=== PATIENT | male | born 1970 | race Caucasian/White ===

== ENCOUNTER 2018-09-13 20:54 | Emergency (ER) | payer OTHER, MEDICAID, SELFPAY ==
[2018-09-13] VITALS (12 sets, daily range): BP systolic 85–117; BP diastolic 50–67; PULSE 102–110; RESP 18–22; TEMP 36.5–36.7; O2SAT 89–96; BMI 29.2
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
--- NOTE | 2018-09-13 21:24 | PC.NURSE ---
Alert, oriented, skin warm and dry to touch, resp at 22 non labored. remains on 02 at 3 liters per canula. C/o severe abd pain. B/P remain low. Morphine 1 mg IV given. Pt transported to ct
[2018-09-13 21:28] LABS: Basophils % 0.3 % (0.1-2.0); Eosinophils # 0.2 K/mm3 (0.0-0.4); Eosinophils % 1.4 % (0.1-12.0); Lymphocytes # 1.9 K/mm3 (0.7-4.5); Lymphocytes % 13.8 % (10-50); Mean Corpuscular HGB Conc 31.6 g/dL (31.8-35.4); Mean Corpuscular Hemoglobin 28.8 pg (27.0-31.2); Mean Corpuscular Volume 91.3 fl (80-94); Mean Platelet Volume 6.7 fl (7.4-10.4); Monocytes # 0.9 K/mm3 (0.1-1.0); Monocytes % 6.4 % (1.7-9.3); Neutrophils # 10.6 K/mm3 (1.8-7.8); Neutrophils % 78.1 % (37.0-80.0); Platelet Count 486 K/mm3 (142-424); Red Blood Count 2.59 M/mm3 (4.60-6.20); Red Cell Distribution Width 13.1 % (11.5-17.5); White Blood Count 13.5 K/mm3 (4.8-10.8)
[2018-09-13 21:34] LABS: Hematocrit 23.7 % (42.0-52.0); Hemoglobin 7.5 g/dL (14.1-18.0)
[2018-09-13 21:37] LABS: Alanine Aminotransferase 24 U/L (12-78); Albumin Level 2.5 gm/dL (3.4-5.0); Albumin/Globulin Ratio 0.7 (1.1-1.8); Alkaline Phosphatase 80 U/L (46-116); Anion Gap 17.3 mEq/L (5-15); Aspartate Amino Transferase 19 U/L (15-37); Bilirubin,Total 0.5 mg/dL (0.2-1.0); Blood Urea Nitrogen 15 mg/dL (7-18); Calcium 8.4 mg/dL (8.5-10.1); Carbon Dioxide 22 mmol/L (21.0-32.0); Chloride 100 mmol/L (98-107); Creatinine Clearance Estimated 124 mL/min (50-200); Estimated Glomerular Filt Rate 80 ml/min (>60); GFR (African American) 97 ML/MIN (>60); Globulin 3.7 gm/dl (1.3-3.2); Glucose 140 mg/dL (74-106); Potassium 4.3 mmoL/L (3.5-5.1); Sodium 135 mmol/L (136-145); Total Protein,Serum 6.2 gm/dL (6.4-8.2); Troponin I < 0.02 ng/ml (0.00-0.06)
--- NOTE | 2018-09-13 21:43 | PC.NURSE ---
Rashmi Grossman Calling to see about flight
--- NOTE | 2018-09-13 21:47 | PC.NURSE ---
[employer] called declined for weather will check other services.
--- NOTE | 2018-09-13 21:49 | [facility].EDGENADL ---
ED Disposition Clinical Impression: Pneumothorax on left Traumatic rupture of spleen Qualifiers: Encounter type: initial encounter Qualified Code(s): S36.09XA - Other injury of spleen, initial encounter Ribs, multiple fractures Qualifiers: Encounter type: initial encounter Fracture type: closed Laterality: bilateral Qualified Code(s): S22.43XA - Multiple fractures of ribs, bilateral, initial encounter for closed fracture Right pulmonary contusion Qualifiers: Encounter type: initial encounter Qualified Code(s): S27.321A - Contusion of lung, unilateral, initial encounter Disposition: Xfer Short-Term Hosp Condition on Discharge: Critical Referrals: Provider,Referral, MD [Primary Care Provider] - Forms: Transfer Record - ED - Critical Care Critical Care Time: Yes Attestation: On 09/13/18, the high probability of a clinically significant, sudden or life threatening deterioration of the following system(s) required my full and direct attention, intervention and personal management. The time I documented below is in addition to time spent performing reported procedures but includes the following listed in this critical care notation. Total Critical Care Time: 60 Vital system(s) involved:: Shock (Hemorrhage) My critical care processes included: Assessment & monitoring of V/S, Initial and Re-exams, Data Review/Interpretation, Coordinating Care, Medication Orders and management Medical Decision Making - Medical Records Medical records reviewed: Yes: I reviewed the patient's medical records. - Jose Inquiry Pt receiving controlled substance: No Vital Signs: 09/13/18 20:54 09/13/18 20:56 Temperature 98.0 F Temperature Source Oral Pulse Rate [Right Brachial] 106 H 102 H Respiratory Rate 20 Blood Pressure [Right Arm] 93/57 L 96/57 L Blood Pressure Mean [Right Arm] 69 70 Blood Pressure Source [Right Arm] Automatic Cuff Automatic Cuff Blood Pressure Position [Right Arm] Supine Sitting 02 Sat by Pulse Oximetry 92 L 89 L Oxygen Delivery Method Nasal Cannula Room Air Oxygen Flow Rate (LPM) 3 - Lab Data Lab results reviewed: Yes: I reviewed the patient's lab results. Lab Results 09/13/18 21:05: WBC 13.5 H, RBC 2.59 L, Hgb 7.5 L*, Hct 23.7 L*, MCV 91.3, MCH 28.8, MCHC 31.6 L, RDW 13.1, Plt Count 486 H, MPV 6.7 L, Neut % (Auto) 78.1, Lymph % (Auto) 13.8, [place] % (Auto) 6.4, Eos % (Auto) 1.4, Baso % (Auto) 0.3, Neut # (Auto) 10.6 H, Lymph # (Auto) 1.9, [place] # (Auto) 0.9, Eos # (Auto) 0.2, Baso # (Auto) 0.0 09/13/18 21:05: Sodium 135 L, Potassium 4.3, Chloride 100, Carbon Dioxide 22, Anion Gap 17.3 H, BUN 15, Creatinine 1.00, Estimated Creat Clear 124, Estimated GFR 80, Est GFR ( Amer) 97, Glucose 140 H, Calcium 8.4 L, Total Bilirubin 0.5, AST 19, ALT 24, Alkaline Phosphatase 80, Troponin I < 0.02, Total Protein 6.2 L, Albumin 2.5 L, Globulin 3.7 H, Albumin/Globulin Ratio 0.7 L Result diagrams: 09/13/18 21:05 09/13/18 21:05 Orders (Tests/Meds): ED MEDICATIONS Discontinued Medications Generic Name Dose Route Start Last Admin Trade Name Freq PRN Reason Stop Dose Admin Morphine Sulfate 1 mg 09/13/18 21:23 09/13/18 21:24 Morphine 2mg/Ml Syringe IV 09/13/18 21:24 1 mg ONCE ONE Administration ORDERS Category Date Time Status CT abdomen pelvis wo con Stat Cat Scan 09/13/18 21:[address] cervical spine wo con Stat Cat Scan 09/13/18 21:[address] chest wo con Stat Cat Scan 09/13/18 21:05 Ordered XR chest portable Stat Exams 09/13/18 21:07 Taken ECG Request by /Roseanne Stat Y 09/13/18 21:05 Ordered - Radiology Data #1 Image(s): Chest Image Reviewed: Yes I reviewed the patient's radiology image Preliminary Findings: Abnormal (pul contusion) - CT Data CT Scan: C-Spine, Abdomen, Pelvis, Chest Time Received: 22:[address] Reviewed: Yes: I have viewed the radiologist's interpretation Preliminary Findings: Abnormal (see reports ) - ECG Data Tracing #1 Normal
--- NOTE | 2018-09-13 21:56 | ED_ITS ---
ED Disposition Clinical Impression: Pneumothorax on left Traumatic rupture of spleen Qualifiers: Encounter type: initial encounter Qualified Code(s): S36.09XA - Other injury of spleen, initial encounter Ribs, multiple fractures Qualifiers: Encounter type: initial encounter Fracture type: closed Laterality: bilateral Qualified Code(s): S22.43XA - Multiple fractures of ribs, bilateral, initial encounter for closed fracture Right pulmonary contusion Qualifiers: Encounter type: initial encounter Qualified Code(s): S27.321A - Contusion of lung, unilateral, initial encounter Disposition: Xfer Short-Term Hosp Condition on Discharge: Critical Referrals: Provider,Referral, MD [Primary Care Provider] - Forms: Transfer Record - ED - Critical Care Critical Care Time: Yes Attestation: On 09/13/18, the high probability of a clinically significant, sudden or life threatening deterioration of the following system(s) required my full and direct attention, intervention and personal management. The time I documented below is in addition to time spent performing reported procedures but includes the following listed in this critical care notation. Total Critical Care Time: 60 Vital system(s) involved:: Shock (Hemorrhage) My critical care processes included: Assessment & monitoring of V/S, Initial and Re-exams, Data Review/Interpretation, Coordinating Care, Medication Orders and management Medical Decision Making - Medical Records Medical records reviewed: Yes: I reviewed the patient's medical records. - Jose Inquiry Pt receiving controlled substance: No Vital Signs: 09/13/18 20:54 09/13/18 20:56 Temperature 98.0 F Temperature Source Oral Pulse Rate [Right Brachial] 106 H 102 H Respiratory Rate 20 Blood Pressure [Right Arm] 93/57 L 96/57 L Blood Pressure Mean [Right Arm] 69 70 Blood Pressure Source [Right Arm] Automatic Cuff Automatic Cuff Blood Pressure Position [Right Arm] Supine Sitting 02 Sat by Pulse Oximetry 92 L 89 L Oxygen Delivery Method Nasal Cannula Room Air Oxygen Flow Rate (LPM) 3 - Lab Data Lab results reviewed: Yes: I reviewed the patient's lab results. Lab Results 09/13/18 21:05: WBC 13.5 H, RBC 2.59 L, Hgb 7.5 L*, Hct 23.7 L*, MCV 91.3, MCH 28.8, MCHC 31.6 L, RDW 13.1, Plt Count 486 H, MPV 6.7 L, Neut % (Auto) 78.1, Lymph % (Auto) 13.8, [place] % (Auto) 6.4, Eos % (Auto) 1.4, Baso % (Auto) 0.3, Neut # (Auto) 10.6 H, Lymph # (Auto) 1.9, [place] # (Auto) 0.9, Eos # (Auto) 0.2, B aso # (Auto) 0.0 09/13/18 21:05: Sodium 135 L, Potassium 4.3, Chloride 100, Carbon Dioxide 22, Anion Gap 17.3 H, BUN 15, Creatinine 1.00, Estimated Creat Clear 124, Estimated GFR 80, Est GFR ( Amer) 97, Glucose 140 H, Calcium 8.4 L, Total Bilirubin 0.5, AST 19, ALT 24, Alkaline Phosphatase 80, Troponin I < 0.02, Total Protein 6.2 L, Albumin 2.5 L, Globulin 3.7 H, Albumin/Globulin Ratio 0.7 L Result diagrams: 09/13/18 21:05 09/13/18 21:05 Orders (Tests/Meds): ED MEDICATIONS Discontinued Medications Generic Name Dose Route Start Last Admin Trade Name Freq PRN Reason Stop Dose Admin Morphine Sulfate 1 mg 09/13/18 21:23 09/13/18 21:24 Morphine 2mg/Ml Syringe IV 09/13/18 21:24 1 mg ONCE ONE Administration
--- NOTE | 2018-09-13 22:00 | PC.NURSE ---
Pt gave verbal consent to receive blood, pt understood that the blood was uncrossed and not matched and agreed. Verbal consent was given to myself and Can KEVIN.
--- NOTE | 2018-09-13 22:05 | PC.NURSE ---
Lab notified to get 2 units un typed blood to the room.
--- NOTE | 2018-09-13 22:15 | PC.NURSE ---
Second unit of blood started at this.
--- NOTE | 2018-09-13 22:20 | PC.NURSE ---
Report called to Víctor Garcia RN from ER at this time.
--- NOTE | 2018-09-13 22:30 | PC.NURSE ---
EMS at bedside to transfer pt.
--- NOTE | 2018-09-14 01:26 | PC.NURSE ---
Addendum entered by Shu Kang RN 09/14/18 01:27: Blood was started 09/13/18 22:10 Original Note: First unit of blood started at this time. Jo. Fredy KEVIN at the bedside with myself and the pt.
--- NOTE | 2018-09-14 01:28 | PC.NURSE ---
First unit of blood complete.
--- NOTE | 2018-09-14 01:31 | PC.NURSE ---
Late entry Upon arrival to ER room to accompany pt for transport to . Pt noted to have blood transfusion in progress along with 0.9% NS infusing in RFA. LR infusing in RAC. Pt was accompanied by this nurse, jinriksha driver and EMT in route to . During transfer pt c/o pain with rating of 10 on [employer] DELINQUENCY PREVENTION. Pt was administered fentanyl 25 mcg IV x3 per jinriksha driver per MD order @ 2250, 2302, 2317. Pt was also administered additional 1 L LR. VS unstable at times. Pt remained A&O x3 during transfer. Pt arrived to hospital at 2321. Blood vitals are as follows in route to hospital: 2241- 139/83, T 96.9, P 104, R 21, 96% 2L 2250 - 134/81, P 105, R 22, 90% on nonrebreather 2254 - 131/79, P 103, R 21, 100% on nonrebreather 2302 - 137/96, P 105, R 22, 100% nonrebreather 2305 - 141/90, T 96.7, P 102, R 20, 100% nonrebreather, 2nd Unit Blood transfusion Complete 2312 - 148/90, P 106, R 22, R 98% 2 L NC 2317 - 153/115, P 108, R22, 97% 2L NC 2321 - 152/105, T 97.4, P 106, 100% 2L NC, Arrived to hospital
[2018-09-14 07:09] VITALS: BP 117/59; PULSE 107; RESP 20; TEMP 36.6; O2SAT 96
== END 2018-09-13 22:37 | disposition short-term general hospital (02) ==
PROVIDERS: Emergency Provider Emergency Medicine
DX: S22.43XA Multiple fractures of ribs, bilateral, initial encounter for closed fracture (principal); S36.09XA Other injury of spleen, initial encounter; S27.321A Contusion of lung, unilateral, initial encounter; J93.9 Pneumothorax, unspecified; V89.2XXA Person injured in unspecified motor-vehicle accident, traffic, initial encounter
CPT/HCPCS: 36430; 71045; 71250; 72125; 74176; 80053; 84484; 85025; 86850; 93005; 96365; 96375; 96376; 99285; P9016

== ENCOUNTER → 2018-11-15 13:53 | Outpatient (CLI) | payer MEDICAID, SELFPAY ==
[2018-11-15 16:50] LABS: Amphetamine/Metha Screen,Urine Negative ng/mL (<1000); Barbiturates Screen,Urine Negative ng/mL (<200); Benzodiazepines Screen,Urine Negative ng/mL (<200); Cannabinoid Screen,Urine Negative ng/mL (<50); Cocaine Screen,Urine Negative ng/mL (<300); Methadone Screen,Urine Negative ng/mL (<300); Opiate Screen,Urine Negative ng/mL (<300); Phencyclidine Screen,Urine Negative ng/mL (<25)
[2018-11-25 22:24] LABS: Opiates Negative (Cutoff=100)
== END ==
PROVIDERS: Visit Provider Emergency Medicine
DX: R30.0 Dysuria (principal); Z79.891 Long term (current) use of opiate analgesic
CPT/HCPCS: 80305; 80361; 80365; G0480

== ENCOUNTER → 2018-12-13 11:44 | Outpatient (CLI) | payer MEDICAID, SELFPAY ==
--- NOTE | 2018-12-13 11:57 | XR_ITS ---
PROCEDURE: XR KNEE RT 2V CLINICAL INDICATION: knee pain COMPARISON: No exams were available for comparison FINDINGS: No fracture or dislocation. No lytic or blastic change. There is normal mineralization. The joint spaces are well-preserved. No significant degenerative/arthritic changes. No erosive changes evident. Other findings:None. IMPRESSION: No acute findings. Dictated by: Kumar Johnston MD 12/13/2018 14:45 Electronically signed by Kumar Johnston MD in [place] 12/13/2018 14:45
--- NOTE | 2018-12-13 11:57 | XR_ITS ---
PROCEDURE: XR LUMBAR SPINE 2-3V CLINICAL INDICATION: back pain COMPARISON: ABDPELWO CT abdomen pelvis wo con from 09/13/2018 FINDINGS: There is kyphosis of the thoracolumbar junction with mild wedging a T11-T12 and L1 with anterior osteophytes at these levels. This wedging does appear old. No acute fracture or dislocation. No lytic or blastic change. Postsurgical changes are present of the right hip IMPRESSION: Kyphosis of the thoracolumbar spine with chronic wedging of T11-T12 and L1 with degenerative disc disease at these levels. No acute finding. Dictated by: Kumar Johnston MD 12/13/2018 14:34 Electronically signed by Kumar Johnston MD in [facility] 12/13/2018 14:34
--- NOTE | 2018-12-13 11:57 | XR_ITS ---
PROCEDURE: XR SHOULDER RT MIN 2V CLINICAL INDICATION: right shoulder pain COMPARISON: No exams were available for comparison FINDINGS: There are mild osteoarthritic changes of the acromioclavicular joint. The glenohumeral joint has an unremarkable appearance. No fracture or dislocation. No significant subacromial stenosis. IMPRESSION: Mild osteoarthritis of the acromioclavicular joint otherwise negative Dictated by: Kumar Johnston MD 12/13/2018 14:30 Electronically signed by Kumar Johnston MD in [facility] 12/13/2018 14:30
--- NOTE | 2018-12-13 11:57 | XR_ITS ---
PROCEDURE: XR CERVICAL SPINE 3V CLINICAL INDICATION: neck pain Neck pain COMPARISON: No exams were available for comparison FINDINGS: Straightening of cervical lordosis which may be due to patient positioning or muscle spasm. There is 2 mm anterolisthesis of C5 on C6. The disc spaces are well preserved. No fracture or dislocation. No lytic or blastic change. Carotid calcifications are noted. IMPRESSION: Straightening of lordosis otherwise negative Dictated by: Kumar Johnston MD 12/13/2018 14:46 Electronically signed by Kumar Johnston MD in [facility] 12/13/2018 14:46
--- NOTE | 2018-12-13 11:57 | XR_ITS ---
PROCEDURE: XR HIP LT 2-3V W/PELVIS CLINICAL INDICATION: hip pain Posttraumatic pain COMPARISON: No exams were available for comparison FINDINGS: There has been prior ORIF of the right acetabulum with a bone plate and multiple screws at the acetabular region with mild osteoarthritic change of the right hip. There is slight decrease in the left hip joint space superiorly which may be seen with early osteoarthritic change. No acute fracture or dislocation evident. No lytic or blastic change IMPRESSION: Minimal osteoarthritic change of the left hip and right hip with post surgical changes of the right hip Dictated by: Kumar Johnston MD 12/13/2018 15:12 Electronically signed by Kumar Johnston MD in [facility] 12/13/2018 15:12
== END ==
PROVIDERS: PCP Emergency Medicine; Visit Provider Emergency Medicine
DX: M25.552 Pain in left hip (principal); M54.2 Cervicalgia; M25.561 Pain in right knee; M54.9 Dorsalgia, unspecified; M25.511 Pain in right shoulder
CPT/HCPCS: 72040; 72100; 73030; 73502; 73560

== ENCOUNTER → 2019-01-10 14:27 | Outpatient (CLI) | payer MEDICAID, SELFPAY ==
[2019-01-10 20:26] LABS: Amphetamine/Metha Screen,Urine Negative ng/mL (<1000); Barbiturates Screen,Urine Negative ng/mL (<200); Benzodiazepines Screen,Urine Negative ng/mL (<200); Cannabinoid Screen,Urine Negative ng/mL (<50); Cocaine Screen,Urine Negative ng/mL (<300); Methadone Screen,Urine Negative ng/mL (<300); Opiate Screen,Urine Positive ng/mL (<300); Phencyclidine Screen,Urine Negative ng/mL (<25)
== END ==
PROVIDERS: Visit Provider Emergency Medicine
DX: Z79.899 Other long term (current) drug therapy (principal)
CPT/HCPCS: 80305

== ENCOUNTER → 2019-03-13 14:02 | Outpatient (CLI) | payer OTHER, SELFPAY ==
[2019-03-13 16:55] LABS: Amphetamine/Metha Screen,Urine Negative ng/mL (<1000); Barbiturates Screen,Urine Negative ng/mL (<200); Benzodiazepines Screen,Urine Negative ng/mL (<200); Cannabinoid Screen,Urine Negative ng/mL (<50); Cocaine Screen,Urine Negative ng/mL (<300); Methadone Screen,Urine Negative ng/mL (<300); Opiate Screen,Urine Negative ng/mL (<300); Phencyclidine Screen,Urine Negative ng/mL (<25)
[2019-05-20 18:13] LABS: Oxycodone (GC/MS) 392 ng/mL (Cutoff=100)
[2019-05-20 22:06] LABS: Opiates Negative (Cutoff=100); Oxymorphone (GC/MS) 646 ng/mL (Cutoff=100)
== END ==
PROVIDERS: Emergency Medicine; Visit Provider Nurse Practitioner Family
DX: Z79.899 Other long term (current) drug therapy (principal)
CPT/HCPCS: 80305; 80361; 80365; G0480

== ENCOUNTER → 2019-05-08 16:53 | Outpatient (CLI) | payer OTHER, SELFPAY ==
[2019-05-08 20:58] LABS: Amphetamine/Metha Screen,Urine Negative ng/mL (<1000); Barbiturates Screen,Urine Negative ng/mL (<200); Benzodiazepines Screen,Urine Negative ng/mL (<200); Cannabinoid Screen,Urine Negative ng/mL (<50); Cocaine Screen,Urine Negative ng/mL (<300); Methadone Screen,Urine Negative ng/mL (<300); Opiate Screen,Urine Negative ng/mL (<300); Phencyclidine Screen,Urine Negative ng/mL (<25)
== END ==
PROVIDERS: Visit Provider Emergency Medicine
DX: Z79.899 Other long term (current) drug therapy (principal)
CPT/HCPCS: 80305

== ENCOUNTER → 2019-07-31 14:34 | Outpatient (CLI) | payer OTHER, SELFPAY ==
--- NOTE | 2019-07-31 14:44 | XR_ITS ---
PROCEDURE: XR HIP RT 2-3V W/PELVIS CLINICAL INDICATION: right hip pain COMPARISON: ABDPELWO CT abdomen pelvis wo con from 09/13/2018 XR HIP LT 2-3V W/PELVIS from 12/13/2018 FINDINGS: There has been prior surgery of the right hip 2 bone plates over the acetabulum. There are minimal osteoarthritic changes of the right hip. No acute fracture or dislocation. IMPRESSION: Prior ORIF of the right acetabulum with minimal osteoarthritis Dictated by: Kumar Johnston MD 07/31/2019 16:12 Electronically signed by Kumar Johnston MD in [facility] 07/31/2019 16:12
--- NOTE | 2019-07-31 14:44 | XR_ITS ---
PROCEDURE: XR HIP LT 2-3V W/PELVIS CLINICAL INDICATION: left hip pain COMPARISON: XR HIP LT 2-3V W/PELVIS from 12/13/2018 FINDINGS: No fracture or dislocation is evident. No significant degenerative change. No lytic or blastic change. Unremarkable soft tissues. IMPRESSION: Negative left hip Dictated by: Kumar Johnston MD 07/31/2019 16:10 Electronically signed by Kumar Johnston MD in [facility] 07/31/2019 16:10
== END ==
PROVIDERS: PCP Emergency Medicine; Visit Provider Orthopaedic Surgery
DX: M25.551 Pain in right hip (principal); M25.552 Pain in left hip
CPT/HCPCS: 73502

== ENCOUNTER → 2019-09-17 16:46 | Outpatient (CLI) | payer OTHER, SELFPAY ==
[2019-09-19 10:59] LABS: Testosterone,Total 203 ng/dL (264-916)
== END ==
PROVIDERS: Visit Provider Emergency Medicine
DX: R53.83 Other fatigue (principal); R79.89 Other specified abnormal findings of blood chemistry
CPT/HCPCS: 84403

== ENCOUNTER → 2019-10-08 10:00 | Outpatient (CLI) | payer OTHER, SELFPAY ==
[2019-10-09 06:38] LABS: Testosterone,Total 227 ng/dL (264-916)
== END ==
PROVIDERS: Visit Provider Physician Assistant
DX: R79.89 Other specified abnormal findings of blood chemistry (principal)
CPT/HCPCS: 36415; 84403

== ENCOUNTER → 2019-10-29 15:16 | Outpatient (CLI) | payer OTHER, SELFPAY ==
[2019-10-29 17:32] LABS: Coronavirus 19 IgG Antibody Negative (Negative); Coronavirus 19 IgM Antibody Negative (Negative)
== END ==
PROVIDERS: PCP Emergency Medicine; Visit Provider Emergency Medicine
DX: Z01.818 Encounter for other preprocedural examination (principal); G47.33 Obstructive sleep apnea (adult) (pediatric); G47.36 Sleep related hypoventilation in conditions classified elsewhere; R06.83 Snoring; R40.0 Somnolence
CPT/HCPCS: 36415; 86328; 95811

== ENCOUNTER → 2019-12-10 12:57 | Outpatient (CLI) | payer OTHER, SELFPAY ==
--- NOTE | 2019-12-10 12:57 | MR_ITS ---
PROCEDURE: MR HIP LT WO CON CLINICAL INDICATION: left hip pain Pt. c/o left hip pain with no known injury or trauma. Pt has had prior rt hip surgery. prior left hip xrays done 07/31/19 COMPARISON: CR XR HIP LT 2-3V W/PELVIS from 07/31/2019 TECHNIQUE: Routine multiplanar multi echo sequences are performed without gadolinium enhancement. FINDINGS: There is significant artifact from the right acetabular plates and screws obscuring evaluation of the right hip. The left hip has an unremarkable appearance. There is no evidence of fracture or dislocation. No evidence of avascular necrosis. No bony destructive process apparent. No overlying soft tissue mass or abnormal fluid collection. No significant effusion. There is some increased activity posterior to the superior aspect of the greater trochanter nonspecific but could be seen with trochanteric bursitis. IMPRESSION: 1. Possible trochanteric bursitis on the left. 2. Otherwise negative MRI of the left hip Dictated by: Kumar Johnston MD 12/12/2019 10:42 Kumar Johnston MD in [facility] 12/12/2019 10:42
== END ==
PROVIDERS: PCP Emergency Medicine; Visit Provider Emergency Medicine
DX: M25.552 Pain in left hip (principal)
CPT/HCPCS: 73721

== ENCOUNTER → 2020-01-21 08:58 | Outpatient (POV) | payer OTHER, SELFPAY ==
[2020-01-21 09:17] VITALS: BP 139/82; PULSE 85; RESP 18; O2SAT 98; BMI 32.4
--- NOTE | 2020-01-21 10:12 | HMH.PMCON ---
Assessment and Plan (1) Trochanteric bursitis of left hip Status: Chronic Category: Medical Code(s): M70.62 - Trochanteric bursitis, left hip (2) Sacroiliitis Status: Chronic Category: Medical Code(s): M46.1 - Sacroiliitis, not elsewhere classified - Assessment and plan all Dx Assessment and Plan for all problems:: We will schedule the patient for a left SI joint injection left greater trochanteric bursa injection. I will follow-up with him after this reassess his symptoms at that time he has been instructed to call the office if he has any issues prior to his next appointment. We will also send him to physical therapy to develop a home program. Dr. Payne has reviewed this note and agrees with this plan of care. This note was dictated using voice recognition software and may contain errors or omissions HPI - Data of Consult Consult date: 01/21/20 Requesting Physician: Deborah Cervantes APRN Primary Care Provider: Anatoliy Coyne MD - Consult Narrative Reason for consult: Hip pain, back pain History of present illness: Mr. Cooper is a 49 year old male patient is a pleasant 49-year-old white male who presents today for consultation regards to his left hip and low back pain. Patient had a surgery on his right hip back 18 years ago. Patient's not having much pain from this however he does have left hip pain left low back pain. Patient has extreme tenderness over his left SI. Patient also has extreme tenderness over his left greater trochanteric bursa. Patient rates his pain a 6 out of 10. Patient is currently on a low dose of Percocet which has not been extremely helpful however it does take the edge off of his pain. It is an appropriate dose. Patient does have a positive Pascual test SI joint compression test and distraction test and Kirstie's test on the left side. Dr. Payne has reviewed this note and agrees with this plan of care. This note was dictated using voice recognition software and may contain errors or omissions states that he would like to transition physical therapy to a home based program. I do agree with this. CC: Deborah Cervantes APRN [facility] History I have reviewed the patient's past medical history: Yes Medical History: Reports:: Anxiety, Hypertension Denies:: Cancer, Diabetes Mellitus Type 1, Diabetes Mellitus Type 2, MRSA *Have you ever received a pneumonia vaccine?: Yes *Have you received a flu vaccine this season?: Yes Other Medical History: Reports: Other Laterality Cases: Right: Arthroscopy Hip Other Surgeries: Yes: No Previous Surgery, Colonoscopy, Hernia Repair, Splenectomy Amputation: No Fractures: Yes - *Social History Smoking Status: Current every day smoker Tobacco Type: cigarettes # Packs/Day (cigarettes): 1 Alcohol Intake: never Alcohol Intake Frequency:: a few times a month Substance Use Type: denies use *Occupational Status:: other Housing: house Household Members: other *Travel in the last 8 weeks: None - Psychiatric History Pschychiatric History:: Reports:: Anxiety Family Hx:: Unable to obtain Review of Systems - Review of Systems ROS General: no recent weight change, no fever, no sleep disturbances Respiratory: no cough, no shortness of air, no recurring pulmonary infections Cardiovascular/Peripheral Vascular: No chest pain, No palpitations, no edema, no shortness of breath. Gastrointestinal: no new onset incontinence, normal bowel movements reported Genitourinary: no new onset incontinence Musculoskeletal: Left SI joint pain, left hip pain Psychiatric: normal mood/ affect Neurological: [denies new onset weakness in extremities], [denies new onset balance issues] Meds Home Medications Medication Instructions Recorded Confirmed Type nicotine 21 mg/24 hr daily 1 patch TRANSDERMA DAILY #30 each 05/08/19 01/07/20 Rx transdermal patch lisinopril 20 mg tablet 20 mg PO DAILY #30 tab 11/14/19 01/07/20 Rx loratadine 10 mg tablet 10 mg PO D
== END ==
PROVIDERS: PCP Emergency Medicine; Visit Provider Clinical Nurse Specialist Family Health
DX: M70.62 Trochanteric bursitis, left hip (principal); M46.1 Sacroiliitis, not elsewhere classified
CPT/HCPCS: 99202

== ENCOUNTER → 2020-01-21 14:21 | Outpatient (CLI) | payer OTHER, SELFPAY ==
--- NOTE | 2020-01-21 14:21 | MR_ITS ---
PROCEDURE: MR LUMBAR SPINE WO CON CLINICAL INDICATION: back pain LBP WITH BILATERAL HIP PAIN BUT LT HIP IS WORSE. SYMPTOMS X3-4YRS. NO INJURY. LT LEG PAIN. PRIOR X-RAY 12-13-18 COMPARISON: CR XR LUMBAR SPINE 2-3V from 12/13/2018 TECHNIQUE: Standard multiplanar multiecho sequences are performed without contrast. 3-D MIP and myelographic images are also rendered and reviewed FINDINGS: There is normal alignment. There is kyphosis of the lower thoracic spine. Mild degenerative disc disease T11-T12. Degenerative disc disease with endplate irregularity is present at T12-L1 with mild bulging disc. The spinal cord ends at the L1-L2 level. There is minimal central disc protrusion at T12-L1 without impingement. There is mild narrowing of the canal at this level at 11 mm. There is mild wedge contour of T12 and L1 which appears chronic. L1-L2: Unremarkable. L2-L3: Unremarkable. L3-L4: Mild facet hypertrophic change with a small amount fluid in the facet joints at this level. L4-5: Mild facet hypertrophic change L5-S1: Bulging disc with a small broad based central disc protrusion slightly eccentric toward the left. This disc protrusion abuts the anterior medial aspect of both S1 nerve roots with bilateral lateral recess narrowing. Annular fissure is present centrally. There is facet hypertrophic change with bilateral foraminal narrowing greater on the left. There is a small area of increased T2 signal in the inferior endplate of L5 posteriorly. Incidental note is made of a 2 cm left renal cyst. IMPRESSION: 1. Kyphosis of the lower thoracic spine with degenerative disc disease at T11-T12 and T12-L1 with bulging disc and small central disc protrusion at T12-L1 and with narrowing of the canal at that level. No impingement. 2. L3-L4: Mild facet hypertrophic change with a small amount fluid in the facet joints at this level. 3. L4-5: Mild facet hypertrophic change 4. L5-S1: Bulging disc with a small broad based central disc protrusion slightly eccentric toward the left. This disc protrusion abuts the anterior medial aspect of both S1 nerve roots with bilateral lateral recess narrowing. Annular fissure is present centrally. There is facet hypertrophic change with bilateral foraminal narrowing greater on the left. There is a small area of increased T2 signal in the inferior endplate of L5 posteriorly. Dictated by: Kumar Johnston MD 01/22/2020 12:35 Kumar Johnston MD in [place] 01/22/2020 12:35
== END ==
PROVIDERS: PCP Emergency Medicine; Visit Provider Emergency Medicine
DX: M54.5 Low back pain (principal)
CPT/HCPCS: 72148; 76376

== ENCOUNTER 2020-01-28 14:17 | Day surgery (SDC) | payer OTHER, SELFPAY ==
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
[2020-01-28 14:54] VITALS: BP 143/91; PULSE 96; RESP 18; TEMP 36.4; O2SAT 96; BMI 32.4
--- NOTE | 2020-01-28 15:23 | P.PCN_ITS ---
- Procedure Date: 01/28/20 Time: 15:24 Anesthesiologist:: Deborah Cervantes APRN Complications:: None Pre-procedure Diagnosis:: Sacroiliitis, bursitis Post-procedure Diagnosis:: Same Indications for Procedure:: Mr. Cooper is a 49 year old male patient is a pleasant 49-year-old white male who presents today for left SI joint injection left greater trochanteric bursa injection. Patient has pain in his left hip and low back. Patient had a surgery on his right hip back 18 years ago. Patient's not having much pain from this however he does have left hip pain left low back pain. Patient has extreme tenderness over his left SI. Patient also has extreme tenderness over his left greater trochanteric bursa. Patient rates his pain a 6 out of 10. Patient had an MRI of his lower lumbar spine. At L5-S1 he does have a nerve abutment. If this does not help him today we will move forward with potential epidural steroid injections. Procedure Details:: Informed consent was obtained and the risks and benefits of the procedure were explained to the patient. Patient was taken to the procedure room. Patient was placed prone on the procedure table. The [right] hip was prepped using ChloraPrep as a cleansing solution. The skin and subcutaneous tissues were anesthetized using lidocaine. Using fluoroscopic guidance I placed a 22-gauge spinal needle into the inferior aspect of the [right] SI joint. After this I injected 5 mL bupivacaine 0.25% and Depo-Medrol 40 mg into the [right] SI joint. We then moved onto the bursa. Under fluoroscopic guidance the area of maximal tenderness was identified. The skin overlying the left hip region was prepped with ChloraPrep and draped in sterile fashion. Strict aseptic technique was observed throughout the entire procedure. The skin was anesthetized with 1% lidocaine without epinephrine. A 22-gauge spinal needle was passed to the area of the greater trochanteric bursa using fluoroscopic guidance. 1.5 mL's of Omnipaque 300 preservative-free contrast was injected into the joint to confirm location 3 mL's of a solution containing 0.25% bupivacaine and 40 mg of Depo- Medrol were injected into the bursa the patient tolerated this well with no complications. The needle was withdrawn and bandages were placed over the puncture site. On examination after the procedure, 70% pain relief was reported. The patient tolerated the procedure well with no complication. Plan and Disposition:: See the patient back in several weeks reassess his symptoms at that time he has been instructed to call the office if he has any issues prior to his next appointment. If the patient does not get any relief from this he may need an epidural steroid injection. Dr. Payne has reviewed this note and agrees with this plan of care. This note was dictated using voice recognition software and may contain errors or omissions
[2020-01-28 15:28] VITALS: BP 125/85; PULSE 84; RESP 18; O2SAT 98
[2020-01-28 15:29] VITALS: BP 132/85; PULSE 85; RESP 18; O2SAT 98
[2020-01-28 15:41] VITALS: BP 148/88; PULSE 87; RESP 18; O2SAT 98
== END 2020-01-28 15:42 | disposition home or self-care (01) ==
LOC: SC.PAINP 14:19
PROVIDERS: PCP Emergency Medicine; Visit Provider Clinical Nurse Specialist Family Health
DX: M46.1 Sacroiliitis, not elsewhere classified (principal); M70.61 Trochanteric bursitis, right hip; R91.8 Other nonspecific abnormal finding of lung field; K43.9 Ventral hernia without obstruction or gangrene
CPT/HCPCS: 20610; 27096; 71260; 74177; 77002; G0260; J1040; Q9966; Q9967

== ENCOUNTER → 2020-02-18 11:13 | Outpatient (POV) | payer OTHER, SELFPAY ==
[2020-02-18 11:22] VITALS: BP 156/82; PULSE 98; RESP 18; TEMP 36.8; O2SAT 98; BMI 32.3
--- NOTE | 2020-02-18 12:07 | HMH.PAINSOAP ---
[facility] Pain Management SOAP Note Subjective:: Pleasant 49-year-old white male who presents today for follow-up after left SI left greater trochanteric bursa injection. Patient got 90% relief of his symptomology. He rates his pain today a 2 out of 10. Patient has also recently lost 23 pounds. He is continuing a exercise program at home he is also eating healthy. Patient and I discussed repeating the injection one time when his pain begins to return. He is interested in doing so. Overall patient doing well. He does have a positive Pascual test Kirstie's test SI joint compression test and tender over his left greater trochanteric bursa. ROS General: no recent weight change, no fever, no sleep disturbances Respiratory: no cough, no shortness of air, no recurring pulmonary infections Cardiovascular/Peripheral Vascular: No chest pain, No palpitations, no edema, no shortness of breath. Gastrointestinal: no new onset incontinence, normal bowel movements reported Genitourinary: no new onset incontinence Musculoskeletal: Left hip pain, left SI joint pain Psychiatric: normal mood/ affect, Neurological: [denies new onset weakness in extremities], [denies new onset balance issues] Objective:: Physical Exam General: Alert and oriented x3, no acute distress, pleasant and cooperative, [on room air] Lungs: Resps E/U, Symmetrical chest expansion, Eyes: PERRL Musculoskeletal: Flexion and extension of lumbar spine somewhat guarded secondary to pain, deep tendon reflexes normal, strength in upper and lower extremities [5/5], slightly antalgic gait noted Neurological: speech clear, 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 I will follow-up with him after this reassess his symptoms at that time. He has been instructed to call the office if he has any issues prior to his next appointment. Dr. Payne has reviewed this note and agrees with this plan of care. This note was dictated using voice recognition software and may contain errors or omissions [facility] History I have reviewed the patient's past medical history: Yes Medical History: Reports:: Anxiety, Hyperlipidemia, Hypertension Denies:: Cancer, Diabetes Mellitus Type 1, Diabetes Mellitus Type 2, MRSA, Seizures *Have you ever received a pneumonia vaccine?: Yes *Have you received a flu vaccine this season?: Yes Other Medical History: Reports: Other. Denies: Blood Transfusion Reaction Laterality Cases: Right: Arthroscopy Hip Other Surgeries: Yes: No Previous Surgery, Colonoscopy, Hernia Repair, Splenectomy Amputation: No Fractures: Yes - *Social History Smoking Status: Current every day smoker Tobacco Type: cigarettes # Packs/Day (cigarettes): 1 Alcohol Intake: never Alcohol Intake Frequency:: a few times a month Substance Use Type: denies use *Occupational Status:: other Housing: house Household Members: spouse *Travel in the last 8 weeks: None - Psychiatric History Pschychiatric History:: Reports:: Anxiety Family Hx:: Unable to obtain
== END ==
PROVIDERS: PCP Emergency Medicine; Visit Provider Clinical Nurse Specialist Family Health
DX: M46.1 Sacroiliitis, not elsewhere classified (principal); M71.9 Bursopathy, unspecified
CPT/HCPCS: 99212

== ENCOUNTER 2020-02-18 14:30 | Outpatient (RCR) | payer OTHER, SELFPAY ==
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
== END 2020-02-18 15:20 | disposition home or self-care (01) ==
LOC: PT 14:30
PROVIDERS: PCP Emergency Medicine; Visit Provider Clinical Nurse Specialist Family Health
DX: M54.5 Low back pain; M25.552 Pain in left hip; M25.551 Pain in right hip
CPT/HCPCS: 97110; 97163

== ENCOUNTER 2020-03-03 14:18 | Day surgery (SDC) | payer OTHER, SELFPAY ==
[2020-03-03 14:37] VITALS: BP 160/94; PULSE 100; RESP 18; TEMP 36.4; O2SAT 98; BMI 31.5
[2020-03-03 15:20] VITALS: BP 120/75; PULSE 85; RESP 18; O2SAT 98
[2020-03-03 15:25] VITALS: BP 125/85; PULSE 85; RESP 18; O2SAT 98
--- NOTE | 2020-03-03 15:39 | HMH.PMPROC ---
- Procedure Date: 03/03/20 Time: 15:39 Anesthesiologist:: Deborah Cervantes APRN Complications:: None Pre-procedure Diagnosis:: Sacroiliitis, bursitis Post-procedure Diagnosis:: Same Indications for Procedure:: Mr. Cooper is a 49 year old male patient is a pleasant 49-year-old white male who presents today for left SI joint injection left greater trochanteric bursa injection. Patient has pain in his left hip and low back. Patient had a surgery on his right hip back 18 years ago. Patient's not having much pain from this however he does have left hip pain left low back pain. Patient has extreme tenderness over his left SI. Patient also has extreme tenderness over his left greater trochanteric bursa. Patient rates his pain a 4 out of 10. Patient did extremely well with this injection in the past. If he does not get the same relief we may discuss epidural steroid injections. Procedure Details:: Informed consent was obtained and the risks and benefits of the procedure were explained to the patient. Patient was taken to the procedure room. Patient was placed prone on the procedure table. The left hip was prepped using ChloraPrep as a cleansing solution. The skin and subcutaneous tissues were anesthetized using lidocaine. Using fluoroscopic guidance I placed a 22-gauge spinal needle into the inferior aspect of the left SI joint. After this I injected 5 mL bupivacaine 0.25% and Depo-Medrol 40 mg into the left SI joint. The patient tolerated the procedure well with no complication. He then moved onto the left greater trochanteric bursa. After informed consent was obtained and the risk and benefits were explained to the patient the patient was taken to the procedure room and placed in supine position. Under fluoroscopic guidance the area of maximal tenderness was identified. The skin overlying the left hip region was prepped with ChloraPrep and draped in sterile fashion. Strict aseptic technique was observed throughout the entire procedure. The skin was anesthetized with 1% lidocaine without epinephrine. A 22-gauge spinal needle was passed to the area of the greater trochanteric bursa using fluoroscopic guidance. 1.5 mL's of Omnipaque 300 preservative-free contrast was injected into the joint to confirm location 3 mL's of a solution containing 0.25% bupivacaine and 40 mg of Depo-Medrol were injected into the bursa the patient tolerated this well with no complications. The needle was withdrawn and bandages were placed over the puncture site. On examination after the procedure, 60% pain relief was reported. Plan and Disposition:: We will see the patient back in several weeks reassess his symptoms at that time he has been instructed to call the office if he has any issues prior to his next appointment. Dr. Payne has reviewed this note and agrees with this plan of care. This note was dictated using voice recognition software and may contain errors or omissions
[2020-03-03 15:42] VITALS: BP 159/91; PULSE 100; RESP 20; O2SAT 98
== END 2020-03-03 15:42 | disposition home or self-care (01) ==
LOC: SC.PAINP 14:18
PROVIDERS: PCP Emergency Medicine; Visit Provider Clinical Nurse Specialist Family Health
DX: M46.1 Sacroiliitis, not elsewhere classified (principal); M70.62 Trochanteric bursitis, left hip
CPT/HCPCS: 20610; 27096; 77002; G0260; J1030; Q9966

== ENCOUNTER → 2020-03-18 11:39 | Outpatient (CLI) | payer OTHER, SELFPAY ==
[2020-03-18 12:34] LABS: Basophils # 0.2 K/mm3 (0-0.2); Basophils % 1.7 % (0.1-2.0); Eosinophils # 0.2 K/mm3 (0.0-0.4); Eosinophils % 1.7 % (0.1-12.0); Lymphocytes # 4.3 K/mm3 (0.7-4.5); Lymphocytes % 31.5 % (10-50); Mean Corpuscular HGB Conc 33.3 g/dL (31.8-35.4); Mean Corpuscular Hemoglobin 31.5 pg (27.0-31.2); Mean Corpuscular Volume 94.6 fl (80-94); Monocytes # 1.1 K/mm3 (0.1-1.0); Monocytes % 7.7 % (1.7-9.3); Neutrophils # 7.8 K/mm3 (1.8-7.8); Neutrophils % 57.3 % (37.0-80.0); Platelet Count 593 K/mm3 (142-424); Red Blood Count 6.02 M/mm3 (4.60-6.20); Red Cell Distribution Width 13.6 % (11.5-17.5); White Blood Count 13.6 K/mm3 (4.8-10.8)
[2020-03-18 13:03] LABS: Chloride 103 mmol/L (98-107); Potassium 5.4 mmoL/L (3.5-5.1); Sodium 138 mmol/L (136-145)
[2020-03-18 13:06] LABS: Anion Gap 16.4 mEq/L (5-15); Blood Urea Nitrogen 18 mg/dl (9-20); Calcium 10.4 mg/dl (8.4-10.2); Carbon Dioxide 24 mmol/L (22.0-30.0); Estimated Glomerular Filt Rate 103 ml/min (>60); GFR (African American) 125 ML/MIN (>60); Glucose 100 mg/dl (74-100)
[2020-03-18 13:24] LABS: Coronavirus 19 IgG Antibody Negative (Negative); Coronavirus 19 IgM Antibody Negative (Negative)
== END ==
PROVIDERS: Visit Provider Surgery
DX: Z01.818 Encounter for other preprocedural examination (principal); Z03.818 Encounter for observation for suspected exposure to other biological agents ruled out; K43.2 Incisional hernia without obstruction or gangrene
CPT/HCPCS: 36415; 80048; 85025; 86328

== ENCOUNTER 2020-03-19 06:11 | Day surgery (SDC) | payer OTHER, SELFPAY ==
[2020-03-13 14:05] VITALS: BMI 29.9
[2020-03-19] VITALS (12 sets, daily range): BP systolic 103–122; BP diastolic 58–80; PULSE 92–97; RESP 14–18; TEMP 36.2–43; O2SAT 94–98
--- NOTE | 2020-03-19 07:51 | P.PN_ITS ---
[facility] Anesthesia Checklist - Patient Identification Patient Identification: Arm Band, Verbal (Name & ) - Structural Data Admitted From: Home Planned Operative Procedure/s: Laparoscopic incisional hernia repair Consent for Planned Operative Procedure(s) Verified: Yes Verified Documents: Surgical Consent, History and Physical - NPO Status Verified Time NPO: 20:00 - Chart Verification Results Verified: CBC, BMP - Additional verifications Anesthesia Reactions: No Hx Blood Transfusions: No Blood Transfusion Reaction: No - Airway Assessment C-Spine Mobility Assessed: Yes (MP 2, TMD 3) TMJ Mobility Assessed: Yes Dentition: Poor Dentition - Neurological Assessment Level of Consciousness: Awake, Alert, Appropriate, Follows Commands Hx Seizures: No Numbness or tingling in extremities: Yes - Anesthesia Plan Anesthesia Risk discussed: Yes Anesthesia Plan: Verified ASA Class: III Anesthesia Type: General [facility] History I have reviewed the patient's past medical history: Yes Medical History: Reports:: Hyperlipidemia, Hypertension Denies:: Cancer, Diabetes Mellitus Type 1, Diabetes Mellitus Type 2, Internal Pacemaker, MRSA, Seizures *Have you ever received a pneumonia vaccine?: No *Have you received a flu vaccine this season?: No Other Medical History: Reports: Other. Denies: Blood Transfusion Reaction Comment:: MASOOD uses CPAP, obesity, pulmonary HTN, chronic pain, Testosterone Anesthesia experience/problems:: None Laterality Cases: Right: Arthroscopy Hip Other Surgeries: Yes: Colonoscopy, Hernia Repair (x2), Splenectomy. No: Pacemaker Amputation: No Fractures: Yes - *Social History Last grade of school completed: Some college Smoking Status: Current every day smoker Tobacco Type: cigarettes # Packs/Day (cigarettes): 1 Alcohol Intake: never Alcohol Intake Frequency:: a few times a month Substance Use Type: denies use *Occupational Status:: other Housing: house Household Members: spouse *Travel in the last 8 weeks: None - Psychiatric History Pschychiatric History:: Reports:: Anxiety Family Hx:: Unable to obtain
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
--- NOTE | 2020-03-19 09:22 | HMH.ANESI ---
[facility] Anesthesia Record Part I Intake, IV Amount: 1,200 Estimated blood loss (mL): 15 Urine output (mL): 0 (NM) Blood Products used (#): none Blood Pressure: 112/74 SaO2: 94 Pulse Rate: 94 Respiratory Rate: 14 Temperature: 98.5 F Patient is:: Awake, Drowsy, Stable Stable to PACU at:: 09:20
[2020-03-19 09:29] LABS: Microscopic,Cath URINE MICROSCOPIC (MICROSCOPIC)
[2020-03-19 09:34] LABS: Appearance,Urine/Cath CLEAR (Clear); Bilirubin,Cath Negative (Negative); Blood, Urine/Cath Negative (Negative); Color,Urine/Cath YELLOW (Yellow); Glucose,Urine/Cath (UA) Negative (Negative); Ketones,Urine/Cath Negative (Negative); Leukocyte Esterase,Cath Negative (Negative); Nitrate,Cath Negative (Negative); PH,Urine/Cath 5.5 (5.0-8.5); Protein,Urine/Cath Negative (Negative); Specific Gravity, Urine/Cath >= 1.030 (1.005-1.030); Urobilinogen,Cath 0.2 EU/dl (0.2)
[2020-03-19 09:44] LABS: RBC,Urine/Cath Occasional # /hpf (0-3); Squamous Epithelial Ur./Cath Occasional #/hpf (0-5)
--- NOTE | 2020-03-19 10:14 | PC.NURSE ---
[id number]-detailed report called to HERBERTH Brenner 0932-pt transported to post op via stretcher w/amy rails up and left in care of HERBERTH Brenner with bed locked in lowest position, vss, pt stable
--- NOTE | 2020-03-19 18:13 | HMH.ANESII ---
[facility] Anesthesia Record Part II Discharge Time: 09:50 Destination: Surgical Day Care (OP Surgery) PACU nurse assessment reviewed?: Yes Patient Condition:: Good Anesthesia Complications:: None Swallowing reflex intact?: Yes Cyanosis?: No Blood Pressure: 103/68 Pulse Rate: 92 Temperature: 97.8 F Mental Status: Alert & Oriented Pain level:: 5 Nausea and/or vomitting:: None Intake, IV Amount: 0
== END 2020-03-19 10:22 | disposition home or self-care (01) ==
LOC: OR 06:14
PROVIDERS: PCP Emergency Medicine; Visit Provider Surgery
PROC: 0WQF4ZZ Repair Abdominal Wall, Percutaneous Endoscopic Approach (ICD-10-PCS; CPT 49655; principal; 2020-03-19 07:30)
DX: K43.2 Incisional hernia without obstruction or gangrene (principal); K66.0 Peritoneal adhesions (postprocedural) (postinfection); E78.5 Hyperlipidemia, unspecified; I10 Essential (primary) hypertension; G47.33 Obstructive sleep apnea (adult) (pediatric); I27.20 Pulmonary hypertension, unspecified; G89.29 Other chronic pain; F41.9 Anxiety disorder, unspecified; E66.9 Obesity, unspecified; Z68.30 Body mass index [BMI] 30.0-30.9, adult; Z72.0 Tobacco use; Z79.899 Other long term (current) drug therapy
CPT/HCPCS: 49655; 81001; 96374; C1781; J2405

== ENCOUNTER → 2020-03-31 10:52 | Outpatient (POV) | payer OTHER, SELFPAY ==
[2020-03-31 11:28] VITALS: BP 142/75; PULSE 85; RESP 18; O2SAT 98; BMI 30.4
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
== END ==
PROVIDERS: PCP Emergency Medicine; Visit Provider Clinical Nurse Specialist Family Health
DX: M46.1 Sacroiliitis, not elsewhere classified (principal); M70.62 Trochanteric bursitis, left hip
CPT/HCPCS: 94762; 99212; G0463

== ENCOUNTER → 2020-05-05 07:59 | Outpatient (CLI) | payer OTHER, SELFPAY ==
[2020-05-06 08:15] LABS: Benzodiazepines Screen,Urine Negative ng/ml (<200)
[2020-05-06 08:16] LABS: Amphetamine/Metha Screen,Urine Negative ng/ml (<1000)
[2020-05-06 08:17] LABS: Barbiturates Screen,Urine Negative ng/ml (<200); Methadone Screen,Urine Negative ng/ml (<300)
[2020-05-06 08:18] LABS: Cannabinoid Screen,Urine Negative ng/ml (<50)
[2020-05-06 08:19] LABS: Cocaine Screen,Urine Negative ng/ml (<300); Opiate Screen,Urine Positive ng/ml (<300)
[2020-05-06 08:20] LABS: Phencyclidine Screen,Urine Negative ng/ml (<25)
[2020-05-06 10:25] LABS: Basophils # 0.2 K/mm3 (0-0.2); Basophils % 1.5 % (0.1-2.0); Eosinophils # 0.2 K/mm3 (0.0-0.4); Eosinophils % 1.6 % (0.1-12.0); Hematocrit 53.4 % (42.0-52.0); Hemoglobin 17.1 g/dL (14.1-18.0); Lymphocytes # 4.1 K/mm3 (0.7-4.5); Mean Corpuscular Hemoglobin 31.4 pg (27.0-31.2); Mean Corpuscular Volume 98.1 fl (80-94); Mean Platelet Volume 9.9 fl (7.4-10.4); Monocytes # 0.9 K/mm3 (0.1-1.0); Monocytes % 7.3 % (1.7-9.3); Neutrophils # 7.3 K/mm3 (1.8-7.8); Neutrophils % 57.6 % (37.0-80.0); Platelet Count 564 K/mm3 (142-424); Red Blood Count 5.44 M/mm3 (4.60-6.20); White Blood Count 12.7 K/mm3 (4.8-10.8)
[2020-05-06 10:36] LABS: Chloride 105 mmol/L (98-107); Potassium 5.8 mmoL/L (3.5-5.1); Sodium 140 mmol/L (136-145)
[2020-05-06 10:38] LABS: Blood Urea Nitrogen 15 mg/dl (9-20); Estimated Glomerular Filt Rate 103 ml/min (>60); GFR (African American) 125 ML/MIN (>60)
[2020-05-06 10:39] LABS: Alanine Aminotransferase 30 U/L (12-78); Albumin Level 4.8 g/dl (3.5-5.0); Albumin/Globulin Ratio 1.7 (1.1-1.8); Alkaline Phosphatase 98 U/L (38-126); Aspartate Amino Transferase 28 U/L (17-59); Bilirubin,Total 0.6 mg/dl (0.2-1.3); Calcium 10.3 mg/dl (8.4-10.2); Carbon Dioxide 26 mmol/L (22.0-30.0); Cholesterol 188 mg/dl (140-200); Globulin 2.9 g/dL (1.3-3.2); Glucose 89 mg/dl (74-100); HDL Cholesterol 19 mg/dl (40-60); Total Protein,Serum 7.7 g/dl (6.3-8.2)
[2020-05-06 10:51] LABS: Direct LDL Cholesterol 97.99 mg/dL (100-129); Triglycerides 581 mg/dl (30-150)
[2020-05-06 14:10] LABS: Prostate Specific Ag Screen 1.2 ng/ml (0.0-4.0)
== END ==
PROVIDERS: Visit Provider Emergency Medicine
DX: M46.1 Sacroiliitis, not elsewhere classified (principal); E66.3 Overweight; Z12.5 Encounter for screening for malignant neoplasm of prostate; Z79.899 Other long term (current) drug therapy
CPT/HCPCS: 80053; 80061; 80305; 85025; G0103

== ENCOUNTER → 2020-05-26 13:58 | Outpatient (CLI) | payer OTHER, SELFPAY ==
[2020-05-26 16:25] LABS: Anion Gap 12.6 mEq/L (5-15); Blood Urea Nitrogen 9 mg/dl (9-20); Calcium 10.4 mg/dl (8.4-10.2); Carbon Dioxide 26 mmol/L (22.0-30.0); Chloride 103 mmol/L (98-107); Estimated Glomerular Filt Rate 90 ml/min (>60); GFR (African American) 109 ML/MIN (>60); Glucose 99 mg/dl (74-100); Potassium 5.6 mmoL/L (3.5-5.1); Sodium 136 mmol/L (136-145)
== END ==
LOC: LAB 13:58 → RT 14:09
PROVIDERS: PCP Emergency Medicine; Visit Provider Specialist
DX: G47.33 Obstructive sleep apnea (adult) (pediatric) (principal); G47.34 Idiopathic sleep related nonobstructive alveolar hypoventilation; E87.5 Hyperkalemia; Z68.31 Body mass index [BMI] 31.0-31.9, adult
CPT/HCPCS: 36415; 80048; 94762

== ENCOUNTER → 2020-06-02 12:31 | Outpatient (CLI) | payer OTHER, SELFPAY ==
--- NOTE | 2020-06-02 12:31 | CT_ITS ---
PROCEDURE: CT SINUS WO CON CLINICAL HISTORY: Nasal polyps, history deviated nasal septum COMPARISON: No exams were available for comparison TECHNIQUE: Axial images obtained with sagittal and coronal reformats. All CT scans at the facility use one or more dose reduction, viz: automated exposure control, ma/kV adjustment per patient size (including targeted exams where dose is matched to indication, i.e. head), or iterative reconstruction technique. FINDINGS: No significant mucosal thickening. No air-fluid levels. The ostiomeatal units are patent. There is moderate leftward nasal septal deviation anteriorly. There is a small soft tissue density in the left nasal canal measuring approximately 4-5 mm and could represent a small polyp versus prominent mucosal fold. There is narrowing of the left nasal canal from the nasal septal deviation. TMJs have an unremarkable appearance. The orbits are unremarkable. No mastoid effusion. IMPRESSION: Leftward nasal septal deviation with possible small nasal polyp otherwise negative CT sinuses Dictated by: Kumar Johnston MD 06/02/2020 13:35 Kumar Johnston MD in [place] 06/02/2020 13:35
== END ==
PROVIDERS: PCP Emergency Medicine; Visit Provider Otolaryngology
DX: J33.9 Nasal polyp, unspecified (principal)
CPT/HCPCS: 70486

== ENCOUNTER → 2020-06-25 09:12 | Outpatient (CLI) | payer OTHER, SELFPAY ==
--- NOTE | 2020-06-25 09:37 | ECG_ITS ---
APPROVED REPORT Exam: Resting ECG HR:100 bpm ECG Measurements Heart Rate 100 AXES AK 168 P 54 QRSd 100 QRS 93 QT 326 T 27 QTc 420 Conclusion Normal sinus rhythm Rightward axis Incomplete right bundle branch block Borderline ECG Electronically signed by : Orion Erazo, 06/25/2020 13:19:40
[2020-06-25 10:09] LABS: Basophils # 0.2 K/mm3 (0-0.2); Basophils % 1.2 % (0.1-2.0); Eosinophils # 0.4 K/mm3 (0.0-0.4); Eosinophils % 2.5 % (0.1-12.0); Hematocrit 55.2 % (42.0-52.0); Hemoglobin 17.5 g/dL (14.1-18.0); Lymphocytes # 3.5 K/mm3 (0.7-4.5); Lymphocytes % 22.8 % (10-50); Mean Corpuscular HGB Conc 31.7 g/dL (31.8-35.4); Mean Corpuscular Hemoglobin 30.8 pg (27.0-31.2); Mean Corpuscular Volume 97.1 fl (80-94); Mean Platelet Volume 8.5 fl (7.4-10.4); Monocytes # 1.2 K/mm3 (0.1-1.0); Monocytes % 7.7 % (1.7-9.3); Neutrophils % 65.7 % (37.0-80.0); Platelet Count 458 K/mm3 (142-424); Red Blood Count 5.69 M/mm3 (4.60-6.20); Red Cell Distribution Width 13.9 % (11.5-17.5); White Blood Count 15.2 K/mm3 (4.8-10.8)
[2020-06-25 10:14] LABS: MANUAL DIFFERENTIAL MANUAL DIFFERENTIAL (MANUAL DIFF)
[2020-06-25 10:37] LABS: Chloride 105 mmol/L (98-107); Potassium 5.1 mmoL/L (3.5-5.1); Sodium 137 mmol/L (136-145)
[2020-06-25 10:40] LABS: Alanine Aminotransferase 21 U/L (12-78); Albumin Level 4.6 g/dl (3.5-5.0); Alkaline Phosphatase 83 U/L (38-126); Anion Gap 15.1 mEq/L (5-15); Aspartate Amino Transferase 21 U/L (17-59); Bilirubin,Total 0.6 mg/dl (0.2-1.3); Blood Urea Nitrogen 16 mg/dl (9-20); Calcium 9.5 mg/dl (8.4-10.2); Carbon Dioxide 22 mmol/L (22.0-30.0); Estimated Glomerular Filt Rate 90 ml/min (>60); GFR (African American) 109 ML/MIN (>60); Globulin 2.3 g/dL (1.3-3.2); Glucose 178 mg/dl (74-100); Total Protein,Serum 6.9 g/dl (6.3-8.2)
[2020-06-25 11:38] LABS: Lymphocytes % 28 % (10-50); Monocytes % 2 % (2-9); Neutrophils % 70 % (42-76); Total Cells Counted 100
[2020-06-25 11:39] LABS: Coronavirus 19 IgG Antibody Negative (Negative); Coronavirus 19 IgM Antibody Negative (Negative); Platelet Estimate Normal; RBC Morphology Normal
== END ==
PROVIDERS: Visit Provider Otolaryngology
DX: Z01.818 Encounter for other preprocedural examination (principal); Z20.822 Contact with and (suspected) exposure to COVID-19; J33.9 Nasal polyp, unspecified
CPT/HCPCS: 36415; 80053; 85007; 85025; 86328; 93005

== ENCOUNTER 2020-06-26 07:51 | Day surgery (SDC) | payer OTHER, SELFPAY ==
[2020-06-23 10:18] VITALS: BMI 33.0
[2020-06-26] VITALS (11 sets, daily range): BP systolic 123–161; BP diastolic 74–95; PULSE 70–88; RESP 12–18; TEMP 36–36.7; O2SAT 89–96
--- NOTE | 2020-06-26 10:22 | P.PN_ITS ---
[facility] Anesthesia Checklist - Structural Data Admitted From: Home Planned Operative Procedure/s: excision nasal polyp Consent for Planned Operative Procedure(s) Verified: Yes - Additional verifications Anesthesia Reactions: No Hx Blood Transfusions: No Blood Transfusion Reaction: No - Airway Assessment C-Spine Mobility Assessed: Yes TMJ Mobility Assessed: Yes Dentition: Good Dentition - Neurological Assessment Level of Consciousness: Awake, Alert, Appropriate - Anesthesia Plan Anesthesia Risk discussed: Yes Anesthesia Plan: Verified ASA Class: II Anesthesia Type: General [facility] History I have reviewed the patient's past medical history: Yes Medical History: Reports:: Anxiety, Hyperlipidemia, Hypertension, Seizures Denies:: Cancer, Diabetes Mellitus Type 1, Diabetes Mellitus Type 2, Internal Pacemaker, MRSA *Have you ever received a pneumonia vaccine?: No *Have you received a flu vaccine this season?: No Other Medical History: Reports: Other. Denies: Blood Transfusion Reaction Anesthesia experience/problems:: none Laterality Cases: Right: Arthroscopy Hip Other Surgeries: Yes: No Previous Surgery, Colonoscopy, Hernia Repair, Splenectomy. No: Pacemaker Amputation: No Fractures: Yes - *Social History Last grade of school completed: Some college Smoking Status: Current every day smoker Tobacco Type: cigarettes # Packs/Day (cigarettes): 1 Alcohol Intake: current Alcohol Intake Frequency:: holidays/special occasions only Substance Use Type: denies use *Occupational Status:: unemployed Housing: house Household Members: spouse *Travel in the last 8 weeks: None - Psychiatric History Pschychiatric History:: Reports:: Anxiety Family Hx:: No significant family history
--- NOTE | 2020-06-26 10:32 | SUR.OPER ---
francis delivered to pathologist at 1025
--- NOTE | 2020-06-26 10:33 | SUR.OPER ---
pathology called report to room [address] nguyen
--- NOTE | 2020-06-26 10:51 | HMH.ANESI ---
[facility] Anesthesia Record Part I Intake, IV Amount: 1,200 Estimated blood loss (mL): 0 Urine output (mL): 0 Blood Pressure: 123/83 SaO2: 92 Pulse Rate: 88 Respiratory Rate: 12 Temperature: 97.8 F Patient is:: Awake, Stable Stable to PACU at:: 10:50
--- NOTE | 2020-06-26 11:08 | P.OP_ITS ---
Date of procedure: 06/26/20 Pre-op Diagnosis:: 1. 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 Recurrent left-sided epistaxis Post-op Diagnosis:: Same Procedure performed:: 1. Removal of papilloma left nasal fossa involving left septum and inferior turbinate Surgeon:: Rober Morales MD LEAD PORTFOLIO MANAGER:: Carl Avilez Anesthesia: GETA Estimated blood loss (mL): 10 Operative findings:: Same Operative note:: With patient under general anesthesia, maintained with an oral endotracheal tube, the face was prepped and draped. The eyes were protected with Steri- Strips, the nose was decongested with topical cocaine and 3 cc of 2% lidocaine with epi were injected into the left side of the nasal septum as well as the left inferior turbinate. There was papillomatous tissue involving the medial aspect of the left side of the nasal septum as well as the medial aspect of the left superior turbinate, using the cupped forceps the papillomatous tissue was removed from both of those sites and submitted together. Bleeding was less than 10 cc and stopped with suction cautery. Surgicel snow was placed over the septum as well as over the turbinate and all the bleeding was stopped at the time the patient was sent to recovery. Frozen section analysis of the tissue confirmed the clinical finding of a papilloma but the pathologist was not certain whether it was the inverting type or the regular type of papilloma and that was deferred to the final sections. The patient tolerated the procedure well and was sent to recovery in good general condition. Condition: stable Disposition: PACU Complications:: none
--- NOTE | 2020-06-26 13:04 | HMH.ANESII ---
[facility] Anesthesia Record Part II Discharge Time: 11:20 Destination: floor PACU nurse assessment reviewed?: Yes Patient Condition:: Good Anesthesia Complications:: None Swallowing reflex intact?: Yes Cyanosis?: No Blood Pressure: 151/91 Pulse Rate: 79 Temperature: 96.8 F Mental Status: Alert & Oriented Pain level:: 0 Nausea and/or vomitting:: None Intake, IV Amount: 1,500
== END 2020-06-26 11:55 | disposition home or self-care (01) ==
LOC: OR 07:53
PROVIDERS: PCP Emergency Medicine; Visit Provider Otolaryngology
PROC: (CPT 30117; principal; 2020-06-26 10:30)
DX: R04.0 Epistaxis (principal); D14.0 Benign neoplasm of middle ear, nasal cavity and accessory sinuses; F41.9 Anxiety disorder, unspecified; E78.5 Hyperlipidemia, unspecified; I10 Essential (primary) hypertension; R56.9 Unspecified convulsions; Z87.39 Personal history of other diseases of the musculoskeletal system and connective tissue; Z72.0 Tobacco use; G47.33 Obstructive sleep apnea (adult) (pediatric); Z79.899 Other long term (current) drug therapy
CPT/HCPCS: 30117; 96374; 96375; J2405

== ENCOUNTER → 2020-06-30 15:31 | Outpatient (CLI) | payer OTHER, SELFPAY ==
[2020-06-30 16:10] LABS: Amphetamine/Metha Screen,Urine Negative ng/ml (<1000)
[2020-06-30 16:11] LABS: Barbiturates Screen,Urine Negative ng/ml (<200)
[2020-06-30 16:12] LABS: Benzodiazepines Screen,Urine Negative ng/ml (<200)
[2020-06-30 16:13] LABS: Cannabinoid Screen,Urine Negative ng/ml (<50)
[2020-06-30 16:14] LABS: Cocaine Screen,Urine Negative ng/ml (<300); Methadone Screen,Urine Negative ng/ml (<300)
[2020-06-30 16:15] LABS: Opiate Screen,Urine Positive ng/ml (<300)
[2020-06-30 16:16] LABS: Phencyclidine Screen,Urine Negative ng/ml (<25)
== END ==
PROVIDERS: Visit Provider Emergency Medicine
DX: Z79.899 Other long term (current) drug therapy (principal)
CPT/HCPCS: 80305

== ENCOUNTER 2020-07-14 10:50 | Outpatient (CLI) | payer OTHER, SELFPAY ==
[2020-07-14 10:52] VITALS: BMI 32.7
[2020-07-14 11:10] LABS: Hematocrit 51.5 % (42.0-52.0); Hemoglobin 17.3 g/dL (14.1-18.0)
[2020-07-14 12:00] VITALS: BP 120/72; PULSE 79; RESP 18; TEMP 36.6; O2SAT 97
[2020-07-14 12:40] VITALS: BP 123/72; PULSE 78; RESP 18; TEMP 36.6; O2SAT 97
== END 2020-07-14 12:45 | disposition home or self-care (01) ==
LOC: INF 10:50
PROVIDERS: Visit Provider Urology
DX: R71.8 Other abnormality of red blood cells (principal)
CPT/HCPCS: 36415; 85014; 85018; 99195

== ENCOUNTER → 2020-07-28 11:24 | Outpatient (POV) | payer OTHER, SELFPAY ==
[2020-07-28 11:32] VITALS: BP 128/78; PULSE 103; RESP 18; O2SAT 98; BMI 31.9
--- NOTE | 2020-07-28 13:03 | P.CONS_ITS ---
[facility] Pain Management SOAP Note Subjective:: Patient is a pleasant 49-year-old white male who presents today for follow-up. Patient had a SI joint injection back in February and is done extremely well until recently. He is now having bilateral SI joint pain. Patient has a positive Pascual test SI joint compression test Kirstie's test and distraction test bilaterally. Patient is on Butler from his primary care physician. Primary care physician would like us to potentially take this over. This is per the patient. I discussed with the patient that he would have to talk to Dr. Kulkarni about this at his next visit. Patient is agreeable he rates his pain a 5 out of 10 today. Patient gets up to 80% relief with his injections up to 3 months. ROS General: no recent weight change, no fever, no sleep disturbances Respiratory: no cough, no shortness of air, no recurring pulmonary infections Cardiovascular/Peripheral Vascular: No chest pain, No palpitations, no edema, no shortness of breath. Gastrointestinal: no new onset incontinence, normal bowel movements reported Genitourinary: no new onset incontinence Musculoskeletal: SI joint pain Psychiatric: normal mood/ affect Neurological: [denies new onset weakness in extremities], [denies new onset balance issues] Objective:: Physical Exam General: Alert and oriented x3, no acute distress, pleasant and cooperative, [on room air] Lungs: Resps E/U, Symmetrical chest expansion, Eyes: PERRL Musculoskeletal: Flexion and extension of lumbar spine somewhat guarded secondary to pain, deep tendon reflexes normal, strength in upper and lower extremities [5/5], antalgic gait noted Neurological: speech clear, surgery nurse equal, no gross sensory deficits Assessment:: Sacroiliitis Plan:: We will schedule the patient for bilateral SI joint injections. We will allow for Dr. Kulkarni to talk with the patient during his injection about taking over his Butler. I will follow-up with him after his injection reassess his symptoms at that time he has been instructed to call the office if he has any issues prior to his next appointment. Dr. Payne has reviewed this note and agrees with this plan of care. This note was dictated using voice recognition software and may contain errors or omissions [facility] History I have reviewed the patient's past medical history: Yes Medical History: Reports:: Anxiety, Hyperlipidemia, Hypertension, Seizures Denies:: Cancer, Diabetes Mellitus Type 1, Diabetes Mellitus Type 2, Internal Pacemaker, MRSA *Have you ever received a pneumonia vaccine?: Yes *Have you received a flu vaccine this season?: Yes Other Medical History: Reports: Sinus Problems, Other. Denies: Blood Transfusion Reaction Laterality Cases: Right: Arthroscopy Hip Other Surgeries: Yes: No Previous Surgery, Colonoscopy, Hernia Repair (ventral hernia repair), Sinus Surgery, Splenectomy. No: Pacemaker Amputation: No Fractures: Yes - *Social History Smoking Status: Current every day smoker Tobacco Type: cigarettes # Packs/Day (cigarettes): 1 Alcohol Intake: current Alcohol Intake Frequency:: a few times a week Substance Use Type: denies use *Occupational Status:: other Housing: house Household Members: spouse *Travel in the last 8 weeks: None - Psychiatric History Pschychiatric History:: Reports:: Anxiety Family Hx:: No significant family history
== END ==
PROVIDERS: Visit Provider Clinical Nurse Specialist Family Health
DX: M46.1 Sacroiliitis, not elsewhere classified (principal)
CPT/HCPCS: 99212; G0463

== ENCOUNTER 2020-08-15 14:49 | Day surgery (SDC) | payer OTHER, SELFPAY ==
[2020-08-15 15:18] VITALS: BP 157/99; PULSE 101; RESP 20; TEMP 36.4; O2SAT 96; BMI 33.0
--- NOTE | 2020-08-15 15:35 | HMH.PMPROC ---
- Procedure Date: 08/15/20 Time: 15:35 Anesthesiologist:: Jona Payne MD Complications:: None Pre-procedure Diagnosis:: Sacroiliitis Post-procedure Diagnosis:: Same Indications for Procedure:: This patient is a pleasant 49-year-old white male who we are treating for bilateral hip pain. He is tender over both SI joints. He has a positive Kirstie's test bilaterally. He is positive Pascual test bilaterally. He has positive SI joint compression test bilaterally. He has a positive distraction test bilaterally. We will do bilateral SI joint injections today to see if we can get him significant relief for several months again of his SI joint pain. Procedure Details:: B/L SI joint injection under fluoroscopy Informed consent was obtained and the risks and benefits of the procedure was explained to the patient. The patient was taken to the procedure room and placed prone on the procedure table. The patient was prepped using ChloraPrep. The skin and subcutaneous tissues overlying the SI joints were anesthetized using lidocaine. I placed a 22-gauge needle first in the left SI joint and second in the right SI joint. Needle placement was confirmed with dye. After this we injected 5 mL bupivacaine 0.25% and Depo-Medrol 40 mg into each SI joint. Patient tolerated the procedure well with no complication. Plan and Disposition:: We will follow-up with him in 2 weeks. Will reevaluate his symptoms at that time.
[2020-08-15 15:41] VITALS: BP 133/86; BP 139/79; PULSE 86; RESP 18; O2SAT 98
[2020-08-15 15:46] VITALS: BP 155/52; PULSE 97; RESP 20; O2SAT 96
== END 2020-08-15 15:47 | disposition home or self-care (01) ==
LOC: SC.PAINP 14:50
PROVIDERS: PCP Emergency Medicine; Visit Provider Anesthesiology
DX: M46.1 Sacroiliitis, not elsewhere classified (principal); F41.9 Anxiety disorder, unspecified; E78.5 Hyperlipidemia, unspecified; I10 Essential (primary) hypertension; M71.9 Bursopathy, unspecified; R56.9 Unspecified convulsions; Z72.0 Tobacco use
CPT/HCPCS: 27096; G0260; J1030; Q9966

== ENCOUNTER → 2020-08-18 18:01 | Outpatient (CLI) | payer OTHER, SELFPAY ==
[2020-08-18 18:59] LABS: Barbiturates Screen,Urine Negative ng/ml (<200); Benzodiazepines Screen,Urine Negative ng/ml (<200)
[2020-08-18 19:00] LABS: Amphetamine/Metha Screen,Urine Negative ng/ml (<1000)
[2020-08-18 19:01] LABS: Cannabinoid Screen,Urine Negative ng/ml (<50)
[2020-08-18 19:02] LABS: Cocaine Screen,Urine Negative ng/ml (<300); Methadone Screen,Urine Negative ng/ml (<300)
[2020-08-18 19:03] LABS: Opiate Screen,Urine Positive ng/ml (<300)
[2020-08-18 19:04] LABS: Phencyclidine Screen,Urine Negative ng/ml (<25)
== END ==
PROVIDERS: Visit Provider Emergency Medicine
DX: M70.62 Trochanteric bursitis, left hip (principal)
CPT/HCPCS: 80305

== ENCOUNTER → 2020-09-15 10:28 | Outpatient (POV) | payer OTHER, SELFPAY ==
[2020-09-15 10:44] VITALS: BP 177/92; PULSE 109; RESP 18; O2SAT 96; BMI 29.8
--- NOTE | 2020-09-15 12:06 | HMH.PAINSOAP ---
[facility] Pain Management SOAP Note Subjective:: Patient is a 49-year-old white male who presents today for follow-up after bilateral SI joint injections. Patient is being treated for chronic sacroiliitis. He says that he is having pain with sitting. Patient's pain lessens when he is walking. He has occasional leg pain with prolonged walking. He has seen a chiropractor twice with no significant relief. Bending forward does not worsen his pain. He is tender to palpation to bilateral SI joints. He did see Dr. Armenta who performed a left bursa injection, however, he says that after the second injection his pain was worse. He does report to have gotten 60 to 70% relief with his last injections on 08/15/[address] Kulkarni to bilateral SIs. He would like to repeat the injections. He does continue with home stretching. We did discuss trying Duexis. He would like to try samples of the medication today to see if this gives him relief. If he does get relief with Duexis, we will order the medication for him. Review of Systems General: No recent weight changes, no fever, no sleep disturbances Respiratory: No cough, no shortness of air, no recurring pulmonary infections Cardiovascular/peripheral vascular: No chest pain, no palpitations, no edema, no shortness of breath Gastrointestinal: No new onset incontinence, normal bowel movements reported Genitourinary: No new onset incontinence Musculoskeletal: Low back pain worse with sitting, improves with standing, intermittently radiating into bilateral lower extremities Psychiatric: Normal mood/affect Neurological: [Denies weakness in extremities], [denies balance issues] Objective:: Physical exam General: Alert and oriented x3, no acute distress, pleasant and cooperative, [on room air] Lungs: Respirations even and unlabored, symmetrical chest expansion Eyes: PERRL Musculoskeletal: Flexion and extension of [] lumbar spine somewhat guarded secondary to pain, deep tendon reflexes normal, strength in upper and lower extremities [5/5], [abnormal gait noted], positive Kirstie's test, positive distraction test, positive compression test Neurological: 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 Patient was given Duexis samples today to see if this relieves any of his pain. He did get 60 to 70% relief with the previous injections for approximately 2 weeks. We will see him back in the clinic after his injections for reevaluation of his symptoms. He will continue with home stretching and ice and heat therapies. Risks and benefits of the procedure have been explained to the patient. Patient would like to proceed with the procedure. Possible side effects of corticosteroids have been discussed with the patient. Patient has been instructed to contact the clinic with any concerns before the next appointment. Dr. Payne has reviewed this note and agrees with this plan of care. This note was dictated using voice recognition software and make contain errors or omissions. [facility] History I have reviewed the patient's past medical history: Yes Medical History: Reports:: Anxiety, Hyperlipidemia, Hypertension Denies:: Cancer, Diabetes Mellitus Type 1, Diabetes Mellitus Type 2, Internal Pacemaker, MRSA, Seizures *Have you ever received a pneumonia vaccine?: No *Have you received a flu vaccine this season?: Yes Other Medical History: Reports: Sinus Problems, Other. Denies: Blood Transfusion Reaction Laterality Cases: Right: Arthroscopy Hip Other Surgeries: Yes: No Previous Surgery, Colonoscopy, Hernia Repair, Sinus Surgery, Splenectomy, Other. No: Pacemaker Amputation: No Fractures: Yes - *Social History Smoking Status: Current every day smoker Tobacco Type: cigarettes # Packs/Day (cigarettes): 1 Alcohol Intake: never Alcohol Intake Frequency:: a few times a week Substance Use Type: denies use *
== END ==
PROVIDERS: PCP Emergency Medicine; Visit Provider Clinical Nurse Specialist Family Health
DX: M46.1 Sacroiliitis, not elsewhere classified (principal)
CPT/HCPCS: 99212; G0463

== ENCOUNTER 2020-10-09 09:06 | Emergency (ER) | payer OTHER, SELFPAY ==
[2020-10-09 09:14] VITALS: BP 152/95; PULSE 111; RESP 16; TEMP 36.8; O2SAT 98; BMI 31.5
--- NOTE | 2020-10-09 09:39 | US_ITS ---
PROCEDURE: US ABDOMEN LIMITED CLINICAL INDICATION: RUQ pain COMPARISON: CT CT ABDOMEN PELVIS W CON from 01/28/2020 FINDINGS: PANCREAS: No obvious pancreatic abnormality. There is poor visualization of the pancreas which could be better evaluated with CT if clinically warranted. LIVER: No focal liver lesions demonstrated. Homogeneous echogenicity. No intrahepatic biliary ductal dilatation evident. There is appropriate direction of blood flow within a non dilated portal vein RIGHT KIDNEY: Unremarkable. Normal size and echogenicity. No hydronephrosis GALLBLADDER: No gallstones, gallbladder wall thickening, pericholecystic fluid, or biliary dilatation. IMPRESSION: Unremarkable limited abdominal ultrasound as detailed above disc Dictated by: Kumar Johnston MD 10/09/2020 10:17 Kumar Johnston MD in [place] 10/09/2020 10:17
--- NOTE | 2020-10-09 09:39 | HMH.EDABDPAI ---
ED Disposition Clinical Impression: Biliary colic Disposition: Home, Self-Care Condition on Discharge: Good Prescriptions: Hydrocod/Acet 5/325 mg [[place] 5/325mg tablet] 1 tab PO Q6HP PRN #12 tab PRN Reason: Mild Pain Transmission Status: Sent to [facility] Referrals: Anatoliy Coyne MD [Primary Care Provider] - - Critical Care Critical Care Time: No Attestation: On 10/09/20, the high probability of a clinically significant, sudden or life threatening deterioration of the following system(s) required my full and direct attention, intervention and personal management. The time I documented below is in addition to time spent performing reported procedures but includes the following listed in this critical care notation. Medical Decision Making - Medical Records Medical records reviewed: Yes: I reviewed the patient's medical records. - Jose Inquiry Pt receiving controlled substance: No Vital Signs: 10/09/20 09:14 10/09/20 10:33 10/09/20 12:10 Temperature 98.2 F Temperature Source Oral Pulse Rate 81 78 Pulse Rate [Radial] 111 H Respiratory Rate 16 16 16 Blood Pressure 160/94 H 151/87 H Blood Pressure [Right Arm] 152/95 H Blood Pressure Mean 120 Blood Pressure Mean [Right Arm] 114 Blood Pressure Position Sitting Blood Pressure Position [Right Arm] Sitting 02 Sat by Pulse Oximetry 98 100 Oxygen Delivery Method Room Air - Lab Data Lab Results 10/09/20 09:20: Urine Color Yellow, Urine Appearance Clear, Urine pH 6.0, Ur Specific [place] <= 1.005, Urine Protein Negative, Urine Glucose (UA) Negative, Urine Ketones Negative, Urine Blood Negative, Urine Nitrate Negative, Urine Bilirubin Negative, Urine Urobilinogen 0.2, Ur Leukocyte Esterase Negative, Urine RBC None, Urine WBC 3-5, Ur Squamous Epith Cells 3-5, Urine Bacteria None 10/09/20 09:34: WBC 11.4 H, RBC 5.55, Hgb 17.6, Hct 52.1 H, MCV 93.8, MCH 31.6 H, MCHC 33.7, RDW 14.2, Plt Count 476 H, MPV 8.0, Neut % (Auto) 59.9, Lymph % (Auto) 26.6, [place] % (Auto) 8.8, Eos % (Auto) 3.0, Baso % (Auto) 1.7, Neut # (Auto) 6.8, Lymph # (Auto) 3.0, [place] # (Auto) 1.0, Eos # (Auto) 0.3, Baso # (Auto) 0.2 10/09/20 09:34: Sodium 138, Potassium 5.3 H, Chloride 105, Carbon Dioxide 25, Anion Gap 13.3, BUN 13, Creatinine 0.80, Estimated Creat Clear 159, Estimated GFR 103, Est GFR ( Amer) 125, Glucose 112 H, Calcium 9.0, Total Bilirubin 0.6, AST 32, ALT 23, Alkaline Phosphatase 84, Total Protein 7.6, Albumin 4.8, Globulin 2.8, Albumin/Globulin Ratio 1.7, Lipase 31 Result diagrams: 10/09/20 09:34 10/09/20 09:34 Orders (Tests/Meds): ED MEDICATIONS Discontinued Medications Generic Name Dose Route Start Last Admin Trade Name Freq PRN Reason Stop Dose Admin Sodium Chloride 1,000 mls @ 999 mls/hr 10/09/20 09:30 10/09/20 09:43 Sod Chlor 0.9% 1000ml Bag IV 10/09/20 10:30 999 mls/hr .Q1H1M ОЛЬГА Administration Sodium Chloride 1,000 mls @ 999 mls/hr 10/09/20 09:45 Sod Chlor 0.9% 1000ml Bag IV 10/09/20 10:45 .Q1H1M ОЛЬГА Ketorolac Tromethamine 15 mg 10/09/20 09:56 10/09/20 09:58 Ketorolac 30mg/Ml Vial IV 10/09/20 09:57 15 mg ONCE ONE Administration Morphine Sulfate 2 mg 10/09/20 10:39 10/09/20 10:40 Morphine 2mg/Ml Syringe IV 10/09/20 10:40 2 mg ONCE ONE Administration Morphine Sulfate 4 mg 10/09/20 12:07 10/09/20 12:08 Morphine 4mg/Ml Syringe IV 10/09/20 12:08 4 mg ONCE ONE Administration Ondansetron HCl 4 mg 10/09/20 09:29 10/09/20 09:43 Ondansetron 4mg/2ml Vial IV 10/09/20 09:30 4 mg ONCE ONE Administration ORDERS Category Date Time Status US RUQ [US abdomen limited] Stat Exams 10/09/20 09:39 Taken EKG Request [ECG Request by /Roseanne] Stat Y 10/09/20 09:14 Ordered Medical Decision Narrative: 49-year-old male presents with right-sided pain. He is in no acute distress nontoxic-appearing does not have acute abdomen on exam. I am concerned for possible
[2020-10-09 09:47] LABS: Microscopic, Urine URINE MICROSCOPIC (MICROSCOPIC)
[2020-10-09 09:54] LABS: Basophils # 0.2 K/mm3 (0-0.2); Basophils % 1.7 % (0.1-2.0); Eosinophils # 0.3 K/mm3 (0.0-0.4); Hematocrit 52.1 % (42.0-52.0); Hemoglobin 17.6 g/dL (14.1-18.0); Lymphocytes % 26.6 % (10-50); Mean Corpuscular HGB Conc 33.7 g/dL (31.8-35.4); Mean Corpuscular Hemoglobin 31.6 pg (27.0-31.2); Mean Corpuscular Volume 93.8 fl (80-94); Monocytes % 8.8 % (1.7-9.3); Neutrophils # 6.8 K/mm3 (1.8-7.8); Neutrophils % 59.9 % (37.0-80.0); Platelet Count 476 K/mm3 (142-424); Red Blood Count 5.55 M/mm3 (4.60-6.20); Red Cell Distribution Width 14.2 % (11.5-17.5); White Blood Count 11.4 K/mm3 (4.8-10.8)
[2020-10-09 09:56] LABS: Appearance,Urine CLEAR (Clear); Bilirubin,Urine Negative (Negative); Blood, Urine Negative (Negative); Color,Urine YELLOW (Yellow); Glucose,Urine (UA) Negative (Negative); Ketones,Urine Negative (Negative); Leukocyte Esterase,Urine Negative (Negative); Nitrate,Urine Negative (Negative); Protein,Urine Negative (Negative); Specific Gravity, Urine <= 1.005 (1.005-1.030); Urobilinogen,Urine 0.2 EU/dl (0.2)
[2020-10-09 10:02] LABS: Chloride 105 mmol/L (98-107)
[2020-10-09 10:03] LABS: Potassium 5.3 mmoL/L (3.5-5.1); Sodium 138 mmol/L (136-145)
[2020-10-09 10:05] LABS: Alanine Aminotransferase 23 U/L (12-78); Albumin Level 4.8 g/dl (3.5-5.0); Alkaline Phosphatase 84 U/L (38-126); Anion Gap 13.3 mEq/L (5-15); Aspartate Amino Transferase 32 U/L (17-59); Bilirubin,Total 0.6 mg/dl (0.2-1.3); Blood Urea Nitrogen 13 mg/dl (9-20); Carbon Dioxide 25 mmol/L (22.0-30.0); Creatinine Clearance Estimated 159 mL/min (50-200); Estimated Glomerular Filt Rate 103 ml/min (>60); GFR (African American) 125 ML/MIN (>60); Globulin 2.8 g/dL (1.3-3.2); Lipase 31 U/L (23-300); Total Protein,Serum 7.6 g/dl (6.3-8.2)
[2020-10-09 10:06] LABS: Albumin/Globulin Ratio 1.7 (1.1-1.8); Glucose 112 mg/dl (74-100)
[2020-10-09 10:33] VITALS: BP 160/94; PULSE 81; RESP 16; O2SAT 100
--- NOTE | 2020-10-09 10:59 | CT_ITS ---
PROCEDURE: CT ABDOMEN PELVIS WO CON CLINICAL INDICATION: RUQ pain COMPARISON: CT CT ABDOMEN PELVIS W CON from 01/28/2020 TECHNIQUE: Axial images obtained with sagittal and coronal reformats. All CT scans at the facility use one or more dose reduction, viz: automated exposure control, ma/kV adjustment per patient size (including targeted exams where dose is matched to indication, i.e. head), or iterative reconstruction technique. FINDINGS: LOWER THORAX: Coronary artery calcification noted ABDOMEN & PELVIS: The liver, adrenal glands, and pancreas have an unremarkable appearance. A normal spleen is not identified. There appears to be multiple splenules present. There is given history of prior spleen surgery. This did have a similar appearance compared to the previous study. There is a small gastric diverticulum posteriorly. No radiopaque gallstones. There are nonobstructing right renal calculi measuring up to 3 mm in the lower pole on the right. Unremarkable appendix. The bowel gas pattern is nonspecific. No evidence of obstruction or free air. There is colonic diverticulosis. No evidence of diverticulitis. Prostate is slightly enlarged measuring 5 cm with central calcification. No pelvic mass. Postsurgical changes of the right hemipelvis with metallic artifact. There is a bone plate in the lateral aspect of the ischium and lower ilium with at least 1 of the screws extending beyond the medial cortex of the ileum. No acute bony finding. There is mild kyphosis at the thoracolumbar junction with degenerative changes. There is a small umbilical hernia containing fat slightly hyperdense. Previously noted supraumbilical hernia is no longer apparent IMPRESSION: No acute finding. Nonobstructing right renal calculi Colonic diverticulosis without diverticulitis. Dictated by: Kumar Johnston MD 10/09/2020 11:37 Kumar Johnston MD in [place] 10/09/2020 11:37
--- NOTE | 2020-10-09 11:07 | PC.NURSE ---
specialty transformer assembler called advising pt refusing IV contrast, Dr Brian notified, advised to continue scan non contrast.
[2020-10-09 12:06] VITALS: BP 151/87; PULSE 91; RESP 18; O2SAT 99
[2020-10-09 12:10] VITALS: BP 151/87; PULSE 78; RESP 16
--- NOTE | 2020-10-09 12:26 | PC.NURSE ---
Dr Sutherland speaking to Dr Brian
[2020-10-09 12:44] VITALS: BP 151/87; PULSE 91; RESP 18; TEMP 36.8; O2SAT 99
== END 2020-10-09 12:47 | disposition home or self-care (01) ==
PROVIDERS: Emergency Provider Emergency Medicine; PCP Emergency Medicine
DX: K80.50 Calculus of bile duct without cholangitis or cholecystitis without obstruction (principal); E87.5 Hyperkalemia; F41.9 Anxiety disorder, unspecified; I10 Essential (primary) hypertension; E78.5 Hyperlipidemia, unspecified; F17.210 Nicotine dependence, cigarettes, uncomplicated
CPT/HCPCS: 74176; 76705; 80053; 81001; 83690; 85025; 96365; 96375; 96376; 99284; J2405

== ENCOUNTER → 2020-10-09 14:12 | Outpatient (CLI) | payer OTHER, SELFPAY ==
--- NOTE | 2020-10-09 10:20 | ECG_ITS ---
APPROVED REPORT Exam: Resting ECG HR:84 bpm ECG Measurements Heart Rate 84 AXES VA 176 P 26 QRSd 96 QRS 64 QT 340 T 44 QTc 401 Conclusion Normal sinus rhythm Normal ECG Electronically signed by : Orion Erazo, 10/09/2020 21:31:14
== END ==
PROVIDERS: Visit Provider Surgery
DX: Z01.818 Encounter for other preprocedural examination (principal); K82.9 Disease of gallbladder, unspecified
CPT/HCPCS: 93005; U0003

== ENCOUNTER 2020-10-10 12:34 | Day surgery (SDC) | payer OTHER, SELFPAY ==
[2020-10-09 15:43] VITALS: BMI 31.1
[2020-10-10] VITALS (11 sets, daily range): BP systolic 140–163; BP diastolic 64–91; PULSE 73–102; RESP 14–18; TEMP 6.1–43; O2SAT 94–97
--- NOTE | 2020-10-10 15:01 | P.PN_ITS ---
[facility] Anesthesia Checklist - Patient Identification Patient Identification: Arm Band - Structural Data Admitted From: Home Planned Operative Procedure/s: Laparoscopic Cholecystectomy Consent for Planned Operative Procedure(s) Verified: Yes Verified Documents: Surgical Consent, History and Physical - NPO Status Verified Time NPO: 00:00 - Additional verifications Anesthesia Reactions: No Hx Blood Transfusions: No Blood Transfusion Reaction: No - Airway Assessment C-Spine Mobility Assessed: Yes (mp2) TMJ Mobility Assessed: Yes Dentition: Good Dentition - Neurological Assessment Level of Consciousness: Awake, Alert - Anesthesia Plan Anesthesia Risk discussed: Yes Anesthesia Plan: Verified ASA Class: II Anesthesia Type: General [facility] History I have reviewed the patient's past medical history: Yes Medical History: Reports:: Anxiety, Hyperlipidemia, Hypertension Denies:: Cancer, Diabetes Mellitus Type 1, Diabetes Mellitus Type 2, Internal Pacemaker, MRSA, Seizures *Have you ever received a pneumonia vaccine?: No *Have you received a flu vaccine this season?: No Other Medical History: Reports: Sinus Problems, Other. Denies: Blood Transfusion Reaction Anesthesia experience/problems:: nac Laterality Cases: Right: Arthroscopy Hip Other Surgeries: Yes: Colonoscopy, Hernia Repair, Sinus Surgery, Splenectomy, Other. No: Pacemaker Amputation: No Fractures: Yes - *Social History Last grade of school completed: Advanced degree Smoking Status: Current every day smoker Tobacco Type: cigarettes # Packs/Day (cigarettes): 35 Alcohol Intake: current Alcohol Intake Frequency:: a few times a week Substance Use Type: denies use *Occupational Status:: unemployed Housing: house Household Members: spouse *Travel in the last 8 weeks: None - Psychiatric History Pschychiatric History:: Reports:: Anxiety Family Hx:: No significant family history
--- NOTE | 2020-10-10 15:38 | HMH.OPNOTE ---
Date of procedure: 10/10/20 Pre-op Diagnosis:: Biliary colic Post-op Diagnosis:: Chronic cholecystitis Procedure performed:: Laparoscopic cholecystectomy Surgeon:: Min Sutherland MD [employer]ER[employer] ARRANGEMENT SPECIALIST:: Figueroa Rocha Anesthesia: GETHillary Estimated blood loss (mL): 15 Operative findings:: Significant pericholecystic fat stranding Infundibular thickening Multiple midline adhesions from prior laparotomy No obvious trocar injury to adhesed colon or small bowel Operative note:: After informed consent was obtained, the patient was taken to the operating room and placed in the supine position. General anesthesia was induced and the abdomen was prepped and draped in a sterile fashion. After infiltration with local anesthetic an infraumbilical incision was made. A Veress needle was placed in position. The abdomen was insufflated. A 5 mm optical trocar was placed in position. Under direct visualization, a 12 mm trocar was placed in the subxiphoid position and 2 additional 5 mm trocars were placed in the right upper quadrant. The gallbladder was elevated up and over the liver margin. The tissue around the cystic duct was carefully dissected. 3 clips were placed proximally and the duct was transected with harmonic purnima. Harmonic purnima were then utilized to dissect the gallbladder away from the liver margin with careful attention to the control of the cystic artery. The gallbladder was placed in a retrieval bag and removed through the subxiphoid trocar site. The right upper quadrant was thoroughly irrigated. No active bleeding or bile leak was noted. Fascia at the subxiphoid trocar site was not closed secondary to proximity of adhesed colon. The remaining trocars were removed. All wounds were irrigated and skin was closed with 4-0 Monocryl in a subcuticular fashion. Steri-Strips were applied. The patient's anesthetic agents were reversed and extubation was completed prior to transfer to recovery in stable condition. Condition: stable Disposition: PACU Specimens:: Gallbladder Complications:: No immediate
--- NOTE | 2020-10-10 15:44 | HMH.ANESI ---
[facility] Anesthesia Record Part I Intake, IV Amount: 1,400 Estimated blood loss (mL): 10 Urine output (mL): 0 Blood Pressure: 140/91 SaO2: 94 Pulse Rate: 97 Respiratory Rate: 16 Temperature: 99.5 F Patient is:: Drowsy, Stable Stable to PACU at:: 15:40
--- NOTE | 2020-10-10 17:28 | HMH.ANESII ---
[facility] Anesthesia Record Part II Discharge Time: 16:10 Destination: Surgical Day Care (OP Surgery) PACU nurse assessment reviewed?: Yes Patient Condition:: Good Anesthesia Complications:: None Swallowing reflex intact?: Yes Cyanosis?: No Blood Pressure: 163/89 Pulse Rate: 100 Temperature: 99 F Mental Status: Alert & Oriented Pain level:: 5 Nausea and/or vomitting:: None Intake, IV Amount: 0
== END 2020-10-10 16:41 | disposition home or self-care (01) ==
LOC: OR 12:34
PROVIDERS: PCP Emergency Medicine; Visit Provider Surgery
PROC: 0FT44ZZ Resection of Gallbladder, Percutaneous Endoscopic Approach (ICD-10-PCS; CPT 47562; principal; 2020-10-10 14:15)
DX: K81.1 Chronic cholecystitis; K82.8 Other specified diseases of gallbladder; E78.5 Hyperlipidemia, unspecified; I10 Essential (primary) hypertension; F41.9 Anxiety disorder, unspecified; Z72.0 Tobacco use; Z79.899 Other long term (current) drug therapy
CPT/HCPCS: 47562; 96374; J2405

== ENCOUNTER → 2020-10-17 11:29 | Outpatient (CLI) | payer OTHER, SELFPAY ==
[2020-10-17 12:10] LABS: Chloride 105 mmol/L (98-107); Sodium 141 mmol/L (136-145)
[2020-10-17 12:11] LABS: Potassium 5.8 mmoL/L (3.5-5.1)
[2020-10-17 12:13] LABS: Blood Urea Nitrogen 15 mg/dl (9-20); Estimated Glomerular Filt Rate 103 ml/min (>60); GFR (African American) 125 ML/MIN (>60)
[2020-10-17 12:14] LABS: Anion Gap 14.8 mEq/L (5-15); Calcium 10.2 mg/dl (8.4-10.2); Carbon Dioxide 27 mmol/L (22.0-30.0); Glucose 106 mg/dl (74-100)
[2020-10-17 18:35] LABS: Amphetamine/Metha Screen,Urine Negative ng/ml (<1000)
[2020-10-17 18:37] LABS: Barbiturates Screen,Urine Negative ng/ml (<200)
[2020-10-17 18:38] LABS: Benzodiazepines Screen,Urine Negative ng/ml (<200); Cannabinoid Screen,Urine Negative ng/ml (<50)
[2020-10-17 18:39] LABS: Cocaine Screen,Urine Negative ng/ml (<300)
[2020-10-17 18:40] LABS: Methadone Screen,Urine Negative ng/ml (<300); Opiate Screen,Urine Positive ng/ml (<300)
[2020-10-17 18:46] LABS: Phencyclidine Screen,Urine Negative ng/ml (<25)
[2020-10-19 11:33] LABS: Peripheral Smear Review Scanned Result
== END ==
LOC: SC.PAINP 11:59 → LAB 12:26 → SC.PAINP 12:27
PROVIDERS: PCP Emergency Medicine; Visit Provider Anesthesiology Pain Medicine
DX: D72.9 Disorder of white blood cells, unspecified (principal); E87.5 Hyperkalemia; M46.1 Sacroiliitis, not elsewhere classified
CPT/HCPCS: 36415; 80048; 80305

== ENCOUNTER 2020-11-21 10:52 | Day surgery (SDC) | payer OTHER, SELFPAY ==
[2020-11-21 11:09] VITALS: BP 115/82; PULSE 106; RESP 18; TEMP 36.4; O2SAT 98; BMI 31.1
[2020-11-21 11:40] VITALS: BP 151/99; PULSE 102; RESP 18; O2SAT 95
[2020-11-21 11:42] VITALS: BP 173/100; PULSE 101; RESP 18; O2SAT 95
--- NOTE | 2020-11-21 11:48 | HMH.PMPROC ---
- Procedure Date: 11/21/20 Time: 11:48 Anesthesiologist:: Luh Escobar MD Complications:: None Pre-procedure Diagnosis:: Bilateral sacroiliitis, bilateral hip pain, chronic low back pain Post-procedure Diagnosis:: Same Indications for Procedure:: This patient is a very pleasant 50-year-old white male who presents today with chronic low back pain and bilateral hip pain related to the above diagnosis. He has failed conservative treatment including oral pain medication and home stretching program for greater than 6 weeks. He has previously trialed chiropractic adjustments with no relief. He has previously undergone a left bursa injection with Dr. Armenta but unfortunately he states that after the second injection his pain worsened. He has previously undergone bilateral SI joint injections in our clinic and received 60 to 70% pain relief with the last injection which was performed on August 15, 2020. The plan for today is for the patient to undergo repeat bilateral SI joint injections under fluoroscopy. Procedure Details:: B/L SI joint injection under fluoroscopy Informed consent was obtained and the risks and benefits of the procedure was explained to the patient. The patient was taken to the procedure room and placed prone on the procedure table. The patient was prepped using ChloraPrep. The skin and subcutaneous tissues overlying the SI joints were anesthetized using lidocaine. I placed a 22-gauge needle first in the left SI joint and second in the right SI joint. Needle placement was confirmed with dye. After this we injected 5 mL bupivacaine 0.25% and Depo-Medrol 40 mg into each SI joint. Patient tolerated the procedure well with no complications. Plan and Disposition:: Follow-up with this patient in 2 weeks. Will reevaluate pain symptoms at that time.
[2020-11-21 11:54] VITALS: BP 120/94; PULSE 100; RESP 20; O2SAT 98
== END 2020-11-21 11:55 | disposition home or self-care (01) ==
LOC: SC.PAINP 10:54
PROVIDERS: PCP Emergency Medicine; Visit Provider Anesthesiology Pain Medicine
DX: M46.1 Sacroiliitis, not elsewhere classified (principal); M54.5 Low back pain; G89.29 Other chronic pain
CPT/HCPCS: 27096; G0260; J1030; Q9966

== ENCOUNTER → 2020-12-12 17:50 | Outpatient (CLI) | payer OTHER, SELFPAY ==
[2020-12-12 18:50] LABS: Amphetamine/Metha Screen,Urine Negative ng/ml (<1000)
[2020-12-12 18:51] LABS: Barbiturates Screen,Urine Negative ng/ml (<200)
[2020-12-12 18:52] LABS: Benzodiazepines Screen,Urine Negative ng/ml (<200); Cannabinoid Screen,Urine Negative ng/ml (<50)
[2020-12-12 18:53] LABS: Cocaine Screen,Urine Negative ng/ml (<300); Methadone Screen,Urine Negative ng/ml (<300)
[2020-12-12 18:54] LABS: Opiate Screen,Urine Positive ng/ml (<300)
[2020-12-12 18:55] LABS: Phencyclidine Screen,Urine Negative ng/ml (<25)
== END ==
PROVIDERS: Visit Provider Emergency Medicine
DX: Z79.899 Other long term (current) drug therapy (principal)
CPT/HCPCS: 80305

== ENCOUNTER → 2020-12-30 10:38 | Outpatient (CLI) | payer OTHER, SELFPAY ==
[2020-12-30 11:22] LABS: Basophils # 0.1 K/mm3 (0-0.2); Basophils % 1.5 % (0.1-2.0); Eosinophils # 0.2 K/mm3 (0.0-0.4); Eosinophils % 1.7 % (0.1-12.0); Hematocrit 56.7 % (42.0-52.0); Lymphocytes # 2.6 K/mm3 (0.7-4.5); Lymphocytes % 29.8 % (10-50); Mean Corpuscular HGB Conc 33.2 g/dL (31.8-35.4); Mean Corpuscular Volume 99.3 fl (80-94); Mean Platelet Volume 8.5 fl (7.4-10.4); Monocytes % 11.4 % (1.7-9.3); Neutrophils # 4.8 K/mm3 (1.8-7.8); Neutrophils % 55.5 % (37.0-80.0); Platelet Count 478 K/mm3 (142-424); Red Blood Count 5.71 M/mm3 (4.60-6.20); White Blood Count 8.7 K/mm3 (4.8-10.8)
[2020-12-30 12:16] LABS: Anion Gap 13.5 mEq/L (5-15); Blood Urea Nitrogen 9 mg/dl (9-20); Calcium 10.1 mg/dl (8.4-10.2); Carbon Dioxide 26 mmol/L (22.0-30.0); Chloride 102 mmol/L (98-107); Estimated Glomerular Filt Rate 143 ml/min (>60); GFR (African American) 173 ML/MIN (>60); Glucose 110 mg/dl (74-100); Potassium 5.5 mmoL/L (3.5-5.1); Sodium 136 mmol/L (136-145)
[2020-12-30 13:59] LABS: Hemoglobin 18.8 g/dL (14.1-18.0)
== END ==
PROVIDERS: Visit Provider Otolaryngology
DX: Z01.812 Encounter for preprocedural laboratory examination (principal); Z11.52 Encounter for screening for COVID-19; B35.1 Tinea unguium; L60.3 Nail dystrophy; L60.8 Other nail disorders; E66.9 Obesity, unspecified; Z68.30 Body mass index [BMI] 30.0-30.9, adult
CPT/HCPCS: 36415; 80048; 85025; C9803; U0003; U0005

== ENCOUNTER 2021-01-01 07:09 | Day surgery (SDC) | payer OTHER, SELFPAY ==
[2020-12-31 11:59] VITALS: BMI 30.7
[2021-01-01 08:08] VITALS: BP 144/85; PULSE 84; RESP 18; TEMP 36.6; O2SAT 96
--- NOTE | 2021-01-01 09:51 | HMH.ANESCL ---
[facility] Anesthesia Checklist - Structural Data Admitted From: Home Planned Operative Procedure/s: excision neoplasm back/chest Consent for Planned Operative Procedure(s) Verified: Yes - Additional verifications Anesthesia Reactions: No Hx Blood Transfusions: No Blood Transfusion Reaction: No - Airway Assessment C-Spine Mobility Assessed: Yes TMJ Mobility Assessed: Yes Dentition: Poor Dentition - Neurological Assessment Level of Consciousness: Awake, Alert, Appropriate - Anesthesia Plan Anesthesia Risk discussed: Yes Anesthesia Plan: Verified ASA Class: II Anesthesia Type: MAC [facility] History I have reviewed the patient's past medical history: Yes Medical History: Reports:: Anxiety, Hyperlipidemia, Hypertension Denies:: Cancer, Diabetes Mellitus Type 1, Diabetes Mellitus Type 2, Internal Pacemaker, MRSA, Seizures *Have you ever received a pneumonia vaccine?: No *Have you received a flu vaccine this season?: No Other Medical History: Reports: Sinus Problems, Other. Denies: Blood Transfusion Reaction Anesthesia experience/problems:: none Laterality Cases: Right: Arthroscopy Hip Other Surgeries: Yes: No Previous Surgery, Cholecystectomy, Colonoscopy, Hernia Repair, Sinus Surgery, Splenectomy, Other. No: Pacemaker Amputation: No Fractures: Yes - *Social History Last grade of school completed: Advanced degree Smoking Status: Former smoker Tobacco Type: cigarettes # Packs/Day (cigarettes): 1 #Yrs smoked (if former smoker): 10 Alcohol Intake: current Alcohol Intake Frequency:: a few times a week Substance Use Type: denies use *Occupational Status:: unemployed Housing: house Household Members: family *Travel in the last 8 weeks: None - Psychiatric History Pschychiatric History:: Reports:: Anxiety Family Hx:: No significant family history
[2021-01-01 10:06] VITALS: BP 146/79; PULSE 84; RESP 18; TEMP 36.3; O2SAT 95
[2021-01-01 10:21] VITALS: BP 144/81; PULSE 92; RESP 18; O2SAT 98
[2021-01-01 10:36] VITALS: BP 144/86; PULSE 94; RESP 18; O2SAT 98
--- NOTE | 2021-01-01 15:10 | HMH.OPNOTE ---
Date of procedure: 01/01/21 Pre-op Diagnosis:: 1. 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 Neoplasm right side of back overlying the scapula 2.4 cm Post-op Diagnosis:: same Procedure performed:: 1. Excision of neoplasm left upper chest 2.8 cm with tissue rearrangement geometric plastic repair 2. Excision of neoplasm right scapular area 2.4 cm with tissue rearrangement Z-plasty repair Surgeon:: Rober Morales MD SLICE CUTTING MACHINE OPERATOR:: Carl Avilez Anesthesia: MAC Estimated blood loss (mL): 5 Operative findings:: same Operative note:: The upper chest was prepped and draped the perilesional area was infiltrated with a total of 10 cc of 2% lidocaine containing epinephrine. The perilesional area was then marked out in the david out was incised and the lesion was excised completely and submitted. Anterior and posterior incisions were made and a tissue rearrangement geometric plastic repair was done with interrupted 4-0 nylon sutures dressings were applied. The patient was then repositioned and the lesion on the right scapula measured 2.4 cm 5 cc of 2% lidocaine with epi were injected into the perilesional area after prepping and draping and the david out was incised and the lesion was excised and submitted. A Z-plasty repair was done after anterior and posterior incisions and the patient obtained an excellent repair dressings were applied and the patient was sent to recovery in good general condition. Condition: stable Disposition: PACU Complications:: none
== END 2021-01-01 10:31 | disposition home or self-care (01) ==
LOC: OR 07:11
PROVIDERS: PCP Emergency Medicine; Visit Provider Otolaryngology
PROC: (CPT 14000; principal; 2021-01-01 08:45)
DX: L82.1 Other seborrheic keratosis (principal); F41.9 Anxiety disorder, unspecified; E78.5 Hyperlipidemia, unspecified; I10 Essential (primary) hypertension; Z87.891 Personal history of nicotine dependence; Z79.899 Other long term (current) drug therapy
CPT/HCPCS: 14000; 14020; 96374

== ENCOUNTER 2021-01-16 09:58 | Outpatient (CLI) | payer OTHER, SELFPAY ==
[2021-01-16 10:04] VITALS: BMI 30.1
== END 2021-01-16 11:00 | disposition home or self-care (01) ==
LOC: INF 09:59
PROVIDERS: PCP Emergency Medicine; Visit Provider Urology
DX: R79.1 Abnormal coagulation profile (principal)
CPT/HCPCS: 99195

== ENCOUNTER → 2021-01-30 17:37 | Outpatient (CLI) | payer OTHER, SELFPAY ==
[2021-01-30 19:02] LABS: Amphetamine/Metha Screen,Urine Negative ng/ml (<1000); Barbiturates Screen,Urine Negative ng/ml (<200)
[2021-01-30 19:04] LABS: Benzodiazepines Screen,Urine Negative ng/ml (<200)
[2021-01-30 19:05] LABS: Cannabinoid Screen,Urine Negative ng/ml (<50); Cocaine Screen,Urine Negative ng/ml (<300)
[2021-01-30 19:06] LABS: Methadone Screen,Urine Negative ng/ml (<300)
[2021-01-30 19:07] LABS: Opiate Screen,Urine Positive ng/ml (<300); Phencyclidine Screen,Urine Negative ng/ml (<25)
== END ==
PROVIDERS: Visit Provider Emergency Medicine
DX: Z79.899 Other long term (current) drug therapy (principal)
CPT/HCPCS: 80305

== ENCOUNTER 2021-02-06 12:04 | Outpatient (CLI) | payer OTHER, SELFPAY ==
[2021-02-06 12:08] VITALS: BMI 30.8
[2021-02-06 12:24] LABS: Hematocrit 52.2 % (42.0-52.0); Hemoglobin 17.3 g/dL (14.1-18.0)
[2021-02-06 13:18] VITALS: BP 153/73; PULSE 86; RESP 17; O2SAT 96
--- NOTE | 2021-02-06 13:18 | PC.NURSE ---
1245- 20g IV established to the right forearm by this nurse. Roe Moore from lab at chair side for therapeutic phlebotomy. 1248- vitals assessed as 163/92 83HR. phlebotomy started at this time. 1315- phlebotomy finished at this time. 250ml taken off by Roe Moore. pt tolerated well.
== END 2021-02-06 13:20 | disposition home or self-care (01) ==
LOC: INF 12:05
PROVIDERS: PCP Emergency Medicine; Visit Provider Urology
DX: R79.1 Abnormal coagulation profile (principal)
CPT/HCPCS: 85014; 85018; 99195

== ENCOUNTER → 2021-02-13 09:48 | Outpatient (CLI) | payer OTHER, SELFPAY | PROVIDERS: PCP Emergency Medicine; Visit Provider Otolaryngology | DX: G47.33 Obstructive sleep apnea (adult) (pediatric) (principal) ==

== ENCOUNTER → 2021-03-13 18:21 | Outpatient (CLI) | payer OTHER, SELFPAY ==
[2021-03-13 19:57] LABS: Amphetamine/Metha Screen,Urine Negative ng/ml (<1000); Barbiturates Screen,Urine Negative ng/ml (<200)
[2021-03-13 19:58] LABS: Benzodiazepines Screen,Urine Negative ng/ml (<200)
[2021-03-13 19:59] LABS: Cannabinoid Screen,Urine Negative ng/ml (<50); Cocaine Screen,Urine Negative ng/ml (<300)
[2021-03-13 20:00] LABS: Methadone Screen,Urine Negative ng/ml (<300)
[2021-03-13 20:01] LABS: Opiate Screen,Urine Positive ng/ml (<300); Phencyclidine Screen,Urine Negative ng/ml (<25)
== END ==
PROVIDERS: Visit Provider Emergency Medicine
DX: M25.552 Pain in left hip (principal); Z79.899 Other long term (current) drug therapy
CPT/HCPCS: 80305

== ENCOUNTER → 2021-05-08 16:00 | Outpatient (CLI) | payer OTHER, SELFPAY ==
[2021-05-08 19:04] LABS: Amphetamine/Metha Screen,Urine Negative ng/ml (<1000)
[2021-05-08 19:05] LABS: Barbiturates Screen,Urine Negative ng/ml (<200); Benzodiazepines Screen,Urine Negative ng/ml (<200)
[2021-05-08 19:06] LABS: Cannabinoid Screen,Urine Negative ng/ml (<50)
[2021-05-08 19:07] LABS: Cocaine Screen,Urine Negative ng/ml (<300)
[2021-05-08 19:08] LABS: Methadone Screen,Urine Negative ng/ml (<300)
[2021-05-08 19:09] LABS: Opiate Screen,Urine Positive ng/ml (<300)
[2021-05-08 19:10] LABS: Phencyclidine Screen,Urine Negative ng/ml (<25)
== END ==
PROVIDERS: Visit Provider Emergency Medicine
DX: Z79.899 Other long term (current) drug therapy (principal)
CPT/HCPCS: 80305

== ENCOUNTER → 2021-06-26 10:39 | Outpatient (CLI) | payer OTHER, SELFPAY ==
[2021-06-26 15:04] LABS: Amphetamine/Metha Screen,Urine Negative ng/ml (<1000)
[2021-06-26 15:05] LABS: Barbiturates Screen,Urine Negative ng/ml (<200); Benzodiazepines Screen,Urine Negative ng/ml (<200)
[2021-06-26 15:06] LABS: Cannabinoid Screen,Urine Negative ng/ml (<50)
[2021-06-26 15:07] LABS: Cocaine Screen,Urine Negative ng/ml (<300); Methadone Screen,Urine Negative ng/ml (<300)
[2021-06-26 15:08] LABS: Opiate Screen,Urine Positive ng/ml (<300); Phencyclidine Screen,Urine Negative ng/ml (<25)
== END ==
PROVIDERS: Visit Provider Emergency Medicine
DX: M70.62 Trochanteric bursitis, left hip (principal)
CPT/HCPCS: 80305

== ENCOUNTER → 2021-07-09 19:52 | Outpatient (CLI) | payer OTHER, SELFPAY | PROVIDERS: PCP Emergency Medicine; Visit Provider Otolaryngology | DX: G47.33 Obstructive sleep apnea (adult) (pediatric) (principal) | CPT/HCPCS: 95810 ==

== ENCOUNTER → 2021-07-16 12:09 | Outpatient (CLI) | payer OTHER, SELFPAY ==
[2021-07-16 12:14] LABS: MANUAL DIFFERENTIAL MANUAL DIFFERENTIAL (MANUAL DIFF)
[2021-07-16 13:06] LABS: Basophils # 0.1 K/mm3 (0-0.2); Basophils % 1.3 % (0.1-2.0); Eosinophils # 0.2 K/mm3 (0.0-0.4); Eosinophils % 2.7 % (0.1-12.0); Hematocrit 52.4 % (42.0-52.0); Hemoglobin 16.5 g/dL (14.1-18.0); Lymphocytes # 2.7 K/mm3 (0.7-4.5); Lymphocytes % 30.5 % (10-50); Mean Corpuscular HGB Conc 31.4 g/dL (31.8-35.4); Mean Corpuscular Hemoglobin 33.7 pg (27.0-31.2); Mean Platelet Volume 8.6 fl (7.4-10.4); Neutrophils # 4.8 K/mm3 (1.8-7.8); Neutrophils % 54.5 % (37.0-80.0); Platelet Count 462 K/mm3 (142-424); Red Cell Distribution Width 14.7 % (11.5-17.5); White Blood Count 8.8 K/mm3 (4.8-10.8)
[2021-07-16 13:09] LABS: Alanine Aminotransferase 46 U/L (12-78); Aspartate Amino Transferase 40 U/L (17-59); Bilirubin,Unconjugated 0.5 mg/dL (0.0-1.1)
[2021-07-16 13:10] LABS: Albumin Level 4.5 g/dl (3.5-5.0); Alkaline Phosphatase 78 U/L (38-126); Bilirubin,Direct 0.2 mg/dl (0.0-0.4); Bilirubin,Indirect 0.4 mg/dL (0.0-0.9); Bilirubin,Total 0.6 mg/dl (0.2-1.3); Total Protein,Serum 6.7 g/dl (6.3-8.2)
[2021-07-16 18:47] LABS: Eosinophils % 2 % (0-3); Lymphocytes % 35 % (10-50); Macrocytosis 2+; Monocytes % 11 % (2-9); Neutrophils % 50 % (42-76); Platelet Estimate Slight Increase; Stomatocytes 2+; Total Cells Counted 100
[2021-07-26 12:21] LABS: Testosterone, Total, LC/MS 426.2 ng/dL (264.0-916.0); Testosterone,Free 13.2 pg/mL (6.8-21.5)
== END ==
PROVIDERS: PCP Emergency Medicine; Visit Provider Urology
DX: E29.1 Testicular hypofunction (principal)
CPT/HCPCS: 36415; 80076; 84402; 84403; 85007; 85014; 85018; 85048; 85049

== ENCOUNTER → 2021-08-21 16:14 | Outpatient (CLI) | payer OTHER, SELFPAY ==
[2021-08-21 14:38] LABS: Amphetamine/Metha Screen,Urine Negative ng/ml (<1000); Barbiturates Screen,Urine Negative ng/ml (<200)
[2021-08-21 14:39] LABS: Benzodiazepines Screen,Urine Negative ng/ml (<200)
[2021-08-21 14:40] LABS: Cannabinoid Screen,Urine Negative ng/ml (<50); Cocaine Screen,Urine Negative ng/ml (<300)
[2021-08-21 14:41] LABS: Methadone Screen,Urine Negative ng/ml (<300); Opiate Screen,Urine Positive ng/ml (<300)
[2021-08-21 14:42] LABS: Phencyclidine Screen,Urine Negative ng/ml (<25)
== END ==
PROVIDERS: Visit Provider Emergency Medicine
DX: G89.29 Other chronic pain (principal)
CPT/HCPCS: 80305

== ENCOUNTER → 2021-08-28 14:19 | Outpatient (CLI) | payer OTHER, SELFPAY ==
--- NOTE | 2021-08-28 14:22 | CT_ITS ---
FINAL REPORT TECHNIQUE: Thin section axial CT images of the facial bones and sinuses were obtained without contrast. Coronal reformatted images were also obtained. This study was performed with techniques to keep radiation doses as low as reasonably achievable, (ALARA). Individualized dose reduction techniques using automated exposure control or adjustment of mA and/or kV according to the patient's size were employed. CLINICAL HISTORY: hx sinusitis COMPARISON: June 02, 2020 FINDINGS: CT SINUSES There is no evidence of mucosal thickening. No fluid levels are identified. The ostiomeatal units have an unremarkable appearance. There is leftward deviation of the cartilaginous nasal septum and mild rightward deviation of the bony nasal septum. No fracture or acute bony abnormality is identified. IMPRESSION: Overall stable exam. Reviewed, Interpreted and Dictated by Cristopher Lucas III, MD Transcribed by Florence Franco Authenticated and [facility]
== END ==
PROVIDERS: PCP Emergency Medicine; Visit Provider Otolaryngology
DX: K13.79 Other lesions of oral mucosa (principal); G47.33 Obstructive sleep apnea (adult) (pediatric)
CPT/HCPCS: 70486

== ENCOUNTER 2021-08-31 11:03 | Outpatient (CLI) | payer OTHER, SELFPAY ==
[2021-08-31 11:08] VITALS: BMI 28.7
--- NOTE | 2021-08-31 11:14 | PC.NURSE ---
1114-collected labs via peripheral stick; if hct >50 pt will need therapeutic phlebotomy
[2021-08-31 11:27] LABS: Hematocrit 50.5 % (42.0-52.0); Hemoglobin 16.4 g/dL (14.1-18.0)
[2021-08-31 11:52] VITALS: BP 148/79; PULSE 108; RESP 18
[2021-08-31 12:08] VITALS: BP 155/80; PULSE 107; RESP 18
== END 2021-08-31 12:08 | disposition home or self-care (01) ==
PROVIDERS: PCP Emergency Medicine; Visit Provider Urology
DX: R71.8 Other abnormality of red blood cells (principal)
CPT/HCPCS: 36415; 85014; 85018; 99195

== ENCOUNTER 2021-10-06 13:58 | Emergency (ER) | payer OTHER, SELFPAY ==
[2021-10-06 14:52] VITALS: PULSE 105; RESP 18; TEMP 36.8; O2SAT 96; BMI 28.4
--- NOTE | 2021-10-06 14:52 | HMH.EDUTC ---
[facility] [place] Disposition Clinical Impression: Viral syndrome, Exposure to COVID-19 virus Disposition: Home, Self-Care Condition on Discharge: Good Instructions: DI for COVID-19 (Suspected or Confirmed ), Preventing the Spread of Coronavirus Discharge Instructions Additional Instructions: Drink plenty of fluids. Take tylenol for pain or fever. Return if you begin to have difficulty breathing. Follow up with your regular doctor. GO TO THE ER FOR ANY WORSENING SYMPTOMS Quarantine until you know the results of your covid-19 test. If it is positive, the health department should call you and give you further instructions about your length of Quarantine and other things. Notify your school or workplace of your results and follow their instructions regarding return to work/school. Referrals: Anatoliy Coyne MD [Primary Care Provider] - Time of Disposition: 14:54 Medical Decision Making - Medical Records Medical records reviewed: No: I reviewed the patient's medical records. - Jose Inquiry Pt receiving controlled substance: No Vital Signs: 10/06/21 14:52 10/06/21 14:58 Temperature 98.2 F 98.2 F Temperature Source Oral Pulse Rate 105 H Pulse Rate [Left] 105 H Respiratory Rate 18 18 Blood Pressure 0/0 L 02 Sat by Pulse Oximetry 96 Orders (Tests/Meds): ORDERS Category Date Time Status Covid-19 Nasal PCR ([facility]) Routine Lab 10/06/21 15:13 Received [facility] [place] HPI - General Stated complaint: covid test Time Seen by Provider: 10/06/21 14:55 - History of Present Illness Provider Complaint: He is here after being exposed to covid-19 and starting to feel bad over the past 1 day. - Related Data Home Medications Medication Instructions Recorded Confirmed testosterone cypionate 200 mg/mL 200 mg IM QMONTH ml 12/10/19 09/23/21 intramuscular oil Nicotine [Nicotine Patch 1 patch TRANSDERMA DAILY 06/23/20 09/23/21 21mg/24hrs] Trazodone HCl 50 mg PO HS 10/09/20 09/23/21 Previous Rx's Medication Instructions Recorded sildenafil (pulm.hypertension) 20 20 mg PO DAILY PRN #40 tab 05/20/21 mg tablet lisinopril 40 mg tablet See Rx Instructions .ROUTE 07/06/21 .COMPLEX #30 tab gabapentin 600 mg tablet 600 mg PO TID #90 tab 08/21/21 hydrocodone 7.5 mg-acetaminophen 1 tab PO BID PRN #60 tab 08/21/21 325 mg tablet fexofenadine 180 mg tablet See Rx Instructions .ROUTE 09/11/21 .COMPLEX #90 tab azithromycin 250 mg tablet See Rx Instructions PO .COMPLEX #6 09/30/21 tab Allergies Allergy/AdvReac Type Severity Reaction Status Date / Time No Known Allergies Allergy Verified 09/23/21 13:08 [facility] History - Hepatitis A Screen Attestation statement:: This patient has been screened for Hepatitis A risk factors. I have reviewed the patient's past medical history: Yes Medical History: Reports:: Anxiety, Heart Murmur, Hyperlipidemia, Hypertension Denies:: Cancer, Diabetes Mellitus Type 1, Diabetes Mellitus Type 2, Internal Pacemaker, MRSA, Seizures Other Medical History: Reports: Sinus Problems, Other. Denies: Blood Transfusion Reaction Comment: MASOOD uses CPAP, obesity, pulmonary HTN, chronic pain, Testosterone Laterality Cases: Right: Arthroscopy Hip Other Surgeries: Yes: No Previous Surgery, Cholecystectomy, Colonoscopy, Hernia Repair, Sinus Surgery, Splenectomy, Other. No: Pacemaker Amputation: No Fractures: Yes - Social History Smoking Status: Current every day smoker Tobacco Type: cigarettes # Packs/Day (cigarettes): 1 #Yrs smoked (if former smoker): 10 Alcohol Intake: current Alcohol Intake Frequency:: 3 or more drinks per day Substance Use Type: denies use Occupational Status: unemployed Housing: house Household Members: spouse - Psychiatric History Pschychiatric History:: Reports:: Anxiety Family Hx:: No significant family history ROS Obtained: Yes All systems reviewed & no additional complaints - Constitutional Constitutional: Reports system reviewe
[2021-10-06 14:58] VITALS: BP 0/0; PULSE 105; RESP 18; TEMP 36.8
== END 2021-10-06 14:59 | disposition home or self-care (01) ==
PROVIDERS: Emergency Provider Nurse Practitioner Family; PCP Emergency Medicine
DX: U07.1 COVID-19 (principal); R01.1 Cardiac murmur, unspecified; I27.20 Pulmonary hypertension, unspecified; I10 Essential (primary) hypertension; E78.5 Hyperlipidemia, unspecified; G47.33 Obstructive sleep apnea (adult) (pediatric); G89.29 Other chronic pain; F41.9 Anxiety disorder, unspecified; F17.210 Nicotine dependence, cigarettes, uncomplicated; Z79.51 Long term (current) use of inhaled steroids; Z79.899 Other long term (current) drug therapy
CPT/HCPCS: 99212; C9803; G0463; U0003; U0005

== ENCOUNTER → 2021-11-09 09:13 | Outpatient (CLI) | payer OTHER, SELFPAY ==
[2021-11-09 09:22] LABS: MANUAL DIFFERENTIAL MANUAL DIFFERENTIAL (MANUAL DIFF)
[2021-11-09 09:41] LABS: Basophils # 0.2 K/mm3 (0-0.2); Basophils % 1.2 % (0.1-2.0); Eosinophils # 0.3 K/mm3 (0.0-0.4); Eosinophils % 2.7 % (0.1-12.0); Hematocrit 52.7 % (42.0-52.0); Hemoglobin 16.4 g/dL (14.1-18.0); Lymphocytes # 3.7 K/mm3 (0.7-4.5); Lymphocytes % 29.6 % (10-50); Mean Corpuscular HGB Conc 31.2 g/dL (31.8-35.4); Mean Corpuscular Hemoglobin 32.7 pg (27.0-31.2); Mean Corpuscular Volume 104.8 fl (80-94); Mean Platelet Volume 7.9 fl (7.4-10.4); Monocytes % 8.1 % (1.7-9.3); Neutrophils # 7.3 K/mm3 (1.8-7.8); Neutrophils % 58.4 % (37.0-80.0); Platelet Count 547 K/mm3 (142-424); Red Blood Count 5.03 M/mm3 (4.60-6.20); Red Cell Distribution Width 13.4 % (11.5-17.5); White Blood Count 12.6 K/mm3 (4.8-10.8)
[2021-11-09 10:12] LABS: Anion Gap 10.2 mEq/L (5-15); Blood Urea Nitrogen 11 mg/dl (9-20); Calcium 9.9 mg/dl (8.4-10.2); Carbon Dioxide 26 mmol/L (22.0-30.0); Chloride 105 mmol/L (98-107); Estimated Glomerular Filt Rate 103 ml/min (>60); GFR (African American) 124 ML/MIN (>60); Glucose 111 mg/dl (74-100); Potassium 5.2 mmoL/L (3.5-5.1); Sodium 136 mmol/L (136-145)
[2021-11-09 10:13] LABS: Hypochromasia 1+; Lymphocytes % 32 % (10-50); Macrocytosis 2+; Monocytes % 6 % (2-9); Neutrophils % 62 % (42-76); Platelet Estimate Moderate Increase; Total Cells Counted 100
[2021-11-09 10:14] LABS: Stomatocytes 1+
--- NOTE | 2021-11-09 11:17 | ECG_ITS ---
APPROVED REPORT Exam: Resting ECG HR:91 bpm ECG Measurements Heart Rate 91 AXES MD 190 P 18 QRSd 98 QRS 81 QT 321 T 24 QTc 370 Conclusion SINUS RHYTHM POSSIBLE RIGHT VENTRICULAR CONDUCTION DELAY [RSR (QR) IN V1/V2] BORDERLINE ECG UNCONFIRMED REPORT Electronically signed by : Orion Erazo MD 11/09/2021 14:19:04
== END ==
PROVIDERS: PCP Emergency Medicine; Visit Provider Student in an Organized Health Care Education/Training Program
DX: D14.0 Benign neoplasm of middle ear, nasal cavity and accessory sinuses (principal)
CPT/HCPCS: 36415; 80048; 85007; 85014; 85018; 85048; 85049; 93005

== ENCOUNTER 2021-11-11 07:17 | Day surgery (SDC) | payer OTHER, SELFPAY ==
[2021-11-09 09:58] VITALS: BMI 29.5
[2021-11-11] VITALS (11 sets, daily range): BP systolic 125–151; BP diastolic 68–94; PULSE 87–112; RESP 14–20; TEMP 36.3–37; O2SAT 94–98
--- NOTE | 2021-11-11 08:47 | P.PN_ITS ---
[facility] Anesthesia Checklist - Patient Identification Patient Identification: Arm Band, Verbal (Name & ) - Structural Data Admitted From: Home Planned Operative Procedure/s: Nasal endoscopy Consent for Planned Operative Procedure(s) Verified: Yes Verified Documents: Surgical Consent - NPO Status Verified Time NPO: 00:00 - Additional verifications Anesthesia Reactions: No Hx Blood Transfusions: No Blood Transfusion Reaction: No - Airway Assessment C-Spine Mobility Assessed: Yes TMJ Mobility Assessed: Yes Dentition: Good Dentition - Neurological Assessment Level of Consciousness: Awake, Alert, Appropriate - Anesthesia Plan Anesthesia Risk discussed: Yes ASA Class: II Anesthesia Type: General [facility] History I have reviewed the patient's past medical history: Yes Medical History: Reports:: Anxiety, Heart Murmur, Hyperlipidemia, Hypertension Denies:: Cancer, Diabetes Mellitus Type 1, Diabetes Mellitus Type 2, Internal Pacemaker, MRSA, Seizures *Have you ever received a pneumonia vaccine?: No *Have you received a flu vaccine this season?: No Other Medical History: Reports: Sinus Problems, Other. Denies: Blood Tra nsfusion Reaction Anesthesia experience/problems:: none Laterality Cases: Right: Arthroscopy Hip Other Surgeries: Yes: No Previous Surgery, Cholecystectomy, Colonoscopy, Hernia Repair, Sinus Surgery, Splenectomy, Other. No: Pacemaker Amputation: No Fractures: Yes - *Social History Last grade of school completed: High school graduate Smoking Status: Current every day smoker Tobacco Type: cigarettes # Packs/Day (cigarettes): 1 #Yrs smoked (if former smoker): 10 Alcohol Intake: current Alcohol Intake Frequency:: a few times a week Substance Use Type: denies use *Occupational Status:: unemployed Housing: house Household Members: spouse *Travel in the last 8 weeks: None - Psychiatric History Pschychiatric History:: Reports:: Anxiety Family Hx:: No significant family history
--- NOTE | 2021-11-11 09:15 | HMH.ANESI ---
[facility] Anesthesia Record Part I Intake, IV Amount: 1,100 Estimated blood loss (mL): 5 Urine output (mL): 0 Blood Pressure: 146/94 SaO2: 94 Pulse Rate: 97 Respiratory Rate: 14 Temperature: 97.4 F Patient is:: Drowsy Stable to PACU at:: 09:13
--- NOTE | 2021-11-11 09:18 | P.OP_ITS ---
Date of procedure: 11/11/21 Pre-op Diagnosis:: obstructive sleep apnea nasal papilomas Post-op Diagnosis:: same Procedure performed:: drug induced sleep endoscopy excision left sinonasal papilomas Surgeon:: Asad Rodas MD Anesthesia: RAIMUNDO Estimated blood loss (mL): 5 Operative findings:: papiloma on head of left inferior turbinate, with what appeared to be previous resection of the anterior inferior aspect of the turbinate papiloma on left anterior septum with erosion through septum creating small septal perforation DISE: V- concentric palatal collapse O- lateral OP collapse T- posterior obstruction E - no significant obstruction Operative note:: The patient was brought to the OR laid in supine position. We for start with a drug-induced sleep endoscopy portion of the procedure. Small amount of Afrin was instilled into the patient's nares. We then slowly uptitrated a propofol drip to induce snoring and apnea. The flexible laryngoscope was then inserted to the patient's right nare. Patient had concentric palatal collapse as well as oropharyngeal collapse. There is anterior posterior tongue base collapse. No significant epiglottic collapse. General anesthesia with the anesthesia team was then induced. After this was completed I then began excising his sinonasal papillomas. The patient had evidence of a previous partial inferior turbinate resection on the left but has had regrowth of papillomas on the head of the residual inferior turbinate. Using Bovie cautery these were excised. Patient additionally had fairly broad- based papilloma on the anterior inferior aspect of the left side of the septum. He also had evidence of a septal perforation where it appeared that the papillomas either had eroded through the septum or during a previous excision the perforation had been created and that the papillomas were starting to extrude into the right side of his nares. I gently excised the papillomas from the left side of the septum with sharp dissection, taking care to not enlarge the existing perforation further. Bipolar cautery was then used for hemostasis. Patient's nose was then thoroughly suctioned out. Hemostasis was achieved with Afrin pledgets. He was then turned back over to anesthesia to be awoken and extubated. Condition: stable Disposition: PACU Complications:: none
--- NOTE | 2021-11-11 09:46 | SUR.PHASEI ---
943- detailed report called to cain mack in post op at this time
--- NOTE | 2021-11-11 10:45 | HMH.ANESII ---
[facility] Anesthesia Record Part II Discharge Time: 09:43 Destination: Surgical Day Care (OP Surgery) PACU nurse assessment reviewed?: Yes Patient Condition:: Good Anesthesia Complications:: None Swallowing reflex intact?: Yes Cyanosis?: No Blood Pressure: 125/78 Pulse Rate: 88 Temperature: 98.6 F Mental Status: Alert & Oriented Pain level:: 1 Nausea and/or vomitting:: None Intake, IV Amount: 0
== END 2021-11-11 10:16 | disposition home or self-care (01) ==
LOC: OR 07:18
PROVIDERS: PCP Emergency Medicine; Visit Provider Student in an Organized Health Care Education/Training Program
PROC: (CPT 30520; principal; 2021-11-11 08:45)
DX: G47.33 Obstructive sleep apnea (adult) (pediatric) (principal); D14.0 Benign neoplasm of middle ear, nasal cavity and accessory sinuses; R01.1 Cardiac murmur, unspecified; E78.5 Hyperlipidemia, unspecified; I10 Essential (primary) hypertension; Z72.0 Tobacco use; Z79.899 Other long term (current) drug therapy
CPT/HCPCS: 42975; 30117; J2405

== ENCOUNTER → 2021-12-15 10:16 | Outpatient (CLI) | payer OTHER, SELFPAY ==
[2021-12-15 10:29] LABS: MANUAL DIFFERENTIAL MANUAL DIFFERENTIAL (MANUAL DIFF)
[2021-12-15 10:55] LABS: Basophils # 0.2 K/mm3 (0-0.2); Basophils % 1.3 % (0.1-2.0); Eosinophils # 0.1 K/mm3 (0.0-0.4); Eosinophils % 0.6 % (0.1-12.0); Hematocrit 51.4 % (42.0-52.0); Hemoglobin 16.4 g/dL (14.1-18.0); Lymphocytes # 3.3 K/mm3 (0.7-4.5); Lymphocytes % 23.9 % (10-50); Mean Corpuscular HGB Conc 31.9 g/dL (31.8-35.4); Mean Corpuscular Hemoglobin 33.3 pg (27.0-31.2); Mean Corpuscular Volume 104.3 fl (80-94); Mean Platelet Volume 7.5 fl (7.4-10.4); Monocytes # 1.4 K/mm3 (0.1-1.0); Monocytes % 10.1 % (1.7-9.3); Neutrophils # 8.9 K/mm3 (1.8-7.8); Neutrophils % 64.1 % (37.0-80.0); Platelet Count 545 K/mm3 (142-424); Red Blood Count 4.93 M/mm3 (4.60-6.20); Red Cell Distribution Width 14.3 % (11.5-17.5); White Blood Count 13.9 K/mm3 (4.8-10.8)
[2021-12-15 11:35] LABS: Alanine Aminotransferase 35 U/L (12-78); Albumin Level 4.9 g/dl (3.5-5.0); Alkaline Phosphatase 87 U/L (38-126); Aspartate Amino Transferase 30 U/L (17-59)
[2021-12-15 11:36] LABS: Total Protein,Serum 7.2 g/dl (6.3-8.2)
[2021-12-15 12:25] LABS: Lymphocytes % 24 % (10-50); Monocytes % 12 % (2-9); Neutrophils % 63 % (42-76); Total Cells Counted 100
[2021-12-15 12:26] LABS: Macrocytosis 1+; Platelet Estimate Slight Increase
[2021-12-15 21:01] LABS: Bilirubin,Indirect 0.1 mg/dL (0.0-0.9); Bilirubin,Total < 0.1 mg/dl (0.2-1.3); Bilirubin,Unconjugated 0.2 mg/dL (0.0-1.1)
[2021-12-21 12:09] LABS: Testosterone, Total, LC/MS 322.9 ng/dL (264.0-916.0); Testosterone,Free 4.2 pg/mL (7.2-24.0)
== END ==
PROVIDERS: PCP Emergency Medicine; Visit Provider Urology
DX: I10 Essential (primary) hypertension (principal); E78.5 Hyperlipidemia, unspecified; E29.1 Testicular hypofunction; Z12.5 Encounter for screening for malignant neoplasm of prostate
CPT/HCPCS: 36415; 80076; 84402; 84403; 85007; 85014; 85018; 85048; 85049; G0103

== ENCOUNTER → 2021-12-18 13:56 | Outpatient (CLI) | payer OTHER, SELFPAY ==
[2021-12-18 13:33] LABS: Barbiturates Screen,Urine Negative ng/ml (<200); Benzodiazepines Screen,Urine Negative ng/ml (<200)
[2021-12-18 13:34] LABS: Amphetamine/Metha Screen,Urine Negative ng/ml (<1000); Cannabinoid Screen,Urine Negative ng/ml (<50)
[2021-12-18 13:35] LABS: Cocaine Screen,Urine Negative ng/ml (<300)
[2021-12-18 13:37] LABS: Phencyclidine Screen,Urine Negative ng/ml (<25)
[2021-12-18 13:43] LABS: Methadone Screen,Urine Negative ng/ml (<300); Opiate Screen,Urine Positive ng/ml (<300)
== END ==
PROVIDERS: PCP Emergency Medicine; Visit Provider Emergency Medicine
DX: Z79.899 Other long term (current) drug therapy (principal)
CPT/HCPCS: 80305

== ENCOUNTER → 2022-01-11 09:33 | Outpatient (CLI) | payer OTHER, SELFPAY ==
[2022-01-11 10:04] LABS: MANUAL DIFFERENTIAL MANUAL DIFFERENTIAL (MANUAL DIFF)
--- NOTE | 2022-01-11 10:05 | ECG_ITS ---
APPROVED REPORT Exam: Resting ECG HR:104 bpm ECG Measurements Heart Rate 104 AXES MO 161 P 59 QRSd 100 QRS 84 QT 315 T 44 QTc 375 Conclusion SINUS TACHYCARDIA ABNORMAL RHYTHM ECG UNCONFIRMED REPORT Electronically signed by : Orion Erazo MD 01/11/2022 21:22:23
[2022-01-11 10:47] LABS: Basophils # 0.2 K/mm3 (0-0.2); Basophils % 1.7 % (0.1-2.0); Eosinophils # 0.1 K/mm3 (0.0-0.4); Eosinophils % 1.5 % (0.1-12.0); Hematocrit 53.7 % (42.0-52.0); Hemoglobin 17.4 g/dL (14.1-18.0); Lymphocytes # 2.9 K/mm3 (0.7-4.5); Lymphocytes % 29.1 % (10-50); Mean Corpuscular HGB Conc 32.4 g/dL (31.8-35.4); Mean Corpuscular Hemoglobin 33.5 pg (27.0-31.2); Mean Corpuscular Volume 103.4 fl (80-94); Mean Platelet Volume 7.5 fl (7.4-10.4); Monocytes # 0.9 K/mm3 (0.1-1.0); Monocytes % 8.7 % (1.7-9.3); Neutrophils # 5.8 K/mm3 (1.8-7.8); Neutrophils % 59.1 % (37.0-80.0); Platelet Count 490 K/mm3 (142-424); Red Cell Distribution Width 13.8 % (11.5-17.5); White Blood Count 9.8 K/mm3 (4.8-10.8)
[2022-01-11 11:04] LABS: Alanine Aminotransferase 39 U/L (12-78); Albumin Level 4.3 g/dl (3.5-5.0); Albumin/Globulin Ratio 1.9 (1.1-1.8); Alkaline Phosphatase 112 U/L (38-126); Anion Gap 14.6 mEq/L (5-15); Aspartate Amino Transferase 32 U/L (17-59); Bilirubin,Total 0.4 mg/dl (0.2-1.3); Blood Urea Nitrogen 16 mg/dl (9-20); Carbon Dioxide 23 mmol/L (22.0-30.0); Chloride 100 mmol/L (98-107); Estimated Glomerular Filt Rate 119 ml/min (>60); GFR (African American) 144 ML/MIN (>60); Globulin 2.3 g/dL (1.3-3.2); Glucose 188 mg/dl (74-100); Potassium 4.6 mmoL/L (3.5-5.1); Sodium 133 mmol/L (136-145); Total Protein,Serum 6.6 g/dl (6.3-8.2)
[2022-01-11 11:52] LABS: Lymphocytes % 30 % (10-50); Monocytes % 11 % (2-9); Neutrophils % 54 % (42-76); Total Cells Counted 100
[2022-01-11 11:53] LABS: Anisocytosis 1+; Macrocytosis 1+
[2022-01-11 11:54] LABS: Platelet Estimate Slight Increase
== END ==
PROVIDERS: PCP Emergency Medicine; Visit Provider Student in an Organized Health Care Education/Training Program
DX: Z01.818 Encounter for other preprocedural examination (principal); D14.0 Benign neoplasm of middle ear, nasal cavity and accessory sinuses; G47.33 Obstructive sleep apnea (adult) (pediatric)
CPT/HCPCS: 36415; 80053; 85007; 85014; 85018; 85048; 85049; 93005

== ENCOUNTER 2022-01-13 06:05 | Day surgery (SDC) | payer OTHER, SELFPAY ==
[2022-01-12 11:05] VITALS: BMI 29.2
[2022-01-13] VITALS (10 sets, daily range): BP systolic 120–186; BP diastolic 69–99; PULSE 84–113; RESP 16–24; TEMP 36.2–36.4; O2SAT 92–97
--- NOTE | 2022-01-13 07:22 | P.PN_ITS ---
[facility] Medical History (Updated 01/13/22 @ 06:35 by Bonnie Bellamy RN) Chronic pain Heart murmur Hypertension Hypogonadism in male Inverted papilloma of lateral nasal wall Obstructive sleep apnea syndrome Overweight (BMI 25.0-29.9) Pulmonary HTN Sinus problem Surgical History (Updated 01/13/22 @ 06:38 by Bonnie Bellamy, RN) H/O arthroscopy History of cholecystectomy History of hip surgery History of surgery Hx of hernia repair Hx of splenectomy Family History (Updated 01/13/22 @ 06:36 by Bonnie Bellamy RN) Other Family history of hyperlipidemia Family history of hypertension Social History (Updated 01/13/22 @ 06:40 by Bonnie Bellamy RN) Smoking Status: Current every day smoker tobacco type: cigarettes packs per day: 1 pack-years: 20 second hand exposure: Yes alcohol intake: current substance use type: denies use current occupational status: unemployed Travel in the last 8 weeks: None household members: spouse and none housing: house 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 current occupational exposures/hazards: No caffeine: Yes special bijan needs: No agree to transfusion: No do you feel safe at home: Yes victim of physical abuse: No victim of emotional abuse: No victim of sexual abuse: No would you like helpful sources: No [facility] Anesthesia Checklist Patient Identification Patient Identification: Arm Band and Family Structural Data Admitted From: Home Planned Operative Procedure/s: multiple Consent for Planned Operative Procedure(s) Verified: Yes Verified Documents: Surgical Consent NPO Status Verified Time NPO: 00:00 Additional verifications Patient : No Anesthesia Reactions: No Hx Blood Transfusions: Yes Blood Transfusion Reaction: No Cephalosporin Allergy: No Airway Assessment C-Spine Mobility Assessed: Yes TMJ Mobility Assessed: Yes Dentition: Good Dentition Neurological Assessment Level of Consciousness: Awake, Alert, Appropriate and Follows Commands Hx Seizures: No Numbness or tingling in extremities: No Genitourinary Assessment Voided tank car 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
--- NOTE | 2022-01-13 09:43 | EXP.OP.NOTE ---
Date of procedure: 01/13/22 Pre-op Diagnosis:: obstructive sleep apnea Post-op Diagnosis:: same Procedure performed:: tonsillectomy, expansion uvulopalatalpharyngoplasty Surgeon:: Asad Rodas MD Anesthesia: RAIMUNDO Estimated blood loss (mL): 10 Operative findings:: 2+ tonsils Operative note:: The patient was brought to the OR, laid in the supine position, general anesthesia was induced. The patient was prepped and draped in usual fashion. Lidocaine with epinephrine 1-100,000 was injected into the palate. For started with the tonsillectomy portion of the procedure. He was suspended with a Amanda Ismael mouthgag. Patient had 2+ tonsils. First the right tonsil, than the left tonsil were excised with Bovie cautery. Hemostasis was then achieved with suction cautery. Based on the patient's previous drug-induced sleep endoscopy which showed significant concentric palatal and oropharyngeal collapse I elected to perform an expansion pharyngoplasty for the U P3. First on the left his palatal pharyngeus muscle was isolated and divided. The inferior aspect was sewn laterally to some periosteum of the angle the mandible, and the superior aspect of the muscle sutured superiorly through periosteum of the hard palate. This same procedure was then performed on the right side as well. I then excised a small portion of mucosa from the inferior aspect of the patient's uvula and a small part of the distal aspect of the uvula was excised. The uvula minor salivary tissue was debulked and then it was sutured anteriorly. Care was taken throughout all this to ensure patient could still contact his posterior oropharyngeal wall to prevent postoperative VPI. I then used chromic sutures to reapproximate the tonsillar pillars over top of the palatal pharyngeal muscles. Care was taken to preserve all of the mucosa posteriorly. His mouth were then thoroughly irrigated and suctioned out. He was then turned back over to anesthesia to be awoken and extubated. Condition: stable Disposition: PACU Complications:: none
--- NOTE | 2022-01-13 09:53 | P.PNANES_ITS ---
[facility] Anesthesia Record Part I Anesthesia Record I Intake, IV Amount: 1,900 Estimated blood loss (mL): 10 Urine output (mL): 0 Blood Products used (#): none Blood Pressure: 120/69 SaO2: 92 Pulse Rate: 92 Respiratory Rate: 24 Temperature: 97.1 F Patient is:: Drowsy Stable to PACU at:: 09:45
--- NOTE | 2022-01-13 14:03 | PC.NURSE ---
1021-detailed report called to HERBERTH Hardin 1024-pt transported to post op via stretcher w/amy rails up and left in care of HERBERTH Hardin with bed locked in lowest position, vss, pt stable
--- NOTE | 2022-01-14 07:22 | P.PNANES_ITS ---
[facility] Anesthesia Record Part II Anesthesia Record Part II Discharge Time: 10:24 Destination: Surgical Day Care (OP Surgery) PACU nurse assessment reviewed?: Yes Patient Condition:: Good Anesthesia Complications:: None Swallowing reflex intact?: Yes Cyanosis?: No Blood Pressure: 148/90 Pulse Rate: 87 Temperature: 97.5 F Mental Status: Alert & Oriented Pain level:: 5 Nausea and/or vomitting:: None Intake, IV Amount: 0
[2022-01-14 07:23] VITALS: BP 148/90; PULSE 87; TEMP 36.4
== END 2022-01-13 11:00 | disposition home or self-care (01) ==
PROVIDERS: PCP Emergency Medicine; Visit Provider Student in an Organized Health Care Education/Training Program
PROC: (CPT 42826; principal; 2022-01-13 07:30)
DX: G47.33 Obstructive sleep apnea (adult) (pediatric) (principal); Z72.0 Tobacco use; Z79.899 Other long term (current) drug therapy
CPT/HCPCS: 42826; 42145; 96374; J2405

== ENCOUNTER → 2022-02-03 10:52 | Outpatient (CLI) | payer OTHER, SELFPAY ==
--- NOTE | 2022-02-03 10:57 | XR_ITS ---
FINAL REPORT CLINICAL HISTORY: LT SHOULDER PAIN FINDINGS: LEFT SHOULDER 3 views of the left shoulder were obtained. There is no acute fracture or dislocation. The joint spaces are intact. There is no soft tissue abnormality. IMPRESSION: No acute bony abnormality. Reviewed, Interpreted and Dictated by Epifanio Chong MD Transcribed by Florence Franco Authenticated and [facility]
--- NOTE | 2022-02-03 10:57 | XR_ITS ---
FINAL REPORT CLINICAL HISTORY: OSTEOARTHRITIS pain in elbow x 5 months FINDINGS: LEFT ELBOW 3 views were obtained. There is no acute fracture or dislocation. The joint spaces are intact. No joint effusion is seen. There is no soft tissue abnormality. IMPRESSION: No acute bony abnormality. Reviewed, Interpreted and Dictated by Epifanio Chong MD Transcribed by Florence Franco Authenticated and [facility]
--- NOTE | 2022-02-03 10:57 | XR_ITS ---
FINAL REPORT CLINICAL HISTORY: OSTEOARTHRITIS pain in elbow x 5 months FINDINGS: RIGHT ELBOW 3 views were obtained. There is no acute fracture or dislocation. The joint spaces are intact. No joint effusion is seen. There is no soft tissue abnormality. IMPRESSION: No acute bony abnormality. Reviewed, Interpreted and Dictated by Epifanio Chong MD Transcribed by Florence Franco Authenticated and [facility]
== END ==
PROVIDERS: PCP Emergency Medicine; Visit Provider Nurse Practitioner Family
DX: M25.512 Pain in left shoulder (principal); M15.0 Primary generalized (osteo)arthritis; M25.522 Pain in left elbow; M25.521 Pain in right elbow
CPT/HCPCS: 73030; 73080

== ENCOUNTER 2022-02-10 11:00 | Emergency (ER) | payer OTHER, SELFPAY ==
[2022-02-10 11:05] VITALS: BP 160/96; PULSE 100; RESP 18; TEMP 36.6; O2SAT 97; BMI 29.2
[2022-02-10 11:53] VITALS: BP 134/91; PULSE 134; O2SAT 97
--- NOTE | 2022-02-10 11:57 | HMH.EDGENADL ---
Discharge Plan Disposition Patient Disposition: Home, Self-Care Condition: Fair Prescriptions Prescriptions: New clindamycin HCl 300 mg capsule 300 mg PO QID Qty: 40 0RF No Action gabapentin 600 mg tablet 600 mg PO TID Qty: 90 1RF oxycodone 5 mg tablet 10 mg PO Q6H PRN (Reason: pain) 7 Days Qty: 56 0RF sildenafil (pulm.hypertension) 20 mg tablet 20 mg PO DAILY PRN (Reason: sexual activity) Qty: 40 0RF methylprednisolone [Medrol (Joseph)] 4 mg tablets,dose pack See Rx Instructions PO PER PKG DIR Qty: 21 0RF Rx Instructions: PO PER PKG DIR mupirocin 2 % ointment 1 applic topical BID Qty: 22 0RF trazodone 50 MG tablet 50 mg PO DAILY Rx Instructions: TAKE ONE TABLET BY MOUTH EVERY NIGHT AT BEDTIME FOR SLEEP fexofenadine 180 mg tablet 180 mg PO DAILY Rx Instructions: TAKE ONE TABLET BY MOUTH EVERY DAY FOR ALLERGIES testosterone cypionate 200 mg/mL oil 200 mg IM Q6 lisinopril 40 mg tablet 40 mg PO DAILY Rx Instructions: TAKE 1 TABLET BY MOUTH DAILY nicotine 21-14-7 mg/24 hr patch, TD daily, sequential See Rx Instructions .ROUTE .COMPLEX Qty: 56 0RF Rx Instructions: apply 1-21 mg NICOTINE PATCH daily for 28 days; follow with 1-14 mg PATCH daily for 14 days, then 1-7mg PATCH daily for 14 days Referrals Follow up/Referrals: Anatoliy Coyne MD [Primary Care Provider] - See instructions Activity Restrictions/Add. Instructions Additional Instructions/Restrictions: Take clindamycin as prescribed. Continue using mupirocin ointment . follow-up with ENT on Tuesday as scheduled. Return to emergency department if worsening swelling, fever, any difficulty breathing or swallowing. Clinical Impressions Clinical Impression: Cellulitis of face, Impetigo Instructions Patient Instructions: DI for Cellulitis -- Adult, DI for Impetigo Discharge ED Provider: Mikey Vasquez Adult [facility] General Chief complaint: Skin/Abscess/Foreign Body Stated complaint: possible facial infection, swelling Time Seen by Provider: 02/10/22 11:57 Mode of Arrival: Ambulatory Limitations: No Limitations Description of Symptoms (Recalled from ER Triage Doc. by RN): PT WITH C/O IMPETIGO THAT HE GETS EVERY JANUARY. STARTED ON TUESDAY AM. USING TOPICAL CREAM FROM ENT. SWELLING NOTED TO UPPER LIP INTO JAW/CHEEK History of Present Illness HPI narrative: Complains of a facial infection. States that Tuesday morning 2 days ago he started with his typical episode of impetigo that he gets every January. It always occurs on his right upper lip laterally. Generally associated with cold weather and shaving. He usually gets mupirocin cream. He called his primary care doctor and they transmitted him a prescription for this. He has started, but this morning his right side of his face was swollen, which has never happened before. He felt a little feverish yesterday but did not take his temperature. He says the swelling has decreased since this morning. He has had a recent nasal and oral surgery. 2 months ago he had nasal surgery for polyps. A month ago he had a tonsillectomy and palatal surgery for sleep apnea. This was done by Dr. Rodas. He has an appointment to follow-up with Dr. Rodas in the office on Tuesday Related Data Home Medications Medication Instructions Recorded Confirmed trazodone 50 mg tablet 50 mg PO DAILY sleep 11/09/21 01/19/22 fexofenadine 180 mg tablet 180 mg PO DAILY allergies 01/12/22 01/19/22 lisinopril 40 mg tablet 40 mg PO DAILY HTN 01/12/22 01/19/22 testosterone cypionate 200 mg/mL 200 mg IM Q6 Supplement 01/12/22 01/19/22 intramuscular oil Previous Rx's Medication Instructions Recorded sildenafil (pulm.hypertension) 20 20 mg PO DAILY PRN sexual activity 05/20/21 mg tablet #40 tabs gabapentin 600 mg tablet 600 mg PO TID Pain #90 tabs 12/18/21 nicotine See Rx Instructions transdermal 01/13/22 21mg/24hr-14mg
--- NOTE | 2022-02-10 11:58 | PC.NURSE ---
DR. MCDANIELS AT BEDSIDE FOR EVALUATION
[2022-02-10 12:32] LABS: Basophils # 0.1 K/mm3 (0-0.2); Basophils % 0.5 % (0.1-2.0); Eosinophils # 0.4 K/mm3 (0.0-0.4); Hematocrit 40.7 % (42.0-52.0); Hemoglobin 13.3 g/dL (14.1-18.0); Lymphocytes # 2.6 K/mm3 (0.7-4.5); Lymphocytes % 14.3 % (10-50); Mean Corpuscular HGB Conc 32.7 g/dL (31.8-35.4); Mean Corpuscular Hemoglobin 33.1 pg (27.0-31.2); Mean Corpuscular Volume 101.3 fl (80-94); Mean Platelet Volume 7.5 fl (7.4-10.4); Monocytes # 1.2 K/mm3 (0.1-1.0); Monocytes % 6.7 % (1.7-9.3); Neutrophils # 13.7 K/mm3 (1.8-7.8); Neutrophils % 76.4 % (37.0-80.0); Platelet Count 387 K/mm3 (142-424); Red Blood Count 4.02 M/mm3 (4.60-6.20); Red Cell Distribution Width 13.8 % (11.5-17.5); White Blood Count 17.9 K/mm3 (4.8-10.8)
[2022-02-10 12:35] LABS: MANUAL DIFFERENTIAL MANUAL DIFFERENTIAL (MANUAL DIFF)
[2022-02-10 12:43] LABS: Anion Gap 19.1 mEq/L (5-15); Blood Urea Nitrogen 15 mg/dl (9-20); Calcium 9.2 mg/dl (8.4-10.2); Carbon Dioxide 21 mmol/L (22.0-30.0); Chloride 103 mmol/L (98-107); Creatinine Clearance Estimated 198 mL/min (50-200); Estimated Glomerular Filt Rate 143 ml/min (>60); GFR (African American) 173 ML/MIN (>60); Glucose 101 mg/dl (74-100); Potassium 5.1 mmoL/L (3.5-5.1); Sodium 138 mmol/L (136-145)
--- NOTE | 2022-02-10 12:50 | PC.NURSE ---
TOLERATING IV ABX, TALKING ON PHONE, NO NEEDS VOICED
[2022-02-10 13:01] LABS: Lymphocytes % 16 % (10-50); Macrocytosis 1+; Monocytes % 3 % (2-9); Neutrophils % 81 % (42-76); Platelet Estimate Normal; Total Cells Counted 100
[2022-02-10 13:08] VITALS: BP 136/88; PULSE 89; RESP 18; TEMP 36.7; O2SAT 99
== END 2022-02-10 13:11 | disposition home or self-care (01) ==
PROVIDERS: Emergency Provider Emergency Medicine; PCP Emergency Medicine
DX: L01.00 Impetigo, unspecified (principal); L03.211 Cellulitis of face; J02.9 Acute pharyngitis, unspecified; D14.0 Benign neoplasm of middle ear, nasal cavity and accessory sinuses; R21 Rash and other nonspecific skin eruption; I27.20 Pulmonary hypertension, unspecified; I10 Essential (primary) hypertension; R01.1 Cardiac murmur, unspecified; E29.1 Testicular hypofunction; G89.4 Chronic pain syndrome; J44.9 Chronic obstructive pulmonary disease, unspecified; F17.210 Nicotine dependence, cigarettes, uncomplicated; Z79.899 Other long term (current) drug therapy; Z82.49 Family history of ischemic heart disease and other diseases of the circulatory system; Z83.438 Family history of other disorder of lipoprotein metabolism and other lipidemia
CPT/HCPCS: 80048; 85007; 85025; 99283

== ENCOUNTER → 2022-02-15 09:31 | Outpatient (CLI) | payer OTHER, SELFPAY ==
[2022-02-15 19:09] LABS: Barbiturates Screen,Urine Negative ng/ml (<200)
[2022-02-15 19:10] LABS: Amphetamine/Metha Screen,Urine Negative ng/ml (<1000); Benzodiazepines Screen,Urine Negative ng/ml (<200)
[2022-02-15 19:11] LABS: Cannabinoid Screen,Urine Negative ng/ml (<50); Cocaine Screen,Urine Negative ng/ml (<300)
[2022-02-15 19:12] LABS: Methadone Screen,Urine Negative ng/ml (<300)
[2022-02-15 19:13] LABS: Opiate Screen,Urine Positive ng/ml (<300); Phencyclidine Screen,Urine Negative ng/ml (<25)
== END ==
PROVIDERS: PCP Emergency Medicine; Visit Provider Emergency Medicine
DX: Z79.899 Other long term (current) drug therapy (principal)
CPT/HCPCS: 80305

== ENCOUNTER → 2022-06-08 07:57 | Outpatient (CLI) | payer OTHER, SELFPAY ==
[2022-06-08 14:40] LABS: Amphetamine/Metha Screen,Urine Negative ng/ml (<1000); Barbiturates Screen,Urine Negative ng/ml (<200)
[2022-06-08 14:41] LABS: Benzodiazepines Screen,Urine Negative ng/ml (<200)
[2022-06-08 14:43] LABS: Cannabinoid Screen,Urine Negative ng/ml (<50)
[2022-06-08 14:44] LABS: Cocaine Screen,Urine Negative ng/ml (<300)
[2022-06-08 14:45] LABS: Methadone Screen,Urine Negative ng/ml (<300); Opiate Screen,Urine Positive ng/ml (<300)
[2022-06-08 14:46] LABS: Phencyclidine Screen,Urine Negative ng/ml (<25)
== END ==
PROVIDERS: PCP Emergency Medicine; Visit Provider Emergency Medicine
DX: Z79.899 Other long term (current) drug therapy (principal)
CPT/HCPCS: 80305

== ENCOUNTER → 2022-06-18 12:42 | Outpatient (CLI) | payer OTHER, SELFPAY ==
--- NOTE | 2022-06-18 12:49 | XR_ITS ---
FINAL REPORT CLINICAL HISTORY: bilat posterior neck pain, pain radiates down arms, numbness/tingling COMPARISON: 12/13/2018 FINDINGS: CERVICAL SPINE Four views were obtained. There is no acute fracture. There is no malalignment. There is reversal of normal cervical lordosis. The disc spaces are preserved. Incidental note is made of mild to moderate vascular calcification at the right carotid bifurcation. IMPRESSION: No acute bony abnormality. Reversal of the normal cervical lordosis. Mild to moderate vascular calcification at the right carotid bifurcation. Reviewed, Interpreted and Dictated by Epifanio Chong MD Transcribed by Florence Franco Authenticated and [facility]
--- NOTE | 2022-06-18 14:28 | MR_ITS ---
FINAL REPORT CLINICAL HISTORY: back pain LEFT SIDED LOWER BACK PAIN WITH LEFT LEG PAIN, TINGLING, NUMBNESS, AND BURNING SINCE 2017 FINDINGS: Multiplanar MR imaging of the lumbar spine was performed without contrast. On the sagittal T2-weighted images, decreased signal is seen at T12-L1, L3-4, L4-5 and L5-S1. The vertebral alignment is normal. There is no evidence of fracture. No bony mass is identified. The conus is seen at approximately the L1 level and has an unremarkable appearance. T12-L1: Moderate diffuse disc bulge with flattening of the anterior aspect of the thecal sac. There is mild central canal stenosis. L1-2: There is no significant canal stenosis or neural foraminal narrowing. L2-3: Right posterolateral disc protrusion and annular tear with moderate right neural foraminal narrowing. L3-4: Mild diffuse disc bulge with mild bilateral neural foraminal narrowing. L4-5: Mild diffuse disc bulge with mild bilateral neural foraminal narrowing. L5-S1: Moderate midline disc protrusion with anterior indention of the thecal sac. There is mild to moderate canal stenosis. There is [id number] bilateral neural foraminal narrowing. IMPRESSION: Midline disc protrusion L5-S1 with moderate right neural foraminal narrowing. Diffuse disc bulge at T12-L1 with mild canal stenosis. Reviewed, Interpreted and Dictated by Epifanio Chong MD Transcribed by Kaya Rodriguez Authenticated and [facility]
== END ==
PROVIDERS: PCP Emergency Medicine; Visit Provider Emergency Medicine
DX: M54.2 Cervicalgia (principal); M54.16 Radiculopathy, lumbar region
CPT/HCPCS: 72040; 72148; 76376

== ENCOUNTER 2022-06-23 08:32 | Day surgery (SDC) | payer OTHER, SELFPAY ==
[2022-06-21 11:09] VITALS: BMI 31.5
[2022-06-23] VITALS (10 sets, daily range): BP systolic 138–178; BP diastolic 76–93; PULSE 72–106; RESP 12–19; TEMP 36.6–43; O2SAT 94–98
--- NOTE | 2022-06-23 11:02 | P.PN_ITS ---
[facility] Disclaimer: The information contained in this section may have been updated after the patient was seen, as this information can be updated by other users. Medical History Arthritis Bulging disc Bursitis Carpal tunnel syndrome Chronic pain Heart murmur History of back pain History of COVID-19 History of diverticulitis Hypertension Hypogonadism in male Inverted papilloma of lateral nasal wall Nerve compression Obstructive sleep apnea syndrome Overweight (BMI 25.0-29.9) Perforated nasal septum Pulmonary HTN Sinus headache Sinus problem Sleep apnea Surgical History H/O arthroscopy History of cholecystectomy History of hip surgery History of surgery Hx of hernia repair Hx of splenectomy Hx of tonsillectomy Family History Other Family history of hyperlipidemia Family history of hypertension Social History (Updated 06/23/22 @ 08:47 by Bonnie Bellamy RN) Smoking Status: Current every day smoker tobacco type: cigarettes packs per day: 1 pack-years: 20 second hand exposure: Yes alcohol intake: current substance use type: denies use current occupational status: unemployed Travel in the last 8 weeks: None household members: spouse housing: house 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 current occupational exposures/hazards: No caffeine: Yes special bijan needs: No agree to transfusion: No do you feel safe at home: Yes victim of physical abuse: No victim of emotional abuse: No victim of sexual abuse: No would you like helpful sources: No [facility] Anesthesia Checklist Patient Identification Patient Identification: Arm Band and Verbal (Name & ) Structural Data Admitted From: Home Planned Operative Procedure/s: Nasal Turbinate Reduction Consent for Planned Operative Procedure(s) Verified: Yes Verified Documents: Surgical Consent NPO Status Verified Time NPO: 00:00 Additional verifications Anesthesia Reactions: No Hx Blood Transfusions: Yes Blood Transfusion Reaction: No Airway Assessment C-Spine Mobility Assessed: Yes TMJ Mobility Assessed: Yes Dentition: Good Dentition Neurological Assessment Level of Consciousness: Awake, Alert and Appropriate Anesthesia Plan Anesthesia Risk discussed: Yes ASA Class: II Anesthesia Type: General
--- NOTE | 2022-06-23 12:09 | P.OP_ITS ---
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 I previously excised these last year before we had pathologic diagnosis of inverted papilloma. They recurred rather quickly following this procedure. After discussing the risk and benefits particular with inverted papilloma that over time there is a small chance these could turn into a squamous cell carcinoma she is elected to proceed with repeat excision. The one on his septum is around an existing septal perforation and he understands that by further excising this area it almost certainly will enlarge his perforation and the potential issues associated with this. Patient was brought to the OR, laid in the supine position, and in general anesthesia was induced. Afrin-soaked pledgets were used to decongest the patient's nares. Nasal endoscopy again confirmed the recurrent primarily left- sided papilloma around his septal perforation as well as a papilloma in the area of the left head of the inferior turbinate. For starting with the turbinate under direct visualization with both anterior rhinoscopy as well as the 0 degree rigid endoscope I performed a wide local excision with Bovie cautery. I excised essentially down to the periosteum of the bone of the head of the inferior turbinate as well as taking a small margin around the base of the papilloma. Is then placed on the back table for permanent pathology. I then went to the septum where again I outlined a small margin around the existing papilloma and excised it with Bovie cautery. The papilloma essentially extended around the entire margin of the existing septal perforation, so as discussed preoperatively this did enlarge the perforation some as expected. Hemostasis was further achieved with suction cautery. Patient's nose and mouth was then thoroughly irrigated and suctioned out. He was then turned back over to anesthesia to be awoken and extubated. Condition: stable Disposition: PACU Complications:: none
--- NOTE | 2022-06-23 12:15 | P.PNANES_ITS ---
[facility] Anesthesia Record Part I Anesthesia Record I Intake, IV Amount: 1,500 Estimated blood loss (mL): 20 Urine output (mL): 0 Blood Pressure: 139/80 SaO2: 95 Pulse Rate: 80 Respiratory Rate: 12 Temperature: 97.8 F Patient is:: Awake and Stable Stable to PACU at:: 12:10
[2022-06-24 07:13] VITALS: BP 178/92; PULSE 81; TEMP 36.6
--- NOTE | 2022-06-24 07:13 | P.PNANES_ITS ---
[facility] Anesthesia Record Part II Anesthesia Record Part II Discharge Time: 12:40 Destination: Surgical Day Care (OP Surgery) PACU nurse assessment reviewed?: Yes Patient Condition:: Good Anesthesia Complications:: None Swallowing reflex intact?: Yes Cyanosis?: No Blood Pressure: 178/92 Pulse Rate: 81 Temperature: 97.8 F Mental Status: Alert & Oriented Pain level:: 6 Nausea and/or vomitting:: None Intake, IV Amount: 0
== END 2022-06-23 13:11 | disposition home or self-care (01) ==
PROVIDERS: PCP Emergency Medicine; Visit Provider Student in an Organized Health Care Education/Training Program
PROC: (CPT 30520; principal; 2022-06-23 10:15)
DX: D14.0 Benign neoplasm of middle ear, nasal cavity and accessory sinuses (principal); F17.210 Nicotine dependence, cigarettes, uncomplicated; Z79.899 Other long term (current) drug therapy
CPT/HCPCS: 30117; 96374; J2405

== ENCOUNTER 2022-07-03 11:26 | Emergency (ER) | payer OTHER, SELFPAY ==
[2022-07-03 12:00] VITALS: BP 184/97; PULSE 99; RESP 20; TEMP 37.3; O2SAT 97; BMI 31.5
--- NOTE | 2022-07-03 12:03 | EXP.UTC ---
Discharge Plan Disposition Patient Disposition: Home, Self-Care Condition: Good Prescriptions Prescriptions: New ciprofloxacin HCl 0.3 % drops See Rx Instructions .ROUTE .COMPLEX Qty: 5 0RF Rx Instructions: put 1 drp in both eyes every 2hr x2days; then 4 times/day x5days No Action sildenafil (pulm.hypertension) 20 mg tablet 20 mg PO DAILY PRN (Reason: sexual activity) Qty: 40 0RF trazodone 50 MG tablet 50 mg PO DAILY Rx Instructions: TAKE ONE TABLET BY MOUTH EVERY NIGHT AT BEDTIME FOR SLEEP gabapentin 800 mg tablet 800 mg PO TID hydrocodone-acetaminophen 7.5-325 mg tablet 1 tab PO BID lisinopril 40 mg tablet 40 mg PO DAILY Rx Instructions: TAKE 1 TABLET BY MOUTH ONCE DAILY nicotine 21-14-7 mg/24 hr patch, TD daily, sequential See Rx Instructions .ROUTE .COMPLEX Rx Instructions: apply 1-21 mg NICOTINE PATCH daily for 28 days; follow with 1-14 mg PATCH daily for 14 days, then 1-7mg PATCH daily for 14 days mupirocin 2 % ointment 1 applic topical TID Qty: 15 0RF Nasal [place] (sodium chloride) 0.65 % aerosol,spray 2 spray intranasal QID Qty: 44 6RF fexofenadine 180 mg tablet 180 mg PO DAILY Rx Instructions: TAKE ONE TABLET BY MOUTH EVERY DAY FOR ALLERGIES testosterone cypionate 200 mg/mL oil 200 mg IM Q6 Referrals Follow up/Referrals: Anatoliy Coyne MD [Primary Care Provider] - See instructions Activity Restrictions/Add. Instructions Additional Instructions/Restrictions: Use the eye drops as directed. Strict hand washing in the house hold, because conjunctivitis is very contagious. Follow up with your regular doctor. GO TO THE ER FOR ANY WORSENING SYMPTOMS OR CONCERNS Drink plenty of fluids. Take tylenol for pain or fever. Return if you begin to have difficulty breathing. Follow up with your regular doctor. GO TO THE ER FOR ANY WORSENING SYMPTOMS Clinical Impressions Clinical Impression: Conjunctivitis, Acute viral syndrome Instructions Patient Instructions: How to Instill Eye Drops, Coronavirus Disease 2019, Preventing the Spread of Coronavirus Discharge Instructions Discharge ED Provider: [facility] HPI General Stated complaint: home test positive, weakness headache Time Seen by Provider: 07/03/22 12:03 History of Present Illness Provider Complaint: He is here to be checked for strep throat. He tested positive on a home covid-19 test. He refuses covid-19 testing here, but he does request to be tested for strep throat. Related Data Home Medications Medication Instructions Recorded Confirmed trazodone 50 mg tablet 50 mg PO DAILY sleep 11/09/21 07/03/22 fexofenadine 180 mg tablet 180 mg PO DAILY allergies 01/12/22 07/03/22 testosterone cypionate 200 mg/mL 200 mg IM Q6 Supplement 01/12/22 06/23/22 intramuscular oil gabapentin 800 mg tablet 800 mg PO TID Pain 06/21/22 07/03/22 hydrocodone 7.5 mg-acetaminophen 1 tab PO BID Pain 06/21/22 07/03/22 325 mg tablet lisinopril 40 mg tablet 40 mg PO DAILY BP 06/21/22 07/03/22 nicotine See Rx Instructions .Route 06/21/22 06/23/22 21mg/24hr-14mg/24hr-7mg/24hr daily .COMPLEX . transderm patches,sequentl Previous Rx's Medication Instructions Recorded sildenafil (pulm.hypertension) 20 20 mg PO DAILY PRN sexual activity 05/20/21 mg tablet #40 tabs mupirocin 2 % topical ointment 1 applic topical TID #15 grams 06/23/22 sodium chloride 0.65 % nasal spray 2 spray intranasal QID #44 mL 06/23/22 aerosol (Nasal [place] (sodium chloride)) ciprofloxacin HCl 0.3 % eye drops See Rx Instructions ophthalmic 07/03/22 (eye) .COMPLEX #5 mL Allergies Allergy/AdvReac Type Severity Reaction Status Date / Time No Known Allergies Allergy Verified 07/03/22 12:13 [facility] Disclaimer: The information contained in this section may have been updated after the patient was seen, as this information can be updated b
[2022-07-03 12:21] LABS: UTC Strep Screen (Rapid) Negative (Negative)
[2022-07-03 13:02] VITALS: BP 184/97; PULSE 99; RESP 20; TEMP 37.3; O2SAT 97
== END 2022-07-03 13:02 | disposition home or self-care (01) ==
PROVIDERS: Emergency Provider Nurse Practitioner Family; PCP Emergency Medicine
DX: U07.1 COVID-19 (principal); H10.9 Unspecified conjunctivitis; F17.210 Nicotine dependence, cigarettes, uncomplicated; I10 Essential (primary) hypertension; G47.33 Obstructive sleep apnea (adult) (pediatric)
CPT/HCPCS: 87880; 99212; 99214; G0463

== ENCOUNTER → 2022-07-08 09:39 | Outpatient (POV) | payer OTHER, SELFPAY ==
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
[2022-07-08 10:23] VITALS: BP 161/103; PULSE 98; RESP 18; O2SAT 98; BMI 31.1
== END ==
PROVIDERS: PCP Emergency Medicine; Visit Provider Nurse Practitioner Family
DX: M51.16 Intervertebral disc disorders with radiculopathy, lumbar region (principal); M25.551 Pain in right hip; M25.511 Pain in right shoulder; M25.529 Pain in unspecified elbow; M25.569 Pain in unspecified knee
CPT/HCPCS: 99202; G0463

== ENCOUNTER 2022-07-12 13:28 | Outpatient (CLI) | payer OTHER, SELFPAY ==
[2022-07-12 13:31] VITALS: BMI 31.5
--- NOTE | 2022-07-12 13:40 | PC.NURSE ---
1340-collected labs via venipuncture stick with butterfly will wait for results ;if hgb >16 draw off 250ml via therapeutic phlebotomy
[2022-07-12 14:12] LABS: Hematocrit 53.4 % (42.0-52.0); Hemoglobin 17.4 g/dL (14.1-18.0)
[2022-07-12 14:25] VITALS: BP 181/102; PULSE 107; RESP 18; O2SAT 95
[2022-07-12 14:43] VITALS: BP 162/99; PULSE 107; RESP 18; O2SAT 96
== END 2022-07-12 14:43 | disposition home or self-care (01) ==
LOC: INF 13:29
PROVIDERS: PCP Emergency Medicine; Visit Provider Urology
DX: R71.8 Other abnormality of red blood cells (principal)
CPT/HCPCS: 36415; 85014; 85018; 99195

== ENCOUNTER → 2022-08-03 08:50 | Outpatient (CLI) | payer OTHER, SELFPAY ==
[2022-08-03 16:22] LABS: Amphetamine/Metha Screen,Urine Negative ng/ml (<1000); Barbiturates Screen,Urine Negative ng/ml (<200)
[2022-08-03 16:23] LABS: Benzodiazepines Screen,Urine Negative ng/ml (<200)
[2022-08-03 16:24] LABS: Cannabinoid Screen,Urine Negative ng/ml (<50); Cocaine Screen,Urine Negative ng/ml (<300)
[2022-08-03 16:25] LABS: Methadone Screen,Urine Negative ng/ml (<300)
[2022-08-03 16:26] LABS: Opiate Screen,Urine Positive ng/ml (<300); Phencyclidine Screen,Urine Negative ng/ml (<25)
== END ==
PROVIDERS: PCP Emergency Medicine; Visit Provider Emergency Medicine
DX: G89.29 Other chronic pain (principal)
CPT/HCPCS: 80305

== ENCOUNTER 2022-09-03 10:53 | Outpatient (CLI) | payer OTHER, SELFPAY ==
[2022-09-03 11:03] VITALS: BMI 33.4
[2022-09-03 11:27] LABS: Hematocrit 53.8 % (42.0-52.0); Hemoglobin 17.5 g/dL (14.1-18.0)
[2022-09-03 12:15] VITALS: BP 145/83; PULSE 101; RESP 16; TEMP 36.4; O2SAT 100
[2022-09-03 12:45] VITALS: BP 148/85; PULSE 99; RESP 16; TEMP 36.4; O2SAT 99
== END 2022-09-03 12:48 | disposition home or self-care (01) ==
LOC: INF 10:54
PROVIDERS: PCP Emergency Medicine; Visit Provider Urology
DX: R71.8 Other abnormality of red blood cells (principal)
CPT/HCPCS: 36415; 85014; 85018; 99195

== ENCOUNTER → 2022-09-20 13:13 | Outpatient (CLI) | payer OTHER, SELFPAY ==
[2022-09-20 13:16] LABS: Amphetamine/Metha Screen,Urine Negative ng/ml (<1000)
[2022-09-20 13:17] LABS: Barbiturates Screen,Urine Negative ng/ml (<200); Benzodiazepines Screen,Urine Negative ng/ml (<200)
[2022-09-20 13:18] LABS: Cannabinoid Screen,Urine Negative ng/ml (<50)
[2022-09-20 13:19] LABS: Cocaine Screen,Urine Negative ng/ml (<300); Methadone Screen,Urine Negative ng/ml (<300)
[2022-09-20 13:20] LABS: Opiate Screen,Urine Positive ng/ml (<300); Phencyclidine Screen,Urine Negative ng/ml (<25)
== END ==
PROVIDERS: PCP Emergency Medicine; Visit Provider Emergency Medicine
DX: Z79.899 Other long term (current) drug therapy (principal)
CPT/HCPCS: 80305

== ENCOUNTER → 2022-10-20 16:36 | Outpatient (CLI) | payer OTHER, SELFPAY ==
[2022-10-20 13:49] LABS: Amphetamine/Metha Screen,Urine Negative ng/ml (<1000)
[2022-10-20 13:50] LABS: Barbiturates Screen,Urine Negative ng/ml (<200)
[2022-10-20 13:52] LABS: Benzodiazepines Screen,Urine Negative ng/ml (<200); Cannabinoid Screen,Urine Negative ng/ml (<50)
[2022-10-20 13:53] LABS: Cocaine Screen,Urine Negative ng/ml (<300)
[2022-10-20 13:54] LABS: Methadone Screen,Urine Negative ng/ml (<300); Opiate Screen,Urine Positive ng/ml (<300)
[2022-10-20 13:55] LABS: Phencyclidine Screen,Urine Negative ng/ml (<25)
== END ==
PROVIDERS: PCP Emergency Medicine; Visit Provider Emergency Medicine
DX: M25.551 Pain in right hip (principal); M25.552 Pain in left hip
CPT/HCPCS: 80305

== ENCOUNTER → 2022-11-24 12:53 | Outpatient (POV) | payer OTHER, SELFPAY ==
--- NOTE | 2022-11-24 12:55 | EXP.PAIN.SOA ---
[facility] Pain Management SOAP Note Subjective:: Patient is a pleasant 52-year-old male who presents today for 1 month follow-up. We are currently treating the patient for degenerative disc disease of lumbar spine with lumbar radiculopathy symptoms, lumbar spinal stenosis, shoulder pain, hip pain, knee pain, elbow pain. Today he rates his pain a 6 out of 10. Patient denies any new trauma or injury from her last appointment. At our last visit we did discuss with the patient that he may benefit from lumbar epidural steroid injection or even a intrathecal pain pump trial in the future however he wanted to discuss this with Dr. Coyne's office and his neurosurgeon. Patient does state today that he does have a follow-up appointment with his neurosurgeon on December 24. Patient does state that he did go to his pain doctor in [place] who reviewed over his previous MRI that we had and was recommending that he needs back and hip surgery however did do a lumbar epidural that helped for a day and a half. Patient does state that he has been increasing his activity and exercising and 1 day following the injection he got about 6 laps and when he had a horrible burning sensation into his upper thighs. Patient does state that this went away 20 minutes later. Patient does continue to state that he is having increased pain in his left shoulder as well as his lower legs and toes. Patient denies any previous imaging of his shoulder. He is currently managed [place] 7.5 mg twice a day and gabapentin 800 mg from an outside provider. Patient denies any side effects from this medication. His Jose is [phone]. Its been reviewed and appropriate. Review of Systems: General: No recent weight changes, no fever, no sleep disturbances Respiratory: No cough, no shortness of air, no recurring pulmonary infections Cardiovascular/peripheral vascular: No chest pain, no palpitations, no edema, no shortness of breath Gastrointestinal: No new onset incontinence, normal bowel movements reported Genitourinary: No new onset incontinence Musculoskeletal: Left shoulder pain, low back pain, lower leg pain Psychiatric: [Normal mood/affect] Neurological: [Denies weakness in extremities], [denies balance issues] Objective:: Physical Exam: General: Alert and oriented x3, no acute distress, pleasant and cooperative Lungs: Respirations even and unlabored, symmetrical chest expansion Eyes: PERRL Musculoskeletal: Flexion and extension of left shoulder somewhat guarded secondary to pain Neurological: Speech clear, no gross sensory deficit Assessment:: Degenerative disc disease of lumbar spine with lumbar radiculopathy symptoms, lumbar spinal stenosis, shoulder pain, hip pain, knee pain, elbow pain Plan:: Patient is experiencing worsening pain in his left shoulder with limited range of motion. I have discussed with the patient that I will order x-ray imaging of his left shoulder and proceed forward with MRI without contrast. I have also counseled the patient that I do believe he would still benefit from a intrathecal pain pump trial or if he chooses the spinal cord stimulator trial. I have counseled the patient that I do find it beneficial for us to hear what his neurosurgeon is recommending before proceeding forward with his plan of care regarding his low back and leg pain. Educational handouts were given on the SCS during today's visit. Patient will return to clinic in 1 month following his left shoulder imaging for reevaluation of symptoms and plan of care. Patient has been instructed to contact the clinic with any concerns before the next appointment. Dr. Payne has reviewed this note and agrees with this plan of care. This note was dictated using voice recognition software and make contain errors or omissions. [facility] Disclaimer: The information contained in this section may have been updated after the patient was seen, as this information can be updated by other users. Medical History (Reviewed 0
[2022-11-24 13:29] VITALS: BP 132/89; PULSE 112; RESP 20; O2SAT 97; BMI 31.1
== END ==
PROVIDERS: Visit Provider Nurse Practitioner Family
DX: M51.16 Intervertebral disc disorders with radiculopathy, lumbar region (principal); M47.26 Other spondylosis with radiculopathy, lumbar region; M25.519 Pain in unspecified shoulder; M25.559 Pain in unspecified hip; M25.569 Pain in unspecified knee; M25.529 Pain in unspecified elbow
CPT/HCPCS: 99212; G0463

== ENCOUNTER → 2022-11-25 09:01 | Outpatient (CLI) | payer OTHER, SELFPAY ==
--- NOTE | 2022-11-25 09:09 | XR_ITS ---
FINAL REPORT CLINICAL HISTORY: SHOULDER PAIN COMPARISON: 02/03/2022 FINDINGS: Left shoulder Two views were obtained. There is no acute fracture or dislocation. The joint spaces appear normal. No soft tissue abnormality is identified. IMPRESSION: No acute process. Reviewed, Interpreted and Dictated by Epifanio Chong MD Transcribed by Jennie Yin Authenticated and . [facility]
== END ==
PROVIDERS: PCP Emergency Medicine; Visit Provider Nurse Practitioner Family
DX: M25.512 Pain in left shoulder (principal)
CPT/HCPCS: 73030

== ENCOUNTER → 2022-12-08 08:28 | Outpatient (CLI) | payer OTHER, SELFPAY ==
[2022-11-19 18:48] LABS: Amphetamine/Metha Screen,Urine Negative ng/ml (<1000)
[2022-11-19 18:49] LABS: Barbiturates Screen,Urine Negative ng/ml (<200); Benzodiazepines Screen,Urine Negative ng/ml (<200)
[2022-11-19 18:50] LABS: Cannabinoid Screen,Urine Positive ng/ml (<50)
[2022-11-19 18:54] LABS: Cocaine Screen,Urine Negative ng/ml (<300)
[2022-11-19 18:55] LABS: Methadone Screen,Urine Negative ng/ml (<300)
[2022-11-19 18:56] LABS: Opiate Screen,Urine Positive ng/ml (<300)
[2022-11-19 18:57] LABS: Phencyclidine Screen,Urine Negative ng/ml (<25)
== END ==
PROVIDERS: PCP Emergency Medicine; Visit Provider Emergency Medicine
DX: M25.551 Pain in right hip (principal); M25.552 Pain in left hip
CPT/HCPCS: 80305

== ENCOUNTER 2022-12-08 11:55 | Outpatient (CLI) | payer OTHER, SELFPAY ==
[2022-12-08 11:59] VITALS: BMI 33.4
[2022-12-08 12:17] LABS: Hematocrit 56.9 % (42.0-52.0)
[2022-12-08 12:32] LABS: Hemoglobin 19.1 g/dL (14.1-18.0)
--- NOTE | 2022-12-08 13:43 | PC.NURSE ---
1202- H&H drawn per MD order via butterfly needle in right ac. needle removed and coban applied. 1245- 20g IV started in left ac and phlebotomy started by Dulce Maria Boggs from lab. 250ml of whole blood was drawn off. phlebotomy ended at 1300. IV removed and coban applied. pt tolerated well. post-BP, 148/94, HR 84. Pt f/u scheduled in 8 weeks per MD order, 02/02/23.
== END 2022-12-08 13:05 | disposition home or self-care (01) ==
LOC: INF 11:55
PROVIDERS: PCP Emergency Medicine; Visit Provider Urology
DX: D75.1 Secondary polycythemia (principal)
CPT/HCPCS: 36415; 85014; 85018; 99195

== ENCOUNTER → 2022-12-20 12:57 | Outpatient (POV) | payer OTHER, SELFPAY ==
--- NOTE | 2022-12-20 14:55 | EXP.PAIN.SOA ---
[facility] Pain Management SOAP Note Subjective:: Patient is a pleasant 52-year-old male who presents today for follow-up of left shoulder x-rays. We are currently treating the patient for degenerative disc disease of lumbar spine with lumbar radiculopathy symptoms, lumbar spinal stenosis, shoulder pain, hip clinic, knee pain, elbow pain. Today he rates his pain a 7 out of 10. Patient denies any new trauma or injury. He states he continues to have pain at multiple locations on a daily basis. He does state that he has a evaluation with the neurosurgeon that our office sent the referral to on this coming up Tuesday. Patient does state that it is a Dr. Muñiz that does deal with multiple areas of pain. At our last visit we had discussed in future that he may benefit from a spinal cord stimulator or a pain pump trial. Patient does state that he is still very interested in these options. He is currently managed with gabapentin 800 mg 3 times a day, [place] 7.5 mg twice a day and testosterone therapy from outside providers. His Jose is [phone]. Its been reviewed and appropriate. Review of Systems: General: No recent weight changes, no fever, no sleep disturbances Respiratory: No cough, no shortness of air, no recurring pulmonary infections Cardiovascular/peripheral vascular: No chest pain, no palpitations, no edema, no shortness of breath Gastrointestinal: No new onset incontinence, normal bowel movements reported Genitourinary: No new onset incontinence Musculoskeletal: Low back pain, left shoulder pain Psychiatric: [Normal mood/affect] Neurological: [Denies weakness in extremities], [denies balance issues] Objective:: Physical Exam: General: Alert and oriented x3, no acute distress, pleasant and cooperative Lungs: Respirations even and unlabored, symmetrical chest expansion Eyes: PERRL Musculoskeletal: Flexion and extension of left shoulder, lumbar [spine] somewhat guarded secondary to pain, [antalgic gait noted] Neurological: Speech clear, no gross sensory deficit Assessment:: Degenerative disc disease of lumbar spine with lumbar radiculopathy symptoms, lumbar spinal stenosis, elbow pain, shoulder pain, knee pain, hip pain, chronic pain syndrome Plan:: Patient continues to experience significant pain in his low back as well as his left shoulder with limited range of motion. I have reviewed over his x-ray imaging that did state no acute findings. I have counseled the patient that I will proceed forward with ordering an MRI without contrast due to his continued limited range of motion and constant pain. We will follow-up with the patient in 1 month for reevaluation of symptoms and plan of care. I have discussed with the patient that we will review over the neurosurgeons recommendations at his next visit and discuss the possibility of a trial in the future for his chronic pain. Patient has been instructed to contact the clinic with any concerns before the next appointment. Dr. Payne has reviewed this note and agrees with this plan of care. This note was dictated using voice recognition software and make contain errors or omissions. [facility] Disclaimer: The information contained in this section may have been updated after the patient was seen, as this information can be updated by other users. Medical History (Updated 12/15/22 @ 13:50 by LIS Jones) Acute otitis media with effusion of left ear Arthritis Bulging disc Bursitis Carpal tunnel syndrome Chronic pain Heart murmur History of back pain History of COVID-19 History of diverticulitis Hypertension 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 of nasal cavity Nerve compression Obstructive sleep apnea syndrome Overweight (BMI 25.0-29.9) Perforated nasal septum Pulmonary HTN Sinus headache Sinus problem Sleep apnea Surgical History H/O arthroscopy History of cholecystectomy History of h
[2022-12-20 15:25] VITALS: BP 156/100; PULSE 98; RESP 18; O2SAT 95; BMI 30.9
== END ==
PROVIDERS: PCP Emergency Medicine; Visit Provider Nurse Practitioner Family
DX: M51.16 Intervertebral disc disorders with radiculopathy, lumbar region (principal); M48.061 Spinal stenosis, lumbar region without neurogenic claudication; M25.512 Pain in left shoulder; M25.529 Pain in unspecified elbow; M25.569 Pain in unspecified knee; M25.559 Pain in unspecified hip; G89.4 Chronic pain syndrome
CPT/HCPCS: 99212; G0463

== ENCOUNTER → 2022-12-30 09:37 | Outpatient (CLI) | payer OTHER, SELFPAY ==
--- NOTE | 2022-12-30 09:47 | MR_ITS ---
FINAL REPORT CLINICAL HISTORY: LEFT SHOUDER PAIN FINDINGS: Multiplanar MR imaging of the left shoulder was performed without contrast. There is a full-thickness tear of the posterior footprint of the supraspinatus tendon. In addition, there is an intrasubstance tear of the distal subscapularis tendon involving greater than 50% of the tendon thickness. There are mild degenerative changes in the acromioclavicular joint. A small amount of abnormal fluid is seen in the subacromial/subdeltoid bursa. The glenoid labrum is intact. There is medial dislocation of the long head of the biceps tendon. A small glenohumeral joint effusion is seen. There is no evidence of fracture or dislocation. The musculature is intact. There is no evidence of soft tissue mass. IMPRESSION: Full-thickness tear of the posterior footprint of the supraspinatus tendon. Intrasubstance tear of the distal subscapularis tendon involving greater than 50% of the tendon thickness. Medial dislocation of the long head of the biceps tendon. Mild degenerative changes in the acromioclavicular joint with mild subacromial/subdeltoid bursitis. Reviewed, Interpreted and Dictated by Cristopher Lucas III, MD Transcribed by Lucie Muahmmad Authenticated and [facility]
== END ==
PROVIDERS: PCP Emergency Medicine; Visit Provider Nurse Practitioner Family
DX: M25.512 Pain in left shoulder (principal)
CPT/HCPCS: 73221

== ENCOUNTER → 2023-01-19 15:46 | Outpatient (CLI) | payer OTHER, SELFPAY ==
[2023-01-19 16:50] LABS: Amphetamine/Metha Screen,Urine Negative ng/ml (<1000)
[2023-01-19 16:51] LABS: Barbiturates Screen,Urine Negative ng/ml (<200); Benzodiazepines Screen,Urine Negative ng/ml (<200)
[2023-01-19 16:52] LABS: Cannabinoid Screen,Urine Negative ng/ml (<50)
[2023-01-19 16:53] LABS: Cocaine Screen,Urine Negative ng/ml (<300); Methadone Screen,Urine Negative ng/ml (<300)
[2023-01-19 16:54] LABS: Opiate Screen,Urine Positive ng/ml (<300)
[2023-01-19 16:55] LABS: Phencyclidine Screen,Urine Negative ng/ml (<25)
== END ==
PROVIDERS: PCP Emergency Medicine; Visit Provider Emergency Medicine
DX: Z79.899 Other long term (current) drug therapy (principal)
CPT/HCPCS: 80305

== ENCOUNTER → 2023-01-20 13:05 | Outpatient (POV) | payer OTHER, SELFPAY ==
--- NOTE | 2023-01-20 13:21 | EXP.PAIN.SOA ---
[facility] Pain Management SOAP Note Subjective:: Patient is a pleasant 52-year-old male who presents today for 1 month follow-up. We are currently treating the patient for degenerative disc disease of lumbar spine with lumbar radiculopathy symptoms, lumbar spinal stenosis, shoulder pain, hip pain, knee pain, elbow pain. Today he rates his pain a 7 out of 10. He denies any new changes or any new injuries from our last visit. He does state that he continues to have an aching, throbbing sensation in his left shoulder as well as pain throughout his low back with radiating symptoms down his right leg. He does describe this as an aching, throbbing sensation with numbness and tingling all down his entire right leg. He does state the pain interferes with his ability perform activities of daily living such as cooking and cleaning. He did go see his neurosurgeon since our last visit and stated that the doctor would like for us to try a transforaminal epidural. He stated that future back surgery may be a possibility however the doctor wanted to see how this injection did. He also states he did see a Dr. Donovan at for his shoulder however they did not get a good copy of imaging related to his shoulder MRI. He states they did end up doing an injection in his shoulder that helped for approximately 1 day however he did go home and increase his activity which did cause significant worsening pain. He states he is scheduled for a another repeat shoulder injection. He states that overall plan with this physician is if these injections do help this is where they may possibly do future surgery. He does state he would like if we are able to communicate with both of these physicians regarding our findings. He is currently managed with gabapentin 800 mg 3 times a day, [place] 7.5 mg twice a day and testosterone therapy from outside providers. His Jose has been reviewed and appropriate. Review of Systems: General: No recent weight changes, no fever, no sleep disturbances Respiratory: No cough, no shortness of air, no recurring pulmonary infections Cardiovascular/peripheral vascular: No chest pain, no palpitations, no edema, no shortness of breath Gastrointestinal: No new onset incontinence, normal bowel movements reported Genitourinary: No new onset incontinence Musculoskeletal: Low back pain, left shoulder pain Psychiatric: [Normal mood/affect] Neurological: [Denies weakness in extremities], [denies balance issues] Objective:: Physical Exam: General: Alert and oriented x3, no acute distress, pleasant and cooperative Lungs: Respirations even and unlabored, symmetrical chest expansion Eyes: PERRL Musculoskeletal: Flexion and extension of lumbar [spine] somewhat guarded secondary to pain, [antalgic gait noted] positive left leg raise with decreased sensation and decreased reflexes Neurological: Speech clear, no gross sensory deficit\ FINAL REPORT CLINICAL HISTORY: back pain LEFT SIDED LOWER BACK PAIN WITH LEFT LEG PAIN, TINGLING, NUMBNESS, AND BURNING SINCE 2017 FINDINGS: Multiplanar MR imaging of the lumbar spine was performed without contrast. On the sagittal T2-weighted images, decreased signal is seen at T12-L1, L3-4, L4-5 and L5-S1. The vertebral alignment is normal. There is no evidence of fracture. No bony mass is identified. The conus is seen at approximately the L1 level and has an unremarkable appearance. T12-L1: Moderate diffuse disc bulge with flattening of the anterior aspect of the thecal sac. There is mild central canal stenosis. L1-2: There is no significant canal stenosis or neural foraminal narrowing. L2-3: Right posterolateral disc protrusion and annular tear with moderate right neural foraminal narrowing. L3-4: Mild diffuse disc bulge with mild bilateral neural foraminal narrowing. L4-5: Mild diffuse disc bulge with mild bilateral neural foraminal narrowing. L5-S1: Moderate midline disc protrusion with anterior indention of the thecal sac.
[2023-01-20 13:48] VITALS: BP 122/79; PULSE 112; RESP 19; O2SAT 94; BMI 30.7
== END ==
PROVIDERS: PCP Emergency Medicine; Visit Provider Nurse Practitioner Family
DX: M51.16 Intervertebral disc disorders with radiculopathy, lumbar region (principal); M48.061 Spinal stenosis, lumbar region without neurogenic claudication; M25.512 Pain in left shoulder; M25.559 Pain in unspecified hip; M25.569 Pain in unspecified knee; M25.529 Pain in unspecified elbow
CPT/HCPCS: 99212; G0463

== ENCOUNTER 2023-02-01 10:35 | Day surgery (SDC) | payer OTHER, SELFPAY ==
[2023-02-01 10:54] VITALS: BP 125/82; PULSE 101; RESP 18; TEMP 36.3; O2SAT 99; BMI 30.7
[2023-02-01 10:59] VITALS: BP 148/91; PULSE 104; RESP 20; O2SAT 95
[2023-02-01 11:03] VITALS: BP 145/91; PULSE 103; O2SAT 97
--- NOTE | 2023-02-01 11:06 | EXP.PAIN.PRO ---
Procedure Date: 02/01/23 Time: 10:55 Anesthesiologist:: Derek Chaves CRNA Complications:: None Pre-procedure Diagnosis:: Degenerative disc lumbar spine multilevels. Lumbar radiculopathy. Lumbar disc bulge L4-5, L5-S1. Lumbar spinal stenosis. Post-procedure Diagnosis:: Same. Indications for Procedure:: Patient is a very pleasant 52-year-old male who comes our clinic today for a left L4-5 and L5-S1 transforaminal epidural steroid injection. Patient describes low back pain as well as left hip and leg radicular symptoms as constant, dull, aching. He rates his pain 7/10. Procedure Details:: Details of the procedure were explained to the patient. The patient was taken the procedure room placed in the prone position. The area of the lumbar spine was cleansed using chlorhexidine as a cleansing solution. At this time using fluoroscopy guidance markers were placed on the left lateral border of the L4 and L5 vertebral body. The skin and subcutaneous tissue was anesthetized using 1% lidocaine and 25-gauge needle. At this time using a 22-gauge 3-1/2 inch spinal needle the left upper one third of the L4-5 foramen was accessed. The same was done at the left L5-S1 foramen. Needle positions were confirmed and a lateral view using fluoroscopy and contrast dye. At this time 1 cc of 1% lidocaine +20 mg of Depo-Medrol was injected at each level after negative aspiration. Sandwich were removed. Band-Aid applied. Patient tolerated the procedure without difficulty. There are no complications. Plan and Disposition:: Patient was discharged without incident.
[2023-02-01 11:15] VITALS: BP 132/90; PULSE 101; RESP 18; O2SAT 99
== END 2023-02-01 11:15 | disposition home or self-care (01) ==
PROVIDERS: PCP Emergency Medicine; Visit Provider Nurse Anesthetist, Certified Registered
DX: M51.16 Intervertebral disc disorders with radiculopathy, lumbar region (principal); M51.26 Other intervertebral disc displacement, lumbar region; M48.061 Spinal stenosis, lumbar region without neurogenic claudication
CPT/HCPCS: 64483; 64484; J1030

== ENCOUNTER 2023-02-02 12:57 | Outpatient (CLI) | payer OTHER, SELFPAY ==
[2023-02-02 13:00] VITALS: BMI 33.4
--- NOTE | 2023-02-02 13:02 | PC.NURSE ---
1302-collected labs via venipuncture stick with butterfly needle in left ac;pt will wait for labs; if hgb >16 pt to get therapeutic phlebotomy 250ml drawn off.
[2023-02-02 13:09] LABS: Hematocrit 52.3 % (42.0-52.0); Hemoglobin 17.8 g/dL (14.1-18.0)
[2023-02-02 13:39] VITALS: BP 142/84; PULSE 103; RESP 18; O2SAT 96
[2023-02-02 13:50] VITALS: BP 130/88; PULSE 106; RESP 18; O2SAT 96
== END 2023-02-02 13:50 | disposition home or self-care (01) ==
LOC: INF 12:57
PROVIDERS: PCP Emergency Medicine; Visit Provider Urology
DX: R71.8 Other abnormality of red blood cells (principal)
CPT/HCPCS: 36415; 85014; 85018; 99195

== ENCOUNTER → 2023-02-16 09:55 | Outpatient (POV) | payer OTHER, SELFPAY ==
--- NOTE | 2023-02-16 10:02 | EXP.PAIN.SOA ---
[facility] Pain Management SOAP Note Subjective:: Patient is a pleasant 52-year-old male who presents today for follow-up of left transforaminal epidural steroid injection L4-L5 and L5-S1 on 02/01/2023. We are currently treating the patient for degenerative disc disease of lumbar spine with lumbar radiculopathy symptoms, lumbar spinal stenosis, shoulder pain, hip pain, knee pain, elbow pain. Today he rates his pain a 5 out of 10. Patient states the injection did provide significant improvement of at least 60-70% up until the last couple of days. He states it did make it easier to function while it was helping. He does state that he is back to his baseline today with pain in his low back and radiating down his entire left leg. Patient does describe this as an aching sensation with sharp shooting pains and tingling. He states the pain does interfere with his ability to perform activities of daily living such as cooking and cleaning. He does state that he is continuing to see his orthopedic shoulder doctor who is doing injections with the possibility of shoulder surgery in the future. He also states he has an upcoming appointment with neurosurgery again and that they are wanting to do additional imaging and that surgery may be an option here as well. Patient also sees he is seeing another doctor for his hip that is upcoming and that he is unsure of replacement as an option as well. He is currently managed with gabapentin 800 mg 3 times a day, [place] 7.5 mg twice a day and testosterone therapy from outside providers. Patient is currently in physical therapy and has been going for several weeks. His Jose has been reviewed and appropriate. Review of Systems: General: No recent weight changes, no fever, no sleep disturbances Respiratory: No cough, no shortness of air, no recurring pulmonary infections Cardiovascular/peripheral vascular: No chest pain, no palpitations, no edema, no shortness of breath Gastrointestinal: No new onset incontinence, normal bowel movements reported Genitourinary: No new onset incontinence Musculoskeletal: Low back pain, left shoulder pain Psychiatric: [Normal mood/affect] Neurological: [Denies weakness in extremities], [denies balance issues] Objective:: Physical Exam: General: Alert and oriented x3, no acute distress, pleasant and cooperative Lungs: Respirations even and unlabored, symmetrical chest expansion Eyes: PERRL Musculoskeletal: Flexion and extension of lumbar [spine] somewhat guarded secondary to pain, [antalgic gait noted] positive left leg raise with decreased sensation to light touch and decreased reflexes Neurological: Speech clear, no gross sensory deficit Assessment:: degenerative disc disease of lumbar spine with lumbar radiculopathy symptoms, lumbar spinal stenosis, shoulder pain, hip pain, knee pain, elbow pain Plan:: Patient did have significant improvement of 60 to 70% relief lasting approximately a week and a half from his last transforaminal epidural. Today he is experiencing worsening pain in his low back and left leg with limited range of motion. Patient did have a positive left leg raise with decreased sensation to light touch and decreased reflexes during today's exam. I have discussed with the patient that he may benefit from repeat transforaminal injection. Risk and benefits were discussed with the patient he would like to proceed forward with this plan of care. I have counseled the patient due to seeing several orthopedic doctors for possible surgical intervention I do recommend he follow-up with these providers and confirm that there is no issues with this steroid injection and possible upcoming surgeries. I have counseled him that he can call our office and postpone this injection or cancel it if needed. Patient is not on any blood thinners. Patient has tried and failed conservative therapy such as oral medications, heat and ice, topicals, physical therapy, at home stretching exercise for longer than 12 weeks.
[2023-02-16 10:29] VITALS: BP 126/86; PULSE 112; RESP 19; O2SAT 93; BMI 30.7
== END ==
PROVIDERS: PCP Emergency Medicine; Visit Provider Nurse Practitioner Family
DX: M51.16 Intervertebral disc disorders with radiculopathy, lumbar region (principal); M48.061 Spinal stenosis, lumbar region without neurogenic claudication; M25.519 Pain in unspecified shoulder; M25.559 Pain in unspecified hip; M25.569 Pain in unspecified knee; M25.529 Pain in unspecified elbow
CPT/HCPCS: 99212; G0463

== ENCOUNTER 2023-03-10 14:00 | Outpatient (RCR) | payer OTHER, SELFPAY | END 2023-03-10 15:20 | disposition home or self-care (01) | LOC: OT 14:00 | PROVIDERS: PCP Emergency Medicine; Visit Provider Physician Assistant Medical | DX: M77.11 Lateral epicondylitis, right elbow (principal); M77.12 Lateral epicondylitis, left elbow | CPT/HCPCS: 97010; 97014; 97035; 97110; 97140; 97165; 97530; G0283 ==

== ENCOUNTER 2023-03-15 11:16 | Day surgery (SDC) | payer OTHER, SELFPAY ==
[2023-03-15 11:25] VITALS: BP 136/90; PULSE 116; TEMP 36.7; O2SAT 94; BMI 32.3
[2023-03-15 11:31] VITALS: BP 158/102; PULSE 111; RESP 18; O2SAT 95
[2023-03-15] MEDS: LIDOCAINE 1% 5ML PF VIAL 5 ML (11:31)
[2023-03-15 11:33] VITALS: BP 158/102; PULSE 108; RESP 18; O2SAT 94
--- NOTE | 2023-03-15 11:37 | EXP.PAIN.PRO ---
Procedure Date: 03/15/23 Time: 11:25 Anesthesiologist:: Derek Chaves CRNA Complications:: None Pre-procedure Diagnosis:: Degenerative disc lumbar spine multilevels. Lumbar radiculopathy. Disc bulge lumbar spine L4-5, L5-S1. Post-procedure Diagnosis:: Same. Indications for Procedure:: Patient is a very pleasant 52-year-old male comes our clinic today for repeat L4-5, L5-S1 left transforaminal epidural steroid injection. Patient reports left lumbar back pain as well as left hip and leg radicular symptoms he describes as constant, dull, aching. He rates his pain 6/10. Procedure Details:: Details of the procedure were explained to the patient. The patient was taken the procedure room placed in the prone position. The area of the lumbar spine was cleansed using chlorhexidine as a cleansing solution. At this time using fluoroscopy guidance markers were placed on the left lateral border of the L4 and L5 vertebral body. The skin and subcutaneous tissue was anesthetized using 1% lidocaine and 25-gauge needle. At this time using a 22-gauge 3-1/2 inch spinal needle the left upper one third of the L4-5 foramen was accessed. The same was done at the left L5-S1 foramen. Needle positions were confirmed and a lateral view using fluoroscopy and contrast dye. At this time 1 cc of 1% lidocaine +20 mg of Depo-Medrol was injected at each level after negative aspiration. Eccles were removed. Band-Aid applied. Patient tolerated the procedure without difficulty. There are no complications. Plan and Disposition:: Patient was discharged without incident.
[2023-03-15 11:40] VITALS: BP 129/92; PULSE 102; O2SAT 95
== END 2023-03-15 11:40 | disposition home or self-care (01) ==
PROVIDERS: PCP Emergency Medicine; Visit Provider Nurse Anesthetist, Certified Registered
DX: M51.16 Intervertebral disc disorders with radiculopathy, lumbar region (principal); M51.26 Other intervertebral disc displacement, lumbar region
CPT/HCPCS: 64483; 64484; J1030

== ENCOUNTER → 2023-03-18 08:23 | Outpatient (CLI) | payer OTHER, SELFPAY ==
[2023-03-18 18:15] LABS: Basophils # 0.1 K/mm3 (0-0.2); Basophils % 0.9 % (0.1-2.0); Eosinophils # 0.1 K/mm3 (0.0-0.4); Hematocrit 56.9 % (42.0-52.0); Lymphocytes # 3.2 K/mm3 (0.7-4.5); Mean Corpuscular HGB Conc 32.6 g/dL (31.8-35.4); Mean Corpuscular Hemoglobin 33.9 pg (27.0-31.2); Mean Platelet Volume 8.8 fl (7.4-10.4); Monocytes # 1.2 K/mm3 (0.1-1.0); Neutrophils # 6.9 K/mm3 (1.8-7.8); Neutrophils % 60.1 % (37.0-80.0); Platelet Count 414 K/mm3 (142-424); Red Blood Count 5.47 M/mm3 (4.60-6.20); Red Cell Distribution Width 13.9 % (11.5-17.5); White Blood Count 11.5 K/mm3 (4.8-10.8)
[2023-03-18 18:25] LABS: Alanine Aminotransferase 51 U/L (12-78); Albumin Level 5.1 g/dl (3.5-5.0); Albumin/Globulin Ratio 1.9 (1.1-1.8); Alkaline Phosphatase 87 U/L (38-126); Anion Gap 16.4 mEq/L (5-15); Aspartate Amino Transferase 54 U/L (17-59); Bilirubin,Total 0.6 mg/dl (0.2-1.3); Blood Urea Nitrogen 23 mg/dl (9-20); Calcium 9.3 mg/dl (8.4-10.2); Carbon Dioxide 20 mmol/L (22.0-30.0); Chloride 95 mmol/L (98-107); Cholesterol 239 mg/dl (140-200); Estimated Glomerular Filt Rate 79 ml/min (>60); GFR (African American) 95 ML/MIN (>60); Globulin 2.7 g/dL (1.3-3.2); Glucose 90 mg/dl (74-100); HDL Cholesterol 34 mg/dl (40-60); Potassium 5.4 mmoL/L (3.5-5.1); Sodium 126 mmol/L (136-145); Total Protein,Serum 7.8 g/dl (6.3-8.2); Triglycerides 287 mg/dl (30-150); VLDL Cholesterol 57 mg/dL (0-40)
[2023-03-18 18:35] LABS: Direct LDL Cholesterol 146.92 mg/dL (100-129)
[2023-03-18 18:41] LABS: Hemoglobin 18.7 g/dL (14.1-18.0)
[2023-03-18 19:57] LABS: Barbiturates Screen,Urine Negative ng/ml (<200)
[2023-03-18 19:58] LABS: Benzodiazepines Screen,Urine Negative ng/ml (<200)
[2023-03-18 19:59] LABS: Amphetamine/Metha Screen,Urine Negative ng/ml (<1000); Methadone Screen,Urine Negative ng/ml (<300)
[2023-03-18 20:00] LABS: Cannabinoid Screen,Urine Negative ng/ml (<50)
[2023-03-18 20:01] LABS: Cocaine Screen,Urine Negative ng/ml (<300); Opiate Screen,Urine Positive ng/ml (<300)
[2023-03-18 20:02] LABS: Phencyclidine Screen,Urine Negative ng/ml (<25)
[2023-03-18 20:25] LABS: Creatinine,Urine Random 38 mg/dL (Not Estab.); Microalbumin/Creatinine Ratio 18.4
== END ==
LOC: LAB.DROPOF 03-19 08:24
PROVIDERS: PCP Internal Medicine; Visit Provider Internal Medicine
DX: R53.83 Other fatigue (principal); Z79.899 Other long term (current) drug therapy; I10 Essential (primary) hypertension
CPT/HCPCS: 80053; 80061; 80307; 82043; 82570; 85025

== ENCOUNTER → 2023-03-25 14:33 | Outpatient (CLI) | payer OTHER, SELFPAY ==
--- NOTE | 2023-03-25 14:42 | MR_ITS ---
FINAL REPORT CLINICAL HISTORY: RADICULOPATHY. LUMBOSACRAL REGION. COMPARISON: 06/18/2022 FINDINGS: Multiplanar MR imaging of the lumbar spine was performed without contrast. On the sagittal T2-weighted images, there is abnormal decreased signal L2-3 through L5-S1. The vertebrae are of normal height. The vertebral alignment is normal. No compression deformities. T12-L1: Izju-ku-udbrnuge diffuse disc bulge. Mild spinal canal compromise. L1-2: There is no significant canal stenosis or neural foraminal narrowing. L2-3: There is no significant canal stenosis or neural foraminal narrowing. L3-4: Small posterolateral protrusions. Mild bilateral neural foraminal narrowing. L4-5: There is no significant canal stenosis or neural foraminal narrowing. L5-S1: Mild diffuse disc bulge. Fpau-ix-jxnfxqzz bilateral neural foraminal narrowing. IMPRESSION: Spinal canal compromise most evident at T12-L1. Neural foraminal narrowing most evident at L5-S1. Reviewed, Interpreted and Dictated by Epifanio Chong MD Transcribed by Kristen Saba Authenticated and [facility]
== END ==
LOC: RAD 14:34
PROVIDERS: PCP Emergency Medicine
DX: M54.17 Radiculopathy, lumbosacral region (principal)
CPT/HCPCS: 72148; 76376

== ENCOUNTER 2023-04-06 12:50 | Outpatient (CLI) | payer OTHER, SELFPAY ==
[2023-04-06 12:54] VITALS: BMI 31.2
[2023-04-06 13:11] LABS: Hematocrit 57.3 % (42.0-52.0)
--- NOTE | 2023-04-06 13:11 | PC.NURSE ---
04/06/2023 1305 pt presents for labs to be checked and possible phlebotomy. Venipuncture performed to pt's rt hand using a butterfly access needle x 1 stick and blood obtained for labs as ordered per md. Site secured once needle was withdrawn using 2x2 gauze and coban. Specimen sent to lab for analysis. Pt to await results to determine if phlebotomy is needed.
[2023-04-06 13:34] LABS: Hemoglobin 19.2 g/dL (14.1-18.0)
[2023-04-06 13:58] VITALS: BP 122/83; PULSE 102; RESP 18; TEMP 36.7; O2SAT 95
[2023-04-06 14:20] VITALS: BP 139/93; PULSE 103; RESP 18; O2SAT 96
== END 2023-04-06 14:20 | disposition home or self-care (01) ==
LOC: INF 12:51
PROVIDERS: PCP Internal Medicine; Visit Provider Urology
DX: D75.1 Secondary polycythemia (principal)
CPT/HCPCS: 36415; 85014; 85018; 99195

== ENCOUNTER 2023-04-13 14:57 | Outpatient (CLI) | payer OTHER, SELFPAY ==
--- NOTE | 2023-04-13 14:58 | MR_ITS ---
FINAL REPORT CLINICAL HISTORY: NECK PAIN. BILATERAL ARM PAIN COMPARISON: None FINDINGS: Multiplanar MR imaging of the cervical spine was performed without contrast. On the sagittal T2-weighted images, disc degeneration is seen at multiple levels. There is no evidence of fracture. The vertebral alignment is normal. The cervical spinal cord has an unremarkable appearance without evidence of mass, edema or syrinx. No significant canal stenosis is identified. The cervicomedullary junction is normal. C2-3: A small central disc protrusion is present that mildly indents the thecal sac. There is no significant canal stenosis or neural foraminal narrowing. C3-4: A small central disc protrusion is present that mildly indents the thecal sac. There is no significant canal stenosis or neural foraminal narrowing. C4-5: An annular bulge is present with a small central disc protrusion that mildly indents the thecal sac. There is mild right neural foraminal narrowing. C5-6: An annular bulge is present with small uncovertebral osteophytes and mild bilateral neural foraminal narrowing. C6-7: Small disc osteophyte complex is present with mild right neural foraminal narrowing. C7-T1: A small central disc protrusion is present. There is no significant canal stenosis or neural foraminal narrowing. IMPRESSION: Mild multilevel degenerative change as described, with mild multilevel foraminal narrowing and no significant canal stenosis. Reviewed, Interpreted and Dictated by Cristopher Lucas III, MD Transcribed by Brianna Webster Authenticated and [facility]
== END 2023-04-13 23:59 ==
LOC: RAD 14:58
PROVIDERS: PCP Emergency Medicine; Visit Provider Physician Assistant Medical
DX: M54.2 Cervicalgia (principal)
CPT/HCPCS: 72141; 76376

== ENCOUNTER 2023-05-03 20:47 | Outpatient (CLI) | payer OTHER, SELFPAY ==
[2023-05-03 18:57] LABS: Alanine Aminotransferase 49 U/L (12-78); Albumin Level 4.7 g/dl (3.5-5.0); Alkaline Phosphatase 94 U/L (38-126); Anion Gap 16.6 mEq/L (5-15); Aspartate Amino Transferase 32 U/L (17-59); Bilirubin,Total 0.5 mg/dl (0.2-1.3); Blood Urea Nitrogen 18 mg/dl (9-20); Calcium 10.2 mg/dl (8.4-10.2); Carbon Dioxide 21 mmol/L (22.0-30.0); Chloride 104 mmol/L (98-107); Estimated Glomerular Filt Rate 102 ml/min (>60); GFR (African American) 123 ML/MIN (>60); Globulin 2.4 g/dL (1.3-3.2); Glucose 101 mg/dl (74-100); Potassium 5.6 mmoL/L (3.5-5.1); Sodium 136 mmol/L (136-145); Total Protein,Serum 7.1 g/dl (6.3-8.2)
[2023-05-03 19:28] LABS: Prostate Specific Ag Screen 2.6 ng/ml (0.0-4.0)
== END 2023-05-03 23:59 ==
LOC: LAB.DROPOF 20:48
PROVIDERS: PCP Internal Medicine; Visit Provider Internal Medicine
DX: I10 Essential (primary) hypertension (principal); N52.9 Male erectile dysfunction, unspecified; Z12.5 Encounter for screening for malignant neoplasm of prostate
CPT/HCPCS: 80053; G0103

== ENCOUNTER → 2023-05-11 13:06 | Outpatient (POV) | payer OTHER, SELFPAY ==
--- NOTE | 2023-05-11 13:40 | EXP.PAIN.SOA ---
[facility] Pain Management SOAP Note Subjective:: Patient is a pleasant 52-year-old male who presents today for follow-up of left transforaminal epidural steroid injection L4-L5 and L5-S1 on 03/15/2023. We are currently treating the patient for degenerative disc disease of lumbar spine with lumbar radiculopathy symptoms, lumbar spinal stenosis, shoulder pain, hip pain, knee pain, elbow pain. Today he rates his pain a 5 out of 10. He does state that he did have at least 60% improvement following this injection and that it did help his left leg symptoms however he is back to his baseline today. He does state that he also notices a little bit more numbness and burning into both his legs at night only. He does state today that he continues to have pain in his bilateral hips and thighs with numbness that is worse with increased activity or ambulation. He does state that he has to frequently stop and takes breaks for any relief. Patient does also state he continues to have chronic left shoulder pain. Patient does state that when we talked previously about possible nerve blocks for his shoulder that he may want to proceed forward with this option today. Patient has tried intra-articular shoulder injections with his last 1 from an outside provider not providing much improvement whatsoever. Patient does state that the orthopedic doctor did talk about possible shoulder replacement down the road due to his extensive tears however they are trying to put this off as long as possible. Patient does also state his surgeon who had talked about doing back surgery for him did contact him and stated that he did not any longer think he would benefit from the surgery and is no longer recommending it. He is currently managed with gabapentin 800 mg 3 times a day, [place] 7.5 mg twice a day and testosterone therapy from outside providers. Patient is currently in physical therapy and has been going for several weeks. His Jose has been reviewed and appropriate. Review of Systems: General: No recent weight changes, no fever, no sleep disturbances Respiratory: No cough, no shortness of air, no recurring pulmonary infections Cardiovascular/peripheral vascular: No chest pain, no palpitations, no edema, no shortness of breath Gastrointestinal: No new onset incontinence, normal bowel movements reported Genitourinary: No new onset incontinence Musculoskeletal: Low back pain, left shoulder pain Psychiatric: [Normal mood/affect] Neurological: [Denies weakness in extremities], [denies balance issues] Objective:: Physical Exam: General: Alert and oriented x3, no acute distress, pleasant and cooperative Lungs: Respirations even and unlabored, symmetrical chest expansion Eyes: PERRL Musculoskeletal: Flexion and extension of left shoulder somewhat guarded secondary to pain, [antalgic gait noted] Neurological: Speech clear, no gross sensory deficit Assessment:: Degenerative disc disease of lumbar spine with lumbar radiculopathy symptoms, lumbar spinal stenosis, shoulder pain, hip pain knee pain, elbow pain Plan:: Patient continues to have pain in multiple locations however today he does state that his shoulder is giving him more problems. Patient did have limited range of motion of his left shoulder with pain with palpation. I have discussed with the patient that he may benefit from a left suprascapular nerve block. Risk and benefits were discussed with the patient and he would like to proceed forward with this plan of care. I have also discussed with the patient in future due to his change of pain sensation is into both of his legs that we may look at doing a lumbar epidural steroid injection L4-L5 at a later date. Patient will also be sent for referral to [facility] for evaluation of his chronic low back and hip pain. Patient will be scheduled for a left shoulder suprascapular nerve block. Patient has been instructed to contact the clinic with any concerns before the next appointment. Dr. Payne has reviewed this note and agrees with this plan of care. This note was dictated using voice recognition software and make contain errors or omissions. [facility] Disclaimer: The information contained in this section may have been updated after the patient was seen, as this information can be updated by other users. Medical History Acute otitis media with effusion of left ear Arthritis Bulging disc Bursitis Carpal tunnel syndrome Chronic pain Francisco had neck MRIs, lower back MRIs, hip MRIs and other evaluations. He has significant disease in all these locations. He is following with orthopedics at [facility] as well as Dr. Payne in the pain clinic here at [facility]. I will refill his medications for now as he clearly has triggers for his pain issues. Will see him back in March and do further evaluations. Heart murmur History of back pain History of COVID-19 History of diverticulitis Hypertension I have suggested to Bill that he get his blood pressure in the morning. He is to do this before he smokes or has any coffee. He is to record these and bring them back to the clinic and we will review them. For now we will just keep him on his medications which include amlodipine and lisinopril. He is also on hydrochlorothiazide. 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 of nasal cavity Nerve compression Obstructive sleep apnea syndrome Overweight (BMI 25.0-29.9) Perforated nasal septum Pulmonary HTN Sinus headache Sinus problem Sleep apnea Surgical History H/O arthroscopy History of cholecystectomy History of hip surgery PINS AND SCREWS History of surgery NOSE SX X3 Hx of hernia repair X3 Hx of splenectomy Hx of tonsillectomy Family History Other Family history of hyperlipidemia Family history of hypertension Social History Smoking Status: Current every day smoker tobacco type: cigarettes packs per day: 1 second hand exposure: Yes alcohol intake: current substance use type: denies use current occupational status: unemployed Travel in the last 8 weeks: None housing: house 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
[2023-05-11 14:26] VITALS: BP 183/102; PULSE 112; RESP 20; O2SAT 94; BMI 32.1
== END ==
LOC: SC.PAIN 13:07
PROVIDERS: PCP Internal Medicine; Visit Provider Nurse Practitioner Family
DX: M51.16 Intervertebral disc disorders with radiculopathy, lumbar region (principal); M48.061 Spinal stenosis, lumbar region without neurogenic claudication; M25.512 Pain in left shoulder; M25.551 Pain in right hip; M25.552 Pain in left hip; M25.569 Pain in unspecified knee; M25.529 Pain in unspecified elbow
CPT/HCPCS: 99212; G0463

== ENCOUNTER 2023-05-27 14:00 | Outpatient (RCR) | payer OTHER, SELFPAY | END 2023-05-27 14:05 | disposition home or self-care (01) | LOC: OT 14:00 | PROVIDERS: PCP Internal Medicine; Visit Provider Family Medicine Sports Medicine | DX: M25.511 Pain in right shoulder (principal); M75.81 Other shoulder lesions, right shoulder; M25.512 Pain in left shoulder; M75.82 Other shoulder lesions, left shoulder | CPT/HCPCS: 97010; 97014; 97035; 97110; 97140; 97164; 97165; 97530; G0283 ==

== ENCOUNTER 2023-05-31 10:03 | Day surgery (SDC) | payer OTHER, SELFPAY ==
[2023-05-31 10:45] VITALS: BP 159/82; PULSE 112; RESP 18; TEMP 36.8; O2SAT 93; BMI 33.0
[2023-05-31 11:20] VITALS: BP 137/89; PULSE 102; RESP 18; O2SAT 93
--- NOTE | 2023-05-31 11:21 | EXP.PAIN.PRO ---
Procedure Date: 05/31/23 Time: 11:00 Anesthesiologist:: Derek Chaves CRNA Complications:: None Pre-procedure Diagnosis:: Chronic left shoulder pain. DJD left shoulder. Post-procedure Diagnosis:: Same. Indications for Procedure:: Patient is a very pleasant 52-year-old male comes our clinic today for a left suprascapular nerve block. Patient has had multiple intra-articular left shoulder injections with minimal relief. Patient has difficulty with range of motion. Patient has 5/5 strength in his left arm. Procedure Details:: Details of the procedure explained to the patient. The patient taken procedure and placed in the sitting position. The area over the left scapula was cleaned using chlorhexidine as a cleansing solution. Using a 25-gauge inch and half needle the superior lateral border of the left scapula was accessed with ease into separate areas. After negative aspiration 5 cc of solution containing 0.25% Marcaine +1% lidocaine and 40 mg of Depo-Medrol was injected at each area. Patient tolerated procedure without difficulty. There are no complications. Plan and Disposition:: Patient was discharged without incident.
[2023-05-31 14:21] VITALS: BP 136/98; PULSE 105; RESP 19; O2SAT 94
[2023-05-31] MEDS: BUPIVACAINE 0.25% 10ML INJ 25 MG IJ (14:21)
[2023-05-31] MEDS: methylPREDNISolone ACETATE 80MG/ML VIAL 80 MG (14:21)
[2023-05-31] MEDS: LIDOCAINE 1% 5ML PF VIAL 5 ML (14:21)
[2023-05-31 14:22] VITALS: BP 136/98; PULSE 105; RESP 18; O2SAT 94
== END 2023-05-31 11:20 | disposition home or self-care (01) ==
PROVIDERS: PCP Internal Medicine; Visit Provider Nurse Anesthetist, Certified Registered
DX: M19.012 Primary osteoarthritis, left shoulder (principal); M25.552 Pain in left hip; G89.29 Other chronic pain
CPT/HCPCS: 64418; J1040

== ENCOUNTER 2023-06-15 10:49 | Outpatient (POV) | payer OTHER, SELFPAY ==
[2023-06-15 10:58] VITALS: BP 161/98; PULSE 114; RESP 18; TEMP 36.6; O2SAT 98; BMI 32.8
--- NOTE | 2023-06-15 11:14 | EXP.PAIN.SOA ---
[facility] Pain Management SOAP Note Subjective:: Patient is a pleasant 52-year-old male who presents today for follow-up of left suprascapular nerve block on 05/31/2023. Today he rates his pain a 6 out of 10. Patient denies any new trauma or injury. He does state that he had approximately 40% relief following this injection. He states he has been able to move his shoulder a little bit more easier with decreased pain. He does state that he knows that it will not get much better due to the fact that he does have a rotator cuff tear. He states that he is scheduled to see Dr. Mohan on Tuesday for possible surgical intervention. He does also state that yesterday he did have 1 episode where he had been sitting into his recliner drinking coffee when he went to stand up he thought he just had numbness in his feet but his legs were trying to give out on him. Patient states he has never had this happen before and that it did take little time for the feeling to come back in his legs. He states he continues to have low back and leg issues. Patient is prescribed gabapentin, [place] and testosterone therapy from outside providers. His Jose has been reviewed and is appropriate. Review of Systems: General: No recent weight changes, no fever, no sleep disturbances Respiratory: No cough, no shortness of air, no recurring pulmonary infections Cardiovascular/peripheral vascular: No chest pain, no palpitations, no edema, no shortness of breath Gastrointestinal: No new onset incontinence, normal bowel movements reported Genitourinary: No new onset incontinence Musculoskeletal: Left shoulder pain, low back and leg pain Psychiatric: [Normal mood/affect] Neurological: [Denies weakness in extremities], [denies balance issues] Objective:: Physical Exam: General: Alert and oriented x3, no acute distress, pleasant and cooperative Lungs: Respirations even and unlabored, symmetrical chest expansion Eyes: PERRL Musculoskeletal: Flexion and extension of lumbar [spine] somewhat guarded secondary to pain, [antalgic gait noted] Neurological: Speech clear, no gross sensory deficit Assessment:: Degenerative disc disease of lumbar spine with lumbar radiculopathy symptoms, lumbar spinal stenosis, hip pain, knee pain, elbow pain, left shoulder pain Plan:: Patient has had some improvement following his nerve block of his left shoulder. I will order the patient a compounded cream. I have discussed with the patient that he still may benefit from additional lumbar epidural however due to his possible upcoming left shoulder rotator cuff repair that I do recommend he talk to the orthopedic provider first and confirm that he does not need to stop steroid use for 3 months prior to this procedure. Patient is agreeable with this plan of care. He will return to clinic in 2 weeks for reevaluation of symptoms and plan of care. Patient has been instructed to contact the clinic with any concerns before the next appointment. Dr. Payne has reviewed this note and agrees with this plan of care. This note was dictated using voice recognition software and make contain errors or omissions. [facility] Disclaimer: The information contained in this section may have been updated after the patient was seen, as this information can be updated by other users. Medical History Acute otitis media with effusion of left ear Arthritis Bulging disc Bursitis Carpal tunnel syndrome Chronic pain Singh had neck MRIs, lower back MRIs, hip MRIs and other evaluations. He has significant disease in all these locations. He is following with orthopedics at [facility] as well as Dr. Payne in the pain clinic here at [facility]. I will refill his medications for now as he clearly has triggers for his pain issues. Will increase his hydrocodone/APAP to 3 times daily. Heart murmur History of back pain History of COVID-19 History of diverticulitis Hypertension I have suggested again to Bill that he get his blood pressure in the morning. He does not bring any records today but he does state that his blood pressures been good . However here at the clinic they are elevated. Patient is currently on amlodipine, hydrochlorothiazide, and lisinopril. Will see what his blood pressures are when he returns to the clinic in 2 months. If they are still elevated both at home and here in the clinic we will consider other medications and changes. 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 of nasal cavity Nerve compression Obstructive sleep apnea syndrome Overweight (BMI 25.0-29.9) Perforated nasal septum Pulmonary HTN Sinus headache Sinus problem Sleep apnea Surgical History H/O arthroscopy History of cholecystectomy History of hip surgery PINS AND SCREWS History of surgery NOSE SX X3 Hx of hernia repair X3 Hx of splenectomy Hx of tonsillectomy Family History Other Family history of hyperlipidemia Family history of hypertension Social History Smoking Status: Current every day smoker tobacco type: cigarettes packs per day: 1 second hand exposure: Yes alcohol intake: current substance use type: denies use current occupational status: other Travel in the last 8 weeks: None housing: house 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
== END 2023-06-15 23:59 ==
LOC: SC.PAIN 10:49
PROVIDERS: PCP Internal Medicine; Visit Provider Nurse Practitioner Family
DX: M51.16 Intervertebral disc disorders with radiculopathy, lumbar region (principal); M48.061 Spinal stenosis, lumbar region without neurogenic claudication; M25.559 Pain in unspecified hip; M25.569 Pain in unspecified knee; M25.529 Pain in unspecified elbow; M25.512 Pain in left shoulder
CPT/HCPCS: 99212; G0463

== ENCOUNTER 2023-06-28 20:50 | Outpatient (CLI) | payer OTHER, SELFPAY ==
[2023-06-28 18:10] LABS: Basophils # 0.1 K/mm3 (0-0.2); Basophils % 1.1 % (0.1-2.0); Eosinophils # 0.1 K/mm3 (0.0-0.4); Eosinophils % 1.1 % (0.1-12.0); Hematocrit 58.1 % (42.0-52.0); Lymphocytes # 2.8 K/mm3 (0.7-4.5); Lymphocytes % 24.6 % (10-50); Mean Corpuscular Hemoglobin 34.4 pg (27.0-31.2); Mean Corpuscular Volume 104.4 fl (80-94); Monocytes # 1.1 K/mm3 (0.1-1.0); Monocytes % 9.8 % (1.7-9.3); Neutrophils # 7.2 K/mm3 (1.8-7.8); Neutrophils % 63.3 % (37.0-80.0); Platelet Count 438 K/mm3 (142-424); Red Blood Count 5.56 M/mm3 (4.60-6.20); White Blood Count 11.3 K/mm3 (4.8-10.8)
[2023-06-28 18:12] LABS: Hemoglobin 19.2 g/dL (14.1-18.0)
[2023-06-28 18:22] LABS: Chol/HDL Ratio 5.5 (1-3.5); Cholesterol 204 mg/dl (140-200); HDL Cholesterol 37 mg/dl (40-60); Triglycerides 357 mg/dl (30-150); VLDL Cholesterol 71 mg/dL (0-40)
[2023-06-28 18:33] LABS: Direct LDL Cholesterol 108.23 mg/dL (100-129)
== END 2023-06-28 23:59 ==
LOC: LAB.DROPOF 20:51
PROVIDERS: PCP Internal Medicine; Visit Provider Internal Medicine
DX: E78.5 Hyperlipidemia, unspecified (principal); E66.9 Obesity, unspecified; Z68.33 Body mass index [BMI] 33.0-33.9, adult
CPT/HCPCS: 80061; 85025

== ENCOUNTER 2023-06-29 13:01 | Outpatient (POV) | payer OTHER, SELFPAY ==
--- NOTE | 2023-06-29 13:16 | EXP.PAIN.SOA ---
[facility] Pain Management SOAP Note Subjective:: Patient is a pleasant 52-year-old male who presents today for follow-up. Today he rates his pain a 6 out of 10. Patient denies any new trauma or injury. He does state from our last visit he did meet with the orthopedic doctor and they are planning on doing shoulder surgery on him on 21 July. Patient does state that he thinks they are going to go in and do a shoulder scope initially and may have to repair a tendon with cadaver bone but he states the provider stated he would not know for sure until once he was in there. Patient does state that he is still interested in doing injection therapy for his low back and leg issues however he knows that he has to wait until after this surgical procedure. He does state that the compounded cream that we ordered for him last visit did significantly help. He does state though initially the first box that came in the mail had been tampered with so you did have to contact them and get a new one sent over. Patient is prescribed gabapentin, [place] and testosterone therapy from outside providers. His Jose has been reviewed and is appropriate. Review of Systems: General: No recent weight changes, no fever, no sleep disturbances Respiratory: No cough, no shortness of air, no recurring pulmonary infections Cardiovascular/peripheral vascular: No chest pain, no palpitations, no edema, no shortness of breath Gastrointestinal: No new onset incontinence, normal bowel movements reported Genitourinary: No new onset incontinence Musculoskeletal: Left shoulder pain, low back and leg pain Psychiatric: [Normal mood/affect] Neurological: [Denies weakness in extremities], [denies balance issues] Objective:: Physical Exam: General: Alert and oriented x3, no acute distress, pleasant and cooperative Lungs: Respirations even and unlabored, symmetrical chest expansion Eyes: PERRL Musculoskeletal: Flexion and extension of lumbar [spine] somewhat guarded secondary to pain, [antalgic gait noted] Neurological: Speech clear, no gross sensory deficit Assessment:: Degenerative disc disease of lumbar spine with lumbar radiculopathy symptoms, bilateral hip pain, bilateral shoulder pain, knee pain, elbow pain Plan:: Patient has been counseled that we can definitely help with his overall low back and leg symptoms after his shoulder surgery however that we would have to make sure that there are no contraindications with this orthopedic provider. Patient acknowledges understanding. I have counseled the patient that we will see him back in 6 weeks following his shoulder surgery for reevaluation of symptoms and plan of care. Patient has been instructed to contact the clinic with any concerns before the next appointment. Dr. Payne has reviewed this note and agrees with this plan of care. This note was dictated using voice recognition software and make contain errors or omissions. [facility] Disclaimer: The information contained in this section may have been updated after the patient was seen, as this information can be updated by other users. Medical History Acute otitis media with effusion of left ear Inverted papilloma of nasal cavity Nerve compression Carpal tunnel syndrome Bursitis Arthritis Bulging disc Sleep apnea History of COVID-19 Sinus headache History of back pain History of diverticulitis Perforated nasal septum Obstructive sleep apnea syndrome Inverted papilloma of lateral nasal wall Hypogonadism in male Chronic pain Francisco had neck MRIs, lower back MRIs, hip MRIs and other evaluations. He has significant disease in all these locations. He is following with orthopedics at [facility] as well as Dr. Payne in the pain clinic here at [facility]. I will refill his medications for now as he clearly has triggers for his pain issues. Will increase his hydrocodone/APAP to 3 times daily. Pulmonary HTN Sinus problem Heart murmur Overweight (BMI 25.0-29.9) Hypertension I have suggested again to Bill that he get his blood pressure in the morning. He does not bring any records today but he does state that his blood pressures been good . However here at the clinic they are elevated. Patient is currently on amlodipine, hydrochlorothiazide, and lisinopril. Will see what his blood pressures are when he returns to the clinic in 2 months. If they are still elevated both at home and here in the clinic we will consider other medications and changes. 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
[2023-06-29 13:41] VITALS: BP 147/89; PULSE 117; RESP 18; O2SAT 95; BMI 33.5
== END 2023-06-29 23:59 ==
LOC: SC.PAIN 13:02
PROVIDERS: PCP Internal Medicine; Visit Provider Nurse Practitioner Family
DX: M51.16 Intervertebral disc disorders with radiculopathy, lumbar region (principal); M25.511 Pain in right shoulder; M25.512 Pain in left shoulder; M25.551 Pain in right hip; M25.552 Pain in left hip; M25.569 Pain in unspecified knee; M25.529 Pain in unspecified elbow
CPT/HCPCS: 99212; G0463

== ENCOUNTER 2023-07-07 12:25 | Outpatient (CLI) | payer OTHER, SELFPAY ==
[2023-07-07 12:29] VITALS: BMI 33.4
[2023-07-07 12:47] LABS: Hematocrit 61.1 % (42.0-52.0)
[2023-07-07 12:57] VITALS: BP 126/98; PULSE 108; RESP 19; O2SAT 97
[2023-07-07 13:30] VITALS: BP 168/102; PULSE 102; RESP 19; O2SAT 97
== END 2023-07-07 13:30 | disposition home or self-care (01) ==
LOC: INF 12:25
PROVIDERS: PCP Internal Medicine; Visit Provider Urology
DX: R71.8 Other abnormality of red blood cells (principal)
CPT/HCPCS: 36415; 85014; 85018; 99195

== ENCOUNTER 2023-07-13 16:09 | Outpatient (CLI) | payer OTHER, SELFPAY ==
[2023-07-13 18:40] LABS: Alanine Aminotransferase 40 U/L (12-78); Albumin Level 4.4 g/dl (3.5-5.0); Albumin/Globulin Ratio 1.9 (1.1-1.8); Alkaline Phosphatase 107 U/L (38-126); Anion Gap 15.3 mEq/L (5-15); Aspartate Amino Transferase 35 U/L (17-59); Bilirubin,Total 0.3 mg/dl (0.2-1.3); Blood Urea Nitrogen 14 mg/dl (9-20); Calcium 10.3 mg/dl (8.4-10.2); Carbon Dioxide 27 mmol/L (22.0-30.0); Chloride 104 mmol/L (98-107); Estimated Glomerular Filt Rate 102 ml/min (>60); GFR (African American) 123 ML/MIN (>60); Globulin 2.3 g/dL (1.3-3.2); Glucose 123 mg/dl (74-100); Potassium 5.3 mmoL/L (3.5-5.1); Sodium 141 mmol/L (136-145); Total Protein,Serum 6.7 g/dl (6.3-8.2)
== END 2023-07-13 23:59 | disposition home or self-care (01) ==
LOC: LAB.DROPOF 07-14 16:09
PROVIDERS: PCP Internal Medicine; Visit Provider Internal Medicine
DX: E78.00 Pure hypercholesterolemia, unspecified (principal)
CPT/HCPCS: 80053; 84443

== ENCOUNTER 2023-07-24 11:52 | Emergency (ER) | payer OTHER, SELFPAY ==
[2023-07-24 11:52] VITALS: BP 162/110; PULSE 91; RESP 18; TEMP 36.9; O2SAT 95; BMI 34.4
[2023-07-24 12:19] VITALS: BP 160/100; PULSE 101; RESP 20; TEMP 36.9; O2SAT 96
--- NOTE | 2023-07-24 12:21 | HMH.EDGENADL ---
Discharge Plan Disposition Patient Disposition: Home, Self-Care Prescriptions Prescriptions: New cephalexin 500 mg capsule 500 mg PO QID 10 Days Qty: 40 0RF No Action Nasal [place] (sodium chloride) 0.65 % aerosol,spray 2 spray intranasal QID Qty: 88 0RF lisinopril 40 mg tablet 80 mg PO DAILY 30 Days Qty: 60 1RF gabapentin 800 mg tablet 800 mg PO TID 30 Days Qty: 90 1RF chlorthalidone 25 mg tablet 25 mg PO DAILY 30 Days Qty: 30 2RF amitriptyline 25 mg tablet 25 mg PO DAILY 90 Days Qty: 90 4RF fexofenadine 180 mg tablet 180 mg PO DAILY Qty: 60 2RF nicotine 21 mg/24 hr patch 24 hour 1 patch transdermal DAILY atorvastatin 20 mg tablet 40 mg PO DAILY 60 Days Qty: 120 2RF hydrocodone-acetaminophen 7.5-325 mg tablet 1 tab PO Q8H PRN (Reason: pain) 30 Days Qty: 90 0RF nicotine (polacrilex) 4 mg gum 4 mg buccal Q2H Qty: 110 4RF hydrocodone-acetaminophen 7.5-325 mg tablet 1 tab PO Q6H PRN (Reason: pain) 30 Days Qty: 90 0RF sildenafil (pulm.hypertension) 20 mg tablet 20 mg PO DAILY PRN (Reason: sexual activity) Qty: 40 0RF testosterone cypionate 200 mg/mL oil 200 mg IM Q6 Referrals Follow up/Referrals: Jacques Maher DO [Primary Care Provider] - See instructions Activity Restrictions/Add. Instructions Additional Instructions/Restrictions: The erythematous or red region on your arm is most likely an adverse drug reaction from the medication that was administered subcutaneously presurgery yesterday. However this is clinically indistinguishable from a cellulitis or an erysipelas therefore we will treat with oral antibiotics. Please return in 48 to 72 hours if you are not improving in her symptoms. Clinical Impressions Clinical Impression: Adverse drug reaction Discharge ED Provider: Doug Goldstein General Adult HPI General Chief complaint: PAIN Stated complaint: right and left arm pain Time Seen by Provider: 07/24/23 12:05 Mode of Arrival: Wheelchair Source of Information: Patient Limitations: No Limitations Description of Symptoms (Recalled from ER Triage Doc. by RN): left shoulder surgery yesterday. post op pain History of Present Illness HPI narrative: Patient is a 52-year-old male presents today with multiple complaints. First of all he states that he had rotator cuff surgery yesterday he had a spinal block with a catheter that was in place that has subsequently come out and he is having significant pain at this point but has oxycodone tens he has been taking for that. Secondly he states that the strap on his shoulder immobilizer ripped with the Velcro and he went to this to assess that. Lastly he states that his right upper extremity is swollen and erythematous and a localized region. He states that right before his surgery he was telling the team was taken care of him that his IV was infiltrating and he was having significant pain and he states that medication continues to be administered and that he had redness and swelling since that time which he presents today with. He states that there is no significant pain associated with that now it did initially itch no fevers or chills etc. Related Data Home Medications Medication Instructions Recorded Confirmed testosterone cypionate 200 mg/mL 200 mg IM Q6 Supplement 01/12/22 07/13/23 intramuscular oil nicotine 21 mg/24 hr daily 1 patch transdermal DAILY SMOKING 06/28/23 07/13/23 transdermal patch CESSATION Previous Rx's Medication Instructions Recorded sildenafil (pulm.hypertension) 20 20 mg PO DAILY PRN sexual activity 05/20/21 mg tablet #40 tabs sodium chloride 0.65 % nasal spray 2 spray intranasal QID NOSE #88 mL 12/15/22 aerosol (Nasal [place] (sodium chloride)) amitriptyline 25 mg tablet 25 mg PO DAILY 90 days #90 tabs 06/28/23 chlorthalidone 25 mg tablet 25 mg PO DAILY 30 days #30 tabs 06/28/23 fexofenadine 180 mg tablet 180 mg PO DAILY ALLERGIES #60 tabs 06/28/23 gabapentin 800 mg tablet 800 mg PO TID Pain 30 days #90 tabs 06/28/23 lisinopril 40 mg tablet 80 mg (2 x 40 mg) PO DAILY 30 days 06/28/23 #60 tabs atorvastatin 20 mg tablet 40 mg (2 x 20 mg) PO DAILY 60 days 07/13/23 #120 tabs hydrocodone 7.5 mg-acetaminophen 1 tab PO Q6H PRN pain 30 days #90 07/13/23 325 mg tablet tabs hydrocodone 7.5 mg-acetaminophen 1 tab PO Q8H PRN pain 30 days #90 07/13/23 325 mg tablet tabs nicotine (polacrilex) 4 mg gum 4 mg buccal Q2H #110 ea 07/13/23 cephalexin 500 mg capsule 500 mg PO QID 10 days #40 caps 07/24/23 Allergies Allergy/AdvReac Type Severity Reaction Status Date / Time No Known Allergies Allergy Verified 07/13/23 13:26 [facility] Disclaimer: The information contained in this section may have been updated after the patient was seen, as this information can be updated by other users. Medical History Acute otitis media with effusion of left ear Inverted papilloma of nasal cavity Nerve compression Carpal tunnel syndrome Bursitis Arthritis Bulging disc Sleep apnea History of COVID-19 Sinus headache History of back pain History of diverticulitis Perforated nasal septum Obstructive sleep apnea syndrome I will discuss this with him when he returns. This is contributing to his thrombocytosis. Inverted papilloma of lateral nasal wall Hypogonadism in male Chronic pain Francisco had neck MRIs, lower back MRIs, hip MRIs and other evaluations. He has significant disease in all these locations. He is following with orthopedics at [facility] as well as Dr. Payne in the pain clinic here at [facility]. I will refill his medications for now as he clearly has triggers for his pain issues. Will increase his hydrocodone/APAP to 3 times daily. Pulmonary HTN Sinus problem Heart murmur Overweight (BMI 25.0-29.9) Hypertension Patient has not taken the amlodipine because it causes lower extremity edema. He is on hydrochlorothiazide for his blood pressure not for the swelling in his lower extremities I imagine. Additionally he is on lisinopril. We will stop the amlodipine, we will stop the hydrochlorothiazide. Will increase his lisinopril to 80 mg/day. Will add chlorthalidone 25 mg/day. I want him to record his blood pressures bring those back with him and we will see him in 2 to 3 weeks. 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 current occupational exposures/hazards: No caffeine: Yes special bijan needs: No agree to transfusion: No do you feel safe at home: Yes victim of physical abuse: No victim of emotional abuse: No victim of sexual abuse: No would you like helpful sources: No ROS Obtained: Yes All systems reviewed & no additional complaints except as documented Physical Exam General General appearance: alert and in no apparent distress Respiratory Respiratory exam: Present normal lung sounds bilaterally Cardiovascular Cardiovascular exam: Present regular rate Extremities Exam Extremities exam: Present other (In the right upper extremity along the ulnar aspect there is a very well-demarcated area of erythema extending from the hand up to the elbow also with some circumferential swelling of the hand itself this is nontender) Neurological Exam Neurological exam: Present alert and oriented X3 Medical Decision Making Jose Inquiry Pt receiving controlled substance: No Vital Signs: 07/24/23 11:52 Temperature 98.5 F Temperature Source Oral Pulse Rate [Right] 91 H Respiratory Rate 18 Blood Pressure [Right Arm] 162/110 H Blood Pressure Mean [Right Arm] 127 02 Sat by Pulse Oximetry 95 Oxygen Delivery Method Room Air Medical Decision Narrative: Patient with above history and physical. Regarding his pain pump I told him I could not replace this and he will need to continue to take his oxycodone as previously instructed. Were able to adjust his shoulder immobilizer without any significant problems to his satisfaction. Lastly regarding the well-demarcated area of erythema on his arm is most likely a localized drug inflammatory response from subcutaneous infiltration. However this is clinically indistinguishable from a cellulitis or erysipelas. Oral antibiotics will be administered in the event that this is infectious. He will return in 40 to 72 hours if he is having any worsening of symptoms. Critical Care Critical Care Time Critical Care Time: No
--- NOTE | 2023-07-24 12:22 | PC.NURSE ---
nursing fixed pts shoulder immobilizer. he reports a great decrease in pain.
== END 2023-07-24 12:30 | disposition home or self-care (01) ==
PROVIDERS: Emergency Provider Student in an Organized Health Care Education/Training Program; PCP Internal Medicine
DX: T80.89XA Other complications following infusion, transfusion and therapeutic injection, initial encounter (principal); L53.8 Other specified erythematous conditions
CPT/HCPCS: 99283

== ENCOUNTER 2023-08-10 10:47 | Outpatient (POV) | payer OTHER, SELFPAY ==
[2023-08-10 10:58] VITALS: BP 150/78; PULSE 100; RESP 18; O2SAT 96; BMI 35.2
--- NOTE | 2023-08-10 11:19 | EXP.PAIN.SOA ---
[facility] Pain Management SOAP Note Subjective:: Patient is a pleasant 52-year-old male who presents today for follow-up. Patient rates his pain today a 6 out of 10. Patient did end up undergoing his left shoulder surgery at [facility]. Patient does state that overall the experience did not go as well as he would have hoped however his shoulder pain is better following this procedure. He does present today with the left shoulder in a sling and states that he does have to wear this for about 2 more weeks and can be released from it. He states that they are telling him that he is healing nicely. Patient states that the [facility] orthopedics provider Dr. Mohan has given him approval that he can do injections as long as it is not related to his left shoulder. Patient does state due to the recent surgery he has been sleeping in the recliner and so he has been having worsening bilateral hip pain. Patient does state that he has had bursitis in the past and even had arthritis in the joints and his right hip does even have pins and screws. He does state this is a constant aching, throbbing sensation with numbness and tingling. He does state that he would like to see about some injections for the hip pain as it is starting to interfere with his ability to perform activities of daily living such as cooking and cleaning. Patient is prescribed gabapentin, [place] and testosterone from outside providers. Patient was given postop pain meds. His Jose has been reviewed and is appropriate. Review of Systems: General: No recent weight changes, no fever, no sleep disturbances Respiratory: No cough, no shortness of air, no recurring pulmonary infections Cardiovascular/peripheral vascular: No chest pain, no palpitations, no edema, no shortness of breath Gastrointestinal: No new onset incontinence, normal bowel movements reported Genitourinary: No new onset incontinence Musculoskeletal: Bilateral hip pain Psychiatric: [Normal mood/affect] Neurological: [Denies weakness in extremities], [denies balance issues] Objective:: Physical Exam: General: Alert and oriented x3, no acute distress, pleasant and cooperative Lungs: Respirations even and unlabored, symmetrical chest expansion Eyes: PERRL Musculoskeletal: Flexion and extension of lumbar [spine] somewhat guarded secondary to pain, [antalgic gait noted] point tenderness along bilateral greater trochanteric bursa's Neurological: Speech clear, no gross sensory deficit Assessment:: Degenerative disc disease of lumbar spine with lumbar radiculopathy symptoms, bilateral hip pain, bilateral shoulder pain, knee pain, elbow pain, bilateral greater trochanteric bursitis Plan:: Patient is experiencing worsening pain in his bilateral hips with point tenderness along his greater trochanteric bursa's. I have discussed with the patient that he may benefit from bilateral bursa injections. Risk and benefits were discussed with patient and he would like to proceed forward with this plan of care. Patient has tried and failed conservative therapies including oral medication, heat and ice, topicals, at home stretching and exercise between injections. We will schedule the patient for bilateral greater trochanteric bursa injections under fluoroscopy. Patient has been instructed to contact the clinic with any concerns before the next appointment. Dr. Payne has reviewed this note and agrees with this plan of care. This note was dictated using voice recognition software and make contain errors or omissions. [facility] Disclaimer: The information contained in this section may have been updated after the patient was seen, as this information can be updated by other users. Medical History Acute otitis media with effusion of left ear Inverted papilloma of nasal cavity Nerve compression Carpal tunnel syndrome Bursitis Arthritis Bulging disc Sleep apnea History of COVID-19 Sinus headache History of back pain History of diverticulitis Perforated nasal septum Obstructive sleep apnea syndrome I will discuss this with him when he returns. This is contributing to his thrombocytosis. Inverted papilloma of lateral nasal wall Hypogonadism in male Chronic pain Singh had neck MRIs, lower back MRIs, hip MRIs and other evaluations. He has significant disease in all these locations. He is following with orthopedics at [facility] as well as Dr. Payne in the pain clinic here at [facility]. I will refill his medications for now as he clearly has triggers for his pain issues. Will increase his hydrocodone/APAP to 3 times daily. Pulmonary HTN Sinus problem Heart murmur Overweight (BMI 25.0-29.9) Hypertension Patient has not taken the amlodipine because it causes lower extremity edema. He is on hydrochlorothiazide for his blood pressure not for the swelling in his lower extremities I imagine. Additionally he is on lisinopril. We will stop the amlodipine, we will stop the hydrochlorothiazide. Will increase his lisinopril to 80 mg/day. Will add chlorthalidone 25 mg/day. I want him to record his blood pressures bring those back with him and we will see him in 2 to 3 weeks. 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
== END 2023-08-10 23:59 | disposition home or self-care (01) ==
LOC: SC.PAIN 10:47
PROVIDERS: PCP Internal Medicine; Visit Provider Nurse Practitioner Family
DX: M51.16 Intervertebral disc disorders with radiculopathy, lumbar region (principal); M25.511 Pain in right shoulder; M25.512 Pain in left shoulder; M25.551 Pain in right hip; M25.552 Pain in left hip; M25.569 Pain in unspecified knee; M25.529 Pain in unspecified elbow; M70.61 Trochanteric bursitis, right hip; M70.62 Trochanteric bursitis, left hip
CPT/HCPCS: 99212; G0463

== ENCOUNTER 2023-08-30 09:44 | Day surgery (SDC) | payer OTHER, SELFPAY ==
[2023-08-30 10:05] VITALS: BP 119/75; PULSE 116; RESP 18; TEMP 36.8; O2SAT 93; BMI 34.4
[2023-08-30] MEDS: LIDOCAINE 1% 5ML PF VIAL 5 ML (10:19)
[2023-08-30] MEDS: methylPREDNISolone ACETATE 80MG/ML VIAL 80 MG (10:19)
[2023-08-30] MEDS: BUPIVACAINE 0.25% 10ML INJ 25 MG IJ (10:19)
[2023-08-30 10:20] VITALS: BP 142/98; PULSE 108; RESP 18; O2SAT 96
[2023-08-30 10:22] VITALS: BP 142/98; PULSE 108; RESP 18; O2SAT 97
--- NOTE | 2023-08-30 10:25 | P.PCN_ITS ---
Procedure Date: 08/30/23 Time: 10:15 Anesthesiologist:: Derek Chaves CRNA Complications:: None Pre-procedure Diagnosis:: Greater trochanteric bursitis bilateral Post-procedure Diagnosis:: Same. Indications for Procedure:: Patient is a pleasant 52-year-old male who comes to our clinic today for bilateral greater trochanteric bursa injections of cortisone. Upon examination the patient has point tenderness over the bilateral trochanteric bursa area. He rates his pain 7/10. Procedure Details:: Procedure: Bilateral trochanteric bursa joint injections under fluoroscopy Informed consent was obtained and the risks and benefits of the procedure were explained to the patient.~ The patient was taken to the procedure room and noninvasive monitors were placed including a noninvasive blood pressure cuff and pulse oximeter.~ The patient was placed prone on the procedure table. Both hips were cleansed using Betadine as a cleansing solution. C-arm fluoroscopy was used to view the right trochanteric bursa joint.~ The skin and subcutaneous tissues were anesthetized using lidocaine 1.5% and a 25-gauge needle.~ After this, a 22- gauge spinal needle was inserted under fluoroscopic guidance into the inferior aspect of the right trochanteric bursa.~ Omnipaque dye was injected and good spread was seen throughout the joint.~ After this, approximately 5 mL of bupivacaine, 0.25% and Depo-Medrol, 40 mg was incrementally injected into the right sacroiliac joint. We then moved to the left trochanteric bursa joint.~ The skin and subcutaneous tissues were anesthetized using lidocaine 1.5% and a 25-gauge needle.~ After this, a 22-gauge spinal needle was inserted under fluoroscopic guidance into the inferior aspect of the left trochanteric bursa joint.~ Omnipaque dye was injected and good spread was seen throughout the joint. After this, appr oximately 5 mL of bupivacaine, 0.25% and Depo-Medrol, 40 mg was incrementally injected into the left sacroiliac joint.~ The patient tolerated the procedure well with no complications. The patient was observed in the Pain Clinic and then was discharged home neurologically intact. Plan and Disposition:: Patient was discharged without incident.
[2023-08-30 10:26] VITALS: BP 138/81; PULSE 52; RESP 18; TEMP 36.7; O2SAT 99
== END 2023-08-30 10:26 | disposition home or self-care (01) ==
PROVIDERS: PCP Internal Medicine; Visit Provider Nurse Anesthetist, Certified Registered
DX: M70.61 Trochanteric bursitis, right hip (principal); M70.62 Trochanteric bursitis, left hip
CPT/HCPCS: 20610; 77002; J1010

== ENCOUNTER 2023-09-22 14:07 | Outpatient (POV) | payer OTHER, SELFPAY ==
[2023-09-22 14:19] VITALS: BP 138/94; PULSE 125; RESP 18; O2SAT 97; BMI 33.7
--- NOTE | 2023-09-22 14:45 | A.OFFVIS_ITS ---
[facility] Disclaimer: The information contained in this section may have been updated after the patient was seen, as this information can be updated by other users. Medical History Acute otitis media with effusion of left ear Inverted papilloma of nasal cavity Nerve compression Carpal tunnel syndrome Bursitis Arthritis Bulging disc Sleep apnea History of COVID-19 Sinus headache History of back pain History of diverticulitis Perforated nasal septum Obstructive sleep apnea syndrome I will discuss this with him when he returns. This is contributing to his thrombocytosis. Inverted papilloma of lateral nasal wall Hypogonadism in male Chronic pain Singh had neck MRIs, lower back MRIs, hip MRIs and other evaluations. He has significant disease in all these locations. He is following with orthopedics at [facility] as well as Dr. Payne in the pain clinic here at [facility]. I will refill his medications for now as he clearly has triggers for his pain issues. Will increase his hydrocodone/APAP to 3 times daily. Pulmonary HTN Sinus problem Heart murmur Overweight (BMI 25.0-29.9) Hypertension Patient has not taken the amlodipine because it causes lower extremity edema. He is on hydrochlorothiazide for his blood pressure not for the swelling in his lower extremities I imagine. Additionally he is on lisinopril. We will stop the amlodipine, we will stop the hydrochlorothiazide. Will increase his lisinopril to 80 mg/day. Will add chlorthalidone 25 mg/day. I want him to record his blood pressures bring those back with him and we will see him in 2 to 3 weeks. 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 Today he rates his pain a 6 out of 10. He does state that he had at least 50 to 60% improvement following these injections and they are still helping. Today he does state a lot of his pain is more prominent in and around his right hip but does have it in his left as well. Patient states it is an aching, throbbing sensation with some numbness into and around his groin. Patient does state the pain interferes with his ability perform activities of daily living such as cooking and cleaning. Patient is interested in injection therapy for this pain. Patient does also state from our last visit he ended up getting food poisoning that lasted 10 days and then ended up having a bout of diverticulitis. Patient does state in total he lost about 10 to 15 pounds due to this. He states he is just now starting to feel better as of yesterday. Patient did have elevated heart rate and states that it may be a combination of this along with he does drink a red bull. Patient is prescribed gabapentin, [place] and testosterone from outside providers. His Jose has been reviewed and is appropriate. Review of Systems: General: No recent weight changes, no fever, no sleep disturbances Respiratory: No cough, no shortness of air, no recurring pulmonary infections Cardiovascular/peripheral vascular: No chest pain, no palpitations, no edema, no shortness of breath Gastrointestinal: No new onset incontinence, normal bowel movements reported Genitourinary: No new onset incontinence Musculoskeletal: Bilateral hip pain Psychiatric: [Normal mood/affect] Neurological: [Denies weakness in extremities], [denies balance issues] Pain at rest (0-10 scale): 6 Objective Objective:: Physical Exam: General: Alert and oriented x3, no acute distress, pleasant and cooperative Lungs: Respirations even and unlabored, symmetrical chest expansion Eyes: PERRL Musculoskeletal: Flexion and extension of lumbar [spine] somewhat guarded secondary to pain, [antalgic gait noted] point tenderness along bilateral SIs with positive bilateral Kirstie's, Tray's, Gaenslen's, compression and distraction exam Neurological: Speech clear, no gross sensory deficit Has patient had previous pain injection?: Yes Percent improvement in pain since last injection: 60 Conservative treatment options previously tried: Home exercise plan Length of treatment: Longer than 6 weeks, Physical Therapy Length of treatment: Longer than 6 weeks and Prescription medications Length of treatment: Longer than 6 weeks Meds Home Medications and Allergies Home Medications Medication Instructions Recorded Confirmed Type sildenafil (pulm.hypertension) 20 20 mg PO DAILY PRN sexual activity 05/20/21 09/22/23 Rx mg tablet #40 tabs testosterone cypionate 200 mg/mL 200 mg IM Q6 Supplement 01/12/22 09/22/23 History intramuscular oil amitriptyline 25 mg tablet 25 mg PO DAILY 90 days #90 tabs 06/28/23 09/22/23 Rx chlorthalidone 25 mg tablet 25 mg PO DAILY 30 days #30 tabs 06/28/23 09/22/23 Rx fexofenadine 180 mg tablet 180 mg PO DAILY ALLERGIES #60 tabs 06/28/23 09/22/23 Rx nicotine 21 mg/24 hr daily 1 patch transdermal DAILY SMOKING 06/28/23 09/22/23 History transdermal patch CESSATION hydrocodone 7.5 mg-acetaminophen 1 tab PO Q6H PRN pain 30 days #90 07/13/23 09/22/23 Rx 325 mg tablet tabs nicotine (polacrilex) 4 mg gum 4 mg buccal Q2H #110 ea 07/13/23 09/22/23 Rx lisinopril 40 mg tablet See Rx Instructions .Route 08/12/23 09/22/23 Rx .COMPLEX #60 tabs amantadine HCl 100 mg tablet 100 mg PO DIRECTED 09/14/23 09/22/23 History gabapentin 800 mg tablet 800 mg PO TID Pain 30 days #90 tabs 09/15/23 09/22/23 Rx hydrocodone 7.5 mg-acetaminophen 1 tab PO Q8H PRN pain 30 days #90 09/15/23 09/22/23 Rx 325 mg tablet tabs metronidazole 500 mg tablet 500 mg PO TID diverticulitis 10 09/16/23 09/22/23 Rx days #30 tabs New Prescriptions to Start Prescriptions: Allergies Allergy/AdvReac Type Severity Reaction Status Date / Time No Known Allergies Allergy Verified 09/14/23 12:56 Assessment and Plan *Assessment and plan (1) Bilateral sacroiliitis: Status: Acute Category: Medical Code(s): M46.1 - Sacroiliitis, not elsewhere classified (2) Bilateral hip pain: Status: Acute Category: Medical Code(s): M25.551 - Pain in right hip; M25.552 - Pain in left hip Plan Patient is experiencing significant pain in his low back and bilateral hips with limited range of motion. Patient did have extreme point tenderness along his right SI and point tenderness along his left along with positive bilateral Kirstie's, Tray's, Gaenslen's, compression and distraction exam. I discussed with the patient that he may benefit from bilateral SI injections. Risk and benefits were discussed with patient and he would like to proceed forward with this plan of care. Patient did have 50 to 60% improvement with his bilateral bursa injections and feels like those are still helping. Patient has tried and failed conservative therapy including continued at home stretching exercise between injections. Patient is scheduled for his orthopedic follow-up on October 09. Patient will be scheduled for bilateral SI injections under fluoroscopy. Patient has been instructed to contact the clinic with any concerns before the next appointment. Dr. Payne has reviewed this note and agrees with this plan of care. This note was dictated using voice recognition software and make contain errors or omissions.
== END 2023-09-22 23:59 | disposition home or self-care (01) ==
LOC: SC.PAIN 14:07
PROVIDERS: PCP Internal Medicine; Visit Provider Nurse Practitioner Family
DX: M46.1 Sacroiliitis, not elsewhere classified (principal); M25.551 Pain in right hip; M25.552 Pain in left hip
CPT/HCPCS: 99212; G0463

== ENCOUNTER 2023-10-11 13:13 | Day surgery (SDC) | payer OTHER, SELFPAY ==
[2023-10-11 13:29] VITALS: BP 145/86; PULSE 118; RESP 18; TEMP 36.6; O2SAT 98; BMI 33.5
[2023-10-11] MEDS: BUPIVACAINE 0.25% 10ML INJ 25 MG IJ (13:43)
[2023-10-11] MEDS: LIDOCAINE 1% 5ML PF VIAL 5 ML (13:44)
[2023-10-11] MEDS: methylPREDNISolone ACETATE 80MG/ML VIAL 80 MG (13:44)
[2023-10-11 13:45] VITALS: BP 148/97; PULSE 115; RESP 18; O2SAT 97
--- NOTE | 2023-10-11 13:45 | P.PCN_ITS ---
Procedure Date: 10/11/23 Time: 13:40 Anesthesiologist:: Derek Chaves CRNA Complications:: None Pre-procedure Diagnosis:: Bilateral sacroiliitis Post-procedure Diagnosis:: Same Indications for Procedure:: Patient is a pleasant 52-year-old male comes our clinic today for bilateral sacroiliac joint injections of cortisone. Patient describes low lumbar back pain off the midline bilaterally as constant, dull, aching. He rates his pain 7/10. Patient reports having difficulty transitioning from sitting to standing. Standing and/or sitting for any length of time increases pain in the low lumbar back as well as posterior hip area. Procedure Details:: Procedure: Bilateral sacroiliac joint injections under fluoroscopy Informed consent was obtained and the risks and benefits of the procedure were explained to the patient.~ The patient was taken to the procedure room and noninvasive monitors were placed including a noninvasive blood pressure cuff and pulse oximeter.~ The patient was placed prone on the procedure table. Both hips were cleansed using Betadine as a cleansing solution. C-arm fluoroscopy was used to view the right sacroiliac joint.~ The skin and subcutaneous tissues were anesthetized using lidocaine 1.5% and a 25-gauge needle.~ After this, a 22-gauge spinal needle was inserted under fluoroscopic guidance into the inferior aspect of the right sacroiliac joint.~ Omnipaque dye was injected and good spread was seen throughout the joint.~ After this, approximately 5 mL of bupivacaine, 0.25% and Depo-Medrol, 40 mg was incrementally injected into the right sacroiliac joint. We then moved to the left sacroiliac joint.~ The skin and subcutaneous tissues were anesthetized using lidocaine 1.5% and a 25-gauge needle.~ After this, a 22- gauge spinal needle was inserted under fluoroscopic guidance into the inferior aspect of the left sacroiliac joint.~ Omnipaque dye was injected and good spread was seen throughout the joint. After this, approximately 5 mL of bupivacaine, 0.25% and Depo-Medrol, 40 mg was incrementally injected into the left sacroiliac joint.~ The patient tolerated the procedure well with no complications. The patient was observed in the Pain Clinic and then was discharged home neurologically intact. Plan and Disposition:: Patient was discharged without incident.
[2023-10-11 13:46] VITALS: BP 148/97; PULSE 115; RESP 18; O2SAT 97
[2023-10-11 13:52] VITALS: BP 134/94; PULSE 108; RESP 18; O2SAT 98
--- NOTE | 2023-10-11 14:09 | PC.NURSE ---
[id number] collected labs via venipuncture stick in left ac with butterfly needle; pt to wait on results for possible therapeutic phlebotomy if hct >50
[2023-10-11 14:16] LABS: Hematocrit 51.1 % (42.0-52.0); Hemoglobin 16.9 g/dL (14.1-18.0)
--- NOTE | 2023-10-11 14:20 | PC.NURSE ---
1420-pt refused therapeutic phlebotomy for hct 51.1;pt to return in 1 month for lab redraw
== END 2023-10-11 13:53 | disposition home or self-care (01) ==
PROVIDERS: Urology; PCP Internal Medicine; Visit Provider Nurse Anesthetist, Certified Registered
DX: M46.1 Sacroiliitis, not elsewhere classified (principal)
CPT/HCPCS: 27096; 36415; 85014; 85018; G0260; J1010

== ENCOUNTER 2023-10-26 13:06 | Outpatient (POV) | payer OTHER, SELFPAY ==
[2023-10-26 13:43] VITALS: BP 130/85; PULSE 115; RESP 16; O2SAT 95; BMI 34.8
--- NOTE | 2023-10-26 14:39 | A.OFFVIS_ITS ---
[facility] Disclaimer: The information contained in this section may have been updated after the patient was seen, as this information can be updated by other users. Medical History Acute otitis media with effusion of left ear Inverted papilloma of nasal cavity Nerve compression Carpal tunnel syndrome Bursitis Arthritis Bulging disc Sleep apnea History of COVID-19 Sinus headache History of back pain History of diverticulitis Perforated nasal septum Obstructive sleep apnea syndrome I will discuss this with him when he returns. This is contributing to his thrombocytosis. Inverted papilloma of lateral nasal wall Hypogonadism in male Chronic pain Singh had neck MRIs, lower back MRIs, hip MRIs and other evaluations. He has significant disease in all these locations. He is following with orthopedics at [facility] as well as Dr. Payne in the pain clinic here at [facility]. I will refill his medications for now as he clearly has triggers for his pain issues. Will increase his hydrocodone/APAP to 3 times daily. Pulmonary HTN Sinus problem Heart murmur Overweight (BMI 25.0-29.9) Hypertension Patient has not taken the amlodipine because it causes lower extremity edema. He is on hydrochlorothiazide for his blood pressure not for the swelling in his lower extremities I imagine. Additionally he is on lisinopril. We will stop the amlodipine, we will stop the hydrochlorothiazide. Will increase his lisinopril to 80 mg/day. Will add chlorthalidone 25 mg/day. I want him to record his blood pressures bring those back with him and we will see him in 2 to 3 weeks. 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 Today he rates his pain a 6 out of 10. He states that he has had at least 50% improvement to 80% from these injections. He does state that he is still experiencing low back pain that is more prominent going down into his legs. He does state that this pain goes down below his knees but he does notice this more at night. He does describe it as an aching, throbbing sensation with still with numbness into the extremities. He does state the pain interferes with his ability perform activities of daily living such as cooking and cleaning. Patient does state overall he feels like he has gotten significant improvement with the different combinations that our office has provided and he is much more functional. Patient is interested in additional injection therapy. He is prescribed gabapentin and [place] from an outside provider. Patient does also mention today that he did notice a recent rash that popped at along his left shoulder that he is unsure if this had anything to do with his recent shoulder surgery and the hardware they put in or not. He states he is only used hydrocortisone cream in the last 2 days and denies rash in any other areas. His Jose has been reviewed and is appropriate. Review of Systems: General: No recent weight changes, no fever, no sleep disturbances Respiratory: No cough, no shortness of air, no recurring pulmonary infections Cardiovascular/peripheral vascular: No chest pain, no palpitations, no edema, no shortness of breath Gastrointestinal: No new onset incontinence, normal bowel movements reported Genitourinary: No new onset incontinence Musculoskeletal: Low back pain, bilateral leg pain Psychiatric: [Normal mood/affect] Neurological: [Denies weakness in extremities], [denies balance issues] Pain at rest (0-10 scale): 6 Objective Objective:: Physical Exam: General: Alert and oriented x3, no acute distress, pleasant and cooperative Lungs: Respirations even and unlabored, symmetrical chest expansion Eyes: PERRL Musculoskeletal: Flexion and extension of lumbar [spine] somewhat guarded secondary to pain, [antalgic gait noted] Neurological: Speech clear, no gross sensory deficit Has patient had previous pain injection?: Yes Percent improvement in pain since last injection: 50 to 80% Conservative treatment options previously tried: Home exercise plan Length of treatment: Longer than 6 weeks and Prescription medications Length of treatment: Longer than 6 weeks Meds Home Medications and Allergies Home Medications ?Medication ?Instructions ?Recorded ?Confirmed ?Type sildenafil (pulm.hypertension) 20 20 mg PO DAILY PRN sexual activity 05/20/21 10/26/23 Rx mg tablet #40 tabs testosterone cypionate 200 mg/mL 200 mg IM Q6 Supplement 01/12/22 10/26/23 History intramuscular oil amitriptyline 25 mg tablet 25 mg PO DAILY 90 days #90 tabs 06/28/23 10/26/23 Rx chlorthalidone 25 mg tablet 25 mg PO DAILY 30 days #30 tabs 06/28/23 10/26/23 Rx fexofenadine 180 mg tablet 180 mg PO DAILY ALLERGIES #60 tabs 06/28/23 10/26/23 Rx nicotine 21 mg/24 hr daily 1 patch transdermal DAILY SMOKING 06/28/23 10/26/23 History transdermal patch CESSATION hydrocodone 7.5 mg-acetaminophen 1 tab PO Q6H PRN pain 30 days #90 07/13/23 10/26/23 Rx 325 mg tablet tabs nicotine (polacrilex) 4 mg gum 4 mg buccal Q2H #110 ea 07/13/23 10/26/23 Rx amantadine HCl 100 mg tablet 100 mg PO DIRECTED 09/14/23 10/26/23 History metronidazole 500 mg tablet 500 mg PO TID diverticulitis 10 09/16/23 10/26/23 Rx days #30 tabs lisinopril 40 mg tablet See Rx Instructions .Route 09/26/23 10/26/23 Rx .COMPLEX #60 tabs gabapentin 800 mg tablet 800 mg PO TID Pain 30 days #90 tabs 09/28/23 10/26/23 Rx hydrocodone 7.5 mg-acetaminophen 1 tab PO Q8H PRN pain 30 days #90 10/10/23 10/26/23 Rx 325 mg tablet tabs New Prescriptions to Start Prescriptions: Allergies Allergy/AdvReac Type Severity Reaction Status Date / Time No Known Allergies Allergy Verified 09/14/23 12:56 Assessment and Plan *Assessment and plan (1) Degenerative disc disease, lumbar: Status: Acute Category: Medical Code(s): M51.36 - Other intervertebral disc degeneration, lumbar region (2) Lumbar radiculopathy: Status: Acute Category: Medical Code(s): M54.16 - Radiculopathy, lumbar region Plan Patient is experiencing worsening pain with radiating symptoms down into his lower extremities of numbness and tingling. I did discuss with the patient that he may benefit from a lumbar epidural steroid injection. Risk and benefits were discussed with the patient and he would like to proceed forward with this plan of care. Patient has tried and failed conservative therapy including oral medication, heat and ice, topicals, continued at home stretching exercise for longer than 6 weeks between injections. Patient will be scheduled for an LESI L5-S1 under fluoroscopy. Patient has been instructed to contact the clinic with any concerns before the next appointment. Dr. Payne has reviewed this note and agrees with this plan of care. This note was dictated using voice recognition software and make contain errors or omissions. All injections are used with Lidocaine or Bupivacaine and Depo Medrol.
== END 2023-10-26 23:59 | disposition home or self-care (01) ==
LOC: SC.PAIN 13:07
PROVIDERS: Visit Provider Nurse Practitioner Family
DX: M51.16 Intervertebral disc disorders with radiculopathy, lumbar region (principal); F17.210 Nicotine dependence, cigarettes, uncomplicated; Z79.899 Other long term (current) drug therapy; Z73.89 Other problems related to life management difficulty
CPT/HCPCS: 99212; G0463

== ENCOUNTER 2023-11-21 14:48 | Outpatient (POV) | payer OTHER, SELFPAY ==
[2023-11-21 15:00] VITALS: BP 129/90; PULSE 118; RESP 16; O2SAT 97; BMI 35.9
--- NOTE | 2023-11-21 16:07 | A.OFFVIS_ITS ---
[facility] Disclaimer: The information contained in this section may have been updated after the patient was seen, as this information can be updated by other users. Medical History (Updated 11/14/23 @ 08:01 by Jacques Maher DO) Acute otitis media with effusion of left ear Inverted papilloma of nasal cavity Nerve compression Carpal tunnel syndrome Bursitis Arthritis Bulging disc Sleep apnea History of COVID-19 Sinus headache History of back pain History of diverticulitis Perforated nasal septum Obstructive sleep apnea syndrome Inverted papilloma of lateral nasal wall Hypogonadism in male Chronic pain Pulmonary HTN Sinus problem Heart murmur Overweight (BMI 25.0-29.9) Hypertension Surgical History Hx of tonsillectomy History of surgery History of hip surgery Hx of splenectomy Hx of hernia repair History of cholecystectomy H/O arthroscopy Family History Other Family history of hyperlipidemia Family history of hypertension Social History Smoking Status: Current every day smoker tobacco type: cigarettes packs per day: 1 second hand exposure: Yes alcohol intake: current alcohol intake frequency: a few times a week substance use type: denies use current occupational status: unemployed Travel in the last 8 weeks: None housing: house 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 Today he rates his pain a 7 out of 10. He denies any new trauma or injury. He states his pain is still all throughout his low back that does radiate down both his legs with numbness and tingling. He does describe it as an aching, throbbing sensation with still with numbness into the extremities. He does state the pain interferes with his ability perform activities of daily living such as cooking and cleaning. Patient does state overall he feels like he has gotten significant improvement with the different combinations that our office has provided and he is much more functional. Patient has had a prior left transforaminal injection that did provide 60% lasting longer than 2 weeks back in February 2023. Patient is interested in additional injection therapy. He is prescribed gabapentin and [place] from an outside provider. His Jose has been reviewed and is appropriate. Review of Systems: General: No recent weight changes, no fever, no sleep disturbances Respiratory: No cough, no shortness of air, no recurring pulmonary infections Cardiovascular/peripheral vascular: No chest pain, no palpitations, no edema, no shortness of breath Gastrointestinal: No new onset incontinence, normal bowel movements reported Genitourinary: No new onset incontinence Musculoskeletal: Low back pain, bilateral leg pain Psychiatric: [Normal mood/affect] Neurological: [Denies weakness in extremities], [denies balance issues] Pain at rest (0-10 scale): 7 Objective Objective:: Physical Exam: General: Alert and oriented x3, no acute distress, pleasant and cooperative Lungs: Respirations even and unlabored, symmetrical chest expansion Eyes: PERRL Musculoskeletal: Flexion and extension of lumbar [spine] somewhat guarded secondary to pain, [antalgic gait noted] Neurological: Speech clear, no gross sensory deficit Has patient had previous pain injection?: No Conservative treatment options previously tried: Home exercise plan Length of treatment: Longer than 12 weeks Meds Home Medications and Allergies Home Medications ?Medication ?Instructions ?Recorded ?Confirmed ?Type sildenafil (pulm.hypertension) 20 20 mg PO DAILY PRN sexual activity 05/20/21 11/21/23 Rx mg tablet #40 tabs testosterone cypionate 200 mg/mL 200 mg IM Q6 Supplement 01/12/22 11/21/23 History intramuscular oil amitriptyline 25 mg tablet 25 mg PO DAILY 90 days #90 tabs 06/28/23 11/21/23 Rx chlorthalidone 25 mg tablet 25 mg PO DAILY 30 days #30 tabs 06/28/23 11/21/23 Rx fexofenadine 180 mg tablet 180 mg PO DAILY ALLERGIES #60 tabs 06/28/23 11/21/23 Rx nicotine 21 mg/24 hr daily 1 patch transdermal DAILY SMOKING 06/28/23 11/21/23 History transdermal patch CESSATION hydrocodone 7.5 mg-acetaminophen 1 tab PO Q6H PRN pain 30 days #90 07/13/23 11/21/23 Rx 325 mg tablet tabs amantadine HCl 100 mg tablet 100 mg PO DIRECTED 09/14/23 11/21/23 History metronidazole 500 mg tablet 500 mg PO TID diverticulitis 10 09/16/23 11/21/23 Rx days #30 tabs hydrocodone 7.5 mg-acetaminophen 1 tab PO Q8H PRN pain 30 days #90 10/10/23 11/10/23 Rx 325 mg tablet tabs gabapentin 800 mg tablet 800 mg PO TID Pain 30 days #90 tabs 10/31/23 11/21/23 Rx lisinopril 40 mg tablet See Rx Instructions .Route 11/01/23 11/21/23 Rx .COMPLEX #60 tabs rosuvastatin 10 mg tablet 10 mg PO DAILY #30 tabs 11/10/23 11/21/23 Rx New Prescriptions to Start Prescriptions: Allergies Allergy/AdvReac Type Severity Reaction Status Date / Time No Known Allergies Allergy Verified 11/10/23 13:02 Assessment and Plan *Assessment and plan (1) Lumbar radiculopathy: Status: Acute Category: Medical Code(s): M54.16 - Radiculopathy, lumbar region (2) Degenerative disc disease, lumbar: Status: Acute Category: Medical Code(s): M51.36 - Other intervertebral disc degeneration, lumbar region Plan Patient continues to have significant pain throughout his low back and legs with numbness and tingling that does interfere with his ability perform activities of daily living such as cooking and cleaning. Patient has had significant relief with prior epidurals specifically a left transforaminal epidural that was done back in February that did provide 60% improvement lasting 2 weeks. Patient did have improved function to where he was able to decrease his oral medications and also decrease his physical therapy. Patient was reviewed over the risk and benefits of the epidural injection since he is now experiencing pain going down both his legs with numbness and tingling. Patient would like to proceed forward with this plan of care. Patient is not currently on blood thinners. Patient has tried and failed conservative therapy including oral medication, heat and ice, topicals, continued at home stretching exercise for longer than 6 weeks as well as recent physical therapy. Patient is on prescribed gabapentin and [place] from an outside provider. Patient was able to decrease some of this medication when he previously had his transforaminal injection. We will resubmit for the lumbar epidural steroid injection L5-S1 under fluoroscopy. Patient has been instructed to contact the clinic with any concerns before the next appointment. Dr. Payne has reviewed this note and agrees with this plan of care. This note was dictated using voice recognition software and make contain errors or omissions. All injections are used with Lidocaine or Bupivacaine and Depo Medrol.
== END 2023-11-21 23:59 | disposition home or self-care (01) ==
LOC: SC.PAIN 14:48
PROVIDERS: PCP Internal Medicine; Visit Provider Nurse Practitioner Family
DX: M51.16 Intervertebral disc disorders with radiculopathy, lumbar region (principal); F17.210 Nicotine dependence, cigarettes, uncomplicated; Z73.89 Other problems related to life management difficulty; Z79.899 Other long term (current) drug therapy
CPT/HCPCS: 99212; G0463

== ENCOUNTER 2023-12-13 13:28 | Day surgery (SDC) | payer OTHER, SELFPAY ==
[2023-12-13 14:22] VITALS: BP 110/85; PULSE 112; RESP 16; TEMP 36.6; O2SAT 95; BMI 33.5
--- NOTE | 2023-12-13 14:43 | EXP.PAIN.PRO ---
Procedure Date: 12/13/23 Time: 14:30 Anesthesiologist:: Derek Chaves CRNA Complications:: None Pre-procedure Diagnosis:: Degenerative disc lumbar spine multilevels. Lumbar radiculopathy. Post-procedure Diagnosis:: Same. Indications for Procedure:: Patient very pleasant 53-year-old male comes our clinic today for lumbar epidural steroid injection at the L5-S1 level. Patient describes low back pain as constant, dull, aching. Patient also reports bilateral hip and leg radicular symptoms. He rates his pain 6/10. Procedure Details:: Procedure: Lumbar epidural steroid injection under fluoroscopy Informed consent was obtained and the risks and benefits of the procedure were explained to the patient. The patient was taken to the procedure room and noninvasive monitors placed, including noninvasive blood pressure cuff and pulse oximeter. The back was viewed using C-arm Fluoroscopy and prepped using Chloraprep as a cleansing solution and the L5-S1 interspace was palpated. Skin and subcutaneous tissues were anesthetized using lidocaine 1.5% and a 25-gauge needle. After this, an 18-gauge Touhy epidural needle was placed into the L5-S1 interspace and advanced using fluoroscopic guidance and loss of resistance to air until the epidural space was encountered. After confirmation of needle placement in the epidural space, with dye, a solution containing normal saline, 3 mL and Depo-Medrol 80 mg were incrementally injected into the lumbar epidural space. The patient tolerated the procedure well with no complications. The patient was observed in the Pain Clinic and then discharged home neurologically intact. Plan and Disposition:: Patient was discharged without incident.
[2023-12-13 14:46] VITALS: BP 131/87; PULSE 100; RESP 18; O2SAT 98
[2023-12-13] MEDS: methylPREDNISolone ACETATE 80MG/ML VIAL 80 MG (14:46)
[2023-12-13 14:47] VITALS: BP 131/87; PULSE 100; RESP 18; O2SAT 98
[2023-12-13 14:56] VITALS: BP 132/73; PULSE 110; RESP 18; O2SAT 93
== END 2023-12-13 14:56 | disposition home or self-care (01) ==
PROVIDERS: PCP Internal Medicine; Visit Provider Nurse Anesthetist, Certified Registered
DX: M51.16 Intervertebral disc disorders with radiculopathy, lumbar region (principal)
CPT/HCPCS: 62323; J1010

== ENCOUNTER 2023-12-21 13:00 | Outpatient (RCR) | payer OTHER, SELFPAY | END 2023-12-21 23:59 | disposition home or self-care (01) | LOC: OT 13:00 | PROVIDERS: Visit Provider Physician Assistant | DX: M25.512 Pain in left shoulder (principal); M75.122 Complete rotator cuff tear or rupture of left shoulder, not specified as traumatic | CPT/HCPCS: 97010; 97014; 97035; 97110; 97140; 97164; 97166; 97530; G0283 ==

== ENCOUNTER 2023-12-27 13:38 | Outpatient (CLI) | payer OTHER, SELFPAY ==
[2023-12-27 13:44] VITALS: BMI 33.5
--- NOTE | 2023-12-27 13:55 | PC.NURSE ---
1355-collected labs via venipuncture stick in left hand with butterfly needle;pt to wait on results for possible therapeutic phlebotomy.
[2023-12-27 14:06] LABS: Hematocrit 54.3 % (42.0-52.0); Hemoglobin 17.4 g/dL (14.1-18.0)
[2023-12-27 14:25] VITALS: BP 161/105; PULSE 92; RESP 18; O2SAT 95
[2023-12-27 14:55] VITALS: BP 147/103; PULSE 95; RESP 18; O2SAT 95
== END 2023-12-27 14:55 | disposition home or self-care (01) ==
LOC: INF 13:39
PROVIDERS: PCP Internal Medicine; Visit Provider Urology
DX: E29.1 Testicular hypofunction (principal)
CPT/HCPCS: 36415; 85014; 85018; 99195

== ENCOUNTER 2024-01-12 11:38 | Outpatient (POV) | payer OTHER, SELFPAY ==
[2024-01-12 11:58] VITALS: BP 109/76; PULSE 95; RESP 18; O2SAT 96; BMI 33.4
--- NOTE | 2024-01-12 12:22 | EXP.PAIN.SOA ---
[facility] Disclaimer: The information contained in this section may have been updated after the patient was seen, as this information can be updated by other users. Medical History Acute otitis media with effusion of left ear Inverted papilloma of nasal cavity Nerve compression Carpal tunnel syndrome Bursitis Arthritis Bulging disc Sleep apnea History of COVID-19 Sinus headache History of back pain History of diverticulitis Perforated nasal septum Obstructive sleep apnea syndrome Inverted papilloma of lateral nasal wall Hypogonadism in male Chronic pain Pulmonary HTN Sinus problem Heart murmur Overweight (BMI 25.0-29.9) Hypertension Surgical History Hx of tonsillectomy History of surgery History of hip surgery Hx of splenectomy Hx of hernia repair History of cholecystectomy H/O arthroscopy Family History Other Family history of hyperlipidemia Family history of hypertension Social History Smoking Status: Current every day smoker tobacco type: cigarettes packs per day: 1 second hand exposure: Yes alcohol intake: current alcohol intake frequency: a few times a week substance use type: denies use current occupational status: unemployed Travel in the last 8 weeks: None housing: house 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 He states that this injection did great providing at least 50% improvement if not more however that he went fishing 2 days last week and it significantly aggravated his overall back symptoms. He states that overall his hips are still doing good but from his low back up to his neck he is having worsening pain. Patient has been dealing with this ongoing chronic pain for years and does state today that he has thought more about the stimulator and pump options that we have discussed in the past and does think that he would like to proceed forward with 1 of those options. Patient does state that he has a sister who does have the stimulator and thinks he would like to try this first. Patient is prescribed [place] from an outside provider and compounded cream from our office. His Jose has been reviewed and is appropriate. Review of Systems: General: No recent weight changes, no fever, no sleep disturbances Respiratory: No cough, no shortness of air, no recurring pulmonary infections Cardiovascular/peripheral vascular: No chest pain, no palpitations, no edema, no shortness of breath Gastrointestinal: No new onset incontinence, normal bowel movements reported Genitourinary: No new onset incontinence Musculoskeletal: Low back pain Psychiatric: [Normal mood/affect] Neurological: [Denies weakness in extremities], [denies balance issues] Pain at rest (0-10 scale): 9 Objective Objective:: Physical Exam: General: Alert and oriented x3, no acute distress, pleasant and cooperative Lungs: Respirations even and unlabored, symmetrical chest expansion Eyes: PERRL Musculoskeletal: Flexion and extension of lumbar [spine] somewhat guarded secondary to pain, [antalgic gait noted] Neurological: Speech clear, no gross sensory deficit Has patient had previous pain injection?: Yes Percent improvement in pain since last injection: 50% Conservative treatment options previously tried: Home exercise plan Length of treatment: Longer than 12 weeks Meds Home Medications and Allergies Home Medications ?Medication ?Instructions ?Recorded ?Confirmed ?Type sildenafil (pulm.hypertension) 20 20 mg PO DAILY PRN sexual activity 05/20/21 01/12/24 Rx mg tablet #40 tabs testosterone cypionate 200 mg/mL 200 mg IM Q6 Supplement 01/12/22 01/12/24 History intramuscular oil amitriptyline 25 mg tablet 25 mg PO DAILY 90 days #90 tabs 06/28/23 01/12/24 Rx chlorthalidone 25 mg tablet 25 mg PO DAILY 30 days #30 tabs 06/28/23 01/12/24 Rx fexofenadine 180 mg tablet 180 mg PO DAILY ALLERGIES #60 tabs 06/28/23 01/12/24 Rx nicotine 21 mg/24 hr daily 1 patch transdermal DAILY SMOKING 06/28/23 01/12/24 History transdermal patch CESSATION amantadine HCl 100 mg tablet 100 mg PO DIRECTED 09/14/23 01/12/24 History metronidazole 500 mg tablet 500 mg PO TID diverticulitis 09/16/23 01/12/24 Rx days #30 tabs rosuvastatin 10 mg tablet 10 mg PO DAILY #30 tabs 11/10/23 01/12/24 Rx hydrocodone 7.5 mg-acetaminophen 1 tab PO Q6H PRN pain 30 days #120 12/14/23 01/12/24 Rx 325 mg tablet tabs lisinopril 40 mg tablet See Rx Instructions .Route 12/15/23 01/12/24 Rx .COMPLEX #60 tabs gabapentin 800 mg tablet See Rx Instructions .Route 01/02/24 01/12/24 Rx .COMPLEX #90 tabs New Prescriptions to Start Prescriptions: Allergies Allergy/AdvReac Type Severity Reaction Status Date / Time No Known Allergies Allergy Verified 12/13/23 14:09 Assessment and Plan *Assessment and plan (1) Lumbar radiculopathy: Status: Acute Category: Medical Code(s): M54.16 - Radiculopathy, lumbar region (2) Chronic pain: Status: Acute Qualifiers: Chronic pain type: other chronic pain Qualified Code(s): G89.29 - Other chronic pain Category: Medical Code(s): G89.29 - Other chronic pain Plan Patient was counseled that I will order him a psychological evaluation and if he is deemed an appropriate candidate we will proceed forward with the stimulator trial in future. Patient has tried and failed conservative therapy including oral medication, heat and ice, topicals, physical therapy, continued at home stretching exercise for longer than 12 weeks and continued injection therapy. Patient will return to clinic in 1 month for reevaluation of symptoms and plan of care. Patient has been instructed to contact the clinic with any concerns before the next appointment. Dr. Payne has reviewed this note and agrees with this plan of care. This note was dictated using voice recognition software and make contain errors or omissions. All injections are used with Lidocaine or Bupivacaine and Depo Medrol.
== END 2024-01-12 23:59 | disposition home or self-care (01) ==
LOC: SC.PAIN 11:39
PROVIDERS: PCP Internal Medicine; Visit Provider Nurse Practitioner Family
DX: M54.16 Radiculopathy, lumbar region (principal); G89.29 Other chronic pain; F17.210 Nicotine dependence, cigarettes, uncomplicated
CPT/HCPCS: 99212; G0463

== ENCOUNTER 2024-02-13 11:00 | Outpatient (POV) | payer OTHER, SELFPAY ==
--- NOTE | 2024-02-13 11:48 | EXP.PAIN.SOA ---
[facility] Disclaimer: The information contained in this section may have been updated after the patient was seen, as this information can be updated by other users. Medical History Acute otitis media with effusion of left ear Inverted papilloma of nasal cavity Nerve compression Carpal tunnel syndrome Bursitis Arthritis Bulging disc Sleep apnea History of COVID-19 Sinus headache History of back pain History of diverticulitis Perforated nasal septum Obstructive sleep apnea syndrome I will discuss this with him when he returns. This is contributing to his thrombocytosis. Inverted papilloma of lateral nasal wall Hypogonadism in male Chronic pain Pulmonary HTN Sinus problem Heart murmur Overweight (BMI 25.0-29.9) Hypertension Surgical History Hx of tonsillectomy History of surgery NOSE SX X3 History of hip surgery PINS AND SCREWS Hx of splenectomy Hx of hernia repair X3 History of cholecystectomy H/O arthroscopy Family History Other Family history of hyperlipidemia Family history of hypertension Social History Smoking Status: Current every day smoker tobacco type: cigarettes packs per day: 1 second hand exposure: Yes alcohol intake: current alcohol intake frequency: a few times a week substance use type: denies use current occupational status: unemployed Travel in the last 8 weeks: None housing: house 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 Today he rates his pain a 6 out of 10. He denies any new trauma or injury. He does state from her last visit he has had worsening of the rash that was present on his left shoulder and arm. Patient states about 3 days ago he had an episode where he got mud on him and that ended that having it on about 45 minutes before taking a shower. He states that by the time he went to bed he woke up in the middle the night with intense pain. He states that it was even more like a honeycomb draining lesions. He states that he ended up using his compounded cream and that it did help however he does have the rash going across his low back now. Patient is going to his primary care today and they have already tried getting him in for dermatology consult. His Jose has been reviewed and is appropriate. Review of Systems: General: No recent weight changes, no fever, no sleep disturbances Respiratory: No cough, no shortness of air, no recurring pulmonary infections Cardiovascular/peripheral vascular: No chest pain, no palpitations, no edema, no shortness of breath Gastrointestinal: No new onset incontinence, normal bowel movements reported Genitourinary: No new onset incontinence Musculoskeletal: Low back pain Psychiatric: [Normal mood/affect] Neurological: [Denies weakness in extremities], [denies balance issues] Pain at rest (0-10 scale): 6 Objective Objective:: Physical Exam: General: Alert and oriented x3, no acute distress, pleasant and cooperative Lungs: Respirations even and unlabored, symmetrical chest expansion Eyes: PERRL Musculoskeletal: Flexion and extension of lumbar [spine] somewhat guarded secondary to pain, [antalgic gait noted] Neurological: Speech clear, no gross sensory deficit Skin: Diffuse papular rash across left upper arm and across low back bilaterally Has patient had previous pain injection?: No Conservative treatment options previously tried: Home exercise plan Length of treatment: Longer than 12 weeks Meds Home Medications and Allergies Home Medications ?Medication ?Instructions ?Recorded ?Confirmed ?Type sildenafil (pulm.hypertension) 20 20 mg PO DAILY PRN sexual activity 05/20/21 01/12/24 Rx mg tablet #40 tabs testosterone cypionate 200 mg/mL 200 mg IM Q6 Supplement 01/12/22 01/12/24 History intramuscular oil amitriptyline 25 mg tablet 25 mg PO DAILY 90 days #90 tabs 06/28/23 01/12/24 Rx chlorthalidone 25 mg tablet 25 mg PO DAILY 30 days #30 tabs 06/28/23 01/12/24 Rx fexofenadine 180 mg tablet 180 mg PO DAILY ALLERGIES #60 tabs 06/28/23 01/12/24 Rx nicotine 21 mg/24 hr daily 1 patch transdermal DAILY SMOKING 06/28/23 01/12/24 History transdermal patch CESSATION amantadine HCl 100 mg tablet 100 mg PO DIRECTED 09/14/23 01/12/24 History metronidazole 500 mg tablet 500 mg PO TID diverticulitis 10 09/16/23 01/12/24 Rx days #30 tabs rosuvastatin 10 mg tablet 10 mg PO DAILY #30 tabs 11/10/23 01/12/24 Rx gabapentin 800 mg tablet 800 mg PO TID 30 days #90 tabs 01/12/24 01/12/24 Rx hydrocodone 7.5 mg-acetaminophen 1 tab PO Q6H PRN pain 30 days #120 01/12/24 01/12/24 Rx 325 mg tablet tabs hydrocodone 7.5 mg-acetaminophen 1 tab PO Q6H PRN pain 30 days #120 01/12/24 01/12/24 Rx 325 mg tablet tabs lisinopril 40 mg tablet See Rx Instructions .Route 01/17/24 Rx .COMPLEX #60 tabs prednisone 10 mg tablets in a dose See Rx Instructions PO PER PKG DIR 02/09/24 Rx pack #21 tabs New Prescriptions to Start Prescriptions: Allergies Allergy/AdvReac Type Severity Reaction Status Date / Time No Known Allergies Allergy Verified 01/12/24 13:03 Assessment and Plan *Assessment and plan (1) Lumbar radiculopathy: Status: Acute Category: Medical Code(s): M54.16 - Radiculopathy, lumbar region (2) Bilateral sacroiliitis: Status: Acute Category: Medical Code(s): M46.1 - Sacroiliitis, not elsewhere classified Plan I did discuss with the patient that he was deemed an appropriate candidate for the stimulator or pump trial. Patient was reviewed due to the ongoing rash and then worsening effects of it that I would wait until he has seen dermatology to see what is going on before proceeding forward with the trial. Patient agrees with this plan of care. Patient will return to clinic in 1 month for reevaluation of symptoms and plan of care. Patient has been instructed to contact the clinic with any concerns before the next appointment. Dr. Payne has reviewed this note and agrees with this plan of care. This note was dictated using voice recognition software and make contain errors or omissions. All injections are used with Lidocaine or Bupivacaine and Depo Medrol.
[2024-02-13 11:58] VITALS: BP 106/74; PULSE 113; RESP 18; O2SAT 95; BMI 34.4
[2024-02-13 18:50] LABS: Basophils # 0.1 K/mm3 (0-0.2); Eosinophils # 0.1 K/mm3 (0.0-0.4); Hematocrit 55.3 % (42.0-52.0); Lymphocytes # 2.2 K/mm3 (0.7-4.5); Lymphocytes % 15.3 % (10-50); Mean Corpuscular HGB Conc 32.8 g/dL (31.8-35.4); Mean Corpuscular Hemoglobin 32.4 pg (27.0-31.2); Mean Corpuscular Volume 98.7 fl (80-94); Mean Platelet Volume 8.1 fl (7.4-10.4); Monocytes # 0.9 K/mm3 (0.1-1.0); Monocytes % 6.1 % (1.7-9.3); Neutrophils # 11.2 K/mm3 (1.8-7.8); Neutrophils % 76.7 % (37.0-80.0); Platelet Count 529 K/mm3 (142-424); White Blood Count 14.5 K/mm3 (4.8-10.8)
[2024-02-13 19:00] LABS: Hemoglobin 18.2 g/dL (14.1-18.0)
[2024-02-13 19:06] LABS: Albumin Level 4.8 g/dl (3.5-5.0)
[2024-02-13 19:09] LABS: Aspartate Amino Transferase 59 U/L (17-59)
[2024-02-13 19:10] LABS: Albumin/Globulin Ratio 2.3 (1.1-1.8); Alkaline Phosphatase 91 U/L (38-126); Bilirubin,Total 0.7 mg/dl (0.2-1.3); Globulin 2.1 g/dL (1.3-3.2); HDL Cholesterol 31 mg/dl (40-60); Total Protein,Serum 6.9 g/dl (6.3-8.2)
[2024-02-13 19:39] LABS: Chloride 101 mmol/L (98-107); Sodium 133 mmol/L (136-145)
[2024-02-13 19:41] LABS: Alanine Aminotransferase 96 U/L (12-78); Anion Gap 19.1 mEq/L (5-15); Carbon Dioxide 19 mmol/L (22.0-30.0)
[2024-02-13 19:42] LABS: Calcium 10.3 mg/dl (8.4-10.2); Chol/HDL Ratio 4.8 (1-3.5); Cholesterol 150 mg/dl (140-200); Glucose 142 mg/dl (74-100); Triglycerides 299 mg/dl (30-150); VLDL Cholesterol 60 mg/dL (0-40)
[2024-02-13 19:53] LABS: Direct LDL Cholesterol 77.65 mg/dL (100-129)
[2024-02-13 19:59] LABS: Blood Urea Nitrogen 27 mg/dl (9-20); Creatinine Clearance Estimated 148 mL/min (50-200); Estimated Glomerular Filt Rate 89 ml/min (>60); GFR (African American) 107 ML/MIN (>60)
[2024-02-13 21:03] LABS: Potassium 6.1 mmoL/L (3.5-5.1)
[2024-02-13 21:35] LABS: Hemoglobin A1C 5.9 % (4.0-6.0)
== END 2024-02-13 23:59 | disposition home or self-care (01) ==
LOC: SC.PAIN 11:01
PROVIDERS: PCP Internal Medicine; Visit Provider Nurse Practitioner Family
DX: M54.16 Radiculopathy, lumbar region (principal); M46.1 Sacroiliitis, not elsewhere classified; E87.5 Hyperkalemia; R53.83 Other fatigue; E66.9 Obesity, unspecified; Z13.1 Encounter for screening for diabetes mellitus; F17.210 Nicotine dependence, cigarettes, uncomplicated; Z68.33 Body mass index [BMI] 33.0-33.9, adult
CPT/HCPCS: 80053; 80061; 83036; 85025; 99212; G0463

== ENCOUNTER 2024-02-15 09:59 | Outpatient (CLI) | payer OTHER, SELFPAY ==
[2024-02-15 19:15] LABS: Alanine Aminotransferase 67 U/L (12-78); Albumin Level 4.4 g/dl (3.5-5.0); Albumin/Globulin Ratio 2.2 (1.1-1.8); Alkaline Phosphatase 105 U/L (38-126); Anion Gap 16.6 mEq/L (5-15); Aspartate Amino Transferase 34 U/L (17-59); Bilirubin,Total 0.6 mg/dl (0.2-1.3); Blood Urea Nitrogen 25 mg/dl (9-20); Calcium 9.7 mg/dl (8.4-10.2); Carbon Dioxide 19 mmol/L (22.0-30.0); Chloride 105 mmol/L (98-107); Estimated Glomerular Filt Rate 78 ml/min (>60); GFR (African American) 95 ML/MIN (>60); Glucose 121 mg/dl (74-100); Potassium 5.6 mmoL/L (3.5-5.1); Sodium 135 mmol/L (136-145); Total Protein,Serum 6.4 g/dl (6.3-8.2)
[2024-02-15 19:27] LABS: C-Reactive Protein 4.2 mg/L (0-4)
[2024-02-15 20:02] LABS: Vitamin B12 683 pg/mL (239-931)
== END 2024-02-15 23:59 | disposition home or self-care (01) ==
LOC: LAB.DROPOF 02-16 09:59
PROVIDERS: PCP Internal Medicine; Visit Provider Internal Medicine
DX: B35.1 Tinea unguium (principal); N52.9 Male erectile dysfunction, unspecified; E34.9 Endocrine disorder, unspecified; E78.00 Pure hypercholesterolemia, unspecified; E87.5 Hyperkalemia; K52.9 Noninfective gastroenteritis and colitis, unspecified
CPT/HCPCS: 80053; 82607; 86140; 87086; 87102; 87206; 87220

== ENCOUNTER 2024-04-11 14:02 | Outpatient (CLI) | payer OTHER, SELFPAY ==
[2024-04-11 14:18] VITALS: BMI 37.3
--- NOTE | 2024-04-11 14:23 | PC.NURSE ---
1423-collected labs via venipuncture stick in left ac; will wait on labs if hct >50 therapeutic phlebotomy to draw off 500ml
[2024-04-11 14:28] LABS: Hematocrit 53.2 % (42.0-52.0)
[2024-04-11 14:40] VITALS: BP 152/98; PULSE 96; RESP 19; O2SAT 94
[2024-04-11 15:09] LABS: Hemoglobin 18.2 g/dL (14.1-18.0)
[2024-04-11 15:33] VITALS: BP 196/97; PULSE 91; RESP 19; O2SAT 94
== END 2024-04-11 15:33 | disposition home or self-care (01) ==
LOC: LAB 14:10 → INF 14:13
PROVIDERS: Urology; PCP Internal Medicine; Visit Provider Internal Medicine
DX: R71.8 Other abnormality of red blood cells (principal)
CPT/HCPCS: 36415; 85014; 85018; 99195

== ENCOUNTER 2024-04-16 14:29 | Outpatient (POV) | payer OTHER, SELFPAY ==
[2024-04-16 15:07] VITALS: BP 109/72; PULSE 105; RESP 16; O2SAT 100; BMI 37.3
--- NOTE | 2024-04-16 15:44 | A.OFFVIS_ITS ---
[facility] Disclaimer: The information contained in this section may have been updated after the patient was seen, as this information can be updated by other users. Medical History Acute otitis media with effusion of left ear Inverted papilloma of nasal cavity Nerve compression Carpal tunnel syndrome Bursitis Arthritis Bulging disc Sleep apnea History of COVID-19 Sinus headache History of back pain History of diverticulitis Perforated nasal septum Obstructive sleep apnea syndrome I will discuss this with him when he returns. This is contributing to his thrombocytosis. Inverted papilloma of lateral nasal wall Hypogonadism in male Chronic pain Pulmonary HTN Sinus problem Heart murmur Overweight (BMI 25.0-29.9) Hypertension Surgical History Hx of tonsillectomy History of surgery NOSE SX X3 History of hip surgery PINS AND SCREWS Hx of splenectomy Hx of hernia repair X3 History of cholecystectomy H/O arthroscopy Family History Other Family history of hyperlipidemia Family history of hypertension Social History Smoking Status: Current every day smoker tobacco type: cigarettes packs per day: 1 second hand exposure: Yes alcohol intake: current alcohol intake frequency: a few times a week substance use type: denies use current occupational status: other Travel in the last 8 weeks: None housing: house 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 Today he rates his pain a 6 out of 10. He denies any new trauma or injury. He states he continues to have chronic pain throughout his low back that does radiate down into his lower extremities with numbness and tingling. He states that he does notice it more frequently with increased activity or walking. He does state it is fairly constant and does interfere with his ability perform activities of daily living such as cooking and cleaning. Patient is interested in injection therapy as well as does want to proceed forward with the spinal cord stimulator trial. Patient does state that he does have a dermatology appointment scheduled at the beginning of April for the mild rash that he did have on his shoulder. He states it has improved but still has some issues with it. Patient denies any pain with the rash. Patient has continued conservative treatment. His Jose has been reviewed and is appropriate. Review of Systems: General: No recent weight changes, no fever, no sleep disturbances Respiratory: No cough, no shortness of air, no recurring pulmonary infections Cardiovascular/peripheral vascular: No chest pain, no palpitations, no edema, no shortness of breath Gastrointestinal: No new onset incontinence, normal bowel movements reported Genitourinary: No new onset incontinence Musculoskeletal: Low back pain, bilateral leg pain Psychiatric: [Normal mood/affect] Neurological: [Denies weakness in extremities], [denies balance issues] Pain at rest (0-10 scale): 6 Objective Objective:: Physical Exam: General: Alert and oriented x3, no acute distress, pleasant and cooperative Lungs: Respirations even and unlabored, symmetrical chest expansion Eyes: PERRL Musculoskeletal: Flexion and extension of lumbar [spine] somewhat guarded secondary to pain, [antalgic gait noted] positive leg raise Neurological: Speech clear, no gross sensory deficit Has patient had previous pain injection?: No Conservative treatment options previously tried: Home exercise plan Length of treatment: Longer than 12 weeks Meds Home Medications and Allergies Home Medications ?Medication ?Instructions ?Recorded ?Confirmed ?Type sildenafil (pulm.hypertension) 20 20 mg PO DAILY PRN sexual activity 05/20/21 04/16/24 Rx mg tablet #40 tabs testosterone cypionate 200 mg/mL 200 mg IM Q6 Supplement 01/12/22 04/16/24 History intramuscular oil amitriptyline 25 mg tablet 25 mg PO DAILY 90 days #90 tabs 06/28/23 04/16/24 Rx nicotine 21 mg/24 hr daily 1 patch transdermal DAILY SMOKING 06/28/23 04/16/24 History transdermal patch CESSATION amantadine HCl 100 mg tablet 100 mg PO DIRECTED 09/14/23 04/16/24 History metronidazole 500 mg tablet 500 mg PO TID diverticulitis 10 09/16/23 04/16/24 Rx days #30 tabs hydrocodone 7.5 mg-acetaminophen 1 tab PO Q6H PRN pain 30 days #120 02/13/24 04/16/24 Rx 325 mg tablet tabs mupirocin 2 % topical ointment 1 applic topical TID #50 grams 02/15/24 04/16/24 Rx fexofenadine 180 mg tablet See Rx Instructions .Route 03/05/24 04/16/24 Rx (Allergy Relief (fexofenadine)) .COMPLEX #60 tabs lisinopril 40 mg tablet See Rx Instructions .Route 04/03/24 04/16/24 Rx .COMPLEX #60 tabs chlorthalidone 25 mg tablet 25 mg PO DAILY 90 days #90 tabs 04/11/24 04/16/24 Rx gabapentin 800 mg tablet See Rx Instructions .Route 04/11/24 04/16/24 Rx .COMPLEX #90 tabs hydrocodone 7.5 mg-acetaminophen 1 tab PO Q6H PRN pain 30 days #120 04/11/24 04/16/24 Rx 325 mg tablet tabs hydroxyzine HCl 10 mg tablet 10 mg PO TID PRN itching #90 tabs 04/11/24 04/16/24 Rx omega 3-dha 120 mg-epa 180 mg-fish 1 cap PO BID 30 days #60 caps 04/11/24 04/16/24 Rx oil 600 mg capsule (Extreme [place]-3) prednisone 10 mg tablet 10 mg PO DIRECTED #30 tabs 04/11/24 04/16/24 Rx New Prescriptions to Start Prescriptions: Allergies Allergy/AdvReac Type Severity Reaction Status Date / Time No Known Allergies Allergy Verified 04/11/24 13:10 Assessment and Plan *Assessment and plan (1) Lumbar radiculopathy: Status: Acute Category: Medical Code(s): M54.16 - Radiculopathy, lumbar region (2) Degenerative disc disease, lumbar: Status: Acute Category: Medical Code(s): M51.369 - Other intervertebral disc degeneration, lumbar region without mention of lumbar back pain or lower extremity pain Plan Patient is experiencing worsening pain in his low back with numbness and tingling into his lower extremities. Patient did have limited range of motion of his lumbar spine with a positive leg raise. I did discuss the risk and benefits of lumbar epidural and he would like to proceed forward with this plan of care. Patient has tried and failed conservative therapy including continued at home stretching exercise for longer than 12 weeks that was physician guided. Patient will be scheduled for an LESI L5-S1 under fluoroscopy. I will also proceed forward with ordering the spinal cord stimulator trial to treat his low back and leg symptoms. Patient has already had a psychological evaluation and was deemed an appropriate patient for this device. Patient has been instructed to contact the clinic with any concerns before the next appointment. Dr. Payne has reviewed this note and agrees with this plan of care. This note was dictated using voice recognition software and make contain errors or omissions. All injections are used with Lidocaine, Bupivacaine and Depo Medrol. Occasionally urine drug screen is needed to verify patient's compliance with our office pain contract. This is ordered based off specific treatments related to chronic pain with the potential to abuse certain medications.
== END 2024-04-16 23:59 | disposition home or self-care (01) ==
LOC: SC.PAIN 14:30
PROVIDERS: PCP Internal Medicine; Visit Provider Nurse Practitioner Family
DX: M51.16 Intervertebral disc disorders with radiculopathy, lumbar region (principal); F17.210 Nicotine dependence, cigarettes, uncomplicated; Z73.89 Other problems related to life management difficulty; Z79.899 Other long term (current) drug therapy
CPT/HCPCS: 99212; G0463

== ENCOUNTER 2024-05-01 12:20 | Day surgery (SDC) | payer MEDICARE, OTHER, SELFPAY ==
[2024-05-01 12:45] LABS: Basophils # 0.1 K/mm3 (0-0.2); Basophils % 0.8 % (0.1-2.0); Eosinophils # 0.1 K/mm3 (0.0-0.4); Eosinophils % 0.9 % (0.1-12.0); Hematocrit 53.2 % (42.0-52.0); Lymphocytes # 3.8 K/mm3 (0.7-4.5); Lymphocytes % 28.9 % (10-50); Mean Corpuscular HGB Conc 33.8 g/dL (31.8-35.4); Mean Corpuscular Hemoglobin 32.8 pg (27.0-31.2); Mean Corpuscular Volume 96.9 fl (80-94); Mean Platelet Volume 8.9 fl (7.4-10.4); Monocytes # 1.5 K/mm3 (0.1-1.0); Monocytes % 11.8 % (1.7-9.3); Neutrophils # 7.5 K/mm3 (1.8-7.8); Neutrophils % 57.1 % (37.0-80.0); Platelet Count 396 K/mm3 (142-424); Red Blood Count 5.49 M/mm3 (4.60-6.20); Red Cell Distribution Width 13.4 % (11.5-17.5); White Blood Count 13.1 K/mm3 (4.8-10.8)
[2024-05-01 13:05] VITALS: BP 119/82; PULSE 104; PULSE 91; RESP 18; O2SAT 95; O2SAT 97
[2024-05-01] MEDS: methylPREDNISolone ACETATE 80MG/ML VIAL 80 MG (13:09)
[2024-05-01 13:11] VITALS: BP 144/87; PULSE 89; RESP 16; TEMP 36.8; O2SAT 98; BMI 36.2
--- NOTE | 2024-05-01 13:21 | EXP.PAIN.PRO ---
Procedure Date: 05/01/24 Time: 13:10 Anesthesiologist:: Derek Chaves CRNA Complications:: None Pre-procedure Diagnosis:: Degenerative disc lumbar spine multilevels. Lumbar radiculopathy. Post-procedure Diagnosis:: Same Indications for Procedure:: Patient is a pleasant 53-year-old male comes our clinic today for lumbar epidural steroid injection at the L4-5 level. Patient describes low lumbar back pain as well as bilateral hip and leg radicular symptoms. He rates his pain 6/10. Procedure Details:: Procedure: Lumbar epidural steroid injection under fluoroscopy Informed consent was obtained and the risks and benefits of the procedure were explained to the patient. The patient was taken to the procedure room and noninvasive monitors placed, including noninvasive blood pressure cuff and pulse oximeter. The back was viewed using C-arm Fluoroscopy and prepped using Chloraprep as a cleansing solution and the L4-L5 interspace was palpated. Skin and subcutaneous tissues were anesthetized using lidocaine 1.5% and a 25-gauge needle. After this, an 18-gauge Touhy epidural needle was placed into the L4-L5 interspace and advanced using fluoroscopic guidance and loss of resistance to air until the epidural space was encountered. After confirmation of needle placement in the epidural space, with dye, a solution containing normal saline, 3 mL and Depo-Medrol 80 mg were incrementally injected into the lumbar epidural space. The patient tolerated the procedure well with no complications. The patient was observed in the Pain Clinic and then discharged home neurologically intact. Plan and Disposition:: Patient was discharged without incident.
[2024-05-01 13:30] VITALS: BP 116/76; PULSE 99; RESP 16; O2SAT 96
[2024-05-01 13:34] LABS: Alanine Aminotransferase 40 U/L (12-78); Albumin Level 4.7 g/dl (3.5-5.0); Albumin/Globulin Ratio 2.5 (1.1-1.8); Alkaline Phosphatase 85 U/L (38-126); Anion Gap 15.4 mEq/L (5-15); Aspartate Amino Transferase 32 U/L (17-59); Bilirubin,Total 0.5 mg/dl (0.2-1.3); Blood Urea Nitrogen 27 mg/dl (9-20); Calcium 9.9 mg/dl (8.4-10.2); Carbon Dioxide 24 mmol/L (22.0-30.0); Chloride 104 mmol/L (98-107); Creatinine Clearance Estimated 131 mL/min (50-200); Estimated Glomerular Filt Rate 70 ml/min (>60); GFR (African American) 85 ML/MIN (>60); Globulin 1.9 g/dL (1.3-3.2); Glucose 121 mg/dl (74-100); Potassium 5.4 mmoL/L (3.5-5.1); Sodium 138 mmol/L (136-145); Total Protein,Serum 6.6 g/dl (6.3-8.2)
== END 2024-05-01 13:30 | disposition home or self-care (01) ==
PROVIDERS: PCP Internal Medicine; Visit Provider Nurse Anesthetist, Certified Registered
DX: M51.16 Intervertebral disc disorders with radiculopathy, lumbar region (principal); I10 Essential (primary) hypertension; R79.89 Other specified abnormal findings of blood chemistry
CPT/HCPCS: 36415; 62323; 80053; 85025; J1010

== ENCOUNTER 2024-06-14 12:59 | Outpatient (POV) | payer MEDICARE, OTHER, MEDICAID, SELFPAY ==
--- NOTE | 2024-06-14 13:15 | EXP.PAIN.SOA ---
[facility] Disclaimer: The information contained in this section may have been updated after the patient was seen, as this information can be updated by other users. Medical History Acute otitis media with effusion of left ear Inverted papilloma of nasal cavity Nerve compression Carpal tunnel syndrome Bursitis Arthritis Bulging disc Sleep apnea History of COVID-19 Sinus headache History of back pain History of diverticulitis Perforated nasal septum Obstructive sleep apnea syndrome I will discuss this with him when he returns. This is contributing to his thrombocytosis. Inverted papilloma of lateral nasal wall Hypogonadism in male Chronic pain Pulmonary HTN Sinus problem Heart murmur Overweight (BMI 25.0-29.9) Hypertension Surgical History Hx of tonsillectomy History of surgery NOSE SX X3 History of hip surgery PINS AND SCREWS Hx of splenectomy Hx of hernia repair X3 History of cholecystectomy H/O arthroscopy Family History Other Family history of hyperlipidemia Family history of hypertension Social History Smoking Status: Current every day smoker tobacco type: cigarettes packs per day: 1 second hand exposure: Yes alcohol intake: current alcohol intake frequency: a few times a week substance use type: denies use current occupational status: other Travel in the last 8 weeks: None housing: house 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 current occupational exposures/hazards: No caffeine: Yes special bijan needs: No agree to transfusion: No do you feel safe at home: Yes victim of physical abuse: No victim of emotional abuse: No victim of sexual abuse: No would you like helpful sources: No Have you lived/traveled outside [place] in past 30 days?: No Contact w/someone who lives/traveled outside [place] past 30 days?: No Exposure to someone with infectious disease in past 14 days?: No Do you have a fever (greater than 100.4 F or 38 C)?: No Have you tested positive for COVID-19: No Exposed to someone with COVID-19 in past 14 days?: No Do you have a sore throat?: No Do you have a cough?: No Do you have shortness of breath?: No Do you have a headache?: No Do you have any weakness?: No Are you experiencing any nausea/vomitting?: No Do you have any diarrhea?: No Are you experiencing any unusual bleeding?: No Do you have any muscle aches/pain?: No Do you have any abdominal pain?: No Are you experiencing loss of taste or smell?: No PM Subjective & Objective Subjective Subjective:: Patient is a pleasant 53-year-old male who presents today for insurance denial of spinal cord stimulator trial. Today he rates his pain a 5 out of 10. He denies any new trauma or injury from our last appointment. Patient does state he still continues to have back pain that does go into his bilateral lower extremities. Patient has had multiple injections that have improved some of his pains however is frequently only temporary relief. Patient has continued conservative measures including oral medications, heat and ice, injection therapy, physical therapy and at home stretching exercise for longer than 12 weeks. Patient does make mention that he would still like to proceed forward with this option however he has had some insurance changes or expecting insurance changes coming up. He states he has been on disability for 2 years and that here in [place] that after that timeframe his insurance must be changed. He states he is not sure whether or not to what extent things will be covered or not. Patient does also make mention the rash that he was having on his shoulder he ended up going to see a specialist and that at that time there was not any rash present but he was given a topical. Patient states then there was an episode where he ended up doing a lot of work and was sweating excessively and tried the compounded cream that we order and did felt like it started to break out in a rash. He states that he did wash off really well and then applied the new topical and it did ease down the symptoms. Patient states he has never had any problems with the compounded cream in the past. His Jose has been reviewed and is appropriate. Review of Systems: General: No recent weight changes, no fever, no sleep disturbances Respiratory: No cough, no shortness of air, no recurring pulmonary infections Cardiovascular/peripheral vascular: No chest pain, no palpitations, no edema, no shortness of breath Gastrointestinal: No new onset incontinence, normal bowel movements reported Genitourinary: No new onset incontinence Musculoskeletal: Low back pain, leg pain Psychiatric: [Normal mood/affect] Neurological: [Denies weakness in extremities], [denies balance issues] Pain at rest (0-10 scale): 5 Objective Objective:: Physical Exam: General: Alert and oriented x3, no acute distress, pleasant and cooperative Lungs: Respirations even and unlabored, symmetrical chest expansion Eyes: PERRL Musculoskeletal: Flexion and extension of lumbar [spine] somewhat guarded secondary to pain, [antalgic gait noted] Neurological: Speech clear, no gross sensory deficit Has patient had previous pain injection?: No Conservative treatment options previously tried: Home exercise plan Length of treatment: Longer than 12 weeks Meds Home Medications and Allergies Home Medications ?Medication ?Instructions ?Recorded ?Confirmed ?Type sildenafil (pulm.hypertension) 20 20 mg PO DAILY PRN sexual activity 05/20/21 06/14/24 Rx mg tablet #40 tabs testosterone cypionate 200 mg/mL 200 mg IM Q6 Supplement 01/12/22 06/14/24 History intramuscular oil amitriptyline 25 mg tablet 25 mg PO DAILY 90 days #90 tabs 06/28/23 06/14/24 Rx nicotine 21 mg/24 hr daily 1 patch transdermal DAILY SMOKING 06/28/23 06/14/24 History transdermal patch CESSATION mupirocin 2 % topical ointment 1 applic topical TID #50 grams 02/15/24 06/14/24 Rx fexofenadine 180 mg tablet See Rx Instructions .Route 03/05/24 06/14/24 Rx (Allergy Relief (fexofenadine)) .COMPLEX #60 tabs chlorthalidone 25 mg tablet 25 mg PO DAILY 90 days #90 tabs 04/11/24 06/14/24 Rx omega 3-dha 120 mg-epa 180 mg-fish 1 cap PO BID 30 days #60 caps 04/11/24 06/14/24 Rx oil 600 mg capsule (Extreme [place]-3) prednisone 10 mg tablet 10 mg PO DIRECTED #30 tabs 04/11/24 06/14/24 Rx evolocumab 140 mg/mL subcutaneous 140 mg SQ Q2W #3 mL 05/23/24 06/14/24 Rx pen injector (Repatha Javadick) gabapentin 800 mg tablet See Rx Instructions .Route 05/23/24 06/14/24 Rx .COMPLEX #90 tabs hydrocodone 7.5 mg-acetaminophen 1 tab PO Q6H PRN pain 30 days #120 05/23/24 06/14/24 Rx 325 mg tablet tabs hydrocodone 7.5 mg-acetaminophen 1 tab PO Q6H PRN pain 30 days #120 05/23/24 06/14/24 Rx 325 mg tablet tabs hydrocortisone 2.5 % topical cream 1 applic topical TID PRN skin 05/23/24 06/14/24 Rx lesion #30 grams lisinopril 40 mg tablet See Rx Instructions .Route 05/30/24 06/14/24 Rx .COMPLEX #60 tabs New Prescriptions to Start Prescriptions: Allergies Allergy/AdvReac Type Severity Reaction Status Date / Time No Known Allergies Allergy Verified 06/14/24 14:28 Assessment and Plan *Assessment and plan (1) Lumbar radiculopathy: Status: Acute Category: Medical Code(s): M54.16 - Radiculopathy, lumbar region (2) Bilateral sacroiliitis: Status: Acute Category: Medical Code(s): M46.1 - Sacroiliitis, not elsewhere classified (3) Degenerative disc disease, lumbar: Status: Acute Category: Medical Code(s): M51.369 - Other intervertebral disc degeneration, lumbar region without mention of lumbar back pain or lower extremity pain (4) Chronic pain syndrome: Status: Acute Category: Medical Code(s): G89.4 - Chronic pain syndrome Plan I did review over with the patient regarding his denial. Patient does have moderate to severe nerve pain that has been going on for longer than 12 months. Patient has also seen multiple medical specialties including orthopedics, pain management and neurology all related to his chronic symptoms. Patient has had a psychological evaluation and was deemed an appropriate patient to receive the spinal cord stimulator. He was deemed that he did not have any concerning mental health issues nor does the patient have any untreated drug addiction problems. Patient has tried and failed conservative measures including oral medications including pain medications, heat and ice, topicals, injection therapy, physical therapy and continued exercise and stretching for longer than 12 weeks that was physician guided. We will submit for the spinal cord stimulator trial under fluoroscopy. Patient has been instructed to contact the clinic with any concerns before the next appointment. Dr. Payne has reviewed this note and agrees with this plan of care. This note was dictated using voice recognition software and make contain errors or omissions. All injections are used with Lidocaine, Bupivacaine and Depo Medrol. Occasionally urine drug screen is needed to verify patient's compliance with our office pain contract. This is ordered based off specific treatments related to chronic pain with the potential to abuse certain medications.
[2024-06-14 13:44] VITALS: BP 140/90; PULSE 104; RESP 18; O2SAT 95; BMI 36.9
== END 2024-06-14 23:59 | disposition home or self-care (01) ==
PROVIDERS: PCP Internal Medicine; Visit Provider Nurse Practitioner Family
DX: M46.1 Sacroiliitis, not elsewhere classified (principal); G89.4 Chronic pain syndrome; M51.16 Intervertebral disc disorders with radiculopathy, lumbar region; F17.210 Nicotine dependence, cigarettes, uncomplicated
CPT/HCPCS: 99212; G0463

== ENCOUNTER 2024-08-02 10:45 | Outpatient (CLI) | payer MEDICARE, MEDICAID, SELFPAY ==
--- OUTSIDE RECORDS SUMMARY | 2024-08-02 10:49 | XMS_ITS | Data Portability ---
Author Organization [facility] Medicine and [facility] [place] Address [address] [place] [address] Assessment No assessment recorded. Plan of Treatment Reminders Order Date Submit Date Provider Last Modified By Organization Details Last Modified Time Details Appointments OV EST 15 2024 01:00P Carolina Patel Jr, MD Not available Not available Not available Lab testoster one, free + total, serum [address] (Laboratory), [address] [place], [address], 03/14/2024 07:24:45 CBC [address] (Laboratory), [place], [address], 03/08/2024 13:07:47 PSA, serum or plasma [address] (Laboratory), [address] [place], [address], 03/08/2024 13:07:47 estradiol , serum 2023 024 [facility] (Laboratory), [address] [place], [address], 03/13/2024 13:09:49 testoster one, free + total, serum [address] (Laboratory), [address] [place], [address], 09/14/2023 09:49:08 CBC [address] (Laboratory), [address] [place] [address] [place], [address], 09/14/2023 09:49:09 testoster one, free + total, serum [address] (Lab Registration) , [address] [place] [address] [place], [address], 01/17/2023 07:37:50 CBC [address] (Laboratory), [address] [place] [address] [place], [address], 01/17/2023 07:37:50 PSA, serum or plasma [address] (Laboratory), [address] [place] [address] [place], [address], 01/06/2023 10:51:26 testoster one, free + total, serum 2022 023 [email or web address] Not available 07/28/2022 08:03:08 CBC 2022 023 ESHA Not available 07/07/2022 16:35:45 urinalysi s, dipstick [address] [facility], [address] [facility], [place], [address], 07/07/2022 12:39:47 Referral None recorded. Procedures None recorded. Surgeries None recorded. Imaging None recorded. Medication Orders sildenafi l (pulmonar y hypertens ion) 20 mg tablet 2023 024 [facility], [address] [facility], [address], [place], [address], 03/07/2024 16:10:33 testoster one cypionate 200 mg/mL intramusc ular oil 2023 024 [facility], [address] [place] [address], [facility], [place], [address], 03/07/2024 16:10:37 testoster one cypionate 200 mg/mL intramusc ular oil [address], [address] [place] [address], [place], [address], 09/07/2023 14:17:51 testoster one cypionate 200 mg/mL intramusc ular oil 2022 023 [facility], [address] [place] [address], [place], [address], 01/05/2023 12:49:21 sildenafi l (pulmonar y hypertens ion) 20 mg tablet 2022 023 [facility], [address] [place] [address], [place], [address], 07/07/2022 15:19:02 testoster one cypionate 200 mg/mL intramusc ular oil [address], [address] [place] [address], [place], [address], 07/13/2022 11:25:18 Patient TargetsNo targets recorded. Patient InstructionsNo instructions recorded. Reason for Referral None Reported. Results Created Date Observation Date Name Description Value Unit Range Abnormal Flag Note LastModifiedBy Organization Detail LastModifiedTime 07/08/1907/07/2022 CBC AUTO NO DIFF (HEMO GRAM) WBC 11.8 10 4.5-11 .5 high Not Available [facility] (Lab Registration) [address] [place], [address], 07/07/2022 16:35:45 07/08/19 23 07/07/2022 CBC AUTO NO DIFF (HEMO GRAM) RBC 5.26 10 4.25-5 .57 Not Available [facility] (Lab Registration) [address] [place], [address], 07/07/2022 16:35:45 07/08/19 23 07/07/2022 CBC AUTO NO DIFF (HEMO GRAM) HGB 17.0 g/dL 13.5-1 7.2 Not Available [facility] (Lab Registration) [address] [place], [address], 07/07/2022 16:35:45 07/08/19 23 07/07/2022 CBC AUTO NO DIFF (HEMO GRAM) HCT 50.2 % 42.0-5 2.0 Not Available [facility] (Lab Registration) [address] [place], [address], 07/07/2022 16:35:45 07/08/19 23 07/07/2022 CBC AUTO NO DIFF (HEMO GRAM) MCV 95.4 fL 80-95 high Not Available [facility] (Lab Registration) [address] [place], [address], 07/07/2022 16:35:45 07/08/19 23 07/07/2022 CBC AUTO NO DIFF (HEMO GRAM) MCH 32.3 pg 27.0-3 4.0 Not Available [facility] (Lab Registration) [address] [place], [address], 07/07/2022 16:35:45 07/08/19 23 07/07/2022 CBC AUTO NO DIFF (HEMO GRAM) MCHC 33.9 g/dL 32.0-3 6.0 Not Available [facility] (Lab Registration) [address] [place], [address], 07/07/2022 16:35:45 07/08/19 23 07/07/2022 CBC AUTO NO DIFF (HEMO GRAM) platelet count 450 10 150-45 0 Not Available [facility] (Lab Registration) [address] [place], [address], 07/07/2022 16:35:45 07/08/19 23 07/07/2022 CBC AUTO NO DIFF (HEMO GRAM) RDW 14.3 % 12.3-1 5.1 Not Available [facility] (Lab Registration) [address] , [place], [address], 07/07/2022 16:35:45 07/08/19 23 07/07/2022 CBC AUTO NO DIFF (HEMO GRAM) MPV 10.0 fL 7.4-10 .4 Not Available [facility] (Lab Registration) [address] [place], [address], 07/07/2022 16:35:45 07/08/19 23 07/07/2022 CBC AUTO NO DIFF (HEMO GRAM) note Unles s other rios noted testi ng perfo rmed at: [facility] [address] [place] [address] [phone] Tanner weston MD CLIA: [id number] Not Available [facility] (Lab Registration) [address] , [place], [address], 07/07/2022 16:35:45 07/08/19 23 07/07/2022 TESTO STERO NE TOTAL note Unles s other rios noted testi ng perfo rmed at: [facility] [address] [place] [address] [phone] Tanner weston MD CLIA: [id number] Not Available [facility] (Lab Registration) [address] [place], [address], 07/11/2022 18:10:00 07/08/19 23 07/11/2022 TESTO STERO NE TOTAL testosterone , serum 205 NG/dL 264-91 6 low Adult male refer ence inter matteo is based on a popul ation of healt hy nonob bette males (BMI <30) betwe en 19 and 39 years old. Tori stanley et.al . JCEM 2017, 102;1 161-1 173. PMID: 15137 103. Perfo rmed at: - [facility] n [address] [facility], [place] [address] Lab Direc tor: Grady andujar PhD, Phone : [phone] Not Available [facility] (Lab Registration) [address] [place], [address], 07/11/2022 18:10:00 07/08/19 23 07/07/2022 urina lysis , dipst ick Leukocytes (reference range) negati ve Not Available [address], [address], 07/07/2022 12:32:22 07/08/19 23 07/07/2022 urina lysis , dipst ick Nitrite (reference range:) negati ve Not Available [address], [address], 07/07/2022 12:32:22 07/08/19 23 07/07/2022 urina lysis , dipst ick Urobilinogen (reference range) 0.2 Not Available [address], [address], 07/07/2022 12:32:22 07/08/19 23 07/07/2022 urina lysis , dipst ick Protein (reference range) negati ve Not Available [address], [address], 07/07/2022 12:32:22 07/08/19 23 07/07/2022 urina lysis , dipst ick pH (reference range 5-8.5) 6.5 Not Available [address], [address], 07/07/2022 12:32:22 07/08/19 23 07/07/2022 urina lysis , dipst ick Blood (reference range:) negati ve Not Available [address], [address], 07/07/2022 12:32:22 07/08/19 23 07/07/2022 urina lysis , dipst ick Specific Nice (reference range) 1.010 Not Available [address], [address], 07/07/2022 12:32:22 07/08/19 23 07/07/2022 urina lysis , dipst ick Ketone (reference range) negati ve Not Available [address], [address], 07/07/2022 12:32:22 07/08/19 23 07/07/2022 urina lysis , dipst ick Bilirubin (reference range) negati ve Not Available [address], [address], 07/07/2022 12:32:22 07/08/19 23 07/07/2022 urina lysis , dipst ick Glucose (reference range) negati ve Not Available [address], [address], 07/07/2022 12:32:22 01/06/20 23 01/05/2023 CBC AUTO W DIFF WBC 10.7 10 4.5-11 .5 Not Available [facility] (Lab Registration) [address] , [place], [address], 01/05/2023 16:57:01 01/06/20 23 01/05/2023 CBC AUTO W DIFF RBC 4.95 10 4.25-5 .57 Not Available [facility] (Lab Registration) [address] , [place], [address], 01/05/2023 16:57:01 01/06/2001/05/2023 CBC AUTO W DIFF HGB 16.3 g/dL 13.5-1 7.2 Not Available [facility] (Lab Registration) [address], [place], [address], 01/05/2023 16:57:01 01/06/2001/05/2023 CBC AUTO W DIFF HCT 48.2 % 42.0-5 2.0 Not Available [facility] (Lab Registration) [address] [place], [address], 01/05/2023 16:57:01 01/06/2001/05/2023 CBC AUTO W DIFF MCV 97.4 fL 80-95 high Not Available [facility] (Lab Registration) [address] [place], [address], 01/05/2023 16:57:01 01/06/2001/05/2023 CBC AUTO W DIFF MCH 32.9 pg 27.0-3 4.0 Not Available [facility] (Lab Registration) [address] [place], [address], 01/05/2023 16:57:01 01/06/2001/05/2023 CBC AUTO W DIFF MCHC 33.8 g/dL 32.0-3 6.0 Not Available [facility] (Lab Registration) [address] [place], [address], 01/05/2023 16:57:01 01/06/20 23 01/05/2023 CBC AUTO W DIFF platelet count 419 10 150-45 0 Not Available [facility] (Lab Registration) [address] [place], [address], 01/05/2023 16:57:01 01/06/20 23 01/05/2023 CBC AUTO W DIFF RDW 15.6 % 12.3-1 5.1 high Not Available [facility] (Lab Registration) [address] [place], [address], 01/05/2023 16:57:01 01/06/2001/05/2023 CBC AUTO W DIFF MPV 9.8 fL 7.4-10 .4 Not Available [facility] (Lab Registration) [address] [place], [address], 01/05/2023 16:57:01 01/06/20 23 01/05/2023 CBC AUTO W DIFF granulocyte% 50.0 % 40-75 Not Available [facility] (Lab Registration) [address] [place], [address], 01/05/2023 16:57:01 01/06/2001/05/2023 CBC AUTO W DIFF lymphocyte% 29.1 % 15-57 Not Available [facility] (Lab Registration) [address] [place], [address], 01/05/2023 16:57:01 01/06/2001/05/2023 CBC AUTO W DIFF monocyte% 16.7 % 4.0-12 .0 high Not Available [facility] (Lab Registration) [address] [place], [address], 01/05/2023 16:57:01 01/06/2001/05/2023 CBC AUTO W DIFF eosinophil% 3.2 % 0.0-4. 0 Not Available [facility] (Lab Registration) [address] [place], [address], 01/05/2023 16:57:01 01/06/2001/05/2023 CBC AUTO W DIFF basophil% 0.6 % 0.0-1. 0 Not Available [facility] (Lab Registration) [address] [place], [address], 01/05/2023 16:57:01 01/06/2001/05/2023 CBC AUTO W DIFF immature granulocytes % 0.4 % 0.0-0. 8 Not Available [facility] (Lab Registration) [address] [place], [address], 01/05/2023 16:57:01 01/06/20 23 01/05/2023 CBC AUTO W DIFF granulocyte# 5.35 10 Not Available [facility] (Lab Registration) [address] [place], [address], 01/05/2023 16:57:01 01/06/20 23 01/05/2023 CBC AUTO W DIFF lymphocyte# 3.10 10 Not Available [facility] (Lab Registration) [address] [place], [address], 01/05/2023 16:57:01 01/06/20 23 01/05/2023 CBC AUTO W DIFF monocyte# 1.78 10 Not Available [facility] (Lab Registration) [address] [place], [address], 01/05/2023 16:57:01 01/06/2001/05/2023 CBC AUTO W DIFF eosinophil# 0.34 10 Not Available [facility] (Lab Registration) [address] [place], [address], 01/05/2023 16:57:01 01/06/20 23 01/05/2023 CBC AUTO W DIFF basophil# 0.06 10 Not Available [facility] (Lab Registration) [address] [place], [address], 01/05/2023 16:57:01 01/06/20 23 01/05/2023 CBC AUTO W DIFF immature granulocytes # 0.04 10 Not Available [facility] (Lab Registration) [address] [place], [address], 01/05/2023 16:57:01 01/06/2001/05/2023 CBC AUTO W DIFF manual differential NO Not Available [facility] (Lab Registration) [address] [place], [address], 01/05/2023 16:57:01 01/06/20 23 01/05/2023 CBC AUTO W DIFF note Unles s other rios noted testi ng perfo rmed at: [facility] [address] [place] [phone] Tanner weston MD CLIA: [id number] Not Available [facility] (Lab Registration) [address] , [place], [address], 01/05/2023 16:57:01 01/06/20 23 01/05/2023 PROST ATE SPECI FIC AG (PSA) prostate specific Ag (PSA) 3.48 NG/mL 0.0-4. 0 Not Available [facility] (Lab Registration) [address] , [place], [address], 01/05/2023 17:10:09 01/06/2001/05/2023 PROST ATE SPECI FIC AG (PSA) note Unles s other rios noted testi ng perfo rmed at: [facility] [address] [place] [address] [phone] Tanner weston MD CLIA: [id number] Not Available [facility] (Lab Registration) [address], [place], [address], 01/05/2023 17:10:09 01/06/2001/05/2023 TESTO STERO NE TOTAL note Unles s other rios noted testi ng perfo rmed at: [facility] [address] [place] [address] [phone] Tanner weston MD CLIA: [id number] Not Available [facility] (Lab Registration) [address], [place], [address], 01/07/2023 09:14:17 01/06/2001/07/2023 TESTO STERO NE TOTAL testosterone , serum 676 NG/dL 264-91 6 Adult male refer ence inter matteo is based on a popul ation of healt hy nonob bette males (BMI <30) betwe en 19 and 39 years old. adriel Valdivia.lazara . JCEM 2017, 102;1 161-1 173. PMID: 57830 103. Perfo rmed at: CB - [facility] [address] [facility], [place] [address] Lab Direc tor: Grady andujar PhD, Phone : [phone] Not Available [facility] (Lab Registration) [address] [place], [place], [address], 01/07/2023 09:14:17 01/06/20 23 01/05/2023 TESTO STERO NE FREE note Unles s other rios noted testi ng perfo rmed at: [facility] [address] [place] [address] [phone] Tanner weston MD CLIA: [id number] Not Available [facility] (Lab Registration) [address], [place], [address], 01/14/2023 03:38:03 01/06/20 23 01/14/2023 TESTO STERO NE FREE free testosterone (direct) 17.1 pg/mL 7.2-24 .0 Perfo rmed at: - [facility] [address] [place] [address] Lab Direc tor: Eva kumari MD, Phone : [phone] SENT TO REFER ENCE LAB Not Available [facility] (Lab Registration) [address] [place], [address], 01/14/2023 03:38:03 09/07/19 24 09/07/2023 CBC AUTO W DIFF WBC 22.6 10 4.5-11 .5 high Not Available [facility] (Lab Registration) [address] [place], [address], 09/07/2023 16:56:15 09/07/19 24 09/07/2023 CBC AUTO W DIFF RBC 5.10 10 4.25-5 .57 Not Available [facility] (Lab Registration) [address] [place], [address], 09/07/2023 16:56:15 09/07/19 24 09/07/2023 CBC AUTO W DIFF HGB 16.6 g/dL 13.5-1 7.2 Not Available [facility] (Lab Registration) [address] [place], [address], 09/07/2023 16:56:15 09/07/19 24 09/07/2023 CBC AUTO W DIFF HCT 49.3 % 42.0-5 2.0 Not Available [facility] (Lab Registration) [address] [place], [address], 09/07/2023 16:56:15 09/07/19 24 09/07/2023 CBC AUTO W DIFF MCV 96.7 fL 80-95 high Not Available [facility] (Lab Registration) [address] [place], [address], 09/07/2023 16:56:15 09/07/19 24 09/07/2023 CBC AUTO W DIFF MCH 32.5 pg 27.0-3 4.0 Not Available [facility] (Lab Registration) [address] [place], [address], 09/07/2023 16:56:15 09/07/19 24 09/07/2023 CBC AUTO W DIFF MCHC 33.7 g/dL 32.0-3 6.0 Not Available [facility] (Lab Registration) [address] [place], [address], 09/07/2023 16:56:15 09/07/19 24 09/07/2023 CBC AUTO W DIFF platelet count 455 10 150-45 0 high Not Available [facility] (Lab Registration) [address] [place], [address], 09/07/2023 16:56:15 09/07/19 24 09/07/2023 CBC AUTO W DIFF RDW 13.6 % 12.3-1 5.1 Not Available [facility] (Lab Registration) [address] [place], [address], 09/07/2023 16:56:15 09/07/19 24 09/07/2023 CBC AUTO W DIFF MPV 9.0 fL 7.4-10 .4 Not Available [facility] (Lab Registration) [address] [place], [address], 09/07/2023 16:56:15 09/07/19 24 09/07/2023 CBC AUTO W DIFF granulocyte% 84.0 % 40-75 high Not Available [facility] (Lab Registration) [address] [place], [address], 09/07/2023 16:56:15 09/07/19 24 09/07/2023 CBC AUTO W DIFF lymphocyte% 7.5 % 15-57 low Not Available [facility] (Lab Registration) [address] [place], [address], 09/07/2023 16:56:15 09/07/19 24 09/07/2023 CBC AUTO W DIFF monocyte% 7.9 % 4.0-12 .0 Not Available [facility] (Lab Registration) [address] [place], [address], 09/07/2023 16:56:15 09/07/19 24 09/07/2023 CBC AUTO W DIFF eosinophil% 0.1 % 0.0-4. 0 Not Available [facility] (Lab Registration) [address] [place], [address], 09/07/2023 16:56:15 09/07/19 24 09/07/2023 CBC AUTO W DIFF basophil% 0.1 % 0.0-1. 0 Not Available [facility] (Lab Registration) [address] [place], [address], 09/07/2023 16:56:15 09/07/19 24 09/07/2023 CBC AUTO W DIFF immature granulocytes % 0.4 % 0.0-0. 8 Not Available [facility] (Lab Registration) [address] [place], [address], 09/07/2023 16:56:15 09/07/19 24 09/07/2023 CBC AUTO W DIFF granulocyte# 18.94 10 Not Available [facility] (Lab Registration) [address] [place], [address], 09/07/2023 16:56:15 09/07/19 24 09/07/2023 CBC AUTO W DIFF lymphocyte# 1.69 10 Not Available [facility] (Lab Registration) [address] [place], [address], 09/07/2023 16:56:15 09/07/19 24 09/07/2023 CBC AUTO W DIFF monocyte# 1.79 10 Not Available [facility] (Lab Registration) [address] [place], [address], 09/07/2023 16:56:15 09/07/19 24 09/07/2023 CBC AUTO W DIFF eosinophil# 0.03 10 Not Available [facility] (Lab Registration) [address] [place], [address], 09/07/2023 16:56:15 09/07/19 24 09/07/2023 CBC AUTO W DIFF basophil# 0.03 10 Not Available [facility] (Lab Registration) [address] [place], [address], 09/07/2023 16:56:15 09/07/19 24 09/07/2023 CBC AUTO W DIFF immature granulocytes # 0.09 10 Not Available [facility] (Lab Registration) [address] [place], [address], 09/07/2023 16:56:15 09/07/19 24 09/07/2023 CBC AUTO W DIFF manual differential NO Not Available [facility] (Lab Registration) [address] [place], [address], 09/07/2023 16:56:15 09/07/19 24 09/07/2023 CBC AUTO W DIFF note Unles s other rios noted testi ng perfo rmed at: [facility] [address] [place] [address] [phone] Tanner weston MD CLIA: [id number] Not Available [facility] (Lab Registration) [address] [place], [address], 09/07/2023 16:56:15 09/07/19 24 09/07/2023 TESTO STERO NE FREE note Unles s other rios noted testi ng perfo rmed at: [facility] [address] [place] [address] [phone] Tanner weston MD CLIA: [id number] Not Available [facility] (Lab Registration) [address] [place], [address], 09/13/2023 20:11:13 09/07/19 24 09/13/2023 TESTO STERO NE FREE free testosterone (direct) 2.7 pg/mL 7.2-24 .0 low Perfo rmed at: BN - [facility] [place] [address] [facility] , [place] [address] Lab Direc tor: Eva kumari MD, Phone : [phone] SENT TO REFER ENCE LAB Not Available [facility] (Lab Registration) [address] [place], [address], 09/13/2023 20:11:13 03/07/20 24 03/07/2024 CBC AUTO NO DIFF (HEMO GRAM) WBC 12.5 10 4.5-11 .5 high Not Available [facility] (Lab Registration) [address] [place], [address], 03/07/2024 17:17:17 03/07/20 24 03/07/2024 CBC AUTO NO DIFF (HEMO GRAM) RBC 5.45 10 4.25-5 .57 Not Available [facility] (Lab Registration) [address] [place], [address], 03/07/2024 17:17:17 03/07/20 24 03/07/2024 CBC AUTO NO DIFF (HEMO GRAM) HGB 17.8 g/dL 13.5-1 7.2 high Not Available [facility] (Lab Registration) [address] [place], [address], 03/07/2024 17:17:17 03/07/20 24 03/07/2024 CBC AUTO NO DIFF (HEMO GRAM) HCT 53.4 % 42.0-5 2.0 high Not Available [facility] (Lab Registration) [address] [place], [address], 03/07/2024 17:17:17 03/07/20 24 03/07/2024 CBC AUTO NO DIFF (HEMO GRAM) MCV 98.0 fL 80-95 high Not Available [facility] (Lab Registration) [address] [place], [address], 03/07/2024 17:17:17 03/07/20 24 03/07/2024 CBC AUTO NO DIFF (HEMO GRAM) MCH 32.7 pg 27.0-3 4.0 Not Available [facility] (Lab Registration) [address] [place], [address], 03/07/2024 17:17:17 03/07/20 24 03/07/2024 CBC AUTO NO DIFF (HEMO GRAM) MCHC 33.3 g/dL 32.0-3 6.0 Not Available [facility] (Lab Registration) [address] [place], [address], 03/07/2024 17:17:17 03/07/20 24 03/07/2024 CBC AUTO NO DIFF (HEMO GRAM) platelet count 363 10 150-45 0 Not Available [facility] (Lab Registration) [address] [place], [address], 03/07/2024 17:17:17 03/07/20 24 03/07/2024 CBC AUTO NO DIFF (HEMO GRAM) RDW 14.2 % 12.3-1 5.1 Not Available [facility] (Lab Registration) [address] [place], [address], 03/07/2024 17:17:17 03/07/20 24 03/07/2024 CBC AUTO NO DIFF (HEMO GRAM) MPV 10.2 fL 7.4-10 .4 Not Available [facility] (Lab Registration) [address] [place], [address], 03/07/2024 17:17:17 03/07/20 24 03/07/2024 CBC AUTO NO DIFF (HEMO GRAM) note Unles s other rios noted testi ng perfo rmed at: [facility] [address] [place] [address] [phone] Tanner weston MD CLIA: [id number] Not Available [facility] (Lab Registration) [address] [place], [address], 03/07/2024 17:17:17 03/07/20 24 03/07/2024 PROST ATE SPECI FIC AG (PSA) prostate specific Ag (PSA) 2.32 NG/mL 0.0-4. 0 Not Available [facility] (Lab Registration) [address] [place], [address], 03/07/2024 17:46:10 03/07/20 24 03/07/2024 PROST ATE SPECI FIC AG (PSA) note Unles s other rios noted testi ng perfo rmed at: [facility] [address] [place] [address] [phone] Tanner weston MD CLIA: [id number] Not Available [facility] (Lab Registration) [address] [place], [address], 03/07/2024 17:46:10 03/07/20 24 03/07/2024 TESTO STERO NE TOTAL note Unles s other rios noted testi ng perfo rmed at: [facility] [address] [place] [address] [phone] Tanner weston MD CLIA: [id number] Not Available [facility] (Lab Registration) [address], [place], [address], 03/08/2024 11:15:22 03/07/20 24 03/08/2024 TESTO STERO NE TOTAL testosterone , serum 134 NG/dL 264-91 6 low Adult male refer ence inter matteo is based on a popul ation of healt hy nonob bette males (BMI <30) betwe en 19 and 39 years old. Tori stanley, et.al . JCEM 2017, 102;1 161-1 173. PMID: 86402 103. Perfo rmed at: - [facility] [address] [id number] Lab Direc tor: Grady andujar PhD, Phone : [phone] Not Available [facility] (Lab Registration) [address], [place], [address], 03/08/2024 11:15:22 03/07/20 24 03/07/2024 TESTO STERO NE FREE note Unles s other rios noted testi ng perfo rmed at: [facility] [address] [place] [address] [phone] Tanner weston MD CLIA: [id number] Not Available [facility] (Lab Registration) [address], [address], 03/11/2024 06:43:43 03/07/20 24 03/11/2024 TESTO STERO NE FREE free testosterone (direct) 3.6 pg/mL 7.2-24 .0 low Perfo rmed at: [facility] [place] [address] [facility] , [place] [address] Lab Direc tor: Eva kumari MD, Phone : [phone] SENT TO REFER ENCE LAB Not Available [facility] (Lab Registration) 9 Dontrell Nowak, [place], [address], 03/11/2024 06:43:43 Result Notes None recorded. Problems Name Problem SNOMED Code Status Onset Date Resolution Date Notes Provider Name and Address Organization Details Recorded Time Hypertensive disorder 80676959 Active 2022 Nadia Gaytan null, [place] - [facility] - [place] & [place] 3 10:24:28 Environmental allergy 141576415 Active 2022 Nadia Gaytan null, [place] - [facility] - [place] & [place] 3 10:24:36 Sleep apnea 80651314 Active 2022 Nadia Gaytan null, [place] - [facility] - [place] & [place] 3 10:24:47 Arthritis 4529545 Active 2022 Nadia Aguilarant null, [place] - [facility] - [place] & [place] 3 10:24:56 Problem Notes None recorded. Procedures Surgical History Date Name Laterality Status Provider Name and Address Organization Details Recorded Time nose excision completed Nadia ROBERTO - [facility] & [place] 07/07/2022 10:25:30 Hernia Repair completed Nadiamarj ROBERTO - [facility] & [place] 07/07/2022 10:25:42 tonsilectomy/a denoids completed Nadiamarj ROBERTO - [facility] & [place] 07/07/2022 10:26:06 Imaging Results None recorded. Procedure Notes None recorded. Medical Equipment None Reported. Allergies No known drug allergies Medications Name Sig Start Date Stop Date Status Note LastModified by Organization Details LastModified Time mixing jar, stir stick and spatula 1OZ OINTMENT JAR, MIXING STICK, SPATULA active Not Available Not Available No t Available clindamycin /mupirocin/ itraconazol e 150/20/50mg topical capsule [74889] MIX THE CONTENTS OF 1 CAPSULE WITH DILUENT. APPLY TO AFFECTED AREAS. PERFORM TWICE DAILY. FOLLOW WITH OINTMENT. active Not Available Not Available No t Available urea/fluoci nonide 20/ 0.05% cream [02378] APPLY UP TO 4 GRAMS TO AFFECTED AREAS TWICE DAILY DIRECTED active Not Available Not Available No t Available amantadine HCl 100 mg tablet active Not Available Not Available Not Available prednisone 10 mg tablet active Not Available Not Available Not Available atorvastati n 20 mg tablet active Not Available Not Available Not Available trazodone 50 mg tablet active Not Available Not Available Not Available hydrocodone 5 mg-acetamin ophen 325 mg tablet Take 1 tablet every 6 hours by oral route. active Not Available Not Available No t Available urea 40 % topical cream active Not Available Not Available Not Available ondansetron HCl 4 mg tablet active Not Available Not Available Not Available metronidazo le 500 mg tablet active Not Available Not Available Not Available chlorthalid one 25 mg tablet active Not Available Not Available Not Available amlodipine 5 mg tablet active Not Available Not Available Not Available triamcinolo ne acetonide 0.1 % topical cream active Not Available Not Available Not Available prednisone 10 mg tablets in a dose pack active Not Available Not Available Not Available famotidine 20 mg tablet active Not Available Not Available Not Available amitriptyli ne 25 mg tablet active Not Available Not Available Not Available gabapentin 800 mg tablet active Not Available Not Available Not Available nicotine (polacrilex ) 4 mg gum active Not Available Not Available N ot Available ciprofloxac in 0.3 % eye drops 01/05 completed Not Available Not Available Not Available hydrocodone 7.5 mg-acetamin ophen 325 mg tablet active Not Available Not Available No t Available cephalexin 500 mg capsule active Not Available Not Available Not Available nicotine 21 mg/24 hr daily transdermal patch active Not Available Not Available Not Available hydrochloro thiazide 25 mg tablet active Not Available Not Available No t Available mupirocin 2 % topical ointment active Not Available Not Available Not Available testosteron e cypionate 200 mg/mL intramuscul ar oil Inject 1 mL every week by intramusc ular route for 28 days. active Not Available Not Available No t Available prednisone 5 mg tablets in a dose pack active Not Available Not Available Not Available benzoyl peroxide 5 % topical cleanser active Not Available Not Available Not Available levofloxaci n 500 mg tablet active Not Available Not Available Not Available methylpredn isolone 4 mg tablets in a dose pack active Not Available Not Available Not Available hydroxyzine HCl 10 mg tablet active Not Available Not Available Not Available lisinopril 40 mg tablet TAKE 1 TABLET BY MOUTH DAILY active Not Available Not Available No t Available gentamicin 0.1 % topical ointment APPLY UP TO 4 GRAMS TO AFFECTED AREAS TWICE DAILY DIRECTED active Not Available Not Available No t Available oxycodone 5 mg tablet active Not Available Not Available No t Available Saline Nasal 0.65 % spray aerosol active Not Available Not Available Not Available rosuvastati n 10 mg tablet active Not Available Not Available Not Available sildenafil (pulmonary hypertensio n) 20 mg tablet Take 3 tablets as needed by oral route. 2023 active Not Available Not Available Not Avai lable prednisone active Not Available Not Av ailable Not Available lisinopril active Not Available Not Av ailable Not Available trazodone active Not Available Not Abby ilable Not Available gabapentin active Not Available Not Av ailable Not Available omega 3-dha-epa-f nia oil 1,000 mg (120 mg-180 mg) capsule active Not Available Not Available Not Available Allergy Relief (fexofenadi ne) 180 mg tablet active Not Available Not Available Not Available Marilou Allergy active Not Available Not Available Not Available Vitals Date Recorded Body height Body mass index (BMI) Body weight Provider Name and Address Organization Details Last Updated DateTime 07/07/2022 177.8 cm 32.4 kg/m2 163673.88 g Nadia Gaytan [place] - [facility] & [place] 07/07/2022 10:19:29 Date Recorded Body height Body weight Body temperature Provider Name and Address Organization Details Last Updated DateTime 01/05/2023 177.8 cm 587106.88 g 98 [degF] Aster Bender [place] - [facility] & [place] 01/05/2023 10:43:26 Date Recorded Body height Body mass index (BMI) Body weight Provider Name and Address Organization Details Last Updated DateTime 09/07/2023 177.8 cm 32.4 kg/m2 741481.88 g Nadia Aguilarant [place] - [place] [facility] & [place] 09/07/2023 13:45:43 Date Recorded Body height Body mass index (BMI) Body weight Body temperature Provider Name and Address Organization Details Last Updated DateTime 03/07/2024 177.8 cm 32.4 kg/m2 353544.88 g 98.1 [degF] Ruth Lipscomb [facility] - [place] & [place] 03/07/2024 13:54:32 Social History None recorded. Functional Status None recorded. Mental Status None recorded. Family History Relationship Description Onset Age of this Age Resolved Age Notes LastModified by Organization Details LastModified Time Father No current problems or disability [email or web address] Not available 06/26 10:25:06 Mother No current problems or disability [email or web address] Not available 06/26 10:25:06 Medical History No medical history recorded. Past Encounters Encounter ID Performer Location Encounter Start Date Encounter Closed Date Diagnosis/Indication Diagnosis SNOMED-CT Code Diagnosis ICD10 Code Diagnosis Note [id number] Yusuf Patel Jr, MD [facility] [address] [address] 07/07/2022 09:57:06 07/07/2022 11:05:58 Testosterone level below reference range 355501650 R89.1 Patient with history of testostero ne deficiency . He presents for transfer of care regarding his urologic problems today. He has been on testostero ne cypionate 4 mg with good results. We will refill for him today. We will check surveillan ce labs. Erectile dysfunction 860 970944 F52.21 patient with history of erectile dysfunctio n. He continues to take 60-100 mg of sildenafil p.r.n. with good results. [id number] Yusuf Patel Jr, MD [facility] [address] [address] 01/05/2023 09:45:39 01/05/2023 11:34:21 Testosterone level below reference range 528133869 R89.1 Patient with history of testostero ne deficiency . He has been on testostero ne cypionate 400 mg q 3 wks with good results. We will refill for him today. We will check surveillan ce labs. Erectile dysfunction 860 663994 F52.21 patient with history of erectile dysfunctio n. He continues to take 60-100 mg of sildenafil p.r.n. with good results. Screening for malignant neoplasm of prostate 503044204 Z12.5 PSA to be drawn today. 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 Continue testostero ne cypionate 400 mg every 3 weeks. Check surveillan ce labs today. Erectile dysfunction 860 375622 F52.21 patient with history of erectile dysfunctio n. He continues to take 60-100 mg of sildenafil p.r.n. with good results Although has not been sexually active since his surgery. Screening for malignant neoplasm of prostate 224613181 Z12.5 P PSA was 3.4 in December. We will recheck at his next visit. [id number] Yusuf Patel Jr, MD [facility] [address] [address] 03/07/2024 13:34:05 03/07/2024 14:10:59 Testosterone level below reference range 328678472 R89.1 Patient with history of testostero ne deficiency . He has been on testostero ne cypionate 400 mg q 3 wks with good results. We will refill for him today. We will check surveillan ce labs. He inquires as to whether we can change his dose to keep from having recurrent symptoms towards the end of the cycle. We did discuss taking 200 mg every 1-1/2 weeks to prevent the recurrence of symptoms at the end of a 3 week cycle. his last injection was 10 days ago so he is at midcycle. Screening for malignant neoplasm of prostate 955219766 Z12.5 P PSA was 3.4 in December 2022. We will repeat today. Erectile dysfunction 860 389546 F52.21 patient with history of erectile dysfunctio n. He continues to take 60-100 mg of sildenafil p.r.n. with good results . We will refill today. 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 Health Concerns Section Related Observation LastModified by Organization Detai ls LastModified Time None Recorded Concern Status LastModified by Organization Details LastModified Time None Recorded Advance Directives Directive None Recorded Payers Insurance Date Sequence Insurance Name Policy Number Policy Knox Covered Member ID Knox Member ID Guarantor Name 03/04/2024 1 [employer] [facility] (MEDICAID HMO) Yusuf Cooper [id number] Yusuf Cooper Notes Date Note Type Note Provider Name and Address Organization Details Recorded Time 07/07/2022 text/html patient is a 51-year-old white male with a history of testosterone deficiency. He also has erectile dysfunction. He was previously seen at [facility]. He comes to the [facility] today for transfer of care. I last saw him in November 2021. He continues on 400 mg of testosterone but it was mistakenly prescribed as every 4 weeks at his last visit instead of every 3 weeks. He would like to change it back to every 3 weeks. Feels like he gets great benefit from testosterone with increase in his energy and libido. 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 Patient's testosterone level in November within normal limits. His liver functions were normal in his PSA was 2.0. Hemoglobin was 16.4.Patient continues on sildenafil 60-100 mg p.r.n. good results. Yusuf Patel Jr, MD [address] [facility], [address], [place], [address], [place] - [facility] - [place] & [place] 07/07/2022 15:17:54 01/05/2023 text/html Patient is a 52-year-old white male with history of testosterone deficiency And erectile dysfunction. Returns today in routine follow-up. He continues on 200 mg of testosterone cypionate every 3 weeks. He has had some secondary polycythemia and has therapeutic phlebotomy every couple of months. Most recent hemoglobin was 19.1 on December 08 at which time he did undergo therapeutic phlebotomy. His testosterone at his last visit in June was low at 205 but he was on a 4 week schedule at that times that of 3 weeks. Patient has seen a surgical elastic knitter about his polycythemia and he was also diagnosed with sleep apnea which can cause the condition. She had no other recommendations other than therapeutic phlebotomy.Patient with history of erectile dysfunction and continues to take sildenafil with good results. Yusuf Patel Jr, MD [address], [address], [place], [address], [place] - [place] [facility] & [place] 01/05/2023 12:51:34 09/07/2023 text/html Patient is a 52-year-old white male with history of testosterone deficiency. He was last seen in December. He underwent rotator cuff surgery 2 months ago and his late getting back. He has been off of his testosterone for a couple of months and states that he is feeling a bit run down. He has a history of secondary polycythemia gets his blood taken off every 2 months. States he had not had any therapeutic phlebotomy for 3 months in his hemoglobin and June was 20. Therapeutic phlebotomy was performed at that time. Patient is receiving 400 mg of testosterone every 3 weeks. His testosterone levels in December were total of 676 and free 17.1. His PSA was 3.4 in his hemoglobin was 16.3 at that. States he is still recovering from painful rotator cuff surgery. Yusuf Patel Jr, MD [address] [place] [address], [address], [address], [facility] - [facility] & [place] 09/07/2023 14:19:17 03/07/2024 text/html Patient is 53-year-old white male with history of testosterone deficiency and erectile dysfunction. Returns today in routine follow-up. He continues on 400 mg of testosterone cypionate every 3 weeks. His free testosterone at his last visit was 2.7 but he had been off of testosterone for 2 months prior to that visit. He does have history of secondary polycythemia in his last hemoglobin was 17.4 on December 2023. He has donated blood in the past for treatment. Yusuf Patel Jr, MD [address] [place] [address], [address], [place], [address], [place] - [facility] & [place] 03/07/2024 16:11:45
[2024-08-02 10:58] VITALS: BMI 38.2
[2024-08-02 11:08] LABS: Hematocrit 55.5 % (42.0-52.0)
[2024-08-02 11:25] VITALS: BP 136/80; PULSE 117; RESP 18; O2SAT 94
[2024-08-02 12:00] VITALS: BP 130/65; PULSE 105; RESP 18; O2SAT 94
[2024-08-02 12:07] LABS: Hemoglobin 19.5 g/dL (14.1-18.0)
== END 2024-08-02 12:00 | disposition home or self-care (01) ==
LOC: INF 10:48
PROVIDERS: PCP Nurse Practitioner Family; Visit Provider Urology
DX: R71.8 Other abnormality of red blood cells (principal)
CPT/HCPCS: 36415; 85014; 85018; 99195

== ENCOUNTER 2024-09-18 12:22 | Outpatient (CLI) | payer MEDICARE, MEDICAID, SELFPAY ==
--- OUTSIDE RECORDS SUMMARY | 2024-09-12 22:33 | XMS_ITS | Continuity of Care Document ---
Author Organization [facility] Phone Care Team Providers Care Visual Merchandising Associate Name Role Phone BINDU MONTENEGRO JR Admitting NO, FAMILY P Primary Care BINDU MONTENEGRO JR Primary Attending [phone] BINDU MONTENEGRO JR Unavailable RESULTS Patient: VICKY RUANO Date of : November 10 72 LABORATORY RESULTS ORDER 100: CBC AUTO NO DIFF HEMOGRAM (LOINC: 12392-0) ORDER DATE: September 05, 2024 8:22:00 PM UTC Specimen Source: Whole Blood Specimen Type: Whole blood s ample PERFORMING LAB: [address] [id number] Result Comment: Final Result Date: September 05, 2024 8:56:00 PM UTC (TECH: HC) LOINC TEST FLAG RESULT REFERENCE RANGE UPDA DANIEL BY 6690-2 Leukocytes [#/volume] in Blood by Automated count N 10.6 10^3/uL 4.5 10^3/uL - 11.5 10^3/uL September 05, 2024 8:56:00 PM UTC (TECH: HC) 789-8 Erythrocytes [#/volume] in Blood by Automated count H 6.11 10^6/uL 4.25 10^6/uL - 5.57 10^6/uL September 05, 2024 8:56:00 PM UTC (TECH: HC) 718-7 Hemoglobin [Mass/volume] in Blood H 19.9 g/dL 13.5 g/dL - 17.2 g/dL September 05, 2024 8:56:00 PM UTC (TECH: HC) 11229-2 Hematocrit [Volume Fraction] of Blood HH 60.1 % 42.0 % - 52.0 % September 05, 2024 8:56:00 PM UTC (TECH: HC) 787-2 Erythrocyte mean corpuscular volume [Entitic volume] by Automated count H 98.4 fl 80 fl - 95 fl September 05, 2024 8:56:00 PM UTC (TECH: Writer.ly) 18285-2 Erythrocyte mean corpuscular hemoglobin [Entitic mass] in Blood from Fetus by Automated count N 32.6 pg 27.0 pg - 34.0 pg September 05, 2024 8:56:00 PM UTC (TECH: Writer.ly) 04933-9 Erythrocyte mean corpuscular hemoglobin concentration [Mass/volume] in Blood from Fetus by Automated count N 33.1 g/dL 32.0 g/dL - 36.0 g/dL September 05, 2024 8:56:00 PM UTC (TECH: Writer.ly) 67659-3 Platelets [#/volume] in Blood N 376 10^3/uL 150 10^3/uL - 450 10^3/uL September 05, 2024 8:56:00 PM UTC (TECH: Writer.ly) 96899-3 Erythrocyte distribution width [Ratio] N 14.0 % 12.3 % - 15.1 % September 05, 2024 8:56:00 PM UTC (TECH: Writer.ly) 75593-6 Platelet mean volume [Entitic volume] in Blood by Automated count N 9.8 fl 7.4 fl - 10.4 fl September 05, 2024 8:56:00 PM UTC (TECH: Writer.ly) ORDER 200: TESTOSTERONE FREE /TOT EQUILIB (LOINC: 16358-5) ORDER DATE: September 05, 2024 8:22:00 PM UTC Specimen Source: Serum/Plasm a Specimen Type: Acellular blo od (serum or plasma) specimen PERFORMING LAB: [address] [id number] Result Comment: September 11 4:10:00 PM UTC Performed at: [facility] Result Comment: September 11, 2024 4:10:00 PM UTC [address] [place], [place] [id number] Result Comment: September 11, 2024 4:10:00 PM UTC Automotive Painter: Nick Wren MD, Phone: [phone] Result Comment: September 11, 2024 4:10:00 PM UTC Final Result Date: September 05, 2024 8:22:00 PM UTC (TECH: LAB) LOINC TEST FLAG RESULT REFERENCE RANGE UPDA DANIEL BY 2986-8 Testosterone [Mass/volume] in Serum or Plasma H 1022.5 ng/dL 264.0 ng/dL - 916.0 ng/dL September 05, 2024 8:22:00 PM UTC (TECH: LAB) 2991-8 Testosterone Free [Mass/volume] in Serum or Plasma H 39.98 ng/dL 5.00-21.00 September 05, 2024 8:22:00 PM UTC (TECH: LAB) 62376-1 Prostate Specific Ag Free/Prostate specific Ag.total in Serum or Plasma N 3.91 % 1.50-4.20 September 05, 2024 8:22:00 PM UTC (TECH: LAB) ORDER 300: ESTRADIOL (LOINC: 2243-4) ORDER DATE: September 05, 2024 8:22:00 PM UTC Specimen Source: Serum/Plasm a Specimen Type: Acellular blo od (serum or plasma) specimen PERFORMING LAB: [address] [id number] Result Comment: September 12 11:09:00 PM UTC Specimen Comment: Test(s) 117395-Vddqpxrya, Sensitive Result Comment: September 12, 2024 11:09:00 PM UTC Specimen Comment: was developed and its performance characte Result Comment: September 12, 2024 11:09:00 PM UTC ristics Result Comment: September 12, 2024 11:09:00 PM UTC Specimen Comment: determined by [facility]. It has not been kate Result Comment: September 12, 2024 11:09:00 PM UTC ared or approved Result Comment: September 12, 2024 11:09:00 PM UTC Specimen Comment: by the Food and Drug Administration. Result Comment: September 12, 2024 11:09:00 PM UTC Result Comment: September 12, 2024 11:09:00 PM UTC Methodology: Liquid chromatography tandem mass Result Comment: September 12, 2024 11:09:00 PM UTC spectrometry(LC/MS/MS) Result Comment: September 12, 2024 11:09:00 PM UTC Performed at: [facility] Result Comment: September 12, 2024 11:09:00 PM UTC [facility] [place], [place] [id number] Result Comment: September 12, 2024 11:09:00 PM [facility] Automotive Painter: Nick Wren MD, Phone: [phone] Result Comment: September 12, 2024 11:09:00 PM UT Final Result Date: September 12, 2024 8:22:00 PM [facility] (TECH: LAB) LOINC TEST FLAG RESULT REFERENCE RANGE UPDA DANIEL BY 2243-4 Estradiol (E2) [Mass/volume] in Serum or Plasma H 76.1 pg/mL 8.0-35.0 September 12, 2024 8: 22:00 PM [facility] (TECH: LAB) LABORATORY NARRATIVE RESULTS Information is not available RADIOLOGY RESULTS Information is not available PATHOLOGY NARRATIVE RESULTS Information is not available MICROBIOLOGY RESULTS No Micro Labs/Results Exist for Patient BLOOD ADMIN RESULTS Information is not available MEDICATIONS HOME MEDICATIONS Status RXNORM NDC Medication Dose Route Frequency Dates Comments Reported By Updated By Drug Treatment Unknown DISCHARGE MEDICATIONS Status RXNORM NDC Medication Dose Route Frequency Dates Comments Physician Updated By No Discharge Medication Info rmation Available INPATIENT MEDICATIONS Status RXNORM NDC Medication Dose Route Frequency Rat e Quantity Dates Comments Physician Updated By No Inpatient Medication Info rmation Available SOCIAL HISTORY SOCIAL HISTORY SNOMED-CT Social History Element Description Effective Dates Offered Cessation Comment UpdatedBy [id number] Smoking Status Unknown If Ever Smoked SOCIAL HISTORY - Gender Sex: Male SOCIAL HISTORY - Status : status i nformation is not available Intention in Next Year: intention information is not available SOCIAL HISTORY - Sexual Behavior Sexual Orientation Gender Identity SNOMED-CT Description SNO MED -CT Description Activity Level No of Partners Partner Type UpdatedBy Information is not available HEALTH CONCERNS Problems Concern Status Health Concern problem infor mation not available. Smoking Status Status Years Used Consumed packs p er day Health Concern smoking histo ry information not available. Family History Concern Status Health Concern family histor y information not available. ENCOUNTERS ENCOUNTER INFORMATION Reason for Visit E34.9 Admission September 05, 2024 8:21:[address] [address] Discharge September 05, 2024 9:21:00 PM [facility] DIS CHARGED TO HOME OR SELF CARE ENCOUNTER DIAGNOSES Notes information is not carmelo ilable. Code System Diagnosis Onset Date Diagnosis information is not available. ABSTRACT DIAGNOSES Code System Diagnosis Updated By E34.9 ICD10 ENDOCRINE DISORDER, UNSPECIF IED [id number] on September 10, 2024 6:49:17 AM [facility] E34.9 ICD10 ENDOCRINE DISORDER, UNSPECIF IED [id number] on September 10, 2024 6:49:19 AM [facility] CARE TEAM Care Visual Merchandising Associate Role BINDU MONTENEGRO Admitting FAMILY NO Primary Care BINDU MONTENEGRO Primary Attending BINDU MONTENEGRO Referring CARE TEAM CARE manager pacu Role on Team Status Start Date End Date Update d By LAN Mae JR, MD Referring normal September 05, 2024 4:00:00 AM [facility] September 05, 2024 9:21:00 PM [facility] [id number] on September 06, 2024 10:23:24 AM [facility] LAN Mae JR, MD Attending normal September 05, 2024 4:00:00 AM [facility] September 05, 2024 9:21:00 PM [facility] [id number] on September 06, 2024 10:23:24 AM [facility] LAN Mae JR, MD Admitting normal September 05, 2024 4:00:00 AM [facility] September 05, 2024 9:21:00 PM [facility] [id number] on September 06, 2024 10:23:24 AM [facility] NO FAMILY PHYSICIAN PCP normal September 05, 2024 8:22:16 PM [facility] September 05, 2024 9:21:00 PM [facility] [id number] on September 06, 2024 10:23:24 AM [facility]
--- OUTSIDE RECORDS SUMMARY | 2024-09-18 12:25 | XMS_ITS | Encounter Summary ---
Author Organization Healthcare Address [address] [place] [address] Care Team Providers Care Processing Specialist Name Role Phone Ewa Sandy APRN Primary Care Provider [phone] Anatoliy Coyne MD Primary Care Provider [phone] Encounter Details Date Type Department Care Team (Late st Contact Info) Description 06/18/2022 Orders Only External Location [address] [place] [address] Anatoliy Coyne MD [address] [place], [place] [id number] Social History Tobacco Use Types Packs/Day Years Used Date Smoking Tobacco: Never Assessed Sex and Gender Information Value Date Recorded Sex Assigned at Not on file Legal Sex Male 8:20 PM EDT Gender Identity Not on file Sexual Orientation Not on file documented as of this encounter Plan of Treatment Not on file documented as of this encounter Procedures Procedure Name Priority Date/Time Associated Diagnosis Comments MR OUTSIDE IMAGES 06/18/2022 2:41 PM EDT documented in this encounter Results * MR transfer of outside films (06/18/2022 2:41 PM EDT) Anatomical Region Laterality Modality Magnetic Resonan ce 06/18/2022 2:41 PM EDT Anatoliy Coyne MD IMG MRI PROCEDURES Final Res ult documented in this encounter Visit Diagnoses Not on filedocumented in this encounter Care Teams Processing Specialist Relationship Specialty Start Date End Date Ewa Sandy APRN [address] [place] [id number] PCP - General 08/08/20 01/27/23 Anatoliy Coyne MD [address] [place] [address] [place] [id number] PCP - General 01/28/23 documented as of this encounter
--- OUTSIDE RECORDS SUMMARY | 2024-09-18 12:25 | XMS_ITS | Patient Health Record ---
Author Organization [facility] [place] Address [address] [place] [address] Care Team Providers Care Tare Weigher Name Role Phone CHRISMACHELLEZULEYMARUPERTHillary Primary Care Provider Reason For Referral No Information Medications Medication SIG (Take, Route, Frequency, Duration) Notes Start Date End Date Status PriLOSEC 20 mg 1 (one) tablet(s) or orally once a day for thirty 08/04/2016 Active Ketorolac Tromethamine 10 mg 1 (one) tablet oral oral 2 times a day for one 08/03/2016 Active Viagra 100 mg 1 (one) tablet(s) or oral once a day for thirty 05/21/2016 Active Flomax 0.4 mg 1 (one) capsule(s) o oral once a day for three 05/21/2016 Active Medrol (Joseph) 4 mg tablet(s) oral once oral once a day for six 05/21/2016 Active Atenolol 25 mg 1 (one) once a day o nce a day for ninety 07/23/2016 Active Lisinopril 40 mg for three 07/23/2016 A ctive Problems Problem Type SNOMED Code ICD Code Onset Dates Problem Status W/U Status Risk Notes Problem Generalized anxiety disorder (61845517) Generalized anxiety disorder (300.02) 09/01/19 14 Active confirmed Silvestre-Bin Problem Dysthymia (19571568) Dysthymic disorder (300.4) 09/01/19 14 Active confirmed Silvestre-Bin Problem Essential hypertension (39636581) Unspecified essential hypertension (401.9) 09/01/19 14 Active confirmed Silvestre-Bin Problem Osteoarthritis (715264641) Osteoarthrosis, unspecified whether generalized or localized, other specified sites (715.98) 09/01/19 14 Active confirmed Silvestre-Bin Problem Tinea unguium (591300140) Tinea unguium (B35.1) 03/20/20 14 Active confirmed Silvestre-Bin Plan Of Treatment No Information Medical (General) History Surgical History Surgery Date(Month/Year) hernia repair
--- OUTSIDE RECORDS SUMMARY | 2024-09-18 12:25 | XMS_ITS | Encounter Summary ---
Author Organization Healthcare Address [address] [place] [address] Care Team Providers Care Banking Representative Name Role Phone Ewa Sandy APRN Primary Care Provider + [phone] Anatoliy Coyne MD Primary Care Provider + [phone] Encounter Details Date Type Department Care Team (Late st Contact Info) Description 09/13/2018 Orders Only External Location [address] [place] [address] Provider, External Social History Tobacco Use Types Packs/Day Years [...] Procedure Name Priority Date/Time Associated Diagnosis Comments CT OUTSIDE IMAGES 09/13/2018 9:30 PM EDT documented in this encounter Results * CT OUTSIDE IMAGES (09/13/2018 9:30 PM EDT) Anatomical Region Laterality Modality Computed Tomogra phy 09/13/2018 9:30 PM EDT us External Provider IMG CT PROCEDURES Final Result documented in this encounter Visit Diagnoses Not on filedocumented in this encounter Care Teams Banking Representative Relationship Specialty Start Date End Date Ewa Sandy APRN [address] [place] [address] PCP - General 08/08/20 01/27/23 Anatoliy Coyne MD [address] [facility] [place] [address] PCP - General 01/28/23 documented as of this encounter
--- OUTSIDE RECORDS SUMMARY | 2024-09-18 12:25 | XMS_ITS | Data Portability ---
Author Organization [facility] Address [address] [facility] [address] [place] [address] Care Team Providers Care Computer Operations Supervisor Name Role Phone KASSY ARMAS Primary Care Provider KASSY ARMAS Referring Provider Assessment Encounter Date Assessment Date Assessment LastModified by Organization Details LastModified Time 06/11/2022 06/11/2022 HX: Yusuf Mccullough ch is a 51-year-old male who presents for a f/u. He has complaints of chronic pain which affects his entire body. He complains of pain affecting the hips, left greater than right, the elbows, right worse than left, the shoulders, right worse than left, the femurs and knees, worse bilaterally, pain in the low back on the left, and pain on the right side of the neck. He also states that his hands start to shake a lot, and he has had pain affecting the middle finger bilaterally. The patient also has pain affecting both elbows. The pain affects both the medial and lateral aspects of both elbows. He can get pain extending down the ulnar aspect of the forearm into the ring and little fingers. He continues to report bilateral shoulder pain currently right worse than left. Today's HPI: Patient continues with complaints in wrist, elbows, shoulders, hips, lumbar region, and lower extremities. He reports the left hip injection gave him 40% relief for only 2 days. He continues with complaints of pain in his hips, shoulders, knees, low back, and neck. His most significant complaint today is his shoulder pain. He states any activity worsens his pain. He denies any alleviating factors. States this pain is affecting his quality of life and ability to complete his daily activities. He is requesting a bilateral shoulder injection for his pain in the shoulders. He states his pain is just worsening and nothing seems to be helping . He denies any recent The primary care physician prescribes Corona and gabapentin. He is status post ORIF surgery for the right hip. Injections; 05/31/2022 #1 IA left Hip injection; 40% pain relief for 2 days. He is status post therapeutic left shoulder joint injection under fluoroscopy February 05, 2022 with 50% pain relief. He is status post bilateral sacroiliac joint injections under fluoroscopy December 11, 2021 with 50% pain relief. He is status post bilateral elbow joint injections under fluoroscopy November 27, 2021 with no ongoing pain relief. Imaging: X-rays left shoulder dated February 03, 2022 noted no acute bony abnormality. X-rays bilateral elbows dated February 03, 2022 noted no acute bony abnormality. EMG - Plan: -Will order bilateral shoulder injections w/Dr Matos in [place], no sedation, no anticoags. -Cervical XR to assess for degnerative changes -PCP has ordered MRI lumbar -Advised patient to utilize wrist splint for carpal tunnel syndrome -will order a cervical XR to assess for degenerative changes -Will give HEP for cervical pain -patient will f/u after injection to assess response His ORT score is 0 indicating low risk. Not available 06/13/2022 20:30:25 07/14/2022 07/14/2022 Kenneth is a 51-year-old gentleman with multiple pain generators. He has multijoint pain despite his age. He has bilateral elbows, shoulders and hips. He does have a history of surgery on his right hip possibly related to trauma. What surgery was carried out is not clear. From this office he has had injections in bilateral elbows as well as SI joints and his left hip and left shoulder in the past. He follows up today after a left hip injection in May provided about 40% improvement only for 2 to 3 days and then a bilateral shoulder injection on 07/07/2022 with about 60% improvement that he continues to drive. He also has a complaint of low back pain and has provided a disc with MRI on it to Dr. Matos which I do not have for evaluation today. I do not have a report. Additionally he has had an EMG and nerve conduction study of upper extremities since we have seen him last that demonstrates mild carpal tunnel and cubital tunnel syndrome bilaterally. This is been reviewed with the patient in office today. He is provided hydrocodone and gabapentin by another provider on a regular basis. This office is not providing medication for this patient. I have explained due to the steroid exposure we cannot repeat any injections until at least August 2022 and he appears to understand. The primary care physician prescribes Corona and gabapentin. He is status post ORIF surgery for the right hip. Injections; 07/07/2022 #1 IA Bilateral Shoulder injection; 60% pain relief 05/31/2022 #1 IA left Hip injection; 40% pain relief for 2 days. 02/05/2022 #1 IA Left Shoulder injection; 50% pain relief 12/11/2021 #2 Sacroiliac Bilateral Joint injection; 40-50% pain relief. 11/27/2021 #1 Elbow Bilateral Injection; 5% pain relief. 05/22/2021 #1 Sacroiliac Bilateral Joint Injection: 50% pain relief Imaging: X-rays left shoulder dated February 03, 2022 noted no acute bony abnormality. X-rays bilateral elbows dated February 03, 2022 noted no acute bony abnormality. MRI lumbar spine dated 06/18/2022: This demonstrates degenerative disc disease with protrusions at T12-L1 as well as L5-S1. There is facet arthropathy particular at L3-4 and L4-5 there is moderate. There is effacement of the left greater than right exiting nerve root at L5-S1. EMG dated 05/04/2022: This demonstrates mild right and very mild left carpal tunnel syndrome. There is mild bilateral ulnar neuropathy. Plan: Mr. Cooper is a 51-year-old gentleman with multiple pain generators. He follows up today after bilateral intra-articular shoulder injections and reports about 60% improvement. Has had multiple other injections in the past in succession. We cannot repeat any injections until at least August if not September. I explained this to him and he appears to understand. He also has complaint of low back pain bilateral hip pain. I have offered refer him to an orthopedic surgeon which she has declined. I do not have the imaging for evaluation. I explained we can repeat the injection for bilateral shoulders at least in August or September and he has chosen to contact the office to make the arrangements for the injection at that time. No medications were provided today. Addendum 09/08/2022: Patient has a primary complaint at this time of low back pain with referral into the left lower extremity extends to his calf. Symptoms are aggravated and stenotic fashion. He has called and asked us to review the MRI which I have which demonstrates neuroforaminal narrowing particular at L5-S1 and facet arthropathy at L3-4 and L4-5 with some mild narrowing at L4-5 on the left. I have recommended a left L4-5 and L5-S1 TFESI for which he is in agreement. We will place an order. All the risk and benefits of been discussed at length. All of his questions been answered. Currently he is not on any aspirin, anticoagulation or NSAIDs. We will make arrangements for this in the near future without sedation per the patient's request. [email or web address] Not available 09/08/2022 17:34:09 2022 2022 Interval history : Mr. Cooper is a 52-year-old gentleman who follows up after his first left L4-5 and L5-S1 TFESI on 10/07/2022. He reports about 50% improvement at this time. History: Mr. Cooper has multiple pain generators including multijoint pain despite his age. He has bilateral elbows, shoulders and hips. He does have a history of surgery on his right hip possibly related to trauma. What surgery was carried out is not clear. From this office he has had injections in bilateral elbows as well as SI joints and his left hip and left shoulder in the past. EMG has demonstrated carpal and cubital tunnel syndrome bilaterally. He is on gabapentin and hydrocodone by another provider. This office does not provide any medication for this patient. The primary care physician prescribes Corona and gabapentin. He is status post ORIF surgery for the right hip. Injections; 10/07/2022 #1 TF-JAMES Left L4/5, L5/S1; 50% pain relief 07/07/2022 #1 IA Bilateral Shoulder injection; 60% pain relief 05/31/2022 #1 IA left Hip injection; 40% pain relief for 2 days. 02/05/2022 #1 IA Left Shoulder injection; 50% pain relief 12/11/2021 #2 Sacroiliac Bilateral Joint injection; 40-50% pain relief. 11/27/2021 #1 Elbow Bilateral Injection; 5% pain relief. 05/22/2021 #1 Sacroiliac Bilateral Joint Injection: 50% pain relief Imaging: X-rays left shoulder dated February 03, 2022 noted no acute bony abnormality. X-rays bilateral elbows dated February 03, 2022 noted no acute bony abnormality. MRI lumbar spine dated 06/18/2022: This demonstrates degenerative disc disease with protrusions at T12-L1 as well as L5-S1. There is facet arthropathy particular at L3-4 and L4-5 there is moderate. There is effacement of the left greater than right exiting nerve root at L5-S1. EMG dated 05/04/2022: This demonstrates mild right and very mild left carpal tunnel syndrome. There is mild bilateral ulnar neuropathy. Plan: Mr. Cooper is a 52-year-old gentleman with multiple pain complaints many of which are orthopedic. His primary complaint is been of back pain with referral into the left lower extremity. Follows up after his first transforaminal epidural steroid injection reports about 50% improvement. He would like to be referred to a spine surgeon and I recommended a orthopedic spine surgeon as he has multiple orthopedic complaints as well. He is agreeable with this. His MRIs done in May. He is going to get a copy of this to take with him to the appointment once we have made the referral. He will follow-up with this office on a as needed basis. No medications were provided today. The patient is agreeable with this plan. Over 30 minutes were spent with this patient today more than 50% of time spent in counseling and coordination of his care. [email or web address] Not available 2022 15:40:32 Plan of Treatment Reminders Order Date Submit Date Provider Last Modified By Organization Details Last Modified Time Details Appointments None recorded. Lab None recorded. Referral orthopedic spine surgeon referral 2022 023 [email or web address], [address], [address], [place], [address], 3 14:19:29 Procedures intra-artic ular injection, shoulder (PROC) - #1 bilateral intra-artic ular shoulder injection w/Dr. Matos in [place], no sedation 2022 023 [email or web address] Not available 3 14:29:21 Surgeries None recorded. Imaging XR, cervical spine, 2 or 3 view 2022 023 [email or web address] Not available 3 13:02:39 Medication Orders None recorded. Patient TargetsNo targets recorded. Patient Instructions Encounter Date Encounter Id Patient Instructions Last Modified By Organization Details Last Modified Time 06/11/2022 [id number] neck pain: care instructions Not available 06/11/2022 11:47:11 neck: exercises Not available 06/11/2022 11:46:34 Reason for Referral Orthopedic Spine Surgeon Ref erral for Lumbosacral radiculitis Low back pain/lumbar radiculitis. 50% improvement after left L4-5 and L5-S1 TFESI Referring Physician: Orion Mercer, Pain Management, Encounter Date: 2022 Problems Name Problem SNOMED Code Status Onset Date Resolution Date Notes Provider Name and Address Organization Details Recorded Time Osteoarthr itis of hip 879362909 Active 2020 JUAN ALBERTO Khan [address] [place] [address], [phone] , [facility] 3 16:03:18 Pain of left shoulder joint 3856318617983 9109 Active 2021 JUAN ALBERTO Khan [address] [place] [address], [phone] , [facility] 3 16:03:20 Ulnar nerve entrapment at elbow 960740382 Active 2022 JUAN ALBERTO Khan [address] [place] [address], [phone] , [facility] 3 16:03:24 Lateral epicondyli tis of bilateral humerus 0012574009193 9108 Active 2022 JUAN ALBERTO Khan [address] [place] [address], [phone] , [facility] 3 16:03:13 Neck pain 45034595 Active 2022 YANIV REYES NP [address] [place] [address], [phone] , [facility] 3 11:45:37 Inflammati on of joint of shoulder region 861066110 Active 2022 YANIV REYES NP [address] [place] [address], [phone] , [place] [facility] 3 12:45:03 Lumbar radiculopa thy 742037139 Active 2022 ANYA MATOS MD [address] [place] [address], [phone] , [place] [facility] 3 15:45:42 Lumbar spondylosi s 899548613 Active 2022 FELISA [email or web address] - [facility] 3 14:41:45 Cervical spondylosi s 207676549 Active 2022 jacques beavers [place] - [facility] 3 14:41:45 Problem Notes None recorded. Procedures Surgical History Date Name Laterality Status Provider Name and Address Organization Details Recorded Time 10/08/19 23 Lumbar Transforaminal Epidural Steroid Injection (2 Levels Unilateral): completed Niru O[place]ala [place] [facility] 10/07/2022 13:18:15 07/08/19 23 Shoulder Joint Injection under Fluoroscopy completed ANYA MATOS MD [address] [place] [address], [phone], [place] - [facility] 07/08/2022 08:24:45 06/01/19 23 Hip Joint Injection Fluoro completed Niru [place]ala [place] - [facility] 05/31/2022 15:09:45 02/06/20 22 Shoulder Joint Injection under Fluoroscopy completed ANYA MATOS MD [address] [place] [address], [phone], [place] [facility] 02/05/2022 14:06:43 12/12/19 22 SI Joint Injection (Fluoro) completed ANYA MATOS MD [address] [place] [address], [phone], [place] [facility] 12/11/2021 15:54:13 11/28/19 22 Joint Injection: Generic completed ANYA MATOS MD [address] [place] [address], [phone], [facility] 11/30/2021 17:27:57 05/22/19 22 SI Joint Injection (Fluoro) completed ANYA MATOS MD [address] [place] [address], [phone], [facility] 05/22/2021 14:56:17 Hip Surgery completed Sunitha Goldstein [facility] 03/06/2021 08:51:53 Cholecystectomy completed Fabricio Lee [facility] 11/13/2021 10:43:58 procedure on nose completed Fabricio Jesus [facility] 11/13/2021 10:44:31 Imaging Results None recorded. Procedure Notes None recorded. Medical Equipment None Reported. Allergies No known drug allergies Medications Name Sig Start Date Stop Date Status Note LastModified by Organization Details LastModified Time clindamycin /mupirocin 100/20mg topical capsule (xylitol) [41698] MIX THE CONTENTS OF 1 CAPSULE WITH DILUENT. APPLY TO AFFECTED AREAS. PERFORM TWICE DAILY. 03/06 completed Not Available Not Available Not Available spray kit 5ml USE FIVE ML FOR MEDICATIO N ADMINISTR ATION WITH SPRAY BOTTLE #2 30ML SPRAY BOTTLES, #1 FUNNEL, SALINE 5ML VIALS #300ML 03/06 completed Not Available Not Available Not Available prednisone 10 mg tablet PRN 11/11 completed Not Available Not Available Not Available gabapentin 600 mg tablet PCP 06/11 completed Not Available Not Available Not Available prednisolon e sodium phosphate 15 mg/5 mL (3 mg/mL) oral solution 04/20 completed Not Available Not Available Not Available clindamycin HCl 300 mg capsule 04/20 completed Not Available Not Available Not Available trazodone 50 mg tablet active Not Available Not Available Not Available azithromyci n 250 mg tablet 11/13 completed Not Available Not Available Not Available ibuprofen 800 mg tablet 11/13 completed Not Available Not Available Not Available hydrocodone 5 mg-acetamin ophen 325 mg tablet 03/05 completed Not Available Not Available Not Available lisinopril 20 mg tablet 11/13 completed Not Available Not Available Not Available ondansetron HCl 4 mg tablet active Not Available Not Available Not Available prednisone 20 mg tablet 11/13 completed Not Available Not Available Not Available metronidazo le 500 mg tablet 06/11 completed Not Available Not Available Not Available fexofenadin e 180 mg tablet Take by oral route for 30 days. active Not Available Not Available No t Available amlodipine 5 mg tablet active Not Available Not Available Not Available terbinafine HCl 250 mg tablet Take by oral route. 07/08 completed Not Available Not Available Not Available famotidine 20 mg tablet 11/13 completed Not Available Not Available Not Available gabapentin 800 mg tablet PCP active Not Available Not Available Not Available ciprofloxac in 0.3 % eye drops 11/11 completed Not Available Not Available Not Available hydrocodone 7.5 mg-acetamin ophen 325 mg tablet PCP active Not Available Not Available No t Available nicotine 21 mg/24 hr daily transdermal patch active Not Available Not Available Not Available hydrochloro thiazide 25 mg tablet active Not Available Not Available No t Available mupirocin 2 % topical ointment active Not Available Not Available Not Available testosteron e cypionate 200 mg/mL intramuscul ar oil INJECT 2 ML EVERY 3 WEEKS DIRECTED IN THE MUSCLE active Not Available Not Available No t Available levofloxaci n 500 mg tablet 06/11 completed Not Available Not Available Not Available methylpredn isolone 4 mg tablets in a dose pack until finished 11/11 completed Not Available Not Available Not Available ketoconazol e 2 % topical cream APPLY UP TO 2 GRAMS TO AFFECTED AREA TWICE DAILY DIRECTED. 03/06 completed Not Available Not Available Not Available lisinopril 40 mg tablet TAKE 1 TABLET BY MOUTH DAILY active Not Available Not Available No t Available gentamicin 0.1 % topical ointment APPLY UP TO 2 GRAMS TO AFFECTED AREA TWICE DAILY DIRECTED. 03/06 completed Not Available Not Available Not Available oxycodone 5 mg tablet 04/20 completed Not Available Not Available Not Available Saline Nasal 0.65 % spray aerosol active Not Available Not Available Not Available chlorhexidi ne gluconate 0.12 % mouthwash 04/20 completed Not Available Not Available Not Available GaviLyte-G 236 gram-22.74 gram-6.74 gram-5.86 gram oral solution 03/06 completed Not Available Not Available Not Available diclofenac 1.5 % topical drops APPLY TO AFFECTED NAILS BEFORE USING SOLUTION TREATMENT . 07/08 completed Not Available Not Available Not Available Vitals Date Recorded Body height Body mass index (BMI) Body weight Oxygen saturation Oxygen saturation in Arterial blood by Pulse oximetry Heart rate Systolic blood pressure Diastolic blood pressure Provider Name and Address Organization Details Last Updated DateTime 3 180.34 cm 29.8 kg/m2 64510.7 7 g 98 % 98 % 103 /min 116 mm[Hg] 60 mm[Hg] Shu Gutierrez [facility] 3 11:24:18 Date Recorded Body height Body mass index (BMI) Body weight Heart rate Oxygen saturation Oxygen saturation in Arterial blood by Pulse oximetry Systolic blood pressure Diastolic blood pressure Provider Name and Address Organization Details Last Updated DateTime 3 180.34 cm 29.8 kg/m2 27267.7 7 g 98 /min 98 % 98 % 118 mm[Hg] 64 mm[Hg] christo vega [facility] 3 13:57:35 Date Recorded Body height Body mass index (BMI) Body weight Oxygen saturation Oxygen saturation in Arterial blood by Pulse oximetry Heart rate Systolic blood pressure Diastolic blood pressure Provider Name and Address Organization Details Last Updated DateTime 3 180.34 cm 31.7 kg/m2 138893. 47 g 98 % 98 % 103 /min 174 mm[Hg] 115 mm[Hg] jacques azul [facility] 3 15:00:06 Social History Question Answer Notes LastModified by Organizat ion Details LastModified Time Tobacco Smoking Status Current Every Day Smoker Sunitha beavers [facility] 03/06/2021 08:51:44 Do You Have An Advance Directive? No Information n ot available 11/13/2021 In The 14 Days Before Symptom Onset, Have You Had Close Contact With A Laboratory-confirm ed COVID-19 While That Case Was Ill? No Information n ot available 11/13/2021 In The 14 Days Before Symptom Onset, Have You Had Close Contact With A Person Who Is Under Investigation For COVID-19 While That Person Was Ill? No Information not available 11/13/2021 What Type Of Diet Are You Following? SPECIFIC Information n ot available 11/13/2021 Which Illicit Or Recreational Drugs Have You Used? THC [email or web address] Information not available 03/06/2021 What Is The Highest Grade Or Level Of School You Have Completed Or The Highest Degree You Have Received? [id number] Information not available 11/13/2021 What Was The Date Of Your Most Recent Tobacco Screening? 07/14/2022 [email or web address] Information not available 07/08/2022 What Is Your Relationship Status? [email or web address] Information not available 03/06/2021 How Much Tobacco Do You Smoke? 0.5 PPD [email or web address] Information not available 03/06/2021 Have You Used IV Drugs? No Information not available 11/13/2021 Sex: Unknown Functional Status Question Answer Note LastModified by Organizat ion Details LastModified Time Do you use any illicit or recreational drugs? Yes [email or web address] Information not available 03/06/2021 What is your level of alcohol consumption? None Information not available 03/06/2021 Are you currently employed? No Information not available 11/13/2021 Are you able to walk? YESWOREST [email or web address] Information not available 06/11/2022 What is your exercise level? None Information not available 01/29/2022 Mental Status None recorded. Family History Nothing Reported. Medical History Condition Response Bipolar Disease N Coronary Artery Disease N Gout N Seizure Disorder N Atrial Fibrillation N Thyroid Disease N Head Trauma/Injury N Hernia N Depression N COPD N Anxiety Disorder N Acid Reflux (GERD) N Cancer N Skin Disorder N Stroke N High Cholesterol N Liver Disease Y Rheumatoid Arthritis N Fibromyalgia N Headaches N Autoimmune Disease N Kidney Disease N Osteoarthritis N Neurosurgery N DVT N Peptic Ulcer Disease N Anemia N Heart Attack ([place]) N Diabetes N Cardiomyopathy N Bleeding Disorder N CHF N AIDS/HIV N Inflammatory Bowel Disease N Dementia N Asthma N Substance Abuse N Sleep Apnea N Hepatitis N Heart Disease N Pulmonary Embolism N Chronic Low Back Pain Y Hypertension Y Osteoporosis N Past Encounters Encounter ID Performer Location Encounter Start Date Encounter Closed Date Diagnosis/Indication Diagnosis SNOMED-CT Code Diagnosis ICD10 Code Diagnosis Note [id number] ANYA MATOS MD [place] [address] [place] [address] 03/06/2021 08:40:40 03/06/2021 10:10:08 Long-term drug therapy [id number] Z79.899 The urine sample is being sent for quantitati ve LCMS analysis of illicit drugs (Cocaine, Methamphet amine, Heroin, Fentanyl, THC, Synthetic Cannabinoi ds, Kratom, MDMA, PCP, and Synthetic Stimulants , Opiates (Codeine, Hydrocodon e, Hydromorph one, and Morphine), Oxycodone, Oxymorphon e, Methadone, Synthetic Opioids (Tramadol, Tapentadol , and Buprenorph ine), Benzodiaze pines (Alprazola m, Clonazepam , Lorazepam, Diazepam, Nordazepam , Oxazepam, and Temazepam) , Gabapentin , Pregabalin , Muscle Relaxants (Carisopro dol, Cyclobenza wolfgang, and Meprobamat e), Ketamine, Nalaxone, and Amphetamin e, as this patient is being prescribed opioid medication s for the first time at this practice. The purpose of this analysis is to confirm the patients stated medication usage and to establish baseline medication and metabolite quantities , and to evaluate for use of medication s that are not prescribed or reported by the patient. ORT and PHQ-9 testing was completed to evaluate the patient's psychosoci al health to better determine baseline risk as we consider initiating opioid medication s. The patient's ORT score of 6 indicates Moderate risk potential for medication misuse. The patients PHQ-9 of 1 indicates Minimal depression . Based on the above testing I would consider the patient to be moderate risk. Inflammati on of sacroiliac joint 47719405 M46.1 Osteoarthritis of hip 23 2049941 M16.9 [id number] MD Mony PENA [address] [place] [address] 05/22/2021 13:15:13 05/22/2021 14:13:41 Inflammation of sacroiliac joint [id number] M46.1 [id number] MD Mony PENA [address] [place] [address] 06/12/2021 10:49:23 06/12/2021 11:30:35 Inflammation of sacroiliac joint 66062364 M46.1 Osteoarthritis of hip 23 7522429 M16.9 Long-term drug therapy 889891994 Z79.180 [id number] ANYA MATOS MD [place] [address] [place] [address] 11/13/2021 09:46:53 11/13/2021 11:30:28 Inflammation of sacroiliac joint 34898923 M46.1 Osteoarthritis of hip 23 4087778 M16.0 Osteoarthritis 101272034 M15.0 [id number] MD Mony PENA [address] [place] [address] 11/27/2021 12:46:16 11/27/2021 13:51:08 Lateral epicondylitis 733223835 M77.10 [id number] MD Mony PENA [address] [place] [address] 12/11/2021 12:51:43 12/11/2021 13:19:00 Inflammation of sacroiliac joint 72398423 M46.1 [id number] MD Mony PENA [address] [place] [address] 01/29/2022 09:27:21 01/29/2022 11:00:37 Osteoarthritis 735670681 M15.0 Osteoarthritis of hip 23 5647481 M16.0 Inflammati on of sacroiliac joint 36382923 M46.1 Pain of le ft shoulder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
--- OUTSIDE RECORDS SUMMARY | 2024-09-18 12:25 | XMS_ITS | Data Portability ---
Author Organization [facility] Medicine and [facility] Address [address] [place] [address] Assessment No assessment recorded. Plan of Treatment Reminders Order Date Submit Date Provider Last Modified By Organization Details Last Modified Time Details Appointments OV EST 15 2024 01:30P M Yusuf Patel Jr, MD Not available Not available Not available Lab CBC [address] (Lab Registration) , [address] [place], [address], 09/06/2024 12:19:04 testoster one, free + total, serum [address] (Lab Registration) , [address] [place], [address], 09/06/2024 12:19:04 estradiol , serum 2024 025 ESHA [facility] (Lab Registration) , [address] [place], [address], 09/12/2024 19:11:23 testoster one, free + total, serum 2023 024 [email or web address] [facility] (Laboratory), [address] [place], [address], 03/14/2024 07:24:45 CBC [address] (Laboratory), [address] [place], [address], 03/08/2024 13:07:47 PSA, serum or plasma [address] (Laboratory), [address] [place], [address], 03/08/2024 13:07:47 estradiol , serum 2023 024 [facility] (Laboratory), [address] [place], [address], 03/13/2024 13:09:49 testoster one, free + total, serum [address] (Laboratory), [address] [place], [address], 09/14/2023 09:49:08 CBC [address] (Laboratory), [address] [place], [address], 09/14/2023 09:49:09 testoster one, free + total, serum [address] (Lab Registration) , [address] [place], [address], 01/17/2023 07:37:50 CBC [address] (Laboratory), [address] [place], [address], 01/17/2023 07:37:50 PSA, serum or plasma [address] (Laboratory), [address] [place], [address], 01/06/2023 10:51:26 testoster one, free + total, serum 2022 023 [email or web address] Not available 07/28/2022 08:03:08 CBC 2022 023 ESHA Not available 07/07/2022 16:35:45 urinalysi s, dipstick [address] [facility] [place], 8 [facility], [place], [address], 07/07/2022 12:39:47 Referral None recorded. Procedures None recorded. Surgeries None recorded. Imaging None recorded. Medication Orders sildenafi l (pulmonar y hypertens ion) 20 mg tablet 2024 025 [facility], [address] [place] [address], [facility] 2, [place], [address], 09/12/2024 23:10:30 testoster one cypionate 200 mg/mL intramusc ular oil 2024 025 [facility], [address] [place] [address], [place], [address], 09/12/2024 23:10:32 sildenafi l (pulmonar y hypertens ion) 20 mg tablet 2023 024 [facility], [address] [place] [address], [facility] 2, [place], [address], 03/07/2024 16:10:33 testoster one cypionate 200 mg/mL intramusc ular oil 2023 024 [facility], [address] [place] [address] 2, [place], [address], 03/07/2024 16:10:37 testoster one cypionate 200 mg/mL intramusc ular oil [address], [address] [place] [address], [address], [address], 09/07/2023 14:17:51 testoster one cypionate 200 mg/mL intramusc ular oil 2022 023 [facility], [address] [place] [address], [address], [place], [address], 01/05/2023 12:49:21 sildenafi l (pulmonar y hypertens ion) 20 mg tablet 2022 023 [facility], [address] [place] [address], [address], [place], [address], 07/07/2022 15:19:02 testoster one cypionate 200 mg/mL intramusc ular oil 2022 023 [email or web address] [facility], [address] [place] [address], [address], [place], [address], 07/13/2022 11:25:18 Patient TargetsNo targets recorded. Patient InstructionsNo instructions recorded. Reason for Referral None Reported. Results Created Date Observation Date Name Description Value Unit Range Abnormal Flag Note LastModifiedBy Organization Detail LastModifiedTime 07/08/1907/07/2022 CBC AUTO NO DIFF (HEMO GRAM) WBC 11.8 10 4.5-11 .5 high Not Available [facility] (Lab Registration) [address] [place], [address], 07/07/2022 16:35:45 07/08/19 23 07/07/2022 CBC AUTO NO DIFF (HEMO GRAM) RBC 5.26 10 4.25-5 .57 Not Available [facility] (Lab Registration) [address] [place], [address], 07/07/2022 16:35:45 07/08/19 23 07/07/2022 CBC AUTO NO DIFF (HEMO GRAM) HGB 17.0 g/dL 13.5-1 7.2 Not Available [facility] (Lab Registration) [address] [place], [address], 07/07/2022 16:35:45 07/08/19 23 07/07/2022 CBC AUTO NO DIFF (HEMO GRAM) HCT 50.2 % 42.0-5 2.0 Not Available [facility] (Lab Registration) [address] [place], [address], 07/07/2022 16:35:45 07/08/19 23 07/07/2022 CBC AUTO NO DIFF (HEMO GRAM) MCV 95.4 fL 80-95 high Not Available [facility] (Lab Registration) [address] [place], [address], 07/07/2022 16:35:45 07/08/19 23 07/07/2022 CBC AUTO NO DIFF (HEMO GRAM) MCH 32.3 pg 27.0-3 4.0 Not Available [facility] (Lab Registration) [address] [place], [address], 07/07/2022 16:35:45 07/08/19 23 07/07/2022 CBC AUTO NO DIFF (HEMO GRAM) MCHC 33.9 g/dL 32.0-3 6.0 Not Available [facility] (Lab Registration) [address] [place], [address], 07/07/2022 16:35:45 07/08/19 23 07/07/2022 CBC AUTO NO DIFF (HEMO GRAM) platelet count 450 10 150-45 0 Not Available [facility] (Lab Registration) [address] [place], [address], 07/07/2022 16:35:45 07/08/19 23 07/07/2022 CBC AUTO NO DIFF (HEMO GRAM) RDW 14.3 % 12.3-1 5.1 Not Available [facility] (Lab Registration) [address] [place], [address], 07/07/2022 16:35:45 07/08/19 23 07/07/2022 CBC AUTO NO DIFF (HEMO GRAM) MPV 10.0 fL 7.4-10 .4 Not Available [facility] (Lab Registration) [address] [place], [address], 07/07/2022 16:35:45 07/08/19 23 07/07/2022 CBC AUTO NO DIFF (HEMO GRAM) note Unles s other rios noted testi ng perfo rmed at: [facility] [address] [place], [place] [id number] [phone] Tanner weston MD CLIA: [id number] Not Available [facility] (Lab Registration) [address] [place], [address], 07/07/2022 16:35:45 07/08/19 23 07/07/2022 TESTO STERO NE TOTAL note Unles s other rios noted testi ng perfo rmed at: [facility] [address] [place], [place] [address] [phone] Tanner weston MD CLIA: [id number] Not Available [facility] (Lab Registration) [address] [place], [address], 07/11/2022 18:10:00 07/08/19 23 07/11/2022 TESTO STERO NE TOTAL testosterone , serum 205 NG/dL 264-91 6 low Adult male refer ence inter matteo is based on a popul ation of healt hy nonob bette males (BMI <30) betwe en 19 and 39 years old. Tori stanley, et.al . JCEM 2017, 102;1 161-1 173. PMID: 99801 103. Perfo [place]med at: [place] [address] 126 Lab Direc tor: Grady andujar PhD, Phone : [phone] Not Available [facility] (Lab Registration) [address], [address], 07/11/2022 18:10:00 07/08/19 23 07/07/2022 urina lysis , dipst ick Leukocytes (reference range) negati ve Not Available [facility] [place] [address] [place], [address], 07/07/2022 12:32:22 07/08/19 23 07/07/2022 urina lysis , dipst ick Nitrite (reference range:) negati ve Not Available [address], [address], 07/07/2022 12:32:22 07/08/19 23 07/07/2022 urina lysis , dipst ick Urobilinogen (reference range) 0.2 Not Available [address], [address], 07/07/2022 12:32:22 07/08/19 23 07/07/2022 urina lysis , dipst ick Protein (reference range) negati ve Not Available [address], [address], 07/07/2022 12:32:22 07/08/19 23 07/07/2022 urina lysis , dipst ick pH (reference range 5-8.5) 6.5 Not Available [address], [address], 07/07/2022 12:32:22 07/08/19 23 07/07/2022 urina lysis , dipst ick Blood (reference range:) negati ve Not Available [address], [address], 07/07/2022 12:32:22 07/08/19 23 07/07/2022 urina lysis , dipst ick Specific [place] (reference range) 1.010 Not Available [address], [address], 07/07/2022 12:32:22 07/08/19 23 07/07/2022 urina lysis , dipst ick Ketone (reference range) negati ve Not Available [facility] [address] [place], [address], 07/07/2022 12:32:22 07/08/19 23 07/07/2022 urina lysis , dipst ick Bilirubin (reference range) negati ve Not Available [facility] [place] [address] [place], [address], 07/07/2022 12:32:22 07/08/19 23 07/07/2022 urina lysis , dipst ick Glucose (reference range) negati ve Not Available [facility] [place] [address] [place], [address], 07/07/2022 12:32:22 01/06/20 23 01/05/2023 CBC AUTO W DIFF WBC 10.7 10 4.5-11 .5 Not Available [facility] (Lab Registration) [address], [place], [address], 01/05/2023 16:57:01 01/06/20 23 01/05/2023 CBC AUTO W DIFF RBC 4.95 10 4.25-5 .57 Not Available [facility] (Lab Registration) [address], [place], [address], 01/05/2023 16:57:01 01/06/20 23 01/05/2023 CBC AUTO W DIFF HGB 16.3 g/dL 13.5-1 7.2 Not Available [facility] (Lab Registration) [address], [place], [address], 01/05/2023 16:57:01 01/06/20 23 01/05/2023 CBC AUTO W DIFF HCT 48.2 % 42.0-5 2.0 Not Available [facility] (Lab Registration) [address], [place], [address], 01/05/2023 16:57:01 01/06/20 23 01/05/2023 CBC AUTO W DIFF MCV 97.4 fL 80-95 high Not Available [facility] (Lab Registration) [address] [place], [address], 01/05/2023 16:57:01 01/06/20 23 01/05/2023 CBC AUTO W DIFF MCH 32.9 pg 27.0-3 4.0 Not Available [facility] (Lab Registration) [address] [place], [address], 01/05/2023 16:57:01 01/06/20 23 01/05/2023 CBC AUTO W DIFF MCHC 33.8 g/dL 32.0-3 6.0 Not Available [facility] (Lab Registration) [address] [place], [address], 01/05/2023 16:57:01 01/06/20 23 01/05/2023 CBC AUTO W DIFF platelet count 419 10 150-45 0 Not Available [facility] (Lab Registration) [address] [place], [address], 01/05/2023 16:57:01 01/06/2001/05/2023 CBC AUTO W DIFF RDW 15.6 % 12.3-1 5.1 high Not Available [facility] (Lab Registration) [address] [place], [address], 01/05/2023 16:57:01 01/06/2001/05/2023 CBC AUTO W DIFF MPV 9.8 fL 7.4-10 .4 Not Available [facility] (Lab Registration) [address] [place], [address], 01/05/2023 16:57:01 01/06/2001/05/2023 CBC AUTO W DIFF granulocyte% 50.0 % 40-75 Not Available [facility] (Lab Registration) [address] [place], [address], 01/05/2023 16:57:01 01/06/20 23 01/05/2023 CBC AUTO W DIFF lymphocyte% 29.1 % 15-57 Not Available [facility] (Lab Registration) [address], [place], [address], 01/05/2023 16:57:01 01/06/20 23 01/05/2023 CBC AUTO W DIFF monocyte% 16.7 % 4.0-12 .0 high Not Available [facility] (Lab Registration) [address], [place], [address], 01/05/2023 16:57:01 01/06/20 23 01/05/2023 CBC AUTO W DIFF eosinophil% 3.2 % 0.0-4. 0 Not Available [facility] (Lab Registration) [address], [place], [address], 01/05/2023 16:57:01 01/06/20 23 01/05/2023 CBC AUTO W DIFF basophil% 0.6 % 0.0-1. 0 Not Available [facility] (Lab Registration) [address] [place], [address], 01/05/2023 16:57:01 01/06/20 23 01/05/2023 CBC AUTO W DIFF immature granulocytes % 0.4 % 0.0-0. 8 Not Available [facility] (Lab Registration) [address] [place], [address], 01/05/2023 16:57:01 01/06/20 23 01/05/2023 CBC AUTO W DIFF granulocyte# 5.35 10 Not Available [facility] (Lab Registration) [address] [place], [address], 01/05/2023 16:57:01 01/06/2001/05/2023 CBC AUTO W DIFF lymphocyte# 3.10 10 Not Available [facility] (Lab Registration) [address] [place], [address], 01/05/2023 16:57:01 01/06/20 23 01/05/2023 CBC AUTO W DIFF monocyte# 1.78 10 Not Available [facility] (Lab Registration) [address] [place], [address], 01/05/2023 16:57:01 01/06/2001/05/2023 CBC AUTO W DIFF eosinophil# 0.34 10 Not Available [facility] (Lab Registration) [address] [place], [address], 01/05/2023 16:57:01 01/06/20 23 01/05/2023 CBC AUTO W DIFF basophil# 0.06 10 Not Available [facility] (Lab Registration) [address] [place], [address], 01/05/2023 16:57:01 01/06/2001/05/2023 CBC AUTO W DIFF immature granulocytes # 0.04 10 Not Available [facility] (Lab Registration) [address] [place], [address], 01/05/2023 16:57:01 01/06/2001/05/2023 CBC AUTO W DIFF manual differential NO Not Available [facility] (Lab Registration) [address] [place], [address], 01/05/2023 16:57:01 01/06/2001/05/2023 CBC AUTO W DIFF note Unles s other rios noted testi ng perfo rmed at: [facility] [address] [place] [address] [phone] Tanner weston MD CLIA: [id number] Not Available [facility] (Lab Registration) [address] [place], [address], 01/05/2023 16:57:01 01/06/2001/05/2023 PROST ATE SPECI FIC AG (PSA) prostate specific Ag (PSA) 3.48 NG/mL 0.0-4. 0 Not Available [facility] (Lab Registration) [address] [place], [address], 01/05/2023 17:10:09 01/06/20 23 01/05/2023 PROST ATE SPECI FIC AG (PSA) note Unles s other rios noted testi ng perfo rmed at: [facility] [address] [place] [address] [phone] Tanner weston MD CLIA: [id number] Not Available [facility] (Lab Registration) [address], [place], [address], 01/05/2023 17:10:09 01/06/20 23 01/05/2023 TESTO STERO NE TOTAL note Unles s other rios noted testi ng perfo rmed at: [facility] [address] [place] [address] [phone] Tanner weston MD CLIA: [id number] Not Available [facility] (Lab Registration) [address], [place], [address], 01/07/2023 09:14:17 01/06/2001/07/2023 TESTO STERO NE TOTAL testosterone , serum 676 NG/dL 264-91 6 Adult male refer ence inter matteo is based on a popul ation of healt hy nonob bette males (BMI <30) betwe en 19 and 39 years old. Tori stanley, et.al . JCEM 2017, 102;1 161-1 173. PMID: 46626 103. Perfo rmed at: [facility] [address] [place] [address] Lab Direc tor: Grady andujar PhD, Phone : [phone] Not Available [facility] (Lab Registration) [address], [place], [address], 01/07/2023 09:14:17 01/06/20 23 01/05/2023 TESTO STERO NE FREE note Unles s other rios noted testi ng perfo rmed at: [facility] [address] [place] [address] [phone] Tanner weston MD CLIA: [id number] Not Available [facility] (Lab Registration) [address] [place], [address], 01/14/2023 03:38:03 01/06/20 23 01/14/2023 TESTO STERO NE FREE free testosterone (direct) 17.1 pg/mL 7.2-24 .0 Perfo rmed at: [facility] [place] [address] [facility] , [place] [address] Lab Direc tor: Eva kumari MD, Phone : [phone] SENT TO REFER ENCE LAB Not Available [facility] (Lab Registration) [address] [place], [address], 01/14/2023 03:38:03 09/07/19 24 09/07/2023 CBC AUTO W DIFF WBC 22.6 10 4.5-11 .5 high Not Available [facility] (Lab Registration) [address] [place], [address], 09/07/2023 16:56:15 09/07/19 24 09/07/2023 CBC AUTO W DIFF RBC 5.10 10 4.25-5 .57 Not Available [facility] (Lab Registration) [address] [place], [address], 09/07/2023 16:56:15 09/07/19 24 09/07/2023 CBC AUTO W DIFF HGB 16.6 g/dL 13.5-1 7.2 Not Available [facility] (Lab Registration) [address] [place], [address], 09/07/2023 16:56:15 09/07/19 24 09/07/2023 CBC AUTO W DIFF HCT 49.3 % 42.0-5 2.0 Not Available [facility] (Lab Registration) [address] [place], [address], 09/07/2023 16:56:15 09/07/19 24 09/07/2023 CBC AUTO W DIFF MCV 96.7 fL 80-95 high Not Available [facility] (Lab Registration) [address] [place], [address], 09/07/2023 16:56:15 09/07/19 24 09/07/2023 CBC AUTO W DIFF MCH 32.5 pg 27.0-3 4.0 Not Available [facility] (Lab Registration) [address] [place], [address], 09/07/2023 16:56:15 09/07/19 24 09/07/2023 CBC AUTO W DIFF MCHC 33.7 g/dL 32.0-3 6.0 Not Available [facility] (Lab Registration) [address] [place], [address], 09/07/2023 16:56:15 09/07/19 24 09/07/2023 CBC AUTO W DIFF platelet count 455 10 150-45 0 high Not Available [facility] (Lab Registration) [address] [place], [address], 09/07/2023 16:56:15 09/07/19 24 09/07/2023 CBC AUTO W DIFF RDW 13.6 % 12.3-1 5.1 Not Available [facility] (Lab Registration) [address] [place], [address], 09/07/2023 16:56:15 09/07/19 24 09/07/2023 CBC AUTO W DIFF MPV 9.0 fL 7.4-10 .4 Not Available [facility] (Lab Registration) [address] [place], [address], 09/07/2023 16:56:15 09/07/19 24 09/07/2023 CBC AUTO W DIFF granulocyte% 84.0 % 40-75 high Not Available [facility] (Lab Registration) [address] [place], [address], 09/07/2023 16:56:15 09/07/19 24 09/07/2023 CBC AUTO W DIFF lymphocyte% 7.5 % 15-57 low Not Available [facility] (Lab Registration) [address] [place], [address], 09/07/2023 16:56:15 09/07/19 24 09/07/2023 CBC AUTO W DIFF monocyte% 7.9 % 4.0-12 .0 Not Available [facility] (Lab Registration) [address] [place], [address], 09/07/2023 16:56:15 09/07/19 24 09/07/2023 CBC AUTO W DIFF eosinophil% 0.1 % 0.0-4. 0 Not Available [facility] (Lab Registration) [address] [place], [address], 09/07/2023 16:56:15 09/07/19 24 09/07/2023 CBC AUTO W DIFF basophil% 0.1 % 0.0-1. 0 Not Available [facility] (Lab Registration) [address] [place], [address], 09/07/2023 16:56:15 09/07/19 24 09/07/2023 CBC AUTO W DIFF immature granulocytes % 0.4 % 0.0-0. 8 Not Available [facility] (Lab Registration) [address] [place], [address], 09/07/2023 16:56:15 09/07/19 24 09/07/2023 CBC AUTO W DIFF granulocyte# 18.94 10 Not Available [facility] (Lab Registration) [address] [place], [address], 09/07/2023 16:56:15 09/07/19 24 09/07/2023 CBC AUTO W DIFF lymphocyte# 1.69 10 Not Available [facility] (Lab Registration) [address] [place], [address], 09/07/2023 16:56:15 09/07/19 24 09/07/2023 CBC AUTO W DIFF monocyte# 1.79 10 Not Available [facility] (Lab Registration) [address], [place], [address], 09/07/2023 16:56:15 09/07/19 24 09/07/2023 CBC AUTO W DIFF eosinophil# 0.03 10 Not Available [facility] (Lab Registration) [address] [place], [address], 09/07/2023 16:56:15 09/07/19 24 09/07/2023 CBC AUTO W DIFF basophil# 0.03 10 Not Available [facility] (Lab Registration) [address] [place], [address], 09/07/2023 16:56:15 09/07/19 24 09/07/2023 CBC AUTO W DIFF immature granulocytes # 0.09 10 Not Available [facility] (Lab Registration) [address] [place], [address], 09/07/2023 16:56:15 09/07/19 24 09/07/2023 CBC AUTO W DIFF manual differential NO Not Available [facility] (Lab Registration) [address] [place], [address], 09/07/2023 16:56:15 09/07/19 24 09/07/2023 CBC AUTO W DIFF note Unles s other rios noted testi ng perfo rmed at: [facility] [address] [place] [address] [phone] Tanner weston MD CLIA: [id number] Not Available [facility] (Lab Registration) [address] [place], [address], 09/07/2023 16:56:15 09/07/19 24 09/07/2023 TESTO STERO NE FREE note Unles s other rios noted testi ng perfo rmed at: [facility] [address] [place] [address] [phone] Tanner weston MD CLIA: [id number] Not Available [facility] (Lab Registration) [address] [place], [address], 09/13/2023 20:11:13 09/07/19 24 09/13/2023 TESTO STERO NE FREE free testosterone (direct) 2.7 pg/mL 7.2-24 .0 low Perfo rmed at: [facility] [place] [address] [facility] , [place] [address] Lab Direc tor: Eva kumari MD, Phone : [phone] SENT TO REFER ENCE LAB Not Available [facility] (Lab Registration) [address] [place], [address], 09/13/2023 20:11:13 03/07/20 24 03/07/2024 CBC AUTO NO DIFF (HEMO GRAM) WBC 12.5 10 4.5-11 .5 high Not Available [facility] (Lab Registration) [address] [place], [address], 03/07/2024 17:17:17 03/07/20 24 03/07/2024 CBC AUTO NO DIFF (HEMO GRAM) RBC 5.45 10 4.25-5 .57 Not Available [facility] (Lab Registration) [address] [place], [address], 03/07/2024 17:17:17 03/07/20 24 03/07/2024 CBC AUTO NO DIFF (HEMO GRAM) HGB 17.8 g/dL 13.5-1 7.2 high Not Available [facility] (Lab Registration) [address] [place], [address], 03/07/2024 17:17:17 03/07/20 24 03/07/2024 CBC AUTO NO DIFF (HEMO GRAM) HCT 53.4 % 42.0-5 2.0 high Not Available [facility] (Lab Registration) [address] [place], [address], 03/07/2024 17:17:17 03/07/20 24 03/07/2024 CBC AUTO NO DIFF (HEMO GRAM) MCV 98.0 fL 80-95 high Not Available [facility] (Lab Registration) [address] [place], [address], 03/07/2024 17:17:17 03/07/20 24 03/07/2024 CBC AUTO NO DIFF (HEMO GRAM) MCH 32.7 pg 27.0-3 4.0 Not Available [facility] (Lab Registration) [address] [place], [address], 03/07/2024 17:17:17 03/07/20 24 03/07/2024 CBC AUTO NO DIFF (HEMO GRAM) MCHC 33.3 g/dL 32.0-3 6.0 Not Available [facility] (Lab Registration) [address] [place], [address], 03/07/2024 17:17:17 03/07/20 24 03/07/2024 CBC AUTO NO DIFF (HEMO GRAM) platelet count 363 10 150-45 0 Not Available [facility] (Lab Registration) [address] [place], [address], 03/07/2024 17:17:17 03/07/20 24 03/07/2024 CBC AUTO NO DIFF (HEMO GRAM) RDW 14.2 % 12.3-1 5.1 Not Available [facility] (Lab Registration) [address] [place], [address], 03/07/2024 17:17:17 03/07/20 24 03/07/2024 CBC AUTO NO DIFF (HEMO GRAM) MPV 10.2 fL 7.4-10 .4 Not Available [facility] (Lab Registration) [address] [place], [address], 03/07/2024 17:17:17 03/07/20 24 03/07/2024 CBC AUTO NO DIFF (HEMO GRAM) note Unles s other rios noted testi ng perfo rmed at: [facility] [address] [place] [phone] Tanner weston MD CLIA: [id number] Not Available [facility] (Lab Registration) [address], [place], [address], 03/07/2024 17:17:17 03/07/20 24 03/07/2024 PROST ATE SPECI FIC AG (PSA) prostate specific Ag (PSA) 2.32 NG/mL 0.0-4. 0 Not Available [facility] (Lab Registration) [address] [place], [address], 03/07/2024 17:46:10 03/07/20 24 03/07/2024 PROST ATE SPECI FIC AG (PSA) note Unles s other rios noted testi ng perfo rmed at: [facility] [address] [place] [phone] Tanner weston MD CLIA: [id number] Not Available [facility] (Lab Registration) [address] [place], [address], 03/07/2024 17:46:10 03/07/20 24 03/07/2024 TESTO STERO NE TOTAL note Unles s other rios noted testi ng perfo rmed at: [facility] [address] [place] [phone] Tanner weston MD CLIA: [id number] Not Available [facility] (Lab Registration) [address] [place], [address], 03/08/2024 11:15:22 03/07/20 24 03/08/2024 TESTO STERO NE TOTAL testosterone , serum 134 NG/dL 264-91 6 low Adult male refer ence inter matteo is based on a popul ation of healt hy nonob bette males (BMI <30) betwe en 19 and 39 years old. Tori stanley, et.al . JCEM 2017, 102;1 161-1 173. PMID: 95954 103. Perfo rmed at: [facility] [address] [facility], [place] [id number] Lab Direc tor: Grady andujar PhD, Phone : [phone] Not Available [facility] (Lab Registration) [address], [place], [address], 03/08/2024 11:15:22 03/07/20 24 03/07/2024 TESTO STERO NE FREE note Unles s other rios noted testi ng perfo rmed at: [facility] [address] [place] [address] [phone] Tanner weston MD CLIA: [id number] Not Available [facility] (Lab Registration) [address], [place], [address], 03/11/2024 06:43:43 03/07/20 24 03/11/2024 TESTO STERO NE FREE free testosterone (direct) 3.6 pg/mL 7.2-24 .0 low Perfo rmed at: [facility] [address] [facility] [place] [place] [address] Lab Direc tor: Eva kumari MD, Phone : [phone] SENT TO [facility]FER [facility] LAB Not Available [facility] (Lab Registration) [address] [place], [address], 03/11/2024 06:43:43 03/07/20 24 03/07/2024 ESTRA DIOL note Unles s other rios noted testi ng perfo rmed at: [facility], [place] [address] [phone] Tanner weston MD CLIA: [id number] Not Available [facility] (Lab Registration) [address] [place], [address], 03/13/2024 13:09:49 03/07/20 24 03/13/2024 ESTRA DIOL estradiol, sensitive TNP pg/mL Speci men Comme nt: Test( s) 30462 0-Est radio l, Sensi tive Speci men Comme nt: was devel oped and its perfo rmanc e devan cte risti cs Speci men Comme nt: deter mined by [facility]. It has not been kate ared or appro jennifer Speci men Comme nt: by the Food and Drug Admin istra tion. Test not perfo rmed. Insuf ficie nt speci men to perfo rm or compl ete marylu sis. Conta ct: Maggy C. 03/13 Metho dolog y: Liqui d chrom atogr aphy tande m mass spect romet ry(LC /MS/M S) Perfo rmed at: - [facility] [place] [address] [facility] [place] [address] Lab Direc tor: Eva kumari MD, Phone : [phone] SENT TO REFER ENCE LAB Not Available [facility] (Lab Registration) [address] [place], [address], 03/13/2024 13:09:49 09/06/19 25 09/05/2024 CBC AUTO NO DIFF (HEMO GRAM) WBC 10.6 10 4.5-11 .5 Not Available [facility] (Lab Registration) [address] [place], [address], 09/05/2024 16:58:39 09/06/19 25 09/05/2024 CBC AUTO NO DIFF (HEMO GRAM) RBC 6.11 10 4.25-5 .57 high Not Available [facility] (Lab Registration) [address] [place], [address], 09/05/2024 16:58:39 09/06/19 25 09/05/2024 CBC AUTO NO DIFF (HEMO GRAM) HGB 19.9 g/dL 13.5-1 7.2 high Not Available [facility] (Lab Registration) [address] [place], [address], 09/05/2024 16:58:39 09/06/19 25 09/05/2024 CBC AUTO NO DIFF (HEMO GRAM) HCT 60.1 % 42.0-5 2.0 critical high Not Available [facility] (Lab Registration) [address] [place], [address], 09/05/2024 16:58:39 09/06/19 25 09/05/2024 CBC AUTO NO DIFF (HEMO GRAM) MCV 98.4 fL 80-95 high Not Available [facility] (Lab Registration) [address] [place], [address], 09/05/2024 16:58:39 09/06/19 25 09/05/2024 CBC AUTO NO DIFF (HEMO GRAM) MCH 32.6 pg 27.0-3 4.0 Not Available [facility] (Lab Registration) [address] [place], [address], 09/05/2024 16:58:39 09/06/19 25 09/05/2024 CBC AUTO NO DIFF (HEMO GRAM) MCHC 33.1 g/dL 32.0-3 6.0 Not Available [facility] (Lab Registration) [address] [place], [address], 09/05/2024 16:58:39 09/06/19 25 09/05/2024 CBC AUTO NO DIFF (HEMO GRAM) platelet count 376 10 150-45 0 Not Available [facility] (Lab Registration) [address] [place], [address], 09/05/2024 16:58:39 09/06/19 25 09/05/2024 CBC AUTO NO DIFF (HEMO GRAM) RDW 14.0 % 12.3-1 5.1 Not Available [facility] (Lab Registration) [address] [place], [address], 09/05/2024 16:58:39 09/06/19 25 09/05/2024 CBC AUTO NO DIFF (HEMO GRAM) MPV 9.8 fL 7.4-10 .4 Not Available [facility] (Lab Registration) [address] [place], [address], 09/05/2024 16:58:39 09/06/19 25 09/05/2024 CBC AUTO NO DIFF (HEMO GRAM) note Unles s other rios noted testi ng perfo rmed at: [facility] [address] [place] [phone] Tanner weston MD CLIA: [id number] Not Available [facility] (Lab Registration) [address] [place], [address], 09/05/2024 16:58:39 09/06/19 25 09/05/2024 TESTO STERO NE FREE/ TOT EQUIL IB note Unles s other rios noted testi ng perfo rmed at: [facility] [address] [place] [address] [phone] Tanner weston MD CLIA: [id number] Not Available [facility] (Lab Registration) [address] [place], [address], 09/11/2024 12:12:01 09/06/1909/11/2024 TESTO STERO NE FREE/ TOT EQUIL IB testosterone , serum 1022.5 NG/dL 264.0- 916.0 high This [facility] LC/MS -MS metho d is curre ntly certi fied by the CDC Hormo ne Stand ardiz ation Progr am (HoSt ). Adult male refer ence inter matteo is based on a popul ation of healt hy nonob bette males (BMI <30) betwe en 19 and 39 years old. Travi son, et.lazara . JCEM 2017, 102;1 161-1 173. PMID: 76744 103. Not Available [facility] (Lab Registration) [address] [place], [address], 09/11/2024 12:12:01 09/06/19 25 09/11/2024 TESTO STERO NE FREE/ TOT EQUIL IB testosterone , free 39.98 NG/dL 5.00-2 1.00 high Not Available [facility] (Lab Registration) [address] [place], [address], 09/11/2024 12:12:01 09/06/1909/11/2024 TESTO STERO NE FREE/ TOT EQUIL IB % free PSA 3.91 % 1.50-4 .20 Perfo rmed at: - [facility] [place] [address] [facility] , [place] [address] Lab Direc tor: Eva kumari MD, Phone : [phone] Not Available [facility] (Lab Registration) [address], [place], [address], 09/11/2024 12:12:01 09/06/1909/05/2024 ESTRA DIOL note Unles s other rios noted testi ng perfo rmed at: [facility] [address] [place] [address] [phone] Tanner weston MD CLIA: [id number] Not Available [facility] (Lab Registration) [address], [place], [address], 09/12/2024 19:11:23 09/06/1909/12/2024 ESTRA DIOL estradiol, sensitive 76.1 pg/mL 8.0-35 .0 high Speci men Comme nt: Test( s) 68869 0-Est radio l, Sensi tive Speci men Comme nt: was devel oped and its perfo rmanc e devan cte risti cs Speci men Comme nt: deter mined by [facility]. It has not been kate ared or appro jennifer Speci men Comme nt: by the Food and Drug Admin istra tion. Metho dolog y: Liqui d chrom atogr aphy tande m mass spect romet ry(LC /MS/M S) Perfo rmed at: [facility] - [facility] [place] [address] , [place] [address] Lab Direc tor: Eva kumari MD, Phone : [phone] Not Available [facility] (Lab Registration) [address] , [place], [address], 09/12/2024 19:11:23 Result Notes None recorded. Problems Name Problem SNOMED Code Status Onset Date Resolution Date Notes Provider Name and Address Organization Details Recorded Time Hypertensive disorder 65525218 Active 2022 Nadia Gaytan null, [place] - [facility] [place] & [place] 3 10:24:28 Environmental allergy 709268760 Active 2022 Nadia Aguilarant null, [place] [facility] [place] 3 10:24:36 Sleep apnea 54961158 Active 2022 Nadia Aguilarant null, [place] [facility] [place] 3 10:24:47 Arthritis 7762317 Active 2022 Nadia Aguilarant null, [place] [facility] [place] 3 10:24:56 Problem Notes None recorded. Procedures Surgical History Date Name Laterality Status Provider Name and Address Organization Details Recorded Time nose excision completed Nadia Aguilarant [place] [facility] [place] 07/07/2022 10:25:30 Hernia Repair completed Nadia Lukas [place] [facility] [place] 07/07/2022 10:25:42 tonsilectomy/a denoids completed Nadia Lukas [place] [facility] [place] 07/07/2022 10:26:06 Imaging Results None recorded. Procedure Notes None recorded. Medical Equipment None Reported. Allergies No known drug allergies Medications Name Sig Start Date Stop Date Status Note LastModified by Organization Details LastModified Time mixing jar, stir stick and spatula 1OZ OINTMENT JAR, MIXING STICK, SPATULA 09/05 completed Not Available Not Available Not Available clindamycin /mupirocin/ itraconazol e 150/20/50mg topical capsule [35235] MIX THE CONTENTS OF 1 CAPSULE WITH DILUENT. APPLY TO AFFECTED AREAS. PERFORM TWICE DAILY. FOLLOW WITH OINTMENT. active Not Available Not Available No t Available urea/fluoci nonide 20/ 0.05% cream [94451] APPLY UP TO 4 GRAMS TO AFFECTED AREAS TWICE DAILY DIRECTED 09/05 completed Not Available Not Available Not Available amantadine HCl 100 mg tablet 09/05 completed Not Available Not Available Not Available anastrozole 1 mg tablet Take 0.5 tablets twice a week by oral route for 30 days. 2024 active Not Available Not Available Not Avai lable prednisone 10 mg tablet 09/05 completed Not Available Not Available Not Available atorvastati n 20 mg tablet 09/05 completed Not Available Not Available Not Available trazodone 50 mg tablet 09/05 completed Not Available Not Available Not Available hydrocodone 5 mg-acetamin ophen 325 mg tablet Take 1 tablet every 6 hours by oral route. 09/05 completed Not Available Not Available Not Available urea 40 % topical cream 09/05 completed Not Available Not Available Not Available ondansetron HCl 4 mg tablet active Not Available Not Available Not Available metronidazo le 500 mg tablet 09/05 completed Not Available Not Available Not Available chlorthalid one 25 mg tablet active Not Available Not Available Not Available amlodipine 5 mg tablet active Not Available Not Available Not Available triamcinolo ne acetonide 0.1 % topical cream 09/05 completed Not Available Not Available Not Available prednisone 10 mg tablets in a dose pack 09/05 completed Not Available Not Available Not Available famotidine 20 mg tablet 09/05 completed Not Available Not Available Not Available amitriptyli ne 25 mg tablet 09/05 completed Not Available Not Available Not Available [...] No t Available cephalexin 500 mg capsule 09/05 completed Not Available Not Available Not Available nicotine 21 mg/24 hr daily transdermal patch active Not Available Not Available Not Available hydrochloro thiazide 25 mg tablet active Not Available Not Available No t Available mupirocin 2 % topical ointment 09/05 completed Not Available Not Available Not Available testosteron e cypionate 200 mg/mL intramuscul ar oil Inject 1 mL every week by intramusc ular route for 28 days. 2024 active Not Available Not Available Not Avai lable prednisone 5 mg tablets in a dose pack 09/05 completed Not Available Not Available Not Available benzoyl peroxide 5 % topical cleanser 09/05 completed Not Available Not Available Not Available levofloxaci n 500 mg tablet 09/05 completed Not Available Not Available Not Available methylpredn isolone 4 mg tablets in a dose pack 09/05 completed Not Available Not Available Not Available hydroxyzine HCl 10 mg tablet 09/05 completed Not Available Not Available Not Available lisinopril 40 mg tablet TAKE 1 TABLET BY MOUTH DAILY active Not Available Not Available No t Available gentamicin 0.1 % topical ointment APPLY UP TO 4 GRAMS TO AFFECTED AREAS TWICE DAILY DIRECTED 09/05 completed Not Available Not Available Not Available oxycodone 5 mg tablet 09/05 completed Not Available Not Available Not Available Saline Nasal 0.65 % spray aerosol active Not Available Not Available Not Available rosuvastati n 10 mg tablet 09/05 completed Not Available Not Available Not Available sildenafil (pulmonary hypertensio n) 20 mg tablet Take 3 tablets as needed by oral route. 2024 active Not Available Not Available Not Avai lable prednisone 09/05 completed Not Available Not Available Not Available lisinopril active Not Available Not Av ailable Not Available trazodone 09/05 completed Not Available Not Available Not Available gabapentin active Not Available Not Av ailable Not Available omega 3-dha-epa-f nia oil 1,000 mg (120 mg-180 mg) capsule 09/05 completed Not Available Not Available Not Available Allergy Relief (fexofenadi ne) 180 mg tablet active Not Available Not Available Not Available Marilou Allergy active Not Available Not Available Not Available Vitals Date Recorded Body height Body mass index (BMI) Body weight Provider Name and Address Organization Details Last Updated DateTime 07/07/2022 177.8 cm 32.4 kg/m2 818245.88 g Nadia Gaytan [facility] & [place] 07/07/2022 10:19:29 Date Recorded Body height Body mass index (BMI) Body weight Body temperature Provider Name and Address Organization Details Last Updated DateTime 09/05/2024 177.8 cm 39.5 kg/m2 064893.9 g 98.1 [degF] Carmelo Rosenberg [facility] & [place] 09/05/2024 13:04:35 Date Recorded Body height Body mass index (BMI) Body weight Provider Name and Address Organization Details Last Updated DateTime 09/07/2023 177.8 cm 32.4 kg/m2 120926.88 g Nadia Gaytan [facility] & [place] 09/07/2023 13:45:43 Date Recorded Body height Body weight Body temperature Provider Name and Address Organization Details Last Updated DateTime 01/05/2023 177.8 cm 180987.88 g 98 [degF] Aster Bender [facility] & [place] 01/05/2023 10:43:26 Date Recorded Body height Body mass index (BMI) Body weight Body temperature Provider Name and Address Organization Details Last Updated DateTime 03/07/2024 177.8 cm 32.4 kg/m2 448376.88 g 98.1 [degF] Ruth Lipscomb [facility] & [place] 03/07/2024 13:54:32 Social History None recorded. Functional Status None recorded. Mental Status None recorded. Family History Relationship Description Onset Age of this Age Resolved Age Notes LastModified by Organization Details LastModified Time Father No current problems or disability [email or web address] Not available 06/26 10:25:06 Mother No current problems or disability [email or web address] Not available 06/26 10:25:06 Medical History No medical history recorded. Past Encounters Encounter ID Performer Location Encounter Start Date Encounter Closed Date Diagnosis/Indication Diagnosis SNOMED-CT Code Diagnosis ICD10 Code Diagnosis Note [id number] Yusuf Patel Jr, MD [facility] [address] [address] 07/07/2022 09:57:06 07/07/2022 11:05:58 Testosterone level below reference range 951508627 R89.1 Patient with history of testostero ne deficiency . He presents for transfer of care regarding his urologic problems today. He has been on testostero ne cypionate 4 mg with good results. We will refill for him today. We will check surveillan ce labs. Erectile dysfunction 860 833832 F52.21 patient with history of erectile dysfunctio n. He continues to take 60-100 mg of sildenafil p.r.n. with good results. [id number] Yusuf [facility] Jr, [facility] [place] [address] 5 01/05/2023 09:45:39 01/05/2023 11:34:21 Testosterone level below reference range 814070246 R89.1 Patient with history of testostero ne deficiency . He has been on testostero ne cypionate 400 mg q 3 wks with good results. We will refill for him today. We will check surveillan ce labs. Erectile dysfunction 860 753568 F52.21 patient with history of erectile dysfunctio n. He continues to take 60-100 mg of sildenafil p.r.n. with good results. Screening for malignant neoplasm of prostate 535091997 Z12.5 PSA to be drawn today. 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 Continue testostero ne cypionate 400 mg every 3 weeks. Check surveillan ce labs today. Erectile dysfunction 860 289775 F52.21 patient with history of erectile dysfunctio n. He continues to take 60-100 mg of sildenafil p.r.n. with good results Although has not been sexually active since his surgery. Screening for malignant neoplasm of prostate 705502576 Z12.5 P PSA was 3.4 in December. We will recheck at his next visit. [id number] Yusuf Patel Jr, MD [facility] [address] [address] 03/07/2024 13:34:05 03/07/2024 14:10:59 Testosterone level below reference range 741020556 R89.1 Patient with history of testostero ne [...] midcycle. Screening for malignant neoplasm of prostate 611039593 Z12.5 P PSA was 3.4 in December 2022. We will repeat today. Erectile dysfunction 860 785940 F52.21 patient with history of erectile dysfunctio n. He continues to take 60-100 mg of sildenafil p.r.n. with good results . We will refill today. 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 Testostero ne levels were low on 400 mg every 3 weeks. We discussed increasing is regimen and will go to 200 mg every week. Erectile dysfunction 860 769944 N52.9 patient with history of erectile dysfunctio n. He continues to take 60-100 mg of sildenafil p.r.n. with good results . We will refill today. Screening for malignant neoplasm of prostate 704730964 Z12.5 patient's PSA was 2.3 in February 2024. He was reassured and will recheck at his next visit. 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 Hemoglobin on 08/02/2024 was 19.5. He did undergo therapeuti c phlebotomy . Will recheck hemoglobin today. Health Concerns Section Related Observation LastModified by Organization Detai ls LastModified Time None Recorded Concern Status LastModified by Organization Details LastModified Time None Recorded Advance Directives Directive None Recorded Payers Insurance Date Sequence Insurance Name Policy Number Policy Knox Covered Member ID Knox Member ID Guarantor Name 09/05/2024 2 [place] [employer] [facility] CHO[facility] - FFS/TRADITIO NAL Yusuf Cooper [id number] Yusuf Cooper 09/14/2024 1 [employer] - DUAL COMPLETE (MEDICARE REPLACEMENT/ ADVANTAGE - HMO) [id number] Yusuf Cooper [id number] Yusuf Cooper 09/05/[address] [facility] (MEDICAID HMO) Yusuf Kenneth [id number] Yusuf Kenneth Notes Date Note Type Note Provider Name and Address Organization Details Recorded Time 07/07/2022 text/html patient is a 51-year-old white male with a history of testosterone deficiency. He also has erectile dysfunction. He was previously seen at [facility]. He comes to the [facility] today for transfer of care. I [...] p.r.n. good results. Yusuf Patel Jr, MD [address] [place] [address], [address], [place], [address], [place] [facility] [place] [facility] [place] 07/07/2022 15:17:54 01/05/2023 text/html Patient is a [...] of 3 weeks. Patient has seen a marketing strategy manager about his polycythemia and he was also diagnosed with sleep apnea which can cause the condition. She had no other recommendations other than therapeutic phlebotomy.Patient with history of erectile dysfunction and continues to take sildenafil with good results. Yusuf Patel Jr, MD [address] [place] [address], [address], [place], [address], [facility] - [facility] & [place] 01/05/2023 12:51:34 09/07/2023 text/html Patient is a [...] rotator cuff surgery. Yusuf Patel Jr, MD [address] [place] [address], [address], [place], [address], [facility] - [facility] & [place] 09/07/2023 14:19:17 03/07/2024 text/html Patient is 53-year-old [...] past for treatment. Yusuf Patel Jr, MD [address] [place] [address], [address], [place], [address], [place] [facility] & [place] 03/07/2024 16:11:45 09/05/2024 text/html Patient is 53-year-old white male with history of testosterone deficiency and erectile dysfunction. Returns for six-month checkup today. Testosterone levels in February 25.610 days after his last injection. He continues on 4 mg of testosterone cypionate every 3 weeks. Patient has a history of secondary polycythemia in his recent hemoglobin on 08/02/2024 was 19.5. He states he has undergone therapeutic phlebotomy since that time.Patient with history of erectile dysfunction and on sildenafil as needed. Yusuf Patel Jr, MD [address] [facility], [address], [place], [address], [place] [facility] & [place] 09/12/2024 23:09:49
--- OUTSIDE RECORDS SUMMARY | 2024-09-18 12:25 | XMS_ITS | Encounter Summary ---
Author Organization Healthcare Address [address] [place] [address] Care Team Providers Care Cushion Mat Maker Name Role Phone Ewa Sandy APRN Primary Care Provider + [phone] Anatoliy Coyne MD Primary Care Provider + [phone] Encounter Details Date Type Department Care Team (Late st Contact Info) Description 12/30/2022 Orders Only External Location [address] [place] [address] Provider, External Social History Tobacco Use Types [...] Date/Time Associated Diagnosis Comments MR OUTSIDE IMAGES 12/30/2022 9:44 AM EDT documented in this encounter Results * MR transfer of outside films (12/30/2022 9:44 AM EDT) Anatomical Region Laterality Modality Magnetic Resonan ce 12/30/2022 9:44 AM EDT us External Provider IMG MRI PROCEDURES Final Resul t documented in this encounter Visit Diagnoses Not on filedocumented in this encounter Care Teams Cushion Mat Maker Relationship Specialty Start Date End Date Ewa Sandy APRN [address] [place] [address] PCP - General 08/08/20 01/27/23 Anatoliy Coyne MD [address] [place] [address] PCP - General 01/28/23 documented as of this encounter
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
--- OUTSIDE RECORDS SUMMARY | 2024-09-18 12:25 | XMS_ITS | Encounter Summary ---
Author Organization Healthcare Address [address] [place] [address] Care Team Providers Care Wallboard Worker Name Role Phone Ewa Sandy APRN Primary Care Provider + [phone] Anatoliy Coyne MD Primary Care Provider + [phone] Encounter Details Date Type Department Care Team (Late st Contact Info) Description 09/13/2018 Orders Only External Location [address] [place] [address] Provider, External Social History Tobacco Use Types [...] Associated Diagnosis Comments CT OUTSIDE IMAGES 09/13/2018 9:34 PM EDT documented in this encounter Results * CT OUTSIDE IMAGES (09/13/2018 9:34 PM EDT) Anatomical Region Laterality Modality Computed Tomogra phy 09/13/2018 9:34 PM EDT us External Provider IMG CT PROCEDURES Final Result documented in this encounter Visit Diagnoses Not on filedocumented in this encounter Care Teams Wallboard Worker Relationship Specialty Start Date End Date Ewa Sandy APRN [address] [place] [address] PCP - General 08/08/20 01/27/[address] [facility] [place] [id number] PCP - General 01/28/23 documented as of this encounter
--- OUTSIDE RECORDS SUMMARY | 2024-09-18 12:26 | XMS_ITS | Encounter Summary ---
Author Organization Healthcare Address [address] [place] [address] Care Team Providers Care Cake Puller Name Role Phone Anatoliy Coyne MD Primary Care Provider [phone] Encounter Details Date Type Department Care Team ([facility] st Contact Info) Description 04/13/2023 Orders Only External Location [address] [place] [address] Provider, External Social History Tobacco Use Types Packs/Day Years Used Date Smoking Tobacco: Every Day Cigarettes 1 20 Smokeless Tobacco: Never Alcohol Use Standard Drinks/Week Comments Yes 3 [...] Date/Time Associated Diagnosis Comments MR OUTSIDE IMAGES 04/13/2023 2:56 PM EST documented in this encounter Results * MR transfer of outside films (04/13/2023 2:56 PM EST) Anatomical Region Laterality Modality Magnetic Resonan ce 04/13/2023 2:56 PM EST us External Provider IMG MRI PROCEDURES Final Resul t documented in this encounter Visit Diagnoses Not on filedocumented in this encounter Additional Health Concerns Assessment Noted Time A fall risk assessment has been complete d for the patient 03/29/2023 3:00 PM EST A Body Mass Index follow-up plan has been documented for the patient 03/29/2023 4:09 PM EST documented as of this encounter Care Teams Cake Puller Relationship Specialty Start Date End Date Anatoliy Coyne MD [address] [place] [address] PCP - General 01/28/23 documented as of this encounter
--- OUTSIDE RECORDS SUMMARY | 2024-09-18 12:26 | XMS_ITS | Continuity of Care Document ---
Author Organization [facility] Address [address] [place] [address] Assessment No assessment recorded. Plan of Treatment Reminders Order Date Submit Date Provider Last Modified By Organization Details Last Modified Time Details Appointments OV EST 15 2024 01:30P M Yusuf Patel Jr, MD Not available Not available Not available Lab CBC [address] (Lab Registration) , [address] [place] [address] , [place], [address], 09/06/2024 12:19:04 testoster one, free + total, serum [address] (Lab Registration) , [address] [place] [address] , [place], [address], 09/06/2024 12:19:04 estradiol , serum 2024 025 [facility] (Lab Registration) , [address] [place] [address] , [place], [address], 09/12/2024 19:11:23 Referral None recorded. Procedures None recorded. Surgeries None recorded. Imaging None recorded. Medication Orders sildenafi l (pulmonar y hypertens ion) 20 mg tablet 2024 025 [facility], [address], [address], [place], [address], 09/12/2024 23:10:30 testoster one cypionate 200 mg/mL intramusc ular oil 2024 025 [facility], [address], [address], [place], [address], 09/12/2024 23:10:32 Patient TargetsNo targets recorded. Patient InstructionsNo instructions recorded. Reason for Referral None Reported. Problems Name Problem SNOMED Code Status Onset Date Resolution Date Notes Provider Name and Address Organization Details Recorded Time Hypertensive disorder 31897193 Active 2022 Nadia beavers, FELISA - LPNT [facility] & [place] 3 10:24:28 Environmental allergy 065569151 Active 2022 Nadia beavers, FELISA Lira LPNT [facility] & [place] 3 10:24:36 Sleep apnea 20883942 Active 2022 Nadia beavers, FELISA - LPNT [facility] & [place] 3 10:24:47 Arthritis 5798245 Active 2022 Nadia beavers, FELISA Lira LPNT - [place] & [place] 3 10:24:56 Problem Notes None recorded. Procedures Surgical History Date Name Laterality Status Provider Name and Address Organization Details Recorded Time nose excision completed Nadia HIRSCH [facility] & [place] 07/07/2022 10:25:30 Hernia Repair completed Nadiamarj HIRSCH [facility] & [place] 07/07/2022 10:25:42 tonsilectomy/a denoids completed Nadiasafia HIRSCH [facility] & [place] 07/07/2022 10:26:06 Imaging Results None recorded. Procedure Notes None recorded. Medical Equipment None Reported. Allergies No known drug allergies Medications Name Sig Start Date Stop Date Status Note LastModified by Organization Details LastModified Time mixing jar, stir stick and spatula 1OZ OINTMENT JAR, MIXING STICK, SPATULA 09/05 completed Not Available Not Available Not Available clindamycin /mupirocin/ itraconazol e 150/20/50mg topical capsule [92964] MIX THE CONTENTS OF 1 CAPSULE WITH DILUENT. APPLY TO AFFECTED AREAS. PERFORM TWICE DAILY. FOLLOW WITH OINTMENT. active Not Available Not Available No t Available urea/fluoci nonide 20/ 0.05% cream [01913] APPLY UP TO 4 GRAMS TO AFFECTED [...] active Not Available Not Available Not Available Mairlou Allergy active Not Available Not Available Not Available Vitals Date Recorded Body height Body mass index (BMI) Body weight Body temperature Provider Name and Address Organization Details Last Updated DateTime 09/05/2024 177.8 cm 39.5 kg/m2 853471.9 g 98.1 [degF] Carmelo ROBERTO - [facility] & [place] 09/05/2024 13:04:35 Social History None recorded. Functional Status None recorded. Mental Status None recorded. Family History Relationship Description Onset Age of this Age Resolved Age Notes LastModified by Organization Details LastModified Time Father No current problems or disability [email or web address] Not available 06/26 10:25:06 Mother No current problems or disability [email or web address] Not available 06/26 10:25:06 Medical History No medical history recorded. Past Encounters Encounter ID Performer Location Encounter Start Date Encounter Closed Date Diagnosis/Indication Diagnosis SNOMED-CT Code Diagnosis ICD10 Code Diagnosis Note [id number] Yusuf Patel Jr, MD [facility] [address] [address] 09/05/2024 12:56:54 09/05/2024 13:40:18 Hypotestosteronism 2349989146 104 E34.9 Patient with history of testostero ne deficiency . Testostero ne levels were low on 400 mg every 3 weeks. We discussed increasing is regimen and will go to 200 mg every week. Erectile dysfunction 860 360024 N52.9 patient with history of erectile dysfunctio n. He continues to take 60-100 mg of sildenafil p.r.n. with good results . We will refill today. Screening for malignant neoplasm of prostate 271701226 Z12.5 patient's PSA was 2.3 in February 2024. He was reassured and will recheck at his next visit. 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 Hemoglobin on 08/02/2024 was 19.5. He did undergo therapeuti c phlebotomy . Will recheck hemoglobin today. Health Concerns Section Related Observation LastModified by Organization Detai ls LastModified Time None Recorded Concern Status LastModified by Organization Details LastModified Time None Recorded Payers Encounter Date Sequence Insurance Name Policy Number Policy Knox Covered Member ID Knox Member ID Guarantor Name 09/05/2024 1 [employer] - DUAL COMPLETE (MEDICARE REPLACEMENT/ ADVANTAGE - HMO) [id number] Yusuf Cooper [id number] Yusuf Cooper 09/05/2024 2 MEDICAID-[place] [facility] CHOICES - FFS/TRADITIO NAL Yusuf Cooper [id number] Yusuf Cooper Notes Date Note Type Note Provider Name and Address Organization Details Recorded Time 09/05/2024 text/html Patient is 53-year-old white male with history of testosterone deficiency and erectile dysfunction. Returns for six-month checkup today. Testosterone levels in February 253.610 days after his last injection. He continues on 4 mg of testosterone cypionate every 3 weeks. Patient has a history of secondary polycythemia in his recent hemoglobin on 08/02/2024 was 19.5. He states he has undergone therapeutic phlebotomy since that time.Patient with history of erectile dysfunction and on sildenafil as needed. Yusuf Patel Jr, MD [address] [place] [address], [address], [place], [address], [facility] - [place] & [place] 09/12/2024 23:09:49
--- OUTSIDE RECORDS SUMMARY | 2024-09-18 12:26 | XMS_ITS | Encounter Summary ---
Author Organization Healthcare Address [address] [place] [address] Care Team Providers Care Ap Processor Name Role Phone Ewa Sandy APRN Primary Care Provider + [phone] Anatoliy Coyne MD Primary Care Provider + [phone] Encounter Details Date Type Department Care Team (Late st Contact Info) Description 09/13/2018 Orders Only External Location [address] [place] [address] Provider, External Social History Tobacco Use Types [...] Associated Diagnosis Comments CT OUTSIDE IMAGES 09/13/2018 9:39 PM EDT documented in this encounter Results * CT OUTSIDE IMAGES (09/13/2018 9:39 PM EDT) Anatomical Region Laterality Modality Computed Tomogra phy 09/13/2018 9:39 PM EDT us External Provider IMG CT PROCEDURES Final Result documented in this encounter Visit Diagnoses Not on filedocumented in this encounter Care Teams Ap Processor Relationship Specialty Start Date End Date Ewa Sandy APRN [address] [place] [address] PCP - General 08/08/20 01/27/23 Anatoliy Coyne MD [address] [facility] [place] [id number] PCP - General 01/28/23 documented as of this encounter
--- OUTSIDE RECORDS SUMMARY | 2024-09-18 12:26 | XMS_ITS | Encounter Summary ---
Author Organization Healthcare Address [address] [place] [address] Care Team Providers Care Fire Eater Name Role Phone Anatoliy Cyone MD Primary Care Provider Encounter Details Date Type Department Care Team ([facility] st Contact Info) Description 03/25/2023 Orders Only External Location [address] [place] [address] Provider, External Social History Tobacco Use Types [...] Date/Time Associated Diagnosis Comments MR OUTSIDE IMAGES 03/25/2023 3:17 PM EST documented in this encounter Results * MR transfer of outside films (03/25/2023 3:17 PM EST) Anatomical Region Laterality Modality Magnetic Resonan ce 03/25/2023 3:17 PM EST us External Provider IMG MRI PROCEDURES Final Resul t documented in this encounter Visit Diagnoses Not on filedocumented in this encounter Additional Health Concerns Assessment Noted Time A fall risk assessment has been complete d for the patient 02/24/2023 1:44 PM EST A Body Mass Index follow-up plan has been documented for the patient 02/24/2023 2:30 PM EST documented as of this encounter Care Teams Fire Eater Relationship Specialty Start Date End Date Anatoliy Coyne MD [address] [place] [address] PCP - General 01/28/23 documented as of this encounter
[2024-09-18 12:29] VITALS: BMI 37.6
--- NOTE | 2024-09-18 12:35 | PC.NURSE ---
Pt presents today for lab check and phlebotomy if needed. Venipuncture performed per Jessy Jacobo RN x 1 stick to pt's rt wrist using a butterfly access needle. Blood drawn as needed for labs as ordered and needle withdrawn. Site secured with 2x2 gauze and coban. Specimen sent to lab for analysis. Will await results to determine poc.
[2024-09-18 12:41] LABS: Hematocrit 55.1 % (42.0-52.0)
[2024-09-18 13:10] VITALS: BP 145/95; PULSE 78; RESP 20; TEMP 36.8; O2SAT 97
[2024-09-18 14:03] VITALS: BP 143/75; PULSE 88; RESP 20; O2SAT 98
== END 2024-09-18 14:03 | disposition home or self-care (01) ==
LOC: LAB 12:23 → INF 12:33
PROVIDERS: PCP Nurse Practitioner Family; Visit Provider Urology
DX: R71.8 Other abnormality of red blood cells (principal)
CPT/HCPCS: 36415; 85014; 85018; 99195

== ENCOUNTER 2024-11-07 13:49 | Outpatient (POV) | payer MEDICARE, MEDICAID, SELFPAY ==
--- OUTSIDE RECORDS SUMMARY | 2024-11-07 14:02 | XMS_ITS | Patient Health Record ---
Author Organization [facility] [place] Address [address] [address] Care Team Providers Care Financial Reserve Clerk Name Role Phone YUMIKO PEREZ Primary Care Provider Reason For Referral No Information Medications Medication SIG (Take, Route, Frequency, Duration) Notes Start Date End Date Status PriLOSEC 20 mg 1 (one) tablet(s) or orally once a day; Duration: thirty 08/04/2016 Active Ketorolac Tromethamine 10 mg 1 (one) tablet oral oral 2 times a day; Duration: one 08/03/2016 Active Viagra 100 mg 1 (one) tablet(s) or oral once a day; Duration: thirty 05/21/2016 Active Flomax 0.4 mg 1 (one) capsule(s) o oral once a day; Duration: three 05/21/2016 Active Medrol (Joseph) 4 mg tablet(s) oral once oral once a day; Duration: six 05/21/2016 Active Atenolol 25 mg 1 (one) once a day o nce a day; Duration: ninety 07/23/2016 Active Lisinopril 40 mg ; Duration: three 07/23/201603/1899 Active Problems Problem Type SNOMED Code ICD Code Onset Dates Problem Status W/U Status Risk Notes Problem Generalized anxiety disorder (08568644) Generalized anxiety disorder (300.02) 09/01/19 14 Active confirmed Silvestre-Bin Problem Dysthymia (90561883) Dysthymic disorder (300.4) 09/01/19 14 Active confirmed Silvestre-Bin Problem Essential hypertension (57803103) Unspecified essential hypertension (401.9) 09/01/19 14 Active confirmed Silvestre-Bin Problem Osteoarthritis (048701969) Osteoarthrosis, unspecified whether generalized or localized, other specified sites (715.98) 09/01/19 14 Active confirmed Silvestre-Bin Problem Tinea unguium (549471369) Tinea unguium (B35.1) 03/20/20 14 Active confirmed Silvestre-Bin Plan Of Treatment No Information Medical (General) History Surgical History Surgery Date(Month/Year) hernia repair
--- OUTSIDE RECORDS SUMMARY | 2024-11-07 14:02 | XMS_ITS | Encounter Summary ---
Author Organization Healthcare Address [address] [place] [address] Care Team Providers Care Milling/Polishing Operator Name Role Phone Ewa Sandy APRN Primary Care Provider + [phone] Anatoliy Coyne MD Primary Care Provider + [phone] Encounter Details Date Type Department Care Team (Late st Contact Info) Description 09/13/2018 Orders Only External Location [address] [place] [address] Provider, External Social History Tobacco Use Types [...] on filedocumented in this encounter Care Teams Milling/Polishing Operator Relationship Specialty Start Date End Date Ewa Sandy APRN [address] [place] [address] PCP - General 08/08/20 01/27/23 Anatoliy Coyne MD [address] [facility] [place] [address] PCP - General 01/28/23 documented as of this encounter
--- OUTSIDE RECORDS SUMMARY | 2024-11-07 14:02 | XMS_ITS | Clinical Summary ---
Author Organization [facility] Address [address] [place] [address] Care Team Providers Care Switch Maker Name Role Phone Anatoliy Coyne MD Primary Care Provider [phone] Allergies No known active allergies Medications amLODIPine (Norvasc) 5 MG tablet Take by mouth every night. Active HYDROcodone-ac etaminophen ([place]) 7.5-325 MG tablet Take by mouth 2 [...] each day. 3 Active HM Saline Nasal [place] 0.65 % nasal spray Administer into each [...] Date Last Done Comments [facility]-HIV Screening 1971 [facility]-Infant/Child/Adol SDOH Screenings 1971 [facility]- SDOH Screenings 11/10/1989 [facility]-Adult SDOH Screenings 11/10/1989 [facility]-Hepatitis B Vaccines (1 of 3 - 19+ 3-dose series) 11/10/1990 [facility]-Zoster Vaccines (1 of 2) 11/10/1990 CT Colonography 11/10/2016 Colonoscopy 11/10/2016 FIT-DNA 11/10/2016 FIT 11/10/2016 FOBT 11/10/2016 Sigmoidoscopy 11/10/2016 [facility]-Colorectal Cancer Screening 11/10/2016 [id number] Vaccine (3 - Moderna risk series) 01/23/2021 12/26/2020, 11/28/2020 [facility]-Pneumococcal Vaccine: 50+ Years (2 of 2 - PPSV23) 11/10/2021 09/14/2018 [facility]-Depression Screening 02/15/2024 02/14/2023 [facility]-Influenza Vaccine (#1) 2024 [facility]-DTaP,Tdap,and Td Vaccines (2 - Td [...] IMG CT PROCEDURES Final Re sult * [place] Hepatitis C Antibody (09/09/2018 12:31 AM EDT) [place] Hepatitis C Ab NEGATIVE Reference Range: Negative SUNQUEST 09/09/2018 12:3 1 AM EDT 09/09/2018 12:38 AM EDT Yosvany Baca MD LAB BLOOD ORDERABLES Final Result SUNQUEST from Last 3 Months or Most Recently Relevant to Health Maintenance Insurance [employer] [facility] MEDICAID Care Teams Switch Maker Relationship Specialty Start Date End Date Anatoliy Coyne MD [address] [id number] PCP - General 01/28/23
--- OUTSIDE RECORDS SUMMARY | 2024-11-07 14:02 | XMS_ITS | Clinical Summary ---
Author Organization [facility] Address [address] [place] [address] Care Team Providers Care Manager Port Name Role Phone Jacques Maher DO Primary Care Provider [phone] Allergies No known active allergies Medications ondansetron (ZOFRAN) 4 MG tablet Take 1 tablet by mouth Every 8 (Eight) Hours As Needed post op nausea 30 tablet 07/14/2023 2:06 PM EDT 07/07/2023 Active gabapentin (NEURONTIN) 800 MG tablet Take 1 tablet by mouth 3 (Three) Times a Day. Active lisinopril (PRINIVIL,ZESTR IL) 40 MG tablet Take 2 tablets by mouth Daily. Active amitriptyline (ELAVIL) 25 MG tablet Take 1 tablet by mouth Every Night. Active sodium chloride 0.65 % nasal spray 1 spray into the nostril(s) as directed by provider As Needed for Congestion. Active fexofenadine (CHARLOTTE) 180 MG tablet Take 1 tablet by mouth Daily. Active TESTOSTERONE CYPIONATE IJ Inject 1 dose as directed Every 6 (Six) Weeks. Active multivitamin with minerals (MULTIVITAMIN ADULT PO) Take 1 tablet by mouth Daily. Active oxyCODONE (ROXICODONE) 5 MG immediate release tablet Take 1-2 tablets by mouth Every 4 (Four) Hours As Needed for Moderate Pain. 60 tablet 07/22/2023 Active Active Problems No known active problems Social History Tobacco Use Types Packs/Day Years Used Date Smoking Tobacco: Every Day Cigarettes Smokeless Tobacco: Never Tobacco Cessation:Ready to Q uit: Not Asked; Counseling Given: Not Answered Alcohol Use Standard Drinks/Week Comments Yes 12 (1 standard drink = 0.6 oz pu re alcohol) Abuse Screen Answer Date Recorded Feels Unsafe at Home or Work/School no 07/22/2023 Feels Threatened by Someone no 06/27 Does Anyone Try to Keep You From Having Contact with Others or Doing Things Outside Your Home? no 07/22/2023 Physical Signs of Abuse Present no 07/22/2023 Housing Stability Answer Date Recorded Current Living Arrangements home 06/27 Potentially Unsafe Housing Conditions Not on ben e 07/22/2023 Family and Community Support Answer Vince e Recorded Help with Day-to-Day Activities Not on file 01/05/2023 Lonely or Isolated Not on file 01/05/2023 Employment Answer Date Recorded Do you want help finding or keeping work or a akash b? Not on file 01/05/2023 Disabilities Answer Date Recorded Difficulty Concentrating, Remembering or Making Decisions no 07/22/2023 Difficulty Managing Errands Independently no 07/22/2023 Education Answer Date Recorded Help with school or training? Not on file Preferred Language Malay 07/14/2023 Sex and Gender Information Value Date Recorded Sex Assigned at Not on file Legal Sex Male 12:01 PM EDT Gender Identity Not on file Sexual Orientation Not on file Last Filed Vital Signs Vital Sign Reading Time Taken Comments Blood Pressure 128/66 07/22/2023 6:00 PM EDT Pulse 97 07/22/2023 6:00 PM EDT Temperature 36.7 C (98 F) 07/22/2023 6:00 PM EDT Respiratory Rate 16 07/22/2023 6:00 PM EDT Oxygen Saturation 95% 07/22/2023 6:00 PM EDT Inhaled Oxygen Concentration - - Weight 114 kg (251 lb) 07/22/2023 1:55 PM EDT Height 177.8 cm (5' 10 ) 07/22/2023 1:55 PM EDT Body Mass Index 36.01 07/22/2023 1:55 PM EDT Plan of Treatment Health Maintenance Due Date Last Done Comments COLOGUARD 11/10/2016 COLON CANCER SCREENING 5 EDGARD Mae SIGMOIDOSCOPY 11/10/2016 COLONOSCOPY 11/10/2016 COLORECTAL CANCER SCREENING 11/10/2016 CT COLONOGRAPHY 11/10/2016 FECAL OCCULT BLOOD TEST 11/10/2016 FIT Testing (1 year) 11/10/2016 Pneumococcal Vaccine 50+ (2 of 2 - PPSV23) 11/10/2021 09/14/2018 ZOSTER VACCINE (1 of 2) 11/10/2021 ANNUAL PHYSICAL 07/14/2023 HEPATITIS C SCREENING 07/14/2023 COVID-19 Vaccine (3 - 2023- season) 11/27/202303/2020, 11/28/2020 INFLUENZA VACCINE 12/26/2024 TDAP/TD VACCINES (2 - Td or Tdap) 09/09/2028 019 Medical Devices Implanted Type Area Faa Certified Powerplant Mechanic Device Identifier Shelf Expiration Date Model / Serial / Lot Sys Sut/Anch Biocomp Speedbridge 4.85 12.5 - [id number] Implanted:Qty: 1 on 07/22/2023 by Humberto Mohan MD at [facility] Implant Left: Shoulder ARTHREX 04/27/2027 [id number] / / [id number] Insurance [facility] Care Teams Manager Port Relationship Specialty Start Date End Date Jacques Maher DO [address] [place] [address] [place] [address] PCP - General Internal Medicine 07/14/23
--- OUTSIDE RECORDS SUMMARY | 2024-11-07 14:02 | XMS_ITS | Encounter Summary ---
Author Organization Healthcare Address [address] [place] [address] Care Team Providers Care Chief Communications Officer Name Role Phone Ewa Sandy APRN Primary Care Provider + [phone] Anatoliy Coyne MD Primary Care Provider + [phone] Encounter Details Date Type Department Care Team (Late st Contact Info) Description 09/13/2018 Orders Only External Location [address] [place] [address] Provider, External Social History Tobacco Use Types [...] on filedocumented in this encounter Care Teams Chief Communications Officer Relationship Specialty Start Date End Date wEa Sandy APRN [address] [place] [address] PCP - General 08/08/20 01/27/23 Anatoliy Coyne MD [address] [facility] [place] [address] PCP - General 01/28/23 documented as of this encounter
--- OUTSIDE RECORDS SUMMARY | 2024-11-07 14:02 | XMS_ITS | Encounter Summary ---
Author Organization Healthcare Address [address] [place] [address] Care Team Providers Care Food Service Helper Name Role Phone Anatoliy Coyne MD Primary Care Provider Encounter Details Date Type Department Care Team ([facility] st Contact Info) Description 03/25/2023 Orders Only External Location [address] [place] [address] Provider, External Social History Tobacco Use Types [...] documented as of this encounter Care Teams Food Service Helper Relationship Specialty Start Date End Date Anatoliy Coyne MD [address] [place] [address] PCP - General 01/28/23 documented as of this encounter
--- OUTSIDE RECORDS SUMMARY | 2024-11-07 14:02 | XMS_ITS | Encounter Summary ---
Author Organization Healthcare Address [address] [place] [address] Care Team Providers Care Moderate Needs Teacher Name Role Phone Anatoliy Coyne MD Primary Care Provider [phone] Encounter Details Date Type Department Care Team ([facility] st Contact Info) Description 04/13/2023 Orders Only External Location [address] [place] [address] Provider, External Social History Tobacco Use Types [...] documented as of this encounter Care Teams Moderate Needs Teacher Relationship Specialty Start Date End Date Anatoliy Coyne MD [address] [place] [address] PCP - General 01/28/23 documented as of this encounter
--- OUTSIDE RECORDS SUMMARY | 2024-11-07 14:02 | XMS_ITS | Encounter Summary ---
Author Organization Healthcare Address [address] [place] [address] Care Team Providers Care Maintenance Mechanic Name Role Phone Ewa Sandy APRN Primary Care Provider [phone] Anatoliy Coyne MD Primary Care Provider [phone] Encounter Details Date Type Department Care Team (Late st Contact Info) Description 06/18/2022 Orders Only External Location [address] [place] [address] Anatoliy Coyne MD [address] [place] [address] Social History Tobacco Use Types Packs/Day Years [...] on filedocumented in this encounter Care Teams Maintenance Mechanic Relationship Specialty Start Date End Date Ewa Sandy APRN [address] [place] [address] PCP - General 08/08/20 01/27/23 Anatoliy Coyne MD [address] [place] [address] [place] [address] PCP - General 01/28/23 documented as of this encounter
--- OUTSIDE RECORDS SUMMARY | 2024-11-07 14:02 | XMS_ITS | Encounter Summary ---
Author Organization Healthcare Address [address] [place] [address] Care Team Providers Care Credentialing Manager Name Role Phone Ewa Sandy APRN Primary Care Provider + [phone] Anatoliy Coyne MD Primary Care Provider + [phone] Encounter Details Date Type Department Care Team (Late st Contact Info) Description 12/30/2022 Orders Only External Location [address] [place] [address] Provider, External Social History Tobacco Use Types [...] on filedocumented in this encounter Care Teams Credentialing Manager Relationship Specialty Start Date End Date Ewa Sandy APRN [address] [place] [address] PCP - General 08/08/20 01/27/23 Anatoliy Coyne MD [address] [facility] [place] [address] PCP - General 01/28/23 documented as of this encounter
--- OUTSIDE RECORDS SUMMARY | 2024-11-07 14:02 | XMS_ITS | Encounter Summary ---
Author Organization Healthcare Address [address] [place] [address] Care Team Providers Care Health Insurance Assessor Name Role Phone Ewa Sandy APRN Primary Care Provider + [phone] Anatoliy Coyne MD Primary Care Provider + [phone] Encounter Details Date Type Department Care Team (Late st Contact Info) Description 09/13/2018 Orders Only External Location [address] [place] [address] Provider, External Social History Tobacco Use Types [...] on filedocumented in this encounter Care Teams Health Insurance Assessor Relationship Specialty Start Date End Date Ewa Sandy APRN [address] [place] [address] PCP - General 08/08/20 01/27/23 Anatoliy Coyne MD [address] [facility] [place] [address] PCP - General 01/28/23 documented as of this encounter
[2024-11-07 14:27] VITALS: BP 123/91; BP 166/90; PULSE 105; RESP 14; O2SAT 96; BMI 39.0
--- NOTE | 2024-11-07 14:49 | A.OFFVIS_ITS ---
[facility] Disclaimer: The information contained in this section may have been updated after the patient was seen, as this information can be updated by other users. Medical History (Updated 10/30/24 @ 15:58 by Donnell Luis APRN) Inverted papilloma of nasal cavity Nerve compression Carpal tunnel syndrome Bursitis Arthritis Bulging disc History of diverticulitis Perforated nasal septum Inverted papilloma of lateral nasal wall Hypogonadism in male Chronic pain Pulmonary HTN Sinus problem Surgical History Hx of tonsillectomy History of surgery History of hip surgery Hx of splenectomy Hx of hernia repair History of cholecystectomy H/O arthroscopy Family History Other Family history of hyperlipidemia Family history of hypertension Social History Smoking Status: Current every day smoker tobacco type: cigarettes packs per day: 1 pack-years: 20 second hand exposure: Yes alcohol intake: current alcohol intake frequency: a few times a week substance use type: denies use current occupational status: other Travel in the last 8 weeks?: None housing: house 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 He rates it a 6 out of 10. He denies any new trauma or injury. He does state that he is still having that same pain that does radiate down primarily into the right lower extremity but does also go down the left. He states that it is interfering with his ability perform activities of daily living such as cooking and cleaning. Patient would like to see about getting scheduled for an injection as it has been several months. Patient had tried to be submitted for a spinal cord stimulator trial however his insurance denied this option. Patient does feel very limited due to still having that chronic pain. Patient does also make mention that recently he has primary care has made adjustments to his pain medications and he is not getting the same amount of tablets as he was previously and this is also worsening his pain. Patient has continued conservative therapy. His Jose has been reviewed and is appropriate. Review of Systems: General: No recent weight changes, no fever, no sleep disturbances Respiratory: No cough, no shortness of air, no recurring pulmonary infections Cardiovascular/peripheral vascular: No chest pain, no palpitations, no edema, no shortness of breath Gastrointestinal: No new onset incontinence, normal bowel movements reported Genitourinary: No new onset incontinence Musculoskeletal: Low back pain, bilateral leg pain Psychiatric: [Normal mood/affect] Neurological: [Denies weakness in extremities], [denies balance issues] Pain at rest (0-10 scale): 6 Objective Objective:: Physical Exam: General: Alert and oriented x3, no acute distress, pleasant and cooperative Lungs: Respirations even and unlabored, symmetrical chest expansion Eyes: PERRL Musculoskeletal: Flexion and extension of lumbar [spine] somewhat guarded secondary to pain, [antalgic gait noted] positive leg raise Neurological: Speech clear, no gross sensory deficit Has patient had previous pain injection?: No Conservative treatment options previously tried: Home exercise plan Length of treatment: Longer than 12 weeks Meds Home Medications and Allergies Home Medications ?Medication ?Instructions ?Recorded ?Confirmed ?Type sildenafil (pulm.hypertension) 20 20 mg PO DAILY PRN s exual activity 05/20/21 11/07/24 Rx mg tablet #40 tabs testosterone cypionate 200 mg/mL 200 mg IM Q6 Suppleme nt 01/12/22 11/07/24 History intramuscular oil amitriptyline 25 mg tablet 25 mg PO DAILY 90 days #90 tabs 06/28/23 11/07/24 Rx nicotine 21 mg/24 hr daily 1 patch transdermal DAILY S MOKING 06/28/23 11/07/24 History transdermal patch CESSATION mupirocin 2 % topical ointment 1 applic topical TID #5 0 grams 02/15/24 11/07/24 Rx omega 3-dha 120 mg-epa 180 mg-fish 1 cap PO BID 30 day s #60 caps 04/11/24 11/07/24 Rx oil 600 mg capsule (Extreme Stevenson-3) hydrocortisone 2.5 % topical cream 1 applic topical TI D PRN skin 05/23/24 11/07/24 Rx lesion #30 grams fexofenadine 180 mg tablet See Rx Instructions .Route 06/26/24 11/07/24 Rx (Allergy Relief (fexofenadine)) .COMPLEX #60 tabs lisinopril 40 mg tablet See Rx Instructions .Route 0 10/05/24 11/07/24 Rx .COMPLEX 90 days #180 tabs famotidine 40 mg tablet 40 mg PO HS #30 tabs 10/16/2 5 11/07/24 Rx fluticasone propionate 50 1 spray intranasal BID #16 g tammie 10/16/24 11/07/24 Rx mcg/actuation nasal spray,suspension (Flonase Allergy Relief) omeprazole 40 mg capsule,delayed 40 mg PO DAILY #30 ca ps 10/16/24 11/07/24 Rx release clobetasol 0.05 % topical ointment 1 applic topical BI D #30 grams 10/30/24 11/07/24 Rx gabapentin 800 mg tablet See Rx Instructions .Route 0 10/30/24 11/07/24 Rx .COMPLEX #90 tabs hydrochlorothiazide 25 mg tablet 25 mg PO DAILY #90 ta bs 10/30/24 11/07/24 Rx hydrocodone 7.5 mg-acetaminophen 1 tab PO Q8H PRN pain 30 days #90 10/30/24 11/07/24 Rx 325 mg tablet tabs prednisone 10 mg tablet 10 mg PO DIRECTED #30 tab s 10/30/24 11/07/24 Rx New Prescriptions to Start Prescriptions: Allergies Allergy/AdvReac Type Severity Reaction Status Date / Time No Known Allergies Allergy Verified 10/30/24 13:05 Assessment and Plan *Assessment and plan (1) Lumbar radiculopathy: Status: Acute Category: Medical Code(s): M54.16 - Radiculopathy, lumbar region (2) Bilateral sacroiliitis: Status: Acute Category: Medical Code(s): M46.1 - Sacroiliitis, not elsewhere classified (3) Degenerative disc disease, lumbar: Status: Acute Category: Medical Code(s): M51.369 - Other intervertebral disc degeneration, lumbar region without mention of lumbar back pain or lower extremity pain Plan Patient is experiencing worsening pain in his low back with numbness and tingling into his lower extremities. Patient did have limited range of motion of his lumbar spine with a positive leg raise. I did discuss with patient that I do believe they would benefit from a lumbar epidural steroid injection. Risk and benefits were discussed with patient and the patient would like to proceed forward with this plan of care. Patient is not on any blood thinners. Patient has tried and failed conservative therapy including oral medications, heat and ice, topicals and continued at home stretching exercise for longer than 12 weeks between injections. Patient has had chronic back pain for longer than 6 months. Patient did previously have a lumbar epidural back in April that provided 50% relief and lasted longer than 3 months. He does state that these have been very beneficial but do vary on how long they typically will last or how much improvement. He does state that they do really make a big difference however and he would like to be scheduled. We will schedule the patient for an LESI L4- L5 under fluoroscopy. Patient has been instructed to contact the clinic with any concerns before the next appointment. Dr. Payne has reviewed this note and agrees with this plan of care. This note was dictated using voice recognition software and make contain errors or omissions. All injections are used with Lidocaine, Bupivacaine and dexamethasone. Occasionally urine drug screen is needed to verify patient's compliance with our office pain contract. This is ordered based off specific treatments related to chronic pain with the potential to abuse certain medications.
== END 2024-11-07 23:59 | disposition home or self-care (01) ==
LOC: SC.PAIN 13:50
PROVIDERS: PCP Nurse Practitioner Family; Visit Provider Nurse Practitioner Family
DX: M51.360 Other intervertebral disc degeneration, lumbar region with discogenic back pain only (principal)
CPT/HCPCS: 99212; G0463

== ENCOUNTER 2024-11-14 14:12 | Outpatient (CLI) | payer MEDICARE, MEDICAID, SELFPAY ==
--- NOTE | 2024-11-14 14:18 | PC.NURSE ---
1418-collected labs via venipuncture stick in right ac with butterfly needle;pt to need therapeutic phlebotomy if hct >50
--- OUTSIDE RECORDS SUMMARY | 2024-11-14 14:18 | XMS_ITS | Encounter Summary ---
Author Organization Healthcare Address [address] [place] [address] Care Team Providers Care Cafeteria Assistant Name Role Phone Ewa Sandy APRN Primary Care Provider + [phone] Anatoliy Coyne MD Primary Care Provider + [phone] Encounter Details Date Type Department Care Team (Late st Contact Info) Description 09/13/2018 Orders Only External Location [address] [place] [address] Provider, External Social History Tobacco Use Types [...] on filedocumented in this encounter Care Teams Cafeteria Assistant Relationship Specialty Start Date End Date Ewa Sandy APRN [address] [place] [address] PCP - General 08/08/20 01/27/23 Anatoliy Coyne MD 2 [facility] [place] [address] PCP - General 01/28/23 documented as of this encounter
--- OUTSIDE RECORDS SUMMARY | 2024-11-14 14:18 | XMS_ITS | Encounter Summary ---
Author Organization Healthcare Address [address] [place] [address] Care Team Providers Care Corrosion Technician Name Role Phone Anatoliy Coyne MD Primary Care Provider [phone] Encounter Details Date Type Department Care Team ([facility] st Contact Info) Description 04/13/2023 Orders Only External Location [address] [place] [address] Provider, External Social History Tobacco Use Types [...] documented as of this encounter Care Teams Corrosion Technician Relationship Specialty Start Date End Date Anatoliy Coyne MD [address] [place] [address] PCP - General 01/28/23 documented as of this encounter
--- OUTSIDE RECORDS SUMMARY | 2024-11-14 14:18 | XMS_ITS | Encounter Summary ---
Author Organization Healthcare Address [address] [place] [address] Care Team Providers Care Double Cutter Name Role Phone Ewa Sandy APRN Primary Care Provider + [phone] Anatoliy Coyne MD Primary Care Provider + [phone] Encounter Details Date Type Department Care Team (Late st Contact Info) Description 09/13/2018 Orders Only External Location [address] [place] [address] Provider, External Social History Tobacco Use Types [...] on filedocumented in this encounter Care Teams Double Cutter Relationship Specialty Start Date End Date Ewa Sandy APRN [address] [place] [address] PCP - General 08/08/20 01/27/23 Anatoliy Coyne MD 0 [facility] [place] [address] PCP - General 01/28/23 documented as of this encounter
--- OUTSIDE RECORDS SUMMARY | 2024-11-14 14:18 | XMS_ITS | Clinical Summary ---
Author Organization [facility] Address [address] [place] [address] Care Team Providers Care Commissary Production Supervisor Name Role Phone Anatoliy Coyne MD Primary Care Provider [phone] Allergies No known active allergies Medications amLODIPine (Norvasc) 5 MG tablet Take by mouth every night. Active HYDROcodone-ac etaminophen ([place]) 7.5-325 MG tablet Take by mouth 2 [...] each day. 3 Active HM Saline Nasal [place] 0.65 % nasal spray Administer into each [...] 11/10/2016 Sigmoidoscopy 11/10/2016 UKY-Colorectal Cancer Screening 11/10/2016 [id number]-30 Vaccine (3 - Moderna risk series) 01/23/2021 [...] Narrative 09/09/2018 3:35 AM EDT REQUESTING PHYSICIAN: YOVSANY BACA REASON FOR EXAMINATION/PROCEDURE: RAD PDP:Y * [...] IMG CT PROCEDURES Final Re sult * Nursery Hepatitis C Antibody (09/09/2018 12:31 AM EDT) Nursery Hepatitis C Ab NEGATIVE Reference Range: Negative SUNQUEST 09/09/2018 12:3 1 AM EDT 09/09/2018 12:38 AM EDT Yosvany Baca MD LAB BLOOD ORDERABLES Final Result SUNQUEST from Last 3 Months or Most Recently Relevant to Health Maintenance Insurance AETNA [facility] MEDICAID Care Teams Commissary Production Supervisor Relationship Specialty Start Date End Date Anatoliy Coyne MD [address] [id number] PCP - General 01/28/23
--- OUTSIDE RECORDS SUMMARY | 2024-11-14 14:18 | XMS_ITS | Encounter Summary ---
Author Organization Healthcare Address [address] [place] [address] Care Team Providers Care Instrument Mechanic Name Role Phone Ewa Sandy APRN Primary Care Provider + [phone] Anatoliy Coyne MD Primary Care Provider + [phone] Encounter Details Date Type Department Care Team (Late st Contact Info) Description 09/13/2018 Orders Only External Location [address] [place] [address] Provider, External Social History Tobacco Use Types [...] on filedocumented in this encounter Care Teams Instrument Mechanic Relationship Specialty Start Date End Date Ewa Sandy APRN [address] [place] [address] PCP - General 08/08/20 01/27/23 Anatoliy Coyne MD 1 [facility] [place] [address] PCP - General 01/28/23 documented as of this encounter
--- OUTSIDE RECORDS SUMMARY | 2024-11-14 14:18 | XMS_ITS | Encounter Summary ---
Author Organization Healthcare Address [address] [place] [address] Care Team Providers Care Assistant Cross Country Coach Name Role Phone Anatoliy Coyne MD Primary Care Provider [phone] Encounter Details Date Type Department Care Team ([facility] st Contact Info) Description 03/25/2023 Orders Only External Location [address] [place] [address] Provider, External Social History Tobacco Use Types [...] documented as of this encounter Care Teams Assistant Cross Country Coach Relationship Specialty Start Date End Date Anatoliy Coyne MD [address] [place] [address] PCP - General 01/28/23 documented as of this encounter
--- OUTSIDE RECORDS SUMMARY | 2024-11-14 14:18 | XMS_ITS | Clinical Summary ---
Author Organization [facility] Address [address] [place] [address] Care Team Providers Care Tile Designer Name Role Phone Jacques Maher DO Primary Care Provider [phone] Allergies No known active allergies Medications ondansetron [...] or training? Not on file Preferred Language Chinese 07/14/2023 Sex and Gender Information Value Date [...] 09/09/2028 019 Medical Devices Implanted Type Area Golf Club Assembler Device Identifier Shelf Expiration Date Model / Serial / Lot Sys Sut/Anch Biocomp Speedbridge 4.85 12.5 - [id number] Implanted:Qty: 1 on 07/22/2023 by Humberto Mohan MD at [facility] Implant Left: Shoulder ARTHREX 04/27/2027 [id number] 5 / / [id number] Insurance [facility] Care Teams Tile Designer Relationship Specialty Start Date End Date Jacques Maher DO [address] [place] [address] [place] [address] PCP - General Internal Medicine 07/14/23
--- OUTSIDE RECORDS SUMMARY | 2024-11-14 14:18 | XMS_ITS | Encounter Summary ---
Author Organization Healthcare Address [address] [place] [address] Care Team Providers Care Fruit Harvester Machine Operator Name Role Phone Ewa Sandy APRN Primary Care Provider + [phone] Anatoliy Coyne MD Primary Care Provider + [phone] Encounter Details Date Type Department Care Team (Late st Contact Info) Description 12/30/2022 Orders Only External Location [address] [place] [address] Provider, External Social History Tobacco Use Types [...] on filedocumented in this encounter Care Teams Fruit Harvester Machine Operator Relationship Specialty Start Date End Date Ewa Sandy APRN [address] [place] [address] PCP - General 08/08/20 01/27/23 Anatoliy Coyne MD 9 [facility] [place] [address] PCP - General 01/28/23 documented as of this encounter
--- OUTSIDE RECORDS SUMMARY | 2024-11-14 14:18 | XMS_ITS | Patient Health Record ---
Author Organization [facility] Address [address] [place] [address] Care Team Providers Care Maid Cleaning Cooking Name Role Phone YUMIKO PEREZ Primary Care [...] Status Risk Notes Problem Generalized anxiety disorder (93095507) Generalized anxiety disorder (300.02) 09/01/19 14 Active confirmed Silvestre-Bin Problem Dysthymia (66739637) Dysthymic disorder (300.4) 09/01/19 14 Active confirmed Silvestre-Bin Problem Essential hypertension (70566779) Unspecified essential hypertension (401.9) 09/01/19 14 Active confirmed Silvestre-Bin Problem Osteoarthritis (829214655) Osteoarthrosis, unspecified whether generalized or localized, other specified sites (715.98) 09/01/19 14 Active confirmed Silvestre-Bin Problem Tinea unguium (444048615) Tinea unguium (B35.1) 03/20/20 14 Active confirmed Silvestre-Bin Plan Of Treatment No Information Medical (General) History Surgical History Surgery Date(Month/Year) hernia repair
--- OUTSIDE RECORDS SUMMARY | 2024-11-14 14:18 | XMS_ITS | Encounter Summary ---
Author Organization Healthcare Address [address] [place] [address] Care Team Providers Care Lighthouse Keeper Name Role Phone Ewa Sandy APRN Primary Care Provider [phone] Anatoliy Coyne MD Primary Care Provider [phone] Encounter Details Date Type Department Care Team (Late st Contact Info) Description 06/18/2022 Orders Only External Location [address] [place] [address] Anatoliy Coyne MD [address] [place] [address] Social History Tobacco Use Types Packs/Day Years [...] on filedocumented in this encounter Care Teams Lighthouse Keeper Relationship Specialty Start Date End Date Ewa Sandy APRN [address] [place] [address] PCP - General 08/08/20 01/27/23 Anatoliy Coyne MD [address] [place] [address] [place] [address] PCP - General 01/28/23 documented as of this encounter
[2024-11-14 14:19] VITALS: BMI 38.2
[2024-11-14 14:29] LABS: Hematocrit 57.8 % (42.0-52.0)
[2024-11-14 14:56] LABS: Hemoglobin 19.2 g/dL (14.1-18.0)
[2024-11-14 15:00] VITALS: BP 178/89; PULSE 98; RESP 18; O2SAT 96
[2024-11-14 15:35] VITALS: BP 138/79; PULSE 89; RESP 18; O2SAT 98
== END 2024-11-14 15:35 | disposition home or self-care (01) ==
LOC: INF 14:14
PROVIDERS: PCP Nurse Practitioner Family; Visit Provider Urology
DX: D75.1 Secondary polycythemia (principal)
CPT/HCPCS: 36415; 85014; 85018; 99195

== ENCOUNTER 2024-12-05 12:49 | Outpatient (CLI) | payer MEDICARE, MEDICAID, SELFPAY ==
--- OUTSIDE RECORDS SUMMARY | 2024-12-05 12:52 | XMS_ITS | Clinical Summary ---
Author Organization [facility] Address [address] [place] [address] Care Team Providers Care Continuous Process Tanner Rotary Drum Name Role Phone Anatoliy Coyne MD Primary Care Provider [phone] Allergies No known active allergies Medications amLODIPine (Norvasc) 5 MG tablet Take by mouth every night. Active HYDROcodone-ac etaminophen ([place]) 7.5-325 MG tablet Take by mouth 2 [...] each day. 3 Active HM Saline Nasal [place] 0.65 % nasal spray Administer into each [...] 11/10/2016 Sigmoidoscopy 11/10/2016 [facility]Y-Colorectal Cancer Screening 11/10/2016 [id number]-18 Vaccine (3 - Moderna risk series) 01/23/2021 [...] Sep 09 2018 2:11A Procedure Note Tonny Bisaws - 07/21/2020 REQUESTING PHYSICIAN: YOSVANY BACA REASON [...] COMMUNICATION: These findings were discussed with Stephan Lauern on 09/09/2018 3:11 AM by Andrés Moser [...] IMG CT PROCEDURES Final Re sult * [place] Hepatitis C Antibody (09/09/2018 12:31 AM EDT) [place] Hepatitis C Ab NEGATIVE Reference Range: Negative SUNQUEST 09/09/2018 12:3 1 AM EDT 09/09/2018 12:38 AM EDT Yosvany Baca MD LAB BLOOD ORDERABLES Final Result SUNQUEST from Last 3 Months or Most Recently Relevant to Health Maintenance Insurance AETNA [facility] MEDICAID Care Teams Continuous Process Tanner Rotary Drum Relationship Specialty Start Date End Date Anatoliy Coyne MD [address] [id number] PCP - General 01/28/23
--- OUTSIDE RECORDS SUMMARY | 2024-12-05 12:52 | XMS_ITS | Encounter Summary ---
Author Organization Healthcare Address [address] [place] [address] Care Team Providers Care Manager Dialysis Name Role Phone Ewa Sandy APRN Primary Care Provider + [phone] Anatoliy Coyne MD Primary Care Provider + [phone] Encounter Details Date Type Department Care Team (Late st Contact Info) Description 12/30/2022 Orders Only External Location [address] [place] [address] Provider, External Social History Tobacco Use Types [...] on filedocumented in this encounter Care Teams Manager Dialysis Relationship Specialty Start Date End Date Ewa Sandy APRN [address] [place] [address] PCP - General 08/08/20 01/27/23 Anatoliy Coyne MD 9 [facility] [place] [address] PCP - General 01/28/23 documented as of this encounter
--- OUTSIDE RECORDS SUMMARY | 2024-12-05 12:52 | XMS_ITS | Encounter Summary ---
Author Organization Healthcare Address [address] [place] [address] Care Team Providers Care Marriage And Family Social Worker Name Role Phone Anatoliy Coyne MD Primary Care Provider [phone] Encounter Details Date Type Department Care Team ([facility] st Contact Info) Description 04/13/2023 Orders Only External Location [address] [place] [address] Provider, External Social History Tobacco Use Types [...] documented as of this encounter Care Teams Marriage And Family Social Worker Relationship Specialty Start Date End Date Anatoliy Coyne MD [address] [place] [address] PCP - General 01/28/23 documented as of this encounter
--- OUTSIDE RECORDS SUMMARY | 2024-12-05 12:52 | XMS_ITS | Encounter Summary ---
Author Organization Healthcare Address [address] [place] [address] Care Team Providers Care Dressmaker Helper Name Role Phone Ewa Sandy APRN Primary Care Provider + [phone] Anatoliy Coyen MD Primary Care Provider + [phone] Encounter Details Date Type Department Care Team (Late st Contact Info) Description 09/13/2018 Orders Only External Location [address] [place] [address] Provider, External Social History Tobacco Use Types [...] on filedocumented in this encounter Care Teams Dressmaker Helper Relationship Specialty Start Date End Date Ewa Sandy APRN [address] [place] [address] PCP - General 08/08/20 01/27/23 Anatoliy Coyne MD 0 [facility] [place] [address] PCP - General 01/28/23 documented as of this encounter
--- OUTSIDE RECORDS SUMMARY | 2024-12-05 12:52 | XMS_ITS | Patient Health Record ---
Author Organization [facility] Address [address] [place] [address] Care Team Providers Care Change Management Facilitator Name Role Phone YUMIKO PEREZ Primary Care [...] Status Risk Notes Problem Generalized anxiety disorder (04540488) Generalized anxiety disorder (300.02) 09/01/19 14 Active confirmed Silvestre-Bin Problem Dysthymia (73527683) Dysthymic disorder (300.4) 09/01/19 14 Active confirmed Silvestre-Bin Problem Essential hypertension (73697375) Unspecified essential hypertension (401.9) 09/01/19 14 Active confirmed Silvestre-Bin Problem Osteoarthritis (187276972) Osteoarthrosis, unspecified whether generalized or localized, other specified sites (715.98) 09/01/19 14 Active confirmed Silvestre-Bin Problem Tinea unguium (745983120) Tinea unguium (B35.1) 03/20/20 14 Active confirmed Silvestre-Bin Plan Of Treatment No Information Medical (General) History Surgical History Surgery Date(Month/Year) hernia repair
--- OUTSIDE RECORDS SUMMARY | 2024-12-05 12:52 | XMS_ITS | Encounter Summary ---
Author Organization Healthcare Address [address] [place] [address] Care Team Providers Care Coin Machine Servicer Repairer Name Role Phone Ewa Sandy APRN Primary Care Provider [phone] Anatoliy Coyne MD Primary Care Provider [phone] Encounter Details Date Type Department Care Team (Late st Contact Info) Description 06/18/2022 Orders Only External Location [address] [place] [address] Anatoliy Coyne MD [address] [place], [place] [id number] Social History Tobacco Use Types Packs/Day Years [...] on filedocumented in this encounter Care Teams Coin Machine Servicer Repairer Relationship Specialty Start Date End Date Ewa Sandy APRN [address] [place] [address] PCP - General 08/08/20 01/27/23 Anatoliy Coyne MD [address] [place] [address] [place] [address] PCP - General 01/28/23 documented as of this encounter
--- OUTSIDE RECORDS SUMMARY | 2024-12-05 12:52 | XMS_ITS | Encounter Summary ---
Author Organization Healthcare Address [address] [place] [address] Care Team Providers Care Crime Scene Investigator Name Role Phone Anatoliy Coyne MD Primary Care Provider [phone] Encounter Details Date Type Department Care Team ([facility] st Contact Info) Description 03/25/2023 Orders Only External Location [address] [place] [address] Provider, External Social History Tobacco Use Types [...] documented as of this encounter Care Teams Crime Scene Investigator Relationship Specialty Start Date End Date Anatoliy Coyne MD [address] [place] [address] PCP - General 01/28/23 documented as of this encounter
--- OUTSIDE RECORDS SUMMARY | 2024-12-05 12:52 | XMS_ITS | Encounter Summary ---
Author Organization Healthcare Address [address] [place] [address] Care Team Providers Care Dice Spotter Name Role Phone Ewa Sandy APRN Primary Care Provider + [phone] Anatoliy Coyne MD Primary Care Provider + [phone] Encounter Details Date Type Department Care Team (Late st Contact Info) Description 09/13/2018 Orders Only External Location [address] [place] [address] Provider, External Social History Tobacco Use Types [...] on filedocumented in this encounter Care Teams Dice Spotter Relationship Specialty Start Date End Date Ewa Sandy APRN [address] [place] [address] PCP - General 08/08/20 01/27/23 Anatoliy Coyne MD [facility] [place] [address] PCP - General 01/28/23 documented as of this encounter
--- OUTSIDE RECORDS SUMMARY | 2024-12-05 12:52 | XMS_ITS | Encounter Summary ---
Author Organization Healthcare Address [address] [place] [address] Care Team Providers Care Gauge And Weigh Machine Operator Name Role Phone Ewa Sandy APRN Primary Care Provider + [phone] Anatoliy Coyne MD Primary Care Provider + [phone] Encounter Details Date Type Department Care Team (Late st Contact Info) Description 09/13/2018 Orders Only External Location [address] [place] [address] Provider, External Social History Tobacco Use Types [...] on filedocumented in this encounter Care Teams Gauge And Weigh Machine Operator Relationship Specialty Start Date End Date Ewa Sandy APRN [address] [place] [address] PCP - General 08/08/20 01/27/23 Anatoliy Coyne MD 8 [facility] [place] [address] PCP - General 01/28/23 documented as of this encounter
--- OUTSIDE RECORDS SUMMARY | 2024-12-05 12:52 | XMS_ITS | Clinical Summary ---
Author Organization [facility] Address [address] [place] [address] Care Team Providers Care Mechanical Engineering Technologist Name Role Phone Jacques Maher DO Primary Care Provider [phone] Allergies No known active allergies Medications ondansetron [...] or training? Not on file Preferred Language Kinyarwanda 07/14/2023 Sex and Gender Information Value Date [...] Comments COLOGUARD 11/10/2016 COLON CANCER SCREENING 5 EDAGRD Mae SIGMOIDOSCOPY 11/10/2016 COLONOSCOPY 11/10/2016 COLORECTAL CANCER SCREENING 11/10/2016 CT COLONOGRAPHY 11/10/2016 FECAL OCCULT BLOOD TEST 11/10/2016 FIT Testing (1 year) 11/10/2016 Pneumococcal Vaccine 50+ (2 of 2 - PPSV23) 11/10/2021 09/14/2018 ZOSTER VACCINE (1 of 2) 11/10/2021 ANNUAL PHYSICAL 07/14/2023 HEPATITIS C SCREENING 07/14/2023 COVID-19 Vaccine (3 - 2024- season) 11/26/202403/2020, 11/28/2020 INFLUENZA VACCINE 12/26/2024 TDAP/TD VACCINES (2 - Td or Tdap) 09/09/2028 019 Medical Devices Implanted Type Area Denitrator Operator Device Identifier Shelf Expiration Date Model / Serial / Lot Sys Sut/Anch Biocomp Speedbridge 4.85 12.5 - [id number] Implanted:Qty: 1 on 07/22/2023 by Humberto Mohan MD at [facility] Implant Left: Shoulder ARTHREX 04/27/2027 [id number] 5 / / [id number] Insurance [facility] [employer] Care Teams Mechanical Engineering Technologist Relationship Specialty Start Date End Date Jacques Maher DO [address] [place] [address] [place] [address] PCP - General Internal Medicine 07/14/23
--- NOTE | 2024-12-05 12:57 | PC.NURSE ---
1257-collected labs via venipuncture stick in left ac with butterfly needle;pt to wait on results for possible therapeutic phlebotomy to draw off 500ml for hct >50
[2024-12-05 13:03] LABS: Hematocrit 54.7 % (42.0-52.0)
[2024-12-05 13:21] LABS: Hemoglobin 18.4 g/dL (14.1-18.0)
[2024-12-05 13:35] VITALS: BP 169/95; PULSE 96; RESP 18; O2SAT 95
[2024-12-05 14:10] VITALS: BP 158/100; PULSE 96; RESP 18; O2SAT 95
== END 2024-12-05 14:10 | disposition home or self-care (01) ==
LOC: INF 12:50
PROVIDERS: PCP Nurse Practitioner Family; Visit Provider Urology
DX: R71.8 Other abnormality of red blood cells (principal)
CPT/HCPCS: 36415; 85014; 85018; 99195

== ENCOUNTER 2024-12-18 13:55 | Day surgery (SDC) | payer MEDICARE, MEDICAID, SELFPAY ==
[2024-12-18 14:03] VITALS: BP 152/93; PULSE 96; RESP 18; O2SAT 93; BMI 40.1
[2024-12-18] MEDS: DEXAMETHASONE 10MG/ML 1ML VIAL 10 MG (14:27)
[2024-12-18 14:35] VITALS: BP 172/95; PULSE 93; RESP 18; O2SAT 95
--- NOTE | 2024-12-18 14:36 | EXP.PAIN.PRO ---
Procedure Date: 12/18/24 Time: 13:30 Anesthesiologist:: Asad Chaves CRNA Complications:: None Pre-procedure Diagnosis:: Degenerative disc lumbar spine multilevels. Lumbar radiculopathy. Post-procedure Diagnosis:: . Same Indications for Procedure:: Patient is a pleasant 54-year-old male who comes our clinic today for lumbar epidural steroid injection. Patient describes low lumbar back pain as constant, dull, aching. He also reports bilateral hip and leg radicular symptoms. He rates his pain 7/10. Patient reports responding well to previous lumbar epidural steroid injections at same level. Procedure Details:: Procedure: Lumbar epidural steroid injection under fluoroscopy Informed consent was obtained and the risks and benefits of the procedure were explained to the patient. The patient was taken to the procedure room and noninvasive monitors placed, including noninvasive blood pressure cuff and pulse oximeter. The back was viewed using C-arm Fluoroscopy and prepped using Chloraprep as a cleansing solution and the L4-L5 interspace was palpated. Skin and subcutaneous tissues were anesthetized using lidocaine 1.5% and a 25-gauge needle. After this, an 18-gauge Touhy epidural needle was placed into the L4-L5 interspace and advanced using fluoroscopic guidance and loss of resistance to air until the epidural space was encountered. After confirmation of needle placement in the epidural space, with dye, a solution containing normal saline, 3 mL and dexamethasone 10 mg were incrementally injected into the lumbar epidural space. The patient tolerated the procedure well with no complications. The patient was observed in the Pain Clinic and then discharged home neurologically intact. Plan and Disposition:: Patient was discharged without incident.
[2024-12-18 14:40] VITALS: BP 156/95; PULSE 88; RESP 18; O2SAT 92
[2024-12-18 14:41] VITALS: BP 156/95; PULSE 88; RESP 18; O2SAT 92
== END 2024-12-18 14:35 | disposition home or self-care (01) ==
PROVIDERS: PCP Nurse Practitioner Family; Visit Provider Nurse Anesthetist, Certified Registered
DX: M51.16 Intervertebral disc disorders with radiculopathy, lumbar region (principal); K21.9 Gastro-esophageal reflux disease without esophagitis; I10 Essential (primary) hypertension; E29.1 Testicular hypofunction; I27.20 Pulmonary hypertension, unspecified; F17.210 Nicotine dependence, cigarettes, uncomplicated; M16.9 Osteoarthritis of hip, unspecified; Z79.52 Long term (current) use of systemic steroids; Z79.899 Other long term (current) drug therapy
CPT/HCPCS: 62323; J1100

== ENCOUNTER 2024-12-20 12:05 | Outpatient (CLI) | payer MEDICARE, MEDICAID, SELFPAY ==
--- OUTSIDE RECORDS SUMMARY | 2024-12-20 12:07 | XMS_ITS | Encounter Summary ---
Author Organization Healthcare Address [address] [place] [address] Care Team Providers Care Location Manager Name Role Phone Ewa Sandy APRN Primary Care Provider + [phone] Anatoliy Coyne MD Primary Care Provider + [phone] Encounter Details Date Type Department Care Team (Late st Contact Info) Description 09/13/2018 Orders Only External Location [address] [place] [address] Provider, External Social History Tobacco Use Types [...] on filedocumented in this encounter Care Teams Location Manager Relationship Specialty Start Date End Date Ewa Sandy APRN [address] [place] [address] PCP - General 08/08/20 01/27/23 Anatoliy Coyne MD 0 [facility] [place] [address] PCP - General 01/28/23 documented as of this encounter
--- OUTSIDE RECORDS SUMMARY | 2024-12-20 12:07 | XMS_ITS | Clinical Summary ---
Author Organization [facility] Address [address] [place] [address] Care Team Providers Care Central Office Equipment Engineer Name Role Phone Anatoliy Coyne MD Primary Care Provider [phone] Allergies No known active allergies Medications amLODIPine (Norvasc) 5 MG tablet Take by mouth every night. Active HYDROcodone-ac etaminophen ([place]) 7.5-325 MG tablet Take by mouth 2 [...] each day. 3 Active HM Saline Nasal [place] 0.65 % nasal spray Administer into each [...] 11/10/2016 Sigmoidoscopy 11/10/2016 UKY-Colorectal Cancer Screening 11/10/2016 [id number]-07 Vaccine (3 - Moderna risk series) 01/23/2021 12/26/2020, 11/28/2020 UKY-Pneumococcal Vaccine: 50+ Years (2 of 2 - PCV20 or PCV21) 11/10/2021 09/14/2018 UKY-Depression Screening 02/15/2024 02/14/2023 UKY-Influenza [...] IMG CT PROCEDURES Final Re sult * [place] Hepatitis C Antibody (09/09/2018 12:31 AM EDT) [place] Hepatitis C Ab NEGATIVE Reference Range: Negative SUNQUEST 09/09/2018 12:3 1 AM EDT 09/09/2018 12:38 AM EDT Yosvany Baca MD LAB BLOOD ORDERABLES Final Result SUNQUEST from Last 3 Months or Most Recently Relevant to Health Maintenance Insurance AETNA [facility] MEDICAID Care Teams Central Office Equipment Engineer Relationship Specialty Start Date End Date Anatoliy Coyne MD [address] [place] [address] PCP - General 01/28/23
--- OUTSIDE RECORDS SUMMARY | 2024-12-20 12:07 | XMS_ITS | Clinical Summary ---
Author Organization [facility] Address [address] [place] [address] Care Team Providers Care Legal Activity Adjudicator Name Role Phone Jacques Maher DO Primary Care Provider [phone] Allergies No known active allergies Medications ondansetron [...] or training? Not on file Preferred Language Kiswahili 07/14/2023 Sex and Gender Information Value Date [...] Comments COLOGUARD 11/10/2016 COLON CANCER SCREENING 5 YEAR SIGMOIDOSCOPY 11/10/2016 COLONOSCOPY 11/10/2016 COLORECTAL CANCER SCREENING 11/10/2016 CT COLONOGRAPHY 11/10/2016 FECAL OCCULT BLOOD TEST 11/10/2016 FIT Testing (1 year) 11/10/2016 Pneumococcal Vaccine 50+ (2 of 2 - PPSV23) 11/10/2021 09/14/2018 ZOSTER VACCINE (1 of 2) 11/10/2021 ANNUAL PHYSICAL 07/14/2023 HEPATITIS C SCREENING 07/14/2023 INFLUENZA VACCINE 10/26/2024 TDAP/TD VACCINES (2 - Td or Tdap) 09/09/2028 019 Medical Devices Implanted Type Area Billing Clinician Device Identifier Shelf Expiration Date Model / Serial / Lot Sys Sut/Anch Biocomp Speedbridge 4.85 12.5 - [id number] Implanted:Qty: 1 on 07/22/2023 by Humberto Mohan MD at [facility] Implant Left: Shoulder AR[employer] 04/27/2027 [id number] Insurance [facility] Care Teams Legal Activity Adjudicator Relationship Specialty Start Date End Date Jacques Maher DO [address] [place] [address] PCP - General Internal Medicine 07/14/23
--- OUTSIDE RECORDS SUMMARY | 2024-12-20 12:07 | XMS_ITS | Encounter Summary ---
Author Organization Healthcare Address [address] [place] [address] Care Team Providers Care Chili Maker Name Role Phone Ewa Sandy APRN Primary Care Provider [phone] Anatolyi Coyne MD Primary Care Provider [phone] Encounter Details Date Type Department Care Team (Late st Contact Info) Description 06/18/2022 Orders Only External Location [address] [place] [address] Anatoliy Coyne MD [address] [place], [place] [id number] Social History Tobacco Use Types Packs/Day Years [...] on filedocumented in this encounter Care Teams Chili Maker Relationship Specialty Start Date End Date Ewa Sandy APRN [address] [place] [address] PCP - General 08/08/20 01/27/23 Anatoliy Coyne MD [address] [place] [address] [place] [address] PCP - General 01/28/23 documented as of this encounter
--- NOTE | 2024-12-20 12:08 | XR_ITS ---
FINAL REPORT CLINICAL HISTORY: Low back pain COMPARISON: None FINDINGS: AP, lateral, and oblique views of the lumbar spine were obtained. There is no acute fracture or acute malalignment. There are mild chronic compression deformities involving the T12 and L1 vertebral bodies. Mild degenerative disc disease is present, most pronounced at the L5-S1 level. No acute paraspinal abnormality is identified. IMPRESSION: Degenerative changes as described, with no acute osseous abnormalities lumbar spine. Reviewed, Interpreted and Dictated by Lulú Castro MD Transcribed by Brianna Webster Authenticated and [facility]
--- OUTSIDE RECORDS SUMMARY | 2024-12-20 12:08 | XMS_ITS | Encounter Summary ---
Author Organization Healthcare Address [address] [place] [address] Care Team Providers Care Welder/Fitter Name Role Phone Ewa Sandy APRN Primary Care Provider + [phone] Anatoliy Coyne MD Primary Care Provider + [phone] Encounter Details Date Type Department Care Team (Late st Contact Info) Description 12/30/2022 Orders Only External Location [address] [place] [address] Provider, External Social History Tobacco Use Types [...] on filedocumented in this encounter Care Teams Welder/Fitter Relationship Specialty Start Date End Date Ewa Sandy APRN [address] [place] [address] PCP - General 08/08/20 01/27/23 Anatoliy Coyne MD [address] [facility] [place] [address] PCP - General 01/28/23 documented as of this encounter
--- OUTSIDE RECORDS SUMMARY | 2024-12-20 12:08 | XMS_ITS | Encounter Summary ---
Author Organization Healthcare Address [address] [place] [address] Care Team Providers Care Photo Cartographer Name Role Phone Ewa Sandy APRN Primary Care Provider + [phone] Anatoliy Coyne MD Primary Care Provider + [phone] Encounter Details Date Type Department Care Team (Late st Contact Info) Description 09/13/2018 Orders Only External Location [address] [place] [address] Provider, External Social History Tobacco Use Types [...] on filedocumented in this encounter Care Teams Photo Cartographer Relationship Specialty Start Date End Date Ewa Sandy APRN [address] [place] [address] PCP - General 08/08/20 01/27/23 Anatoliy Coyne MD [address] [facility] [place] [address] PCP - General 01/28/23 documented as of this encounter
--- OUTSIDE RECORDS SUMMARY | 2024-12-20 12:08 | XMS_ITS | Encounter Summary ---
Author Organization Healthcare Address [address] [place] [address] Care Team Providers Care Campaign Analyst Name Role Phone Anatoliy Coyne MD Primary Care Provider [phone] Encounter Details Date Type Department Care Team ([facility] st Contact Info) Description 03/25/2023 Orders Only External Location [address] [place] [address] Provider, External Social History Tobacco Use Types [...] documented as of this encounter Care Teams Campaign Analyst Relationship Specialty Start Date End Date Anatoliy Coyne MD [address] [place] [address] PCP - General 01/28/23 documented as of this encounter
--- OUTSIDE RECORDS SUMMARY | 2024-12-20 12:08 | XMS_ITS | Encounter Summary ---
Author Organization Healthcare Address [address] [place] [address] Care Team Providers Care Belt Glass Sander Name Role Phone Ewa Sandy APRN Primary Care Provider + [phone] Anatoliy Coyne MD Primary Care Provider + [phone] Encounter Details Date Type Department Care Team (Late st Contact Info) Description 09/13/2018 Orders Only External Location [address] [place] [address] Provider, External Social History Tobacco Use Types [...] on filedocumented in this encounter Care Teams Belt Glass Sander Relationship Specialty Start Date End Date Ewa Sandy APRN [address] [place] [address] PCP - General 08/08/20 01/27/23 Anatoliy Coyne MD [address] [facility] [place] [address] PCP - General 01/28/23 documented as of this encounter
--- OUTSIDE RECORDS SUMMARY | 2024-12-20 12:08 | XMS_ITS | Encounter Summary ---
Author Organization Healthcare Address [address] [place] [address] Care Team Providers Care Director Of Events Name Role Phone Anatoliy Coyne MD Primary Care Provider [phone] Encounter Details Date Type Department Care Team ([facility] st Contact Info) Description 04/13/2023 Orders Only External Location [address] [place] [address] Provider, External Social History Tobacco Use Types [...] documented as of this encounter Care Teams Director Of Events Relationship Specialty Start Date End Date Anatoliy Coyne MD [address] [place] [address] PCP - General 01/28/23 documented as of this encounter
--- OUTSIDE RECORDS SUMMARY | 2024-12-20 12:08 | XMS_ITS | Patient Health Record ---
Author Organization [facility] Address [address] [place] [address] Care Team Providers Care Commercial Director Name Role Phone YUMIKO PEREZ Primary Care [...] Status Risk Notes Problem Generalized anxiety disorder (10508790) Generalized anxiety disorder (300.02) 09/01/19 14 Active confirmed Silvestre-Bin Problem Dysthymia (36671525) Dysthymic disorder (300.4) 09/01/19 14 Active confirmed Silvestre-Bin Problem Essential hypertension (08230377) Unspecified essential hypertension (401.9) 09/01/19 14 Active confirmed Silvestre-Bin Problem Osteoarthritis (263497123) Osteoarthrosis, unspecified whether generalized or localized, other specified sites (715.98) 09/01/19 14 Active confirmed Silvestre-Bin Problem Tinea unguium (672778371) Tinea unguium (B35.1) 03/20/20 14 Active confirmed Silvestre-Bin Plan Of Treatment No Information Medical (General) History Surgical History Surgery Date(Month/Year) hernia repair
== END 2024-12-20 23:59 | disposition home or self-care (01) ==
LOC: RAD 12:06
PROVIDERS: PCP Nurse Practitioner Family; Visit Provider Nurse Practitioner Family
DX: M47.26 Other spondylosis with radiculopathy, lumbar region (principal); M48.061 Spinal stenosis, lumbar region without neurogenic claudication
CPT/HCPCS: 72110

== ENCOUNTER 2024-12-27 13:37 | Outpatient (CLI) | payer MEDICARE, MEDICAID, SELFPAY ==
--- OUTSIDE RECORDS SUMMARY | 2024-12-27 13:40 | XMS_ITS ---
Care Plan - [facility] Created on: December 27, 2024 Yusuf Cooper : 1970 Sex: Male Author Organization [facility] Address [address] [place] [address] Phone Care Team Providers Care Student Ministry Pastor Name Role Phone Marques MEDEL, Humberto Reed Unavailable [phone] Jacques Maher Unavailable Unavailable
--- OUTSIDE RECORDS SUMMARY | 2024-12-27 13:40 | XMS_ITS ---
Author Organization [facility] , [facility] Address [address] [place] [address] Phone Care Team Providers Care Hardware Technician Name Role Phone Marques MEDEL, Humberto Reed Unavailable [phone] Jacques Maher Unavailable Unavailable Problems Includes: Active, inactive, and resolved Problems All Visits Onset Date Resolved Date Provider Condition S tatus Lower Back Pain 06/06/2023 Kaylin Pulido P A-C Active Last Documented On 4 9:45AM ; [facility] Joint Pain Shoulder Left 06/02/2023 Kaylin Pulido PA-C Active Last Documented On 4 3:01PM ; [facility], [facility] Plan of Treatment Pending Tests Order Diagnosis Results Due Ordering P rovider Procedure/Tests BGO EMG Low back pain, unspecified 06/26 11/18 Shane Cheung MD Last Documented On 4 3:39PM ; [facility], [facility] Instructions to patient Intervention and counseling on cessation of tobacco use Last Documented On 4 1:06PM ; [facility] Lose weight Last Documented On 4 1:06PM ; [facility] Intervention and counseling on cessation of tobacco use Last Documented On 4 12:31PM ; [facility] Lose weight Last Documented On 4 12:31PM ; [facility] Intervention and counseling on cessation of tobacco use Last Documented On 4 1:53PM ; [facility] Lose weight Last Documented On 4 1:53PM ; [facility] Intervention and counseling on cessation of tobacco use Last Documented On 4 9:46AM ; [facility] Lose weight Last Documented On 4 9:46AM ; [facility] Intervention and counseling on cessation of tobacco use Last Documented On 4 2:34PM ; [facility] Lose weight Last Documented On 4 2:01PM ; [facility] Intervention and counseling on cessation of tobacco use Last Documented On 4 1:25PM ; [facility] Lose weight Last Documented On 4 1:22PM ; [facility] Lose weight Last Documented On 4 3:18PM ; [facility] Assessments Includes: Assessments for all patient encounters Findings Encounter Date Overweight Follow Up with Anatoliy Mckenna PA-C 12/14/2023 Last Documented On 4 1:18PM ; [facility] Overweight Post Op with Kaylin Pulido PA-C 10/10/2023 Last Documented On 4 2:14PM ; [facility] Overweight Post Op with Chestdod Pulido PA-C 08/08/2023 Last Documented On 4 9:09AM ; [facility] Overweight Follow Up with Shane Cheung MD 06/30/2023 Last Documented On 4 3:39PM ; [facility] Overweight Follow Up with Humberto malagon MD 06/20/2023 Last Documented On 4 2:34PM ; [facility] Overweight Next Available Non-Specified Phy sician with Anatoliy Franco PA-C 06/06/2023 Last Documented On 4 9:59AM ; [facility] Overweight Next Available Non-S pecified Physician with Kaylin Pulido PA-C 06/02/2023 Last Documented On 4 12:36PM ; [facility] Instructions Includes: Instructions for all patient encounters Instructions to patient Intervention and counseling on cessation of tobacco use Last Documented On 4 1:06PM ; [facility] Lose weight Last Documented On 4 1:06PM ; [facility] Intervention and counseling on cessation of tobacco use Last Documented On 4 12:31PM ; [facility] Lose weight Last Documented On 4 12:31PM ; [facility] Intervention and counseling on cessation of tobacco use Last Documented On 4 1:53PM ; [facility] Lose weight Last Documented On 4 1:53PM ; [facility] Intervention and counseling on cessation of tobacco use Last Documented On 4 9:46AM ; [facility] Lose weight Last Documented On 4 9:46AM ; [facility] Intervention and counseling on cessation of tobacco use Last Documented On 4 2:34PM ; [facility] Lose weight Last Documented On 4 2:01PM ; [facility] Intervention and counseling on cessation of tobacco use Last Documented On 4 1:25PM ; [facility] Lose weight Last Documented On 4 1:22PM ; [facility] Lose weight Last Documented On 4 3:18PM ; [facility] Medical Equipment - Implanted Devices Includes: Current and historical Devices No Medical Equipment Recorded Medications Includes: Current and historical Medications Current Medications (continue as prescribed) Triamcinolone Acetonide 0.1% External Cream 12/14/2023 Provider: Anatoliy Charles Diagnosis: twice a day Last Documented On 4 1:27PM By Anatoliy [facility] Pepcid 20 MG Oral Tablet 12/14/2023 Provider: Prabhakar Mckenna PA-C Diagnosis: once a day Last Documented On 4 1:27PM By Anatoliy Mckenna ; [facility] Amantadine HCl 100 MG Oral Tablet 12/05/2023 Provide r: GIOVANNA RAYMOND MD Diagnosis: Last Documented On 4 1:07PM By Marychuy Serrano ; [facility] Gabapentin 800 MG Oral Tablet 12/04/2023 Provider: Diagnosis: Last Documented On 4 1:07PM By Marychuy Serrano ; [facility] Testosterone Cypionate 200 M G/ML Intramuscular Solution 11/30/2023 Provider: BINDU MONTENEGRO MD Diagnosis: Last Documented On 4 1:07PM By Marychuy Serrano ; [facility] FT Allergy Relief 24 Hour 180 MG Oral Tablet Provider: Diagnosis: Last Documented On 4 1:07PM By Marychuy Serrano ; [facility] Rosuvastatin Calcium 10 MG Oral Tablet 11/10/2023 Pr ovider: Diagnosis: Last Documented On 4 1:07PM By Marychuy Serrano ; [facility] oxyCODONE HCl 5 MG Oral Tablet 11/09/2023 Provider: Humberto Mohan MD Diagnosis: Last Documented On 4 1:07PM By Marychuy Serrano ; [facility], [facility] Amantadine HCl 100 MG Oral Tablet 11/07/2023 Provide r: GIOVANNA RAYMOND MD Diagnosis: Last Documented On 4 1:07PM By Marychuy Serrano ; [facility], [facility] Atorvastatin Calcium 20 MG Oral Tablet 09/26/2023 Pr ovider: Diagnosis: Last Documented On 4 12:31PM By Kris Gutierrez ; [facility], [facility] Amantadine HCl 100 MG Oral Tablet 09/12/2023 Provide r: GIOVANNA RAYMOND MD Diagnosis: Last Documented On 4 12:31PM By Kris Gutierrez ; [facility], [facility] Cephalexin 500 MG Oral Capsule 07/24/2023 Provider: Diagnosis: Last Documented On 4 8:44AM By Humberto Mohan ; [facility] Testosterone Cypionate 200 M G/ML Intramuscular Solution 05/26/2023 Provider: BINDU MONTENEGRO MD Diagnosis: Last Documented On 4 3:01PM By Dominique Murray ; [facility] Lisinopril 40 MG Oral Tablet 05/13/2023 Provider: Diagnosis: Last Documented On 4 3:01PM By Dominique Murray ; [facility] HM Allergy Relief 180 MG Oral Tablet 05/11/2023 Prov ider: Anatoliy Coyne MD Diagnosis: Last Documented On 4 3:01PM By Dominique Murray ; [facility], [facility] Gabapentin 800 MG Oral Tablet 05/08/2023 Provider: Diagnosis: Last Documented On 4 3:01PM By Dominique Murray ; [facility], [facility] Amitriptyline HCl 25 MG Oral Tablet 05/03/2023 Provi becky: Diagnosis: Last Documented On 4 3:01PM By Dominique Murray ; [facility], [facility] HYDROcodone-Acetaminophen 7.5-325 MG Oral Tablet 04/19 Provider: Diagnosis: Last Documented On 4 3:01PM By Dominique Murray ; [facility], [facility] Past Medications on file oxyCODONE HCl 5 MG Oral Tablet 11/09/2023 - 11/16/2023 Provider: Humberto kapadia MD Diagnosis: 1 q 6 hours prn pain Last Documented On 4 3:28PM By Humberto Mohan ; [facility], [facility] oxyCODONE HCl 5 MG Oral Tablet 11/02/2023 - 11/09/2023 Provider: Humberto kapdaia MD Diagnosis: 1 q 6 hours prn pain Last Documented On 4 12:19PM By Humberto Mohan ; [facility], [facility] oxyCODONE HCl 5 MG Oral Tablet 10/25/2023 - 11/01/2023 Provider: Humberto kapadia MD Diagnosis: 1 q 6 hours prn pain Last Documented On 4 2:47PM By Humberto Mohan ; [facility], [facility] oxyCODONE HCl 5 MG Oral Tablet 10/17/2023 - 10/24/2023 Provider: Humberto kapadia MD Diagnosis: 1 q 6 hours prn pain Last Documented On 4 4:10PM By Humberto Mohan ; [facility], [facility] oxyCODONE HCl 5 MG Oral Tablet 10/12/2023 - 10/19/2023 Provider: Humberto kapadia MD Diagnosis: 1 q 6 hours prn pain Last Documented On 4 4:14PM By Humberto Mohan ; [facility] HYDROcodone-Acetaminophen 5- 325 MG Oral Tablet 10/10/2023 - 10/17/2023 Provider: Humberto Mohan MD Diagnosis: three times a day Last Documented On 4 1:19PM By Humberto Mohan ; [facility] oxyCODONE HCl 5 MG Oral Tablet 10/03/2023 - 10/08/2023 Provider: Humberto kapadia MD Diagnosis: 1-2 po q 4-6h prn post op pain Last Documented On 4 4:36PM By Humberto Mohan ; [facility] oxyCODONE HCl 5 MG Oral Tablet 09/26/2023 - 10/01/2023 Provider: Humberto kapadia MD Diagnosis: 1-2 po q 4-6h prn post op pain Last Documented On 4 12:05PM By Humberto Mohan ; [facility] oxyCODONE HCl 5 MG Oral Tablet 09/19/2023 - 09/24/2023 Provider: Humberto kapadia MD Diagnosis: 1-2 po q 4-6h prn post op pain Last Documented On 4 12:37PM By Humberto Mohan ; [facility] oxyCODONE HCl 5 MG Oral Tablet 09/12/2023 - 09/17/2023 Provider: Humberto kapadia MD Diagnosis: 1-2 po q 4-6h prn post op pain Last Documented On 4 9:53AM By Humberto Mohan ; [facility] oxyCODONE HCl 5 MG Oral Tablet 09/05/2023 - 09/10/2023 Provider: Humberto kapadia MD Diagnosis: 1-2 po q 4-6h prn post op pain Last Documented On 4 5:36PM By Humberto Mohan ; [facility] oxyCODONE HCl 5 MG Oral Tablet 08/30/2023 - 09/04/2023 Provider: Humberto kapadia MD Diagnosis: 1-2 po q 4-6h prn post op pain Last Documented On 4 9:51AM By Humberto Mohan ; [facility] oxyCODONE HCl 5 MG Oral Tablet 08/24/2023 - 08/29/2023 Provider: Humberto kapadia MD Diagnosis: 1-2 po q 4-6h prn post op pain Last Documented On 4 3:04PM By Humberto Mohan ; [facility] oxyCODONE HCl 5 MG Oral Tablet 08/17/2023 - 08/22/2023 Provider: Humberto kapadia MD Diagnosis: 1-2 po q 4-6h prn post op pain Last Documented On 4 12:45PM By Humberto Mohan ; [facility] oxyCODONE HCl 5 MG Oral Tablet 08/12/2023 - 08/17/2023 Provider: Humberto kapadia MD Diagnosis: 1-2 po q 4-6h prn post op pain Last Documented On 4 4:26PM By Humberto Mohan ; [facility] oxyCODONE HCl 5 MG Oral Tablet 08/08/2023 - 08/13/2023 Provider: Humberto kapadia MD Diagnosis: 1-2 po q 4-6h prn post op pain Last Documented On 4 2:43PM By Humberto Mohan ; [facility] oxyCODONE HCl 5 MG Oral Tablet 08/04/2023 - 08/09/2023 Provider: Humberto kapadia MD Diagnosis: 1-2 po q 4-6h prn post op pain Last Documented On 4 4:23PM By Humberto Mohan ; [facility] oxyCODONE HCl 5 MG Oral Tablet 07/28/2023 - 08/02/2023 Provider: Humberto kapadia MD Diagnosis: 1-2 po q 4-6h prn post op pain Last Documented On 4 8:59AM By Humberto Mohan ; [facility] Ondansetron HCl 4 MG Oral Tablet 07/07/2023 - 07/17/2023 Provider: Humberto kapadia MD Diagnosis: 1 q 8 hours prn nausea 1 q 8 hours prn post op nausea Last Documented On 4 8:38AM By Jennifer Finley ; [facility] Benzoyl Peroxide Wash 5% External Liquid 07/07/2023 - 07/08/2023 Provider: Humberto kapadia MD Diagnosis: use as directed by Dr. Mohan Last Documented On 4 8:38AM By Jennifer Finley ; [facility], [facility] Medications Administered Includes: Administered Medications in patient's chart No Administered Medications Recorded Results Includes: Results from 12/28/2023 through 12/27/2024 No Results Recorded For Specified Dates History of Present Illness History of Present Illness not supported for this document type No History of Present Illness Recorded Social History Description Last Updated Tobacco use 07/05/2023 Last Documented On 4 2:34PM ; [facility], [facility] Alcohol use 06/02/2023 Last Documented On 4 12:36PM ; [facility], [facility] Caffeine use 06/02/2023 Last Documented On 4 12:36PM ; [facility], [facility] No recent change in diet 06/02/2023 Last Documented On 4 12:36PM ; [facility] Not exercising regularly 06/02/2023 Last Documented On 4 12:36PM ; [facility], [facility] Not using drugs 06/02/2023 Last Documented On 4 12:36PM ; [facility], [facility] Yes, current smoker. 06/02/2023 Last Documented On 4 12:36PM ; [facility], [facility] Tobacco non-user 06/02/2023 Last Documented On 4 12:36PM ; [facility], [facility] Smoking Status Unknown Procedures and Surgical History Surgical History Last Updated History of hernia repair 06/02/2023 Last Documented On 4 12:36PM ; [facility], [facility] History of Previous Fractures 06/02/2023 Last Documented On 4 12:36PM ; [facility], [facility] Medical History Includes: Medical History in patient's chart Description Last Updated History of arthritis 06/02/2023 Last Documented On 4 12:36PM ; [facility], [facility] History of diverticulitis of colon 06/01 Last Documented On 4 12:36PM ; [facility] History of Fractures 06/02/2023 Last Documented On 4 12:36PM ; [facility] History of History of Blood Transfusion 06/02/2023 Last Documented On 4 12:36PM ; [facility], [facility] History of Hypertension 06/02/2023 Last Documented On 4 12:36PM ; [facility], [facility] History of Sleep Apnea 06/02/2023 Last Documented On 4 12:36PM ; [facility], [facility] Family History Includes: Family History in patient's chart Description Last Updated Family history of heart disease 06/02/19 Last Documented On 4 12:36PM ; [facility], [facility] Family history of rheumatoid arthritis 0 06/02/2023 Last Documented On 4 12:36PM ; [facility], [facility] Family history of systemic hypertension 06/02/2023 Last Documented On 4 12:36PM ; [facility], [facility] Review of Systems Review of Systems not supported for this document type No Review of Systems Recorded Mental Status Description No anxiety Functional Status No Functional Status Recorded Physical Exam Physical Exam not supported for this document type No Physical Exam Recorded Allergies Includes: Active, inactive, and resolved Allergies No Known Allergies Insurance Includes: Active Insurance Policies Plan Name Member ID Group # Subscriber Relationship Effect kayleigh Dates 1 - [employer]na [facility] [id number] Bindu Vega Clinical Notes Includes: Signed Clinical Notes starting from 03/11/2022 No Clinical Notes Recorded
--- OUTSIDE RECORDS SUMMARY | 2024-12-27 13:40 | XMS_ITS | Clinical Summary ---
Author Organization [facility] Address [address] [place] [address] Phone Care Team Providers Care Solution Professional Name Role Phone Marques MEDEL, Humberto Reed Unavailable [phone] Jacques Maher Unavailable Unavailable Reason for Visit and Chief Complaint [Patient Encounter] Problems Includes: Problems addressed during this encounter and other active Problems All Visits Onset Date Resolved Date Provider Condition S tatus Lower Back Pain 06/06/2023 Kaylin Thornton-Andreas Active Last Documented On 4 9:45AM ; [facility] Joint Pain Shoulder Left 06/02/2023 Kaylin Pulido PA-C Active Last Documented On 4 3:01PM ; [facility] Plan of Treatment No Plan of Treatment Recorded Assessments Includes: Assessments from this encounter No Assessments Recorded Medical Equipment - Implanted Devices Includes: Current Devices No Medical Equipment Recorded Medications Includes: Medications discussed during this encounter and other current Medications New / Renewed during this visit Humberto Mohan MD on 09/12/2023 oxyCODONE HCl 5 MG Oral Tablet Provider: Humberto Mohan MD 5 day supply: 40 tablet, 0 refills Diagnosis: 1-2 po q 4-6h prn post op pain Pharmacy: [email or web address] [address], [address] - Last Documented On 4 9:53AM By Humberto Mohan ; [facility], [facility] Current Medications (continue as prescribed) Triamcinolone Acetonide 0.1% External Cream 12/14/2023 Provider: Anatoliy Charles Diagnosis: twice a day Last Documented On 4 1:27PM By Anatoliy Mckenna ; [facility] Pepcid 20 MG Oral Tablet 12/14/2023 Provider: Prabhakar Mckenna PA-C Diagnosis: once a day Last Documented On 4 1:27PM By Anatoliy Mckenna ; [facility] Amantadine HCl 100 MG Oral Tablet 12/05/2023 Provide r: GIOVANNA RAYMOND MD Diagnosis: Last Documented On 4 1:07PM By Marychuy Serrano ; [facility] Gabapentin 800 MG Oral Tablet 12/04/2023 Provider: Diagnosis: Last Documented On 4 1:07PM By Marychuy Serrano ; [facility] Testosterone Cypionate 200 M G/ML Intramuscular Solution 11/30/2023 Provider: YUSUF MONTENEGRO MD Diagnosis: Last Documented On 4 1:07PM By Marychuy Serrano ; [facility], [facility] FT Allergy Relief 24 Hour 180 MG Oral Tablet Provider: Diagnosis: Last Documented On 4 1:07PM By Marychuy Serrano ; [facility] Rosuvastatin Calcium 10 MG Oral Tablet 11/10/2023 Pr ovider: Diagnosis: Last Documented On 4 1:07PM By Marychuy Serrano ; [facility] oxyCODONE HCl 5 MG Oral Tablet 11/09/2023 Provider: Humberto Mohan MD Diagnosis: Last Documented On 4 1:07PM By Marychuy Serrano ; [facility] Amantadine HCl 100 MG Oral Tablet 11/07/2023 Provide r: GIOVANNA RAYMOND MD Diagnosis: Last Documented On 4 1:07PM By Marychuy Serrano ; [facility] Atorvastatin Calcium 20 MG Oral Tablet 09/26/2023 Pr ovider: Diagnosis: Last Documented On 4 12:31PM By Kris Gutierrez ; [facility] Amantadine HCl 100 MG Oral Tablet 09/12/2023 Provide r: GIOVANNA RAYMOND MD Diagnosis: Last Documented On 4 12:31PM By Kris Gutierrez ; [facility] Cephalexin 500 MG Oral Capsule 07/24/2023 Provider: Diagnosis: Last Documented On 4 8:44AM By Humberto Mohan ; [facility] Testosterone Cypionate 200 M G/ML Intramuscular Solution 05/26/2023 Provider: YUSUF MONTENEGRO MD Diagnosis: Last Documented On 4 3:01PM By Dominique Murray ; [facility] Lisinopril 40 MG Oral Tablet 05/13/2023 Provider: Diagnosis: Last Documented On 4 3:01PM By Dominique Murray ; [facility] HM Allergy Relief 180 MG Oral Tablet 05/11/2023 Prov ider: Anatoliy Coyne MD Diagnosis: Last Documented On 4 3:01PM By Dominique Murray ; [facility] Gabapentin 800 MG Oral Tablet 05/08/2023 Provider: Diagnosis: Last Documented On 4 3:01PM By Dominique Murray ; [facility] Amitriptyline HCl 25 MG Oral Tablet 05/03/2023 Provi becky: Diagnosis: Last Documented On 4 3:01PM By Dominique Murray ; [facility] HYDROcodone-Acetaminophen 7.5-325 MG Oral Tablet 04/19 Provider: Diagnosis: Last Documented On 4 3:01PM By Dominique Murray ; [facility] Medications Administered Includes: Administered Medications from this encounter No Administered Medications Recorded Results Includes: Results discussed during this encounter No Results Recorded For Specified Dates History of Present Illness Includes: History of Present Illness from this encounter No History of Present Illness Recorded Social History No Social History Recorded - Smoking Status Unknown Medical History Includes: Medical History addressed during this encounter No Medical History Recorded Family History Includes: Family History addressed during this encounter No Family History Recorded Review of Systems Includes: Review of Systems from this encounter No Review of Systems Recorded Mental Status Includes: Mental Status from this encounter No Mental Status Recorded Functional Status Includes: Functional Status from this encounter No Functional Status Recorded Physical Exam Includes: Physical Exam from this encounter No Physical Exam Recorded Allergies Includes: Active Allergies No Known Allergies Encounters Encounter Provider Location Date Check-In Time Check-Out Time Diagnosis [Patient Encounter] Humberto Mohan MD 09/12/2023 9:41AM 11:59PM Insurance Includes: Active Insurance Policies Plan Name Member ID Group # Subscriber Relationship Effect kayleigh Dates 1 - [employer]etna [facility] [id number] Yusuf Cooper Self Clinical Notes Includes: Clinical Notes from this encounter No Clinical Notes Recorded
--- OUTSIDE RECORDS SUMMARY | 2024-12-27 13:40 | XMS_ITS | Clinical Summary ---
Author Organization [facility] Address [address] [place] [address] Care Team Providers Care Manager Convention Name Role Phone Anatoliy Coyne MD Primary Care Provider [phone] Allergies No known active allergies Medications amLODIPine (Norvasc) 5 MG tablet Take by mouth every night. Active HYDROcodone-ac etaminophen ([place]) 7.5-325 MG tablet Take by mouth 2 [...] each day. 3 Active HM Saline Nasal Slinger 0.65 % nasal spray Administer into each [...] 11/10/2016 Sigmoidoscopy 11/10/2016 [facility]-Colorectal Cancer Screening 11/10/2016 [id number] Vaccine (3 - Moderna risk series) 01/23/2021 [...] IMG CT PROCEDURES Final Re sult * [place] Hepatitis C Antibody (09/09/2018 12:31 AM EDT) [place] Hepatitis C Ab NEGATIVE Reference Range: Negative [facility] 09/09/2018 12:3 1 AM EDT 09/09/2018 12:38 AM EDT Yosvany Baca MD LAB BLOOD ORDERABLES Final Result [facility] from Last 3 Months or Most Recently Relevant to Health Maintenance Insurance AETNA [facility] MEDICAID Care Teams Manager Convention Relationship Specialty Start Date End Date Anatoliy Coyne MD [address] [place] [address] PCP - General 01/28/23
--- OUTSIDE RECORDS SUMMARY | 2024-12-27 13:41 | XMS_ITS | Clinical Summary ---
Author Organization [facility] Address [address] [place] [address] Phone Care Team Providers Care Map Colorer Name Role Phone Marques MEDEL, Humberto Reed Unavailable Unavail able Jacques Maher Unavailable Unavailable Reason for Visit and Chief Complaint The Chief Complaint is: left shoulder pain Problems Includes: Problems addressed during this encounter and other active Problems Current Visit Onset Date Resolved Date Provider Conditio n Status Lower Back Pain 06/06/2023 Kaylin Thornton-C Active Last Documented On 4 9:45AM ; [facility] Past Visits Onset Date Resolved Date Provider Condition Status Joint Pain Shoulder Left 06/02/2023 Kaylin Pulido PA-C Active Last Documented On 4 3:01PM ; [facility] Plan of Treatment Pending Tests Order Diagnosis Results Due Ordering P sera Therapy - Physical Therapy Shoulder Tobacco abuse counseling 12/14/23 Anatoliy Mckenna PA-C Last Documented On 4 1:14PM ; [facility] Instructions to patient Intervention and counseling on cessation of tobacco use Last Documented On 4 1:06PM ; [facility] Lose weight Last Documented On 4 1:06PM ; [facility] Assessments Includes: Assessments from this encounter Findings - Overweight - Last Documented On 12/14/2023 1:18PM ; [facility] Left cuff repair - Last Documented On 12/14/2023 1:18PM ; [facility] Instructions Includes: Instructions from this encounter Instructions to patient Intervention and counseling on cessation of tobacco use Last Documented On 4 1:06PM ; [facility] Lose weight Last Documented On 4 1:06PM ; [facility] Medical Equipment - Implanted Devices Includes: Current Devices No Medical Equipment Recorded Medications Includes: Medications discussed during this encounter and other current Medications New / Renewed during this visit Anatoliy Mckenna PA-C on 12/14/2023 Triamcinolone Acetonide 0.1% External Cream Provider: Anatoliy Charles 30 day supply: 1 gram, 0 refills Diagnosis: twice a day Pharmacy: [facility] [place] - [address], [place], [address] - Last Documented On 4 1:27PM By Anatoliy Mckenna ; [facility] Pepcid 20 MG Oral Tablet Provider: Prabhakar Mckenna PA-C 30 day supply: 30 tablet, 0 refills Diagnosis: once a day Pharmacy: [facility] [place] - [address] [facility], [place], [address] - Last Documented On 4 1:27PM By Anatoliy Mckenna ; [facility] Current Medications (continue as prescribed) Amantadine HCl 100 MG Oral Tablet 12/05/2023 Provide r: GIOVANNA RAYMOND MD Diagnosis: Last Documented On 4 1:07PM By Marychuy Serrano ; [facility] Gabapentin 800 MG Oral Tablet 12/04/2023 Provider: Diagnosis: Last Documented On 4 1:07PM By Marychuy Serrano ; [facility] Testosterone Cypionate 200 M G/ML Intramuscular Solution 11/30/2023 Provider: BINDU MONTENEGRO MD Diagnosis: Last Documented On 4 1:07PM By Marychuy Serrano ; [facility] FT Allergy Relief 24 Hour 180 MG Oral Tablet Provider: Diagnosis: Last Documented On 4 1:07PM By Marychuy Serrano ; [facility] Rosuvastatin Calcium 10 MG Oral Tablet 11/10/2023 Pr ovider: Diagnosis: Last Documented On 4 1:07PM By Marychuy Serrano ; [facility] oxyCODONE HCl 5 MG Oral Tablet 11/09/2023 Provider: Humberto Mohan MD Diagnosis: Last Documented On 4 1:07PM By Marychuy Serrano ; [facility] Amantadine HCl 100 MG Oral Tablet 11/07/2023 Provide r: GIOVANNA RAYMOND MD Diagnosis: Last Documented On 4 1:07PM By Marychuy Serrano ; [facility] Atorvastatin Calcium 20 MG Oral Tablet 09/26/2023 Pr ovider: Diagnosis: Last Documented On 4 12:31PM By Kris Gutierrez ; [facility] Amantadine HCl 100 MG Oral Tablet 09/12/2023 Provide r: GIOVANNA RAYMOND MD Diagnosis: Last Documented On 4 12:31PM By Kris Gutierrez ; [facility] Cephalexin 500 MG Oral Capsule 07/24/2023 Provider: Diagnosis: Last Documented On 4 8:44AM By Humberto Mohan ; [facility] Testosterone Cypionate 200 M G/ML Intramuscular Solution 05/26/2023 Provider: BINDU MONTENEGRO MD Diagnosis: Last Documented On 4 3:01PM By Dominique Murray ; [facility] Lisinopril 40 MG Oral Tablet 05/13/2023 Provider: Diagnosis: Last Documented On 4 3:01PM By Dominique Murray ; [facility] HM Allergy Relief 180 MG Oral Tablet 05/11/2023 Prov ider: Anatoliy Coyne MD Diagnosis: Last Documented On 4 3:01PM By Dominique Murray ; [facility] Gabapentin 800 MG Oral Tablet 05/08/2023 Provider: Diagnosis: Last Documented On 4 3:01PM By Dominique Murray ; [facility] Amitriptyline HCl 25 MG Oral Tablet 05/03/2023 Provi becky: Diagnosis: Last Documented On 4 3:01PM By Dominique Murray ; [facility] HYDROcodone-Acetaminophen 7.5-325 MG Oral Tablet 04/19 Provider: Diagnosis: Last Documented On 4 3:01PM By Dominique Murray ; [facility] Past Medications on file oxyCODONE HCl 5 MG Oral Tablet 11/09/2023 - 11/16/2023 Provider: Humberto kapadia MD Diagnosis: 1 q 6 hours prn pain Last Documented On 4 3:28PM By Humberto Mohan ; [facility] oxyCODONE HCl 5 MG Oral Tablet 11/02/2023 - 11/09/2023 Provider: Humberto kapadia MD Diagnosis: 1 q 6 hours prn pain Last Documented On 4 12:19PM By Humberto Mohan ; [facility] oxyCODONE HCl 5 MG Oral Tablet 10/25/2023 - 11/01/2023 Provider: Humberto kapadia MD Diagnosis: 1 q 6 hours prn pain Last Documented On 4 2:47PM By Humberto Mohan ; [facility] oxyCODONE HCl 5 MG Oral Tablet 10/17/2023 - 10/24/2023 Provider: Humberto kapadia MD Diagnosis: 1 q 6 hours prn pain Last Documented On 4 4:10PM By Humberto Mohan ; [facility] oxyCODONE HCl 5 MG Oral Tablet 10/12/2023 - 10/19/2023 Provider: Humberto kapadia MD Diagnosis: 1 q 6 hours prn pain Last Documented On 4 4:14PM By Humberto Mohan ; [facility] HYDROcodone-Acetaminophen 5- 325 MG Oral Tablet 10/10/2023 - 10/17/2023 Provider: Humberto Mohan MD Diagnosis: three times a day Last Documented On 4 1:19PM By Humberto Mohan ; [facility] oxyCODONE HCl 5 MG Oral Tablet 10/03/2023 - 10/08/2023 Provider: Humberto kapadia MD Diagnosis: 1-2 po q 4-6h prn post op pain Last Documented On 4 4:36PM By Humberto Mohan ; [facility] oxyCODONE HCl 5 MG Oral Tablet 09/26/2023 - 10/01/2023 Provider: Humberto kapadia MD Diagnosis: 1-2 po q 4-6h prn post op pain Last Documented On 4 12:05PM By Humberto Mohan ; [facility] oxyCODONE HCl 5 MG Oral Tablet 09/19/2023 - 09/24/2023 Provider: Humberto kapadia MD Diagnosis: 1-2 po q 4-6h prn post op pain Last Documented On 4 12:37PM By Humberto Mohan ; [facility] oxyCODONE HCl 5 MG Oral Tablet 09/12/2023 - 09/17/2023 Provider: Humberto kapadia MD Diagnosis: 1-2 po q 4-6h prn post op pain Last Documented On 4 9:53AM By Humberto Mohan ; [facility] oxyCODONE HCl 5 MG Oral Tablet 09/05/2023 - 09/10/2023 Provider: Humberto kapadia MD Diagnosis: 1-2 po q 4-6h prn post op pain Last Documented On 4 5:36PM By Humberto Mohan ; [facility] oxyCODONE HCl 5 MG Oral Tablet 08/30/2023 - 09/04/2023 Provider: Humberto kapadia MD Diagnosis: 1-2 po q 4-6h prn post op pain Last Documented On 4 9:51AM By Humberto Mohan ; [facility] oxyCODONE HCl 5 MG Oral Tablet 08/24/2023 - 08/29/2023 Provider: Humberto kapadia MD Diagnosis: 1-2 po q 4-6h prn post op pain Last Documented On 4 3:04PM By Humberto Mohan ; [facility] oxyCODONE HCl 5 MG Oral Tablet 08/17/2023 - 08/22/2023 Provider: Humberto kapadia MD Diagnosis: 1-2 po q 4-6h prn post op pain Last Documented On 4 12:45PM By Humberto Mohan ; [facility] oxyCODONE HCl 5 MG Oral Tablet 08/12/2023 - 08/17/2023 Provider: Humberto kapadia MD Diagnosis: 1-2 po q 4-6h prn post op pain Last Documented On 4 4:26PM By Humberto Mohan ; [facility] oxyCODONE HCl 5 MG Oral Tablet 08/08/2023 - 08/13/2023 Provider: Humberto kapadia MD Diagnosis: 1-2 po q 4-6h prn post op pain Last Documented On 4 2:43PM By Humberto Mohan ; [facility] oxyCODONE HCl 5 MG Oral Tablet 08/04/2023 - 08/09/2023 Provider: Humberto kapadia MD Diagnosis: 1-2 po q 4-6h prn post op pain Last Documented On 4 4:23PM By Humberto Mohan ; [facility] oxyCODONE HCl 5 MG Oral Tablet 07/28/2023 - 08/02/2023 Provider: Humberto kapadia MD Diagnosis: 1-2 po q 4-6h prn post op pain Last Documented On 4 8:59AM By Humberto Mohan ; [facility] Ondansetron HCl 4 MG Oral Tablet 07/07/2023 - 07/17/2023 Provider: Humberto kapadia MD Diagnosis: 1 q 8 hours prn nausea 1 q 8 hours prn post op nausea Last Documented On 4 8:38AM By Jennifer Finley ; [facility] Benzoyl Peroxide Wash 5% External Liquid 07/07/2023 - 07/08/2023 Provider: Humberto kapadia MD Diagnosis: use as directed by Dr. Mohan Last Documented On 4 8:38AM By Jennifer Finley ; [facility] Medications Administered Includes: Administered Medications from this encounter No Administered Medications Recorded Results Includes: Results discussed during this encounter No Results Recorded For Specified Dates History of Present Illness Includes: History of Present Illness from this encounter YANA Cooper is a 53 year old male. - Symptoms Popping and grinding. - Allergy list reviewed - Problem list reviewed - Medication list reviewed - Previous history of new onset pain 1 year ago from unknown cause - Sharp pain Symptoms - Stabbing - Pain is constant (100% of the time) - Pain is throbbing - Pain is dull, aching - Patient pain level from 1-10: 7 Pain is worse with movement - Yes, previous treatment. - History of Physical Therapy - History of Injections - - Review of medications documented Medications used for this condition: Patient seen today in follow up after undergoing a left shoulder rotator cuff repair. He is doing very well. He states his range of motion is improved but still having issues with strength CONSTITUTIONAL: Well developed, well groomed, well nourished patient in no acute distress who appears stated age, height and weight. PSYCHIATRIC: The patient is alert and oriented to person, place, date and situation. Mood and affect are normal for current situation. NEUROLOGICAL: Sensation normal bilateral upper and lower extremities. LYMPHATIC: No pitting edema noted in the lower extremities. SKIN: No lesions noted on upper or lower extremities. Skin is dry, warm and with normal turgor. VASCULAR: No swelling in upper or lower extremities other than described below in extremity exam. Dorsalis Pedis Pulses normal in lower extremities. GAIT AND STATION: Normal gait without assistive devices. Station normal. Musculoskeletal: Left shoulder with full forward elevation as well as full external rotation. Does have 4/5 strength in all planes he is neurovascularly intact Assessment Left shoulder rotator cuff repair Plan We will continue conservative measures I series of pain he will be placed in phase 3 of the rotator cuff repair for follow up with us in 3 months Social History Description Last Updated Tobacco use 07/05/2023 Last Documented On 4 1:06PM ; [facility] Alcohol use 06/02/2023 Last Documented On 4 1:06PM ; [facility] Caffeine use 06/02/2023 Last Documented On 4 1:06PM ; [facility] No recent change in diet 06/02/2023 Last Documented On 4 1:06PM ; [facility] Not exercising regularly 06/02/2023 Last Documented On 4 1:06PM ; [facility] Not using drugs 06/02/2023 Last Documented On 4 1:06PM ; [facility] Yes, current smoker. 06/02/2023 Last Documented On 4 1:06PM ; [facility] Tobacco non-user 06/02/2023 Last Documented On 4 1:06PM ; [facility] Smoking Status Unknown Procedures and Surgical History Includes: Procedures from this encounter Procedures Code Diagnosis Performing Provider Service L ocation Service Date intervention and counseling on cessation of tobacco use 4000F Last Documented On 4 1:06PM ; [facility] use of tobacco assessment performed 1000F Last Documented On 4 1:06PM ; [facility] review of medications documented 1160F Last Documented On 4 1:06PM ; [facility] an X-ray was performed 21801 Last Documented On 4 1:06PM ; [facility] an MRI was performed [id number] Last Documented On 4 1:06PM ; [facility] Surgical History Last Updated History of hernia repair 06/02/2023 Last Documented On 4 1:06PM ; [facility] History of Previous Fractures 06/02/2023 Last Documented On 4 1:06PM ; [facility] Medical History Includes: Medical History addressed during this encounter Description Last Updated History of arthritis 06/02/2023 Last Documented On 4 1:06PM ; [facility] History of diverticulitis of colon 06/01 Last Documented On 4 1:06PM ; [facility] History of Fractures 06/02/2023 Last Documented On 4 1:06PM ; [facility] History of History of Blood Transfusion 06/02/2023 Last Documented On 4 1:06PM ; [facility] History of Hypertension 06/02/2023 Last Documented On 4 1:06PM ; [facility] History of Sleep Apnea 06/02/2023 Last Documented On 4 1:06PM ; [facility] Family History Includes: Family History addressed during this encounter Description Last Updated Family history of heart disease 06/02/19 Last Documented On 4 1:06PM ; [facility] Family history of rheumatoid arthritis 0 06/02/2023 Last Documented On 4 1:06PM ; [facility] Family history of systemic hypertension 06/02/2023 Last Documented On 4 1:06PM ; [facility] Review of Systems Includes: Review of Systems from this encounter Systemic: Feeling tired. No recent weight loss. Recent weight gain. Head: No headache. Sinus pain. Eyes: No vision problems and no Cataracts. Glasses/Contacts. No Glaucoma. Otolaryngeal: No hearing loss and no tinnitus. Cardiovascular: No chest pain or discomfort and no palpitations. Hypertension and High Cholesterol. Pulmonary: No daytime asthma symptoms and no chronic cough. No wheezing. Gastrointestinal: No heartburn and no abdominal pain. No Indigestion, no Peptic Ulcer, no GI Stomach Bleed, no Ulcers, and no Acid Reflux. Endocrine: No hot flashes, no muscle weakness, no Diabetes, no Hypothyroid, and no Hyperthyroid. Hematologic: No easy bleeding, no tendency for easy bruising, and no Anemia. Musculoskeletal: Arthritis and lower back pain. No soft tissue swelling. Pain localized to one or more joints. Neurological: No dizziness and no convulsions. Numbness. Psychological: No anxiety. Emotional lability, depression, and insomnia. Not crying for no reason. Skin: No dry skin. No Ulcers. Scars. No rash. Allergic and Immunologic: Complaint of seasonal allergic reaction. Mental Status Includes: Mental Status from this encounter Description No anxiety Functional Status Includes: Functional Status from this encounter No Functional Status Recorded Physical Exam Includes: Physical Exam from this encounter No Physical Exam Recorded Allergies Includes: Active Allergies No Known Allergies Encounters Encounter Provider Location Date Check-In Time Check-Out Time Diagnosis Follow Up Anatoliy Mckenna PA-C [facility] 12/14/19 24 12:27PM 1:14PM Overweight Insurance Includes: Active Insurance Policies Plan Name Member ID Group # Subscriber Relationship Effect kayleigh Dates 1 - [employer] [facility] [id number] Bindu Cooper Self Clinical Notes Includes: Clinical Notes from this encounter * Progress note Date Encounter Last Documented by 12/14/2023 Follow Up Last documented on 12/14/2023; 1:18 PM, Anatoliy Mckenna PA-C; [facility] Active Problems & Conditions - Joint Pain, Localized in the Left Shoulder - Lower Back Pain Chief Complaint The Chief Complaint is: Left shoulder pain. Referred Here Referred by. History of Present Illness Bindu Cooper is a 53 year old male. - Symptoms Popping and grinding. - Allergy list reviewed - Problem list reviewed - Medication list reviewed - Previous history of new onset pain 1 year ago from unknown cause - Sharp pain Symptoms - Stabbing - Pain is constant (100% of the time) - Pain is throbbing - Pain is dull, aching - Patient pain level from 1-10: 7 Pain is worse with movement - Yes, previous treatment. - History of Physical Therapy - History of Injections - - Review of medications documented Medications used for this condition: Patient seen today in follow up after undergoing a left shoulder rotator cuff repair. He is doing very well. He states his range of motion is improved but still having issues with strength CONSTITUTIONAL: Well developed, well groomed, well nourished patient in no acute distress who appears stated age, height and weight. PSYCHIATRIC: The patient is alert and oriented to person, place, date and situation. Mood and affect are normal for current situation. NEUROLOGICAL: Sensation normal bilateral upper and lower extremities. LYMPHATIC: No pitting edema noted in the lower extremities. SKIN: No lesions noted on upper or lower extremities. Skin is dry, warm and with normal turgor. VASCULAR: No swelling in upper or lower extremities other than described below in extremity exam. Dorsalis Pedis Pulses normal in lower extremities. GAIT AND STATION: Normal gait without assistive devices. Station normal. Musculoskeletal: Left shoulder with full forward elevation as well as full external rotation. Does have 4/5 strength in all planes he is neurovascularly intact Assessment Left shoulder rotator cuff repair Plan We will continue conservative measures I series of pain he will be placed in phase 3 of the rotator cuff repair for follow up with us in 3 months Current Medication - Amantadine HCl 100 MG Oral Tablet 11 days, 0 refills - Amantadine HCl 100 MG Oral Tablet 11 days, 0 refills - Amantadine HCl 100 MG Oral Tablet 11 days, 0 refills - Amitriptyline HCl 25 MG Oral Tablet 60 days, 0 refills - Atorvastatin Calcium 20 MG Oral Tablet 30 days, 0 refills - Cephalexin 500 MG Oral Capsule take as directed 10 days, 0 refills - FT Allergy Relief 24 Hour 180 MG Oral Tablet 30 days, 0 refills - Gabapentin 800 MG Oral Tablet 30 days, 0 refills - Gabapentin 800 MG Oral Tablet 30 days, 0 refills - HM Allergy Relief 180 MG Oral Tablet 30 days, 0 refills - HYDROcodone-Acetaminophen 7.5-325 MG Oral Tablet 30 days, 0 refills - Lisinopril 40 MG Oral Tablet 30 days, 0 refills - oxyCODONE HCl 5 MG Oral Tablet 7 days, 0 refills - Rosuvastatin Calcium 10 MG Oral Tablet 30 days, 0 refills - Testosterone Cypionate 200 MG/ML Intramuscular Solution 42 days, 0 refills - Testosterone Cypionate 200 MG/ML Intramuscular Solution 42 days, 0 refills Past Medical/Surgical History Reported: History of Fractures. Diagnoses: History of Blood Transfusion Sleep Apnea Hypertension. Diverticulitis of colon. Arthritis Surgical: - Hernia repair - Previous Fractures Social History Yes, current smoker. Current diet: No recent change in diet. Caffeine use: Caffeine use. Tobacco use: Tobacco non-user. Alcohol: Alcohol use. Drug Use: Not using drugs. Habits: Not exercising regularly. Allergies - No Known Allergies Family History Heart disease Systemic hypertension Rheumatoid arthritis Review Of Systems Systemic: Feeling tired. No recent weight loss. Recent weight gain. Head: No headache. Sinus pain. Eyes: No vision problems and no Cataracts. Glasses/Contacts. No Glaucoma. Otolaryngeal: No hearing loss and no tinnitus. Cardiovascular: No chest pain or discomfort and no palpitations. Hypertension and High Cholesterol. Pulmonary: No daytime asthma symptoms and no chronic cough. No wheezing. Gastrointestinal: No heartburn and no abdominal pain. No Indigestion, no Peptic Ulcer, no GI Stomach Bleed, no Ulcers, and no Acid Reflux. Endocrine: No hot flashes, no muscle weakness, no Diabetes, no Hypothyroid, and no Hyperthyroid. Hematologic: No easy bleeding, no tendency for easy bruising, and no Anemia. Musculoskeletal: Arthritis and lower back pain. No soft tissue swelling. Pain localized to one or more joints. Neurological: No dizziness and no convulsions. Numbness. Psychological: No anxiety. Emotional lability, depression, and insomnia. Not crying for no reason. Skin: No dry skin. No Ulcers. Scars. No rash. Allergic and Immunologic: Complaint of seasonal allergic reaction. Assessment - Overweight Left cuff repair Previous Tests Imaging: X-Ray: An X-ray was performed. MRI Scan: An MRI was performed. Therapy - Intervention and counseling on cessation of tobacco use. Counseling/Education - Tobacco non-user - Use of tobacco assessment performed - Lose weight Plan StartCited - Other Pepcid 20 MG tablet once a day, 30 days, 0 refills Triamcinolone Acetonide 0.1% gram twice a day, 30 days, 0 refills EndCited StartCited - Tobacco abuse counseling Therapy/Physical Therapy: Shoulder Instructions: See PT order attached EndCited Notes This dictation was done with voice recognition software and may contain errors and omissions. Practice Management Use of tobacco assessment performed Review of medications documented. Care Team - Jacques Maher
--- OUTSIDE RECORDS SUMMARY | 2024-12-27 13:41 | XMS_ITS | Encounter Summary ---
Author Organization Healthcare Address [address] [place] [address] Care Team Providers Care Cardiovascular Operating Room Nurse Name Role Phone Ewa Sandy APRN Primary Care Provider + [phone] Anatoliy Coyne MD Primary Care Provider + [phone] Encounter Details Date Type Department Care Team (Late st Contact Info) Description 12/30/2022 Orders Only External Location [address] [place] [address] Provider, External Social History Tobacco Use Types [...] on filedocumented in this encounter Care Teams Cardiovascular Operating Room Nurse Relationship Specialty Start Date End Date Ewa Sandy APRN [address] [place] [address] PCP - General 08/08/20 01/27/23 Anatoliy Coyne MD [address] [facility] [place] [address] PCP - General 01/28/23 documented as of this encounter
--- OUTSIDE RECORDS SUMMARY | 2024-12-27 13:41 | XMS_ITS | Clinical Summary ---
Author Organization [facility] Address [address] [place] [address] Care Team Providers Care Concrete Finisher Apprentice Name Role Phone Gunnar Jacques Vaughn DO Primary Care Provider [phone] Allergies No known active allergies Medications ondansetron [...] or training? Not on file Preferred Language Yi 07/14/2023 Sex and Gender Information Value Date [...] 09/09/2028 019 Medical Devices Implanted Type Area Insulation Packer Device Identifier Shelf Expiration Date Model / Serial / Lot Sys Sut/Anch Biocomp Speedbridge 4.85 12.5 - [id number] Implanted:Qty: 1 on 07/22/2023 by Humberto Mohan MD at [facility] Implant Left: Shoulder ARTHREX 04/27/2027 [id number] Insurance [facility] Care Teams Concrete Finisher Apprentice Relationship Specialty Start Date End Date Jacuqes Maher DO [address] [place] [id number] PCP - General Internal Medicine 07/14/23
--- OUTSIDE RECORDS SUMMARY | 2024-12-27 13:41 | XMS_ITS | Encounter Summary ---
Author Organization Healthcare Address [address] [place] [address] Care Team Providers Care Personnel Administrator Name Role Phone Anatoliy Coyne MD Primary Care Provider [phone] Encounter Details Date Type Department Care Team ([facility] st Contact Info) Description 03/25/2023 Orders Only External Location [address] [place] [address] Provider, External Social History Tobacco Use Types [...] documented as of this encounter Care Teams Personnel Administrator Relationship Specialty Start Date End Date Anatoliy Coyne MD [address] [place] [address] PCP - General 01/28/23 documented as of this encounter
--- OUTSIDE RECORDS SUMMARY | 2024-12-27 13:41 | XMS_ITS | Encounter Summary ---
Author Organization [facility] Address [address] [place] [address] Care Team Providers Care Society Editor Name Role Phone Ewa Sandy APRN Primary Care Provider [phone] Anatoliy Coyne MD Primary Care Provider + [phone] Encounter Details Date Type Department Care Team (Late st Contact Info) Description 09/13/2018 Orders Only External Location [address] [place] [address] Provider, External Social History Tobacco Use Types [...] on filedocumented in this encounter Care Teams Society Editor Relationship Specialty Start Date End Date Ewa Sandy APRN [address] [place] [address] PCP - General 08/08/20 01/27/23 Anatoliy Coyne MD [facility] [place] [address] PCP - General 01/28/23 documented as of this encounter
--- OUTSIDE RECORDS SUMMARY | 2024-12-27 13:41 | XMS_ITS | Clinical Summary ---
Author Organization [facility] Address [address] [place] [address] Phone Care Team Providers Care Supervisor Building Maintenance Name Role Phone Marques MEDEL, Humberto Reed Unavailable [phone] Jacques Maher Unavailable Unavailable Reason for Visit and Chief Complaint [Patient Encounter] Problems Includes: Problems addressed during this encounter and other active Problems All Visits Onset Date Resolved Date Provider Condition S tatus Lower Back Pain 06/06/2023 Kaylin Thornton-Andreas Active Last Documented On 4 9:45AM ; [facility] Joint Pain Shoulder Left 06/02/2023 Kaylin Pulido PA-C Active Last Documented On 4 3:01PM ; [facility] Plan of Treatment No Plan of Treatment Recorded Assessments Includes: Assessments from this encounter No Assessments Recorded Medical Equipment - Implanted Devices Includes: Current Devices No Medical Equipment Recorded Medications Includes: Medications discussed during this encounter and other current Medications New / Renewed during this visit Humberto Mohan MD on 11/09/2023 oxyCODONE HCl 5 MG Oral Tablet Provider: Humberto Mohan MD 7 day supply: 20 tablet, 0 refills Diagnosis: 1 q 6 hours prn pain Pharmacy: [facility] [address], [place], [address] - Last Documented On 4 3:28PM By Humberto Mohan ; [facility] Current Medications (continue as prescribed) Triamcinolone Acetonide 0.1% External Cream 12/14/2023 Provider: Anatoliy Charles Diagnosis: twice a day Last Documented On 4 1:27PM By Anatoliy Mckenna ; [facility] Pepcid 20 MG Oral Tablet 12/14/2023 Provider: Prabhakar Mckenna PA-C Diagnosis: once a day Last Documented On 4 1:27PM By Anatoliy Mckenna ; [facility] Amantadine HCl 100 MG Oral Tablet 12/05/2023 Provide r: GIOVANNA RAYMOND MD Diagnosis: Last Documented On 4 1:07PM By Marychuy Serrano ; [facility] Gabapentin 800 MG Oral Tablet 12/04/2023 Provider: Diagnosis: Last Documented On 4 1:07PM By Marychuy Serrano ; [facility] Testosterone Cypionate 200 M G/ML Intramuscular Solution 11/30/2023 Provider: YUSUF MONTENEGRO MD Diagnosis: Last Documented On 4 1:07PM By Marychuy Serrano ; [facility] FT Allergy Relief 24 Hour 180 MG Oral Tablet 4 Provider: Diagnosis: Last Documented On 4 1:07PM By Marychuy Serrano ; [facility] Rosuvastatin Calcium 10 MG Oral Tablet 11/10/2023 Pr ovider: Diagnosis: Last Documented On 4 1:07PM By Marychuy Serrano ; [facility] oxyCODONE HCl 5 MG Oral Tablet 11/09/2023 Provider: Humberto Mohan MD Diagnosis: Last Documented On 4 1:07PM By Marychuy Serrano ; [facility] Amantadine HCl 100 MG Oral Tablet 11/07/2023 Provide r: GIOVANNA RAYMOND MD Diagnosis: Last Documented On 4 1:07PM By Marychuy Serrano ; [facility] Atorvastatin Calcium 20 MG Oral Tablet 09/26/2023 Pr ovider: Diagnosis: Last Documented On 4 12:31PM By Kris Gutierrez ; [facility] Amantadine HCl 100 MG Oral Tablet 09/12/2023 Provide r: GIOVANNA RAYMOND MD Diagnosis: Last Documented On 4 12:31PM By Kris Gutierrez ; [facility] Cephalexin 500 MG Oral Capsule 07/24/2023 Provider: Diagnosis: Last Documented On 4 8:44AM By Humberto Mohan ; [facility] Testosterone Cypionate 200 M G/ML Intramuscular Solution 05/26/2023 Provider: YUSUF MONTENEGRO MD Diagnosis: Last Documented On 4 3:01PM By Dominique Murray ; [facility] Lisinopril 40 MG Oral Tablet 05/13/2023 Provider: Diagnosis: Last Documented On 4 3:01PM By Dominique Murray ; [facility] HM Allergy Relief 180 MG Oral Tablet 05/11/2023 Prov ider: Anatoliy Coyne MD Diagnosis: Last Documented On 4 3:01PM By Dominique Murray ; [facility] Gabapentin 800 MG Oral Tablet 05/08/2023 Provider: Diagnosis: Last Documented On 4 3:01PM By Dominique Murray ; [facility] Amitriptyline HCl 25 MG Oral Tablet 05/03/2023 Provi becky: Diagnosis: Last Documented On 4 3:01PM By Dominique Murray ; [facility] HYDROcodone-Acetaminophen 7.5-325 MG Oral Tablet 04/19 Provider: Diagnosis: Last Documented On 4 3:01PM By Dominique Murray ; [facility] Medications Administered Includes: Administered Medications from this [...] Time Diagnosis [Patient Encounter] Humberto Mohan MD 11/09/2023 3:15PM 11:59PM Insurance Includes: Active Insurance Policies Plan Name Member ID Group # Subscriber Relationship Effect kayleigh Dates 1 - [employer] [facility] [id number] Yusuf Cooper Self Clinical Notes Includes: Clinical Notes from this encounter No Clinical Notes Recorded
--- OUTSIDE RECORDS SUMMARY | 2024-12-27 13:41 | XMS_ITS | Clinical Summary ---
Author Organization [facility] Address [address] [place] [address] Phone Care Team Providers Care Patternmaker Pressure Cast Name Role Phone Marques MEDEL, Humberto Reed Unavailable Unavail able Jacques Maher Unavailable Unavailable Reason for Visit and Chief Complaint The Chief Complaint is: left shoulder pain Problems Includes: Problems addressed during this encounter and other active Problems Current Visit Onset Date Resolved Date Provider Conditio n Status Lower Back Pain 06/06/2023 Kaylin Pulido P A-C Active Last Documented On 4 9:45AM ; [facility], [facility] Past Visits Onset Date Resolved Date Provider Condition Status Joint Pain Shoulder Left 06/02/2023 Kaylin Pulido PA-C Active Last Documented On 4 3:01PM ; [facility], [facility] Plan of Treatment Patient is progressing as expected. Rotator cuff repair rehab typically takes between 6- 8 months. The patient will have no restrictions in therapy at this time. They understand the recommendations. Patient will follow-up as scheduled, if there are any issues they can feel free to call the office. - Last Documented On 10/10/2023 2:14PM ; [facility], [facility] Pending Tests Order Diagnosis Results Due Ordering sera Therapy - Physical Therapy Shoulder Pain in left shoulder 10/10/23 Kaylin Pulido PA-C Last Documented On 4 2:14PM ; [facility], [facility] Instructions to patient Intervention and counseling on cessation of tobacco use Last Documented On 4 12:31PM ; [facility], [facility] Lose weight Last Documented On 4 12:31PM ; [facility] Assessments Includes: Assessments from this encounter Findings - Overweight - Last Documented On 10/10/2023 2:14PM ; [facility] Left cuff repair - Last Documented On 10/10/2023 2:14PM ; [facility] Instructions Includes: Instructions from this encounter Instructions to patient Intervention and counseling on cessation of tobacco use Last Documented On 4 12:31PM ; [facility] Lose weight Last Documented On 4 12:31PM ; [facility] Medical Equipment - Implanted Devices Includes: Current Devices No Medical Equipment Recorded Medications Includes: Medications discussed during this encounter and other current Medications New / Renewed during this visit Humberto Mohan MD on 10/10/2023 HYDROcodone-Acetaminophen 5- 325 MG Oral Tablet Provider: Humberto Mohan MD 7 day supply: 21 tablet, 0 refills Diagnosis: three times a day Pharmacy: [facility] [address] [address] - Last Documented On 4 1:19PM By Humberto Mohan ; [facility] Current Medications (continue as prescribed) Triamcinolone Acetonide 0.1% External Cream 12/14/2023 Provider: Anatoliy Charles Diagnosis: twice a day Last Documented On 4 1:27PM [facility] Pepcid 20 MG Oral Tablet 12/14/2023 Provider: Prabhakar Mckenna PA-C Diagnosis: once a day Last Documented On 4 1:27PM By Anatoliy Mckenna ; [facility] Amantadine HCl 100 MG Oral Tablet 12/05/2023 Provide r: GIOVANNA RAYMOND MD Diagnosis: Last Documented On 4 1:07PM By Marychuy Serrano ; [facility] Gabapentin 800 MG Oral Tablet 12/04/2023 Provider: Diagnosis: Last Documented On 4 1:07PM By [facility] Testosterone Cypionate 200 M G/ML Intramuscular Solution 11/30/2023 Provider: BINDU MONTENEGRO MD Diagnosis: Last Documented On 4 1:07PM By Marychuy Serrano ; [facility] FT Allergy Relief 24 Hour 180 MG Oral Tablet 4 Provider: Diagnosis: Last Documented On 4 1:07PM By Marychuy Serrano ; [facility] Rosuvastatin Calcium 10 MG Oral Tablet 11/10/2023 Pr ovider: Diagnosis: Last Documented On 4 1:07PM By Marychuy Serrano ; [facility] oxyCODONE HCl 5 MG Oral Tablet 11/09/2023 Provider: Humberto Mohan MD Diagnosis: Last Documented On 4 1:07PM By Marychuy Serrano ; [facility] Amantadine HCl 100 MG Oral Tablet 11/07/2023 Provide r: GIOVANNA RAYMOND MD Diagnosis: Last Documented On 4 1:07PM By Marychuy Serrano ; [facility] Atorvastatin Calcium 20 MG Oral Tablet 09/26/2023 Pr ovider: Diagnosis: Last Documented On 4 12:31PM By Kris Gutierrez ; [facility] Amantadine HCl 100 MG Oral Tablet 09/12/2023 Provide r: GIOVANNA RAYMOND MD Diagnosis: Last Documented On 4 12:31PM By Kris Gutierrez ; [facility] Cephalexin 500 MG Oral Capsule 07/24/2023 Provider: Diagnosis: Last Documented On 4 8:44AM By Humberto Mohan ; [facility], [facility] Testosterone Cypionate 200 M G/ML Intramuscular Solution 05/26/2023 Provider: BINDU MONTENEGRO MD Diagnosis: Last Documented On 4 3:01PM By Dominique Murray ; [facility] Lisinopril 40 MG Oral Tablet 05/13/2023 Provider: Diagnosis: Last Documented On 4 3:01PM By Dominique Murray ; [facility] HM Allergy Relief 180 MG Oral Tablet 05/11/2023 Prov ider: Anatoliy Coyne MD Diagnosis: Last Documented On 4 3:01PM By Dominique Murray ; [facility] Gabapentin 800 MG Oral Tablet 05/08/2023 Provider: Diagnosis: Last Documented On 4 3:01PM By Dominique Murray ; [facility], [facility] Amitriptyline HCl 25 MG Oral Tablet 05/03/2023 Provi becky: Diagnosis: Last Documented On 4 3:01PM By Dominique Murray ; [facility] HYDROcodone-Acetaminophen 7.5-325 MG Oral Tablet 04/19 Provider: Diagnosis: Last Documented On 4 3:01PM By Dominique Murray ; [facility] Past Medications on file oxyCODONE HCl 5 MG Oral Tablet 11/09/2023 - 11/16/2023 Provider: Humberto kapadia MD Diagnosis: 1 q 6 hours prn pain Last Documented On 4 3:28PM By Humberto Mohan ; [facility] oxyCODONE HCl 5 MG Oral Tablet 11/02/2023 - 11/09/2023 Provider: Humberto kapadia MD Diagnosis: 1 q 6 hours prn pain Last Documented On 4 12:19PM By Humberto Mohan ; [facility] oxyCODONE HCl 5 MG Oral Tablet 10/25/2023 - 11/01/2023 Provider: Humberto kapadia MD Diagnosis: 1 q 6 hours prn pain Last Documented On 4 2:47PM By Humberto Mohan ; [facility] oxyCODONE HCl 5 MG Oral Tablet 10/17/2023 - 10/24/2023 Provider: Humberto kapadia MD Diagnosis: 1 q 6 hours prn pain Last Documented On 4 4:10PM By Humberto Mohan ; [facility] oxyCODONE HCl 5 MG Oral Tablet 10/12/2023 - 10/19/2023 Provider: Humberto kapadia MD Diagnosis: 1 q 6 hours prn pain Last Documented On 4 4:14PM By Humberto Mohan ; [facility] oxyCODONE HCl 5 MG Oral Tablet 10/03/2023 - 10/08/2023 Provider: Humberto kapadia MD Diagnosis: 1-2 po q 4-6h prn post op pain Last Documented On 4 4:36PM By Humberto Mohan ; [facility] oxyCODONE HCl 5 MG Oral Tablet 09/26/2023 - 10/01/2023 Provider: Humberto kapadia MD Diagnosis: 1-2 po q 4-6h prn post op pain Last Documented On 4 12:05PM By Humberto Mohan ; [facility] oxyCODONE HCl 5 MG Oral Tablet 09/19/2023 - 09/24/2023 Provider: Humberto kapadia MD Diagnosis: 1-2 po q 4-6h prn post op pain Last Documented On 4 12:37PM By Humberto Mohan ; [facility] oxyCODONE HCl 5 MG Oral Tablet 09/12/2023 - 09/17/2023 Provider: Humberto kapadia MD Diagnosis: 1-2 po q 4-6h prn post op pain Last Documented On 4 9:53AM By Humberto Mohan ; [facility] oxyCODONE HCl 5 MG Oral Tablet 09/05/2023 - 09/10/2023 Provider: Humberto kapadia MD Diagnosis: 1-2 po q 4-6h prn post op pain Last Documented On 4 5:36PM By Humberto Mohan ; [facility] oxyCODONE HCl 5 MG Oral Tablet 08/30/2023 - 09/04/2023 Provider: Humberto kapadia MD Diagnosis: 1-2 po q 4-6h prn post op pain Last Documented On 4 9:51AM By Humberto Mohan ; [facility] oxyCODONE HCl 5 MG Oral Tablet 08/24/2023 - 08/29/2023 Provider: Humberto kapadia MD Diagnosis: 1-2 po q 4-6h prn post op pain Last Documented On 4 3:04PM By Humberto Mohan ; [facility] oxyCODONE HCl 5 MG Oral Tablet 08/17/2023 - 08/22/2023 Provider: Humberto kapadia MD Diagnosis: 1-2 po q 4-6h prn post op pain Last Documented On 4 12:45PM By Humberto Mohan ; [facility] oxyCODONE HCl 5 MG Oral Tablet 08/12/2023 - 08/17/2023 Provider: Humberto kapadia MD Diagnosis: 1-2 po q 4-6h prn post op pain Last Documented On 4 4:26PM By Humberto Mohan ; [facility] oxyCODONE HCl 5 MG Oral Tablet 08/08/2023 - 08/13/2023 Provider: Humberto kapadia MD Diagnosis: 1-2 po q 4-6h prn post op pain Last Documented On 4 2:43PM By Humberto Mohan ; [facility] oxyCODONE HCl 5 MG Oral Tablet 08/04/2023 - 08/09/2023 Provider: Humberto kapadia MD Diagnosis: 1-2 po q 4-6h prn post op pain Last Documented On 4 4:23PM By Humberto Mohan ; [facility] oxyCODONE HCl 5 MG Oral Tablet 07/28/2023 - 08/02/2023 Provider: Humberto kapadia MD Diagnosis: 1-2 po q 4-6h prn post op pain Last Documented On 4 8:59AM By Humberto Mohan ; [facility] Ondansetron HCl 4 MG Oral Tablet 07/07/2023 - 07/17/2023 Provider: uHmberto kapadia MD Diagnosis: 1 q 8 hours prn nausea 1 q 8 hours prn post op nausea Last Documented On 4 8:38AM By Jennifer Finley ; [facility] Benzoyl Peroxide Wash 5% External Liquid 07/07/2023 - 07/08/2023 Provider: Humberto kapadia MD Diagnosis: use as directed by Dr. Mohan Last Documented On 4 8:38AM By Jennifer Finley ; [facility] Medications Administered Includes: Administered Medications from this encounter No Administered Medications Recorded Vital Signs Includes: Vital Signs from this encounter Vital Name 10/10/2023 12:31P Height (in) 71 Weight (lb) 240 Body Mass Index 33.5 Body Surface Area 2.3 Note: kld Last Documented: On 10/10/2023 12:31P M ; [facility] Results Includes: Results discussed during this encounter No Results Recorded For Specified Dates History of Present Illness Includes: History of Present Illness from this encounter YANA Cooper is a 52 year old male. - Symptoms Popping and [...] medications documented Medications used for this condition: Social History Description Last Updated Tobacco use 07/05/2023 Last Documented On 4 12:31PM ; [facility] Alcohol use 06/02/2023 Last Documented On 4 12:31PM ; [facility] Caffeine use 06/02/2023 Last Documented On 4 12:31PM ; [facility] No recent change in diet 06/02/2023 Last Documented On 4 12:31PM ; [facility] Not exercising regularly 06/02/2023 Last Documented On 4 12:31PM ; [facility] Not using drugs 06/02/2023 Last Documented On 4 12:31PM ; [facility], [facility] Yes, current smoker. 06/02/2023 Last Documented On 4 12:31PM ; [facility] Tobacco non-user 06/02/2023 Last Documented On 4 12:31PM ; [facility] Smoking Status Unknown Procedures and Surgical History Includes: Procedures from this encounter Procedures Code Diagnosis Performing Provider Service L ocation Service Date intervention and counseling on cessation of tobacco use 4000F Last Documented On 4 12:31PM ; [facility] use of tobacco assessment performed 1000F Last Documented On 4 12:31PM ; [facility] review of medications documented 1160F Last Documented On 4 12:31PM ; [facility] an X-ray was performed 80652 Last Documented On 4 12:31PM ; [facility] an MRI was performed 70088 Last Documented On 4 12:31PM ; [facility] Surgical History Last Updated History of hernia repair 06/02/2023 Last Documented On 4 12:31PM ; [facility] History of Previous Fractures 06/02/2023 Last Documented On 4 12:31PM ; [facility] Medical History Includes: Medical History addressed during this encounter Description Last Updated History of arthritis 06/02/2023 Last Documented On 4 12:31PM ; [facility] History of diverticulitis of colon 06/01 Last Documented On 4 12:31PM ; [facility] History of Fractures 06/02/2023 Last Documented On 4 12:31PM ; [facility] History of History of Blood Transfusion 06/02/2023 Last Documented On 4 12:31PM ; [facility] History of Hypertension 06/02/2023 Last Documented On 4 12:31PM ; [facility] History of Sleep Apnea 06/02/2023 Last Documented On 4 12:31PM ; [facility] Family History Includes: Family History addressed during this encounter Description Last Updated Family history of heart disease 06/02/19 Last Documented On 4 12:31PM ; [facility] Family history of rheumatoid arthritis 0 06/02/2023 Last Documented On 4 12:31PM ; [facility] Family history of systemic hypertension 06/02/2023 Last Documented On 4 12:31PM ; [facility] Review of Systems Includes: Review of [...] Exam Includes: Physical Exam from this encounter Allergies Includes: Active Allergies No Known Allergies Encounters Encounter Provider Location Date Check-In Time Check-Out Time Diagnosis Post Op Kaylin Pulido PA-C [facility] 4 12:13PM 1:08PM Overweight Insurance Includes: Active Insurance Policies Plan Name Member ID Group # Subscriber Relationship Effect kayleigh Dates 1 - [facility] [id number] Bindu Cooper Self Clinical Notes Includes: Clinical Notes from this encounter * Progress note Date Encounter Last Documented by 10/10/2023 Post Op Last documented on 10/10/2023; 2:14 PM, Kaylin Pulido PA-C; [facility] Active Problems & Conditions - Joint Pain, Localized in the Left Shoulder - Lower Back Pain Chief Complaint The Chief Complaint is: Left shoulder pain. Referred Here Referred by. History of Present Illness Bindu Cooper is a 52 year old male. - Symptoms Popping and [...] medications documented Medications used for this condition: Current Medication - Amantadine HCl 100 MG Oral Tablet 11 days, 0 refills - Amitriptyline HCl 25 MG Oral Tablet 60 days, 0 refills - Atorvastatin Calcium 20 MG Oral Tablet 30 days, 0 refills - Cephalexin 500 MG Oral Capsule Capsule, conventional take as directed 10 days, 0 refills - Gabapentin 800 MG [...] and Immunologic: Complaint of seasonal allergic reaction. Physical Findings - Vitals taken 10/10/2023 12:31 pm kld Height 71 in Weight 240 lbs Body Mass Index 33.5 kg/m2 Body Surface Area 2.3 m2 Patient is awake and alert and oriented well-groomed and nourished no acute distress. Normal gait and station. There are no skin changes. No sign of infection No swelling or soft tissue edema. The patient has normal neurovascular status. Brisk cap refill throughout. Normal sensation to light touch. There are no joint effusions, muscle or bone deformity. He still has weakness in the cuff passive forward flexion is about 150. Active forward flexion is 110 Assessment - Overweight Left cuff repair Previous Tests Imaging: X-Ray: An X-ray was performed. MRI Scan: An MRI was performed. Therapy - Intervention and counseling on cessation of tobacco use. Counseling/Education - Tobacco non-user - Use of tobacco assessment performed - Lose weight Plan StartCited - Other HYDROcodone-Acetaminophen 5-325 MG tablet three times a day, 7 days, 0 refills EndCited StartCited - Pain in left shoulder Therapy/Physical Therapy: Shoulder Instructions: See PT order attached EndCited Patient is progressing as expected. Rotator cuff repair rehab typically takes between 6- 8 months. The patient will have no restrictions in therapy at this time. They understand the recommendations. Patient will follow-up as scheduled, if there are any issues they can feel free to call the office. Notes This dictation was done with voice recognition software and may contain errors and omissions. Practice Management Use of tobacco assessment performed Review of medications documented. Care Team - Jacques Maher
--- OUTSIDE RECORDS SUMMARY | 2024-12-27 13:41 | XMS_ITS | Encounter Summary ---
Author Organization Healthcare Address [address] [place] [address] Care Team Providers Care Engagement Mgr Name Role Phone Anatoliy Coyne MD Primary Care Provider [phone] Encounter Details Date Type Department Care Team ([facility] st Contact Info) Description 04/13/2023 Orders Only External Location [address] [place] [address] Provider, External Social History Tobacco Use Types [...] documented as of this encounter Care Teams Engagement Mgr Relationship Specialty Start Date End Date Anatoliy Coyne MD [address] [place] [address] PCP - General 01/28/23 documented as of this encounter
--- OUTSIDE RECORDS SUMMARY | 2024-12-27 13:41 | XMS_ITS | Patient Health Record ---
Author Organization [facility] Address [address] [place] [address] Care Team Providers Care Digital Cartographic Technician Name Role Phone YUMIKO PEREZ Primary Care Provider [phone] Reason For Referral No Information Medications Medication [...] Status Risk Notes Problem Generalized anxiety disorder (19588827) Generalized anxiety disorder (300.02) 09/01/19 14 Active confirmed [facility] Problem Dysthymia (62800759) Dysthymic disorder (300.4) 09/01/19 14 Active confirmed [facility] Problem Essential hypertension (45570906) Unspecified essential hypertension (401.9) 09/01/19 14 Active confirmed [facility] Problem Osteoarthritis (580819482) Osteoarthrosis, unspecified whether generalized or localized, other specified sites (715.98) 09/01/19 14 Active confirmed [facility] Problem Tinea unguium (369803387) Tinea unguium (B35.1) 03/20/20 14 Active confirmed [facility] Plan Of Treatment No Information Medical (General) History Surgical History Surgery Date(Month/Year) hernia repair
--- OUTSIDE RECORDS SUMMARY | 2024-12-27 13:41 | XMS_ITS | Clinical Summary ---
Author Organization [facility] , [facility] Address [address] [place] [address] Phone Care Team Providers Care Credit Counselor Name Role Phone Marques MEDEL, Humberto Reed Unavailable Unavail able Jacques Maher Unavailable Unavailable Reason for Visit and Chief Complaint The Chief Complaint is: Left shoulder pain Problems Includes: Problems addressed during this encounter and other active Problems Current Visit Onset Date Resolved Date Provider Conditio n Status Lower Back Pain 06/06/2023 Kaylin Pulido P A-C Active Last Documented On 4 9:45AM ; [facility], [facility] Past Visits Onset Date Resolved Date Provider Condition Status Joint Pain Shoulder Left 06/02/2023 Kaylin Pulido PA-C Active Last Documented On 4 3:01PM ; [facility], [facility] Plan of Treatment Patient understands the restrictions postoperatively. Operative details were explained to the patient. Sling use will be continued. Patient can have active motion of the elbow, forearm, wrist and hand. Physical therapy referral will be given if required. Patient will follow-up as scheduled. If there is any questions or concerns they can call our office. - Last Documented On 08/09/2023 9:09AM ; [facility], [facility] Instructions to patient Intervention and counseling on cessation of tobacco use Last Documented On 4 1:53PM ; [facility], [facility] Lose weight Last Documented On 4 1:53PM ; [facility], [facility] Assessments Includes: Assessments from this encounter Findings - Overweight - Last Documented On 08/09/2023 9:09AM ; [facility], [facility] Left cuff repair - Last Documented On 08/09/2023 9:09AM ; [facility], [facility] Instructions Includes: Instructions from this encounter Instructions to patient Intervention and counseling on cessation of tobacco use Last Documented On 4 1:53PM ; [facility], [facility] Lose weight Last Documented On 4 1:53PM ; [facility], [facility] Medical Equipment - Implanted Devices Includes: Current Devices No Medical Equipment Recorded Medications Includes: Medications discussed during this encounter and other current Medications New / Renewed during this visit Humberto Mohan MD on 08/08/2023 oxyCODONE HCl 5 MG Oral Tablet Provider: Humberto Mohan MD 5 day supply: 40 tablet, 0 refills Diagnosis: 1-2 po q 4-6h prn post op pain Pharmacy: [facility] [address], [address] - Last Documented On 4 2:43PM By Humberto Mohan ; [facility], [facility] Current Medications (continue as prescribed) Triamcinolone Acetonide 0.1% External Cream 12/14/2023 Provider: Anatoliy Charles Diagnosis: twice a day Last Documented On 4 1:27PM By Anatoliy Mckenna ; [facility], [facility] Pepcid 20 MG Oral Tablet 12/14/2023 Provider: Prabhakar Mckenna PA-C Diagnosis: once a day Last Documented On 4 1:27PM By Anatoliy Mckenna ; [facility], [facility] Amantadine HCl 100 MG Oral Tablet 12/05/2023 Provide r: GIOVANNA RAYMOND MD Diagnosis: Last Documented On 4 1:07PM By Marychuy Serrano ; [facility], [facility] Gabapentin 800 MG Oral Tablet 12/04/2023 Provider: Diagnosis: Last Documented On 4 1:07PM By Marychuy Serrano ; [facility], [facility] Testosterone Cypionate 200 M G/ML Intramuscular Solution 11/30/2023 Provider: BINDU MONTENEGRO MD Diagnosis: Last Documented On 4 1:07PM By Marychuy Serrano ; [facility], [facility] FT Allergy Relief 24 Hour 180 MG Oral Tablet Provider: Diagnosis: Last Documented On 4 1:07PM By Marychuy Serrano ; [facility] Rosuvastatin Calcium 10 MG Oral Tablet 11/10/2023 Pr ovider: Diagnosis: Last Documented On 4 1:07PM By Marychuy Serrano ; [facility] oxyCODONE HCl 5 MG Oral Tablet 11/09/2023 Provider: Humberto Mohan MD Diagnosis: Last Documented On 4 1:07PM By Marychuy Serrano ; [facility] Amantadine HCl 100 MG Oral Tablet 11/07/2023 Provide r: GIOVANNA RAYMOND MD Diagnosis: Last Documented On 4 1:07PM By Marychuy Serrano ; [facility], [facility] Atorvastatin Calcium 20 MG Oral Tablet 09/26/2023 Pr ovider: Diagnosis: Last Documented On 4 12:31PM By Kris Gutierrez ; [facility], [facility] Amantadine HCl 100 MG Oral Tablet 09/12/2023 Provide r: GIOVANNA RAYMOND MD Diagnosis: Last Documented On 4 12:31PM By Kris Gutierrez ; [facility], [facility] Cephalexin 500 MG Oral Capsule 07/24/2023 Provider: Diagnosis: Last Documented On 4 8:44AM By Humberto Mohan ; [facility], [facility] Testosterone Cypionate 200 M G/ML Intramuscular Solution 05/26/2023 Provider: BINDU MONTENEGRO MD Diagnosis: Last Documented On 4 3:01PM By Dominique Murray ; [facility], [facility] Lisinopril 40 MG Oral Tablet 05/13/2023 Provider: Diagnosis: Last Documented On 4 3:01PM By Dominique Murray ; [facility] HM Allergy Relief 180 MG Oral Tablet 05/11/2023 Prov ider: Anatoliy Coyne MD Diagnosis: Last Documented On 4 3:01PM By Dominique Murray ; [facility] Gabapentin 800 MG Oral Tablet 05/08/2023 Provider: Diagnosis: Last Documented On 4 3:01PM By Dominique Murray ; [facility] Amitriptyline HCl 25 MG Oral Tablet 05/03/2023 Provi becky: Diagnosis: Last Documented On 4 3:01PM By Dominique Murray ; [facility] HYDROcodone-Acetaminophen 7.5-325 MG Oral Tablet 04/19 Provider: Diagnosis: Last Documented On 4 3:01PM By Dominique Murray ; [facility] Past Medications on file oxyCODONE HCl 5 MG Oral Tablet 11/09/2023 - 11/16/2023 Provider: Humberto kapadia MD Diagnosis: 1 q 6 hours prn pain Last Documented On 4 3:28PM By Humberto Mohan ; [facility] oxyCODONE HCl 5 MG Oral Tablet 11/02/2023 - 11/09/2023 Provider: Humberto kapadia MD Diagnosis: 1 q 6 hours prn pain Last Documented On 4 12:19PM By Humberto Mohan ; [facility] oxyCODONE HCl 5 MG Oral Tablet 10/25/2023 - 11/01/2023 Provider: Humberto kapadia MD Diagnosis: 1 q 6 hours prn pain Last Documented On 4 2:47PM By Humberto Mohan ; [facility] oxyCODONE HCl 5 MG Oral Tablet 10/17/2023 - 10/24/2023 Provider: Humberto kapadia MD Diagnosis: 1 q 6 hours prn pain Last Documented On 4 4:10PM By Humberto Mohan ; [facility] oxyCODONE HCl 5 MG Oral Tablet 10/12/2023 - 10/19/2023 Provider: Humberto kapadia MD Diagnosis: 1 q 6 hours prn pain Last Documented On 4 4:14PM By Humberto Mohan ; [facility] HYDROcodone-Acetaminophen 5- 325 MG Oral Tablet 10/10/2023 - 10/17/2023 Provider: Humberto Mhoan MD Diagnosis: three times a day Last Documented On 4 1:19PM By Humberto Mohan ; [facility] oxyCODONE HCl 5 MG Oral Tablet 10/03/2023 - 10/08/2023 Provider: Humberto kapadia MD Diagnosis: 1-2 po q 4-6h prn post op pain Last Documented On 4 4:36PM By Humberto Mohan ; [facility] oxyCODONE HCl 5 MG Oral Tablet 09/26/2023 - 10/01/2023 Provider: Humberto kapadia MD Diagnosis: 1-2 po q 4-6h prn post op pain Last Documented On 4 12:05PM By Humberto Mohan ; [facility] oxyCODONE HCl 5 MG Oral Tablet 09/19/2023 - 09/24/2023 Provider: Humberto kapadia MD Diagnosis: 1-2 po q 4-6h prn post op pain Last Documented On 4 12:37PM By Humberto Mohan ; [facility] oxyCODONE HCl 5 MG Oral Tablet 09/12/2023 - 09/17/2023 Provider: Humberto kapadia MD Diagnosis: 1-2 po q 4-6h prn post op pain Last Documented On 4 9:53AM By Humberto Mohan ; [facility] oxyCODONE HCl 5 MG Oral Tablet 09/05/2023 - 09/10/2023 Provider: Humberto kapadia MD Diagnosis: 1-2 po q 4-6h prn post op pain Last Documented On 4 5:36PM By Humberto Mohan ; [facility] oxyCODONE HCl 5 MG Oral Tablet 08/30/2023 - 09/04/2023 Provider: Humberto kapadia MD Diagnosis: 1-2 po q 4-6h prn post op pain Last Documented On 4 9:51AM By Humberto Mohan ; [facility] oxyCODONE HCl 5 MG Oral Tablet 08/24/2023 - 08/29/2023 Provider: Humberto kapadia MD Diagnosis: 1-2 po q 4-6h prn post op pain Last Documented On 4 3:04PM By Humberto Mohan ; [facility] oxyCODONE HCl 5 MG Oral Tablet 08/17/2023 - 08/22/2023 Provider: Humberto kapadia MD Diagnosis: 1-2 po q 4-6h prn post op pain Last Documented On 4 12:45PM By Humberto Mohan ; [facility] oxyCODONE HCl 5 MG Oral Tablet 08/12/2023 - 08/17/2023 Provider: Humberto kapadia MD Diagnosis: 1-2 po q 4-6h prn post op pain Last Documented On 4 4:26PM By Humberto Mohan ; [facility] oxyCODONE HCl 5 MG Oral Tablet 08/04/2023 - 08/09/2023 Provider: Humberto kapadia MD Diagnosis: 1-2 po q 4-6h prn post op pain Last Documented On 4 4:23PM By Humberto Mohan ; [facility] oxyCODONE HCl 5 MG Oral Tablet 07/28/2023 - 08/02/2023 Provider: Humberto kapadia MD Diagnosis: 1-2 po q 4-6h prn post op pain Last Documented On 4 8:59AM By Humberto Mohan ; [facility] Ondansetron HCl 4 MG Oral Tablet 07/07/2023 - 07/17/2023 Provider: Humberto kapadia MD Diagnosis: 1 q 8 hours prn nausea 1 q 8 hours prn post op nausea Last Documented On 4 8:38AM By Jennifer Funes [facility] Benzoyl Peroxide Wash 5% External Liquid 07/07/2023 - 07/08/2023 Provider: Humberto kapadia MD Diagnosis: use as directed by Dr. Mohan Last Documented On 4 8:38AM By Jennifer Finley ; [facility] Medications Administered Includes: Administered Medications from this encounter No Administered Medications Recorded Vital Signs Includes: Vital Signs from this encounter Vital Name 08/08/2023 01:53P Height (in) 71 Weight (lb) 240 Body Mass Index 33.5 Body Surface Area 2.3 Note: hdv Last Documented: On 08/08/2023 1:54PM ; [facility] Results Includes: Results discussed during this [...] Tobacco use 07/05/2023 Last Documented On 4 1:53PM ; [facility] Alcohol use 06/02/2023 Last Documented On 4 1:53PM ; [facility] Caffeine use 06/02/2023 Last Documented On 4 1:53PM ; [facility] No recent change in diet 06/02/2023 Last Documented On 4 1:53PM ; [facility] Not exercising regularly 06/02/2023 Last Documented On 4 1:53PM ; [facility] Not using drugs 06/02/2023 Last Documented On 4 1:53PM ; [facility] Yes, current smoker. 06/02/2023 Last Documented On 4 1:53PM ; [facility] Tobacco non-user 06/02/2023 Last Documented On 4 1:53PM ; [facility], [facility] Smoking Status Unknown Procedures and Surgical History Includes: Procedures from this encounter Procedures Code Diagnosis Performing Provider Service L ocation Service Date intervention and counseling on cessation of tobacco use 4000F Last Documented On 4 1:53PM ; [facility], [facility] use of tobacco assessment performed 1000F Last Documented On 4 1:53PM ; [facility] review of medications documented 1160F Last Documented On 4 1:53PM ; [facility] an X-ray was performed 33007 Last Documented On 4 1:53PM ; [facility] an MRI was performed 62473 Last Documented On 4 1:53PM ; [facility], [facility] Surgical History Last Updated History of hernia repair 06/02/2023 Last Documented On 4 1:53PM ; [facility], [facility] History of Previous Fractures 06/02/2023 Last Documented On 4 1:53PM ; [facility], [facility] Medical History Includes: Medical History addressed during this encounter Description Last Updated History of arthritis 06/02/2023 Last Documented On 4 1:53PM ; [facility], [facility] History of diverticulitis of colon 06/01 Last Documented On 4 1:53PM ; [facility], [facility] History of Fractures 06/02/2023 Last Documented On 4 1:53PM ; [facility], [facility] History of History of Blood Transfusion 06/02/2023 Last Documented On 4 1:53PM ; [facility], [facility] History of Hypertension 06/02/2023 Last Documented On 4 1:53PM ; [facility], [facility] History of Sleep Apnea 06/02/2023 Last Documented On 4 1:53PM ; [facility], [facility] Family History Includes: Family History addressed during this encounter Description Last Updated Family history of heart disease 06/02/19 Last Documented On 4 1:53PM ; [facility], [facility] Family history of rheumatoid arthritis 0 06/02/2023 Last Documented On 4 1:53PM ; [facility], [facility] Family history of systemic hypertension 06/02/2023 Last Documented On 4 1:53PM ; [facility], [facility] Review of Systems Includes: Review of [...] Time Diagnosis Post Op Kaylin Pulido PA-C [facility] 4 1:39PM 2:17PM Overweight Insurance Includes: Active Insurance Policies Plan Name Member ID Group # Subscriber Relationship Effect kayleigh Dates 1 - [employer] [facility] [id number] Bindu Cooper Self Clinical Notes Includes: Clinical Notes from this encounter * Progress note Date Encounter Last Documented by 08/08/2023 Post Op Last documented on 08/09/2023; 9:09 AM, Kaylin Pulido PA-C; [facility], [facility] Active Problems & Conditions - Joint [...] used for this condition: Current Medication - Amitriptyline HCl 25 MG Oral Tablet 60 days, 0 refills - Cephalexin 500 MG [...] - oxyCODONE HCl 5 MG Oral Tablet 1-2 po q 4-6h prn post op pain, 5 days, 0 refills - Testosterone Cypionate 200 [...] allergic reaction. Physical Findings - Vitals taken 08/08/2023 01:53 pm hdv Height 71 in Weight 240 lbs Body Mass Index 33.5 kg/m2 Body Surface Area 2.3 m2 There is no edema in the extremity. Sutures are removed. No sign of active infection. Sensation light touch is intact. +2 radial pulse and brisk cap refill. No sign of wound dehiscence. Normal motion of the elbow forearm wrist and hand. Assessment - Overweight Left cuff repair Previous Tests Imaging: Intravascular Ultrasound (Coronary Vessel/Graft): An X-ray was performed. CT Scan Lower Extremity Foot: An MRI was performed. Therapy - Intervention and counseling on cessation of tobacco use. Counseling/Education - Tobacco non-user - Use of tobacco assessment performed - Lose weight Plan StartCited - Other oxyCODONE HCl 5 MG tablet 1-2 po q 4-6h prn post op pain, 5 days, 0 refills EndCited Patient understands the restrictions postoperatively. Operative details were explained to the patient. Sling use will be continued. Patient can have active motion of the elbow, forearm, wrist and hand. Physical therapy referral will be given if required. Patient will follow-up as scheduled. If there is any questions or concerns they can call our office. Notes This dictation was done with voice recognition software and may contain errors and omissions. Practice Management Use of tobacco assessment performed Review of medications documented. Care Team - Jacques Maher
--- OUTSIDE RECORDS SUMMARY | 2024-12-27 13:41 | XMS_ITS | Encounter Summary ---
Author Organization Healthcare Address [address] [place] [address] Care Team Providers Care Used Car Renovator Name Role Phone Ewa Sandy APRN Primary Care Provider + [phone] Anatoliy Coyne MD Primary Care Provider + [phone] Encounter Details Date Type Department Care Team (Late st Contact Info) Description 09/13/2018 Orders Only External Location [address] [place] [address] Provider, External Social History Tobacco Use Types [...] on filedocumented in this encounter Care Teams Used Car Renovator Relationship Specialty Start Date End Date Ewa Sadny APRN [address] [place] [address] PCP - General 08/08/20 01/27/23 Anatoliy Coyne MD [address] [facility] [place] [id number] PCP - General 01/28/23 documented as of this encounter
--- OUTSIDE RECORDS SUMMARY | 2024-12-27 13:41 | XMS_ITS | Encounter Summary ---
Author Organization Healthcare Address [address] [place] [address] Care Team Providers Care Crane Mechanic Name Role Phone Ewa Sandy APRN Primary Care Provider + [phone] Anatoliy Coyne MD Primary Care Provider + [phone] Encounter Details Date Type Department Care Team (Late st Contact Info) Description 09/13/2018 Orders Only External Location [address] [place] [address] Provider, External Social History Tobacco Use Types [...] on filedocumented in this encounter Care Teams Crane Mechanic Relationship Specialty Start Date End Date Ewa Sandy APRN [address] [place] [address] PCP - General 08/08/20 01/27/23 Anatoliy Coyen MD [address] [facility] [place] [id number] PCP - General 01/28/23 documented as of this encounter
--- OUTSIDE RECORDS SUMMARY | 2024-12-27 13:41 | XMS_ITS | Data Portability ---
Author Organization [facility] Medicine and [facility] Address [address] [place] [address] Assessment No assessment recorded. Plan of Treatment Reminders Order Date Submit Date Provider Last Modified By Organization Details Last Modified Time Details Appointments OV EST 15 2024 01:30P M Yusuf Patel Jr, MD Not available Not available Not available Lab CBC [address] (Lab Registration) , [address] [place], [address], 09/06/2024 12:19:04 testoster one, free + total, serum [address] (Lab Registration) , [address] [place], [address], 09/06/2024 12:19:04 estradiol , serum 2024 025 ESHA [facility] (Lab Registration) , [address] [place], [address], 09/12/2024 19:11:23 testoster one, free + total, serum 2023 024 [email or web address] [facility] (Laboratory), [address] [place], [address], 03/14/2024 07:24:45 CBC [address] (Laboratory), [address] [place], [address], 03/08/2024 13:07:47 PSA, serum or plasma [address] (Laboratory), [address] [place], [address], 03/08/2024 13:07:47 estradiol , serum 2023 024 [facility] (Laboratory), [address] [place], [address], 03/13/2024 13:09:49 testoster one, free + total, serum [address] (Laboratory), [address] [place], [address], 09/14/2023 09:49:08 CBC [address] (Laboratory), [address] [place], [address], 09/14/2023 09:49:09 testoster one, free + total, serum [address] (Lab Registration) , [address] [place], [address], 01/17/2023 07:37:50 CBC [address] (Laboratory), [address] [place], [address], 01/17/2023 07:37:50 PSA, serum or plasma [address] (Laboratory), [address] [place], [address], 01/06/2023 10:51:26 testoster one, free + total, serum 2022 023 Not available 07/28/2022 08:03:08 CBC 2022 023 ESHA Not available 07/07/2022 16:35:45 urinalysi s, dipstick [address] [facility], 8 [facility], [place], [address], 07/07/2022 12:39:47 Referral None recorded. Procedures None recorded. Surgeries None recorded. Imaging None recorded. Medication Orders sildenafi l (pulmonar y hypertens ion) 20 mg tablet 2024 025 [facility], [address] [place] [address], [facility], [place], [address], 09/12/2024 23:10:30 testoster one cypionate 200 mg/mL intramusc ular oil 2024 025 [facility], [address] [place] [address], [place], [address], 09/12/2024 23:10:32 sildenafi l (pulmonar y hypertens ion) 20 mg tablet 2023 024 [facility], [address] [place] [address], [facility], [place], [address], 03/07/2024 16:10:33 testoster one cypionate 200 mg/mL intramusc ular oil 2023 024 [facility], [address] [place] [address] 2, [place], [address], 03/07/2024 16:10:37 testoster one cypionate 200 mg/mL intramusc ular oil [address], [address] [place] [address], [address], [address], 09/07/2023 14:17:51 testoster one cypionate 200 mg/mL intramusc ular oil 2022 023 [facility], [address] [place] [address], [address], [place], [address], 01/05/2023 12:49:21 sildenafi l (pulmonar y hypertens ion) 20 mg tablet 2022 023 [facility], [address] [place] [address], [address], [place], [address], 07/07/2022 15:19:02 testoster one cypionate 200 mg/mL intramusc ular oil 2022 023 [email or web address] [facility], [address] [place] [address], [address], [place], [address], 07/13/2022 11:25:18 Patient TargetsNo targets recorded. Patient InstructionsNo instructions recorded. Reason for Referral None Reported. Results Created Date Observation Date Name Description Value Unit Range Abnormal Flag Note LastModifiedBy Organization Detail LastModifiedTime 07/08/1907/07/2022 CBC AUTO NO DIFF (HEMO GRAM) WBC 11.8 10 4.5-11 .5 high Not Available [facility] (Lab Registration) [address] [place], [address], 07/07/2022 16:35:45 07/08/19 23 07/07/2022 CBC AUTO NO DIFF (HEMO GRAM) RBC 5.26 10 4.25-5 .57 Not Available [facility] (Lab Registration) [address] [place], [address], 07/07/2022 16:35:45 07/08/19 23 07/07/2022 CBC AUTO NO DIFF (HEMO GRAM) HGB 17.0 g/dL 13.5-1 7.2 Not Available [facility] (Lab Registration) [address] [place], [address], 07/07/2022 16:35:45 07/08/19 23 07/07/2022 CBC AUTO NO DIFF (HEMO GRAM) HCT 50.2 % 42.0-5 2.0 Not Available [facility] (Lab Registration) [address] [place], [address], 07/07/2022 16:35:45 07/08/19 23 07/07/2022 CBC AUTO NO DIFF (HEMO GRAM) MCV 95.4 fL 80-95 high Not Available [facility] (Lab Registration) [address] [place], [address], 07/07/2022 16:35:45 07/08/19 23 07/07/2022 CBC AUTO NO DIFF (HEMO GRAM) MCH 32.3 pg 27.0-3 4.0 Not Available [facility] (Lab Registration) [address] [place], [address], 07/07/2022 16:35:45 07/08/19 23 07/07/2022 CBC AUTO NO DIFF (HEMO GRAM) MCHC 33.9 g/dL 32.0-3 6.0 Not Available [facility] (Lab Registration) [address] [place], [address], 07/07/2022 16:35:45 07/08/19 23 07/07/2022 CBC AUTO NO DIFF (HEMO GRAM) platelet count 450 10 150-45 0 Not Available [facility] (Lab Registration) [address] [place], [address], 07/07/2022 16:35:45 07/08/19 23 07/07/2022 CBC AUTO NO DIFF (HEMO GRAM) RDW 14.3 % 12.3-1 5.1 Not Available [facility] (Lab Registration) [address] [place], [address], 07/07/2022 16:35:45 07/08/19 23 07/07/2022 CBC AUTO NO DIFF (HEMO GRAM) MPV 10.0 fL 7.4-10 .4 Not Available [facility] (Lab Registration) [address] [place], [address], 07/07/2022 16:35:45 07/08/19 23 07/07/2022 CBC AUTO NO DIFF (HEMO GRAM) note Unles s other rios noted testi ng perfo rmed at: [facility] [address] [place], [place] [id number] [phone] Tanner weston MD CLIA: [id number] Not Available [facility] (Lab Registration) [address] [place], [address], 07/07/2022 16:35:45 07/08/19 23 07/07/2022 TESTO STERO NE TOTAL note Unles s other rios noted testi ng perfo rmed at: [facility] [address] [place], [place] [id number] [phone] Tanner weston MD CLIA: [id number] Not Available [facility] (Lab Registration) [address] [place], [address], 07/11/2022 18:10:00 07/08/19 23 07/11/2022 TESTO STERO NE TOTAL testosterone , serum 205 NG/dL 264-91 6 low Adult male refer ence inter matteo is based on a popul ation of healt hy nonob bette males (BMI <30) betwe en 19 and 39 years old. Tori stanley, et.al . JCEM 2017, 102;1 161-1 173. PMID: 39957 103. Perfo [place]med at: [place] [address] 126 Lab Direc tor: Grady andujar PhD, Phone : [phone] Not Available [facility] (Lab Registration) [address] [place], [address], 07/11/2022 18:10:00 07/08/19 23 07/07/2022 urina lysis , dipst ick Leukocytes (reference range) negati ve Not Available [facility] [address] [place], [address], 07/07/2022 12:32:22 07/08/19 23 07/07/2022 urina lysis , dipst ick Nitrite (reference range:) negati ve Not Available [address], [address], 07/07/2022 12:32:22 07/08/19 23 07/07/2022 urina lysis , dipst ick Urobilinogen (reference range) 0.2 Not Available [address], [address], 07/07/2022 12:32:22 07/08/19 23 07/07/2022 urina lysis , dipst ick Protein (reference range) negati ve Not Available [address], [address], 07/07/2022 12:32:22 07/08/19 23 07/07/2022 urina lysis , dipst ick pH (reference range 5-8.5) 6.5 Not Available [address], [address], 07/07/2022 12:32:22 07/08/19 23 07/07/2022 urina lysis , dipst ick Blood (reference range:) negati ve Not Available [address], [address], 07/07/2022 12:32:22 07/08/19 23 07/07/2022 urina lysis , dipst ick Specific [place] (reference range) 1.010 Not Available [address], [address], 07/07/2022 12:32:22 07/08/19 23 07/07/2022 urina lysis , dipst ick Ketone (reference range) negati ve Not Available [facility] [address] [place], [address], 07/07/2022 12:32:22 07/08/19 23 07/07/2022 urina lysis , dipst ick Bilirubin (reference range) negati ve Not Available [facility] [address] [place], [address], 07/07/2022 12:32:22 07/08/19 23 07/07/2022 urina lysis , dipst ick Glucose (reference range) negati ve Not Available [facility] [address] [place], [address], 07/07/2022 12:32:22 01/06/20 23 01/05/2023 CBC AUTO W DIFF WBC 10.7 10 4.5-11 .5 Not Available [facility] (Lab Registration) [address], [place], [address], 01/05/2023 16:57:01 01/06/20 23 01/05/2023 CBC AUTO W DIFF RBC 4.95 10 4.25-5 .57 Not Available [facility] (Lab Registration) [address], [place], [address], 01/05/2023 16:57:01 01/06/20 23 01/05/2023 CBC AUTO W DIFF HGB 16.3 g/dL 13.5-1 7.2 Not Available [facility] (Lab Registration) [address], [place], [address], 01/05/2023 16:57:01 01/06/20 23 01/05/2023 CBC AUTO W DIFF HCT 48.2 % 42.0-5 2.0 Not Available [facility] (Lab Registration) [address], [place], [address], 01/05/2023 16:57:01 01/06/20 23 01/05/2023 CBC AUTO W DIFF MCV 97.4 fL 80-95 high Not Available [facility] (Lab Registration) [address] [place], [address], 01/05/2023 16:57:01 01/06/20 23 01/05/2023 CBC AUTO W DIFF MCH 32.9 pg 27.0-3 4.0 Not Available [facility] (Lab Registration) [address] [place], [address], 01/05/2023 16:57:01 01/06/20 23 01/05/2023 CBC AUTO W DIFF MCHC 33.8 g/dL 32.0-3 6.0 Not Available [facility] (Lab Registration) [address] [place], [address], 01/05/2023 16:57:01 01/06/20 23 01/05/2023 CBC AUTO W DIFF platelet count 419 10 150-45 0 Not Available [facility] (Lab Registration) [address] [place], [address], 01/05/2023 16:57:01 01/06/2001/05/2023 CBC AUTO W DIFF RDW 15.6 % 12.3-1 5.1 high Not Available [facility] (Lab Registration) [address] [place], [address], 01/05/2023 16:57:01 01/06/2001/05/2023 CBC AUTO W DIFF MPV 9.8 fL 7.4-10 .4 Not Available [facility] (Lab Registration) [address] [place], [address], 01/05/2023 16:57:01 01/06/2001/05/2023 CBC AUTO W DIFF granulocyte% 50.0 % 40-75 Not Available [facility] (Lab Registration) [address] [place], [address], 01/05/2023 16:57:01 01/06/20 23 01/05/2023 CBC AUTO W DIFF lymphocyte% 29.1 % 15-57 Not Available [facility] (Lab Registration) [address], [place], [address], 01/05/2023 16:57:01 01/06/20 23 01/05/2023 CBC AUTO W DIFF monocyte% 16.7 % 4.0-12 .0 high Not Available [facility] (Lab Registration) [address], [place], [address], 01/05/2023 16:57:01 01/06/20 23 01/05/2023 CBC AUTO W DIFF eosinophil% 3.2 % 0.0-4. 0 Not Available [facility] (Lab Registration) [address], [place], [address], 01/05/2023 16:57:01 01/06/20 23 01/05/2023 CBC AUTO W DIFF basophil% 0.6 % 0.0-1. 0 Not Available [facility] (Lab Registration) [address] [place], [address], 01/05/2023 16:57:01 01/06/20 23 01/05/2023 CBC AUTO W DIFF immature granulocytes % 0.4 % 0.0-0. 8 Not Available [facility] (Lab Registration) [address] [place], [address], 01/05/2023 16:57:01 01/06/20 23 01/05/2023 CBC AUTO W DIFF granulocyte# 5.35 10 Not Available [facility] (Lab Registration) [address] [place], [address], 01/05/2023 16:57:01 01/06/2001/05/2023 CBC AUTO W DIFF lymphocyte# 3.10 10 Not Available [facility] (Lab Registration) [address] [place], [address], 01/05/2023 16:57:01 01/06/20 23 01/05/2023 CBC AUTO W DIFF monocyte# 1.78 10 Not Available [facility] (Lab Registration) [address] [place], [address], 01/05/2023 16:57:01 01/06/2001/05/2023 CBC AUTO W DIFF eosinophil# 0.34 10 Not Available [facility] (Lab Registration) [address] [place], [address], 01/05/2023 16:57:01 01/06/20 23 01/05/2023 CBC AUTO W DIFF basophil# 0.06 10 Not Available [facility] (Lab Registration) [address] [place], [address], 01/05/2023 16:57:01 01/06/2001/05/2023 CBC AUTO W DIFF immature granulocytes # 0.04 10 Not Available [facility] (Lab Registration) [address] [place], [address], 01/05/2023 16:57:01 01/06/2001/05/2023 CBC AUTO W DIFF manual differential NO Not Available [facility] (Lab Registration) [address] [place], [address], 01/05/2023 16:57:01 01/06/2001/05/2023 CBC AUTO W DIFF note Unles s other rios noted testi ng perfo rmed at: [facility] [address] [place] [address] [phone] Tanner weston MD CLIA: [id number] Not Available [facility] (Lab Registration) [address] [place], [address], 01/05/2023 16:57:01 01/06/2001/05/2023 PROST ATE SPECI FIC AG (PSA) prostate specific Ag (PSA) 3.48 NG/mL 0.0-4. 0 Not Available [facility] (Lab Registration) [address] [place], [address], 01/05/2023 17:10:09 01/06/20 23 01/05/2023 PROST ATE SPECI FIC AG (PSA) note Unles s other rios noted testi ng perfo rmed at: [facility] [address] [place] [address] [phone] Tanner weston MD CLIA: [id number] Not Available [facility] (Lab Registration) [address], [place], [address], 01/05/2023 17:10:09 01/06/20 23 01/05/2023 TESTO STERO NE TOTAL note Unles s other rios noted testi ng perfo rmed at: [facility] [address] [place] [address] [phone] Tanner weston MD CLIA: [id number] Not Available [facility] (Lab Registration) [address], [place], [address], 01/07/2023 09:14:17 01/06/2001/07/2023 TESTO STERO NE TOTAL testosterone , serum 676 NG/dL 264-91 6 Adult male refer ence inter matteo is based on a popul ation of healt hy nonob bette males (BMI <30) betwe en 19 and 39 years old. Tori stanley, et.al . JCEM 2017, 102;1 161-1 173. PMID: 09468 103. Perfo rmed at: [facility] [address] [place] [address] Lab Direc tor: Grady andujar PhD, Phone : [phone] Not Available [facility] (Lab Registration) [address], [place], [address], 01/07/2023 09:14:17 01/06/20 23 01/05/2023 TESTO STERO NE FREE note Unles s other rios noted testi ng perfo rmed at: [facility] [address] [place] [address] [phone] Tanner weston MD CLIA: [id number] Not Available [facility] (Lab Registration) [address] [place], [address], 01/14/2023 03:38:03 01/06/20 23 01/14/2023 TESTO STERO NE FREE free testosterone (direct) 17.1 pg/mL 7.2-24 .0 Perfo rmed at: [facility] [place] [address] [facility] , [place] [id number] Lab Direc tor: Eva kumari MD, Phone : [phone] SENT TO REFER ENCE LAB Not Available [facility] (Lab Registration) [address] [place], [address], 01/14/2023 03:38:03 09/07/19 24 09/07/2023 CBC AUTO W DIFF WBC 22.6 10 4.5-11 .5 high Not Available [facility] (Lab Registration) [address] [place], [address], 09/07/2023 16:56:15 09/07/19 24 09/07/2023 CBC AUTO W DIFF RBC 5.10 10 4.25-5 .57 Not Available [facility] (Lab Registration) [address] [place], [address], 09/07/2023 16:56:15 09/07/19 24 09/07/2023 CBC AUTO W DIFF HGB 16.6 g/dL 13.5-1 7.2 Not Available [facility] (Lab Registration) [address] [place], [address], 09/07/2023 16:56:15 09/07/19 24 09/07/2023 CBC AUTO W DIFF HCT 49.3 % 42.0-5 2.0 Not Available [facility] (Lab Registration) [address] [place], [address], 09/07/2023 16:56:15 09/07/19 24 09/07/2023 CBC AUTO W DIFF MCV 96.7 fL 80-95 high Not Available [facility] (Lab Registration) [address] [place], [address], 09/07/2023 16:56:15 09/07/19 24 09/07/2023 CBC AUTO W DIFF MCH 32.5 pg 27.0-3 4.0 Not Available [facility] (Lab Registration) [address] [place], [address], 09/07/2023 16:56:15 09/07/19 24 09/07/2023 CBC AUTO W DIFF MCHC 33.7 g/dL 32.0-3 6.0 Not Available [facility] (Lab Registration) [address] [place], [address], 09/07/2023 16:56:15 09/07/19 24 09/07/2023 CBC AUTO W DIFF platelet count 455 10 150-45 0 high Not Available [facility] (Lab Registration) [address] [place], [address], 09/07/2023 16:56:15 09/07/19 24 09/07/2023 CBC AUTO W DIFF RDW 13.6 % 12.3-1 5.1 Not Available [facility] (Lab Registration) [address] [place], [address], 09/07/2023 16:56:15 09/07/19 24 09/07/2023 CBC AUTO W DIFF MPV 9.0 fL 7.4-10 .4 Not Available [facility] (Lab Registration) [address] [place], [address], 09/07/2023 16:56:15 09/07/19 24 09/07/2023 CBC AUTO W DIFF granulocyte% 84.0 % 40-75 high Not Available [facility] (Lab Registration) [address] [place], [address], 09/07/2023 16:56:15 09/07/19 24 09/07/2023 CBC AUTO W DIFF lymphocyte% 7.5 % 15-57 low Not Available [facility] (Lab Registration) [address] [place], [address], 09/07/2023 16:56:15 09/07/19 24 09/07/2023 CBC AUTO W DIFF monocyte% 7.9 % 4.0-12 .0 Not Available [facility] (Lab Registration) [address] [place], [address], 09/07/2023 16:56:15 09/07/19 24 09/07/2023 CBC AUTO W DIFF eosinophil% 0.1 % 0.0-4. 0 Not Available [facility] (Lab Registration) [address] [place], [address], 09/07/2023 16:56:15 09/07/19 24 09/07/2023 CBC AUTO W DIFF basophil% 0.1 % 0.0-1. 0 Not Available [facility] (Lab Registration) [address] [place], [address], 09/07/2023 16:56:15 09/07/19 24 09/07/2023 CBC AUTO W DIFF immature granulocytes % 0.4 % 0.0-0. 8 Not Available [facility] (Lab Registration) [address] [place], [address], 09/07/2023 16:56:15 09/07/19 24 09/07/2023 CBC AUTO W DIFF granulocyte# 18.94 10 Not Available [facility] (Lab Registration) [address] [place], [address], 09/07/2023 16:56:15 09/07/19 24 09/07/2023 CBC AUTO W DIFF lymphocyte# 1.69 10 Not Available [facility] (Lab Registration) [address] [place], [address], 09/07/2023 16:56:15 09/07/19 24 09/07/2023 CBC AUTO W DIFF monocyte# 1.79 10 Not Available [facility] (Lab Registration) [address], [place], [address], 09/07/2023 16:56:15 09/07/19 24 09/07/2023 CBC AUTO W DIFF eosinophil# 0.03 10 Not Available [facility] (Lab Registration) [address] [place], [address], 09/07/2023 16:56:15 09/07/19 24 09/07/2023 CBC AUTO W DIFF basophil# 0.03 10 Not Available [facility] (Lab Registration) [address], [address], 09/07/2023 16:56:15 09/07/19 24 09/07/2023 CBC AUTO W DIFF immature granulocytes # 0.09 10 Not Available [facility] (Lab Registration) [address], [address], 09/07/2023 16:56:15 09/07/19 24 09/07/2023 CBC AUTO W DIFF manual differential NO Not Available [facility] (Lab Registration) [address], [address], 09/07/2023 16:56:15 09/07/19 24 09/07/2023 CBC AUTO W DIFF note Unles s other rios noted testi ng perfo rmed at: [facility] [address] [address] [phone] Tanner weston MD CLIA: [id number] Not Available [facility] (Lab Registration) [address] [place], [address], 09/07/2023 16:56:15 09/07/19 24 09/07/2023 TESTO STERO NE FREE note Unles s other rios noted testi ng perfo rmed at: [facility] [address] [place] [address] [phone] Tanner weston MD CLIA: [id number] Not Available [facility] (Lab Registration) [address] [place], [address], 09/13/2023 20:11:13 09/07/19 24 09/13/2023 TESTO STERO NE FREE free testosterone (direct) 2.7 pg/mL 7.2-24 .0 low Perfo rmed at: [facility] [place] [address] [facility] , [place] [id number] Lab Direc tor: Eva kumari MD, Phone : [phone] SENT TO REFER ENCE LAB Not Available [facility] (Lab Registration) [address] [place], [address], 09/13/2023 20:11:13 03/07/20 24 03/07/2024 CBC AUTO NO DIFF (HEMO GRAM) WBC 12.5 10 4.5-11 .5 high Not Available [facility] (Lab Registration) [address] [place], [address], 03/07/2024 17:17:17 03/07/20 24 03/07/2024 CBC AUTO NO DIFF (HEMO GRAM) RBC 5.45 10 4.25-5 .57 Not Available [facility] (Lab Registration) [address] [place], [address], 03/07/2024 17:17:17 03/07/20 24 03/07/2024 CBC AUTO NO DIFF (HEMO GRAM) HGB 17.8 g/dL 13.5-1 7.2 high Not Available [facility] (Lab Registration) [address] [place], [address], 03/07/2024 17:17:17 03/07/20 24 03/07/2024 CBC AUTO NO DIFF (HEMO GRAM) HCT 53.4 % 42.0-5 2.0 high Not Available [facility] (Lab Registration) [address] [place], [address], 03/07/2024 17:17:17 03/07/20 24 03/07/2024 CBC AUTO NO DIFF (HEMO GRAM) MCV 98.0 fL 80-95 high Not Available [facility] (Lab Registration) [address] [place], [address], 03/07/2024 17:17:17 03/07/20 24 03/07/2024 CBC AUTO NO DIFF (HEMO GRAM) MCH 32.7 pg 27.0-3 4.0 Not Available [facility] (Lab Registration) [address] [place], [address], 03/07/2024 17:17:17 03/07/20 24 03/07/2024 CBC AUTO NO DIFF (HEMO GRAM) MCHC 33.3 g/dL 32.0-3 6.0 Not Available [facility] (Lab Registration) [address] [place], [address], 03/07/2024 17:17:17 03/07/20 24 03/07/2024 CBC AUTO NO DIFF (HEMO GRAM) platelet count 363 10 150-45 0 Not Available [facility] (Lab Registration) [address] [place], [address], 03/07/2024 17:17:17 03/07/20 24 03/07/2024 CBC AUTO NO DIFF (HEMO GRAM) RDW 14.2 % 12.3-1 5.1 Not Available [facility] (Lab Registration) [address] [place], [address], 03/07/2024 17:17:17 03/07/20 24 03/07/2024 CBC AUTO NO DIFF (HEMO GRAM) MPV 10.2 fL 7.4-10 .4 Not Available [facility] (Lab Registration) [address] [place], [address], 03/07/2024 17:17:17 03/07/20 24 03/07/2024 CBC AUTO NO DIFF (HEMO GRAM) note Unles s other rios noted testi ng perfo rmed at: [facility] [address] [place] [phone] Tanner weston MD CLIA: [id number] Not Available [facility] (Lab Registration) [address], [place], [address], 03/07/2024 17:17:17 03/07/20 24 03/07/2024 PROST ATE SPECI FIC AG (PSA) prostate specific Ag (PSA) 2.32 NG/mL 0.0-4. 0 Not Available [facility] (Lab Registration) [address], [address], 03/07/2024 17:46:10 03/07/20 24 03/07/2024 PROST ATE SPECI FIC AG (PSA) note Unles s other rios noted testi ng perfo rmed at: [facility] [address] [place] [address] [phone] Tanner weston MD CLIA: [id number] Not Available [facility] (Lab Registration) [address] [place], [address], 03/07/2024 17:46:10 03/07/20 24 03/07/2024 TESTO STERO NE TOTAL note Unles s other rios noted testi ng perfo rmed at: [facility] [address] [place] [address] [phone] Tanner weston MD CLIA: [id number] Not Available [facility] (Lab Registration) [address] [place], [address], 03/08/2024 11:15:22 03/07/20 24 03/08/2024 TESTO STERO NE TOTAL testosterone , serum 134 NG/dL [id number] 6 low Adult male refer ence inter matteo is based on a popul ation of healt hy nonob bette males (BMI <30) betwe en 19 and 39 years old. Tori stanley, et.al . JCEM 2017, 102;1 161-1 173. PMID: [id number]. Perfo rmed at: CB - [facility] [address] [facility], [place] [id number] Lab Direc tor: Grady andujar PhD, Phone : [phone] Not Available [facility] (Lab Registration) [address], [place], [address], 03/08/2024 11:15:22 03/07/20 24 03/07/2024 TESTO STERO NE FREE note Unles s other rios noted testi ng perfo rmed at: [facility] [address] [place] [address] [phone] Tanner weston MD CLIA: [id number] Not Available [facility] (Lab Registration) [address], [place], [address], 03/11/2024 06:43:43 03/07/20 24 03/11/2024 TESTO STERO NE FREE free testosterone (direct) 3.6 pg/mL 7.2-24 .0 low Perfo rmed at: [facility] [place] [facility] [address] [facility] [place] [place] [address] 72[address] Lab Direc tor: Eva kumari MD, Phone : [phone] SENT TO REFER ENCE LAB Not Available [facility] (Lab Registration) [address] [place], [address], 03/11/2024 06:43:43 03/07/20 24 03/07/2024 ESTRA DIOL note Unles s other rios noted testi ng perfo rmed at: [facility] [place] [address] [phone] Tanner weston MD CLIA: [id number] Not Available [facility] (Lab Registration) [address] [place], [address], 03/13/2024 13:09:49 03/07/20 24 03/13/2024 ESTRA DIOL estradiol, sensitive TNP pg/mL Speci men Comme nt: Test( s) 30086 0-Est radio l, Sensi tive Speci men [...] at: - [facility] [place] [address] [facility] [place] [place] [address] Lab Direc tor: Eva kumari MD, Phone : [phone] SENT TO REFER ENCE LAB Not Available [facility] (Lab Registration) [address] [place], [address], 03/13/2024 13:09:49 09/06/19 25 09/05/2024 CBC AUTO NO DIFF (HEMO GRAM) WBC 10.6 10 4.5-11 .5 Not Available [facility] (Lab Registration) [address] [place], [address], 09/05/2024 16:58:39 09/06/19 25 09/05/2024 CBC AUTO NO DIFF (HEMO GRAM) RBC 6.11 10 4.25-5 .57 high Not Available [facility] (Lab Registration) [address] [place], [address], 09/05/2024 16:58:39 09/06/19 25 09/05/2024 CBC AUTO NO DIFF (HEMO GRAM) HGB 19.9 g/dL 13.5-1 7.2 high Not Available [facility] (Lab Registration) [address] [place], [address], 09/05/2024 16:58:39 09/06/19 25 09/05/2024 CBC AUTO NO DIFF (HEMO GRAM) HCT 60.1 % 42.0-5 2.0 critical high Not Available [facility] (Lab Registration) [address] [place], [address], 09/05/2024 16:58:39 09/06/19 25 09/05/2024 CBC AUTO NO DIFF (HEMO GRAM) MCV 98.4 fL 80-95 high Not Available [facility] (Lab Registration) [address] [place], [address], 09/05/2024 16:58:39 09/06/19 25 09/05/2024 CBC AUTO NO DIFF (HEMO GRAM) MCH 32.6 pg 27.0-3 4.0 Not Available [facility] (Lab Registration) [address] [place], [address], 09/05/2024 16:58:39 09/06/19 25 09/05/2024 CBC AUTO NO DIFF (HEMO GRAM) MCHC 33.1 g/dL 32.0-3 6.0 Not Available [facility] (Lab Registration) [address] [place], [address], 09/05/2024 16:58:39 09/06/19 25 09/05/2024 CBC AUTO NO DIFF (HEMO GRAM) platelet count 376 10 150-45 0 Not Available [facility] (Lab Registration) [address] [place], [address], 09/05/2024 16:58:39 09/06/19 25 09/05/2024 CBC AUTO NO DIFF (HEMO GRAM) RDW 14.0 % 12.3-1 5.1 Not Available [facility] (Lab Registration) [address] [place], [address], 09/05/2024 16:58:39 09/06/19 25 09/05/2024 CBC AUTO NO DIFF (HEMO GRAM) MPV 9.8 fL 7.4-10 .4 Not Available [facility] (Lab Registration) [address] [place], [address], 09/05/2024 16:58:39 09/06/19 25 09/05/2024 CBC AUTO NO DIFF (HEMO GRAM) note Unles s other rios noted testi ng perfo rmed at: [facility] [address] [place] [address] [phone] Tanner weston MD CLIA: [id number] Not Available [facility] (Lab Registration) [address] [place], [address], 09/05/2024 16:58:39 09/06/19 25 09/05/2024 TESTO STERO NE FREE/ TOT EQUIL IB note Unles s other rios noted testi ng perfo rmed at: [facility] [address] [place] [address] [phone] Tanner weston MD CLIA: [id number] Not Available [facility] (Lab Registration) [address] [place], [address], 09/11/2024 12:12:01 09/06/1909/11/2024 TESTO STERO NE FREE/ [...] . JCEM 2017, 102;1 161-1 173. PMID: [id number] 103. Not Available [facility] (Lab Registration) [address] , [place], [address], 09/11/2024 12:12:01 09/06/19 25 09/11/2024 TESTO STERO NE FREE/ TOT EQUIL IB testosterone , free 39.98 NG/dL 5.00-2 1.00 high Not Available [facility] (Lab Registration) [address] , [place], [address], 09/11/2024 12:12:01 09/06/1909/11/2024 TESTO STERO NE FREE/ TOT EQUIL IB % free PSA 3.91 % 1.50-4 .20 Perfo rmed at: - [facility] [place] [address] [facility] , [place] [id number] Lab Direc tor: Eav kumari MD, Phone : [phone] Not Available [facility] (Lab Registration) [address], [place], [address], 09/11/2024 12:12:01 09/06/1909/05/2024 ESTRA DIOL note Unles s other rios noted testi ng perfo rmed at: [facility] [address] [address] [phone] Tanner weston MD CLIA: [id number] Not Available [facility] (Lab Registration) [address], [place], [address], 09/12/2024 19:11:23 09/06/1909/12/2024 ESTRA DIOL estradiol, sensitive 76.1 pg/mL 8.0-35 .0 high Speci men Comme nt: Test( s) 86930 0-Est radio l, Sensi tive Speci men Comme nt: was devel oped and its perfo rmanc e devan cte risti cs Speci men Comme nt: deter mined by [employer]. It has not been kate ared or appro jennifer Speci men Comme nt: by the Food and Drug Admin istra tion. Metho dolog y: Liqui d chrom atogr aphy tande m mass spect romet ry(LC /MS/M S) Perfo rmed at: [facility] [place] [address] , [place] [address] Lab Direc tor: Eva kumari MD, Phone : [phone] Not Available [facility] (Lab Registration) [address] , [place], [address], 09/12/2024 19:11:23 Result Notes None recorded. Problems Name Problem SNOMED Code Status Onset Date Resolution Date Notes Provider Name and Address Organization Details Recorded Time Hypertensive disorder 26882287 Active 2022 Nadia Gaytan null, [place] - [facility] [place] & [place] 3 10:24:28 Environmental allergy 597495204 Active 2022 Nadia Aguilarant null, [place] [facility] [place] 3 10:24:36 Sleep apnea 99358840 Active 2022 Nadia Aguilarant null, [place] [facility] [place] 3 10:24:47 Arthritis 1535283 Active 2022 Nadia Aguilarant null, [place] [facility] [place] 3 10:24:56 Problem Notes None recorded. Procedures Surgical History Date Name Laterality Status Provider Name and Address Organization Details Recorded Time nose excision completed Nadia Aguilarant [place] [facility] [place] 07/07/2022 10:25:30 Hernia Repair completed Nadia Lukas [place] [facility] [place] 07/07/2022 10:25:42 tonsilectomy/a denoids completed Nadia Lukas [place] [facility] [place] 07/07/2022 10:26:06 Imaging Results None recorded. Procedure Notes None recorded. Medical Equipment None Reported. Allergies No known drug allergies Medications Name Sig Start Date Stop Date Status Note LastModified by Organization Details LastModified Time mixing jar, stir stick and spatula 1OZ OINTMENT JAR, MIXING STICK, SPATULA 09/05 completed Not Available Not Available Not Available clindamycin /mupirocin/ itraconazol e 150/20/50mg topical capsule [30401] MIX THE CONTENTS OF 1 CAPSULE WITH DILUENT. APPLY TO AFFECTED AREAS. PERFORM TWICE DAILY. FOLLOW WITH OINTMENT. active Not Available Not Available No t Available urea/fluoci nonide 20/ 0.05% cream [47752] APPLY UP TO 4 GRAMS TO AFFECTED [...] cypionate 200 mg/mL intramuscul ar oil INJECT 1 ML INTRAMUSC ULARLY ONCE A WEEK active Not Available Not Available No t [...] Updated DateTime 07/07/2022 177.8 cm 32.4 kg/m2 947503.88 g Nadia Gaytan [facility] & [place] 07/07/2022 10:19:29 Date Recorded Body height Body mass index (BMI) Body weight Body temperature Provider Name and Address Organization Details Last Updated DateTime 09/05/2024 177.8 cm 39.5 kg/m2 242479.9 g 98.1 [degF] Carmelo Rosenberg [facility] & [place] 09/05/2024 13:04:35 Date Recorded Body height Body mass index (BMI) Body weight Provider Name and Address Organization Details Last Updated DateTime 09/07/2023 177.8 cm 32.4 kg/m2 520842.88 g Nadia Gaytan [facility] & [place] 09/07/2023 13:45:43 Date Recorded Body height Body weight Body temperature Provider Name and Address Organization Details Last Updated DateTime 01/05/2023 177.8 cm 154461.88 g 98 [degF] Aster Bender [facility] & [place] 01/05/2023 10:43:26 Date Recorded Body height Body mass index (BMI) Body weight Body temperature Provider Name and Address Organization Details Last Updated DateTime 03/07/2024 177.8 cm 32.4 kg/m2 670194.88 g 98.1 [degF] Ruth Lipscomb [facility] & [place] 03/07/2024 13:54:32 Social History None recorded. Functional Status None recorded. Mental Status None recorded. Family History Relationship Description Onset Age of this Age Resolved Age Notes LastModified by Organization Details LastModified Time Father No current problems or disability [email or web address] Not available 06/26 10:25:06 Mother No current problems or disability [email or web address] Not available 06/26 10:25:06 Medical History No medical history recorded. Past Encounters Encounter ID Performer Location Encounter Start Date Encounter Closed Date Diagnosis/Indication Diagnosis SNOMED-CT Code Diagnosis ICD10 Code Diagnosis IMO Codes Diagnosis Note [id number] Yusuf Patel Jr, MD [facility] [address] [address] 07/07/2022 09:57:06 07/07/2022 11:05:58 Testosterone level below reference range 946899325 R89.1 Patient with history of testostero ne deficiency . He presents for transfer of care regarding his urologic problems today. He has been on testostero ne cypionate 4 mg with good results. We will refill for him today. We will check surveillan ce labs. Erectile dysfunction 860 779382 F52.21 patient with history of erectile dysfunctio n. He continues to take 60-100 mg of sildenafil p.r.n. with good results. [id number] Yusuf Patel Jr, MD [facility] [place] [address] 5 01/05/2023 09:45:39 01/05/2023 11:34:21 Testosterone level below reference range 222172142 R89.1 Patient with history of testostero ne deficiency . He has been on testostero ne cypionate 400 mg q 3 wks with good results. We will refill for him today. We will check surveillan ce labs. Erectile dysfunction 860 847757 F52.21 patient with history of erectile dysfunctio n. He continues to take 60-100 mg of sildenafil p.r.n. with good results. Screening for malignant neoplasm of prostate 130531977 Z12.5 PSA to be drawn today. 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 Continue testostero ne cypionate 400 mg every 3 weeks. Check surveillan ce labs today. Erectile dysfunction 860 621043 F52.21 patient with history of erectile dysfunctio n. He continues to take 60-100 mg of sildenafil p.r.n. with good results Although has not been sexually active since his surgery. Screening for malignant neoplasm of prostate 631829227 Z12.5 P PSA was 3.4 in December. We will recheck at his next visit. [id number] Yusuf Patel Jr, MD [facility] [address] [address] 03/07/2024 13:34:05 03/07/2024 14:10:59 Testosterone level below reference range 693823675 R89.1 Patient with history of testostero ne [...] midcycle. Screening for malignant neoplasm of prostate 506986027 Z12.5 P PSA was 3.4 in December 2022. We will repeat today. Erectile dysfunction 860 955318 F52.21 patient with history of erectile dysfunctio n. He continues to take 60-100 mg of sildenafil p.r.n. with good results . We will refill today. 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 Testostero ne levels were low on 400 mg every 3 weeks. We discussed increasing is regimen and will go to 200 mg every week. Erectile dysfunction 860 822855 N52.9 [id number] patient with history of erectile dysfunctio n. He continues to take 60-100 mg of sildenafil p.r.n. with good results . We will refill today. Screening for malignant neoplasm of prostate 614002903 Z12.5 [id number] patient's PSA was 2.3 in February 2024. He was reassured and will recheck at his next visit. Secondary polycythemia 04624711 D75.1 [id number] patient with history of secondary polycythem ia [...] Knox Member ID Guarantor Name 09/05/2024 2 MEDICAID-AR UNISYS [facility] CHOICES - FFS/TRADITIO NAL Yusuf Cooper [id number] Yusuf Cooper 09/14/2024 1 [employer] - DUAL COMPLETE (MEDICARE REPLACEMENT/ ADVANTAGE - HMO) [id number] Yusuf Cooper [id number] Yusuf Cooper 09/05/2024 1 AETNA [facility] (MEDICAID HMO) Yusuf Cooper [id number] Yusuf Kenneth Notes Date Note Type Note Provider Name and Address Organization Details Recorded Time 07/07/2022 text/html patient is a 51-year-old white male with a history of testosterone deficiency. He also has erectile dysfunction. He was previously seen at [facility]. He comes to the [facility] today for transfer of care. I [...] p.r.n. good results. Yusuf Patel Jr, MD [address] [place] [address], [address], [place], [address], [place] [facility] [place] 07/07/2022 15:17:54 01/05/2023 text/html ROS as noted in the HPI Patient is a 52-year-old white male with [...] of 3 weeks. Patient has seen a methods time analyst about his polycythemia and he was also diagnosed with sleep apnea which can cause the condition. She had no other recommendations other than therapeutic phlebotomy.Patient with history of erectile dysfunction and continues to take sildenafil with good results. Yusuf Patel Jr, MD [address] [place] [address], [address], [place], [address], [facility] & [place] 01/05/2023 12:51:34 09/07/2023 text/html ROS as noted in the HPI Patient is a 52-year-old white male with [...] rotator cuff surgery. Yusuf Patel Jr, MD [address], [address], [place], [address], [facility] & [place] 09/07/2023 14:19:17 03/07/2024 text/html ROS as noted in the HPI Patient is 53-year-old white male with history [...] past for treatment. Yusuf Patel Jr, MD [address] [facility], [address], [place], [address], [facility] & [place] 03/07/2024 16:11:45 09/05/2024 text/html ROS as noted in the HPI Patient is 53-year-old white male with history [...] as needed. Yusuf Patel Jr, MD [address], [address], [place], [address], [place] [facility] & [place] 09/12/2024 23:09:49
--- OUTSIDE RECORDS SUMMARY | 2024-12-27 13:41 | XMS_ITS | Encounter Summary ---
Author Organization Healthcare Address [address] [place] [address] Care Team Providers Care Social Work Instructor Name Role Phone Ewa Sandy APRN Primary Care Provider [phone] Anatoliy Coyne MD Primary Care Provider [phone] Encounter Details Date Type Department Care Team (Late st Contact Info) Description 06/18/2022 Orders Only External Location [address] [place] [address] Anatoliy Coyne MD [address] [place] [address] Social History Tobacco Use Types Packs/Day Years [...] on filedocumented in this encounter Care Teams Social Work Instructor Relationship Specialty Start Date End Date Ewa Sandy APRN [address] [place] [address] PCP - General 08/08/20 01/27/23 Anatoliy Coyne MD [address] [place] [address] [place] [address] PCP - General 01/28/23 documented as of this encounter
[2024-12-27 13:54] LABS: Hematocrit 53.1 % (42.0-52.0); Hemoglobin 17.4 g/dL (14.1-18.0)
--- NOTE | 2024-12-27 15:13 | PC.NURSE ---
HCt 53.1 on todays labs. 20g gauge IV started in left ac by this RN. 364ml blood drawn off before IV stopped draining. pt opted to not be restuck and IV was removed. pt is going to return in two weeks for repeat labs and possible phlebotomy. Bp post procedure was 122/65. pt tolerated well.
== END 2024-12-27 23:59 | disposition home or self-care (01) ==
LOC: INF 13:38
PROVIDERS: PCP Nurse Practitioner Family; Visit Provider Urology
DX: D75.1 Secondary polycythemia (principal)
CPT/HCPCS: 36415; 85014; 85018; 99195

== ENCOUNTER 2025-01-29 12:32 | Outpatient (CLI) | payer MEDICARE, MEDICAID, SELFPAY ==
--- OUTSIDE RECORDS SUMMARY | 2025-01-29 12:35 | XMS_ITS | Clinical Summary ---
Author Organization [facility] Address [address] [place] [address] Care Team Providers Care Runway Model Name Role Phone Jacques Maher DO Primary Care Provider [phone] Allergies No known active allergies Medications ondansetron [...] or training? Not on file Preferred Language Honduran 07/14/2023 Sex and Gender Information Value Date [...] Pneumococcal Vaccine 50+ (2 of 2 - PCV20 or PCV21) 09/14/2018 ZOSTER VACCINE (1 of 2) 11/10/2021 ANNUAL PHYSICAL 07/14/2023 HEPATITIS C SCREENING 07/14/2023 INFLUENZA VACCINE 10/26/2024 TDAP/TD VACCINES (2 - Td or Tdap) 09/09/2028 019 Medical Devices Implanted Type Area Mechanical And Auto Body Car Checker Device Identifier Shelf Expiration Date Model / Serial / Lot Sys Sut/Anch Biocomp Speedbridge 4.85 12.5 - [id number] Implanted:Qty: 1 on 07/22/2023 by Humberto Mohan MD at [facility] Implant Left: Shoulder ARTHREX 04/27/2027 [id number] Insurance Care Teams Runway Model Relationship Specialty Start Date End Date Jacques Maher DO [address] [place], [place] [id number] PCP - General Internal Medicine 07/14/23
--- OUTSIDE RECORDS SUMMARY | 2025-01-29 12:35 | XMS_ITS | Data Portability ---
Author Organization [facility] and [facility] Address [address] [place] [address] Assessment No assessment recorded. Plan of Treatment Reminders Order Date Submit Date Provider Last Modified By Organization Details Last Modified Time Details Appointments OV EST 15 2024 01:45P M Yusuf Patel Jr, MD Not available Not available Not available Lab CBC [address] (Lab Registration) , [address] [place], [address], 09/06/2024 12:19:04 testoster one, free + total, serum [address] (Lab Registration) , [address] [place], [address], 09/06/2024 12:19:04 estradiol , serum 2024 025 ESHA [facility] (Lab Registration) , [address] [place], [address], 09/12/2024 19:11:23 testoster one, free + total, serum 2023 024 [email or web address] [facility] (Laboratory), [address] [place], [address], 03/14/2024 07:24:45 CBC [address] (Laboratory), [address] [place], [address], 03/08/2024 13:07:47 PSA, serum or plasma [address] (Laboratory), [address] [place], [address], 03/08/2024 13:07:47 estradiol , serum 2023 024 [facility] (Laboratory), [address] [place], [address], 03/13/2024 13:09:49 testoster one, free + total, serum [address] (Laboratory), [address] [place], [address], 09/14/2023 09:49:08 CBC [address] (Laboratory), [address] [place], [address], 09/14/2023 09:49:09 testoster one, free + total, serum [address] (Lab Registration) , [address] [place], [address], 01/17/2023 07:37:50 CBC [address] (Laboratory), [address] [place], [address], 01/17/2023 07:37:50 PSA, serum or plasma [address] (Laboratory), [address] [place], [address], 01/06/2023 10:51:26 testoster one, free + total, serum 2022 023 [email or web address] Not available 07/28/2022 08:03:08 CBC 2022 023 ESHA Not available 07/07/2022 16:35:45 urinalysi s, dipstick 2022 023 [facility] [place] [address] [facility] [place], 8 [facility], [place], [address], 07/07/2022 12:39:47 Referral None recorded. Procedures None recorded. Surgeries None recorded. Imaging None recorded. Medication Orders sildenafi l (pulmonar y hypertens ion) 20 mg tablet 2024 025 [facility], [address], [address], 09/12/2024 23:10:30 testoster one cypionate 200 mg/mL intramusc ular oil 2024 025 [facility], [address] [place] [address], [address], 09/12/2024 23:10:32 sildenafi l (pulmonar y hypertens ion) 20 mg tablet 2023 024 [facility], [address], [address], 03/07/2024 16:10:33 testoster one cypionate 200 mg/mL intramusc ular oil 2023 024 [facility], [facility] [address], [address], 03/07/2024 16:10:37 testoster one cypionate 200 mg/mL intramusc ular oil [address], [address], [address], 09/07/2023 14:17:51 testoster one cypionate 200 mg/mL intramusc ular oil 2022 023 [facility], [address] [facility] [address], [place], [address], 01/05/2023 12:49:21 sildenafi l (pulmonar y hypertens ion) 20 mg tablet 2022 023 [facility], [address] [facility] [address], [place], [address], 07/07/2022 15:19:02 testoster one cypionate 200 mg/mL intramusc ular oil 2022 023 [email or web address] [facility], [address] [facility] [address], [place], [address], 07/13/2022 11:25:18 Patient TargetsNo targets recorded. Patient InstructionsNo instructions recorded. Reason for Referral None Reported. Results Created Date Observation Date Name Description Value Unit Range Abnormal Flag Note LastModifiedBy Organization Detail LastModifiedTime 07/08/1907/07/2022 CBC AUTO NO DIFF (HEMO GRAM) WBC 11.8 10 4.5-11 .5 high Not Available [facility] (Lab Registration) [address] [place], [address], 07/07/2022 16:35:45 07/08/19 23 07/07/2022 CBC AUTO NO DIFF (HEMO GRAM) RBC 5.26 10 4.25-5 .57 Not Available [facility] (Lab Registration) [address] [place], [address], 07/07/2022 16:35:45 07/08/19 23 07/07/2022 CBC AUTO NO DIFF (HEMO GRAM) HGB 17.0 g/dL 13.5-1 7.2 Not Available [facility] (Lab Registration) [address] [place], [address], 07/07/2022 16:35:45 07/08/19 23 07/07/2022 CBC AUTO NO DIFF (HEMO GRAM) HCT 50.2 % 42.0-5 2.0 Not Available [facility] (Lab Registration) [address] [place], [address], 07/07/2022 16:35:45 07/08/19 23 07/07/2022 CBC AUTO NO DIFF (HEMO GRAM) MCV 95.4 fL 80-95 high Not Available [facility] (Lab Registration) [address] [place], [address], 07/07/2022 16:35:45 07/08/19 23 07/07/2022 CBC AUTO NO DIFF (HEMO GRAM) MCH 32.3 pg 27.0-3 4.0 Not Available [facility] (Lab Registration) [address] [place], [address], 07/07/2022 16:35:45 07/08/19 23 07/07/2022 CBC AUTO NO DIFF (HEMO GRAM) MCHC 33.9 g/dL 32.0-3 6.0 Not Available [facility] (Lab Registration) [address] [place], [address], 07/07/2022 16:35:45 07/08/19 23 07/07/2022 CBC AUTO NO DIFF (HEMO GRAM) platelet count 450 10 150-45 0 Not Available [facility] (Lab Registration) [address] [place], [address], 07/07/2022 16:35:45 07/08/19 23 07/07/2022 CBC AUTO NO DIFF (HEMO GRAM) RDW 14.3 % 12.3-1 5.1 Not Available [facility] (Lab Registration) [address] [place], [address], 07/07/2022 16:35:45 07/08/19 23 07/07/2022 CBC AUTO NO DIFF (HEMO GRAM) MPV 10.0 fL 7.4-10 .4 Not Available [facility] (Lab Registration) [address] [place], [address], 07/07/2022 16:35:45 07/08/19 23 07/07/2022 CBC AUTO NO DIFF (HEMO GRAM) note Unles s other rios noted testi ng perfo rmed at: [facility] [address] [place], [place] [id number] [phone] Tanner weston MD CLIA: [id number] Not Available [facility] (Lab Registration) [address] [place], [address], 07/07/2022 16:35:45 07/08/19 23 07/07/2022 TESTO STERO NE TOTAL note Unles s other rios noted testi ng perfo rmed at: [facility] [address] [place], [place] [address] [phone] Tanner weston MD CLIA: [id number] Not Available [facility] (Lab Registration) [address] [place], [address], 07/11/2022 18:10:00 07/08/19 23 07/11/2022 TESTO STERO NE TOTAL testosterone , serum 205 NG/dL 264-91 6 low Adult male refer ence inter matteo is based on a popul ation of healt hy nonob bette males (BMI <30) betwe en 19 and 39 years old. Tori stanley, et.al . JCEM 2017, 102;1 161-1 173. PMID: 76988 103. Perfo [place]med at: [place] [address] 126 Lab Direc tor: Grady andujar PhD, Phone : [phone] Not Available [facility] (Lab Registration) [address] [place] [place], [address], 07/11/2022 18:10:00 07/08/19 23 07/07/2022 urina lysis , dipst ick Leukocytes (reference range) negati ve Not Available [facility] [place] [address] [place], [address], 07/07/2022 12:32:22 07/08/19 23 07/07/2022 urina lysis , dipst ick Nitrite (reference range:) negati ve Not Available [address], [address], 07/07/2022 12:32:22 07/08/19 23 07/07/2022 urina lysis , dipst ick Urobilinogen (reference range) 0.2 Not Available [address], [address], 07/07/2022 12:32:22 07/08/19 23 07/07/2022 urina lysis , dipst ick Protein (reference range) negati ve Not Available [address], [address], 07/07/2022 12:32:22 07/08/19 23 07/07/2022 urina lysis , dipst ick pH (reference range 5-8.5) 6.5 Not Available [address], [address], 07/07/2022 12:32:22 07/08/19 23 07/07/2022 urina lysis , dipst ick Blood (reference range:) negati ve Not Available [address], [address], 07/07/2022 12:32:22 07/08/19 23 07/07/2022 urina lysis , dipst ick Specific [place] (reference range) 1.010 Not Available [address], [address], 07/07/2022 12:32:22 07/08/19 23 07/07/2022 urina lysis , dipst ick Ketone (reference range) negati ve Not Available [facility] [address] [place], [address], 07/07/2022 12:32:22 07/08/19 23 07/07/2022 urina lysis , dipst ick Bilirubin (reference range) negati ve Not Available [facility] [place] [address] [place], [address], 07/07/2022 12:32:22 07/08/19 23 07/07/2022 urina lysis , dipst ick Glucose (reference range) negati ve Not Available [facility] [place] [address] [place], [address], 07/07/2022 12:32:22 01/06/20 23 01/05/2023 CBC AUTO W DIFF WBC 10.7 10 4.5-11 .5 Not Available [facility] (Lab Registration) [address], [place], [address], 01/05/2023 16:57:01 01/06/20 23 01/05/2023 CBC AUTO W DIFF RBC 4.95 10 4.25-5 .57 Not Available [facility] (Lab Registration) [address], [place], [address], 01/05/2023 16:57:01 01/06/20 23 01/05/2023 CBC AUTO W DIFF HGB 16.3 g/dL 13.5-1 7.2 Not Available [facility] (Lab Registration) [address], [place], [address], 01/05/2023 16:57:01 01/06/20 23 01/05/2023 CBC AUTO W DIFF HCT 48.2 % 42.0-5 2.0 Not Available [facility] (Lab Registration) [address], [place], [address], 01/05/2023 16:57:01 01/06/20 23 01/05/2023 CBC AUTO W DIFF MCV 97.4 fL 80-95 high Not Available [facility] (Lab Registration) [address] [place], [address], 01/05/2023 16:57:01 01/06/20 23 01/05/2023 CBC AUTO W DIFF MCH 32.9 pg 27.0-3 4.0 Not Available [facility] (Lab Registration) [address] [place], [address], 01/05/2023 16:57:01 01/06/20 23 01/05/2023 CBC AUTO W DIFF MCHC 33.8 g/dL 32.0-3 6.0 Not Available [facility] (Lab Registration) [address] [place], [address], 01/05/2023 16:57:01 01/06/20 23 01/05/2023 CBC AUTO W DIFF platelet count 419 10 150-45 0 Not Available [facility] (Lab Registration) [address] [place], [address], 01/05/2023 16:57:01 01/06/2001/05/2023 CBC AUTO W DIFF RDW 15.6 % 12.3-1 5.1 high Not Available [facility] (Lab Registration) [address] [place], [address], 01/05/2023 16:57:01 01/06/2001/05/2023 CBC AUTO W DIFF MPV 9.8 fL 7.4-10 .4 Not Available [facility] (Lab Registration) [address] [place], [address], 01/05/2023 16:57:01 01/06/2001/05/2023 CBC AUTO W DIFF granulocyte% 50.0 % 40-75 Not Available [facility] (Lab Registration) [address] [place], [address], 01/05/2023 16:57:01 01/06/20 23 01/05/2023 CBC AUTO W DIFF lymphocyte% 29.1 % 15-57 Not Available [facility] (Lab Registration) [address], [place], [address], 01/05/2023 16:57:01 01/06/20 23 01/05/2023 CBC AUTO W DIFF monocyte% 16.7 % 4.0-12 .0 high Not Available [facility] (Lab Registration) [address], [place], [address], 01/05/2023 16:57:01 01/06/20 23 01/05/2023 CBC AUTO W DIFF eosinophil% 3.2 % 0.0-4. 0 Not Available [facility] (Lab Registration) [address], [place], [address], 01/05/2023 16:57:01 01/06/20 23 01/05/2023 CBC AUTO W DIFF basophil% 0.6 % 0.0-1. 0 Not Available [facility] (Lab Registration) [address] [place], [address], 01/05/2023 16:57:01 01/06/20 23 01/05/2023 CBC AUTO W DIFF immature granulocytes % 0.4 % 0.0-0. 8 Not Available [facility] (Lab Registration) [address] [place], [address], 01/05/2023 16:57:01 01/06/20 23 01/05/2023 CBC AUTO W DIFF granulocyte# 5.35 10 Not Available [facility] (Lab Registration) [address] [place], [address], 01/05/2023 16:57:01 01/06/2001/05/2023 CBC AUTO W DIFF lymphocyte# 3.10 10 Not Available [facility] (Lab Registration) [address] [place], [address], 01/05/2023 16:57:01 01/06/20 23 01/05/2023 CBC AUTO W DIFF monocyte# 1.78 10 Not Available [facility] (Lab Registration) [address] [place], [address], 01/05/2023 16:57:01 01/06/2001/05/2023 CBC AUTO W DIFF eosinophil# 0.34 10 Not Available [facility] (Lab Registration) [address] [place], [address], 01/05/2023 16:57:01 01/06/20 23 01/05/2023 CBC AUTO W DIFF basophil# 0.06 10 Not Available [facility] (Lab Registration) [address] [place], [address], 01/05/2023 16:57:01 01/06/2001/05/2023 CBC AUTO W DIFF immature granulocytes # 0.04 10 Not Available [facility] (Lab Registration) [address] [place], [address], 01/05/2023 16:57:01 01/06/2001/05/2023 CBC AUTO W DIFF manual differential NO Not Available [facility] (Lab Registration) [address] [place], [address], 01/05/2023 16:57:01 01/06/2001/05/2023 CBC AUTO W DIFF note Unles s other rios noted testi ng perfo rmed at: [facility] [address] [place] [address] [phone] Tanner weston MD CLIA: [id number] Not Available [facility] (Lab Registration) [address] [place], [address], 01/05/2023 16:57:01 01/06/2001/05/2023 PROST ATE SPECI FIC AG (PSA) prostate specific Ag (PSA) 3.48 NG/mL 0.0-4. 0 Not Available [facility] (Lab Registration) [address] [place], [address], 01/05/2023 17:10:09 01/06/20 23 01/05/2023 PROST ATE SPECI FIC AG (PSA) note Unles s other rios noted testi ng perfo rmed at: [facility] [address] [place] [address] [phone] Tanner weston MD CLIA: [id number] Not Available [facility] (Lab Registration) [address], [place], [address], 01/05/2023 17:10:09 01/06/20 23 01/05/2023 TESTO STERO NE TOTAL note Unles s other rios noted testi ng perfo rmed at: [facility] [address] [place] [address] [phone] Tanner weston MD CLIA: [id number] Not Available [facility] (Lab Registration) [address], [place], [address], 01/07/2023 09:14:17 01/06/2001/07/2023 TESTO STERO NE TOTAL testosterone , serum 676 NG/dL 264-91 6 Adult male refer ence inter matteo is based on a popul ation of healt hy nonob bette males (BMI <30) betwe en 19 and 39 years old. Tori stanley, et.al . JCEM 2017, 102;1 161-1 173. PMID: 00317 103. Perfo rmed at: [facility] [address] [place] [address] Lab Direc tor: Grady andujar PhD, Phone : [phone] Not Available [facility] (Lab Registration) [address], [place], [address], 01/07/2023 09:14:17 01/06/20 23 01/05/2023 TESTO STERO NE FREE note Unles s other rios noted testi ng perfo rmed at: [facility] [address] [place] [address] [phone] Tanner weston MD CLIA: [id number] Not Available [facility] (Lab Registration) [address] [place], [address], 01/14/2023 03:38:03 01/06/20 23 01/14/2023 TESTO STERO NE FREE free testosterone (direct) 17.1 pg/mL 7.2-24 .0 Perfo rmed at: [facility] [place] [address] [facility] , [place] [address] Lab Direc tor: Eva kumari MD, Phone : [phone] SENT TO REFER ENCE LAB Not Available [facility] (Lab Registration) [address] [place], [address], 01/14/2023 03:38:03 09/07/19 24 09/07/2023 CBC AUTO W DIFF WBC 22.6 10 4.5-11 .5 high Not Available [facility] (Lab Registration) [address] [place], [address], 09/07/2023 16:56:15 09/07/19 24 09/07/2023 CBC AUTO W DIFF RBC 5.10 10 4.25-5 .57 Not Available [facility] (Lab Registration) [address] [place], [address], 09/07/2023 16:56:15 09/07/19 24 09/07/2023 CBC AUTO W DIFF HGB 16.6 g/dL 13.5-1 7.2 Not Available [facility] (Lab Registration) [address] [place], [address], 09/07/2023 16:56:15 09/07/19 24 09/07/2023 CBC AUTO W DIFF HCT 49.3 % 42.0-5 2.0 Not Available [facility] (Lab Registration) [address] [place], [address], 09/07/2023 16:56:15 09/07/19 24 09/07/2023 CBC AUTO W DIFF MCV 96.7 fL 80-95 high Not Available [facility] (Lab Registration) [address] [place], [address], 09/07/2023 16:56:15 09/07/19 24 09/07/2023 CBC AUTO W DIFF MCH 32.5 pg 27.0-3 4.0 Not Available [facility] (Lab Registration) [address] [place], [address], 09/07/2023 16:56:15 09/07/19 24 09/07/2023 CBC AUTO W DIFF MCHC 33.7 g/dL 32.0-3 6.0 Not Available [facility] (Lab Registration) [address] [place], [address], 09/07/2023 16:56:15 09/07/19 24 09/07/2023 CBC AUTO W DIFF platelet count 455 10 150-45 0 high Not Available [facility] (Lab Registration) [address] [place], [address], 09/07/2023 16:56:15 09/07/19 24 09/07/2023 CBC AUTO W DIFF RDW 13.6 % 12.3-1 5.1 Not Available [facility] (Lab Registration) [address] [place], [address], 09/07/2023 16:56:15 09/07/19 24 09/07/2023 CBC AUTO W DIFF MPV 9.0 fL 7.4-10 .4 Not Available [facility] (Lab Registration) [address] [place], [address], 09/07/2023 16:56:15 09/07/19 24 09/07/2023 CBC AUTO W DIFF granulocyte% 84.0 % 40-75 high Not Available [facility] (Lab Registration) [address] [place], [address], 09/07/2023 16:56:15 09/07/19 24 09/07/2023 CBC AUTO W DIFF lymphocyte% 7.5 % 15-57 low Not Available [facility] (Lab Registration) [address] [place], [address], 09/07/2023 16:56:15 09/07/19 24 09/07/2023 CBC AUTO W DIFF monocyte% 7.9 % 4.0-12 .0 Not Available [facility] (Lab Registration) [address] [place], [address], 09/07/2023 16:56:15 09/07/19 24 09/07/2023 CBC AUTO W DIFF eosinophil% 0.1 % 0.0-4. 0 Not Available [facility] (Lab Registration) [address] [place], [address], 09/07/2023 16:56:15 09/07/19 24 09/07/2023 CBC AUTO W DIFF basophil% 0.1 % 0.0-1. 0 Not Available [facility] (Lab Registration) [address] [place], [address], 09/07/2023 16:56:15 09/07/19 24 09/07/2023 CBC AUTO W DIFF immature granulocytes % 0.4 % 0.0-0. 8 Not Available [facility] (Lab Registration) [address] [place], [address], 09/07/2023 16:56:15 09/07/19 24 09/07/2023 CBC AUTO W DIFF granulocyte# 18.94 10 Not Available [facility] (Lab Registration) [address] [place], [address], 09/07/2023 16:56:15 09/07/19 24 09/07/2023 CBC AUTO W DIFF lymphocyte# 1.69 10 Not Available [facility] (Lab Registration) [address] [place], [address], 09/07/2023 16:56:15 09/07/19 24 09/07/2023 CBC AUTO W DIFF monocyte# 1.79 10 Not Available [facility] (Lab Registration) [address], [place], [address], 09/07/2023 16:56:15 09/07/19 24 09/07/2023 CBC AUTO W DIFF eosinophil# 0.03 10 Not Available [facility] (Lab Registration) [address] [place], [address], 09/07/2023 16:56:15 09/07/19 24 09/07/2023 CBC AUTO W DIFF basophil# 0.03 10 Not Available [facility] (Lab Registration) [address] [place], [address], 09/07/2023 16:56:15 09/07/19 24 09/07/2023 CBC AUTO W DIFF immature granulocytes # 0.09 10 Not Available [facility] (Lab Registration) [address] [place], [address], 09/07/2023 16:56:15 09/07/19 24 09/07/2023 CBC AUTO W DIFF manual differential NO Not Available [facility] (Lab Registration) [address] [place], [address], 09/07/2023 16:56:15 09/07/19 24 09/07/2023 CBC AUTO W DIFF note Unles s other rios noted testi ng perfo rmed at: [facility] [address] [facility] [address] [place] [address] [phone] Tanner weston MD CLIA: [id number] Not Available [facility] (Lab Registration) [address] [place], [address], 09/07/2023 16:56:15 09/07/19 24 09/07/2023 TESTO STERO NE FREE note Unles s other rios noted testi ng perfo rmed at: [facility] [address] [place] [address] [phone] Tanner weston MD CLIA: [id number] Not Available [facility] (Lab Registration) [address] [place], [address], 09/13/2023 20:11:13 09/07/19 24 09/13/2023 TESTO STERO NE FREE free testosterone (direct) 2.7 pg/mL 7.2-24 .0 low Perfo rmed at: [facility] [place] [address] [facility] , [place] [address] Lab Direc tor: Eva kumari MD, Phone : [phone] SENT TO REFER ENCE LAB Not Available [facility] (Lab Registration) [address] [place], [address], 09/13/2023 20:11:13 03/07/20 24 03/07/2024 CBC AUTO NO DIFF (HEMO GRAM) WBC 12.5 10 4.5-11 .5 high Not Available [facility] (Lab Registration) [address] [place], [address], 03/07/2024 17:17:17 03/07/20 24 03/07/2024 CBC AUTO NO DIFF (HEMO GRAM) RBC 5.45 10 4.25-5 .57 Not Available [facility] (Lab Registration) [address] [place], [address], 03/07/2024 17:17:17 03/07/20 24 03/07/2024 CBC AUTO NO DIFF (HEMO GRAM) HGB 17.8 g/dL 13.5-1 7.2 high Not Available [facility] (Lab Registration) [address] [place], [address], 03/07/2024 17:17:17 03/07/20 24 03/07/2024 CBC AUTO NO DIFF (HEMO GRAM) HCT 53.4 % 42.0-5 2.0 high Not Available [facility] (Lab Registration) [address] [place], [address], 03/07/2024 17:17:17 03/07/20 24 03/07/2024 CBC AUTO NO DIFF (HEMO GRAM) MCV 98.0 fL 80-95 high Not Available [facility] (Lab Registration) [address] [place], [address], 03/07/2024 17:17:17 03/07/20 24 03/07/2024 CBC AUTO NO DIFF (HEMO GRAM) MCH 32.7 pg 27.0-3 4.0 Not Available [facility] (Lab Registration) [address] [place], [address], 03/07/2024 17:17:17 03/07/20 24 03/07/2024 CBC AUTO NO DIFF (HEMO GRAM) MCHC 33.3 g/dL 32.0-3 6.0 Not Available [facility] (Lab Registration) [address] [place], [address], 03/07/2024 17:17:17 03/07/20 24 03/07/2024 CBC AUTO NO DIFF (HEMO GRAM) platelet count 363 10 150-45 0 Not Available [facility] (Lab Registration) [address] [place], [address], 03/07/2024 17:17:17 03/07/20 24 03/07/2024 CBC AUTO NO DIFF (HEMO GRAM) RDW 14.2 % 12.3-1 5.1 Not Available [facility] (Lab Registration) [address] [place], [address], 03/07/2024 17:17:17 03/07/20 24 03/07/2024 CBC AUTO NO DIFF (HEMO GRAM) MPV 10.2 fL 7.4-10 .4 Not Available [facility] (Lab Registration) [address] [place], [address], 03/07/2024 17:17:17 03/07/20 24 03/07/2024 CBC AUTO NO DIFF (HEMO GRAM) note Unles s other rios noted testi ng perfo rmed at: [facility] [address] [place] [phone] Tanner weston MD CLIA: [id number] Not Available [facility] (Lab Registration) [address], [place], [address], 03/07/2024 17:17:17 03/07/20 24 03/07/2024 PROST ATE SPECI FIC AG (PSA) prostate specific Ag (PSA) 2.32 NG/mL 0.0-4. 0 Not Available [facility] (Lab Registration) [address] [place], [address], 03/07/2024 17:46:10 03/07/20 24 03/07/2024 PROST ATE SPECI FIC AG (PSA) note Unles s other rios noted testi ng perfo rmed at: [facility] [address] [place] [phone] Tanner weston MD CLIA: [id number] Not Available [facility] (Lab Registration) [address] [place], [address], 03/07/2024 17:46:10 03/07/20 24 03/07/2024 TESTO STERO NE TOTAL note Unles s other rios noted testi ng perfo rmed at: [facility] [address] [place] [phone] Tanner weston MD CLIA: [id number] Not Available [facility] (Lab Registration) [address] [place], [address], 03/08/2024 11:15:22 03/07/20 24 03/08/2024 TESTO STERO NE TOTAL testosterone , serum 134 NG/dL 264-91 6 low Adult male refer ence inter matteo is based on a popul ation of healt hy nonob bette males (BMI <30) betwe en 19 and 39 years old. Tori stanley, et.al . JCEM 2017, 102;1 161-1 173. PMID: 48145 103. Perfo rmed at: [facility] [address] [facility], [place] [id number] Lab Direc tor: Grady andujar PhD, Phone : [phone] Not Available [facility] (Lab Registration) [address], [place], [address], 03/08/2024 11:15:22 03/07/20 24 03/07/2024 TESTO STERO NE FREE note Unles s other rios noted testi ng perfo rmed at: [facility] [place] [address] [phone] Tanner weston MD CLIA: [id number] Not Available [facility] (Lab Registration) [address], [place], [address], 03/11/2024 06:43:43 03/07/20 24 03/11/2024 TESTO STERO NE FREE free testosterone (direct) 3.6 pg/mL 7.2-24 .0 low Perfo rmed at: - [facility] [place] [facility] [address] [facility] [place] [address] Lab Direc tor: Eva kumari MD, Phone : [phone] SENT TO REFER ENCE LAB Not Available [facility] (Lab Registration) [address] [place], [address], 03/11/2024 06:43:43 03/07/20 24 03/07/2024 ESTRA DIOL note Unles s other rios noted testi ng perfo rmed at: [facility], [place] [address] [phone] Tanner weston MD CLIA: [id number] Not Available [facility] (Lab Registration) [address] [place], [address], 03/13/2024 13:09:49 03/07/20 24 03/13/2024 ESTRA DIOL estradiol, sensitive TNP pg/mL Speci men Comme nt: Test( s) 60913 0-Est radio l, Sensi tive Speci men [...] at: - [facility] [place] [address] [facility] [place] [address] Lab Direc tor: Eva kumari MD, Phone : [phone] SENT TO REFER ENCE LAB Not Available [facility] (Lab Registration) [address] [place], [address], 03/13/2024 13:09:49 09/06/19 25 09/05/2024 CBC AUTO NO DIFF (HEMO GRAM) WBC 10.6 10 4.5-11 .5 Not Available [facility] (Lab Registration) [address] [place], [address], 09/05/2024 16:58:39 09/06/19 25 09/05/2024 CBC AUTO NO DIFF (HEMO GRAM) RBC 6.11 10 4.25-5 .57 high Not Available [facility] (Lab Registration) [address] [place], [address], 09/05/2024 16:58:39 09/06/19 25 09/05/2024 CBC AUTO NO DIFF (HEMO GRAM) HGB 19.9 g/dL 13.5-1 7.2 high Not Available [facility] (Lab Registration) [address] [place], [address], 09/05/2024 16:58:39 09/06/19 25 09/05/2024 CBC AUTO NO DIFF (HEMO GRAM) HCT 60.1 % 42.0-5 2.0 critical high Not Available [facility] (Lab Registration) [address] [place], [address], 09/05/2024 16:58:39 09/06/19 25 09/05/2024 CBC AUTO NO DIFF (HEMO GRAM) MCV 98.4 fL 80-95 high Not Available [facility] (Lab Registration) [address] [place], [address], 09/05/2024 16:58:39 09/06/19 25 09/05/2024 CBC AUTO NO DIFF (HEMO GRAM) MCH 32.6 pg 27.0-3 4.0 Not Available [facility] (Lab Registration) [address] [place], [address], 09/05/2024 16:58:39 09/06/19 25 09/05/2024 CBC AUTO NO DIFF (HEMO GRAM) MCHC 33.1 g/dL 32.0-3 6.0 Not Available [facility] (Lab Registration) [address] [place], [address], 09/05/2024 16:58:39 09/06/19 25 09/05/2024 CBC AUTO NO DIFF (HEMO GRAM) platelet count 376 10 150-45 0 Not Available [facility] (Lab Registration) [address] [place], [address], 09/05/2024 16:58:39 09/06/19 25 09/05/2024 CBC AUTO NO DIFF (HEMO GRAM) RDW 14.0 % 12.3-1 5.1 Not Available [facility] (Lab Registration) [address] [place], [address], 09/05/2024 16:58:39 09/06/19 25 09/05/2024 CBC AUTO NO DIFF (HEMO GRAM) MPV 9.8 fL 7.4-10 .4 Not Available [facility] (Lab Registration) [address] [place], [address], 09/05/2024 16:58:39 09/06/19 25 09/05/2024 CBC AUTO NO DIFF (HEMO GRAM) note Unles s other rios noted testi ng perfo rmed at: [facility] [address] [place] [address] [phone] Tanner weston MD CLIA: [id number] Not Available [facility] (Lab Registration) [address] [place], [address], 09/05/2024 16:58:39 09/06/19 25 09/05/2024 TESTO STERO NE FREE/ TOT EQUIL IB note Unles s other rios noted testi ng perfo rmed at: [facility] [address] [place] [address] [phone] Tanner weston MD CLIA: [id number] Not Available [facility] (Lab Registration) [address] [place], [address], 09/11/2024 12:12:01 09/06/1909/11/2024 TESTO STERO NE FREE/ [...] . JCEM 2017, 102;1 161-1 173. PMID: 29491 103. Not Available [facility] (Lab Registration) [address] , [place], [address], 09/11/2024 12:12:01 09/06/19 25 09/11/2024 TESTO STERO NE FREE/ TOT EQUIL IB testosterone , free 39.98 NG/dL 5.00-2 1.00 high Not Available [facility] (Lab Registration) [address] , [place], [address], 09/11/2024 12:12:01 09/06/1909/11/2024 TESTO STERO NE FREE/ TOT EQUIL IB % free PSA 3.91 % 1.50-4 .20 Perfo rmed at: - [facility] [place] [address] [facility] , [place] [address] Lab Direc tor: Eva kumari MD, Phone : [phone] Not Available [facility] (Lab Registration) [address], [place], [address], 09/11/2024 12:12:01 09/06/1909/05/2024 ESTRA DIOL note Unles s other rios noted testi ng perfo rmed at: [facility] [address] [facility] [address] [place] [address] [phone] Tanner weston MD CLIA: [id number] Not Available [facility] (Lab Registration) [address], [place], [address], 09/12/2024 19:11:23 09/06/1909/12/2024 ESTRA DIOL estradiol, sensitive 76.1 pg/mL 8.0-35 .0 high Speci men Comme nt: Test( s) 59006 0-Est radio l, Sensi tive Speci men Comme nt: was devel oped and its perfo rmanc e devan cte risti cs Speci men Comme nt: deter mined by [employer]. It has not been kate ared or appro jennifer Speci men Comme nt: by the Food and Drug Admin istra tion. Metho dolog y: Liqui d chrom atogr aphy tande m mass spect romet ry(LC /MS/M S) Perfo rmed at: [facility] [place] [address] , [place] [address] Lab Direc tor: Eva kumari MD, Phone : [phone] Not Available [facility] (Lab Registration) [address] , [place], [address], 09/12/2024 19:11:23 Result Notes None recorded. Problems Name Problem SNOMED Code Status Onset Date Resolution Date Notes Provider Name and Address Organization Details Recorded Time Hypertensive disorder 42723762 Active 2022 Nadia Gaytan null, [place] [facility] [place] [facility] [place] 3 10:24:28 Environmental allergy 639108797 Active 2022 Nadia Aguilarant [place], [place] [facility] [place] 3 10:24:36 Sleep apnea 30907484 Active 2022 Nadia Aguilarant [place], [place] [facility] [place] 3 10:24:47 Arthritis 8577654 Active 2022 Nadia Aguilarant null, [place] [facility] [place] 3 10:24:56 Problem Notes None recorded. Procedures Surgical History Date Name Laterality Status Provider Name and Address Organization Details Recorded Time nose excision completed Nadia Aguilarant [place] [facility] [place] 07/07/2022 10:25:30 Hernia Repair completed Nadia Lukas [place] [facility] [place] 07/07/2022 10:25:42 tonsilectomy/a denoids completed Nadia Lukas [place] [facility] [place] 07/07/2022 10:26:06 Imaging Results None recorded. Procedure Notes None recorded. Medical Equipment None Reported. Allergies No known drug allergies Medications Name Sig Start Date Stop Date Status Note LastModified by Organization Details LastModified Time mixing jar, stir stick and spatula 1OZ OINTMENT JAR, MIXING STICK, SPATULA 09/05 completed Not Available Not Available Not Available clindamycin /mupirocin/ itraconazol e 150/20/50mg topical capsule [56824] MIX THE CONTENTS OF 1 CAPSULE WITH DILUENT. APPLY TO AFFECTED AREAS. PERFORM TWICE DAILY. FOLLOW WITH OINTMENT. active Not Available Not Available No t Available urea/fluoci nonide 20/ 0.05% cream [81211] APPLY UP TO 4 GRAMS TO AFFECTED [...] Updated DateTime 07/07/2022 177.8 cm 32.4 kg/m2 195439.88 g Nadia Gaytan [facility] & [place] 07/07/2022 10:19:29 Date Recorded Body height Body mass index (BMI) Body weight Body temperature Provider Name and Address Organization Details Last Updated DateTime 09/05/2024 177.8 cm 39.5 kg/m2 704924.9 g 98.1 [degF] Carmelo Rosenberg [facility] & [place] 09/05/2024 13:04:35 Date Recorded Body height Body mass index (BMI) Body weight Provider Name and Address Organization Details Last Updated DateTime 09/07/2023 177.8 cm 32.4 kg/m2 125725.88 g Nadia Gaytan [facility] & [place] 09/07/2023 13:45:43 Date Recorded Body height Body weight Body temperature Provider Name and Address Organization Details Last Updated DateTime 01/05/2023 177.8 cm 788292.88 g 98 [degF] Aster Bender [facility] & [place] 01/05/2023 10:43:26 Date Recorded Body height Body mass index (BMI) Body weight Body temperature Provider Name and Address Organization Details Last Updated DateTime 03/07/2024 177.8 cm 32.4 kg/m2 707177.88 g 98.1 [degF] Ruth Lipscomb [facility] & [place] 03/07/2024 13:54:32 Social History None recorded. Functional Status None recorded. Mental Status None recorded. Family History Relationship Description Onset Age of this Age Resolved Age Notes LastModified by Organization Details LastModified Time Father No current problems or disability [email or web address] Not available 06/26 10:25:06 Mother No current problems or disability [email or web address] Not available 06/26 10:25:06 Medical History No medical history recorded. Past Encounters Encounter ID Performer Location Encounter Start Date Encounter Closed Date Diagnosis/Indication Diagnosis SNOMED-CT Code Diagnosis ICD10 Code Diagnosis IMO Codes Diagnosis Note [id number] Yusuf Patel Jr, MD [facility] [address] [address] 07/07/2022 09:57:06 07/07/2022 11:05:58 Testosterone level below reference range 000237549 R89.1 Patient with history of testostero ne deficiency . He presents for transfer of care regarding his urologic problems today. He has been on testostero ne cypionate 4 mg with good results. We will refill for him today. We will check surveillan ce labs. Erectile dysfunction 860 418349 F52.21 patient with history of erectile dysfunctio n. He continues to take 60-100 mg of sildenafil p.r.n. with good results. [id number] Yusuf Patel Jr, MD [facility] [place] [address] 5 01/05/2023 09:45:39 01/05/2023 11:34:21 Testosterone level below reference range 527560240 R89.1 Patient with history of testostero ne deficiency . He has been on testostero ne cypionate 400 mg q 3 wks with good results. We will refill for him today. We will check surveillan ce labs. Erectile dysfunction 860 734011 F52.21 patient with history of erectile dysfunctio n. He continues to take 60-100 mg of sildenafil p.r.n. with good results. Screening for malignant neoplasm of prostate 564374267 Z12.5 PSA to be drawn today. 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 Continue testostero ne cypionate 400 mg every 3 weeks. Check surveillan ce labs today. Erectile dysfunction 860 399238 F52.21 patient with history of erectile dysfunctio n. He continues to take 60-100 mg of sildenafil p.r.n. with good results Although has not been sexually active since his surgery. Screening for malignant neoplasm of prostate 947782707 Z12.5 P PSA was 3.4 in December. We will recheck at his next visit. [id number] Yusuf Patel Jr, MD [facility] [address] [id number] 03/07/2024 13:34:05 03/07/2024 14:10:59 Testosterone level below reference range 858667128 R89.1 Patient with history of testostero ne [...] midcycle. Screening for malignant neoplasm of prostate 492912318 Z12.5 P PSA was 3.4 in December 2022. We will repeat today. Erectile dysfunction 860 436709 F52.21 patient with history of erectile dysfunctio n. He continues to take 60-100 mg of sildenafil p.r.n. with good results . We will refill today. 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 Testostero ne levels were low on 400 mg every 3 weeks. We discussed increasing is regimen and will go to 200 mg every week. Erectile dysfunction 860 480359 N52.9 [id number] patient with history of erectile dysfunctio n. He continues to take 60-100 mg of sildenafil p.r.n. with good results . We will refill today. Screening for malignant neoplasm of prostate 545521789 Z12.5 [id number] patient's PSA was 2.3 in February 2024. He was reassured and will recheck at his next visit. Secondary polycythemia 48222177 D75.1 [id number] patient with history of secondary polycythem ia [...] Knox Member ID Guarantor Name 09/05/2024 2 MEDICAID-CO [employer] [facility] CHO[facility] - FFS/TRADITIO NAL Yusuf Cooper [id number] Yusuf Cooper 09/14/2024 1 [employer] - DUAL COMPLETE (MEDICARE REPLACEMENT/ ADVANTAGE - HMO) [id number] Yusuf Cooper [id number] Yusuf Cooper 09/05/2024 1 AETNA [facility] (MEDICAID HMO) Yusuf Cooper [id number] Yusuf Kenneth Notes Date Note Type Note Provider Name and Address Organization Details Recorded Time 07/07/2022 text/html patient is a 51-year-old white male with a history of testosterone deficiency. He also has erectile dysfunction. He was previously seen at [facility]. He comes to the [facility] today for transfer of care. I [...] p.r.n. good results. Yusuf Patel Jr, MD [address] [place] [address], [address], [place], [address], [place] [facility] [place] 07/07/2022 15:17:54 01/05/2023 text/html ROS as noted [...] of 3 weeks. Patient has seen a shock absorption floor layer about his polycythemia and he was also diagnosed with sleep apnea which can cause the condition. She had no other recommendations other than therapeutic phlebotomy.Patient with history of erectile dysfunction and continues to take sildenafil with good results. Yusuf Patel Jr, MD [address] [place] [address], [address], [place], [address], [facility] & [place] 01/05/2023 12:51:34 09/07/2023 text/html ROS as noted [...] cuff surgery. Yusuf Patel Jr, MD [address], [address], [place], [address], [facility] & [place] 09/07/2023 14:19:17 03/07/2024 text/html ROS as noted [...] for treatment. Yusuf Patel Jr, MD [address] [facility], [address], [place], [address], [facility] [place] 03/07/2024 16:11:45 09/05/2024 text/html ROS as noted [...] as needed. Yusuf Patel Jr, MD [address], [address], [place], [address], [place] [facility] & [place] 09/12/2024 23:09:49
--- OUTSIDE RECORDS SUMMARY | 2025-01-29 12:35 | XMS_ITS | Clinical Summary ---
Author Organization [facility] Address [address] [place] [address] Care Team Providers Care Fire Prevention Inspector Name Role Phone Anatoliy Coyne MD Primary Care Provider [phone] Allergies No known active allergies Medications amLODIPine (Norvasc) 5 MG tablet Take by mouth every night. Active HYDROcodone-ac etaminophen ([place]) 7.5-325 MG tablet Take by mouth 2 [...] each day. 3 Active HM Saline Nasal [place] 0.65 % nasal spray Administer into each [...] 11/10/2016 Sigmoidoscopy 11/10/2016 [facility]-Colorectal Cancer Screening 11/10/2016 [id number] Vaccine (3 - Moderna risk series) 01/23/2021 [...] IMG CT PROCEDURES Final Re sult * [place] Hepatitis C Antibody (09/09/2018 12:31 AM EDT) [place] Hepatitis C Ab NEGATIVE Reference Range: Negative SUNQUEST 09/09/2018 12:3 1 AM EDT 09/09/2018 12:38 AM EDT Yosvany Baca MD LAB BLOOD ORDERABLES Final Result SUNQUEST from Last 3 Months or Most Recently Relevant to Health Maintenance Insurance AETNA [facility] MEDICAID Care Teams Fire Prevention Inspector Relationship Specialty Start Date End Date Anatoliy Coyne MD [address] [place] [address] PCP - General 01/28/23
--- OUTSIDE RECORDS SUMMARY | 2025-01-29 12:36 | XMS_ITS | Encounter Summary ---
Author Organization Healthcare Address [address] [place] [address] Care Team Providers Care Wire Products Inspector Name Role Phone Ewa Sandy APRN Primary Care Provider + [phone] Anatoliy Coyne MD Primary Care Provider + [phone] Encounter Details Date Type Department Care Team (Late st Contact Info) Description 12/30/2022 Orders Only External Location [address] [place] [address] Provider, External Social History Tobacco Use Types [...] on filedocumented in this encounter Care Teams Wire Products Inspector Relationship Specialty Start Date End Date Ewa Sandy APRN [address] [place] [address] PCP - General 08/08/20 01/27/23 Anatoliy Coyne MD [address] [place] [address] PCP - General 01/28/23 documented as of this encounter
--- OUTSIDE RECORDS SUMMARY | 2025-01-29 12:36 | XMS_ITS | Encounter Summary ---
Author Organization Healthcare Address [address] [place] [address] Care Team Providers Care Tape Making Machine Operator Name Role Phone Ewa Sandy APRN Primary Care Provider + [phone] Anatoliy Coyne MD Primary Care Provider + [phone] Encounter Details Date Type Department Care Team (Late st Contact Info) Description 09/13/2018 Orders Only External Location [address] [place] [address] Provider, External Social History Tobacco Use Types [...] on filedocumented in this encounter Care Teams Tape Making Machine Operator Relationship Specialty Start Date End Date Ewa Sandy APRN [address] [place] [address] PCP - General 08/08/20 01/27/23 Anatoliy Coyne MD [address] [facility] [place] [address] PCP - General 01/28/23 documented as of this encounter
--- OUTSIDE RECORDS SUMMARY | 2025-01-29 12:36 | XMS_ITS | Encounter Summary ---
Author Organization Healthcare Address [address] [place] [address] Care Team Providers Care Instrument Repairer Helper Name Role Phone Ewa Sandy APRN Primary Care Provider + [phone] Anatoliy Coyne MD Primary Care Provider + [phone] Encounter Details Date Type Department Care Team (Late st Contact Info) Description 09/13/2018 Orders Only External Location [address] [place] [address] Provider, External Social History Tobacco Use Types [...] filedocumented in this encounter Care Teams Instrument Repairer Helper Relationship Specialty Start Date End Date Ewa Sandy APRN [address] [place] [address] PCP - General 08/08/20 01/27/23 Anatoliy Coyne MD [address] [facility] [place] [address] PCP - General 01/28/23 documented as of this encounter
--- OUTSIDE RECORDS SUMMARY | 2025-01-29 12:36 | XMS_ITS | Encounter Summary ---
Author Organization Healthcare Address [address] [place] [address] Care Team Providers Care Glass Checker Name Role Phone Ewa Sandy APRN Primary Care Provider [phone] Anatoliy Coyne MD Primary Care Provider [phone] Encounter Details Date Type Department Care Team (Late st Contact Info) Description 06/18/2022 Orders Only External Location [address] [place] [address] Anatoliy Coyne MD [address] [place] [address] Social History Tobacco Use Types Packs/Day Years [...] on filedocumented in this encounter Care Teams Glass Checker Relationship Specialty Start Date End Date Ewa Sandy APRN [address] [place] [address] PCP - General 08/08/20 01/27/23 Anatoliy Coyne MD [address] [place] [address] [place] [address] PCP - General 01/28/23 documented as of this encounter
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
--- NOTE | 2025-01-29 12:37 | PC.NURSE ---
1237-collected labs via venipuncture stick in left ac with butterfly needle
--- OUTSIDE RECORDS SUMMARY | 2025-01-29 12:37 | XMS_ITS | Encounter Summary ---
Author Organization Healthcare Address [address] [place] [address] Care Team Providers Care Commercial Sales Director Name Role Phone Ewa Sandy APRN Primary Care Provider + [phone] Anatoliy Coyne MD Primary Care Provider + [phone] Encounter Details Date Type Department Care Team (Late st Contact Info) Description 09/13/2018 Orders Only External Location [address] [place] [address] Provider, External Social History Tobacco Use Types [...] on filedocumented in this encounter Care Teams Commercial Sales Director Relationship Specialty Start Date End Date Ewa Sandy APRN [address] [place] [address] PCP - General 08/08/20 01/27/23 Anatoliy Coyne MD [address] [facility] [place] [address] PCP - General 01/28/23 documented as of this encounter
--- OUTSIDE RECORDS SUMMARY | 2025-01-29 12:37 | XMS_ITS | Encounter Summary ---
Author Organization Healthcare Address [address] [place] [address] Care Team Providers Care Assurance Engineer Name Role Phone Anatoliy Coyne MD Primary Care Provider [phone] Encounter Details Date Type Department Care Team ([facility] st Contact Info) Description 04/13/2023 Orders Only External Location [address] [place] [address] Provider, External Social History Tobacco Use Types [...] documented as of this encounter Care Teams Assurance Engineer Relationship Specialty Start Date End Date Anatoliy Coyne MD [address] [place] [address] PCP - General 01/28/23 documented as of this encounter
--- OUTSIDE RECORDS SUMMARY | 2025-01-29 12:37 | XMS_ITS | Encounter Summary ---
Author Organization Healthcare Address [address] [place] [address] Care Team Providers Care Fleet Assistant Name Role Phone Anatoliy Coyne MD Primary Care Provider Encounter Details Date Type Department Care Team ([facility] st Contact Info) Description 03/25/2023 Orders Only External Location [address] [place] [address] Provider, External Social History Tobacco Use Types [...] documented as of this encounter Care Teams Fleet Assistant Relationship Specialty Start Date End Date Anatoliy Coyne MD [address] [place] [address] PCP - General 01/28/23 documented as of this encounter
[2025-01-29 12:46] LABS: Hematocrit 54.8 % (42.0-52.0); Hemoglobin 18.0 g/dL (14.1-18.0)
[2025-01-29 13:13] VITALS: BP 143/103; PULSE 100; RESP 18; O2SAT 94
[2025-01-29 13:55] VITALS: BP 140/82; PULSE 93; RESP 18; O2SAT 95
== END 2025-01-29 23:59 | disposition home or self-care (01) ==
LOC: INF 12:34
PROVIDERS: PCP Nurse Practitioner Family; Visit Provider Urology
DX: D75.1 Secondary polycythemia (principal)
CPT/HCPCS: 36415; 85014; 85018

== ENCOUNTER 2025-02-13 13:03 | Outpatient (CLI) | payer MEDICARE, MEDICAID, SELFPAY ==
[2025-02-13 13:34] LABS: Hematocrit 57.8 % (42.0-52.0); Immature Granulocytes % 0.4 %; Mean Corpuscular HGB Conc 32.2 g/dL (31.8-35.4); Mean Corpuscular Hemoglobin 28.2 pg (27.0-31.2); Mean Corpuscular Volume 87.7 fl (80-94); Nucleated Red Blood Cells % 0 %; Platelet Count 511 K/mm3 (142-424); Red Blood Count 6.59 M/mm3 (4.60-6.20); Red Cell Distribution Width-SD 45.1 fL; White Blood Count 12.9 K/mm3 (4.8-10.8)
[2025-02-13 13:45] LABS: Hemoglobin 18.5 g/dL (14.1-18.0)
--- OUTSIDE RECORDS SUMMARY | 2025-02-13 14:05 | XMS_ITS | Data Portability ---
Author Organization [facility] Address [address] [place] [address] Care Team Providers Care Brickmason Apprentice Name Role Phone KASSY ARMAS Primary Care Provider [phone] KASSY ARMAS Referring Provider Assessment Encounter Date [...] any recent The primary care physician prescribes [place] and gabapentin. He is status post ORIF [...] to understand. The primary care physician prescribes [place] and gabapentin. He is status post ORIF [...] future without sedation per the patient's request. [email or web address] Not available 09/08/2022 17:34:09 2022 2022 Interval [...] this patient. The primary care physician prescribes [place] and gabapentin. He is status post ORIF surgery for the right hip. Injections; 10/07/2022 #1 TF-SHREINE Left L4/5, L5/S1; 50% pain relief 07/07/2022 [...] in counseling and coordination of his care. [email or web address] Not available 2022 15:40:32 Plan of Treatment Reminders Order Date Submit Date Provider Last Modified By Organization Details Last Modified Time Details Appointments None recorded. Lab None recorded. Referral orthopedic spine surgeon referral 2022 023 [email or web address], [address], [address], [place], [address], 3 14:19:29 Procedures intra-artic ular injection, shoulder [...] By Organization Details Last Modified Time 06/11/2022 [id number] neck pain: care instructions Not available 06/11/2022 [...] Details Recorded Time Osteoarthr itis of hip 744797368 Active 2020 JUAN ALBERTO Khan [address] [place] [address], [address] , [facility]ly [facility] 3 16:03:18 Pain of left shoulder joint 3343142533764 9109 Active 2021 JUAN ALBERTO Khan [address] [place] [address], [address] , [facility] 3 16:03:20 Ulnar nerve entrapment at elbow 005599239 Active 2022 JUAN ALBERTO Khan [address] [place] [address], [address] , [facility] 3 16:03:24 Bilateral lateral elbow tendinopat hy 5386379011737 9108 Active 2022 JUAN ALBERTO Khan [address] [place] [address], [address] , [facility] 3 16:03:13 Neck pain 59985740 Active 2022 YANIV REYES NP [address] [place] [address], [address] , [facility] 3 11:45:37 Inflammati on of joint of shoulder region 424025790 Active 2022 YANIV REYES NP [address] [place] [address], [address] , [place] [facility] 3 12:45:03 Lumbar radiculopa thy 206979500 Active 2022 ANYA MATOS MD [address] [place] [address], [address] , [place] [facility] 3 15:45:42 Lumbar spondylosi s 283792010 Active 2022 FELISA bhardwaj - [facility] 3 14:41:45 Cervical spondylosi s 058940468 Active 2022 jacques beavers [place] [facility] 3 14:41:45 Problem Notes None recorded. Procedures Surgical History Date Name Laterality Status Provider Name and Address Organization Details Recorded Time 10/08/19 23 Lumbar Transforaminal Epidural Steroid Injection (2 Levels Unilateral): completed Niru Milla [place] [facility] 10/07/2022 13:18:15 07/08/19 23 Shoulder Joint Injection under Fluoroscopy completed ANYA MATOS MD [address] [place] [address], [address], [place] [facility] 07/08/2022 08:24:45 06/01/19 23 Hip Joint Injection Fluoro completed Niru Milla [place] [facility] 05/31/2022 15:09:45 02/06/20 22 Shoulder Joint Injection under Fluoroscopy completed ANYA MATOS MD [address] [place] [address], [address], [place] [facility] 02/05/2022 14:06:43 12/12/19 22 SI Joint Injection (Fluoro) completed ANYA MATOS MD [address] [place] [address], [address], [place] [facility] 12/11/2021 15:54:13 11/28/19 22 Joint Injection: Generic completed ANYA MATOS MD [address] [place] [address], [address], [facility] 11/30/2021 17:27:57 05/22/19 22 SI Joint Injection (Fluoro) completed ANYA MATOS MD [address] [place] [address], [address], [facility] 05/22/2021 14:56:17 Hip Surgery completed Sunitha Goldsetin [facility] 03/06/2021 08:51:53 Cholecystectomy completed Fabricio Lee [facility] 11/13/2021 10:43:58 procedure on nose completed Fabricio Jesus [facility] 11/13/2021 10:44:31 Imaging Results None recorded. Procedure Notes None recorded. Medical Equipment None Reported. Allergies No known drug allergies Medications Name Sig Start Date Stop Date Status Note LastModified by Organization Details LastModified Time clindamycin /mupirocin 100/20mg topical capsule (xylitol) [31930] MIX THE CONTENTS OF 1 CAPSULE WITH [...] Updated DateTime 3 180.34 cm 29.8 kg/m2 01945.7 7 g 4 98 % 98 % 103 /min 116/60 mm[Hg] Shu Gutierrez [facility] 3 11:24:18 Date Recorded Body height Body mass index (BMI) Body weight Heart rate Oxygen saturation Oxygen saturation in Arterial blood by Pulse oximetry Pain severity - 0-10 verbal numeric rating [Score] - Reported Systolic And Diastolic Provider Name and Address Organization Details Last Updated DateTime 3 180.34 cm 29.8 kg/m2 21343.7 7 g 98 /min 98 % 98 % 6 118/64 mm[Hg] christo engels [facility] 3 13:57:35 Date Recorded Body height Body mass index (BMI) Body weight Pain severity - 0-10 verbal numeric rating [Score] - Reported Oxygen saturation Oxygen saturation in Arterial blood by Pulse oximetry Heart rate Systolic And Diastolic Provider Name and Address Organization Details Last Updated DateTime 3 180.34 cm 31.7 kg/m2 741796. 47 g 6 98 % 98 % 103 /min 174/115 mm[Hg] jacques azul [facility] 3 15:00:06 Social History Question Answer Notes LastModified by Organizat ion Details LastModified Time Tobacco Smoking Status Current Every Day Smoker Sunitha beavers [facility] 03/06/2021 08:51:44 Do You Have An [...] Or Recreational Drugs Have You Used? THC [email or web address] Information not available 03/06/2021 What Is The Highest Grade Or Level Of School You Have Completed Or The Highest Degree You Have Received? [id number] Information not available 11/13/2021 What Was The Date Of Your Most Recent Tobacco Screening? 07/14/2022 [email or web address] Information not available 07/08/2022 What Is Your Relationship Status? [email or web address] Information not available 03/06/2021 How Much Tobacco Do You Smoke? 0.5 PPD [email or web address] Information not available 03/06/2021 Have You Used IV Drugs? No Information not available 11/13/2021 Sex: Unknown Functional Status Question Answer Note LastModified by Organizat ion Details LastModified Time Do you use any illicit or recreational drugs? Yes [email or web address] Information not available 03/06/2021 What is your level of alcohol consumption? None [email or web address] Information not available 03/06/2021 Are you currently employed? No Information not available 11/13/2021 Are you able to walk independently without assistance or assistive devices? YESWOREST [email or web address] Information not available 06/11/2022 What is your [...] N Liver Disease Y Rheumatoid Arthritis N Headaches N Fibromyalgia N Kidney Disease N Autoimmune Disease N Osteoarthritis N Neurosurgery N DVT N Peptic Ulcer Disease N Anemia N Heart Attack (MN) N Diabetes N Cardiomyopathy N Bleeding Disorder [...] ICD10 Code Diagnosis IMO Codes Diagnosis Note [id number] ANYA MATOS MD [place] [address] [place] [address] 03/06/2021 08:40:40 03/06/2021 10:10:08 Long-term drug therapy 988199655 Z79.899 The urine sample is being sent [...] moderate risk. Inflammati on of sacroiliac joint 86375294 M46.1 Osteoarthritis of hip 23 9081981 M16.9 [id number] ANYA MATOS MD [place] [address] [place] [address] 05/22/2021 13:15:13 05/22/2021 14:13:41 Inflammation of sacroiliac joint 10060000 M46.1 [id number] ANYA MATOS MD [place] [address] [place] [address] 06/12/2021 10:49:23 06/12/2021 11:30:35 Inflammation of sacroiliac joint 53266739 M46.1 Osteoarthritis of hip 23 6879879 M16.9 Long-term drug therapy 280283837 Z79.885 [id number] MD Mony PENA [address] [place] [address] 11/13/2021 09:46:53 11/13/2021 11:30:28 Inflammation of sacroiliac joint 89753865 M46.1 Osteoarthritis of hip 23 6652714 M16.0 Osteoarthritis 297020324 M15.0 [id number] MD Dean [place] [address] [place] [address] 11/27/2021 12:46:16 11/27/2021 13:51:08 Lateral epicondylitis 603618040 M77.10 [id number] MD Dean [place] [address] [place] [address] 12/11/2021 12:51:43 12/11/2021 13:19:00 Inflammation of sacroiliac joint 74948102 M46.1 [id number] MD Dean [place] [address] [place] [address] 01/29/2022 09:27:21 01/29/2022 11:00:37 Osteoarthritis 526441080 M15.0 Osteoarthritis of hip 23 7107124 M16.0 Inflammati on of sacroiliac joint 26236587 M46.1 Pain of le ft shoulder joint 6679788761 7381895 M25.229 [id number] MD Mony PENA [address] [place] [address] 02/05/2022 12:36:45 02/05/2022 13:03:51 Pain of left shoulder joint 2409337723 0346565 M25.367 [id number] MD Mony PENA [address] [place] [address] 04/20/2022 14:01:47 04/20/2022 15:20:51 Pain of left shoulder joint 2992039067 8338797 M25.512 Ulnar nerv e entrapment at elbow 698249123 G56.23 Osteoarthritis of hip 23 2264763 M16.12 The recommende d procedure is discussed with the patient in detail. Questions related to the procedure are answered. The patient is provided the patient education handout. Bilateral lateral elbow tendinopathy 9074277455 8451937 M77.11 M77.12 [id number] MD [place] [address] [place] [address] 05/31/2022 13:28:14 05/31/2022 15:06:31 Osteoarthritis of hip 401764323 M16.12 [id number] MD Dean [place] [address] [place] [address] 06/11/2022 10:33:18 06/11/2022 11:58:14 Osteoarthritis of hip 240265297 M16.12 The recommende d procedure is discussed with the patient in detail. Questions related to the procedure are answered. The patient is provided the patient education handout. Pain of le ft shoulder joint 8328950900 0354672 M25.512 Ulnar nerv e entrapment at elbow 342453610 G56.23 Bilateral lateral elbow tendinopathy 1323767772 3500409 M77.11 M77.12 Long-term drug therapy 779778745 Z79.899 no UDS 06/11/2022 Neck pain 74826691 M54.2 Inflammati on of joint of shoulder region 435394183 M13.633 [id number] MD [place] [address] [place] [address] 07/07/2022 13:21:50 07/07/2022 13:50:52 Inflammation of joint of shoulder region 609259433 M13.409 [id number] MD Mony PENA [address] [place] [address] 07/14/2022 13:46:46 07/14/2022 15:18:14 Osteoarthritis of hip 753878006 M16.12 The recommende d procedure is discussed with the patient in detail. Questions related to the procedure are answered. The patient is provided the patient education handout. Pain of le ft shoulder joint 4002726585 3500037 M25.512 Ulnar nerv e entrapment at elbow 351740443 G56.23 Bilateral lateral elbow tendinopathy 6337152028 5766915 M77.11 M77.12 Long-term drug therapy 500020138 Z79.899 Inflammati on of joint of shoulder region 468847793 M13.819 Cervical spondylosis 387 631417 M47.812 Lumbar spondylosis 59752 0009 M47.403 [id number] ANYA MATOS MD [place] [address] [place] [address] 10/07/2022 12:35:11 10/07/2022 13:15:35 Lumbar radiculopathy 326534858 M54.16 [id number] ANYA MATOS MD [place] [address] [place] [address] 2022 14:29:54 2022 15:50:04 Osteoarthritis of hip 801028046 M16.12 The recommende d procedure is discussed with the patient in detail. Questions related to the procedure are answered. The patient is provided the patient education handout. Pain of le ft shoulder joint 6131757265 6769998 M25.512 Ulnar nerv e entrapment at elbow 259267527 G56.23 Bilateral lateral elbow tendinopathy 0516870193 5082714 M77.11 M77.12 Inflammati on of joint of shoulder region 352313321 M13.819 Long-term drug therapy 126396860 Z79.899 NO UDS TODAY 2022 Cervical spondylosis 387 928148 M47.812 Lumbar spondylosis 17486 0009 M47.816 Lumbosacra l radiculitis 79025551 M54.17 Health Concerns Section Related Observation LastModified by Organization Detai ls LastModified Time None Recorded Concern Status LastModified by Organization Details LastModified Time None Recorded Advance Directives Directive N: Payers Insurance Date Sequence Insurance Name Policy Number Policy Knox Covered Member ID Knox Member ID Guarantor Name 11/08/2022 1 [employer] [facility] (MEDICAID HMO) Yusuf Cooper [id number] Yusuf Cooper Notes Date Note Type Note [...] #1 ia left shoulder injection; 50% pain wfwnqt7805/31/2022 #1 ia left hip injection; 40% pain [...] for 2 days. YANIV REYES, [address] [place], [address], [facility]ly [facility] 06/13/2022 20:30:59 07/14/2022 text/html Follow-up (meds & injections)Reported by PatientHPIFor neuroflow, patient reportsnot utilizing. For improvement, patient reportspain is the same as compared to last visit.. For pain scores, patient reportsaverage pain- 4/10,current pain- 4/10, andworst pain- 7/10. For recent injections, patient reportsjoint injection: shoulder-(07/07/2022 #1 ia bilateral shoulder injection; 60% pain cufkmu4502/05/2022 #1 ia left shoulder injection; 50% pain nltkic4005/31/2022 #1 ia left hip injection; 40% pain [...] Shoulder injection; 60% pain relief ORION MERCER, [address] [place], [address], [facility] 09/08/2022 17:34:13 2022 text/html Follow-up (meds & injections)Reported by PatientHPIFor improvement, patient reportspain is getting worse.. For neuroflow, patient reportsnot utilizing. For pain scores, patient reportsaverage pain- 4/10,current pain- 6/10, andworst pain- 7/10. For recent injections, patient reportsjoint injection: shoulder-(10/07/2022 #1 tf-sherine left l4/5, l5/s1; 50% pain fzkojx9707/07/2022 #1 ia bilateral shoulder injection; 60% pain lckuif7402/05/2022 #1 ia left shoulder injection; 50% pain pbzeoi1905/31/2022 #1 ia left hip injection; 40% pain [...] L4/5, L5/S1; 50% pain relief ORION MERCER, [address] [place], [address], [facility] 2022 16:37:51
[2025-02-13 14:09] LABS: RBC Morphology Normal; Total Cells Counted 100
[2025-02-13 14:16] LABS: Alanine Aminotransferase 63 U/L (12-78); Anion Gap 15.2 mEq/L (5-15); Aspartate Amino Transferase 52 U/L (17-59); Bilirubin,Total 0.6 mg/dl (0.2-1.3); Blood Urea Nitrogen 15 mg/dl (9-20); Calcium 10.5 mg/dl (8.4-10.2); Carbon Dioxide 25 mmol/L (22.0-30.0); Chloride 99 mmol/L (98-107); Creatinine,Serum 0.90 mg/dl (0.66-1.25); Estimated Glomerular Filt Rate 88 ml/min (>60); GFR (African American) 107 ML/MIN (>60); Glucose 151 mg/dl (74-100); Potassium 5.2 mmoL/L (3.5-5.1); Sodium 134 mmol/L (136-145)
[2025-02-13 14:17] LABS: Albumin Level 4.8 g/dl (3.5-5.0); Albumin/Globulin Ratio 2.0 (1.1-1.8); Alkaline Phosphatase 102 U/L (38-126); Cholesterol 164 mg/dl (140-200); Globulin 2.4 g/dL (1.3-3.2); HDL Cholesterol 16 mg/dl (40-60); Total Protein,Serum 7.2 g/dl (6.3-8.2)
[2025-02-13 14:26] LABS: Triglycerides 432 mg/dl (30-150)
[2025-02-13 14:47] LABS: Thyroid Stimulating Hormone 1.19 uIU/mL (0.465-4.68)
--- NOTE | 2025-02-13 14:48 | XR_ITS ---
FINAL REPORT CLINICAL HISTORY: L Hip pain COMPARISON: 07/31/2019 FINDINGS: LEFT HIP Two views of the left hip and an AP pelvis view were obtained. There is no acute fracture or dislocation. The joint spaces are well-preserved. The visualized bony structures are well aligned. There is no acute soft tissue abnormality. IMPRESSION: No acute abnormality identified. Reviewed, Interpreted and Dictated by Epifanio Chong MD Transcribed by Elizabeth Myers Authenticated and '[facility]
--- NOTE | 2025-02-13 14:48 | XR_ITS ---
FINAL REPORT CLINICAL HISTORY: R hip pain COMPARISON: 07/31/2019 FINDINGS: RIGHT HIP Two views of the right hip and an AP pelvis view were obtained. There is a sideplate and screws securing the right acetabulum. There are mild hypertrophic changes at the right hip joint margin. There is no acute fracture or dislocation. The visualized bony structures are well aligned. There is no acute soft tissue abnormality. IMPRESSION: Postoperative and degenerative changes without acute abnormality. Reviewed, Interpreted and Dictated by Epifanio Chong MD Transcribed by Elizabeth Myers Authenticated and [facility]
== END 2025-02-13 23:59 | disposition home or self-care (01) ==
LOC: LAB 13:03
PROVIDERS: PCP Nurse Practitioner Family; Visit Provider Nurse Practitioner Family
DX: M16.11 Unilateral primary osteoarthritis, right hip (principal); E78.00 Pure hypercholesterolemia, unspecified; I10 Essential (primary) hypertension; E34.9 Endocrine disorder, unspecified; Z12.5 Encounter for screening for malignant neoplasm of prostate; M25.552 Pain in left hip; Z98.890 Other specified postprocedural states
CPT/HCPCS: 36415; 73502; 80053; 80061; 84443; 85007; 85025; G0103

== ENCOUNTER 2025-02-25 14:11 | Outpatient (CLI) | payer MEDICARE, MEDICAID, SELFPAY ==
--- OUTSIDE RECORDS SUMMARY | 2025-02-25 14:18 | XMS_ITS | Encounter Summary ---
Author Organization Healthcare Address [address] [place] [address] Care Team Providers Care Cementer Machine Applicator Name Role Phone Ewa Sandy APRN Primary Care Provider + [phone] Anatoliy Coyne MD Primary Care Provider + [phone] Encounter Details Date Type Department Care Team (Late st Contact Info) Description 09/13/2018 Orders Only External Location [address] [place] [address] Provider, External Social History Tobacco Use Types [...] on filedocumented in this encounter Care Teams Cementer Machine Applicator Relationship Specialty Start Date End Date Ewa Sandy APRN [address] [place] [address] PCP - General 08/08/20 01/27/23 Anatoliy Coyne MD [address] [facility] [place] [address] PCP - General 01/28/23 documented as of this encounter
--- OUTSIDE RECORDS SUMMARY | 2025-02-25 14:18 | XMS_ITS | Clinical Summary ---
Author Organization [facility] Address [address] [place] [address] Phone Care Team Providers Care Cork Insulation Setter Name Role Phone Marques MEDEL, Humberto Reed Unavailable [phone] Jacques Maher Unavailable Unavailable Reason for Visit and Chief Complaint [Patient Encounter] Problems Includes: Problems addressed during this encounter and other active Problems All Visits Onset Date Resolved Date Provider Condition S tatus Lower Back Pain 06/06/2023 Kaylin Pulido P A-C Active Last Documented On 4 9:45AM ; [facility] Joint Pain Shoulder Left 06/02/2023 Kaylin AVENDANO-C Active Last Documented On 4 3:01PM ; [facility] Plan of Treatment No Plan of Treatment [...] q 4-6h prn post op pain Pharmacy: [facility] [address], [address] - Last Documented On 4 9:53AM By Humberto Mohan ; [facility] Current Medications (continue as prescribed) Triamcinolone Acetonide 0.1% External Cream 12/14/2023 Provider: Anatoliy Charles Diagnosis: twice a day Last Documented On 4 1:27PM By Anatoliy Mckenna ; [facility] Pepcid 20 MG Oral Tablet 12/14/2023 Provider: Prabhakar Mckenna PA-C Diagnosis: once a day Last Documented On 4 1:27PM By Anatoliy Mckenna ; [facility] Amantadine HCl 100 MG Oral Tablet 12/05/2023 Provide r: GIOVANNA RAYMOND MD Diagnosis: Last Documented On 4 1:07PM By Marychuy Serrano ; [facility] Gabapentin 800 MG Oral Tablet 12/04/2023 Provider: Diagnosis: Last Documented On 4 1:07PM By Marychuy Serrano ; [facility] Testosterone Cypionate 200 M G/ML Intramuscular Solution 11/30/2023 Provider: YUSUF MONTENEGRO MD Diagnosis: Last Documented On 4 1:07PM By Marychuy Serrano ; [facility] FT Allergy Relief 24 Hour 180 MG Oral Tablet Provider: Diagnosis: Last Documented On 4 1:07PM By Marychuy Serrano ; [facility] Rosuvastatin Calcium 10 MG Oral Tablet 11/10/2023 Pr ovider: Diagnosis: Last Documented On 4 1:07PM By Marychuy Serrano ; [facility] oxyCODONE HCl 5 MG Oral Tablet 11/09/2023 Provider: Humberto Mohan MD Diagnosis: Last Documented On 4 1:07PM By Marychuy Serrano ; [facility] Amantadine HCl 100 MG Oral Tablet 11/07/2023 Provide r: GIOVANNA RAYMOND MD Diagnosis: Last Documented On 4 1:07PM By Marychuy Serrano ; [facility] Atorvastatin Calcium 20 MG Oral Tablet 09/26/2023 Pr ovider: Diagnosis: Last Documented On 4 12:31PM By Kris Gutierrez ; [facility] Amantadine HCl 100 MG Oral Tablet 09/12/2023 Provide r: GIOVANNA RAYMOND MD Diagnosis: Last Documented On 4 12:31PM By Kris Gutierrez ; [facility] Cephalexin 500 MG Oral Capsule 07/24/2023 Provider: Diagnosis: Last Documented On 4 8:44AM By Humberto Mohan ; [facility] Testosterone Cypionate 200 M G/ML Intramuscular Solution 05/26/2023 Provider: YUSUF MONTENEGRO MD Diagnosis: Last Documented On 4 3:01PM By Dominique Murray ; [facility] Lisinopril 40 MG Oral Tablet 05/13/2023 Provider: Diagnosis: Last Documented On 4 3:01PM By Dominique Murray ; [facility] HM Allergy Relief 180 MG Oral Tablet 05/11/2023 Prov ider: Anatoliy Coyne MD Diagnosis: Last Documented On 4 3:01PM By Dominique Murray ; [facility] Gabapentin 800 MG Oral Tablet 05/08/2023 Provider: Diagnosis: Last Documented On 4 3:01PM By Dominique Murray ; [facility] Amitriptyline HCl 25 MG Oral Tablet 05/03/2023 Provi becky: Diagnosis: Last Documented On 4 3:01PM By Dominique Murray ; [facility] HYDROcodone-Acetaminophen 7.5-325 MG Oral Tablet 04/19 Provider: Diagnosis: Last Documented On 4 3:01PM By Dominique Murray ; [facility] Medications Administered Includes: Administered Medications from [...] Member ID Group # Subscriber Relationship Effect kayliegh Dates 1 - [employer] [facility] [id number] Yusuf Cooper Self Clinical Notes Includes: Clinical Notes from this encounter No Clinical Notes Recorded
--- OUTSIDE RECORDS SUMMARY | 2025-02-25 14:18 | XMS_ITS ---
Care Plan - [facility] Created on: February 25, 2025 Yusuf Cooper : 1970 Sex: Male Author Organization [facility] Address [address] [place] [address] Phone Care Team Providers Care Psychology Department Chair Name Role Phone Marques MEDEL, Humberto Reed Unavailable [phone] Jacques Maher Unavailable Unavailable
--- OUTSIDE RECORDS SUMMARY | 2025-02-25 14:18 | XMS_ITS | Clinical Summary ---
Author Organization [facility] , [facility] Address [address] [place] [address] Phone Care Team Providers Care Coupon Manifest Clerk Name Role Phone Marques MEDEL, Humberto Reed Unavailable Unavail able Jacques Maher Unavailable Unavailable Reason for Visit and Chief Complaint The Chief Complaint is: Left shoulder pain Problems Includes: Problems addressed during this encounter and other active Problems Current Visit Onset Date Resolved Date Provider Conditio n Status Lower Back Pain 06/06/2023 Kaylin Pulido P A-C Active Last Documented On 4 9:45AM ; [facility], [facility] Past Visits Onset Date Resolved Date Provider Condition Status Joint Pain Shoulder Left 06/02/2023 Kaylin Pulido PA-C Active Last Documented On 4 3:01PM ; [facility], [facility] Plan of Treatment Patient understands the [...] - Last Documented On 08/09/2023 9:09AM ; [facility], [facility] Instructions to patient Intervention and counseling on cessation of tobacco use Last Documented On 4 1:53PM ; [facility], [facility] Lose weight Last Documented On 4 1:53PM ; [facility], [facility] Assessments Includes: Assessments from this encounter Findings - Overweight - Last Documented On 08/09/2023 9:09AM ; [facility], [facility] Left cuff repair - Last Documented On 08/09/2023 9:09AM ; [facility] Instructions Includes: Instructions from this encounter Instructions to patient Intervention and counseling on cessation of tobacco use Last Documented On 4 1:53PM ; [facility], [facility] Lose weight Last Documented On 4 1:53PM ; [facility] Medical Equipment - Implanted Devices Includes: Current Devices No Medical Equipment Recorded Medications Includes: Medications discussed during this encounter and other current Medications New / Renewed during this visit Humberto Mohan MD on 08/08/2023 oxyCODONE HCl 5 MG Oral Tablet Provider: Humberto Mohan MD 5 day supply: 40 tablet, 0 refills Diagnosis: 1-2 po q 4-6h prn post op pain Pharmacy: [facility] [address], [address] - Last Documented On 4 2:43PM By Humberto Mohan ; [facility], [facility] Current Medications (continue as prescribed) Triamcinolone Acetonide 0.1% External Cream 12/14/2023 Provider: Anatoliy Charles Diagnosis: twice a day Last Documented On 4 1:27PM By Anatoliy Mckenna ; [facility], [facility] Pepcid 20 MG Oral Tablet 12/14/2023 Provider: Prabhakar Mckenna PA-C Diagnosis: once a day Last Documented On 4 1:27PM By Anatoliy Mckenna ; [facility], [facility] Amantadine HCl 100 MG Oral Tablet 12/05/2023 Provide r: GIOVANNA RAYMOND MD Diagnosis: Last Documented On 4 1:07PM By Marychuy Serrano ; [facility] Gabapentin 800 MG Oral Tablet 12/04/2023 Provider: Diagnosis: Last Documented On 4 1:07PM By Marychuy Serrano ; [facility], [facility] Testosterone Cypionate 200 M G/ML Intramuscular Solution 11/30/2023 Provider: BINDU MONTENEGRO MD Diagnosis: Last Documented On 4 1:07PM By Marychuy Serrano ; [facility], [facility] FT Allergy Relief 24 Hour 180 MG Oral Tablet 4 Provider: Diagnosis: Last Documented On 4 1:07PM By Marychuy Serrano ; [facility] Rosuvastatin Calcium 10 MG Oral Tablet 11/10/2023 Pr ovider: Diagnosis: Last Documented On 4 1:07PM By Marychuy Serrano ; [facility] oxyCODONE HCl 5 MG Oral Tablet 11/09/2023 Provider: Humberto Mohan MD Diagnosis: Last Documented On 4 1:07PM By Marychuy Serrano ; [facility] Amantadine HCl 100 MG Oral Tablet 11/07/2023 Provide r: GIOVANNA RAYMOND MD Diagnosis: Last Documented On 4 1:07PM By Marychuy Serrano ; [facility] Atorvastatin Calcium 20 MG Oral Tablet 09/26/2023 Pr ovider: Diagnosis: Last Documented On 4 12:31PM By Kris Gutierrez ; [facility] Amantadine HCl 100 MG Oral Tablet 09/12/2023 Provide r: GIOVANNA RAYMOND MD Diagnosis: Last Documented On 4 12:31PM By Kris Gutierrez ; [facility], [facility] Cephalexin 500 MG Oral Capsule 07/24/2023 Provider: Diagnosis: Last Documented On 4 8:44AM By Humberto Mohan ; [facility], [facility] Testosterone Cypionate 200 M G/ML Intramuscular Solution 05/26/2023 Provider: BINDU MONTENEGRO MD Diagnosis: Last Documented On 4 3:01PM By Dominique Murray ; [facility] Lisinopril 40 MG Oral Tablet 05/13/2023 Provider: Diagnosis: Last Documented On 4 3:01PM By Dominique Murray ; [facility] HM Allergy Relief 180 MG Oral Tablet 05/11/2023 Prov ider: Anatoliy Coyne MD Diagnosis: Last Documented On 4 3:01PM By Dominique Murray ; [facility] Gabapentin 800 MG Oral Tablet 05/08/2023 Provider: Diagnosis: Last Documented On 4 3:01PM By Dominique Murray ; [facility] Amitriptyline HCl 25 MG Oral Tablet [...] On 4 12:19PM By Humberto Mohan ; [facility] oxyCODONE HCl 5 MG Oral Tablet 10/25/2023 - 11/01/2023 Provider: Humberto kapadia MD Diagnosis: 1 q 6 hours prn pain Last Documented On 4 2:47PM By Humberto Mohan ; [facility] oxyCODONE HCl 5 MG Oral Tablet 10/17/2023 - 10/24/2023 Provider: Humberto kapadia MD Diagnosis: 1 q 6 hours prn pain Last Documented On 4 4:10PM By Humberto Mohan ; [facility] oxyCODONE HCl 5 MG [...] On 4 4:36PM By Humberto Mohan ; [facility] oxyCODONE HCl 5 MG Oral Tablet 09/26/2023 - 10/01/2023 Provider: Humberto kapadia MD Diagnosis: 1-2 po q 4-6h prn post op pain Last Documented On 4 12:05PM By Humberto Mohan ; [facility] oxyCODONE HCl 5 MG Oral Tablet 09/19/2023 - 09/24/2023 Provider: Humberto kapadia MD Diagnosis: 1-2 po q 4-6h prn post op pain Last Documented On 4 12:37PM By Humberto Mohan ; [facility] oxyCODONE HCl 5 MG Oral Tablet 09/12/2023 - 09/17/2023 Provider: Humberto kapadia MD Diagnosis: 1-2 po q 4-6h prn post op pain Last Documented On 4 9:53AM By Humberto Mohan ; [facility] oxyCODONE HCl 5 MG Oral Tablet 09/05/2023 - 09/10/2023 Provider: Humberto kapadia MD Diagnosis: 1-2 po q 4-6h prn post op pain Last Documented On 4 5:36PM By Humberto Mohan ; [facility] oxyCODONE HCl 5 MG Oral Tablet 08/30/2023 - 09/04/2023 Provider: Humberto kapadia MD Diagnosis: 1-2 po q 4-6h prn post op pain Last Documented On 4 9:51AM By Humberto Mohan ; [facility] oxyCODONE HCl 5 MG Oral Tablet 08/24/2023 - 08/29/2023 Provider: Humberto kapadia MD Diagnosis: 1-2 po q 4-6h prn post op pain Last Documented On 4 3:04PM By Humberto Mohan ; [facility] oxyCODONE HCl 5 MG Oral Tablet 08/17/2023 - 08/22/2023 Provider: Humberto kapadia MD Diagnosis: 1-2 po q 4-6h prn post op pain Last Documented On 4 12:45PM By Humberto Mohan ; [facility] oxyCODONE HCl 5 MG Oral Tablet 08/12/2023 - 08/17/2023 Provider: Humberto kapadia MD Diagnosis: 1-2 po q 4-6h prn post op pain Last Documented On 4 4:26PM By Humberto Mohan ; [facility] oxyCODONE HCl 5 MG Oral Tablet 08/04/2023 - 08/09/2023 Provider: Humberto kapadia MD Diagnosis: 1-2 po q 4-6h prn post op pain Last Documented On 4 4:23PM By Humberto Mohan ; [facility] oxyCODONE HCl 5 MG Oral Tablet 07/28/2023 - 08/02/2023 Provider: Humberto kapadia MD Diagnosis: 1-2 po q 4-6h prn post op pain Last Documented On 4 8:59AM By Humberto Mohan ; [facility] Ondansetron HCl 4 MG Oral Tablet 07/07/2023 - 07/17/2023 Provider: Humberto kapadia MD Diagnosis: 1 q 8 hours prn nausea 1 q 8 hours prn post op nausea Last Documented On 4 8:38AM By Jennifer Funes [facility] Benzoyl Peroxide Wash 5% External Liquid 07/07/2023 - 07/08/2023 Provider: Humberto kapadia MD Diagnosis: use as directed by Dr. Mohan Last Documented On 4 8:38AM By Jennifer Finley ; [facility] Medications Administered Includes: Administered Medications from this encounter No Administered Medications Recorded Vital Signs Includes: Vital Signs from this encounter Vital Name 08/08/2023 01:53P Height (in) 71 Weight (lb) 240 Body Mass Index 33.5 Body Surface Area 2.3 Note: hdv Last Documented: On 08/08/2023 1:54PM ; [facility] Results Includes: Results discussed during this encounter [...] 07/05/2023 Last Documented On 4 1:53PM ; [facility] Alcohol use 06/02/2023 Last Documented On 4 1:53PM ; [facility] Caffeine use 06/02/2023 Last Documented On 4 1:53PM ; [facility] No recent change in diet 06/02/2023 Last Documented On 4 1:53PM ; [facility] Not exercising regularly 06/02/2023 Last Documented On 4 1:53PM ; [facility] Not using drugs 06/02/2023 Last Documented On 4 1:53PM ; [facility] Yes, current smoker. 06/02/2023 Last Documented On 4 1:53PM ; [facility] Tobacco non-user 06/02/2023 Last Documented On 4 1:53PM ; [facility], [facility] Smoking Status Unknown Procedures and Surgical History Includes: Procedures from this encounter Procedures Code Diagnosis Performing Provider Service L ocation Service Date intervention and counseling on cessation of tobacco use 4000F Last Documented On 4 1:53PM ; [facility], [facility] use of tobacco assessment performed 1000F Last Documented On 4 1:53PM ; [facility] review of medications documented 1160F Last Documented On 4 1:53PM ; [facility] an X-ray was performed 37744 Last Documented On 4 1:53PM ; [facility] an MRI was performed [id number] Last Documented On 4 1:53PM ; [facility], [facility] Surgical History Last Updated History of hernia repair 06/02/2023 Last Documented On 4 1:53PM ; [facility], [facility] History of Previous Fractures 06/02/2023 Last Documented On 4 1:53PM ; [facility], [facility] Medical History Includes: Medical History addressed during this encounter Description Last Updated History of arthritis 06/02/2023 Last Documented On 4 1:53PM ; [facility], [facility] History of diverticulitis of colon 06/01 Last Documented On 4 1:53PM ; [facility], [facility] History of Fractures 06/02/2023 Last Documented On 4 1:53PM ; [facility], [facility] History of History of Blood Transfusion 06/02/2023 Last Documented On 4 1:53PM ; [facility], [facility] History of Hypertension 06/02/2023 Last Documented On 4 1:53PM ; [facility], [facility] History of Sleep Apnea 06/02/2023 Last Documented On 4 1:53PM ; [facility], [facility] Family History Includes: Family History addressed during this encounter Description Last Updated Family history of heart disease 06/02/19 Last Documented On 4 1:53PM ; [facility], [facility] Family history of rheumatoid arthritis 0 06/02/2023 Last Documented On 4 1:53PM ; [facility], [facility] Family history of systemic hypertension 06/02/2023 Last Documented On 4 1:53PM ; [facility], [facility] Review of Systems Includes: Review of [...] Time Diagnosis Post Op Kaylin Pulido PA-C [facility] 4 1:39PM 2:17PM Overweight Insurance Includes: Active Insurance Policies Plan Name Member ID Group # Subscriber Relationship Effect kayleigh Dates 1 - [employer] [facility] [id number] Bindu Cooper Self Clinical Notes Includes: Clinical Notes from this encounter * Progress note Date Encounter Last Documented by 08/08/2023 Post Op Last documented on 08/09/2023; 9:09 AM, Kaylin Pulido PA-C; [facility], [facility] Active Problems & Conditions - Joint [...]
--- OUTSIDE RECORDS SUMMARY | 2025-02-25 14:18 | XMS_ITS ---
Author Organization [facility] , [facility] Address [address] [place] [address] Phone Care Team Providers Care Web Press Operator Helper Offset Name Role Phone Marques MEDEL, Humberto Reed Unavailable [phone] Jacques Maher Unavailable Unavailable Problems Includes: Active, inactive, and resolved Problems All Visits Onset Date Resolved Date Provider Condition S tatus Lower Back Pain 06/06/2023 Kaylin Pulido P A-C Active Last Documented On 4 9:45AM ; [facility] Joint Pain Shoulder Left 06/02/2023 Kaylin Pulido PA-C Active Last Documented On 4 3:01PM ; [facility], [facility] Plan of Treatment Pending Tests Order Diagnosis Results Due Ordering P rovider Procedure/Tests BGO EMG Low back pain, unspecified 06/26 11/18 Shane Cheung MD Last Documented On 4 3:39PM ; [facility], [facility] Instructions to patient Intervention and counseling on cessation of tobacco use Last Documented On 4 1:06PM ; [facility] Lose weight Last Documented On 4 1:06PM ; [facility] Intervention and counseling on cessation of tobacco use Last Documented On 4 12:31PM ; [facility] Lose weight Last Documented On 4 12:31PM ; [facility] Intervention and counseling on cessation of tobacco use Last Documented On 4 1:53PM ; [facility] Lose weight Last Documented [...] [facility] Overweight Post Op with Chestodd Pulido PA-C 08/08/2023 Last Documented On 4 [...] On 4 1:07PM By Marychuy Serrano ; [facility] Testosterone Cypionate 200 M G/ML Intramuscular Solution 11/30/2023 Provider: BINDU MONTENEGRO MD Diagnosis: Last Documented On 4 1:07PM By Marychuy Serrano ; [facility] FT Allergy Relief 24 Hour 180 MG Oral Tablet Provider: Diagnosis: Last Documented On 4 1:07PM By Marychuy Serrano ; [facility] Rosuvastatin Calcium 10 MG Oral Tablet 11/10/2023 Pr ovider: Diagnosis: Last Documented On 4 1:07PM By Marychuy Serrano ; [facility] oxyCODONE HCl 5 MG Oral Tablet 11/09/2023 Provider: Humberto Mohan MD Diagnosis: Last Documented On 4 1:07PM By Marychuy Serrano ; [facility], [facility] Amantadine HCl 100 MG Oral Tablet 11/07/2023 Provide r: GIOVANNA RAYMOND MD Diagnosis: Last Documented On 4 1:07PM By Marychuy Serrano ; [facility], [facility] Atorvastatin Calcium 20 MG Oral Tablet 09/26/2023 Pr ovider: Diagnosis: Last Documented On 4 12:31PM By Kris Gutierrez ; [facility], [facility] Amantadine HCl 100 MG Oral Tablet 09/12/2023 Provide r: GIOVANNA RAYMOND MD Diagnosis: Last Documented On 4 12:31PM By Kris Gutierrez ; [facility], [facility] Cephalexin 500 MG Oral Capsule 07/24/2023 Provider: Diagnosis: Last Documented On 4 8:44AM By Humberto Mohan ; [facility] Testosterone Cypionate 200 M G/ML Intramuscular Solution 05/26/2023 Provider: BINDU MONTENEGRO MD Diagnosis: Last Documented On 4 3:01PM By Dominique Murray ; [facility] Lisinopril 40 MG Oral Tablet 05/13/2023 Provider: Diagnosis: Last Documented On 4 3:01PM By Dominique Murray ; [facility] HM Allergy Relief 180 MG Oral Tablet 05/11/2023 Prov ider: Anatoliy Coyne MD Diagnosis: Last Documented On 4 3:01PM By Dominique Murray ; [facility], [facility] Gabapentin 800 MG Oral Tablet 05/08/2023 Provider: Diagnosis: Last Documented On 4 3:01PM By Dominique Murray ; [facility], [facility] Amitriptyline HCl 25 MG Oral Tablet 05/03/2023 Provi becky: Diagnosis: Last Documented On 4 3:01PM By Dominique Murray ; [facility], [facility] HYDROcodone-Acetaminophen 7.5-325 MG Oral Tablet 04/19 Provider: Diagnosis: Last Documented On 4 3:01PM By Dominique Murray ; [facility], [facility] Past Medications on file oxyCODONE HCl 5 MG Oral Tablet 11/09/2023 - 11/16/2023 Provider: Humberto kapadia MD Diagnosis: 1 q 6 hours prn pain Last Documented On 4 3:28PM By Humberto Mohan ; [facility] oxyCODONE HCl 5 MG Oral Tablet 11/02/2023 - 11/09/2023 Provider: Humberto kapadia MD Diagnosis: 1 q 6 hours prn pain Last Documented On 4 12:19PM By Humberto Mohan ; [facility] oxyCODONE HCl 5 MG Oral Tablet 10/25/2023 - 11/01/2023 Provider: Humberto kapadia MD Diagnosis: 1 q 6 hours prn pain Last Documented On 4 2:47PM By Humberto Mohan ; [facility], [facility] oxyCODONE HCl 5 MG Oral Tablet 10/17/2023 - 10/24/2023 Provider: Humberto kapadia MD Diagnosis: 1 q 6 hours prn pain Last Documented On 4 4:10PM By Humberto Mohan ; [facility], [facility] oxyCODONE HCl 5 MG Oral Tablet 10/12/2023 - 10/19/2023 Provider: Humberto kapadia MD Diagnosis: 1 q 6 hours prn pain Last Documented On 4 4:14PM By Humberto Mohan ; [facility] HYDROcodone-Acetaminophen 5- 325 MG Oral Tablet 10/10/2023 - 10/17/2023 Provider: Humberto Mohan MD Diagnosis: three times a day Last Documented On 4 1:19PM By Humberto Mohan ; [facility] oxyCODONE HCl 5 MG Oral Tablet 10/03/2023 - 10/08/2023 Provider: Humberto kapadia MD Diagnosis: 1-2 po q 4-6h prn post op pain Last Documented On 4 4:36PM By Humberto Mohan ; [facility] oxyCODONE HCl 5 MG Oral Tablet 09/26/2023 - 10/01/2023 Provider: Humberto kapadia MD Diagnosis: 1-2 po q 4-6h prn post op pain Last Documented On 4 12:05PM By Humberto Mohan ; [facility] oxyCODONE HCl 5 MG Oral Tablet 09/19/2023 - 09/24/2023 Provider: Humberto kapadia MD Diagnosis: 1-2 po q 4-6h prn post op pain Last Documented On 4 12:37PM By Humberto Mohan ; [facility] oxyCODONE HCl 5 MG Oral Tablet 09/12/2023 - 09/17/2023 Provider: Humberto kapadia MD Diagnosis: 1-2 po q 4-6h prn post op pain Last Documented On 4 9:53AM By Humberto Mohan ; [facility] oxyCODONE HCl 5 MG Oral Tablet 09/05/2023 - 09/10/2023 Provider: Humberto kapadia MD Diagnosis: 1-2 po q 4-6h prn post op pain Last Documented On 4 5:36PM By Humberto Mohan ; [facility] oxyCODONE HCl 5 MG Oral Tablet 08/30/2023 - 09/04/2023 Provider: Humberto kapadia MD Diagnosis: 1-2 po q 4-6h prn post op pain Last Documented On 4 9:51AM By Humberto Mohan ; [facility] oxyCODONE HCl 5 MG Oral Tablet 08/24/2023 - 08/29/2023 Provider: Humberto kapadia MD Diagnosis: 1-2 po q 4-6h prn post op pain Last Documented On 4 3:04PM By Humberto Mohan ; [facility] oxyCODONE HCl 5 MG Oral Tablet 08/17/2023 - 08/22/2023 Provider: Humberto kapadia MD Diagnosis: 1-2 po q 4-6h prn post op pain Last Documented On 4 12:45PM By Humberto Mohan ; [facility] oxyCODONE HCl 5 MG Oral Tablet 08/12/2023 - 08/17/2023 Provider: Humberto kapadia MD Diagnosis: 1-2 po q 4-6h prn post op pain Last Documented On 4 4:26PM By Humberto Mohan ; [facility] oxyCODONE HCl 5 MG Oral Tablet 08/08/2023 - 08/13/2023 Provider: Humberto kapadia MD Diagnosis: 1-2 po q 4-6h prn post op pain Last Documented On 4 2:43PM By Humberto Mohan ; [facility] oxyCODONE HCl 5 MG Oral Tablet 08/04/2023 - 08/09/2023 Provider: Humberto kapadia MD Diagnosis: 1-2 po q 4-6h prn post op pain Last Documented On 4 4:23PM By Humberto Mohan ; [facility] oxyCODONE HCl 5 MG Oral Tablet 07/28/2023 - 08/02/2023 Provider: Humberto kapadia MD Diagnosis: 1-2 po q 4-6h prn post op pain Last Documented On 4 8:59AM By Humberto Mohan ; [facility] Ondansetron HCl 4 MG Oral Tablet 07/07/2023 - 07/17/2023 Provider: Humberto kapadia MD Diagnosis: 1 q 8 hours prn nausea 1 q 8 hours prn post op nausea Last Documented On 4 8:38AM By Jennifer Finley ; [facility] Benzoyl Peroxide Wash 5% External Liquid 07/07/2023 - 07/08/2023 Provider: Humberto kapadia MD Diagnosis: use as directed by Dr. Mohan Last Documented On 4 8:38AM By Jennifer Finley ; [facility], [facility] Medications Administered Includes: Administered Medications in patient's chart No Administered Medications Recorded Results Includes: Results from 02/26/2024 through 02/25/2025 No Results Recorded For Specified Dates History of Present Illness History of Present Illness not supported for this document type No History of Present Illness Recorded Social History Description Last Updated Tobacco use 07/05/2023 Last Documented On 4 2:34PM ; [facility] Alcohol use 06/02/2023 Last Documented On 4 12:36PM ; [facility] Caffeine use 06/02/2023 Last Documented On 4 12:36PM ; [facility] No recent change in diet 06/02/2023 Last Documented On 4 12:36PM ; [facility] Not exercising regularly 06/02/2023 Last Documented On 4 12:36PM ; [facility] Not using drugs 06/02/2023 Last Documented On 4 12:36PM ; [facility] Yes, current smoker. 06/02/2023 Last Documented On 4 12:36PM ; [facility] Tobacco non-user 06/02/2023 Last Documented On 4 12:36PM ; [facility] Smoking Status Unknown Procedures and Surgical History Surgical History Last Updated History of hernia repair 06/02/2023 Last Documented On 4 12:36PM ; [facility] History of Previous Fractures 06/02/2023 Last Documented On 4 12:36PM ; [facility] Medical History Includes: Medical History in patient's chart Description Last Updated History of arthritis 06/02/2023 Last Documented On 4 12:36PM ; [facility] History of diverticulitis of colon 06/01 Last Documented On 4 12:36PM ; [facility] of Fractures 06/02/2023 Last Documented On 4 12:36PM ; [facility] History of History of Blood Transfusion 06/02/2023 Last Documented On 4 12:36PM ; [facility] History of Hypertension 06/02/2023 Last Documented On 4 12:36PM ; [facility] History of Sleep Apnea 06/02/2023 Last Documented On 4 12:36PM ; [facility] Family History Includes: Family History in patient's chart Description Last Updated Family history of heart disease 06/02/19 Last Documented On 4 12:36PM ; [facility] Family history of rheumatoid arthritis 0 06/02/2023 Last Documented On 4 12:36PM ; [facility] Family history of systemic hypertension 06/02/2023 Last Documented On 4 12:36PM ; [facility] Review of Systems Review of Systems not [...] Relationship Effect kayleigh Dates 1 - [employer] [facility] [phone] Bindu Vega Clinical Notes Includes: Signed Clinical Notes starting from 03/11/2022 No Clinical Notes Recorded
--- OUTSIDE RECORDS SUMMARY | 2025-02-25 14:18 | XMS_ITS | Encounter Summary ---
Author Organization Healthcare Address [address] [place] [address] Care Team Providers Care Development Lead Name Role Phone Ewa Sandy APRN Primary Care Provider + [phone] Anatoliy Coyne MD Primary Care Provider + [phone] Encounter Details Date Type Department Care Team (Late st Contact Info) Description 09/13/2018 Orders Only External Location [address] [place] [address] Provider, External Social History Tobacco Use Types [...] on filedocumented in this encounter Care Teams Development Lead Relationship Specialty Start Date End Date Ewa Sandy APRN [address] [place] [address] PCP - General 08/08/20 01/27/23 Anatoliy Coyne MD [address] [facility] [place] [address] PCP - General 01/28/23 documented as of this encounter
--- OUTSIDE RECORDS SUMMARY | 2025-02-25 14:18 | XMS_ITS | Clinical Summary ---
Author Organization [facility] Address [address] [place] [address] Care Team Providers Care Paper Stacker Name Role Phone Anatoliy Coyne MD Primary Care Provider [phone] Allergies No known active allergies Medications amLODIPine (Norvasc) 5 MG tablet Take by mouth every night. Active HYDROcodone-ac etaminophen ([place]) 7.5-325 MG tablet Take by mouth 2 [...] each day. 3 Active HM Saline Nasal [place] 0.65 % nasal spray Administer into each [...] 11/10/2016 Sigmoidoscopy 11/10/2016 [facility]-Colorectal Cancer Screening 11/10/2016 [id number] Vaccine (3 - Moderna risk series) 01/23/2021 [...] IMG CT PROCEDURES Final Re sult * [facility] Hepatitis C Antibody (09/09/2018 12:31 AM EDT) [facility] Hepatitis C Ab NEGATIVE Reference Range: Negative [facility] 09/09/2018 12:3 1 AM EDT 09/09/2018 12:38 AM EDT Yosvany Baca MD LAB BLOOD ORDERABLES Final Result [facility] from Last 3 Months or Most Recently Relevant to Health Maintenance Insurance [employer] [facility] MEDICAID Care Teams Paper Stacker Relationship Specialty Start Date End Date Anatoliy Coyne MD [address] [place] [address] PCP - General 01/28/23
--- OUTSIDE RECORDS SUMMARY | 2025-02-25 14:18 | XMS_ITS | Encounter Summary ---
Author Organization Healthcare Address [address] [place] [address] Care Team Providers Care Broadcast Operations Manager Name Role Phone Ewa Sandy APRN Primary Care Provider + [phone] Anatoliy Coyne MD Primary Care Provider + [phone] Encounter Details Date Type Department Care Team (Late st Contact Info) Description 12/30/2022 Orders Only External Location [address] [place] [address] Provider, External Social History Tobacco Use Types [...] on filedocumented in this encounter Care Teams Broadcast Operations Manager Relationship Specialty Start Date End Date Ewa Sandy APRN [address] [place] [address] PCP - General 08/08/20 01/27/23 Anatoliy Coyne MD [address] [facility] [place] [address] PCP - General 01/28/23 documented as of this encounter
--- OUTSIDE RECORDS SUMMARY | 2025-02-25 14:18 | XMS_ITS | Encounter Summary ---
Author Organization Healthcare Address [address] [place] [address] Care Team Providers Care Shop Assistant Name Role Phone Ewa Sandy APRN Primary Care Provider + [phone] Anatoliy Coyne MD Primary Care Provider + [phone] Encounter Details Date Type Department Care Team (Late st Contact Info) Description 09/13/2018 Orders Only External Location [address] [place] [address] Provider, External Social History Tobacco Use Types [...] on filedocumented in this encounter Care Teams Shop Assistant Relationship Specialty Start Date End Date Ewa Sandy APRN [address] [place] [address] PCP - General 08/08/20 01/27/23 Anatoliy Coyne MD [address] [facility] [place] [address] PCP - General 01/28/23 documented as of this encounter
--- OUTSIDE RECORDS SUMMARY | 2025-02-25 14:18 | XMS_ITS | Clinical Summary ---
Author Organization [facility] Address [address] [place] [address] Care Team Providers Care Senior Quality Control Technician Name Role Phone Jacques Maher DO Primary Care Provider [phone] Allergies No known active allergies Medications ondansetron [...] or training? Not on file Preferred Language Tristanian 07/14/2023 Sex and Gender Information Value Date [...] 09/09/2028 019 Medical Devices Implanted Type Area Flooring Helper Device Identifier Shelf Expiration Date Model / Serial / Lot Sys Sut/Anch Biocomp Speedbridge 4.85 12.5 - [id number] Implanted:Qty: 1 on 07/22/2023 by Humberto Mohan MD at [facility] Implant Left: Shoulder [employer] 04/27/2027 [id number] Insurance Care Teams Senior Quality Control Technician Relationship Specialty Start Date End Date Jacques Maher DO [address] [place], [place] [id number] PCP - General Internal Medicine 07/14/23
--- OUTSIDE RECORDS SUMMARY | 2025-02-25 14:18 | XMS_ITS | Encounter Summary ---
Author Organization Healthcare Address [address] [place] [address] Care Team Providers Care Cloth Spreader Name Role Phone Ewa Sandy APRN Primary Care Provider [phone] Anatoliy Coyne MD Primary Care Provider [phone] Encounter Details Date Type Department Care Team (Late st Contact Info) Description 06/18/2022 Orders Only External Location [address] [place] [address] Anatoliy Coyne MD [address] [place], [place] [id number] Social History Tobacco Use Types Packs/Day Years [...] on filedocumented in this encounter Care Teams Cloth Spreader Relationship Specialty Start Date End Date Ewa Sandy APRN [address] [place] [address] PCP - General 08/08/20 01/27/23 Anatoliy Coyne MD [address] [place] [address] [place] [address] PCP - General 01/28/23 documented as of this encounter
--- OUTSIDE RECORDS SUMMARY | 2025-02-25 14:19 | XMS_ITS | Encounter Summary ---
Author Organization Healthcare Address [address] [place] [address] Care Team Providers Care Water Quality Control Engineer Name Role Phone Anatoliy Coyne MD Primary Care Provider Encounter Details Date Type Department Care Team ([facility] st Contact Info) Description 04/13/2023 Orders Only External Location [address] [place] [address] Provider, External Social History Tobacco Use Types [...] documented as of this encounter Care Teams Water Quality Control Engineer Relationship Specialty Start Date End Date Anatoliy Coyne MD [address] [place] [address] PCP - General 01/28/23 documented as of this encounter
--- OUTSIDE RECORDS SUMMARY | 2025-02-25 14:19 | XMS_ITS | Clinical Summary ---
Author Organization [facility] , [facility] Address [address] [place] [address] Phone Care Team Providers Care Campus Supervisor Name Role Phone Marques MEDEL, Humberto Reed Unavailable Unavail able Jacques Maher Unavailable Unavailable Reason for Visit and Chief Complaint The Chief Complaint is: left shoulder pain Problems Includes: Problems addressed during this encounter and other active Problems Current Visit Onset Date Resolved Date Provider Conditio n Status Lower Back Pain 06/06/2023 Kaylin Thornton-C Active Last Documented On 4 9:45AM ; [facility], [facility] Past Visits Onset Date Resolved Date Provider Condition Status Joint Pain Shoulder Left 06/02/2023 Kaylin Pulido PA-C Active Last Documented On 4 3:01PM ; [facility], [facility] Plan of Treatment Pending Tests Order Diagnosis Results Due Ordering P sera Therapy - Physical Therapy Shoulder Tobacco abuse counseling 12/14/23 Anatoliy Mckenna PA-C Last Documented On 4 1:14PM ; [facility], [facility] Instructions to patient Intervention and counseling on cessation of tobacco use Last Documented On 4 1:06PM ; [facility], [facility] Lose weight Last Documented On 4 1:06PM ; [facility], [facility] Assessments Includes: Assessments from this encounter Findings - Overweight - Last Documented On 12/14/2023 1:18PM ; [facility], [facility] Left cuff repair - Last Documented On 12/14/2023 1:18PM ; [facility], [facility] Instructions Includes: Instructions from this encounter Instructions to patient Intervention and counseling on cessation of tobacco use Last Documented On 4 1:06PM ; [facility] Lose weight Last Documented On 4 1:06PM ; [facility] Medical Equipment - Implanted Devices Includes: Current Devices No Medical Equipment Recorded Medications Includes: Medications discussed during this encounter and other current Medications New / Renewed during this visit Anatoliy Mckenna PA-C on 12/14/2023 Triamcinolone Acetonide 0.1% External Cream Provider: Anatoliy Charles 30 day supply: 1 gram, 0 refills Diagnosis: twice a day Pharmacy: [facility] [place] - [facility], [facility] - [address] [facility] , [place] [facility] [address] [place], [address] - Last Documented On 4 1:27PM By Anatoliy Mckenna ; [facility] Pepcid 20 MG Oral Tablet Provider: Prabhakar Mckenna PA-C 30 day supply: 30 tablet, 0 refills Diagnosis: once a day Pharmacy: [facility] - [address] [facility] , [place] [facility] [address] [place], [address] - Last Documented On 4 1:27PM By Anatoliy Mckenna ; [facility] Current Medications (continue as prescribed) Amantadine HCl 100 MG Oral Tablet 12/05/2023 Provide r: GIOVANNA RAYMOND MD Diagnosis: Last Documented On 4 1:07PM By Marychuy Serrano ; [facility] Gabapentin 800 MG Oral Tablet 12/04/2023 Provider: Diagnosis: Last Documented On 4 1:07PM By Marychuy Serrano ; [facility] Testosterone Cypionate 200 M G/ML Intramuscular Solution 11/30/2023 Provider: BINDU MONTENEGRO MD Diagnosis: Last Documented On 4 1:07PM By Marychuy Serrano ; [facility] FT Allergy Relief 24 Hour 180 MG Oral Tablet 4 Provider: Diagnosis: Last Documented On 4 1:07PM By Marychuy Serrano ; [facility] Rosuvastatin Calcium 10 MG Oral Tablet 11/10/2023 Pr ovider: Diagnosis: Last Documented On 4 1:07PM By Marychuy Serrano ; [facility] oxyCODONE HCl 5 MG Oral Tablet 11/09/2023 Provider: Humberto Mohan MD Diagnosis: Last Documented On 4 1:07PM By Marychuy Serrano ; [facility] Amantadine HCl 100 MG Oral Tablet 11/07/2023 Provide r: GIOVANNA RAYMOND MD Diagnosis: Last Documented On 4 1:07PM By Marychuy Serrano ; [facility] Atorvastatin Calcium 20 MG Oral Tablet 09/26/2023 Pr ovider: Diagnosis: Last Documented On 4 12:31PM By Kris Gutierrez ; [facility] Amantadine HCl 100 MG Oral Tablet 09/12/2023 Provide r: GIOVANNA RAYMOND MD Diagnosis: Last Documented On 4 12:31PM By Kris Gutierrez ; [facility], [facility] Cephalexin 500 MG Oral Capsule 07/24/2023 Provider: Diagnosis: Last Documented On 4 8:44AM By Humberto Mohan ; [facility], [facility] Testosterone Cypionate 200 M G/ML Intramuscular Solution 05/26/2023 Provider: BINDU MONTENEGRO MD Diagnosis: Last Documented On 4 3:01PM By Dominique Murray ; [facility] Lisinopril 40 MG Oral Tablet 05/13/2023 Provider: Diagnosis: Last Documented On 4 3:01PM By Dominique Murray ; [facility], [facility] HM Allergy Relief 180 MG Oral Tablet 05/11/2023 Prov ider: Anatoliy Coyne MD Diagnosis: Last Documented On 4 3:01PM By Dominique Murray ; [facility] Gabapentin 800 MG Oral Tablet 05/08/2023 Provider: Diagnosis: Last Documented On 4 3:01PM By Dominique Murray ; [facility] Amitriptyline HCl 25 MG Oral Tablet 05/03/2023 Provi becky: Diagnosis: Last Documented On 4 3:01PM By Dominique Murray ; [facility] HYDROcodone-Acetaminophen 7.5-325 MG Oral Tablet 04/19 Provider: Diagnosis: Last Documented On 4 3:01PM By Dominique Murray ; [facility] Past Medications on file oxyCODONE HCl 5 MG Oral Tablet 11/09/2023 - 11/16/2023 Provider: Humberto kapadia MD Diagnosis: 1 q 6 hours prn pain Last Documented On 4 3:28PM By Humberto Mohan ; [facility] oxyCODONE HCl 5 MG Oral Tablet 11/02/2023 - 11/09/2023 Provider: Humberto kapadia MD Diagnosis: 1 q 6 hours prn pain Last Documented On 4 12:19PM By Humberto Mohan ; [facility] oxyCODONE HCl 5 MG Oral Tablet 10/25/2023 - 11/01/2023 Provider: Humberto kapadia MD Diagnosis: 1 q 6 hours prn pain Last Documented On 4 2:47PM By Humberto Mohan ; [facility] oxyCODONE HCl 5 MG Oral Tablet 10/17/2023 - 10/24/2023 Provider: Humberto kapadia MD Diagnosis: 1 q 6 hours prn pain Last Documented On 4 4:10PM By Humberto Mohan ; [facility] oxyCODONE HCl 5 MG Oral Tablet 10/12/2023 - 10/19/2023 Provider: Humberto kapadia MD Diagnosis: 1 q 6 hours prn pain Last Documented On 4 4:14PM By Humberto Mohan ; [facility] HYDROcodone-Acetaminophen 5- 325 MG Oral Tablet 10/10/2023 - 10/17/2023 Provider: Humberto Mohan MD Diagnosis: three times a day Last Documented On 4 1:19PM By Humberto Mohan ; [facility] oxyCODONE HCl 5 MG Oral Tablet 10/03/2023 - 10/08/2023 Provider: Humberto kapadia MD Diagnosis: 1-2 po q 4-6h prn post op pain Last Documented On 4 4:36PM By Humberto Mohan ; [facility] oxyCODONE HCl 5 [...] On 4 5:36PM By Humberto Mohan ; [facility] oxyCODONE HCl 5 MG Oral Tablet 08/30/2023 - 09/04/2023 Provider: Humberto kapadia MD Diagnosis: 1-2 po q 4-6h prn post op pain Last Documented On 4 9:51AM By Humberto Mohan ; [facility] oxyCODONE HCl 5 MG Oral Tablet 08/24/2023 - 08/29/2023 Provider: Humberto kapadia MD Diagnosis: 1-2 po q 4-6h prn post op pain Last Documented On 4 3:04PM By Humberto Mohan ; [facility] [...] On 4 4:26PM By Humberto Mohan ; [facility] oxyCODONE HCl 5 MG Oral Tablet 08/08/2023 - 08/13/2023 Provider: Humberto kapadia MD Diagnosis: 1-2 po q 4-6h prn post op pain Last Documented On 4 2:43PM By Humberto Mohan ; [facility] oxyCODONE HCl 5 MG Oral Tablet 08/04/2023 - 08/09/2023 Provider: Humberto kapadia MD Diagnosis: 1-2 po q 4-6h prn post op pain Last Documented On 4 4:23PM By Humberto Mohan ; [facility] oxyCODONE HCl 5 MG Oral Tablet 07/28/2023 - 08/02/2023 Provider: Humberto kapadia MD Diagnosis: 1-2 po q 4-6h prn post op pain Last Documented On 4 8:59AM By Humberto Mohan ; [facility] Ondansetron HCl 4 MG Oral Tablet 07/07/2023 - 07/17/2023 Provider: Humberto kapadia MD Diagnosis: 1 q 8 hours prn nausea 1 q 8 hours prn post op nausea Last Documented On 4 8:38AM By Jennifer Finley ; [facility] Benzoyl Peroxide Wash 5% External Liquid 07/07/2023 - 07/08/2023 Provider: Humberto kapadia MD Diagnosis: use as directed by Dr. Mohan Last Documented On 4 8:38AM By Jennifer Finley ; [facility] Medications Administered Includes: Administered Medications [...] 07/05/2023 Last Documented On 4 1:06PM ; [facility], [facility] Alcohol use 06/02/2023 Last Documented On 4 1:06PM ; [facility], [facility] Caffeine use 06/02/2023 Last Documented On 4 1:06PM ; [facility], [facility] No recent change in diet 06/02/2023 Last Documented On 4 1:06PM ; [facility], [facility] Not exercising regularly 06/02/2023 Last Documented On 4 1:06PM ; [facility], [facility] Not using drugs 06/02/2023 Last Documented On 4 1:06PM ; [facility], [facility] Yes, current smoker. 06/02/2023 Last Documented On 4 1:06PM ; [facility], [facility] Tobacco non-user 06/02/2023 Last Documented On 4 1:06PM ; [facility], [facility] Smoking Status Unknown Procedures and Surgical History Includes: Procedures from this encounter Procedures Code Diagnosis Performing Provider Service L ocation Service Date intervention and counseling on cessation of tobacco use 4000F Last Documented On 4 1:06PM ; [facility], [facility] use of tobacco assessment performed 1000F Last Documented On 4 1:06PM ; [facility], [facility] review of medications documented 1160F Last Documented On 4 1:06PM ; [facility], [facility] an X-ray was performed 03013 Last Documented On 4 1:06PM ; [facility], [facility] an MRI was performed 22104 Last Documented On 4 1:06PM ; [facility], [facility] Surgical History Last Updated History of hernia repair 06/02/2023 Last Documented On 4 1:06PM ; [facility], [facility] History of Previous Fractures 06/02/2023 Last Documented On 4 1:06PM ; [facility], [facility] Medical History Includes: Medical History addressed during this encounter Description Last Updated History of arthritis 06/02/2023 Last Documented On 4 1:06PM ; [facility], [facility] History of diverticulitis of colon 06/01 Last Documented On 4 1:06PM ; [facility], [facility] History of Fractures 06/02/2023 Last Documented On 4 1:06PM ; [facility], [facility] History of History of Blood Transfusion 06/02/2023 Last Documented On 4 1:06PM ; [facility], [facility] History of Hypertension 06/02/2023 Last Documented On 4 1:06PM ; [facility], [facility] History of Sleep Apnea 06/02/2023 Last Documented On 4 1:06PM ; [facility], [facility] Family History Includes: Family History addressed during this encounter Description Last Updated Family history of heart disease 06/02/19 Last Documented On 4 1:06PM ; [facility], [facility] Family history of rheumatoid arthritis 0 06/02/2023 Last Documented On 4 1:06PM ; [facility] Family history of systemic hypertension 06/02/2023 Last Documented On 4 1:06PM ; [facility] Review of Systems Includes: Review [...] Time Diagnosis Follow Up Anatoliy Mckenna PA-C [facility] 12/14/19 24 12:27PM 1:14PM Overweight Insurance Includes: Active Insurance Policies Plan Name Member ID Group # Subscriber Relationship Effect kayleigh Dates 1 - [employer] [facility] [id number] Bindu Cooper Self Clinical Notes Includes: Clinical Notes from this encounter * Progress note Date Encounter Last Documented by 12/14/2023 Follow Up Last documented on 12/14/2023; 1:18 PM, Anatoliy Mckenna PA-C; [facility] Active Problems & Conditions - [...]
--- OUTSIDE RECORDS SUMMARY | 2025-02-25 14:19 | XMS_ITS | Clinical Summary ---
Author Organization [facility] , [facility] Address [address] [place] [address] Phone Care Team Providers Care Development Representative Name Role Phone Marques MEDEL, Humberto Reed Unavailable [phone] Jacques Maher Unavailable Unavailable Reason for Visit and Chief Complaint [Patient Encounter] Problems Includes: Problems addressed during this encounter and other active Problems All Visits Onset Date Resolved Date Provider Condition S tatus Lower Back Pain 06/06/2023 Kaylin Thornton-Andreas Active Last Documented On 4 9:45AM ; [facility] Joint Pain Shoulder Left 06/02/2023 Kaylin Pulido PA-C Active Last Documented On 4 3:01PM ; [facility] Plan of Treatment No Plan of [...] 1 q 6 hours prn pain Pharmacy: [facility] [address], [address] - Last Documented On 4 3:28PM By Humberto Mohan ; [facility] Current Medications (continue as prescribed) Triamcinolone Acetonide 0.1% External Cream 12/14/2023 Provider: Anatoliy Charles Diagnosis: twice a day Last Documented On 4 1:27PM By Anatoliy Mckenna ; [facility] Pepcid 20 MG Oral Tablet 12/14/2023 Provider: Prabhakar Mckenna PA-C Diagnosis: once a day Last Documented On 4 1:27PM By Anatoliy Mckenna ; [facility] Amantadine HCl 100 MG Oral Tablet 12/05/2023 Provide r: GIOVANNA RAYMOND MD Diagnosis: Last Documented On 4 1:07PM By Marychuy Serrano ; [facility] Gabapentin 800 MG Oral Tablet 12/04/2023 Provider: Diagnosis: Last Documented On 4 1:07PM By Marychuy Serrano ; [facility] Testosterone Cypionate 200 M G/ML Intramuscular Solution 11/30/2023 Provider: YUSUF MONTENEGRO MD Diagnosis: Last Documented On 4 1:07PM By Marychuy Serrano ; [facility], [facility] FT Allergy Relief 24 Hour 180 MG Oral Tablet 4 Provider: Diagnosis: Last Documented On 4 1:07PM By Marychuy Serrano ; [facility] Rosuvastatin Calcium 10 MG Oral Tablet 11/10/2023 Pr ovider: Diagnosis: Last Documented On 4 1:07PM By Marychuy Serrano ; [facility] oxyCODONE HCl 5 MG Oral Tablet 11/09/2023 Provider: Humberto Mohan MD Diagnosis: Last Documented On 4 1:07PM By Marychuy Serrano ; [facility] Amantadine HCl 100 MG Oral Tablet 11/07/2023 Provide r: GIOVANNA RAYMOND MD Diagnosis: Last Documented On 4 1:07PM By Marychuy Serrano ; [facility] Atorvastatin Calcium 20 MG Oral Tablet 09/26/2023 Pr ovider: Diagnosis: Last Documented On 4 12:31PM By Kris Gutierrez ; [facility] Amantadine HCl 100 MG Oral Tablet 09/12/2023 Provide r: GIOVANNA RAYMOND MD Diagnosis: Last Documented On 4 12:31PM By Kris Gutierrez ; [facility] Cephalexin 500 MG Oral Capsule 07/24/2023 Provider: Diagnosis: Last Documented On 4 8:44AM By Humberto Mohan ; [facility] Testosterone Cypionate 200 M G/ML Intramuscular Solution 05/26/2023 Provider: YUSUF MONTENEGRO MD Diagnosis: Last Documented On 4 3:01PM By Dominique Murray ; [facility] Lisinopril 40 MG Oral Tablet 05/13/2023 Provider: Diagnosis: Last Documented On 4 3:01PM By Dominique Murray ; [facility] HM Allergy Relief 180 MG Oral Tablet 05/11/2023 Prov ider: Anatoliy Coyne MD Diagnosis: Last Documented On 4 3:01PM By Dominique Murray ; [facility] Gabapentin 800 MG Oral Tablet 05/08/2023 Provider: Diagnosis: Last Documented On 4 3:01PM By Dominique Murray ; [facility] Amitriptyline HCl 25 MG Oral Tablet 05/03/2023 Provi becky: Diagnosis: Last Documented On 4 3:01PM By Dominique Murray ; [facility] HYDROcodone-Acetaminophen 7.5-325 MG Oral Tablet 04/19 Provider: Diagnosis: Last Documented On 4 3:01PM By Dominique Murray ; [facility] Medications Administered Includes: Administered Medications from this [...] Relationship Effect kayleigh Dates 1 - [employer] [facility] [id number] Yusuf Cooper Self Clinical Notes Includes: Clinical Notes from this encounter No Clinical Notes Recorded
--- OUTSIDE RECORDS SUMMARY | 2025-02-25 14:19 | XMS_ITS | Encounter Summary ---
Author Organization Healthcare Address [address] [place] [address] Care Team Providers Care Concrete Sculptor Name Role Phone Anatoliy Coyne MD Primary Care Provider [phone] Encounter Details Date Type Department Care Team ([facility] st Contact Info) Description 03/25/2023 Orders Only External Location [address] [place] [address] Provider, External Social History Tobacco Use Types [...] documented as of this encounter Care Teams Concrete Sculptor Relationship Specialty Start Date End Date Anatoliy Coyne MD [address] [place] [address] PCP - General 01/28/23 documented as of this encounter
--- OUTSIDE RECORDS SUMMARY | 2025-02-25 14:19 | XMS_ITS | Clinical Summary ---
Author Organization [facility] Address [address] [place] [address] Phone Care Team Providers Care Medical Insurance Biller Name Role Phone Marques MEDEL, Humberto Reed Unavailable Unavail able Jacques Maher Unavailable Unavailable Reason for Visit and Chief Complaint The Chief Complaint is: left shoulder pain Problems Includes: Problems addressed during this encounter and other active Problems Current Visit Onset Date Resolved Date Provider Conditio n Status Lower Back Pain 06/06/2023 Kaylin Pulido P A-C Active Last Documented On 4 9:45AM ; [facility], [facility] Past Visits Onset Date Resolved Date Provider Condition Status Joint Pain Shoulder Left 06/02/2023 Kaylin Pulido PA-C Active Last Documented On 4 3:01PM ; [facility], [facility] Plan of Treatment Patient is progressing as expected. Rotator cuff repair rehab typically takes between 6- 8 months. The patient will have no restrictions in therapy at this time. They understand the recommendations. Patient will follow-up as scheduled, if there are any issues they can feel free to call the office. - Last Documented On 10/10/2023 2:14PM ; [facility], [facility] Pending Tests Order Diagnosis Results Due Ordering sera Therapy - Physical Therapy Shoulder Pain in left shoulder 10/10/23 Kaylin Pulido PA-C Last Documented On 4 2:14PM ; [facility], [facility] Instructions to patient Intervention and counseling on cessation of tobacco use Last Documented On 4 12:31PM ; [facility], [facility] Lose weight Last Documented On 4 12:31PM ; [facility] Assessments Includes: Assessments from this encounter Findings - Overweight - Last Documented On 10/10/2023 2:14PM ; [facility] Left cuff repair - Last Documented [...] a day Pharmacy: [facility] [email or web address] [address] - Last Documented On 4 1:19PM By Humberto Mohan ; [facility] Current Medications (continue as prescribed) Triamcinolone Acetonide 0.1% External Cream 12/14/2023 Provider: Anatoliy Charles Diagnosis: twice a day Last Documented On 4 1:27PM By [facility] Pepcid 20 MG Oral Tablet 12/14/2023 Provider: Prabhakar Mckenna PA-C Diagnosis: once a day Last Documented On 4 1:27PM By [facility] Amantadine HCl 100 MG [...] On 4 1:07PM By Marychuy Serrano ; [facility] FT Allergy Relief 24 Hour 180 MG Oral Tablet 4 Provider: Diagnosis: Last Documented On 4 1:07PM By Marychuy Serrano ; [facility] Rosuvastatin Calcium 10 MG Oral Tablet 11/10/2023 Pr ovider: Diagnosis: Last Documented On 4 1:07PM By Marychuy Serrano ; [facility] oxyCODONE HCl 5 MG Oral Tablet 11/09/2023 Provider: Humberto Mohan MD Diagnosis: Last Documented On 4 1:07PM By Marychuy Serrano ; [facility] Amantadine HCl 100 MG Oral Tablet 11/07/2023 Provide r: GIOVANNA RAYMOND MD Diagnosis: Last Documented On 4 1:07PM By Marychuy Serrano ; [facility], [facility] Atorvastatin Calcium 20 MG Oral Tablet 09/26/2023 Pr ovider: Diagnosis: Last Documented On 4 12:31PM By Kris Gutierrez ; [facility], [facility] Amantadine HCl 100 MG Oral Tablet 09/12/2023 Provide r: GIOVANNA RAYMOND MD Diagnosis: Last Documented On 4 12:31PM By Kris Gutierrez ; [facility], [facility] Cephalexin 500 MG Oral Capsule 07/24/2023 Provider: Diagnosis: Last Documented On 4 8:44AM By Humberto Mohan ; [facility], [facility] Testosterone Cypionate 200 M G/ML Intramuscular Solution 05/26/2023 Provider: BINDU MONTENEGRO MD Diagnosis: Last Documented On 4 3:01PM By Dominique Murray ; [facility] Lisinopril 40 MG Oral Tablet 05/13/2023 Provider: Diagnosis: Last Documented On 4 3:01PM By Dominique Murray ; [facility] HM Allergy Relief 180 MG Oral Tablet 05/11/2023 Prov ider: Anatoliy Coyne MD Diagnosis: Last Documented On 4 3:01PM By Dominique Murray ; [facility] Gabapentin 800 MG Oral Tablet 05/08/2023 Provider: Diagnosis: Last Documented On 4 3:01PM By Dominique Murray ; [facility], [facility] Amitriptyline HCl 25 MG Oral Tablet 05/03/2023 Provi becky: Diagnosis: Last Documented On 4 3:01PM By Dominique Murray ; [facility] HYDROcodone-Acetaminophen 7.5-325 MG Oral Tablet 04/19 Provider: Diagnosis: Last Documented On 4 3:01PM By Dominique Murray ; [facility], [facility] Past Medications on file oxyCODONE HCl 5 MG Oral Tablet 11/09/2023 - 11/16/2023 Provider: Humberto kapadia MD Diagnosis: 1 q 6 hours prn pain Last Documented On 4 3:28PM By Humberto Mohan ; [facility], [facility] oxyCODONE HCl 5 MG Oral Tablet 11/02/2023 - 11/09/2023 Provider: Humberto kapadia MD Diagnosis: 1 q 6 hours prn pain Last Documented On 4 12:19PM By Humberto Mohan ; [facility] oxyCODONE HCl 5 MG Oral Tablet 10/25/2023 - 11/01/2023 Provider: Humberto kapadia MD Diagnosis: 1 q 6 hours prn pain Last Documented On 4 2:47PM By Humberto Mohan ; [facility] oxyCODONE HCl 5 MG Oral Tablet 10/17/2023 - 10/24/2023 Provider: Humberto kapadia MD Diagnosis: 1 q 6 hours prn pain Last Documented On 4 4:10PM By Humberto Mohan ; [facility] oxyCODONE HCl 5 MG Oral Tablet 10/12/2023 - 10/19/2023 Provider: Humberto kapadia MD Diagnosis: 1 q 6 hours prn pain Last Documented On 4 4:14PM By Humberto Mohan ; [facility] oxyCODONE HCl 5 MG Oral Tablet 10/03/2023 - 10/08/2023 Provider: Humberto kapadia MD Diagnosis: 1-2 po q 4-6h prn post op pain Last Documented On 4 4:36PM By Humberto Mohan ; [facility] oxyCODONE HCl 5 MG Oral Tablet 09/26/2023 - 10/01/2023 Provider: Humberto kapadia MD Diagnosis: 1-2 po q 4-6h prn post op pain Last Documented On 4 12:05PM By Humberto Mohan ; [facility] oxyCODONE HCl 5 MG Oral Tablet 09/19/2023 - 09/24/2023 Provider: Humberto kapadia MD Diagnosis: 1-2 po q 4-6h prn post op pain Last Documented On 4 12:37PM By Humberto Mohan ; [facility] oxyCODONE HCl 5 MG Oral Tablet 09/12/2023 - 09/17/2023 Provider: Humberto kapadia MD Diagnosis: 1-2 po q 4-6h prn post op pain Last Documented On 4 9:53AM By Humberto Mohan ; [facility] oxyCODONE HCl 5 MG Oral Tablet 09/05/2023 - 09/10/2023 Provider: Humberto kapadia MD Diagnosis: 1-2 po q 4-6h prn post op pain Last Documented On 4 5:36PM By Humberto Mohan ; [facility] oxyCODONE HCl 5 MG Oral Tablet 08/30/2023 - 09/04/2023 Provider: Humberto kapadia MD Diagnosis: 1-2 po q 4-6h prn post op pain Last Documented On 4 9:51AM By Humberto Mohan ; [facility] oxyCODONE HCl 5 MG Oral Tablet 08/24/2023 - 08/29/2023 Provider: Humberto kapadia MD Diagnosis: 1-2 po q 4-6h prn post op pain Last Documented On 4 3:04PM By Humberto Mohan ; [facility] oxyCODONE HCl 5 MG Oral Tablet 08/17/2023 - 08/22/2023 Provider: Humberto kapadia MD Diagnosis: 1-2 po q 4-6h prn post op pain Last Documented On 4 12:45PM By Humberto Mohan ; [facility], [facility] oxyCODONE HCl 5 MG Oral Tablet 08/12/2023 - 08/17/2023 Provider: Humberto kapadia MD Diagnosis: 1-2 po q 4-6h prn post op pain Last Documented On 4 4:26PM By Humberto Mohan ; [facility], [facility] oxyCODONE HCl 5 MG Oral Tablet 08/08/2023 - 08/13/2023 Provider: Humberto kapadia MD Diagnosis: 1-2 po q 4-6h prn post op pain Last Documented On 4 2:43PM By Humberto Mohan ; [facility], [facility] oxyCODONE HCl 5 MG Oral Tablet 08/04/2023 - 08/09/2023 Provider: Humberto kapadia MD Diagnosis: 1-2 po q 4-6h prn post op pain Last Documented On 4 4:23PM By Humberto Mohan ; [facility] oxyCODONE HCl 5 MG Oral Tablet 07/28/2023 - 08/02/2023 Provider: Humberto kapadia MD Diagnosis: 1-2 po q 4-6h prn post op pain Last Documented On 4 8:59AM By Humberto Mohan ; [facility] Ondansetron HCl 4 MG Oral Tablet 07/07/2023 - 07/17/2023 Provider: Humberto kapadia MD Diagnosis: 1 q 8 hours prn nausea 1 q 8 hours prn post op nausea Last Documented On 4 8:38AM By Jennifer Finley ; [facility], [facility] Benzoyl Peroxide Wash 5% External Liquid 07/07/2023 - 07/08/2023 Provider: Humberto kapadia MD Diagnosis: use as directed by Dr. Mohan Last Documented On 4 8:38AM By Jennifer Finley ; [facility] Medications Administered Includes: Administered Medications from this encounter No Administered Medications Recorded Vital Signs Includes: Vital Signs from this encounter Vital Name 10/10/2023 12:31P Height (in) 71 Weight (lb) 240 Body Mass Index 33.5 Body Surface Area 2.3 Note: kld Last Documented: On 10/10/2023 12:31P M ; [facility], [facility] Results Includes: Results discussed during this [...] 07/05/2023 Last Documented On 4 12:31PM ; [facility] Alcohol use 06/02/2023 Last Documented On 4 12:31PM ; [facility], [facility] Caffeine use 06/02/2023 Last Documented On 4 12:31PM ; [facility], [facility] No recent change in diet 06/02/2023 Last Documented On 4 12:31PM ; [facility], [facility] Not exercising regularly 06/02/2023 Last Documented On 4 12:31PM ; [facility], [facility] Not using drugs 06/02/2023 Last Documented On 4 12:31PM ; [facility] Yes, current smoker. 06/02/2023 Last Documented On 4 12:31PM ; [facility], [facility] Tobacco non-user 06/02/2023 Last Documented On 4 12:31PM ; [facility], [facility] Smoking Status Unknown Procedures and Surgical History Includes: Procedures from this encounter Procedures Code Diagnosis Performing Provider Service L ocation Service Date intervention and counseling on cessation of tobacco use 4000F Last Documented On 4 12:31PM ; [facility], [facility] use of tobacco assessment performed 1000F Last Documented On 4 12:31PM ; [facility], [facility] review of medications documented 1160F Last Documented On 4 12:31PM ; [facility] an X-ray was performed 86101 Last Documented On 4 12:31PM ; [facility] an MRI was performed 88323 Last Documented On 4 12:31PM ; [facility] Surgical History Last Updated History of hernia repair 06/02/2023 Last Documented On 4 12:31PM ; [facility] History of Previous Fractures 06/02/2023 Last Documented On 4 12:31PM ; [facility] Medical History Includes: Medical History addressed during this encounter Description Last Updated History of arthritis 06/02/2023 Last Documented On 4 12:31PM ; [facility] History of diverticulitis of colon 06/01 Last Documented On 4 12:31PM ; [facility] History of Fractures 06/02/2023 Last Documented On 4 12:31PM ; [facility] History of History of Blood Transfusion 06/02/2023 Last Documented On 4 12:31PM ; [facility] History of Hypertension 06/02/2023 Last Documented On 4 12:31PM ; [facility] History of Sleep Apnea 06/02/2023 Last Documented On 4 12:31PM ; [facility] Family History Includes: Family History addressed during this encounter Description Last Updated Family history of heart disease 06/02/19 Last Documented On 4 12:31PM ; [facility] Family history of rheumatoid arthritis 0 06/02/2023 Last Documented On 4 12:31PM ; [facility] Family history of systemic hypertension 06/02/2023 Last Documented On 4 12:31PM ; [facility] Review of Systems Includes: Review of [...] Time Diagnosis Post Op Kaylin Pulido PA-C [facility] 4 12:13PM 1:08PM Overweight Insurance Includes: Active Insurance Policies Plan Name Member ID Group # Subscriber Relationship Effect kayleigh Dates 1 - [employer] [facility] [id number] Bindu Cooper Self Clinical Notes Includes: Clinical Notes from this encounter * Progress note Date Encounter Last Documented by 10/10/2023 Post Op Last documented on 10/10/2023; 2:14 PM, Kaylin Pulido PA-C; [facility], [facility] Active Problems & Conditions - Joint [...]
--- NOTE | 2025-02-25 14:45 | CT_ITS ---
FINAL REPORT TECHNIQUE: Thin section axial images were obtained through the lungs using a low-dose technique per lung cancer screening protocol. Reconstruction images were obtained using the axial data. Exam was performed using dose reduction technique. CLINICAL HISTORY: lung cancer screening current smoker 1ppd x40 years COMPARISON: CT of the chest 01/28/2020 FINDINGS: CTDLvol: 2.90 DLP: 110.46 Current smoker 40 pack year history Lungs: No acute pulmonary abnormality. No suspicious nodules. There is evidence of prior granulomatous disease. Mild changes of emphysema are noted. The previous ground glass opacities noted in the lung ching bilaterally have resolved. Lymph nodes: The right paratracheal node seen on the prior CT of the chest has decreased in size as has the hilar adenopathy. Mediastinum: Heart size is normal. Prominent coronary artery calcifications remain present. Pleura/pericardium: No pleural or pericardial effusion. Other: Note is made of multiple the spleen has likely been resected. IMPRESSION: No suspicious pulmonary nodule or mass. Lung RADS: 1S, the S designation for dense coronary artery calcifications. Recommendation: 12-month follow-up LDCT. Reviewed, Interpreted and Dictated by Lulú Castro MD Transcribed by Brianna Webster Authenticated and [facility]
[2025-02-25] MEDS: ALBUTEROL 0.083% 2.5 MG/3 ML NEB IH (15:45)
--- NOTE | 2025-02-25 15:47 | PC.NURSE ---
PFT completed without incident. Albuterol 0.083% given via HHN, per written protocol, Pt tolerated tx well.
== END 2025-02-25 23:59 | disposition home or self-care (01) ==
LOC: RAD 14:11
PROVIDERS: PCP Nurse Practitioner Family; Visit Provider Nurse Practitioner Family
DX: I25.10 Atherosclerotic heart disease of native coronary artery without angina pectoris (principal); R94.2 Abnormal results of pulmonary function studies; Z12.2 Encounter for screening for malignant neoplasm of respiratory organs; F17.210 Nicotine dependence, cigarettes, uncomplicated
CPT/HCPCS: 71271; 94010; 94727; 94729

== ENCOUNTER 2025-02-28 13:14 | Outpatient (CLI) | payer MEDICARE, MEDICAID, SELFPAY ==
[2025-02-28 13:36] LABS: Hematocrit 52.0 % (42.0-52.0); Hemoglobin 17.1 g/dL (14.1-18.0)
--- NOTE | 2025-02-28 13:50 | PC.NURSE ---
phlebotomy performed today by johnathan aragon. 18g IV started in the left forearm. 500ml drained off from [id number]. IV removed. pt tolerated well.
== END 2025-02-28 23:59 | disposition home or self-care (01) ==
LOC: INF 13:15
PROVIDERS: PCP Nurse Practitioner Family; Visit Provider Urology
DX: D75.1 Secondary polycythemia (principal)
CPT/HCPCS: 36415; 85014; 85018; 99195

== ENCOUNTER → 2025-03-16 19:24 | Outpatient (CLI) | payer MEDICARE, MEDICAID, SELFPAY ==
--- OUTSIDE RECORDS SUMMARY | 2025-03-11 21:31 | XMS_ITS | Continuity of Care Document ---
Author Organization [facility] Phone Care Team Providers Care Social Media Marketing Specialist Name Role Phone BINDU MONTENEGRO JR Unavailable BINDU MONTENEGRO JR Primary Attending BINDU MONTENEGRO JR Admitting NO, FAMILY P Primary Care ALLERGIES AND ADVERSE REACTIONS ALLERGIES AND ADVERSE REACTIONS Code System Allergy Substance Adverse Reaction Date Reaction (Severity) Comment Status Reported By Updated By UnAssessed Allergies. RESULTS Patient: VICKY RUANO Date of : [birth year] 73 LABORATORY RESULTS ORDER 100: TESTOSTERONE FREE /TOT EQUILIB (LOINC: 17660-0) ORDER DATE: March 06, 2025 8:29:00 PM UTC Specimen Source: Serum/Plasm a Specimen Type: Acellular blo od (serum or plasma) specimen PERFORMING LAB: [address] [id number] Result Comment: March 11, 2025 5:10:00 PM UTC Performed at: [facility] Result Comment: March 11, 2025 5:10:00 PM UTC [address] [place] [id number] Result Comment: March 11, 2025 5:10:00 PM UTC Student Services Rep: Nick Wren MD, Phone: [phone] Result Comment: March 11, 2025 5:10:00 PM UTC Final Result Date: March 06, 2025 8:29:00 PM UTC (TECH: LAB) LOINC TEST FLAG RESULT REFERENCE RANGE UPDA DANIEL BY 2986-8 Testosterone [Mass/volume] in Serum or Plasma N 426.4 ng/dL 264.0 ng/dL - 916.0 ng/dL March 06, 2025 8:29:00 PM UTC (TECH: LAB) 2991-8 Testosterone Free [Mass/volume] in Serum or Plasma N 11.77 ng/dL 5.00-21.00 March 06, 2025 8:29:00 PM UTC (TECH: LAB) 11905-8 Prostate Specific Ag Free/Prostate specific Ag.total in Serum or Plasma N 2.76 % 1.50-4.20 March 06, 2025 8:29:00 PM UTC (TECH: LAB) ORDER 200: ESTRADIOL (LOINC: 2243-4) ORDER DATE: March 06, 2025 8:29:00 PM UTC Specimen Source: Serum/Plasm a Specimen Type: Acellular blo od (serum or plasma) specimen PERFORMING LAB: [address] [id number] Result Comment: March 11, 2025 6:09:00 PM UTC Specimen Comment: Test(s) [id number], Sensitive Result Comment: March 11, 2025 6:09:00 PM UTC Specimen Comment: was developed and its performance characte Result Comment: March 11, 2025 6:09:00 PM UTC ristics Result Comment: March 11, 2025 6:09:00 PM UTC Specimen Comment: determined by [facility]. It has not been kate Result Comment: March 11, 2025 6:09:00 PM UTC ared or approved Result Comment: March 11, 2025 6:09:00 PM UTC Specimen Comment: by the Food and Drug Administration. Result Comment: March 11, 2025 6:09:00 PM UTC Result Comment: March 11, 2025 6:09:00 PM UTC Methodology: Liquid chromatography tandem mass Result Comment: March 11, 2025 6:09:00 PM UTC spectrometry(LC/MS/MS) Result Comment: March 11, 2025 6:09:00 PM UTC Performed at: [facility] Result Comment: March 11, 2025 6:09:00 PM UTC [facility] [place], [place] [phone] Result Comment: March 11, 2025 6:09:00 PM UTC Student Services Rep: Nick Wren MD, Phone: [phone] Result Comment: March 11, 2025 6:09:00 PM UTC Final Result Date: March 11, 2025 8:29:00 PM UTC (TECH: LAB) LOINC TEST FLAG RESULT REFERENCE RANGE UPDA DANIEL BY 2243-4 Estradiol (E2) [Mass/volume] in Serum or Plasma L 7.7 pg/mL 8.0-35.0 March 11 8:29:00 PM UTC (TECH: LAB) ORDER 300: HEMATOCRIT AND HE MOGLOBIN (LOINC: 21834-1) ORDER DATE: March 06, 2025 8:29:00 PM UTC Specimen Source: Whole Blood Specimen Type: Whole blood s ample PERFORMING LAB: [address] [id number] Result Comment: Final Result Date: March 06, 2025 8:39:00 PM UTC (TECH: MRB) LOINC TEST FLAG RESULT REFERENCE RANGE UPDA DANIEL BY 718-7 Hemoglobin [Mass/volume] in Blood H 17.3 g/dL 13.5 g/dL - 17.2 g/dL March 06, 2025 8:39:00 PM UTC (TECH: MRB) 95143-1 Hematocrit [Volume Fraction] of Blood H 53.2 % 42.0 % - 52.0 % March 06, 2025 8:39:00 PM UTC (TECH: MRB) ORDER 400: PROSTATE SPECIFIC AG SCREEN (LOINC: 2857-1) ORDER DATE: March 06, 2025 8:29:00 PM UTC Specimen Source: Serum/Plasm a Specimen Type: Acellular blo od (serum or plasma) specimen PERFORMING LAB: [address] [id number] Result Comment: Final Result Date: March 06, 2025 9:26:00 PM UTC (TECH: MRB) LOINC TEST FLAG RESULT REFERENCE RANGE UPDA DANIEL BY 2857-1 Prostate specific Ag [Mass/volume] in Serum or Plasma N 3.41 ng/mL 0.0 ng/mL - 4.0 ng/mL February 252024 9:26:00 PM UTC (TECH: MRB) LABORATORY NARRATIVE RESULTS Information is not available [...] RXNORM NDC Medication Dose Route Frequency Dates Dis pense Data Comments Physician Updated By No Discharge Medication Info rmation Available INPATIENT MEDICATIONS Status RXNORM NDC Medication Dose Route Frequency Rat e Quantity Dates Indication Dispense Data Comments Physician Updated By No Inpatient Medication Info rmation Available SOCIAL HISTORY SOCIAL HISTORY - Smoking Status SNOMED-CT Social History Element Description Effective Dates Offered Cessation Comment Updated By No Smoking Information Avail able SOCIAL HISTORY - Gender Sex: Male SOCIAL HISTORY - Status : status i nformation is not available Intention in Next Year: intention information is not available SOCIAL HISTORY - Assessments Code System Description Status Date Value of Assessment Updated By Comment Assessment Information is no t available SOCIAL HISTORY - [place] Affiliation [place] information is not av ailable SOCIAL HISTORY - Legal Sex Legal Sex : Male (finding) SOCIAL HISTORY - Sexual Behavior Sexual Orientation Gender Identity SNOMED-CT Description SNO MED -CT Description Activity Level No of Partners Partner Type UpdatedBy Information is not available SOCIAL HISTORY - Occupation Occupation information is no t available ENCOUNTERS ENCOUNTER INFORMATION Reason for Visit E34.9 Admission March 06, 2025 8:29:[address] [address] Discharge March 06, 2025 9:29:00 PM [facility] DISCHARGED TO HOME OR SELF CARE ENCOUNTER DIAGNOSES Notes information is not carmelo ilable. Code System Diagnosis Onset Date Diagnosis information is not available. 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 [id number] on March 11, 2025 10:25:32 AM [facility] E34.9 ICD10 ENDOCRINE DISORD ER, UNSPECIFIED [id number] on March 11, 2025 10:25:32 AM [facility] Z12.5 ICD10 ENCOUNTER FOR SC REENING FOR MALIGNANT NEOPLASM OF PROSTATE [id number] on March 11, 2025 10:25:32 AM [facility] E34.9 ICD10 ENDOCRINE DISORD ER, UNSPECIFIED [id number] on March 11, 2025 10:25:32 AM [facility] CARE TEAM Care Social Media Marketing Specialist Role BINDU MONTENEGRO Referring BINDU MONTENEGRO Primary Attending BINDU MONTENEGRO Admitting FAMILY NO Primary Care CARE TEAM CARE water plant operator Role on Team Location Telecom Status Start Date End Vince e Updated By LAN Mae JR, MD Referring [facility] [place], [address] normal March 06, 2025 5:00:00 AM [facility] March 06, 2025 9:29:00 PM [facility] [id number] on March 07, 2025 1:38:55 PM [facility] LAN Mae JR, MD Attending [address] [place], [address] normal March 06, 2025 5:00:00 AM [facility] March 06, 2025 9:29:00 PM [facility] [id number] on March 07, 2025 1:38:55 PM [facility] LAN Mae JR, MD Admitting [address] [place], [address] normal March 06, 2025 5:00:00 AM [facility] March 06, 2025 9:29:00 PM [facility] [id number] on March 07, 2025 1:38:55 PM [facility] NO FAMILY PHYSICIAN PCP [address] [place], [address] normal March 06, 2025 8:29:23 PM [facility] March 06, 2025 9:29:00 PM [facility] [id number] on March 07, 2025 1:38:55 PM [facility] INSURANCE PROVIDERS INSURANCE PROVIDER Coverage Status - Effective Date Coverage Type Payor Plan Order Relationship To Subscriber Insurance Plan No Insurance Plan 2024-03-28 M PRIMARY 18 [id number] MEDICARE LAB ONLY 2024-03-28 W SECONDARY 18 [id number] MEDICAID [place]
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
--- OUTSIDE RECORDS SUMMARY | 2025-03-16 19:29 | XMS_ITS | Encounter Summary ---
Author Organization Healthcare Address [address] [place] [address] Care Team Providers Care Driver Operator Name Role Phone Ewa Sandy APRN Primary Care Provider [phone] Anatoliy Coyne MD Primary Care Provider [phone] Encounter Details Date Type Department Care Team (Late st Contact Info) Description 06/18/2022 Orders Only External Location [address] [place] [address] Anatoliy Coyne MD [address] [place], [place] [id number] Social History Tobacco Use Types Packs/Day Years [...] on filedocumented in this encounter Care Teams Driver Operator Relationship Specialty Start Date End Date Ewa Sandy APRN [address] [place] [address] PCP - General 08/08/20 01/27/23 Anatoliy Coyne MD [address] [place] [address] [place] [address] PCP - General 01/28/23 documented as of this encounter
--- OUTSIDE RECORDS SUMMARY | 2025-03-16 19:29 | XMS_ITS | Patient Health Record ---
Author Organization [facility] Address [address] [place] [address] Care Team Providers Care Power Barker Name Role Phone YUMIKO PEREZ Primary Care [...] Status Risk Notes Problem Generalized anxiety disorder (55843749) Generalized anxiety disorder (300.02) 09/01/19 14 Active confirmed Silvestre-Bin Problem Dysthymia (09175034) Dysthymic disorder (300.4) 09/01/19 14 Active confirmed Silvestre-Bin Problem Essential hypertension (05317543) Unspecified essential hypertension (401.9) 09/01/19 14 Active confirmed Silvestre-Bin Problem Osteoarthritis (901642343) Osteoarthrosis, unspecified whether generalized or localized, other specified sites (715.98) 09/01/19 14 Active confirmed Silvestre-Bin Problem Tinea unguium (174740196) Tinea unguium (B35.1) 03/20/20 14 Active confirmed Silvestre-Bin Plan Of Treatment No Information Medical (General) History Surgical History Surgery Date(Month/Year) hernia repair
--- OUTSIDE RECORDS SUMMARY | 2025-03-16 19:29 | XMS_ITS | Encounter Summary ---
Author Organization Healthcare Address [address] [place] [address] Care Team Providers Care Rent And Miscellaneous Remittance Clerk Name Role Phone Anatoliy Coyne MD Primary Care Provider Encounter Details Date Type Department Care Team ([facility] st Contact Info) Description 03/25/2023 Orders Only External Location [address] [place] [address] Provider, External Social History Tobacco Use Types [...] documented as of this encounter Care Teams Rent And Miscellaneous Remittance Clerk Relationship Specialty Start Date End Date Anatoliy Coyne MD [address] [place] [address] PCP - General 01/28/23 documented as of this encounter
--- OUTSIDE RECORDS SUMMARY | 2025-03-16 19:29 | XMS_ITS | Encounter Summary ---
Author Organization Healthcare Address [address] [place] [address] Care Team Providers Care Death Surveys Coder Name Role Phone Anatoliy Coyne MD Primary Care Provider [phone] Encounter Details Date Type Department Care Team ([facility] st Contact Info) Description 04/13/2023 Orders Only External Location [address] [place] [address] Provider, External Social History Tobacco Use Types [...] documented as of this encounter Care Teams Death Surveys Coder Relationship Specialty Start Date End Date Anatoliy Coyne MD [address] [place] [address] PCP - General 01/28/23 documented as of this encounter
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
--- OUTSIDE RECORDS SUMMARY | 2025-03-16 19:29 | XMS_ITS | Encounter Summary ---
Author Organization Healthcare Address [address] [place] [address] Care Team Providers Care Inventory Analyst Name Role Phone Ewa Sandy APRN Primary Care Provider + [phone] Anatoliy Coyne MD Primary Care Provider + [phone] Encounter Details Date Type Department Care Team (Late st Contact Info) Description 09/13/2018 Orders Only External Location [address] [place] [address] Provider, External Social History Tobacco Use Types [...] on filedocumented in this encounter Care Teams Inventory Analyst Relationship Specialty Start Date End Date Ewa Sandy APRN [address] [place] [address] PCP - General 08/08/20 01/27/23 Anatoliy Coyne MD [address] [facility] [place] [address] PCP - General 01/28/23 documented as of this encounter
--- OUTSIDE RECORDS SUMMARY | 2025-03-16 19:29 | XMS_ITS | Encounter Summary ---
Author Organization Healthcare Address [address] [place] [address] Care Team Providers Care Senior Research Executive Name Role Phone Ewa Sandy APRN Primary Care Provider + [phone] Anatoliy Coyne MD Primary Care Provider + [phone] Encounter Details Date Type Department Care Team (Late st Contact Info) Description 12/30/2022 Orders Only External Location [address] [place] [address] Provider, External Social History Tobacco Use Types [...] on filedocumented in this encounter Care Teams Senior Research Executive Relationship Specialty Start Date End Date Ewa Sandy APRN [address] [place] [address] PCP - General 08/08/20 01/27/23 Anatoliy Coyne MD [address] [facility] [place] [address] PCP - General 01/28/23 documented as of this encounter
--- OUTSIDE RECORDS SUMMARY | 2025-03-16 19:29 | XMS_ITS | Clinical Summary ---
Author Organization [facility] Address [address] [place] [address] Care Team Providers Care Director Learning Services Name Role Phone Jacques Maher DO Primary Care Provider [phone] Allergies No known active allergies Medications ondansetron [...] or training? Not on file Preferred Language Mongolian 07/14/2023 Sex and Gender Information Value Date [...] 09/09/2028 019 Medical Devices Implanted Type Area Preforming Machine Operator Device Identifier Shelf Expiration Date Model / Serial / Lot Sys Sut/Anch Biocomp Speedbridge 4.85 12.5 - [id number] Implanted:Qty: 1 on 07/22/2023 by Humberto Mohan MD at [facility] Implant Left: Shoulder [employer] 04/27/2027 [id number] Insurance Care Teams Director Learning Services Relationship Specialty Start Date End Date Jacques Maher DO [address] [place], [place] [id number] PCP - General Internal Medicine 07/14/23
--- OUTSIDE RECORDS SUMMARY | 2025-03-16 19:29 | XMS_ITS | Encounter Summary ---
Author Organization [facility] Address [address] [place] [address] Care Team Providers Care Mainframe Architect Name Role Phone Ewa Sandy APRN Primary Care Provider + [phone] Anatoliy Coyne MD Primary Care Provider + [phone] Encounter Details Date Type Department Care Team (Late st Contact Info) Description 09/13/2018 Orders Only External Location [address] [place] [address] Provider, External Social History Tobacco Use Types [...] on filedocumented in this encounter Care Teams Mainframe Architect Relationship Specialty Start Date End Date Ewa Sandy APRN [address] [place] [address] PCP - General 08/08/20 01/27/23 Anatoliy Coyne MD [address] [facility] [place] [id number] PCP - General 01/28/23 documented as of this encounter
--- OUTSIDE RECORDS SUMMARY | 2025-03-16 19:29 | XMS_ITS | Encounter Summary ---
Author Organization [facility] Address [address] [place] [address] Care Team Providers Care Human Resources Coordinator Name Role Phone Ewa Sandy APRN Primary Care Provider + [phone] Anatoliy Coyne MD Primary Care Provider + [phone] Encounter Details Date Type Department Care Team (Late st Contact Info) Description 09/13/2018 Orders Only External Location [address] [place] [address] Provider, External Social History Tobacco Use Types [...] on filedocumented in this encounter Care Teams Human Resources Coordinator Relationship Specialty Start Date End Date Ewa Sandy APRN [address] [place] [address] PCP - General 08/08/20 01/27/23 nAatoliy Coyne MD [address] [facility] [place] [id number] PCP - General 01/28/23 documented as of this encounter
== END ==
LOC: SL 19:27
PROVIDERS: PCP Nurse Practitioner Family; Visit Provider Nurse Practitioner Family
DX: G47.33 Obstructive sleep apnea (adult) (pediatric) (principal); G47.36 Sleep related hypoventilation in conditions classified elsewhere
CPT/HCPCS: 95811